=== PATIENT | female | born 1935 | race Caucasian/White ===

== ENCOUNTER 2023-07-17 15:32 | Inpatient (IN) | payer MEDICARE, SELFPAY ==
--- NOTE | ~2023-07-17 | MMUS_ITS ---
EXAMINATION: US GUIDED NEEDLE BIOPSY DATE: 07/19/2023 12:27 CDT INDICATION: Large right 9:00 breast mass TECHNIQUE AND FINDINGS: The risks and potential benefits of the procedure were discussed with the patient, and written inform ed consent was obtained. Timeout procedure was performed. After sterile preparation of the right tomas st, 1% lidocaine was utilized for local anesthesia. A 12-gauge spring-loaded biopsy gun needle was advanced to the edge of the region of interest from a superomedial approach utilizing sonographic guidance. A total of three tissue core samples were obta ined through the lesion. An Inrad tissue marker clip was then placed at the biopsy site. Hemostasis was achieved. A sterile bandage was applied. The patient tolerated procedure well and there was no evidence of immediate complication. The patien t was given verbal instructions prior to departing from the department. A two view mammogram was perf ormed to document tissue marker clip placement. The tissue samples were submitted to surgical patholo gy for histologic analysis. IMPRESSION: Successful ultrasound guided biopsy of right 9:00 breast mass with biopsy marker placement. Please re elsie to pathology report for histologic analysis. Reviewed, dictated and finalized at [facility]. Reviewed, dictated and finalized at [facility]. IMPRESSION: Successful ultrasound guided biopsy of right 9:00 breast mass with biopsy marke r placement. Please refer to pathology report for histologic analysis.
--- NOTE | ~2023-07-17 | CT_ITS ---
EXAMINATION: CT chest abdomen pelvis w con DATE: 07/17/2023 17:20 CDT INDICATION: Headache TECHNIQUE: Computed tomography (CT) of the chest, abdomen, and pelvis was performed without intraveno us contrast. The dose-length product was 269.13 mGy-cm. Automated exposure control and iterative rashad nstruction technique were employed. COMPARISON: Pet/CT report dated 09/08/2015. Study is not currently available for direct visualization . FINDINGS: CHEST CT: Heart size normal. There is mediastinal lymphadenopathy, likely reactive. There is emphysema. There i s bronchiectasis of the right upper lobe with cavitary changes, likely related to prior infectious/in flammatory process with scarring. There is upper lobe infiltrates with nodular appearance in the ante rior lungs bilaterally. No endobronchial lesions. No pneumothorax. There is atherosclerosis of the ao rta. There is normal opacification of the pulmonary arteries without evidence for pulmonary embolism. There is coronary atherosclerosis. ABDOMEN/PELVIS CT: There are prominent parametrial vessels, suspicious for pelvic congestion syndrome. Bladder wall is m ildly thickened. Nonobstructive bowel gas pattern. There is atherosclerosis of the aorta without aneu rysm. There is stenosis of the left renal artery and SMA. There are small low-density lesions in the liver and kidneys, most likely benign cysts. There is advanced lower thoracic and lumbar spondylosis with dextroscoliosis. There is intrahepatic and extrahepatic biliary dilatation. No obstructing stone or mass identified. There is pancreatic ductal dilation. There is left adrenal nodularity, likely du e to underlying benign adenomas. IMPRESSION: 1. Coarse reticulonodular infiltrates of the upper lobes anteriorly which may be postinfectious/infla mmatory, although malignancy is not excluded. There are cavitary changes in the right upper lobe with associated bronchiectasis. Consider correlation with pet/CT scan or short-term follow-up CT in 3 mon ths. Clinically correlate for history of malignancy. 2: Mediastinal lymphadenopathy, likely reactive. 3: Emphysema. 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 Reviewed, dictated and finalized at [facility]. IMPRESSION: 1. Coarse reticulonodular infiltrates of the upper lobes anteriorly which may b e postinfectious/inflammatory, although malignancy is not excluded. There are c avitary changes in the right upper lobe with associated bronchiectasis. Conside r correlation with pet/CT scan or short-term follow-up CT in 3 months. Clinical ly correlate for history of malignancy. 2: Mediastinal lymphadenopathy, likely reactive. 3: Emphysema. 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
--- NOTE | ~2023-07-17 | XR_ITS ---
EXAM: XR abdomen/kub 1V DATE: 07/23/2023 13:48 HISTORY: Esophageal dysphagia. MUSEUM REGISTRAR FOR UGI/SM BOWEL TO RESCHEDULE . COMPARISON: None available. FINDINGS: Bibasilar scar/atelectasis. Moderate volume of colonic feces. No bowel dilation. Atheroscl erotic calcifications. No organomegaly. Osteopenia. Degenerative changes in the spine and bilateral h ips. IMPRESSION: No radiographic evidence of obstruction or ileus. Moderate volume of colonic feces, corre late for clinical findings of constipation. Reviewed, dictated and finalized at [facility]. IMPRESSION: No radiographic evidence of obstruction or ileus. Moderate volume o f colonic feces, correlate for clinical findings of constipation.
--- NOTE | ~2023-07-17 | MR_ITS ---
EXAMINATION: MR brain/brain stem wo/w con DATE: 07/22/2023 11:46 INDICATION: New infarct TECHNIQUE: Magnetic resonance imaging (MRI) of the brain and brainstem was performed without and with 8 mL Multihance intravenous contrast. Sequences included sagittal and axial T1-weighted SE, axial di ffusion-weighted FS SE, axial 3D SWAN, axial T2-weighted FLAIR, and axial T2-weighted FSE. Postcontra st axial and coronal T1-weighted SE was obtained. Apparent diffusion coefficient (ADC) maps were crea reena. COMPARISON: Head CT and CT angiogram dated 07/21/2023 FINDINGS: Multiple foci of restricted diffusion extending anteroposteriorly in the paramedian right frontal and parietal lobes and in the right temporal occipital region consistent with acute infarct with distrib ution along the watershed zones. No intracranial hemorrhage or abnormal intracranial mass lesion. The re are scattered areas of nonspecific increased T2-weighted signal intensity in the cerebral white ma tter, predominantly involving the deep and periventricular white matter. There are no intraparenchyma l signal abnormalities seen on the other pulse sequences. The ventricles are symmetric and normal in size. There are no abnormal extra-axial fluid collections. Flow voids are seen in the cerebral arteri es on the T2-weighted sequences consistent with their expected patency. Trace left mastoid effusion. Mild mucosal thickening the bilateral ethmoid sinuses. Visualized orbits and soft tissues are unremar kable. There are no areas of abnormal enhancement on the post contrast images. IMPRESSION: 1. Multiple small relatively acute infarcts extending in a paramedian sagittal oriented band along th e right frontal and parietal lobes with a few additional small infarcts in the right temporal occipit al region. The distribution at the watershed between the anterior, middle and posterior cerebral circ ulation suggests possible hypotensive etiology. Reviewed, dictated and finalized at location A. IMPRESSION: 1. Multiple small relatively acute infarcts extending in a paramedian sagittal oriented band along the right frontal and parietal lobes with a few additional small infarcts in the right temporal occipital region. The distribution at the watershed between the anterior, middle and posterior cerebral circulation sugge sts possible hypotensive etiology.
--- NOTE | ~2023-07-17 | CT_ITS ---
EXAMINATION: CTA brain carotid DATE: 07/21/2023 16:50 INDICATION: Right frontoparietal infarct. TECHNIQUE: Computed tomographic angiography (CTA) of the head was performed with 96 mL Omnipaque-350 intravenous contrast. CTA of the neck was performed with intravenous contrast. Automated exposure con trol and iterative reconstruction technique were employed. The dose-length product was 957.14 mGy-cm. Maximum intensity projection and volume rendered 3D-reconstructions were created by the technologist on a separate workstation. COMPARISON: Head CT 07/21/2023 FINDINGS: HEAD CTA: There is an infarct in right frontoparietal region. There is no intracranial hemorrhage or abnormal mass lesion. There are scattered areas of low attenuation in the cerebral white matter, whic h is within normal limits for the patient's age. The ventricles are normal in size. There is mild muc osal thickening in the paranasal sinuses. There is a trace left mastoid effusion. The orbits are norm al. The vertebral arteries are codominant. There is no significant stenosis of basilar artery or the posterior cerebral arteries. There is no significant stenosis of the intracranial internal carotid ar teries or anterior or middle cerebral arteries. Anterior communicating artery is normal. There is no aneurysm. NECK CTA: Emphysema is noted. There is scarring in the upper lobes. There is a small right pleural ef fusion. There are no pathologically enlarged lymph nodes. There is no significant stenosis of the roberta tebral arteries. There is mild stenosis of the distal common carotid arteries. There is plaque in the proximal internal carotid arteries. There is an intimal flap in left proximal internal carotid arter y. There is 62% stenosis of the proximal right internal carotid artery relative to normal distal adriana ry lumen diameter (NASCET criteria). There is 0% stenosis of the proximal left internal carotid arter y relative to normal distal artery lumen diameter. IMPRESSION: 1. Acute versus subacute infarct in the right frontoparietal region. 2. No aneurysm or significant intracranial arterial stenosis. 3. 62% stenosis of the proximal right internal carotid artery relative to normal distal artery lumen diameter (NASCET criteria). 4. 0% stenosis of the proximal left internal carotid artery relative to normal distal artery lumen di ameter. Reviewed, dictated and finalized at location E. IMPRESSION: 1. Acute versus subacute infarct in the right frontoparietal region. 2. No aneurysm or significant intracranial arterial stenosis. 3. 62% stenosis of the proximal right internal carotid artery relative to jossie l distal artery lumen diameter (NASCET criteria). 4. 0% stenosis of the proximal left internal carotid artery relative to normal distal artery lumen diameter.
--- NOTE | ~2023-07-17 | XR_ITS ---
XR chest 1V portable 07/17/2023 15:56 Indication: Chest pain. COPD. Procedure: 2 view chest Comparison: No prior studies for comparison. Findings: Heart size normal. There are bilateral interstitial infiltrates. There are emphysematous ch anges. No significant effusion. No pneumothorax. No acute osseous abnormality. There is atheroscleros is of the aorta. Impression: 1: Bilateral interstitial infiltrates which may represent mild edema or pneumonia. 2: Emphysema. Reviewed, dictated and finalized at location A. Impression: 1: Bilateral interstitial infiltrates which may represent mild edema or pneumon ia. 2: Emphysema.
--- NOTE | ~2023-07-17 | CT_ITS ---
EXAMINATION: CT brain wo con DATE: 07/21/2023 15:02 INDICATION: Left arm weakness. TECHNIQUE: Computed tomography (CT) of the head was performed without intravenous contrast. The mA wa s adjusted according to patient size. Iterative reconstruction technique was employed. The dose-lengt h product was 605.33 mGy-cm. COMPARISON: Head CT 07/17/23 FINDINGS: There is an infarct in the right frontoparietal region, not visible on 07/17/23. No intracran ial hemorrhage or abnormal mass lesion. There are scattered areas of low attenuation in the cerebral white matter, which is within normal limits for the patient's age. The ventricles are normal in size. There is mild mucosal thickening in the paranasal sinuses. There is a trace left mastoid effusion. IMPRESSION: 1. Acute versus subacute infarct in the right frontoparietal region. Reviewed, dictated and finalized at location E.
--- NOTE | ~2023-07-17 | CT_ITS ---
EXAMINATION: CT brain wo con DATE: 07/17/2023 17:12 INDICATION: Headache. Dizziness. TECHNIQUE: Computed tomography (CT) of the head was performed without intravenous contrast. The mA wa s adjusted according to patient size. Iterative reconstruction technique was employed. The dose-lengt h product was 681.00 mGy-cm. COMPARISON: Head CT 08/18/2015 FINDINGS: There are scattered areas of low attenuation in the cerebral white matter, which is within normal limits for the patient's age. There is no intracranial hemorrhage, acute infarction, or abnorm al intracranial mass lesion. The ventricles are normal in size. There is mild mucosal thickening in t he paranasal sinuses. The mastoid air cells are normal. The orbits are normal. IMPRESSION: 1. Normal aging brain. Reviewed, dictated and finalized at location E. IMPRESSION: 1. Normal aging brain.
--- NOTE | ~2023-07-17 | XR_ITS ---
EXAMINATION: XR barium swallow modified DATE: 07/20/2023 08:41 INDICATION: Dysphagia. TECHNIQUE: The patient was given barium-containing material of multiple consistencies to swallow by t he speech pathologist while I performed fluoroscopy. Fluoroscopy exposure time was 1.4 minutes. The n umber of fluoroscopy images saved to the PACS was 1. Dose-area product was 0.85 Gy-cm^2. FINDINGS: The oral stage, pharyngeal stage, and cervical/esophageal stage of the swallow are normal. IMPRESSION: 1. Normal modified barium swallow. 2. Please refer to the speech therapy report for recommendations. Reviewed, dictated and finalized at location A.
--- NOTE | 2023-07-17 15:41 | ECG_ITS ---
Measurements Intervals [place] Rate: 109 P: 76 IA: 143 QRS: 70 QRSD: 75 T: 58 QT: 293 Avg RR 549 QTc: 357 QTcB 395 QTcF 357 Interpretive Statements SINUS TACHYCARDIA ABNORMAL RHYTHM ECG SEE SCANNED COPY FOR SIGNATURE MTDD
[2023-07-17 15:44] VITALS: BP 166/86; PULSE 112; RESP 20; O2SAT 96
[2023-07-17 15:56] VITALS: BP 167/95; PULSE 112; RESP 18; TEMP 36.6; O2SAT 98
[2023-07-17 15:59] LABS: Basophils Percent Auto 0.3 % (0.2-1.2); Eosinophils Percent Auto 0.3 % (0-4.4); Hematocrit 39.6 % (37.0-47.0); Hemoglobin 12.7 g/dL (12.0-15.0); Immature Granulocyte Absolute 0.07 K/mm3 (0.00-0.031); Immature Granulocyte Percent A 0.6 % (0-0.5); Lymphocytes Absolute Auto 1.18 K/mm3 (0.9-3.2); Lymphocytes Percent Auto 9.9 % (18.3-44.2); Mean Corpuscular HGB Conc 32.1 g/dl (32-36); Mean Corpuscular Hemoglobin 30.3 pg (26-34); Mean Corpuscular Volume 94.5 fl (80-100); Mean Platelet Volume 9.2 fl (7.4-10.4); Monocytes Absolute Auto 1.5 K/mm3 (0.1-0.6); Monocytes Percent Auto 12.5 % (2.6-8.5); Neutrophils Absolute Auto 9.2 K/mm3 (1.3-6.7); Neutrophils Percent Auto 76.4 % (45.5-73.1); Platelet Count Result 268 k/mm3 (150-375); Red Blood Count 4.19 M/mm3 (4.2-5.4); Red Cell Distribution Width 13.9 % (11.5-14.5)
[2023-07-17 16:01] VITALS: BP 162/80; PULSE 111; RESP 20; O2SAT 95
[2023-07-17 16:11] LABS: Alanine Aminotransferase 39 U/L (6-35); Alkaline Phosphatase 84 U/L (38-126); Anion Gap 5 mmol/L (4-12); Aspartate Amino Transferase 41 U/L (14-36); Bilirubin,Total 0.6 mg/dL (0.2-1.3); Blood Urea Nitrogen 14 mg/dL (7-17); Calcium 9.8 mg/dL (8.4-10.2); Carbon Dioxide 30 mmol/L (22-30); Chloride 103 mmol/L (98-107); Estimated Glomerular Filt Rate > 60; Glucose 143 mg/dL (65-110); Lipase 107 U/L (23-300); Potassium 4.1 mmol/L (3.4-5.0); Sodium 138 mmol/L (137-145)
[2023-07-17 16:23] LABS: Troponin I < 0.012 ng/mL (0.000-0.034)
[2023-07-17 16:26] LABS: INR 1.1; Partial Thromboplastin Time 32.1 Seconds (22.3-36.8); Prothrombin Time 14.2 Seconds (11.1-14.7)
[2023-07-17 16:37] LABS: Appearance Urine Turbid (Clear); Bacteria Urine 4+ /hpf; Bilirubin Urine Negative (Negative); Blood Urine Negative (Negative); Color Urine Dark Yellow (Yellow); Glucose Urine UA Negative (Negative); Ketones Urine Trace mg/dL (Negative); Leukocyte Esterase Ur 3+ LEU/UL (Negative); Nitrate Urine Negative (Negative); Protein Urine 2+ mg/dL (Negative); RBC Urine >100 /hpf (0-2); Specific Grav Ur 1.024 (1.001-1.035); Squamous Epithelial Cell Urine Moderate /hpf (Few); WBC Clumps Urine Present /HPF; WBC Urine >100 /hpf (0-3)
[2023-07-17 17:26] LABS: Add Urine Microscopic? YES
--- NOTE | 2023-07-17 18:21 | ED.CHESTPAIN ---
HPI - Chest Pain General Chief Complaint: Chest Pain Stated Complaint: CHEST PAIN, PAIN URINATION, DIZZINESS Time Seen by Provider: 07/17/23 15:45 Source: patient and family Mode of arrival: ambulatory Limitations: no limitations History of Present Illness HPI narrative: 88-year-old with a history of COPD was brought in by family with a complains of having cough at times productive, chest pain which has been ongoing for past 1 week, headache dizziness, neck pain which has been ongoing for last several months. Patient states that she was seen at [facility] about a year ago for the same and was told that she has COPD she also complains of mass in the right breast which has been there for almost a year patient states that she has not followed with any doctor and she does not go to any primary doctor either no history of fever or chills patient also reports that she lost 80 lb in the last 3 months which was unintentional she she states that she has no taste in her mouth his MD complaint: chest pain Onset (ago): week(s) (1) Timing of current episode: constant Pain radiation: none Severity: moderate Quality: aching Relieving factors: nothing Exacerbating factors: nothing Treatment prior to arrival: none Risk Factors Coronary artery disease risk factors: none Related Data Allergies Allergy/AdvReac Type Severity Reaction Status Date / Time No Known Allergies Allergy Unverified 08/18/15 14:44 Review of Systems Review of Systems: All systems reviewed & are unremarkable except as noted in HPI and below Constitutional: Constitutional: Reports as per HPI Eyes: Eyes: Reports no additional eye complaints ENT: Reports system reviewed and no additional complaints, except as documented Cardiovascular: Cardiovascular: Reports as per HPI Respiratory: Respiratory: Reports as per HPI Gastrointestinal: Gastrointestinal: Reports as per HPI Musculoskeletal: Musculoskeletal: Reports no additional musculoskeletal complaints Neurologic: Reports as per HPI Psychiatric: Psychiatric: Reports no additional psychiatric complaints Exam Narrative: GENERAL: Well-appearing,thin and in no acute distress. HEAD: Normocephalic, atraumatic. EYES: PERRLA and EOMI. ENT: Nares clear, no rhinorrhea or epistaxis. Mucous membranes moist. NECK: Supple. CHEST: Clear to auscultation. No respiratory distress. Examination of the night was there is a solid mass in the right 7 to 8 O clock position HEART: Regular rate and rhythm. No murmur heard. Normal peripheral pulses. ABDOMEN: Soft, nontender, nondistended, normal active bowel sounds. EXTREMITIES: Normal range of motion. No edema. SKIN: Warm, dry, no rash. NEURO: No focal deficits. Alert and oriented x3. PSYCH: Normal mood and affect. Course Course Emergency Course: Notified patient and her family about the lab work, CT findings. Discussed with the hospitalist at accepted the patient. Vital Signs Vital signs: Vital Signs Pulse Rate 112 H 07/17/23 15:44 Respiratory Rate 20 07/17/23 15:44 Blood Pressure 166/86 H 07/17/23 15:44 Pulse Oximetry 96 07/17/23 15:44 Temperature 36.6 C 07/17/23 15:56 Pulse Rate 111 H 07/17/23 16:01 Respiratory Rate 20 07/17/23 16:01 Blood Pressure 162/80 H 07/17/23 16:01 Pulse Oximetry 95 07/17/23 16:01 Oxygen Delivery Room Air 07/17/23 16:19 MDM - Chest Pain Differential Diagnosis Differential diagnosis: Likely fracture of rib, atypical chest pain and other (Lung cancer, breast cancer) Medical Records Data Attestation: I reviewed the patient's medical records. Lab Data Attestation: I reviewed the patient's lab results. 07/17/23 15:53 07/17/23 15:53 Labs: Lab Results 07/17/23 07/17/23 Range/Units 15:53 16:07 WBC 12.0 H (4.5-10.0) K/mm3 RBC 4.19 L (4.2-5.4) M/mm3 Hgb 12.7 (12.0-15.0) g/dL Hct 39.6 (37.0-47.0) % MCV 94.5 (80-100) fl MCH 30.3 (26-34) pg MCHC 32.1 (32-36) g/dl RDW 13.9 (11.5-14.5) % Plt Count 268 (150-375) k/mm3 MPV 9.2 (7.4-10.4) fl Immature Gran % (Auto) 0.6 H (0-0.5) % Neut % (Auto) 76.4 H (45.5-73.1) % Lymph % (Auto) 9.9 L (18.3-44.2) % [place] % (Auto) 12.5 H (2.6-8.5) % Eos % (Auto) 0.3 (0-4.4) % Baso % (Auto) 0.3 (0.2-1.2) % Lymph # (Auto) 1.18 (0.9-3.2) K/mm3 [place] # (Auto) 1.5 H (0.1-0.6) K/mm3 Eos # (Auto) 0.0 (0-0.3) K/mm3 Baso # (Auto) 0.0 (0.0-0.1) K/mm3 Abs Immat Gran (auto) 0.07 H (0.00-0.031) K/mm3 Absolute Neuts (auto) 9.2 H (1.3-6.7) K/mm3 Absolute Nucleated RBC 0.000 (0.0-0.012) K/mm3 Nucleated RBC % 0.0 (0.0-0.2) % PT 14.2 (11.1-14.7) Seconds INR 1.1 APTT 32.1 (22.3-36.8) Seconds Sodium 138 (137-145) mmol/L Potassium 4.1 (3.4-5.0) mmol/L Chloride 103 (98-107) mmol/L Carbon Dioxide 30 (22-30) mmol/L Anion Gap 5 (4-12) mmol/L BUN 14 (7-17) mg/dL Creatinine 0.50 L (0.7-1.0) mg/dL Estim Creat Clear Calc Not Reportable Estimated GFR > 60 (59 - ) Glucose 143 H (65-110) mg/dL Calcium 9.8 (8.4-10.2) mg/dL Total Bilirubin 0.6 (0.2-1.3) mg/dL AST 41 H (14-36) U/L ALT 39 H (6-35) U/L Alkaline Phosphatase 84 (38-126) U/L Troponin I < 0.012 (0.000-0.034) ng/mL Total Protein 7.0 (6.3-8.2) g/dL Albumin 4.0 (3.5-5.1) g/dL Lipase 107 (23-300) U/L Urine Color Dark yellow (Yellow) Urine Appearance Turbid H (Clear) Urine pH 6.0 (5.0-9.0) Ur Specific [place] 1.024 (1.001-1.035) Urine Protein 2+ H (Negative) mg/dL Urine Glucose (UA) Negative (Negative) mg/dL Urine Ketones Trace H (Negative) mg/dL Ur Blood (Man) Negative (Negative) Urine Nitrate Negative (Negative) Urine Bilirubin Negative (Negative) Urine Urobilinogen 1.0 (<2.0) mg/dL Leukocyte Esterase Rfl 3+ H (Negative) JULIO/UL Urine RBC >100 H (0-2) /hpf Urine WBC >100 H (0-3) /hpf Urine WBC Clumps Present H (None) /HPF Ur Squamous Epith Cells Moderate (Few) /hpf Urine Bacteria 4+ /hpf Urine Casts 11-20 Urine Characteristics Cloudy,Sediment Imaging Data Radiologist's impression: ITS Impressions Chest X-Ray 07/17/23 16:02 Impression: 1: Bilateral interstitial infiltrates which may represent mild edema or pneumonia. 2: Emphysema. Chest/Abdomen/Pelvis CT 07/17/23 17:19 IMPRESSION: 1. Coarse reticulonodular infiltrates of the upper lobes anteriorly which may be postinfectious/inflammatory, although malignancy is not excluded. There are cavitary changes in the right upper lobe with associated bronchiectasis. Consider correlation with pet/CT scan or short-term follow-up CT in 3 months. Clinically correlate for history of malignancy. 2: Mediastinal lymphadenopathy, likely reactive. 3: Emphysema. 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 Head CT 07/17/23 17:19 IMPRESSION: 1. Normal aging brain. ECG Data EKG #1: ECG completion date: 07/17/23 ECG completion time: 15:41 EKG Interpretation: tachycardia (109), no ST changes, normal QT and NL axis Discharge Plan Discharge Clinical Impression: Chest pain, Lung mass, Breast mass, right Patient Disposition: Still a Patient Condition: Stable Follow-up/Referrals: PHYSICIAN,OYSTER FISHERMAN [Primary Care Provider] - Time of Disposition: 18:35
[2023-07-17] MEDS: SODIUM CHLORIDE 0.9% IV 1,000 ML 150 ML IV CONT (18:26)
[2023-07-17] MEDS: IPRATROPIUM 0.5 MG/ALBUTEROL SULFATE 2.5 MG AMPUL.NEB 3 ML INHALATION (18:56)
[2023-07-17 18:57] VITALS: PULSE 114; RESP 22
[2023-07-17 19:39] VITALS: BP 144/67; PULSE 117; RESP 16; O2SAT 95
[2023-07-17 20:00] VITALS: BP 131/71; PULSE 110; RESP 16; TEMP 36.7; O2SAT 92
--- NOTE | 2023-07-17 20:32 | ADMGEN ---
This patient, Valeria Deutsch, was admitted to 2 Medical Room 241-01. Patient/family oriented to hospital policies and general routines including ID bracelet, bed and alarms, visiting hours, pain management, procedures, bathroom and other care routines, personal items, smoking policy, room service/diet, and visiting hours. Information on how to activate the Rapid Response Team has been discussed. Patient/Family are encouraged to report perceived risks to care and to ask questions if they do not understand what they are told or what they should do.
--- NOTE | 2023-07-17 20:53 | P.HP_ITS ---
H&P: HPI History of Present Illness Date/Time: 07/17/23 20:53 Chief Complaint: weight loss Narrative: This is an 88-year-old with no significant past medical history presents to the emergency room due to ribcage pain and weight loss loss of appetite and loss of taste, Poor per orally intake. Patient was complaining of a spot of tenderness in her chest next to her breast on the right side noted 1st 2 years ago. EXAMINATION: CT chest abdomen pelvis w con DATE: 07/17/2023 17:20 CDT INDICATION: Headache TECHNIQUE: Computed tomography (CT) of the chest, abdomen, and pelvis was performed without intravenous contrast. The dose-length product was 269.13 mGy- cm. Automated exposure control and iterative reconstruction technique were employed. COMPARISON: Pet/CT report dated 09/08/2015. Study is not currently available for direct visualization. FINDINGS: CHEST CT: Heart size normal. There is mediastinal lymphadenopathy, likely reactive. There is emphysema. There is bronchiectasis of the right upper lobe with cavitary changes, likely related to prior infectious/inflammatory process with scarring. There is upper lobe infiltrates with nodular appearance in the anterior lungs bilaterally. No endobronchial lesions. No pneumothorax. There is atherosclerosis of the aorta. There is normal opacification of the pulmonary arteries without evidence for pulmonary embolism. There is coronary atherosclerosis. ABDOMEN/PELVIS CT: There are prominent parametrial vessels, suspicious for pelvic congestion syndrome. Bladder wall is mildly thickened. Nonobstructive bowel gas pattern. There is atherosclerosis of the aorta without aneurysm. There is stenosis of the left renal artery and SMA. There are small low-density lesions in the liver and kidneys, most likely benign cysts. There is advanced lower thoracic and lumbar spondylosis with dextroscoliosis. There is intrahepatic and extrahepatic biliary dilatation. No obstructing stone or mass identified. There is pancreatic ductal dilation. There is left adrenal nodularity, likely due to underlying benign adenomas. IMPRESSION: 1. Coarse reticulonodular infiltrates of the upper lobes anteriorly which may be postinfectious/inflammatory, although malignancy is not excluded. There are cavitary changes in the right upper lobe with associated bronchiectasis. Consider correlation with pet/CT scan or short-term follow-up CT in 3 months. Clinically correlate for history of malignancy. 2: Mediastinal lymphadenopathy, likely reactive. 3:? Emphysema. 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 EXAMINATION: CT brain wo con DATE: 07/17/2023 17:12 INDICATION: Headache. Dizziness. TECHNIQUE: Computed tomography (CT) of the head was performed without intravenous contrast. The mA was adjusted according to patient size. Iterative reconstruction technique was employed. The dose-length product was 681.00 mGy- cm. COMPARISON: Head CT 08/18/2015 FINDINGS: There are scattered areas of low attenuation in the cerebral white matter, which is within normal limits for the patient's age. There is no intracranial hemorrhage, acute infarction, or abnormal intracranial mass lesion. The ventricles are normal in size. There is mild mucosal thickening in the paranasal sinuses. The mastoid air cells are normal. The orbits are normal. IMPRESSION: 1. Normal aging brain. XR chest 1V portable 07/17/2023 15:56 Indication: Chest pain. COPD. Procedure: 2 view chest Comparison: No prior studies for comparison. Findings: Heart size normal. There are bilateral interstitial infiltrates. There are emphysematous changes. No significant effusion. No pneumothorax. No acute osseous abnormality. There is atherosclerosis of the aorta. Impression: 1: Bilateral interstitial infiltrates which may represent mild edema or pneumonia. 2:? Emphysema. Review of Systems Review of Systems: Weight loss, loss of taste, poor per orally intake, poor appetite, ribcage tenderness Constitutional: Constitutional: Reports weight loss [facility] Past Medical History Medical History (Updated 07/26/23 @ 14:23 by Juan Dong MD) Breast cancer Esophageal ring Social History Social History Smoking packs per day: 0.5 Smoking cigarettes per day: 10.0 Smoking status: Current every day smoker Tobacco type: cigarettes Second hand tobacco smoke exposure: Yes Alcohol intake: never Substance use: never Substance use type: does not use Do You Feel Safe in your Home?: Yes Lack of Transportation: No Lack of Food: Never True Current Housing: I Have Housing Concerned About Future Housing: No Difficulty Paying Gas/Electric Bills: No Difficulty Paying for Meds: No Currently Unemployed: No Education: High School Diploma/GED Difficulty w/ Childcare or Family Care: No Spiritual care concerns: No Meds Home Medications and Allergies Home Medications Medication Instructions Recorded Confirmed Type multivitamin 1 tablet PO DAILY 07/17/23 07/17/23 History aspirin 81 mg tablet,delayed 81 mg PO QAM #60 tabs 07/26/23 Rx release clopidogrel 75 mg tablet (Plavix) 75 mg PO DAILY #30 tabs 07/26/23 Rx letrozole 2.5 mg tablet (Femara) 2.5 mg PO QAM #60 tabs 07/26/23 Rx pantoprazole 40 mg tablet,delayed 40 mg PO QAM #60 tabs 07/26/23 Rx release Allergies Allergy/AdvReac Type Severity Reaction Status Date / Time No Known Allergies Allergy Unverified 08/18/15 14:44 Vital Signs Vital Signs - 24 hr 07/17/23 15:56 07/17/23 16:19 07/17/23 15:44 Temperature 97.8 F Pulse Rate 112 H 112 H Respiratory Rate 18 20 Blood Pressure 167/95 H 166/86 H Pulse Oximetry 98 96 Oxygen Delivery Room Air Room Air 07/17/23 16:01 07/17/23 18:57 07/17/23 19:39 Temperature Pulse Rate 111 H 114 H 117 H Respiratory Rate 20 22 H 16 Blood Pressure 162/80 H 144/67 H Pulse Oximetry 95 95 Oxygen Delivery 07/17/23 20:00 Temperature 98.1 F Pulse Rate 110 H Respiratory Rate 16 Blood Pressure 131/71 Pulse Oximetry 92 Oxygen Delivery Exam Narrative: patient is laying in bed Const: General: comfortable, no acute distress, well developed, alert, awake and average body habitus Nutritional Appearance: underweight Orientation/consciousness: patient oriented x3 HENMT: Head: normal to inspection, normocephalic and atraumatic Ears: hearing grossly normal bilaterally Face/Nose/Sinus: normal facial exam Face and sinus: normal facial exam Eyes: General: appearance normal, both eyes and all related structures Pupils: Equal, round and reactive pupils present EOM: EOMs intact bilaterally Neck: Neck: full ROM, no lymphadenopathy and no JVD Thyroid: thyroid normal Lymphatic: no lymphadenopathy noted Chest: Breast/axilla inspection: abnormal inspection of the breast right lower outer retraction other (lump) Resp: Effort & Inspection: normal respiratory effort and able to speak in complete sentences Auscultation: clear to auscultation bilaterally Cardio: Jugular venous distension: no JVD Rate: regular rate Rhythm: regular rhythm Heart sounds: S1 normal heart sound present and S2 normal heart sound present GI: GI Palp: Yes Soft to palpation and Yes No hepatosplenomegaly present : General: Yes deferred Skin: Rashes: no rashes Neuro: General: patient oriented x3 and CN's II-XI intact bilaterally Cranial nerves: Yes CN's II-XII intact bilaterally and Yes Equal, round and reactive pupils present Cognition (Neuro): normal cognition Speech: normal speech Gait exam (Neuro): Unable to assess gait Motor exam (neuro): 5/5 motor strength present throughout Extrem: General: normal to inspection, full ROM, no joint enlargement and no pedal edema H&P: Results Labs Labs: Short CBC 07/17/23 Range/Units 15:53 WBC 12.0 H (4.5-10.0) K/mm3 Hgb 12.7 (12.0-15.0) g/dL Hct 39.6 (37.0-47.0) % Plt Count 268 (150-375) k/mm3 BMP 07/17/23 15:53 Sodium 138 Potassium 4.1 Chloride 103 Carbon Dioxide 30 BUN 14 Creatinine 0.50 L Glucose 143 H Calcium 9.8 Cardiac Enzymes 07/17/23 Range/Units 15:53 Troponin I < 0.012 (0.000-0.034) ng/mL Liver Function 07/17/23 Range/Units 15:53 Total Bilirubin 0.6 (0.2-1.3) mg/dL AST 41 H (14-36) U/L ALT 39 H (6-35) U/L Alkaline Phosphatase 84 (38-126) U/L Albumin 4.0 (3.5-5.1) g/dL Urine 07/17/23 Range/Units 16:07 Urine Color Dark yellow (Yellow) Urine Appearance Turbid H (Clear) Urine pH 6.0 (5.0-9.0) Ur Specific [place] 1.024 (1.001-1.035) Urine Protein 2+ H (Negative) mg/dL Urine Glucose (UA) Negative (Negative) mg/dL Assessment and Plan Assessment and plan (1) Breast mass, right: Qualifiers: Breast mass location: lower outer quadrant Qualified Code(s): N63.13 - Unspecified lump in the right breast, lower outer quadrant Code(s): N63.10 - Unspecified lump in the right breast, unspecified quadrant Status: Acute Assessment and Plan: admit to regular medical floor general surgery consult (2) Lung mass: Code(s): R91.8 - Other nonspecific abnormal finding of lung field Status: Acute Assessment and Plan: has likely to be metastatic disease (3) Chest pain: Qualifiers: Chest pain type: unspecified Qualified Code(s): R07.9 - Chest pain, unspecified Code(s): R07.9 - Chest pain, unspecified Status: Acute Assessment and Plan: secondary most likely to tumor metastasis (4) Weight loss: Code(s): R63.4 - Abnormal weight loss Status: Acute Assessment and Plan: secondary to malignancy
[2023-07-17 21:00] VITALS: BMI 16.5
[2023-07-17 21:35] LABS: Troponin I < 0.012 ng/mL (0.000-0.034)
[2023-07-18] VITALS (16 sets, daily range): BP systolic 123–160; BP diastolic 52–67; PULSE 91–113; RESP 16–24; TEMP 36.1–37.2; O2SAT 91–94; BMI 16.5
[2023-07-18] MEDS: IPRATROPIUM 0.5 MG/ALBUTEROL SULFATE 2.5 MG AMPUL.NEB 3 ML INHALATION ×4 (03:16→20:16)
[2023-07-18] MEDS: SODIUM CHLORIDE 0.9% IV 1,000 ML 125 ML IV CONT ×3 (06:12→20:41)
[2023-07-18 07:34] LABS: Basophils Percent Auto 0.3 % (0.2-1.2); Eosinophils Percent Auto 0.2 % (0-4.4); Hematocrit 36.4 % (37.0-47.0); Hemoglobin 11.7 g/dL (12.0-15.0); Immature Granulocyte Absolute 0.04 K/mm3 (0.00-0.031); Immature Granulocyte Percent A 0.4 % (0-0.5); Lymphocytes Absolute Auto 1.04 K/mm3 (0.9-3.2); Lymphocytes Percent Auto 10.4 % (18.3-44.2); Mean Corpuscular HGB Conc 32.1 g/dl (32-36); Mean Corpuscular Hemoglobin 30.5 pg (26-34); Mean Corpuscular Volume 94.8 fl (80-100); Mean Platelet Volume 9.3 fl (7.4-10.4); Monocytes Absolute Auto 1.3 K/mm3 (0.1-0.6); Monocytes Percent Auto 12.8 % (2.6-8.5); Neutrophils Absolute Auto 7.6 K/mm3 (1.3-6.7); Neutrophils Percent Auto 75.9 % (45.5-73.1); Platelet Count Result 244 k/mm3 (150-375); Red Blood Count 3.84 M/mm3 (4.2-5.4); Red Cell Distribution Width 13.9 % (11.5-14.5)
[2023-07-18 07:44] LABS: Anion Gap 7 mmol/L (4-12); Blood Urea Nitrogen 10 mg/dL (7-17); Calcium 8.9 mg/dL (8.4-10.2); Carbon Dioxide 26 mmol/L (22-30); Chloride 107 mmol/L (98-107); Estimated CRCL calculation 46 ml/min; Estimated Glomerular Filt Rate > 60; Glucose 93 mg/dL (65-110); Potassium 3.9 mmol/L (3.4-5.0); Sodium 140 mmol/L (137-145)
[2023-07-18] MEDS: MULTIVITAMINS THERAPEUTIC TAB (*BKC) 1 TABLET PO (10:00)
--- NOTE | 2023-07-18 12:14 | P.PNIM_ITS ---
Progress Note: A&P Assessment and Plan (1) Lung mass: Code(s): R91.8 - Other nonspecific abnormal finding of lung field Status: Acute Assessment and Plan: * CT showed coarse reticulonodular infiltrates of the upper lobes anteriorly which may be postinfectious/inflammatory, although malignancy is not excluded. There are cavitary changes in the right upper lobe with associated bronchiectasis. Consider correlation with pet/CT scan or short-term follow-up CT in 3 months. Clinically correlate for history of malignancy. * Oncology consulted (2) Weight loss: Code(s): R63.4 - Abnormal weight loss Status: Acute Assessment and Plan: * patient reports 30+ lb weight loss in past 3 months. * will consult head tennis professional (3) UTI (urinary tract infection): Code(s): N39.0 - Urinary tract infection, site not specified Status: Acute Assessment and Plan: * abnormal UA on admission * Start on Rocephin * UA culture pending Subjective Date/time seen: 07/18/23 12:14 Interval history: Patient is not in any acute distress this morning. She is sitting up in bed, satting fine on RA. She denies chest pain or SOB. Oncology consulted for lung mass found on imaging. Awaiting evaluation. UA culture pending. Will start on Rocephin. Review of Systems Review of Systems: All systems reviewed & are unremarkable except as noted in HPI and below Exam Narrative: GENERAL: Well-appearing, thin and in no acute distress. HEAD: Normocephalic, atraumatic. EYES: PERRLA and EOMI. ENT: Mucous membranes moist. NECK: Supple. CHEST: Lungs clear to auscultation. No respiratory distress. HEART: RRR. No murmur heard. Normal peripheral pulses. ABDOMEN: Soft, nontender, nondistended, normal active bowel sounds. EXTREMITIES: Normal range of motion. No edema. SKIN: Warm, dry, no rash. NEURO: Alert and oriented x3. No focal deficits. PSYCH: Normal mood and affect. Objective Data Vital Signs Vital Signs: Vital Signs - 24 hr 07/17/23 15:56 07/17/23 16:19 07/17/23 15:44 Temperature 97.8 F Pulse Rate 112 H 112 H Respiratory Rate 18 20 Blood Pressure 167/95 H 166/86 H Pulse Oximetry 98 96 Oxygen Delivery Room Air Room Air 07/17/23 16:01 07/17/23 18:57 07/17/23 19:39 Temperature Pulse Rate 111 H 114 H 117 H Respiratory Rate 20 22 H 16 Blood Pressure 162/80 H 144/67 H Pulse Oximetry 95 95 Oxygen Delivery 07/17/23 20:00 07/18/23 00:35 07/18/23 03:20 Temperature 98.1 F 97.1 F L Pulse Rate 110 H 96 91 Respiratory Rate 16 16 16 Blood Pressure 131/71 123/59 L Pulse Oximetry 92 93 Oxygen Delivery 07/18/23 03:21 07/18/23 03:30 07/18/23 04:50 Temperature 97.0 F L Pulse Rate 95 91 Respiratory Rate 16 16 Blood Pressure 138/52 L Pulse Oximetry 92 94 Oxygen Delivery Room Air 07/18/23 08:36 07/18/23 08:36 07/18/23 08:45 Temperature Pulse Rate 93 97 Respiratory Rate 16 16 Blood Pressure Pulse Oximetry 91 Oxygen Delivery Room Air 07/18/23 08:00 07/18/23 10:00 Temperature 98.1 F Pulse Rate 105 H Respiratory Rate 22 H Blood Pressure 160/64 H Pulse Oximetry 94 Oxygen Delivery Room Air Intake/Output Intake/Output: Intake & Output 07/15/23 07/16/23 07/17/23 07/18/23 23:59 23:59 23:59 23:59 Intake Total 520 Output Total 50 Balance -50 520 Meds/Results Medications: Active Medications Generic Name Dose Route Start Last Admin Trade Name Freq PRN Reason Stop Dose Admin Acetaminophen 650 mg 07/17/23 18:36 Acetaminophen 325 Mg Tablet PO Q4H PRN Mild Pain (1-3) or Fever Albuterol/Ipratropium 3 ml 07/17/23 20:00 07/18/23 08:36 Ipratropium 0.5 Mg/Albuterol Sulfate 2.5 Mg Ampul.Neb 3 Ml INHALATION 3 ml Q6HRT GLEN Administration Calcium Carbonate 200 mg 07/18/23 09:45 Calcium Carbonate (Tums) 500 Mg (200 Mg Elemental) PO Q6H PRN Indigestion Sodium Chloride 1,000 mls @ 125 mls/hr 07/17/23 18:45 07/18/23 06:12 Normal Saline Iv IV CONT 125 mls/hr .Q8H GLEN Administration Morphine Sulfate 2 mg 07/17/23 18:36 Morphine Sulfate (*Crx) 2 Mg/Ml Inj IV PUSH Q2H PRN Pain Rated 7-10 Multivitamins Therapeutic 1 tablet 07/18/23 09:00 07/18/23 10:00 Multivitamins Therapeutic Tab (*Bkc) PO 1 tablet DAILY GLEN Administration Ondansetron HCl 4 mg 07/17/23 18:36 Ondansetron Inj 4 Mg/2 Ml Vial IV PUSH Q4H PRN Nausea Radiology Results: ITS Impressions Chest X-Ray 07/17/23 16:02 Impression: 1: Bilateral interstitial infiltrates which may represent mild edema or pneumonia. 2: Emphysema. Chest/Abdomen/Pelvis CT 07/17/23 17:19 IMPRESSION: 1. Coarse reticulonodular infiltrates of the upper lobes anteriorly which may be postinfectious/inflammatory, although malignancy is not excluded. There are cavitary changes in the right upper lobe with associated bronchiectasis. Consider correlation with pet/CT scan or short-term follow-up CT in 3 months. Clinically correlate for history of malignancy. 2: Mediastinal lymphadenopathy, likely reactive. 3: Emphysema. 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 Head CT 07/17/23 17:19 IMPRESSION: 1. Normal aging brain. Labs Labs: Laboratory Results - last 24 hr 07/17/23 07/17/23 07/17/23 15:53 16:07 21:02 WBC 12.0 H RBC 4.19 L Hgb 12.7 Hct 39.6 MCV 94.5 MCH 30.3 MCHC 32.1 RDW 13.9 Plt Count 268 MPV 9.2 Immature Gran % (Auto) 0.6 H Neut % (Auto) 76.4 H Lymph % (Auto) 9.9 L [place] % (Auto) 12.5 H Eos % (Auto) 0.3 Baso % (Auto) 0.3 Lymph # (Auto) 1.18 [place] # (Auto) 1.5 H Eos # (Auto) 0.0 Baso # (Auto) 0.0 Abs Immat Gran (auto) 0.07 H Absolute Neuts (auto) 9.2 H Absolute Nucleated RBC 0.000 Nucleated RBC % 0.0 PT 14.2 INR 1.1 APTT 32.1 Sodium 138 Potassium 4.1 Chloride 103 Carbon Dioxide 30 Anion Gap 5 BUN 14 Creatinine 0.50 L Estim Creat Clear Calc Not Reportable Estimated GFR > 60 Glucose 143 H Calcium 9.8 Total Bilirubin 0.6 AST 41 H ALT 39 H Alkaline Phosphatase 84 Troponin I < 0.012 < 0.012 Total Protein 7.0 Albumin 4.0 Lipase 107 Urine Color Dark yellow Urine Appearance Turbid H Urine pH 6.0 Ur Specific [place] 1.024 Urine Protein 2+ H Urine Glucose (UA) Negative Urine Ketones Trace H Ur Blood (Man) Negative Urine Nitrate Negative Urine Bilirubin Negative Urine Urobilinogen 1.0 Leukocyte Esterase Rfl 3+ H Urine RBC >100 H Urine WBC >100 H Urine WBC Clumps Present H Ur Squamous Epith Cells Moderate Urine Bacteria 4+ Urine Casts 11-20 07/18/23 07:12 WBC 10.0 RBC 3.84 L Hgb 11.7 L Hct 36.4 L MCV 94.8 MCH 30.5 MCHC 32.1 RDW 13.9 Plt Count 244 MPV 9.3 Immature Gran % (Auto) 0.4 Neut % (Auto) 75.9 H Lymph % (Auto) 10.4 L [place] % (Auto) 12.8 H Eos % (Auto) 0.2 Baso % (Auto) 0.3 Lymph # (Auto) 1.04 [place] # (Auto) 1.3 H Eos # (Auto) 0.0 Baso # (Auto) 0.0 Abs Immat Gran (auto) 0.04 H Absolute Neuts (auto) 7.6 H Absolute Nucleated RBC 0.000 Nucleated RBC % 0.0 PT INR APTT Sodium 140 Potassium 3.9 Chloride 107 Carbon Dioxide 26 Anion Gap 7 BUN 10 Creatinine 0.50 L Estim Creat Clear Calc 46 Estimated GFR > 60 Glucose 93 Calcium 8.9 Total Bilirubin AST ALT Alkaline Phosphatase Troponin I Total Protein Albumin Lipase Urine Color Urine Appearance Urine pH Ur Specific [place] Urine Protein Urine Glucose (UA) Urine Ketones Ur Blood (Man) Urine Nitrate Urine Bilirubin Urine Urobilinogen Leukocyte Esterase Rfl Urine RBC Urine WBC Urine WBC Clumps Ur Squamous Epith Cells Urine Bacteria Urine Casts Quality VTE Prophylaxis VTE prophylaxis: mechanical ordered
--- NOTE | 2023-07-18 14:58 | PDONCCN ---
HPI - Date of Consult Date/Time: 07/19/23 13:49 <Reymundo Lee - 07/19/23 13:51> 07/18/23 14:58 <Xiomy Griffin - 07/18/23 14:59> Requesting Physician: Niranjan Carlton DO <Reymundo Lee - 07/19/23 13:51> Niranjan Carlton, <Xiomy Griffin - 07/18/23 14:59> Primary Care Provider: RETAIL LOAN ORIGINATOR ASSISTANT PHYSICIAN <Reymundo Lee - 07/19/23 13:51> RETAIL LOAN ORIGINATOR ASSISTANT PHYSICIAN <Xiomy Griffin - 07/18/23 14:59> - Consult Narrative Reason for consult: Lung Mass, <Xiomy Griffin - 07/18/23 14:59> Narrative: Valeria Deutsch is a 88 year old female <Reymundo Lee - 07/19/23 13:51> Valeria Deutsch is a 88 year old female with a past medical history of COPD. She has noticed a productive cough, with headache and dizziness. She was also having urinary frequency and urgency and states she was unable to pee for 3 days. Urinalysis is positive for infection. CT chest shows coarse reticulonodular infiltrates of the upper lobes anteriorly which may be postinfectious/inflammatory, although malignancy is not excluded. There are cavitary changes in the right upper lobe with associated bronchiectasis. Clinically correlate for history of malignancy. Mediastinal lymphadenopathy, likely reactive. She also has a right breast mass that has been around for about 2 years. She has gotten mammograms in the past which have been normal, but has not since this area of concern has popped up. It does not drain and sometimes causes her discomfort. She reports about a 20lb weight loss with fatigue. She denies any bleeding, fevers, chills, night sweats, or frequent infections. She is in active smoker for the last 35 years. Reports a family history of malignancy but no personal. Labs are notable for WBC 10, Hgb 11.7, Hct 36, Plt 244, Cr 0.50. <Xiomy Griffin - 07/18/23 16:48> Review of Systems - Review of Systems All systems reviewed & are unremarkable except as noted in HPI and bel <Xiomy Griffin - 07/18/23 16:48> PMFSH - Social History Social History: Social History (Last Reviewed 07/17/23 @ 18:25 by Jayce Calvo MD) Alcohol Use: Alcohol intake: never Substance Use: Substance use: never Substance use type: does not use Others: Spiritual care concerns: No Smoking Status: Smoking status: Current every day smoker Tobacco type: cigarettes Second hand tobacco smoke exposure: Yes Smoking Pack-years: Smoking packs per day: 0.5 Smoking cigarettes per day: 10.0 Social Determinants of Health: Do You Feel Safe in your Home?: Yes Has the Lack of Transportation Kept You From Medical Appointments or From Getting Medications?: No Within the Past 12 Months, Were You Worried Whether Your Food Would Run Out Before You Got Money to Buy More?: Never True What is Your Housing Situation Today?: I Have Housing Are You Worried That in the Next 2 Months, You May Not Have Your Own Housing to Live In?: No Do You Have Trouble Paying Your Heating Or Electricity Bill?: No Do You Have Trouble Paying For Medicines?: No Are You Currently Unemployed and Looking for Work?: No Highest Level of Education Completed: High School Diploma/GED Do You Have Trouble With Childcare or the Care of a Family Member?: No <Reymundo Lee - 07/19/23 13:51> Social History (Last Reviewed 07/17/23 @ 18:25 by Jayce Calvo MD) Alcohol Use: Alcohol intake: never Substance Use: Substance use: never Substance use type: does not use Others: Spiritual care concerns: No Smoking Status: Smoking status: Current every day smoker Tobacco type: cigarettes Second hand tobacco smoke exposure: Yes Smoking Pack-years: Smoking packs per day: 0.5 Smoking cigarettes per day: 10.0 Social Determinants of Health: Do You Feel Safe in your Home?: Yes Has the Lack of Transportation Kept You From Medical Appointments or From Getting Medications?: No Within the Past 12 Months, Were You Worried Whether Your Food Would Run Out Before You Got Money to Buy More?: Never True What is Your Housing Situation Today?: I Have Housing Are You Worried That in the Next 2 Months, You May Not Have Your Own Housing to Live In?: No Do You Have Trouble Paying Your Heating Or Electricity Bill?: No Do You Have Trouble Paying For Medicines?: No Are You Currently Unemployed and Looking for Work?: No Highest Level of Education Completed: High School Diploma/GED Do You Have Trouble With Childcare or the Care of a Family Member?: No <RoryroloWooXiomy - 07/18/23 14:59> Exam - General Pt is resting in bed in no acute distress <EliasXiomy - 07/18/23 16:48> - Vital Signs Vital Signs - 24 hr 07/18/23 14:28 07/18/23 14:37 07/18/23 16:00 Temperature 37.2 C Pulse Rate 96 102 H 102 H Respiratory Rate 16 16 24 H Blood Pressure 141/66 H Pulse Oximetry 92 Oxygen Delivery Fraction of Inspired Oxygen 07/18/23 20:17 07/18/23 20:00 07/18/23 20:00 Temperature 37.1 C Pulse Rate 109 H 113 H Respiratory Rate 18 16 Blood Pressure 143/67 H Pulse Oximetry 94 Oxygen Delivery Room Air Fraction of Inspired Oxygen 07/19/23 00:35 07/18/23 20:15 07/19/23 02:18 Temperature 36.6 C Pulse Rate 81 86 Respiratory Rate 16 18 Blood Pressure 144/70 H Pulse Oximetry 93 92 Oxygen Delivery Room Air Fraction of Inspired Oxygen 07/18/23 20:27 07/19/23 07:44 07/19/23 07:44 Temperature Pulse Rate 111 H 91 Respiratory Rate 18 18 Blood Pressure Pulse Oximetry 92 Oxygen Delivery Room Air Fraction of Inspired Oxygen 21 07/19/23 05:00 07/19/23 08:00 07/19/23 08:10 Temperature 36.4 C L 36.1 C L Pulse Rate 87 106 H Respiratory Rate 16 18 Blood Pressure 151/72 H 151/66 H Pulse Oximetry 93 94 Oxygen Delivery Room Air Fraction of Inspired Oxygen 07/19/23 12:28 07/19/23 13:26 07/19/23 07:55 Temperature 37.1 C Pulse Rate 99 104 H 88 Respiratory Rate 16 18 18 Blood Pressure 146/63 H Pulse Oximetry 95 Oxygen Delivery Fraction of Inspired Oxygen 07/19/23 13:35 Temperature Pulse Rate 100 Respiratory Rate 18 Blood Pressure Pulse Oximetry Oxygen Delivery Fraction of Inspired Oxygen <Reymundo Lee - 07/19/23 13:51> Vital Signs - 24 hr 07/17/23 15:56 07/17/23 16:19 07/17/23 15:44 Temperature 36.6 C Pulse Rate 112 H 112 H Respiratory Rate 18 20 Blood Pressure 167/95 H 166/86 H Pulse Oximetry 98 96 Oxygen Delivery Room Air Room Air 07/17/23 16:01 07/17/23 18:57 07/17/23 19:39 Temperature Pulse Rate 111 H 114 H 117 H Respiratory Rate 20 22 H 16 Blood Pressure 162/80 H 144/67 H Pulse Oximetry 95 95 Oxygen Delivery 07/17/23 20:00 07/18/23 00:35 07/18/23 03:20 Temperature 36.7 C 36.2 C L Pulse Rate 110 H 96 91 Respiratory Rate 16 16 16 Blood Pressure 131/71 123/59 L Pulse Oximetry 92 93 Oxygen Delivery 07/18/23 03:21 07/18/23 03:30 07/18/23 04:50 Temperature 36.1 C L Pulse Rate 95 91 Respiratory Rate 16 16 Blood Pressure 138/52 L Pulse Oximetry 92 94 Oxygen Delivery Room Air 07/18/23 08:36 07/18/23 08:36 07/18/23 08:45 Temperature Pulse Rate 93 97 Respiratory Rate 16 16 Blood Pressure Pulse Oximetry 91 Oxygen Delivery Room Air 07/18/23 08:00 07/18/23 10:00 07/18/23 14:28 Temperature 36.7 C Pulse Rate 105 H 96 Respiratory Rate 22 H 16 Blood Pressure 160/64 H Pulse Oximetry 94 Oxygen Delivery Room Air 07/18/23 14:37 Temperature Pulse Rate 102 H Respiratory Rate 16 Blood Pressure Pulse Oximetry Oxygen Delivery <[facility] 07/18/23 14:59> - Exam HEENT: PERRLA, mucous membranes moist and pink [facility]/18/[facility] 16:48> Neck: supple. No: lymphadenopathy <[facility] 07/18/23 16:48> Lungs: decrease breath sounds <[facility] 07/18/23 16:48> Heart: regular rhythm, regular rate <[facility] 07/18/23 16:48> Abdomen: abdomen soft, non-distended <[facility] 07/18/23 16:48> Extremities: normal pulses. No: edema, swelling <[facility] 07/18/23 16:48> Integumentary: no abnormalities, other ( Right breast mass with erythema and circular orange crusting without discharge) [facility] 16:48> Neurological: normal speech, strength at 5/5 X4 <[facility] - 07/18/23 16:48> Psychological: mental status NL <[facility] 07/18/23 16:48> Woman Torso Head - Front/Back: 1 - Right breast mass with erythema and circular orange crusting without discharge <[facility] 07/18/23 16:48> - Lab Results Laboratory Last Values WBC 9.7 K/mm3 (4.5-10.0) 07/19/23 05:07 RBC 3.69 M/mm3 (4.2-5.4) L 07/19/23 05:07 Hgb 11.2 g/dL (12.0-15.0) L 07/19/23 05:07 Hct 34.7 % (37.0-47.0) L 07/19/23 05:07 MCV 94.0 fl (80-100) 07/19/23 05:07 MCH 30.4 pg (26-34) 07/19/23 05:07 MCHC 32.3 g/dl (32-36) 07/19/23 05:07 RDW 14.1 % (11.5-14.5) 07/19/23 05:07 Plt Count 258 k/mm3 (150-375) 07/19/23 05:07 MPV 9.1 fl (7.4-10.4) 07/19/23 05:07 Immature Gran % (Auto) 0.7 % (0-0.5) H 07/19/23 05:07 Neut % (Auto) 76.2 % (45.5-73.1) H 07/19/23 05:07 Lymph % (Auto) 11.2 % (18.3-44.2) L 07/19/23 05:07 Kleberg % (Auto) 10.9 % (2.6-8.5) H 07/19/23 05:07 Eos % (Auto) 0.8 % (0-4.4) 07/19/23 05:07 Baso % (Auto) 0.2 % (0.2-1.2) 07/19/23 05:07 Lymph # (Auto) 1.09 K/mm3 (0.9-3.2) 07/19/23 05:07 Kleberg # (Auto) 1.1 K/mm3 (0.1-0.6) H 07/19/23 05:07 Eos # (Auto) 0.1 K/mm3 (0-0.3) 07/19/23 05:07 Baso # (Auto) 0.0 K/mm3 (0.0-0.1) 07/19/23 05:07 Abs Immat Gran (auto) 0.07 K/mm3 (0.00-0.031) H 07/19/23 05:07 Absolute Neuts (auto) 7.4 K/mm3 (1.3-6.7) H 07/19/23 05:07 Absolute Nucleated RBC 0.000 K/mm3 (0.0-0.012) 07/19/23 05:07 Nucleated RBC % 0.0 % (0.0-0.2) 07/19/23 05:07 PT 14.2 Seconds (11.1-14.7) 07/17/23 15:53 INR 1.1 07/17/23 15:53 APTT 32.1 Seconds (22.3-36.8) 07/17/23 15:53 Sodium 139 mmol/L (137-145) 07/19/23 05:07 Potassium 3.5 mmol/L (3.4-5.0) 07/19/23 05:07 Chloride 110 mmol/L (98-107) H 07/19/23 05:07 Carbon Dioxide 26 mmol/L (22-30) 07/19/23 05:07 Anion Gap 3 mmol/L (4-12) L 07/19/23 05:07 BUN 9 mg/dL (7-17) 07/19/23 05:07 Creatinine 0.50 mg/dL (0.7-1.0) L 07/19/23 05:07 Estim Creat Clear Calc 46 ml/min 07/19/23 05:07 Estimated GFR > 60 (59-) 07/19/23 05:07 Glucose 92 mg/dL (65-110) 07/19/23 05:07 Calcium 8.8 mg/dL (8.4-10.2) 07/19/23 05:07 Total Bilirubin 0.6 mg/dL (0.2-1.3) 07/17/23 15:53 AST 41 U/L (14-36) H 07/17/23 15:53 ALT 39 U/L (6-35) H 07/17/23 15:53 Alkaline Phosphatase 84 U/L (38-126) 07/17/23 15:53 Troponin I < 0.012 ng/mL (0.000-0.034) 07/17/23 21:02 Total Protein 7.0 g/dL (6.3-8.2) 07/17/23 15:53 Albumin 4.0 g/dL (3.5-5.1) 07/17/23 15:53 Lipase 107 U/L (23-300) 07/17/23 15:53 Urine Color Dark yellow (Yellow) 07/17/23 16:07 Urine Appearance Turbid (Clear) H 07/17/23 16:07 Urine pH 6.0 (5.0-9.0) 07/17/23 16:07 Ur Specific Edmondson 1.024 (1.001-1.035) 07/17/23 16:07 Urine Protein 2+ mg/dL (Negative) H 07/17/23 16:07 Urine Glucose (UA) Negative mg/dL (Negative) 07/17/23 16:07 Urine Ketones Trace mg/dL (Negative) H 07/17/23 16:07 Ur Blood (Man) Negative (Negative) 07/17/23 16:07 Urine Nitrate Negative (Negative) 07/17/23 16:07 Urine Bilirubin Negative (Negative) 07/17/23 16:07 Urine Urobilinogen 1.0 mg/dL (<2.0) 07/17/23 16:07 Leukocyte Esterase Rfl 3+ JULIO/UL (Negative) H 07/17/23 16:07 Urine RBC >100 /hpf (0-2) H 07/17/23 16:07 Urine WBC >100 /hpf (0-3) H 07/17/23 16:07 Urine WBC Clumps Present /HPF (None) H 07/17/23 16:07 Ur Squamous Epith Cells Moderate /hpf (Few) 07/17/23 16:07 Urine Bacteria 4+ /hpf 07/17/23 16:07 Urine Casts 11-20 07/17/23 16:07 <Reymundo Lee M. - 07/19/23 13:51> Laboratory Last Values WBC 10.0 K/mm3 (4.5-10.0) 07/18/23 07:12 RBC 3.84 M/mm3 (4.2-5.4) L 07/18/23 07:12 Hgb 11.7 g/dL (12.0-15.0) L 07/18/23 07:12 Hct 36.4 % (37.0-47.0) L 07/18/23 07:12 MCV 94.8 fl (80-100) 07/18/23 07:12 MCH 30.5 pg (26-34) 07/18/23 07:12 MCHC 32.1 g/dl (32-36) 07/18/23 07:12 RDW 13.9 % (11.5-14.5) 07/18/23 07:12 Plt Count 244 k/mm3 (150-375) 07/18/23 07:12 MPV 9.3 fl (7.4-10.4) 07/18/23 07:12 Immature Gran % (Auto) 0.4 % (0-0.5) 07/18/23 07:12 Neut % (Auto) 75.9 % (45.5-73.1) H 07/18/23 07:12 Lymph % (Auto) 10.4 % (18.3-44.2) L 07/18/23 07:12 Kleberg % (Auto) 12.8 % (2.6-8.5) H 07/18/23 07:12 Eos % (Auto) 0.2 % (0-4.4) 07/18/23 07:12 Baso % (Auto) 0.3 % (0.2-1.2) 07/18/23 07:12 Lymph # (Auto) 1.04 K/mm3 (0.9-3.2) 07/18/23 07:12 Kleberg # (Auto) 1.3 K/mm3 (0.1-0.6) H 07/18/23 07:12 Eos # (Auto) 0.0 K/mm3 (0-0.3) 07/18/23 07:12 Baso # (Auto) 0.0 K/mm3 (0.0-0.1) 07/18/23 07:12 Abs Immat Gran (auto) 0.04 K/mm3 (0.00-0.031) H 07/18/23 07:12 Absolute Neuts (auto) 7.6 K/mm3 (1.3-6.7) H 07/18/23 07:12 Absolute Nucleated RBC 0.000 K/mm3 (0.0-0.012) 07/18/23 07:12 Nucleated RBC % 0.0 % (0.0-0.2) 07/18/23 07:12 PT 14.2 Seconds (11.1-14.7) 07/17/23 15:53 INR 1.1 07/17/23 15:53 APTT 32.1 Seconds (22.3-36.8) 07/17/23 15:53 Sodium 140 mmol/L (137-145) 07/18/23 07:12 Potassium 3.9 mmol/L (3.4-5.0) 07/18/23 07:12 Chloride 107 mmol/L (98-107) 07/18/23 07:12 Carbon Dioxide 26 mmol/L (22-30) 07/18/23 07:12 Anion Gap 7 mmol/L (4-12) 07/18/23 07:12 BUN 10 mg/dL (7-17) 07/18/23 07:12 Creatinine 0.50 mg/dL (0.7-1.0) L 07/18/23 07:12 Estim Creat Clear Calc 46 ml/min 07/18/23 07:12 Estimated GFR > 60 (59-) 07/18/23 07:12 Glucose 93 mg/dL (65-110) 07/18/23 07:12 Calcium 8.9 mg/dL (8.4-10.2) 07/18/23 07:12 Total Bilirubin 0.6 mg/dL (0.2-1.3) 07/17/23 15:53 AST 41 U/L (14-36) H 07/17/23 15:53 ALT 39 U/L (6-35) H 07/17/23 15:53 Alkaline Phosphatase 84 U/L (38-126) 07/17/23 15:53 Troponin I < 0.012 ng/mL (0.000-0.034) 07/17/23 21:02 Total Protein 7.0 g/dL (6.3-8.2) 07/17/23 15:53 Albumin 4.0 g/dL (3.5-5.1) 07/17/23 15:53 Lipase 107 U/L (23-300) 07/17/23 15:53 Urine Color Dark yellow (Yellow) 07/17/23 16:07 Urine Appearance Turbid (Clear) H 07/17/23 16:07 Urine pH 6.0 (5.0-9.0) 07/17/23 16:07 Ur Specific Edmondson 1.024 (1.001-1.035) 07/17/23 16:07 Urine Protein 2+ mg/dL (Negative) H 07/17/23 16:07 Urine Glucose (UA) Negative mg/dL (Negative) 07/17/23 16:07 Urine Ketones Trace mg/dL (Negative) H 07/17/23 16:07 Ur Blood (Man) Negative (Negative) 07/17/23 16:07 Urine Nitrate Negative (Negative) 07/17/23 16:07 Urine Bilirubin Negative (Negative) 07/17/23 16:07 Urine Urobilinogen 1.0 mg/dL (<2.0) 07/17/23 16:07 Leukocyte Esterase Rfl 3+ JULIO/UL (Negative) H 07/17/23 16:07 Urine RBC >100 /hpf (0-2) H 07/17/23 16:07 Urine WBC >100 /hpf (0-3) H 07/17/23 16:07 Urine WBC Clumps Present /HPF (None) H 07/17/23 16:07 Ur Squamous Epith Cells Moderate /hpf (Few) 07/17/23 16:07 Urine Bacteria 4+ /hpf 07/17/23 16:07 Urine Casts 11-20 07/17/23 16:07 <Xiomy Griffin - 07/18/23 14:59> Meds Home Medications Medication Instructions Recorded Confirmed Type multivitamin 1 tablet PO DAILY 07/17/23 07/17/23 History <Reymundo Lee - 07/19/23 13:51> Allergies Allergy/AdvReac Type Severity Reaction Status Date / Time No Known Allergies Allergy Unverified 08/18/15 14:44 <Reymundo Lee - 07/19/23 13:51> Results - Labs CBC & Chem 7: 07/19/23 05:07 07/19/23 05:07 <Reymundo Lee - 07/19/23 13:51> Labs: Short CBC 07/19/23 Range/Units 05:07 WBC 9.7 (4.5-10.0) K/mm3 Hgb 11.2 L (12.0-15.0) g/dL Hct 34.7 L (37.0-47.0) % Plt Count 258 (150-375) k/mm3 [facility] 07/19/23 05:07 Sodium 139 Potassium 3.5 Chloride 110 H Carbon Dioxide 26 BUN 9 Creatinine 0.50 L Glucose 92 Calcium 8.8 <Reymundo Lee - 07/19/23 13:51> Short CBC 07/17/23 07/18/23 Range/Units 15:53 07:12 WBC 12.0 H 10.0 (4.5-10.0) K/mm3 Hgb 12.7 11.7 L (12.0-15.0) g/dL Hct 39.6 36.4 L (37.0-47.0) % Plt Count 268 244 (150-375) k/mm3 [facility] 07/17/23 07/18/23 15:53 07:12 Sodium 138 140 Potassium 4.1 3.9 Chloride 103 107 Carbon Dioxide 30 26 BUN 14 10 Creatinine 0.50 L 0.50 L Glucose 143 H 93 Calcium 9.8 8.9 Cardiac Enzymes 07/17/23 07/17/23 Range/Units 15:53 21:02 Troponin I < 0.012 < 0.012 (0.000-0.034) ng/mL Liver Function 07/17/23 Range/Units 15:53 Total Bilirubin 0.6 (0.2-1.3) mg/dL AST 41 H (14-36) U/L ALT 39 H (6-35) U/L Alkaline Phosphatase 84 (38-126) U/L Albumin 4.0 (3.5-5.1) g/dL Urine 07/17/23 Range/Units 16:07 Urine Color Dark yellow (Yellow) Urine Appearance Turbid H (Clear) Urine pH 6.0 (5.0-9.0) Ur Specific Edmondson 1.024 (1.001-1.035) Urine Protein 2+ H (Negative) mg/dL Urine Glucose (UA) Negative (Negative) mg/dL <Xiomy Griffin - 07/18/23 14:59> Assessment and Plan (1) Lung mass Code(s): R91.8 - Other nonspecific abnormal finding of lung field Status: Acute (2) Breast mass, right Qualifiers: Breast mass location: lower outer quadrant Qualified Code(s): N63.13 - Unspecified lump in the right breast, lower outer quadrant Code(s): N63.10 - Unspecified lump in the right breast, unspecified quadrant Status: Acute <Reymundo Lee - 07/19/23 13:51> (1) Lung mass Code(s): R91.8 - Other nonspecific abnormal finding of lung field Status: Acute (2) Breast mass, right Qualifiers: Breast mass location: lower outer quadrant Qualified Code(s): N63.13 - Unspecified lump in the right breast, lower outer quadrant Code(s): N63.10 - Unspecified lump in the right breast, unspecified quadrant Status: Acute <Xiomy Griffin - 07/18/23 16:48> - Additional Plan Attending note. Patient seen and examined. She has a history of smoking. She also has history of COPD. CT scan chest showed infiltrate in the upper lobes could be post infection/inflammation or malignancy. On physical examination there is the right breast mass at 9:00 a.m. position noted. She had biopsy done and pathology is pending. CA 15-3 has been ordered. We will like to see her back in the office and will order PET scan. Based on the PET scan will decide about lung mass biopsy. I have answered all the questions to patient's satisfaction. Reymundo Lee MD <Reymundo Lee - 07/19/23 13:51> Valeria Deutsch is a 88 year old female with a past medical history of COPD. She has noticed a productive cough, with headache and dizziness. She was also having urinary frequency and urgency and states she was unable to pee for 3 days. Urinalysis is positive for infection. CT chest shows coarse reticulonodular infiltrates of the upper lobes anteriorly which may be postinfectious/inflammatory, although malignancy is not excluded. There are cavitary changes in the right upper lobe with associated bronchiectasis. Clinically correlate for history of malignancy. Mediastinal lymphadenopathy, likely reactive. She also has a right breast mass that has been around for about 2 years. She has gotten mammograms in the past which have been normal, but has not since this area of concern has popped up. It does not drain and sometimes causes her discomfort. She reports about a 20lb weight loss with fatigue. She denies any bleeding, fevers, chills, night sweats, or frequent infections. She is in active smoker for the last 35 years. Reports a family history of malignancy but no personal. Labs are notable for WBC 10, Hgb 11.7, Hct 36, Plt 244, Cr 0.50. Lung mass- CT chest shows coarse reticulonodular infiltrates of the upper lobes anteriorly which may be postinfectious/inflammatory, although malignancy is not excluded. There are cavitary changes in the right upper lobe with associated bronchiectasis. Clinically correlate for history of malignancy. Mediastinal lymphadenopathy, likely reactive. There is concern for lung malignancy since patient does have an active smoking history vs PNA. I suggest treating empirically with antibiotics for pneumonia and patient can follow up outpatient with a CT/PET scan as suggested by radiologist since this cannot be done inpatient. Breast mass- There is a right breast mass of concern which has erythema and circular orange crusting without drainage or pus. This is concerning for malignancy, but patients states it has been stable for the last two years. I will do order an US R breast today, which she may need biopsied. If biopsy is recommended I will order as patient is agreeable. She can follow up outpatient with biopsy results if that is warranted. Mammogram will be deferred to outpatient. I will also order CA 15-3 for evaluation. If you have any questions regarding this hematology or oncology evaluation, feel free to contact me for further assistance.?Thank you for allowing me to be a part of this patient's care. Xiomy Griffin APRN 07/18/23;[id number] <Xiomy Griffin - 07/18/23 16:48>
[2023-07-18] MEDS: ACETAMINOPHEN ELIXIR 325 MG/10.15 ML UDC 650 MG PO (20:41)
[2023-07-19] VITALS (12 sets, daily range): BP systolic 144–158; BP diastolic 62–72; PULSE 81–109; RESP 16–18; TEMP 36.1–37.1; O2SAT 88–95
[2023-07-19] MEDS: IPRATROPIUM 0.5 MG/ALBUTEROL SULFATE 2.5 MG AMPUL.NEB 3 ML INHALATION ×3 (02:16→13:26)
[2023-07-19] MEDS: SODIUM CHLORIDE 0.9% IV 1,000 ML 125 ML IV CONT ×3 (05:43→21:42)
[2023-07-19 06:01] LABS: Basophils Percent Auto 0.2 % (0.2-1.2); Eosinophils Absolute Auto 0.1 K/mm3 (0-0.3); Eosinophils Percent Auto 0.8 % (0-4.4); Hematocrit 34.7 % (37.0-47.0); Hemoglobin 11.2 g/dL (12.0-15.0); Immature Granulocyte Absolute 0.07 K/mm3 (0.00-0.031); Immature Granulocyte Percent A 0.7 % (0-0.5); Lymphocytes Absolute Auto 1.09 K/mm3 (0.9-3.2); Lymphocytes Percent Auto 11.2 % (18.3-44.2); Mean Corpuscular HGB Conc 32.3 g/dl (32-36); Mean Corpuscular Hemoglobin 30.4 pg (26-34); Mean Platelet Volume 9.1 fl (7.4-10.4); Monocytes Absolute Auto 1.1 K/mm3 (0.1-0.6); Monocytes Percent Auto 10.9 % (2.6-8.5); Neutrophils Absolute Auto 7.4 K/mm3 (1.3-6.7); Neutrophils Percent Auto 76.2 % (45.5-73.1); Platelet Count Result 258 k/mm3 (150-375); Red Blood Count 3.69 M/mm3 (4.2-5.4); Red Cell Distribution Width 14.1 % (11.5-14.5); White Blood Count 9.7 K/mm3 (4.5-10.0)
[2023-07-19 06:26] LABS: Anion Gap 3 mmol/L (4-12); Blood Urea Nitrogen 9 mg/dL (7-17); Calcium 8.8 mg/dL (8.4-10.2); Carbon Dioxide 26 mmol/L (22-30); Chloride 110 mmol/L (98-107); Estimated CRCL calculation 46 ml/min; Estimated Glomerular Filt Rate > 60; Glucose 92 mg/dL (65-110); Potassium 3.5 mmol/L (3.4-5.0); Sodium 139 mmol/L (137-145)
[2023-07-19] MEDS: MULTIVITAMINS THERAPEUTIC TAB (*BKC) 1 TABLET PO (08:27)
--- NOTE | 2023-07-19 12:27 | PCSTNOTE ---
Order for BSSE received and initiated. Patient and nurse report she has sensation of food staying in her throat and she sometimes vomits. MBSS order requested. Recommend pureed diet until MBSS can be completed. MD states tomorrow is ok.
--- NOTE | 2023-07-19 12:51 | P.CDI_ITS ---
CDI Query Clarification Request BMI 16.5 Nutritional Diagnostic Statement Severe protein calorie malnutrition as related to inadequate protein-energy intake with increased protein-energy needs in setting of chronic disease of condition (lung mass) as evidenced by minimal oral intake for > 1-2 months; sign ificant weight loss of 27% (34 lbs) in 4 months: moderate subcutaneous fat loss (orbital fat pads) and severe muscle wasting calf region (gastrocnemius muscle). Please refer to the comprehensive nutrition assessment for further information. Please clarify severity of protein calorie malnutrition if known: * Mild * Moderate * Severe * Other/Unspecified
--- NOTE | 2023-07-19 13:13 | PC.NURSE ---
On 07/19/23, the student, [Marivel Lau], provided care and completed [facility] documentation on this patient. I have reviewed the student's documentation and agree with the findings.
--- NOTE | 2023-07-19 14:20 | PC.NURSE ---
On 07/19/23, the student, [Amaya Nagy], provided care and completed [facility] documentation on this patient. I have reviewed the student's documentation and agree with the findings.
--- NOTE | 2023-07-19 14:24 | P.PNIM_ITS ---
Progress Note: A&P Assessment and Plan (1) Lung mass: Code(s): R91.8 - Other nonspecific abnormal finding of lung field Status: Acute Assessment and Plan: * CT showed coarse reticulonodular infiltrates of the upper lobes anteriorly which may be postinfectious/inflammatory, although malignancy is not excluded. There are cavitary changes in the right upper lobe with associated bronchiectasis. Consider correlation with pet/CT scan or short-term follow-up CT in 3 months. Clinically correlate for history of malignancy. * Oncology following - likely outpatient PET scan (2) Weight loss: Code(s): R63.4 - Abnormal weight loss Status: Acute Assessment and Plan: * patient reports 30+ lb weight loss in past 3 months. * equities analyst consulted (3) UTI (urinary tract infection): Code(s): N39.0 - Urinary tract infection, site not specified Status: Acute Assessment and Plan: * abnormal UA on admission * Rocephin * UA culture pending (4) Breast mass, right: Qualifiers: Breast mass location: lower outer quadrant Qualified Code(s): N63.13 - Unspecified lump in the right breast, lower outer quadrant Code(s): N63.10 - Unspecified lump in the right breast, unspecified quadrant Status: Acute Assessment and Plan: * CT showed heterogeneously enhancing right breast mass measuring up to 4 cm which abuts the skin surface. Recommend correlation with diagnostic mammogram and ultrasound. * Oncology following - biopsy of breast mass taken today Subjective Date/time seen: 07/19/23 14:24 Interval history: Patient is lying in bed on exam this afternoon after her biopsy. She reports soreness to her breast, but denies chest pain, SOB or other complaints. Speech evaluation recommends modified barium swallow tomorrow due to change in ability to swallow liquids. Review of Systems Review of Systems: All systems reviewed & are unremarkable except as noted in HPI and below Exam Narrative: GENERAL: Well-appearing, thin and in no acute distress. HEAD: Normocephalic, atraumatic. EYES: PERRLA and EOMI. ENT: Mucous membranes moist. NECK: Supple. CHEST: Lungs clear to auscultation. No respiratory distress. HEART: RRR. No murmur heard. Normal peripheral pulses. ABDOMEN: Soft, nontender, nondistended, normal active bowel sounds. EXTREMITIES: Normal range of motion. No edema. SKIN: Warm, dry, no rash. NEURO: Alert and oriented x3. No focal deficits. PSYCH: Normal mood and affect. Objective Data Vital Signs Vital Signs: Vital Signs - 24 hr 07/18/23 14:28 07/18/23 14:37 07/18/23 16:00 Temperature 99.0 F Pulse Rate 96 102 H 102 H Respiratory Rate 16 16 24 H Blood Pressure 141/66 H Pulse Oximetry 92 Oxygen Delivery Fraction of Inspired Oxygen 07/18/23 20:17 07/18/23 20:00 07/18/23 20:00 Temperature 98.8 F Pulse Rate 109 H 113 H Respiratory Rate 18 16 Blood Pressure 143/67 H Pulse Oximetry 94 Oxygen Delivery Room Air Fraction of Inspired Oxygen 07/19/23 00:35 07/18/23 20:15 07/19/23 02:18 Temperature 97.9 F Pulse Rate 81 86 Respiratory Rate 16 18 Blood Pressure 144/70 H Pulse Oximetry 93 92 Oxygen Delivery Room Air Fraction of Inspired Oxygen 07/18/23 20:27 07/19/23 07:44 07/19/23 07:44 Temperature Pulse Rate 111 H 91 Respiratory Rate 18 18 Blood Pressure Pulse Oximetry 92 Oxygen Delivery Room Air Fraction of Inspired Oxygen 21 07/19/23 05:00 07/19/23 08:00 07/19/23 08:10 Temperature 97.5 F L 97 F L Pulse Rate 87 106 H Respiratory Rate 16 18 Blood Pressure 151/72 H 151/66 H Pulse Oximetry 93 94 Oxygen Delivery Room Air Fraction of Inspired Oxygen 07/19/23 12:28 07/19/23 13:26 07/19/23 07:55 Temperature 98.7 F Pulse Rate 99 104 H 88 Respiratory Rate 16 18 18 Blood Pressure 146/63 H Pulse Oximetry 95 Oxygen Delivery Fraction of Inspired Oxygen 07/19/23 13:35 Temperature Pulse Rate 100 Respiratory Rate 18 Blood Pressure Pulse Oximetry Oxygen Delivery Fraction of Inspired Oxygen Intake/Output Intake/Output: Intake & Output 07/16/23 07/17/23 07/18/23 07/19/23 23:59 23:59 23:59 23:59 Intake Total 2532.9 2493.8 Output Total 50 Balance -50 2532.9 2493.8 Meds/Results Medications: Active Medications Generic Name Dose Route Start Last Admin Trade Name Freq PRN Reason Stop Dose Admin Acetaminophen 650 mg 07/18/23 19:57 07/18/23 20:41 Acetaminophen Elixir 325 Mg/10.15 Ml Udc PO 650 mg Q4H PRN Administration Mild Pain (1-3) or Fever Calcium Carbonate 200 mg 07/18/23 09:45 Calcium Carbonate (Tums) 500 Mg (200 Mg Elemental) PO Q6H PRN Indigestion Sodium Chloride 1,000 mls @ 125 mls/hr 07/17/23 18:45 07/19/23 12:28 Normal Saline Iv IV CONT 125 mls/hr .Q8H GLEN Administration Ceftriaxone Sodium 1 gm in 50 mls @ 100 mls/hr 07/18/23 13:00 07/19/23 12:58 Rocephin 1 Gm/Ns 50 Ml IVPB Infused Q24H GLEN Infusion Morphine Sulfate 2 mg 07/17/23 18:36 Morphine Sulfate (*Crx) 2 Mg/Ml Inj IV PUSH Q2H PRN Pain Rated 7-10 Multivitamins Therapeutic 1 tablet 07/18/23 09:00 07/19/23 08:27 Multivitamins Therapeutic Tab (*Bkc) PO 1 tablet DAILY GLEN Administration Ondansetron HCl 4 mg 07/17/23 18:36 Ondansetron Inj 4 Mg/2 Ml Vial IV PUSH Q4H PRN Nausea Radiology Results: ITS Impressions Chest X-Ray 07/17/23 16:02 Impression: 1: Bilateral interstitial infiltrates which may represent mild edema or pneumonia. 2: Emphysema. Chest/Abdomen/Pelvis CT 07/17/23 17:19 IMPRESSION: 1. Coarse reticulonodular infiltrates of the upper lobes anteriorly which may be postinfectious/inflammatory, although malignancy is not excluded. There are cavitary changes in the right upper lobe with associated bronchiectasis. Consider correlation with pet/CT scan or short-term follow-up CT in 3 months. Clinically correlate for history of malignancy. 2: Mediastinal lymphadenopathy, likely reactive. 3: Emphysema. 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 ADDENDUM: 07/19/23 [id number] Addendum: There is an heterogeneously enhancing right breast mass measuring up to 4 cm which abuts the skin surface. Recommend correlation with diagnostic mammogram and ultrasound. Head CT 07/17/23 17:19 IMPRESSION: 1. Normal aging brain. Breast Core Needle Biopsy 07/19/23 12:27 IMPRESSION: Successful ultrasound guided biopsy of right 9:00 breast mass with biopsy marker placement. Please refer to pathology report for histologic analysis. Mammogram Diagnostic 07/19/23 12:27 IMPRESSION: Successful ultrasound guided biopsy of right 9:00 breast mass with biopsy marker placement. Please refer to pathology report for histologic analysis. Labs Labs: Laboratory Results - last 24 hr 07/19/23 05:07 WBC 9.7 RBC 3.69 L Hgb 11.2 L Hct 34.7 L MCV 94.0 MCH 30.4 MCHC 32.3 RDW 14.1 Plt Count 258 MPV 9.1 Immature Gran % (Auto) 0.7 H Neut % (Auto) 76.2 H Lymph % (Auto) 11.2 L [place] % (Auto) 10.9 H Eos % (Auto) 0.8 Baso % (Auto) 0.2 Lymph # (Auto) 1.09 [place] # (Auto) 1.1 H Eos # (Auto) 0.1 Baso # (Auto) 0.0 Abs Immat Gran (auto) 0.07 H Absolute Neuts (auto) 7.4 H Absolute Nucleated RBC 0.000 Nucleated RBC % 0.0 Sodium 139 Potassium 3.5 Chloride 110 H Carbon Dioxide 26 Anion Gap 3 L BUN 9 Creatinine 0.50 L Estim Creat Clear Calc 46 Estimated GFR > 60 Glucose 92 Calcium 8.8 Quality VTE Prophylaxis VTE prophylaxis: mechanical ordered
[2023-07-19] MEDS: MORPHINE SULFATE (*CRX) 2 MG/ML INJ IV PUSH (17:15)
[2023-07-19] MEDS: ONDANSETRON INJ 4 MG/2 ML VIAL IV PUSH (17:15)
[2023-07-20] VITALS (8 sets, daily range): BP systolic 102–151; BP diastolic 52–74; PULSE 90–109; RESP 16–18; TEMP 36.4–36.9; O2SAT 94–97
[2023-07-20] MEDS: ONDANSETRON INJ 4 MG/2 ML VIAL IV PUSH (02:12)
[2023-07-20 05:10] LABS: Basophils Absolute Auto 0.1 K/mm3 (0.0-0.1); Basophils Percent Auto 0.6 % (0.2-1.2); Eosinophils Absolute Auto 0.1 K/mm3 (0-0.3); Eosinophils Percent Auto 0.5 % (0-4.4); Hematocrit 33.4 % (37.0-47.0); Hemoglobin 10.6 g/dL (12.0-15.0); Immature Granulocyte Absolute 0.55 K/mm3 (0.00-0.031); Lymphocytes Absolute Auto 0.75 K/mm3 (0.9-3.2); Lymphocytes Percent Auto 6.8 % (18.3-44.2); Mean Corpuscular HGB Conc 31.7 g/dl (32-36); Mean Corpuscular Hemoglobin 30.5 pg (26-34); Mean Platelet Volume 9.1 fl (7.4-10.4); Monocytes Absolute Auto 0.8 K/mm3 (0.1-0.6); Monocytes Percent Auto 7.2 % (2.6-8.5); Neutrophils Absolute Auto 8.9 K/mm3 (1.3-6.7); Neutrophils Percent Auto 79.9 % (45.5-73.1); Platelet Count Result 255 k/mm3 (150-375); Red Blood Count 3.48 M/mm3 (4.2-5.4); Red Cell Distribution Width 14.2 % (11.5-14.5); White Blood Count 11.1 K/mm3 (4.5-10.0)
[2023-07-20 05:28] LABS: Anion Gap 1 mmol/L (4-12); Blood Urea Nitrogen 9 mg/dL (7-17); Calcium 8.2 mg/dL (8.4-10.2); Carbon Dioxide 27 mmol/L (22-30); Chloride 107 mmol/L (98-107); Estimated CRCL calculation 57 ml/min; Estimated Glomerular Filt Rate > 60; Glucose 105 mg/dL (65-110); Potassium 4.1 mmol/L (3.4-5.0); Sodium 135 mmol/L (137-145)
[2023-07-20] MEDS: ACETAMINOPHEN ELIXIR 325 MG/10.15 ML UDC 650 MG PO ×2 (06:29→21:21)
--- NOTE | 2023-07-20 09:40 | PCSTNOTE ---
Please refer to the Modified Barium Swallow Evaluation in the EMR.
--- NOTE | 2023-07-20 10:06 | P.PNIM_ITS ---
Progress Note: A&P Assessment and Plan (1) Lung mass: Code(s): R91.8 - Other nonspecific abnormal finding of lung field Status: Acute Assessment and Plan: * CT showed coarse reticulonodular infiltrates of the upper lobes anteriorly which may be postinfectious/inflammatory, although malignancy is not excluded. There are cavitary changes in the right upper lobe with associated bronchiectasis. Consider correlation with pet/CT scan or short-term follow-up CT in 3 months. Clinically correlate for history of malignancy. * Oncology following - likely outpatient PET scan (2) Weight loss: Code(s): R63.4 - Abnormal weight loss Status: Acute Assessment and Plan: * patient reports 30+ lb weight loss in past 3 months. * mis specialist consulted (3) UTI (urinary tract infection): Code(s): N39.0 - Urinary tract infection, site not specified Status: Acute Assessment and Plan: * abnormal UA on admission * continue Rocephin * UA culture pending (4) Breast mass, right: Qualifiers: Breast mass location: lower outer quadrant Qualified Code(s): N63.13 - Unspecified lump in the right breast, lower outer quadrant Code(s): N63.10 - Unspecified lump in the right breast, unspecified quadrant Status: Acute Assessment and Plan: * CT showed heterogeneously enhancing right breast mass measuring up to 4 cm which abuts the skin surface. Recommend correlation with diagnostic mammogram and ultrasound. * Oncology following - biopsy of breast mass taken today Subjective Date/time seen: 07/20/23 10:06 Interval history: -patient resting in bed in no acute distress, reports decreased appetite, and constipation Review of Systems Review of Systems: All systems reviewed & are unremarkable except as noted in HPI and below Exam Narrative: GENERAL: Well-appearing, thin and in no acute distress. HEAD: Normocephalic, atraumatic. EYES: PERRLA and EOMI. ENT: Mucous membranes moist. NECK: Supple. CHEST: Lungs clear to auscultation. No respiratory distress. HEART: RRR. No murmur heard. Normal peripheral pulses. ABDOMEN: Soft, nontender, nondistended, normal active bowel sounds. EXTREMITIES: Normal range of motion. No edema. SKIN: Warm, dry, no rash. NEURO: Alert and oriented x3. No focal deficits. PSYCH: Normal mood and affect. Objective Data Vital Signs Vital Signs: Vital Signs - 24 hr 07/19/23 12:28 07/19/23 13:26 07/19/23 13:35 Temperature 98.7 F Pulse Rate 99 104 H 100 Respiratory Rate 16 18 18 Blood Pressure 146/63 H Pulse Oximetry 95 Oxygen Delivery 07/19/23 16:55 07/19/23 20:00 07/19/23 20:55 Temperature 98.1 F 97.4 F L Pulse Rate 104 H 109 H Respiratory Rate 17 16 Blood Pressure 145/62 H 158/68 H Pulse Oximetry 94 88 L 95 Oxygen Delivery Room Air 07/20/23 00:45 07/20/23 05:35 07/20/23 08:06 Temperature 97.6 F 97.7 F 97.6 F Pulse Rate 107 H 109 H 93 Respiratory Rate 16 16 18 Blood Pressure 151/66 H 148/68 H 102/74 Pulse Oximetry 95 94 96 Oxygen Delivery Intake/Output Intake/Output: Intake & Output 07/17/23 07/18/23 07/19/23 07/20/23 23:59 23:59 23:59 23:59 Intake Total 2532.9 4083.8 600 Output Total 50 Balance -50 2532.9 4083.8 600 Meds/Results Medications: Active Medications Generic Name Dose Route Start Last Admin Trade Name Freq PRN Reason Stop Dose Admin Acetaminophen 650 mg 07/18/23 19:57 07/20/23 06:29 Acetaminophen Elixir 325 Mg/10.15 Ml Udc PO 650 mg Q4H PRN Administration Mild Pain (1-3) or Fever Calcium Carbonate 200 mg 07/18/23 09:45 Calcium Carbonate (Tums) 500 Mg (200 Mg Elemental) PO Q6H PRN Indigestion Ceftriaxone Sodium 1 gm in 50 mls @ 100 mls/hr 07/18/23 13:00 07/19/23 12:58 Rocephin 1 Gm/Ns 50 Ml IVPB Infused Q24H GLEN Infusion Morphine Sulfate 2 mg 07/17/23 18:36 07/19/23 17:15 Morphine Sulfate (*Crx) 2 Mg/Ml Inj IV PUSH 2 mg Q2H PRN Administration Pain Rated 7-10 Multivitamins Therapeutic 1 tablet 07/18/23 09:00 07/20/23 09:02 Multivitamins Therapeutic Tab (*Bkc) PO Not Given DAILY [facility] Ondansetron HCl 4 mg 07/17/23 18:36 07/20/23 02:12 Ondansetron Inj 4 Mg/2 Ml Vial IV PUSH 4 mg Q4H PRN Administration Nausea Radiology Results: ITS Impressions Chest X-Ray 07/17/23 16:02 Impression: 1: Bilateral interstitial infiltrates which may represent mild edema or pneumonia. 2: Emphysema. Chest/Abdomen/Pelvis CT 07/17/23 17:19 IMPRESSION: 1. Coarse reticulonodular infiltrates of the upper lobes anteriorly which may be postinfectious/inflammatory, although malignancy is not excluded. There are cavitary changes in the right upper lobe with associated bronchiectasis. Consider correlation with pet/CT scan or short-term follow-up CT in 3 months. Clinically correlate for history of malignancy. 2: Mediastinal lymphadenopathy, likely reactive. 3: Emphysema. 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 ADDENDUM: 07/19/23 [id number] Addendum: There is an heterogeneously enhancing right breast mass measuring up to 4 cm which abuts the skin surface. Recommend correlation with diagnostic mammogram and ultrasound. Head CT 07/17/23 17:19 IMPRESSION: 1. Normal aging brain. Breast Core Needle Biopsy 07/19/23 12:27 IMPRESSION: Successful ultrasound guided biopsy of right 9:00 breast mass with biopsy marker placement. Please refer to pathology report for histologic analysis. Mammogram Diagnostic 07/19/23 12:27 IMPRESSION: Successful ultrasound guided biopsy of right 9:00 breast mass with biopsy marker placement. Please refer to pathology report for histologic analysis. Modified Barium Swallow 07/20/23 09:11 IMPRESSION: 1. Normal modified barium swallow. 2. Please refer to the speech therapy report for recommendations. Labs Labs: Laboratory Results - last 24 hr 07/20/23 04:15 WBC 11.1 H RBC 3.48 L Hgb 10.6 L Hct 33.4 L MCV 96.0 MCH 30.5 MCHC 31.7 L RDW 14.2 Plt Count 255 MPV 9.1 Immature Gran % (Auto) 5.0 H Neut % (Auto) 79.9 H Lymph % (Auto) 6.8 L [place] % (Auto) 7.2 Eos % (Auto) 0.5 Baso % (Auto) 0.6 Lymph # (Auto) 0.75 L [place] # (Auto) 0.8 H Eos # (Auto) 0.1 Baso # (Auto) 0.1 Abs Immat Gran (auto) 0.55 H Absolute Neuts (auto) 8.9 H Absolute Nucleated RBC 0.000 Nucleated RBC % 0.0 Sodium 135 L Potassium 4.1 Chloride 107 Carbon Dioxide 27 Anion Gap 1 L BUN 9 Creatinine 0.40 L Estim Creat Clear Calc 57 Estimated GFR > 60 Glucose 105 Calcium 8.2 L
[2023-07-20] MEDS: BISACODYL 10 MG SUPPOSITORY RECTAL (11:38)
[2023-07-20] MEDS: CALCIUM CARBONATE (TUMS) 500 MG (200 MG ELEMENTAL) PO (11:43)
[2023-07-21] VITALS (10 sets, daily range): BP systolic 123–156; BP diastolic 51–67; PULSE 84–92; RESP 16–30; TEMP 36.3–37; O2SAT 82–98
[2023-07-21] MEDS: MORPHINE SULFATE (*CRX) 2 MG/ML INJ IV PUSH (04:45)
--- NOTE | 2023-07-21 09:00 | PC.NURSE ---
pt reporting lack of fine motor strength in left hand, no other sns or noted, neuro check other than condenser cleaner of hand intact, pt states this is new but vague response as to when this may have began or if she had this yesterday, will continue to monitor
[2023-07-21] MEDS: MULTIVITAMINS THERAPEUTIC TAB (*BKC) 1 TABLET PO (10:18)
[2023-07-21] MEDS: polyethylene glycoL 3350 17 GM POWD.PACK PO (10:18)
--- NOTE | 2023-07-21 13:56 | P.PNIM_ITS ---
Progress Note: A&P Assessment and Plan (1) Lung mass: Code(s): R91.8 - Other nonspecific abnormal finding of lung field Status: Acute Assessment and Plan: * CT showed coarse reticulonodular infiltrates of the upper lobes anteriorly which may be postinfectious/inflammatory, although malignancy is not excluded. There are cavitary changes in the right upper lobe with associated bronchiectasis. Consider correlation with pet/CT scan or short-term follow-up CT in 3 months. Clinically correlate for history of malignancy. * Oncology following - likely outpatient PET scan (2) Weight loss: Code(s): R63.4 - Abnormal weight loss Status: Acute Assessment and Plan: * patient reports 30+ lb weight loss in past 3 months. * customer counter representative consulted (3) UTI (urinary tract infection): Code(s): N39.0 - Urinary tract infection, site not specified Status: Acute Assessment and Plan: * abnormal UA on admission * continue Rocephin * UA culture pending (4) Breast mass, right: Qualifiers: Breast mass location: lower outer quadrant Qualified Code(s): N63.13 - Unspecified lump in the right breast, lower outer quadrant Code(s): N63.10 - Unspecified lump in the right breast, unspecified quadrant Status: Acute Assessment and Plan: * CT showed heterogeneously enhancing right breast mass measuring up to 4 cm which abuts the skin surface. Recommend correlation with diagnostic mammogram and ultrasound. * Oncology following - biopsy of breast mass taken today (5) Left-sided weakness: Code(s): R53.1 - Weakness Status: Acute Assessment and Plan: -initiate fall precaution -check blood glucose q.4 -check head CT -check Brain MRI Subjective Date/time seen: 07/21/23 13:57 Interval history: -patient resting in bed in no acute distress, ill appearing, denies any overnight events. reports ongoing left side weakness, and continued loss of appetite. She denies any chest pain nausea vomiting fever chills. Review of Systems Review of Systems: All systems reviewed & are unremarkable except as noted in HPI and below Constitutional: Constitutional: Reports weight loss Exam Narrative: GENERAL: ill appearing, thin and in no acute distress. HEAD: Normocephalic, atraumatic. EYES: PERRLA and EOMI. ENT: Mucous membranes moist. NECK: Supple. CHEST: Barrel chest, diminished lung sounds. No respiratory distress. HEART: RRR. No murmur heard. Normal peripheral pulses. ABDOMEN: Soft, nontender, nondistended, normal active bowel sounds. EXTREMITIES: Normal range of motion. No edema. SKIN: Warm, dry, no rash. NEURO: Alert and oriented x3. No focal deficits. PSYCH: Normal mood and affect. Objective Data Vital Signs Vital Signs: Vital Signs - 24 hr 07/20/23 18:44 07/20/23 20:00 07/20/23 22:19 Temperature 98.1 F 98.4 F Pulse Rate 99 92 Respiratory Rate 18 18 Blood Pressure 148/52 H 149/61 H Pulse Oximetry 96 96 97 Oxygen Delivery Nasal Cannula Oxygen Flow Rate 2 Fraction of Inspired Oxygen 07/21/23 06:00 07/21/23 09:11 07/21/23 09:28 Temperature 97.7 F Pulse Rate 84 Respiratory Rate 18 Blood Pressure 141/54 H Pulse Oximetry 97 95 82 L Oxygen Delivery Nasal Cannula Room Air Oxygen Flow Rate 2 Fraction of Inspired Oxygen 07/21/23 09:30 07/21/23 09:32 07/21/23 10:31 Temperature 97.7 F Pulse Rate 87 Respiratory Rate 30 H Blood Pressure 132/51 L Pulse Oximetry 86 L 92 93 Oxygen Delivery Nasal Cannula Nasal Cannula Oxygen Flow Rate 1 2 Fraction of Inspired Oxygen 07/21/23 08:45 Temperature Pulse Rate 84 Respiratory Rate 24 H Blood Pressure Pulse Oximetry 97 Oxygen Delivery Nasal Cannula Oxygen Flow Rate 2 Fraction of Inspired Oxygen 28 Intake/Output Intake/Output: Intake & Output 07/18/23 07/19/23 07/20/23 07/21/23 23:59 23:59 23:59 23:59 Intake Total 2532.9 4083.8 1250 740 Output Total 150 Balance 2532.9 4083.8 1250 590 Meds/Results Medications: Active Medications Generic Name Dose Route Start Last Admin Trade Name Freq PRN Reason Stop Dose Admin Acetaminophen 650 mg 07/18/23 19:57 07/20/23 21:21 Acetaminophen Elixir 325 Mg/10.15 Ml Udc PO 650 mg Q4H PRN Administration Mild Pain (1-3) or Fever Bisacodyl 10 mg 07/20/23 10:09 07/20/23 11:38 Bisacodyl 10 Mg Suppository RECTAL 10 mg QAM PRN Administration Constipation Calcium Carbonate 200 mg 07/18/23 09:45 07/20/23 11:43 Calcium Carbonate (Tums) 500 Mg (200 Mg Elemental) PO 200 mg Q6H PRN Administration Indigestion Ceftriaxone Sodium 1 gm in 50 mls @ 100 mls/hr 07/18/23 13:00 07/21/23 13:20 Rocephin 1 Gm/Ns 50 Ml IVPB 100 mls/hr Q24H GLEN Administration Morphine Sulfate 2 mg 07/17/23 18:36 07/21/23 04:45 Morphine Sulfate (*Crx) 2 Mg/Ml Inj IV PUSH 2 mg Q2H PRN Administration Pain Rated 7-10 Multivitamins Therapeutic 1 tablet 07/18/23 09:00 07/21/23 10:18 Multivitamins Therapeutic Tab (*Bkc) PO 1 tablet DAILY GLEN Administration Ondansetron HCl 4 mg 07/17/23 18:36 07/20/23 02:12 Ondansetron Inj 4 Mg/2 Ml Vial IV PUSH 4 mg Q4H PRN Administration Nausea Polyethylene Glycol 17 gm 07/20/23 10:09 07/21/23 10:18 Polyethylene Glycol 3350 17 Gm Powd.Pack PO 17 gm QAM PRN Administration Constipation Radiology Results: ITS Impressions Chest X-Ray 07/17/23 16:02 Impression: 1: Bilateral interstitial infiltrates which may represent mild edema or pneumonia. 2: Emphysema. Chest/Abdomen/Pelvis CT 07/17/23 17:19 IMPRESSION: 1. Coarse reticulonodular infiltrates of the upper lobes anteriorly which may be postinfectious/inflammatory, although malignancy is not excluded. There are cavitary changes in the right upper lobe with associated bronchiectasis. Consider correlation with pet/CT scan or short-term follow-up CT in 3 months. Clinically correlate for history of malignancy. 2: Mediastinal lymphadenopathy, likely reactive. 3: Emphysema. 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 ADDENDUM: 07/19/23 [id number] Addendum: There is an heterogeneously enhancing right breast mass measuring up to 4 cm which abuts the skin surface. Recommend correlation with diagnostic mammogram and ultrasound. Head CT 07/17/23 17:19 IMPRESSION: 1. Normal aging brain. Breast Core Needle Biopsy 07/19/23 12:27 IMPRESSION: Successful ultrasound guided biopsy of right 9:00 breast mass with biopsy marker placement. Please refer to pathology report for histologic analysis. Mammogram Diagnostic 07/19/23 12:27 IMPRESSION: Successful ultrasound guided biopsy of right 9:00 breast mass with biopsy marker placement. Please refer to pathology report for histologic analysis. Modified Barium Swallow 07/20/23 09:11 IMPRESSION: 1. Normal modified barium swallow. 2. Please refer to the speech therapy report for recommendations. Quality VTE Prophylaxis VTE prophylaxis: mechanical ordered
[2023-07-21 14:20] LABS: Glucose Point of Care 181 mg/dl (65-105)
[2023-07-22] VITALS (8 sets, daily range): BP systolic 128–166; BP diastolic 50–69; PULSE 74–97; RESP 16–18; TEMP 36.1–36.8; O2SAT 92–99
[2023-07-22] MEDS: MORPHINE SULFATE (*CRX) 2 MG/ML INJ IV PUSH (02:25)
[2023-07-22 05:13] LABS: Basophils Percent Auto 0.5 % (0.2-1.2); Eosinophils Absolute Auto 0.2 K/mm3 (0-0.3); Eosinophils Percent Auto 2.2 % (0-4.4); Hematocrit 34.9 % (37.0-47.0); Immature Granulocyte Absolute 0.06 K/mm3 (0.00-0.031); Immature Granulocyte Percent A 0.8 % (0-0.5); Lymphocytes Absolute Auto 0.98 K/mm3 (0.9-3.2); Lymphocytes Percent Auto 12.6 % (18.3-44.2); Mean Corpuscular HGB Conc 31.5 g/dl (32-36); Mean Corpuscular Hemoglobin 30.1 pg (26-34); Mean Corpuscular Volume 95.6 fl (80-100); Mean Platelet Volume 8.8 fl (7.4-10.4); Monocytes Absolute Auto 0.9 K/mm3 (0.1-0.6); Monocytes Percent Auto 11.7 % (2.6-8.5); Neutrophils Absolute Auto 5.6 K/mm3 (1.3-6.7); Neutrophils Percent Auto 72.2 % (45.5-73.1); Platelet Count Result 295 k/mm3 (150-375); Red Blood Count 3.65 M/mm3 (4.2-5.4); Red Cell Distribution Width 13.7 % (11.5-14.5); White Blood Count 7.8 K/mm3 (4.5-10.0)
[2023-07-22 05:23] LABS: Alanine Aminotransferase 25 U/L (6-35); Albumin Level 2.9 g/dL (3.5-5.1); Alkaline Phosphatase 66 U/L (38-126); Anion Gap 0 mmol/L (4-12); Aspartate Amino Transferase 22 U/L (14-36); Bilirubin,Total 0.4 mg/dL (0.2-1.3); Blood Urea Nitrogen 9 mg/dL (7-17); Calcium 8.4 mg/dL (8.4-10.2); Carbon Dioxide 36 mmol/L (22-30); Chloride 100 mmol/L (98-107); Estimated CRCL calculation 46 ml/min; Estimated Glomerular Filt Rate > 60; Glucose 88 mg/dL (65-110); Potassium 3.6 mmol/L (3.4-5.0); Sodium 136 mmol/L (137-145)
[2023-07-22] MEDS: MULTIVITAMINS THERAPEUTIC TAB (*BKC) 1 TABLET PO (07:46)
--- NOTE | 2023-07-22 11:15 | WPDNEURCNPN ---
Assessment and Plan Assessment and plan (1) Left-sided weakness: Code(s): R53.1 - Weakness Status: Acute (2) Stroke: Code(s): I63.9 - Cerebral infarction, unspecified Status: Acute (3) Carotid stenosis, right: Code(s): I65.21 - Occlusion and stenosis of right carotid artery Status: Acute Plan Valeria Deutsch is a 88 year old female currently admitted for evaluation of lung and breast mass, as well as UTI. During admission she was noted to have L sided weakness. Her last known well is unknown. CT head showed acute vs subacute infarct in the R frontoparietal region. CTA brain/carotid showed 62% stenosis of the proximal R IC. - MRI brain pending - Start Aspirin 81mg daily - Will need vascular referral given >50% stenosis on the same side of the stroke - Start Plavix 75mg daily for at least 3 weeks, (until seen by vascular) - Check LDL, HgbA1c. Goal LDL is less than 70. May need statin depending on level - Surface echocardiogram with bubble study Consult date: 07/22/23 Reason for consult: Stroke HPI: Valeria Deutsch is a 88 year old female currently admitted for evaluation of lung and breast mass, as well as UTI. At some point yesterday, there were concerns raised for L sided weakness. Patient's last known well is not clear based on the nursing staff. She had a CT head that showed acute vs subacute infarct in the R frontoparietal region. CTA brain/carotid showed 62% stenosis of the proximal R ICA. MRI brain has not been done yet. Patient reports that she had trouble grasping her water bottle yesterday morning after she woke up. This is when she first noticed her symptoms. She also noticed intermittent L sided numbness which has continued since then. She smokes 6 cigarettes per day, but plans on stopping. Review of Systems Review of Systems: All systems reviewed & are unremarkable except as noted in HPI and below PMFSH Social History Social History Smoking packs per day: 0.5 Smoking cigarettes per day: 10.0 Smoking status: Current every day smoker Tobacco type: cigarettes Second hand tobacco smoke exposure: Yes Alcohol intake: never Substance use: never Substance use type: does not use Do You Feel Safe in your Home?: Yes Lack of Transportation: No Lack of Food: Never True Current Housing: I Have Housing Concerned About Future Housing: No Difficulty Paying Gas/Electric Bills: No Difficulty Paying for Meds: No Currently Unemployed: No Education: High School Diploma/GED Difficulty w/ Childcare or Family Care: No Spiritual care concerns: No Meds Home Medications and Allergies Home Medications Medication Instructions Recorded Confirmed Type multivitamin 1 tablet PO DAILY 07/17/23 07/17/23 History Allergies Allergy/AdvReac Type Severity Reaction Status Date / Time No Known Allergies Allergy Unverified 08/18/15 14:44 Vital Signs Vital Signs - 24 hr 07/21/23 13:50 07/21/23 17:24 07/21/23 20:00 Temperature 37.0 C 36.8 C 36.3 C L Pulse Rate 92 87 87 Respiratory Rate 30 H 30 H 16 Blood Pressure 123/53 L 150/62 H 156/67 H Pulse Oximetry 97 98 98 Oxygen Delivery Oxygen Flow Rate 07/21/23 20:00 07/22/23 00:00 07/22/23 04:00 Temperature 36.2 C L 36.2 C L Pulse Rate 86 79 Respiratory Rate 16 16 Blood Pressure 151/69 H 155/61 H Pulse Oximetry 98 97 96 Oxygen Delivery Nasal Cannula Oxygen Flow Rate 2 07/22/23 08:00 07/22/23 08:24 07/22/23 09:31 Temperature 36.7 C Pulse Rate 74 Respiratory Rate 16 Blood Pressure 153/62 H Pulse Oximetry 96 99 Oxygen Delivery Nasal Cannula Nasal Cannula Oxygen Flow Rate 2 2 Exam Const: General: comfortable and no acute distress HENMT: Mouth: Yes moist mucous membranes Eyes: Pupils: Equal, round and reactive pupils present EOM: EOMs intact bilaterally Resp: Effort & Inspection: normal respiratory effort Skin: General skin exam: normal color Neuro: Other: AOx3, Pupils equal and reactive bilaterally, EOMI, face symmetric, facial sensation intact, tongue protrudes midline, strength is 5/5 in RUE, 4+/5 in LUE, 4/5 in bilateral lower extremities. Sensation is symmetric in the face and upper extremities, but reduced in the LLE. FNF without dysmetria, but slower on the left. Language comprehension and fluency intact. Gait deferred. Extrem: General: normal to inspection Psych: Mental Status: mental status grossly normal Affect: normal affect Results Labs 07/22/23 04:40 07/22/23 04:40 Labs: Short CBC 07/22/23 Range/Units 04:40 WBC 7.8 (4.5-10.0) K/mm3 Hgb 11.0 L (12.0-15.0) g/dL Hct 34.9 L (37.0-47.0) % Plt Count 295 (150-375) k/mm3 BMP 07/22/23 04:40 Sodium 136 L Potassium 3.6 Chloride 100 Carbon Dioxide 36 H BUN 9 Creatinine 0.50 L Glucose 88 Calcium 8.4 Liver Function 07/22/23 Range/Units 04:40 Total Bilirubin 0.4 (0.2-1.3) mg/dL AST 22 (14-36) U/L ALT 25 (6-35) U/L Alkaline Phosphatase 66 (38-126) U/L Albumin 2.9 L (3.5-5.1) g/dL AMG Consult Billing Inpatient Consult Inpatient Consults: [id number] Consult Moderate
--- NOTE | 2023-07-22 12:07 | P.PNIM_ITS ---
Progress Note: A&P Assessment and Plan (1) Lung mass: Code(s): R91.8 - Other nonspecific abnormal finding of lung field Status: Acute Assessment and Plan: * CT showed coarse reticulonodular infiltrates of the upper lobes anteriorly which may be postinfectious/inflammatory, although malignancy is not excluded. There are cavitary changes in the right upper lobe with associated bronchiectasis. Consider correlation with pet/CT scan or short-term follow-up CT in 3 months. * Oncology following - likely outpatient PET scan (2) Weight loss: Code(s): R63.4 - Abnormal weight loss Status: Acute Assessment and Plan: * patient reports 30+ lb weight loss in past 3 months. * computing systems mechanic consulted (3) UTI (urinary tract infection): Code(s): N39.0 - Urinary tract infection, site not specified Status: Acute Assessment and Plan: * abnormal UA on admission * continue Rocephin * UA culture pending (4) Breast mass, right: Qualifiers: Breast mass location: lower outer quadrant Qualified Code(s): N63.13 - Unspecified lump in the right breast, lower outer quadrant Code(s): N63.10 - Unspecified lump in the right breast, unspecified quadrant Status: Acute Assessment and Plan: * CT showed heterogeneously enhancing right breast mass measuring up to 4 cm which abuts the skin surface. Recommend correlation with diagnostic mammogram and ultrasound. Oncology following, s/p: breast biopsy (5) Left-sided weakness: Code(s): R53.1 - Weakness Status: Acute Assessment and Plan: -initiate fall precaution -check blood glucose q.4 -Brain MRI pending -neurology consulted appreciate recommendation and plan -LDL pending -A1c pending -echocardiogram with bubble pending Start ASA 81 mg daily, Start Plavix 75 mg daily x3 weeks Plan Attempted to call Son to discuss plan Continue home medications: VTE Prophylaxis: SCDs DIET: Puree Anticipated hospital stay: >2 days Code Status: Full Subjective Date/time seen: 07/22/23 12:07 Interval history: Pt seen this a.m. she is resting in the bed in no acute distress. Pt reported mild left side weakness yesterday, this morning she reports her s/s have resolved, she denied any SOB, chest pain, slurred speech or dizziness at the time her left side weakness started. She endorses that she is able to grab her drink without any weakness that she had yesterday. Plan to have, CTA neck, Brain MRI, consult neuro, order echo with bubble, start ASA, plavix, check LDL, A1c Review of Systems Review of Systems: All systems reviewed & are unremarkable except as noted in HPI and below Exam Narrative: GENERAL: ill appearing, thin and in no acute distress. HEAD: Normocephalic, atraumatic. EYES: PERRLA and EOMI. ENT: Mucous membranes moist. NECK: Supple. CHEST: Barrel chest, diminished lung sounds. No respiratory distress. HEART: RRR. No murmur heard. Normal peripheral pulses. ABDOMEN: Soft, nontender, nondistended, normal active bowel sounds. EXTREMITIES: Normal range of motion. No edema. SKIN: Warm, dry, no rash. NEURO: Alert and oriented x3. No focal deficits. PSYCH: Normal mood and affect. Objective Data Vital Signs Vital Signs: Vital Signs - 24 hr 07/21/23 13:50 07/21/23 17:24 07/21/23 20:00 Temperature 98.6 F 98.2 F 97.3 F L Pulse Rate 92 87 87 Respiratory Rate 30 H 30 H 16 Blood Pressure 123/53 L 150/62 H 156/67 H Pulse Oximetry 97 98 98 Oxygen Delivery Oxygen Flow Rate 07/21/23 20:00 07/22/23 00:00 07/22/23 04:00 Temperature 97.2 F L 97.2 F L Pulse Rate 86 79 Respiratory Rate 16 16 Blood Pressure 151/69 H 155/61 H Pulse Oximetry 98 97 96 Oxygen Delivery Nasal Cannula Oxygen Flow Rate 2 07/22/23 08:00 07/22/23 08:24 07/22/23 09:31 Temperature 98.1 F Pulse Rate 74 Respiratory Rate 16 Blood Pressure 153/62 H Pulse Oximetry 96 99 Oxygen Delivery Nasal Cannula Nasal Cannula Oxygen Flow Rate 2 2 Intake/Output Intake/Output: Intake & Output 07/19/23 07/20/23 07/21/23 07/22/23 23:59 23:59 23:59 23:59 Intake Total 4083.8 1250 990 615 Output Total 150 300 Balance 4083.8 1250 840 315 Meds/Results Medications: Active Medications Generic Name Dose Route Start Last Admin Trade Name Freq PRN Reason Stop Dose Admin Acetaminophen 650 mg 07/18/23 19:57 07/20/23 21:21 Acetaminophen Elixir 325 Mg/10.15 Ml Udc PO 650 mg Q4H PRN Administration Mild Pain (1-3) or Fever Bisacodyl 10 mg 07/20/23 10:09 07/20/23 11:38 Bisacodyl 10 Mg Suppository RECTAL 10 mg QAM PRN Administration Constipation Calcium Carbonate 200 mg 07/18/23 09:45 07/20/23 11:43 Calcium Carbonate (Tums) 500 Mg (200 Mg Elemental) PO 200 mg Q6H PRN Administration Indigestion Ceftriaxone Sodium 1 gm in 50 mls @ 100 mls/hr 07/18/23 13:00 07/21/23 13:50 Rocephin 1 Gm/Ns 50 Ml IVPB Infused Q24H GLEN Infusion Morphine Sulfate 2 mg 07/17/23 18:36 07/22/23 02:25 Morphine Sulfate (*Crx) 2 Mg/Ml Inj IV PUSH 2 mg Q2H PRN Administration Pain Rated 7-10 Multivitamins Therapeutic 1 tablet 07/18/23 09:00 07/22/23 07:46 Multivitamins Therapeutic Tab (*Bkc) PO 1 tablet DAILY GLEN Administration Ondansetron HCl 4 mg 07/17/23 18:36 07/20/23 02:12 Ondansetron Inj 4 Mg/2 Ml Vial IV PUSH 4 mg Q4H PRN Administration Nausea Perflutren Lipid Microsphere 0 ml 07/21/23 16:01 Perflutren Lipid Microspheres 1.5 Ml Vial Diluted To 10 Ml Total Volume IV PUSH 07/24/23 16:01 ONCE PRN adequate visualization Protocol Polyethylene Glycol 17 gm 07/20/23 10:09 07/21/23 10:18 Polyethylene Glycol 3350 17 Gm Powd.Pack PO 17 gm QAM PRN Administration Constipation Radiology Results: ITS Impressions Chest X-Ray 07/17/23 16:02 Impression: 1: Bilateral interstitial infiltrates which may represent mild edema or pneumonia. 2: Emphysema. Chest/Abdomen/Pelvis CT 07/17/23 17:19 IMPRESSION: 1. Coarse reticulonodular infiltrates of the upper lobes anteriorly which may be postinfectious/inflammatory, although malignancy is not excluded. There are cavitary changes in the right upper lobe with associated bronchiectasis. Consider correlation with pet/CT scan or short-term follow-up CT in 3 months. Clinically correlate for history of malignancy. 2: Mediastinal lymphadenopathy, likely reactive. 3: Emphysema. 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 ADDENDUM: 07/19/23 1407 Addendum: There is an heterogeneously enhancing right breast mass measuring up to 4 cm which abuts the skin surface. Recommend correlation with diagnostic mammogram and ultrasound. Breast Core Needle Biopsy 07/19/23 12:27 IMPRESSION: Successful ultrasound guided biopsy of right 9:00 breast mass with biopsy marker placement. Please refer to pathology report for histologic analysis. Mammogram Diagnostic 07/19/23 12:27 IMPRESSION: Successful ultrasound guided biopsy of right 9:00 breast mass with biopsy marker placement. Please refer to pathology report for histologic analysis. Modified Barium Swallow 07/20/23 09:11 IMPRESSION: 1. Normal modified barium swallow. 2. Please refer to the speech therapy report for recommendations. Head CT 07/21/23 15:05 IMPRESSION: 1. Acute versus subacute infarct in the right frontoparietal region. Head/Neck CTA 07/21/23 16:53 IMPRESSION: 1. Acute versus subacute infarct in the right frontoparietal region. 2. No aneurysm or significant intracranial arterial stenosis. 3. 62% stenosis of the proximal right internal carotid artery relative to normal distal artery lumen diameter (NASCET criteria). 4. 0% stenosis of the proximal left internal carotid artery relative to normal distal artery lumen diameter. Labs Labs: Laboratory Results - last 24 hr 07/21/23 07/22/23 14:17 04:40 WBC 7.8 RBC 3.65 L Hgb 11.0 L Hct 34.9 L MCV 95.6 MCH 30.1 MCHC 31.5 L RDW 13.7 Plt Count 295 MPV 8.8 Immature Gran % (Auto) 0.8 H Neut % (Auto) 72.2 Lymph % (Auto) 12.6 L [place] % (Auto) 11.7 H Eos % (Auto) 2.2 Baso % (Auto) 0.5 Lymph # (Auto) 0.98 [place] # (Auto) 0.9 H Eos # (Auto) 0.2 Baso # (Auto) 0.0 Abs Immat Gran (auto) 0.06 H Absolute Neuts (auto) 5.6 Absolute Nucleated RBC 0.000 Nucleated RBC % 0.0 Sodium 136 L Potassium 3.6 Chloride 100 Carbon Dioxide 36 H Anion Gap 0 L BUN 9 Creatinine 0.50 L Estim Creat Clear Calc 46 Estimated GFR > 60 Glucose 88 POC Capillary Glucose 181 H Calcium 8.4 Total Bilirubin 0.4 AST 22 ALT 25 Alkaline Phosphatase 66 Total Protein 6.0 L Albumin 2.9 L
[2023-07-22] MEDS: ASPIRIN 81 MG ENTERIC TABLET PO (12:35)
[2023-07-22] MEDS: CLOPIDOGREL BISULFATE 75 MG TABLET PO (12:35)
[2023-07-22 12:48] LABS: Hemoglobin A1C 5.6 % (<5.7)
[2023-07-22 12:58] LABS: LDL Cholesterol Direct 65 mg/dL
[2023-07-23] VITALS (10 sets, daily range): BP systolic 129–143; BP diastolic 50–63; PULSE 75–102; RESP 12–20; TEMP 36.1–36.8; O2SAT 97–100
[2023-07-23 05:11] LABS: Basophils Percent Auto 0.6 % (0.2-1.2); Eosinophils Absolute Auto 0.3 K/mm3 (0-0.3); Eosinophils Percent Auto 3.6 % (0-4.4); Hematocrit 35.4 % (37.0-47.0); Hemoglobin 11.1 g/dL (12.0-15.0); Immature Granulocyte Absolute 0.06 K/mm3 (0.00-0.031); Immature Granulocyte Percent A 0.9 % (0-0.5); Lymphocytes Absolute Auto 1.07 K/mm3 (0.9-3.2); Lymphocytes Percent Auto 15.3 % (18.3-44.2); Mean Corpuscular HGB Conc 31.4 g/dl (32-36); Mean Corpuscular Hemoglobin 29.8 pg (26-34); Mean Corpuscular Volume 95.2 fl (80-100); Mean Platelet Volume 8.9 fl (7.4-10.4); Monocytes Absolute Auto 0.9 K/mm3 (0.1-0.6); Monocytes Percent Auto 12.3 % (2.6-8.5); Neutrophils Absolute Auto 4.7 K/mm3 (1.3-6.7); Neutrophils Percent Auto 67.3 % (45.5-73.1); Platelet Count Result 313 k/mm3 (150-375); Red Blood Count 3.72 M/mm3 (4.2-5.4); Red Cell Distribution Width 13.6 % (11.5-14.5)
[2023-07-23 05:30] LABS: Alanine Aminotransferase 23 U/L (6-35); Albumin Level 3.1 g/dL (3.5-5.1); Alkaline Phosphatase 65 U/L (38-126); Anion Gap 0 mmol/L (4-12); Aspartate Amino Transferase 25 U/L (14-36); Bilirubin,Total 0.4 mg/dL (0.2-1.3); Blood Urea Nitrogen 10 mg/dL (7-17); Calcium 8.9 mg/dL (8.4-10.2); Carbon Dioxide 35 mmol/L (22-30); Chloride 101 mmol/L (98-107); Estimated CRCL calculation 46 ml/min; Estimated Glomerular Filt Rate > 60; Glucose 94 mg/dL (65-110); Potassium 3.5 mmol/L (3.4-5.0); Sodium 136 mmol/L (137-145)
[2023-07-23] MEDS: ASPIRIN 81 MG ENTERIC TABLET PO (09:33)
[2023-07-23] MEDS: CLOPIDOGREL BISULFATE 75 MG TABLET PO (09:33)
[2023-07-23] MEDS: MULTIVITAMINS THERAPEUTIC TAB (*BKC) 1 TABLET PO (09:33)
--- NOTE | 2023-07-23 09:49 | P.CONGI_ITS ---
I, Juan Dong MD, have provided a substantive portion of the care of this patient and discussed the patient with my Nurse Practitioner. I have reviewed any new relevant radiographic and laboratory results including medications. I agree with her documentation as noted below.?I personally performed the medical decision making and much of the history and exam for this encounter. briefly, she was admitted days ago with shortness of breath, found to have lung lesions but then also had new onset of weakness, MRI brain small stroke and started on plavix with asa. She has chronic dysphagia and this is unchanged, as a matter of fact right now she is having for dinner [place] sandwich. She has some weight loss and never had scopes, she has chronic constipation and giv en her age she is unsure if she ever would get one. Plan is EGD as outpatient, colonoscopy is patient wishes (also just diagnosed during this hospitalization with breast cancer after recent biopsy) Assessment and Plan Assessment and plan (1) Dysphagia: Code(s): R13.10 - Dysphagia, unspecified Status: Acute Assessment and Plan: -Asked to be seen for esophageal dysphagia that has been ongoing for several ye ars and has not acutely changed since CVA. She could underlying stricture or webbing due to chronic GERD. Reports hx of bleeding stomach ulcer several years ago at [facility], stopped Tagamet 1 year ago. She is now on Plavix and aspirin due to recent CVA. -modified barium swallow with speech showed normal motility but did recommended pureed diet. -will start her on pantoprazole 40 mg b.i.d. -Speech therapy following -Discussed eating slow and chewing up food all the way. -Avoid NSAIDs -UGI to be arranged--This was cancelled due to constipation and I am okay with this. Discussed with nurse. -consider EGD outpatient, could consider an inpatient but due to recent start of Plavix and aspirin this would likely need to be held prior to doing this. -recommend follow-up in the office after discharge to follow up on the dysphagia. (2) Nausea: Code(s): R11.0 - Nausea Status: Acute Assessment and Plan: Trial of pantoprazole 40 mg BID (3) GERD (gastroesophageal reflux disease): Code(s): K21.9 - Gastro-esophageal reflux disease without esophagitis Status: Acute Assessment and Plan: PPI BID (4) Weight loss: Code(s): R63.4 - Abnormal weight loss Status: Acute Assessment and Plan: 30 lb weight loss (5) Stroke: Code(s): I63.9 - Cerebral infarction, unspecified Status: Acute Assessment and Plan: Neurology following (6) Carotid stenosis, right: Code(s): I65.21 - Occlusion and stenosis of right carotid artery Status: Acute Assessment and Plan: neurology following recommended vascular surgeon (7) Left-sided weakness: Code(s): R53.1 - Weakness Status: Acute (8) UTI (urinary tract infection): Code(s): N39.0 - Urinary tract infection, site not specified Status: Acute Assessment and Plan: on antibiotics (9) Lung mass: Code(s): R91.8 - Other nonspecific abnormal finding of lung field Status: Acute Assessment and Plan: oncology following (10) Breast mass, right: Qualifiers: Breast mass location: lower outer quadrant Qualified Code(s): N63.13 - Unspecified lump in the right breast, lower outer quadrant Code(s): N63.10 - Unspecified lump in the right breast, unspecified quadrant Status: Acute Assessment and Plan: bx pending oncology pending (11) COPD (chronic obstructive pulmonary disease): Code(s): J44.9 - Chronic obstructive pulmonary disease, unspecified Status: Acute Assessment and Plan: on Oxygen, which his new GI Consult Note Consult date/time: 07/23/23 09:49 Reason for consult: Dysphagia HPI: Valeria Deutsch is a 88 year old female at be seen at the request of the hospitalist for dysphagia. PMH medical history of COPD and chronic tobacco abuse. She verbally reports a history of a bleeding ulcer several years ago at [facility] she believes. Presented to the [facility] ER for increasing cough and chest pain for 1 week. She was have found to have a lung mass and a right breast mass, workup currently in process for possible malignancy along with UTI on Rocephin. While admitted she was noted to have left-sided weakness at of new onset and was found on brain MRI to have multiple small acute infarcts in the right frontal and parietal lobes and small infarct in the right temporal occipital region. Neurology started her on Plavix and ASA 81 mg, had dose this AM. Oncology is pending tumor marker, breast biopsy and plan for outpatient PET scan. Modified barium swallow with speech noted oral stage, pharyngeal stage and cervical/esophageal stage of the swallow were normal, speech therapist recommended pureed diet. Plan for echo today In regards to the dysphagia, states this has been ongoing for several years to spicy foods. Around 1 to 2 times a day with eating she will have to vomit up the food and will vomit up with small food particles. This is not been acutely getting worse. Denies any odynophagia. She does report chronic acid reflux and takes Tums [id number] or but states that milk will help soothe her stomach most. She does have nausea which milk does help. Denies any vomiting. Denies any chronic NSAID use. She does report decreased appetite and has lost around 30 lb over the last several months that has been unintentional. She denies any chronic to patient, diarrhea, melena or hematochezia. She has never had an EGD, she reports although she told me she had a bleeding ulcer several years ago. She previously was on a tagement but stopped that around 1 year ago. Continues to report left hand weakness. Review of Systems Constitutional: Constitutional: Denies headache(s) and Denies weakness Eyes: Eyes: Denies blurry vision ENT: Reports Normal hearing present, Denies headache(s) and Denies neck pain Cardiovascular: Cardiovascular: Denies chest pain and Denies dyspnea Respiratory: Respiratory: Reports chest congestion, Reports cough and Reports dyspnea Gastrointestinal: Gastrointestinal: Reports as per HPI, Denies abdominal pain, Reports heartburn and Reports nausea Comments: dysphagia Neurologic: Reports Normal hearing present, Denies headache(s) and Denies weakness Psychiatric: Psychiatric: Denies anxiety Hematologic/Lymphatic: Hematologic/Lymphatic: Denies easy bleeding Allergic/Immunologic: Allergic/Immunologic: Denies urticaria [facility] Social History Social History Smoking packs per day: 0.5 Smoking cigarettes per day: 10.0 Smoking status: Current every day smoker Tobacco type: cigarettes Second hand tobacco smoke exposure: Yes Alcohol intake: never Substance use: never Substance use type: does not use Do You Feel Safe in your Home?: Yes Lack of Transportation: No Lack of Food: Never True Current Housing: I Have Housing Concerned About Future Housing: No Difficulty Paying Gas/Electric Bills: No Difficulty Paying for Meds: No Currently Unemployed: No Education: High School Diploma/GED Difficulty w/ Childcare or Family Care: No Spiritual care concerns: No Meds Home Medications and Allergies Home Medications Medication Instructions Recorded Confirmed Type multivitamin 1 tablet PO DAILY 07/17/23 07/17/23 History Allergies Allergy/AdvReac Type Severity Reaction Status Date / Time No Known Allergies Allergy Unverified 08/18/15 14:44 Vital Signs Vital Signs - 24 hr 07/22/23 12:07 07/22/23 16:00 07/22/23 19:14 Temperature 97.8 F 96.9 F L 98.3 F Pulse Rate 79 97 86 Respiratory Rate 16 16 18 Blood Pressure 166/66 H 133/66 128/50 L Pulse Oximetry 99 92 98 Oxygen Delivery Oxygen Flow Rate 07/22/23 20:00 07/23/23 00:00 07/23/23 04:00 Temperature 98.3 F 98.1 F Pulse Rate 75 81 Respiratory Rate 18 18 Blood Pressure 136/60 132/58 L Pulse Oximetry 98 100 99 Oxygen Delivery Nasal Cannula Oxygen Flow Rate 2 Exam Const: General: comfortable and no acute distress Other: thin appearing HENMT: Face/Nose/Sinus: Normal nares present Other: has nasal cannula in place with oxygen. Eyes: General: appearance normal, both eyes and all related structures Neck: Neck: supple and no JVD Resp: Auscultation: diminished lung sounds Other: course cough noted during exam Cardio: Rate: regular rate Rhythm: regular rhythm GI: Inspection: non-distended GI Palp: Yes Soft to palpation, No Tenderness to palpation present (GI) and No Guarding due to palpation present (GI) Auscultation: normal bowel sounds Skin: General skin exam: normal color Neuro: Speech: normal speech Extrem: General: normal to inspection Psych: Mental Status: mental status grossly normal Results Labs 07/23/23 04:28 07/23/23 04:28 Labs: Short CBC 07/23/23 Range/Units 04:28 WBC 7.0 (4.5-10.0) K/mm3 Hgb 11.1 L (12.0-15.0) g/dL Hct 35.4 L (37.0-47.0) % Plt Count 313 (150-375) k/mm3 BMP 07/23/23 04:28 Sodium 136 L Potassium 3.5 Chloride 101 Carbon Dioxide 35 H BUN 10 Creatinine 0.50 L Glucose 94 Calcium 8.9 Liver Function 07/23/23 Range/Units 04:28 Total Bilirubin 0.4 (0.2-1.3) mg/dL AST 25 (14-36) U/L ALT 23 (6-35) U/L Alkaline Phosphatase 65 (38-126) U/L Albumin 3.1 L (3.5-5.1) g/dL AMG Consult Billing Inpatient Consult Inpatient Consults: [id number] Initial Admit High
[2023-07-23] MEDS: PANTOPRAZOLE 40 MG TABLET PO ×2 (09:57→20:08)
[2023-07-23] MEDS: MAGNESIUM HYDROXIDE SUSP 30 ML UDC PO (09:58)
--- NOTE | 2023-07-23 11:06 | PCNFU ---
Nutrition Follow-Up Complete: Severe Protein Calorie Malnutrition as related to inadequate protein-energy intake with increased protein-energy needs in setting of chronic disease of condition (lung mass) as evidenced by minimal oral intake for > 1-2 months; significant weight loss of 27% (34 ibs) in 4 months: moderate subcutaneous fat loss (orbital fat pads) and severe muscle wasting calf region (gastrocnemius muscle). goal: Meet estimated nutrition needs. Patient has limited progress towards goal. We will continue current goal. Pt current nutrition is Pureed, Level 4. Nutrition recommendation: regular Last recorded weight is 43.7 kg, no new weight to report. Bowel Motility:+BM reported 07/14 Labs Reviewed:Cr 0.5, Na 136 Meds Noted:Miralax, Milk of Mg, Rocephin, MVI Skin: WNL Additional Notes: Patient had MBS on 07/19-at this time patient did pass swallow study but requested pureed diet. Intakes have been poor 0-30% of meals. Spoke with Hospitalist today and recommend to labialize diet for more food choices. Patient is receiving Ensure Enlive TID and ice cream for additional kcal and protein needs. Agree with diet orders. Will monitor weight, labs, skin, meds, oral intake every 5 days.
--- NOTE | 2023-07-23 13:49 | PCOTNOTE ---
The patient treatment was not able to be completed. Patient out of the room. Will plan to continue treatment per plan of care.
[2023-07-23] MEDS: BISACODYL 10 MG SUPPOSITORY RECTAL (14:03)
--- NOTE | 2023-07-23 14:51 | P.PNIM_ITS ---
Progress Note: A&P Assessment and Plan (1) Lung mass: Code(s): R91.8 - Other nonspecific abnormal finding of lung field Status: Acute Assessment and Plan: * CT showed coarse reticulonodular infiltrates of the upper lobes anteriorly which may be postinfectious/inflammatory, although malignancy is not excluded. There are cavitary changes in the right upper lobe with associated bronchiectasis. Consider correlation with pet/CT scan or short-term follow-up CT in 3 months. * Oncology following - likely outpatient PET scan (2) Weight loss: Code(s): R63.4 - Abnormal weight loss Status: Acute Assessment and Plan: * patient reports 30+ lb weight loss in past 3 months. * diabetes trainer consulted (3) UTI (urinary tract infection): Code(s): N39.0 - Urinary tract infection, site not specified Status: Acute Assessment and Plan: * abnormal UA on admission * will d/c Rocephin after last dose today * UA culture positive for Aerococcus urinae (4) Breast mass, right: Qualifiers: Breast mass location: lower outer quadrant Qualified Code(s): N63.13 - Unspecified lump in the right breast, lower outer quadrant Code(s): N63.10 - Unspecified lump in the right breast, unspecified quadrant Status: Acute Assessment and Plan: * CT showed heterogeneously enhancing right breast mass measuring up to 4 cm which abuts the skin surface. Recommend correlation with diagnostic mammogram and ultrasound. Oncology following, s/p: breast biopsy (5) Left-sided weakness: Code(s): R53.1 - Weakness Status: Acute Assessment and Plan: -initiate fall precaution -check blood glucose q.4 -Brain MRI showed multiple small relatively acute infarcts extending in a paramedian sagittal oriented band along the right frontal and parietal lobes with a few additional small infarcts in the right temporal occipital region. The distribution at the watershed between the anterior, middle and posterior cerebral circulation suggests possible hypotensive etiology. -neurology consulted appreciate recommendation and plan -LDL 65 - hold off on statin -A1c 5.6 -echocardiogram with bubble unremarkable * Start ASA 81 mg daily, * Start Plavix 75 mg daily x3 weeks * Will need vascular referral given >50% stenosis on the same side of the stroke (6) Dysphagia: Code(s): R13.10 - Dysphagia, unspecified Status: Chronic Assessment and Plan: * GI consulted * Speech evaluated * She could underlying stricture or webbing due to chronic GERD. Reports hx of bleeding stomach ulcer several years ago at [facility], stopped Tagamet 1 year ago. * pantoprazole 40 mg b.i.d. * eating slow and chewing up food all the way. * Avoid NSAIDs * consider EGD outpatient * recommend follow-up in the office after discharge to follow up on the dysphagia. Subjective Date/time seen: 07/23/23 14:51 Interval history: Patient sitting up in her chair this morning in no acute distress. Denies SOB, chest pain, slurred speech or dizziness. Her stroke symptoms have resolved. She endorses some epigastric pain throughout the night, felt like she needed some Tums for indigestion. GI consulted and evaluating. Review of Systems Review of Systems: All systems reviewed & are unremarkable except as noted in HPI and below Exam Narrative: GENERAL: ill appearing, thin and in no acute distress. HEAD: Normocephalic, atraumatic. EYES: PERRLA and EOMI. ENT: Mucous membranes moist. NECK: Supple. CHEST: Lung sounds clear to auscultation. HEART: RRR. No murmur heard. Normal peripheral pulses. ABDOMEN: Soft, nontender, nondistended, normal active bowel sounds. EXTREMITIES: Normal range of motion. No edema. SKIN: Warm, dry, no rash. NEURO: Alert and oriented x3. No focal deficits. PSYCH: Normal mood and affect. Objective Data Vital Signs Vital Signs: Vital Signs - 24 hr 07/22/23 16:00 07/22/23 19:14 07/22/23 20:00 Temperature 96.9 F L 98.3 F Pulse Rate 97 86 Respiratory Rate 16 18 Blood Pressure 133/66 128/50 L Pulse Oximetry 92 98 98 Oxygen Delivery Nasal Cannula Oxygen Flow Rate 2 07/23/23 00:00 07/23/23 04:00 07/23/23 10:17 Temperature 98.3 F 98.1 F 97.8 F Pulse Rate 75 81 81 Respiratory Rate 18 18 20 Blood Pressure 136/60 132/58 L 129/55 L Pulse Oximetry 100 99 99 Oxygen Delivery Oxygen Flow Rate 07/23/23 09:30 07/23/23 13:02 07/23/23 14:14 Temperature 97.4 F L Pulse Rate 90 90 Respiratory Rate 20 Blood Pressure 134/50 L Pulse Oximetry 99 98 97 Oxygen Delivery Nasal Cannula Nasal Cannula Oxygen Flow Rate 2 2 Intake/Output Intake/Output: Intake & Output 07/20/23 07/21/23 07/22/23 07/23/23 23:59 23:59 23:59 23:59 Intake Total 6816 384 5179 240 Output Total 150 300 Balance 1250 840 845 240 Meds/Results Medications: Active Medications Generic Name Dose Route Start Last Admin Trade Name Freq PRN Reason Stop Dose Admin Acetaminophen 650 mg 07/18/23 19:57 07/20/23 21:21 Acetaminophen Elixir 325 Mg/10.15 Ml Udc PO 650 mg Q4H PRN Administration Mild Pain (1-3) or Fever Aspirin 81 mg 07/22/23 12:25 07/23/23 09:33 Aspirin 81 Mg Enteric Tablet PO 81 mg QAM GLEN Administration Bisacodyl 10 mg 07/20/23 10:09 07/23/23 14:03 Bisacodyl 10 Mg Suppository RECTAL 10 mg QAM PRN Administration Constipation Calcium Carbonate 200 mg 07/18/23 09:45 07/20/23 11:43 Calcium Carbonate (Tums) 500 Mg (200 Mg Elemental) PO 200 mg Q6H PRN Administration Indigestion Clopidogrel Bisulfate 75 mg 07/22/23 12:25 07/23/23 09:33 Clopidogrel Bisulfate 75 Mg Tablet PO 75 mg QAM GLEN Administration Magnesium Hydroxide 30 ml 07/23/23 09:00 07/23/23 09:58 Magnesium Hydroxide Susp 30 Ml Udc PO 30 ml QAM GLEN Administration Morphine Sulfate 2 mg 07/17/23 18:36 07/22/23 02:25 Morphine Sulfate (*Crx) 2 Mg/Ml Inj IV PUSH 2 mg Q2H PRN Administration Pain Rated 7-10 Multivitamins Therapeutic 1 tablet 07/18/23 09:00 07/23/23 09:33 Multivitamins Therapeutic Tab (*Bkc) PO 1 tablet DAILY GLEN Administration Ondansetron HCl 4 mg 07/17/23 18:36 07/20/23 02:12 Ondansetron Inj 4 Mg/2 Ml Vial IV PUSH 4 mg Q4H PRN Administration Nausea Pantoprazole Sodium 40 mg 07/23/23 09:00 07/23/23 09:57 Pantoprazole 40 Mg Tablet PO 40 mg Q12HR GLEN Administration Perflutren Lipid Microsphere 0 ml 07/21/23 16:01 Perflutren Lipid Microspheres 1.5 Ml Vial Diluted To 10 Ml Total Volume IV PUSH 07/24/23 16:01 ONCE PRN adequate visualization Protocol Polyethylene Glycol 17 gm 07/20/23 10:09 07/21/23 10:18 Polyethylene Glycol 3350 17 Gm Powd.Pack PO 17 gm QAM PRN Administration Constipation Radiology Results: ITS Impressions Chest X-Ray 07/17/23 16:02 Impression: 1: Bilateral interstitial infiltrates which may represent mild edema or pneumonia. 2: Emphysema. Chest/Abdomen/Pelvis CT 07/17/23 17:19 IMPRESSION: 1. Coarse reticulonodular infiltrates of the upper lobes anteriorly which may be postinfectious/inflammatory, although malignancy is not excluded. There are cavitary changes in the right upper lobe with associated bronchiectasis. Consider correlation with pet/CT scan or short-term follow-up CT in 3 months. Clinically correlate for history of malignancy. 2: Mediastinal lymphadenopathy, likely reactive. 3: Emphysema. 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 ADDENDUM: 07/19/23 1407 Addendum: There is an heterogeneously enhancing right breast mass measuring up to 4 cm which abuts the skin surface. Recommend correlation with diagnostic mammogram and ultrasound. Breast Core Needle Biopsy 07/19/23 12:27 IMPRESSION: Successful ultrasound guided biopsy of right 9:00 breast mass with biopsy marker placement. Please refer to pathology report for histologic analysis. Mammogram Diagnostic 07/19/23 12:27 IMPRESSION: Successful ultrasound guided biopsy of right 9:00 breast mass with biopsy marker placement. Please refer to pathology report for histologic analysis. Modified Barium Swallow 07/20/23 09:11 IMPRESSION: 1. Normal modified barium swallow. 2. Please refer to the speech therapy report for recommendations. Head CT 07/21/23 15:05 IMPRESSION: 1. Acute versus subacute infarct in the right frontoparietal region. Head/Neck CTA 07/21/23 16:53 IMPRESSION: 1. Acute versus subacute infarct in the right frontoparietal region. 2. No aneurysm or significant intracranial arterial stenosis. 3. 62% stenosis of the proximal right internal carotid artery relative to normal distal artery lumen diameter (NASCET criteria). 4. 0% stenosis of the proximal left internal carotid artery relative to normal distal artery lumen diameter. Brain MRI 07/22/23 12:40 IMPRESSION: 1. Multiple small relatively acute infarcts extending in a paramedian sagittal oriented band along the right frontal and parietal lobes with a few additional small infarcts in the right temporal occipital region. The distribution at the watershed between the anterior, middle and posterior cerebral circulation suggests possible hypotensive etiology. Labs Labs: Laboratory Results - last 24 hr 07/23/23 04:28 WBC 7.0 RBC 3.72 L Hgb 11.1 L Hct 35.4 L MCV 95.2 MCH 29.8 MCHC 31.4 L RDW 13.6 Plt Count 313 MPV 8.9 Immature Gran % (Auto) 0.9 H Neut % (Auto) 67.3 Lymph % (Auto) 15.3 L Piatt % (Auto) 12.3 H Eos % (Auto) 3.6 Baso % (Auto) 0.6 Lymph # (Auto) 1.07 Piatt # (Auto) 0.9 H Eos # (Auto) 0.3 Baso # (Auto) 0.0 Abs Immat Gran (auto) 0.06 H Absolute Neuts (auto) 4.7 Absolute Nucleated RBC 0.000 Nucleated RBC % 0.0 Sodium 136 L Potassium 3.5 Chloride 101 Carbon Dioxide 35 H Anion Gap 0 L BUN 10 Creatinine 0.50 L Estim Creat Clear Calc 46 Estimated GFR > 60 Glucose 94 Calcium 8.9 Total Bilirubin 0.4 AST 25 ALT 23 Alkaline Phosphatase 65 Total Protein 6.0 L Albumin 3.1 L Quality VTE Prophylaxis VTE prophylaxis: mechanical ordered
--- NOTE | 2023-07-23 16:01 | ECHO_ITS ---
Patient Info Name: Valeria Deutsch Age: 88 years : 1935 Gender: Female Ht: 64 in Wt: 94 lbs BSA: 1.37 m2 HR: 78 bpm BP: 132 / 58 mmHg Heart Rhythm: Sinus Rhythm Technical Quality: Good Exam Date: 07/23/2023 11:16 AM Exam Location: Echo Lab Exam Room: 241 Patient Status: Inpatient Admit Date: 07/17/2023 Staff Ordering Physician: Lety Vogt APRN Smoking Pipe Coater: Mirian Patrick RDCS Attending Provider: Camelia Carlton DO Referring Physician: Torie KATZ; Exam Type: CA echo doppler w bubble study Study Info Indications - NEW INFARCT Complete two-dimensional, color flow and Doppler transthoracic echocardiogram is performed with agitated saline. Contrast/Agitated Saline Contrast/Ag. Saline: Agitated Saline Amount: 20.00 ml Administered By: Mirian Patrick [facility] Existing IV Access: Yes IV Access Condition: patent with no signs of infiltration Summary 1. Normal left ventricular systolic function without wall motion abnormality. 2. Calcified mitral valve annulus. 3. Small amount of mitral regurgitation. 4. Saline contrast injection which is positive late after injection more consistent with pulmonary arteriovenous shunting. Left Ventricle Left ventricular chamber dimension is normal. Left ventricular systolic function is normal, estimated at 65-70%. The left ventricular diastolic function is grade I diastolic dysfunction. Right Ventricle Right ventricular chamber dimension is normal. Left Atria Left atrial chamber dimension is normal. Right Atria Right atrial chamber dimension is normal. Atrial Septum Intact interatrial septum visualized by agitated saline imaging. Aortic Valve The aortic valve is normal. Pulmonic Valve The pulmonic valve is normal. Mitral Valve The mitral valve has normal leaflets. Tricuspid Valve The tricuspid valve leaflets are normal. There is mild tricuspid valve regurgitation. Pericardium/Pleural The pericardium appears normal. Aorta The aortic root size at the sinus of Valsalva is normal. Left Ventricular Outflow Tract Name Value Normal LVOT 2D LVOT Diameter 2.0 cm LVOT Doppler LVOT Peak Gradient 3 mmHg LVOT Mean Gradient 2 mmHg LVOT VTI 21 cm LVOT VTI/AV VTI Ratio 1.0 LVOT Stroke Volume 64 ml LVOT CO 12.3 l/min LVOT CI 9.0 l/min/m2 Pulmonic Valve Name Value Normal PV Doppler PV Peak Gradient 2 mmHg Mitral Valve Name Value Normal MV Doppler MV Decel [place] 213 cm/s2 MV PHT 86 ms MV Area (PHT) 2.5 cm2 4.0-5.0 MV Diastolic Function MV E Peak Velocity 63 cm/s MV A Peak Velocity 88 cm/s MV E/A 0.7 MV Decel Time 298 ms Tricuspid Valve Name Value Normal TV Regurgitation Doppler TR Peak Velocity 242 cm/s TR Peak Gradient 16 mmHg Estimated PAP/RSVP RA Pressure 10 mmHg <=5 PA Systolic Pressure 33 mmHg <36 RV Systolic Pressure 33 mmHg <36 Aorta Name Value Normal Ascending Aorta Ao Root Diameter (MM) 3.3 cm Ao Root Diam Index (MM) 2.4 cm/m2 Aortic Valve Name Value Normal AV Doppler AV Peak Velocity 104 cm/s AV Peak Gradient 4 mmHg AV Mean Gradient 2 mmHg AV VTI 21 cm AV Area (Cont Eq VTI) 3.1 cm2 >=3.0 AV Area (Cont Eq Luisito) 2.7 cm2 AV Regurgitation 2D LVOT Area 3.0 cm2 Ventricles Name Value Normal LV Dimensions 2D/MM IVS Diastolic Thickness (2D) 0.9 cm 0.6-1.0 LVID Diastole (2D) 3.9 cm 3.8-5.2 LVIW Diastolic Thickness (2D) 0.9 cm 0.6-0.9 LVID Systole (2D) 2.7 cm 2.2-3.5 LVOT Diameter 2.0 cm LV Mass (2D Cubed) 99.77 g 67.00-162.00 LV Mass Index (2D Cubed) 73 g/m2 43-95 Relative Wall Thickness (2D) 0.44 LV Fractional Shortening/Ejection Fraction 2D/MM LV Fractional Shortening (2D) 31 % 27-45 LV EF (2D Teicholz) 60 % 54-74 LV Diastolic Volume (4C MOD) 53 ml LV EF (4C MOD) 66 % LV Diastolic Volume (2C MOD) 45 ml LV EF (2C MOD) 71 % LV Diastolic Volume (BP MOD) 50 ml 46-106 LV Diastolic Volume Index (BP MOD) 36 ml/m2 29-61 LV Systolic Volume (BP MOD) 16 ml 14-42 LV Systolic Volume Index (BP MOD) 11 ml/m2 8-24 LV EF (BP MOD) 68 % 54-74 LV Diastolic Length (4C) 7.1 cm LV Systolic Length (4C) 5.4 cm LV Stroke Volume (4C MOD) 35 ml Atria Name Value Normal LA Dimensions LA Dimension (MM) 3.1 cm 2.7-3.8 LA Volume (4C A-L) 21 ml LA Volume (BP A-L) 25 ml RA Dimensions RA Area (4C) 10.0 cm2 <=18.0 Report Signatures
[2023-07-24] VITALS (7 sets, daily range): BP systolic 122–148; BP diastolic 51–67; PULSE 79–89; RESP 14–18; TEMP 36.4–36.7; O2SAT 97–99
[2023-07-24 05:55] LABS: Basophils Percent Auto 0.5 % (0.2-1.2); Eosinophils Absolute Auto 0.2 K/mm3 (0-0.3); Eosinophils Percent Auto 2.8 % (0-4.4); Hematocrit 34.9 % (37.0-47.0); Hemoglobin 10.8 g/dL (12.0-15.0); Immature Granulocyte Absolute 0.05 K/mm3 (0.00-0.031); Immature Granulocyte Percent A 0.7 % (0-0.5); Lymphocytes Absolute Auto 1.11 K/mm3 (0.9-3.2); Lymphocytes Percent Auto 14.9 % (18.3-44.2); Mean Corpuscular HGB Conc 30.9 g/dl (32-36); Mean Corpuscular Hemoglobin 29.8 pg (26-34); Mean Corpuscular Volume 96.1 fl (80-100); Mean Platelet Volume 9.1 fl (7.4-10.4); Monocytes Absolute Auto 0.8 K/mm3 (0.1-0.6); Monocytes Percent Auto 10.1 % (2.6-8.5); Neutrophils Absolute Auto 5.3 K/mm3 (1.3-6.7); Platelet Count Result 302 k/mm3 (150-375); Red Blood Count 3.63 M/mm3 (4.2-5.4); Red Cell Distribution Width 13.7 % (11.5-14.5); White Blood Count 7.4 K/mm3 (4.5-10.0)
[2023-07-24 06:08] LABS: Alanine Aminotransferase 21 U/L (6-35); Albumin Level 2.9 g/dL (3.5-5.1); Alkaline Phosphatase 57 U/L (38-126); Anion Gap 0 mmol/L (4-12); Aspartate Amino Transferase 25 U/L (14-36); Bilirubin,Total 0.3 mg/dL (0.2-1.3); Blood Urea Nitrogen 11 mg/dL (7-17); Calcium 8.3 mg/dL (8.4-10.2); Carbon Dioxide 35 mmol/L (22-30); Chloride 102 mmol/L (98-107); Estimated CRCL calculation 39 ml/min; Estimated Glomerular Filt Rate > 60; Glucose 85 mg/dL (65-110); Potassium 3.9 mmol/L (3.4-5.0); Sodium 137 mmol/L (137-145)
[2023-07-24] MEDS: ASPIRIN 81 MG ENTERIC TABLET PO (08:48)
[2023-07-24] MEDS: CLOPIDOGREL BISULFATE 75 MG TABLET PO (08:48)
[2023-07-24] MEDS: PANTOPRAZOLE 40 MG TABLET PO ×2 (08:48→20:54)
[2023-07-24] MEDS: MULTIVITAMINS THERAPEUTIC TAB (*BKC) 1 TABLET PO (08:48)
[2023-07-24] MEDS: MAGNESIUM HYDROXIDE SUSP 30 ML UDC PO (08:49)
--- NOTE | 2023-07-24 10:29 | WPDONCPN ---
Progress Note: A/P (1) Lung mass Code(s): R91.8 - Other nonspecific abnormal finding of lung field Status: Acute (2) Breast mass, right Qualifiers: Breast mass location: lower outer quadrant Qualified Code(s): N63.13 - Unspecified lump in the right breast, lower outer quadrant Code(s): N63.10 - Unspecified lump in the right breast, unspecified quadrant Status: Acute <Reymundo Lee - 07/24/23 16:47> (1) Lung mass Code(s): R91.8 - Other nonspecific abnormal finding of lung field Status: Acute (2) Breast mass, right Qualifiers: Breast mass location: lower outer quadrant Qualified Code(s): N63.13 - Unspecified lump in the right breast, lower outer quadrant Code(s): N63.10 - Unspecified lump in the right breast, unspecified quadrant Status: Acute <Xiomy Griffin - 07/24/23 10:29> - Additional Plan Attending note Patient seen and examined. 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 Plan is to perform PET scan as an outpatient. Patient has already been started on letrozole. Will add Tykerb as an outpatient. Based on the PET scan finding will decide about further management. Reymundo Lee MD <Reymundo Lee - 07/24/23 16:47> Valeria Deutshc is a 88 year old female with a past medical history of COPD. She has noticed a productive cough, with headache and dizziness. She was also having urinary frequency and urgency and states she was unable to pee for 3 days. Urinalysis is positive for infection. CT chest shows coarse reticulonodular infiltrates of the upper lobes anteriorly which may be postinfectious/inflammatory, although malignancy is not excluded. There are cavitary changes in the right upper lobe with associated bronchiectasis. Clinically correlate for history of malignancy. Mediastinal lymphadenopathy, likely reactive. She also has a right breast mass that has been around for about 2 years. She has gotten mammograms in the past which have been normal, but has not since this area of concern has popped up. It does not drain and sometimes causes her discomfort. She reports about a 20lb weight loss with fatigue. She denies any bleeding, fevers, chills, night sweats, or frequent infections. She is in active smoker for the last 35 years. Reports a family history of malignancy but no personal. Labs are notable for WBC 10, Hgb 11.7, Hct 36, Plt 244, Cr 0.50. 07/17 Lung mass- CT chest shows coarse reticulonodular infiltrates of the upper lobes anteriorly which may be postinfectious/inflammatory, although malignancy is not excluded. There are cavitary changes in the right upper lobe with associated bronchiectasis. Clinically correlate for history of malignancy. Mediastinal lymphadenopathy, likely reactive. There is concern for lung malignancy since patient does have an active smoking history vs PNA. I suggest treating empirically with antibiotics for pneumonia and patient can follow up outpatient with a CT/PET scan as suggested by radiologist since this cannot be done inpatient. Breast mass- There is a right breast mass of concern which has erythema and circular orange crusting without drainage or pus. This is concerning for malignancy, but patients states it has been stable for the last two years. I will do order an US R breast today, which she may need biopsied. If biopsy is recommended I will order as patient is agreeable. She can follow up outpatient with biopsy results if that is warranted. Mammogram will be deferred to outpatient. I will also order CA 15-3 for evaluation. 07/23 Breast and lung mass- There is a right breast mass of concern which has erythema and circular orange crusting without drainage. Biopsy shows ER+/NV+/HER2+ breast cancer. It is unknown if the lung mass is a distant metastasis at this time. She will still need a PET scan as an outpatient to evaluate further. I will start her on Letrazole 2.5mg daily. I will also add Tykerb once she is seen in office as this is a specialty medication. She can be discharged from oncology standpoint and follow up in 1-2 weeks after discharge and we will perform PET scan and discuss further plan of care. This patient's plan of care has been reviewed and approved by Dr. Reymundo Lee. If you have any questions regarding this hematology or oncology evaluation, feel free to contact us for further assistance.?Thank you for allowing us to be a part of this patient's care. Xiomy Griffin APRN 07/24/23;1033 <Xiomy Griffin 07/24/23 10:36> - Time Spent With Patient Total time spent is greater than 50% in coordination of care (as documented) at patient's floor/unit and/or counseling patient: <JesusReymundo FabiolaNyasia - 07/24/23 16:47> Total time spent is greater than 50% in coordination of care (as documented) at patient's floor/unit and/or counseling patient: <Xiomy Griffin 07/24/23 10:36> 15 - 25 [address] [facility] 07/24/23 10[facility]36> Subjective Interval history: Pt is resting on the side of bed, in no acute distress, using NC oxygen. She is feeling better overall. Still reports L sided weakness. <EliasXiomy 07/24/23 10:36> Review of Systems - Review of Systems All systems reviewed & are unremarkable except as noted in HPI and bel <EliasXiomy 07/24/23 10:36> - Neurologic Reports hearing normal, Denies headache(s), Denies weakness <EliasXiomy 07/24/23 10:36> Exam Vital signs: Temp Pulse Resp BP Pulse Ox O2 Del Method O2 Flow Rate 36.5 C 89 18 123/52 L 97 Nasal Cannula 2 07/24/23 14:30 07/24/23 14:30 07/24/23 14:30 07/24/23 14:30 07/24/23 14:30 07/24/23 09:27 07/24/23 09:27 FiO2 28 07/21/23 09:32 <Reymundo Lee - 07/24/23 16:47> Temp Pulse Resp BP Pulse Ox O2 Del Method O2 Flow Rate 36.4 C 79 18 142/62 H 97 Nasal Cannula 2 07/24/23 07:30 07/24/23 07:30 07/24/23 07:30 07/24/23 07:30 07/24/23 08:48 07/24/23 09:27 07/24/23 09:27 FiO2 28 07/21/23 09:32 <Xiomy Grififn 07/24/23 10:36> - Constitutional no acute distress <Xiomy Griffin 07/24/23 10:36> - Routine HEENT Exam Head: Present: atraumatic <[facility] 07/24/23 10:36> Eye: Present: EOMI, PERRL [facility] 10[facility]36> ENT: Present: mucous membranes dry <[facility] 07/24/23 10:36> - Routine Neck Exam Absent: lymphadenopathy <[facility] 07/24/23 10:36> - Routine Chest/Breast/Axilla Exam Breast: Present: tenderness, mass, swelling, erythema <[facility] 07/24/23 10:36> Axillae: Absent: lymphadenopathy <[facility] 07/24/23 10:36> - Routine Respiratory Exam Present: decreased breath sounds [facility] 07/24/23 10:36> - Routine Cardiovascular Exam Cardiovascular: Present: RRR, S1, S2 [facility] 07/24/23 10:36> - Routine Abdominal Exam Present: normal bowel sounds [facility] 07/24/23 10:36> PN: Objective Data - Labs CBC & Chem 7: 07/24/23 05:04 07/24/23 05:04 <Reymundo Lee - 07/24/23 16:47> Labs: Laboratory Results - last 24 hr 07/24/23 05:04 WBC 7.4 RBC 3.63 L Hgb 10.8 L Hct 34.9 L MCV 96.1 MCH 29.8 MCHC 30.9 L RDW 13.7 Plt Count 302 MPV 9.1 Immature Gran % (Auto) 0.7 H Neut % (Auto) 71.0 Lymph % (Auto) 14.9 L [place] % (Auto) 10.1 H Eos % (Auto) 2.8 Baso % (Auto) 0.5 Lymph # (Auto) 1.11 [place] # (Auto) 0.8 H Eos # (Auto) 0.2 Baso # (Auto) 0.0 Abs Immat Gran (auto) 0.05 H Absolute Neuts (auto) 5.3 Absolute Nucleated RBC 0.000 Nucleated RBC % 0.0 Sodium 137 Potassium 3.9 Chloride 102 Carbon Dioxide 35 H Anion Gap 0 L BUN 11 Creatinine 0.60 L Estim Creat Clear Calc 39 Estimated GFR > 60 Glucose 85 Calcium 8.3 L Total Bilirubin 0.3 AST 25 ALT 21 Alkaline Phosphatase 57 Total Protein 6.0 L Albumin 2.9 L <Reymundo Lee - 07/24/23 16:47> Laboratory Results - last 24 hr 07/24/23 05:04 WBC 7.4 RBC 3.63 L Hgb 10.8 L Hct 34.9 L MCV 96.1 MCH 29.8 MCHC 30.9 L RDW 13.7 Plt Count 302 MPV 9.1 Immature Gran % (Auto) 0.7 H Neut % (Auto) 71.0 Lymph % (Auto) 14.9 L [place] % (Auto) 10.1 H Eos % (Auto) 2.8 Baso % (Auto) 0.5 Lymph # (Auto) 1.11 [place] # (Auto) 0.8 H Eos # (Auto) 0.2 Baso # (Auto) 0.0 Abs Immat Gran (auto) 0.05 H Absolute Neuts (auto) 5.3 Absolute Nucleated RBC 0.000 Nucleated RBC % 0.0 Sodium 137 Potassium 3.9 Chloride 102 Carbon Dioxide 35 H Anion Gap 0 L BUN 11 Creatinine 0.60 L Estim Creat Clear Calc 39 Estimated GFR > 60 Glucose 85 Calcium 8.3 L Total Bilirubin 0.3 AST 25 ALT 21 Alkaline Phosphatase 57 Total Protein 6.0 L Albumin 2.9 L <Xiomy Griffin - 07/24/23 10:36>
[2023-07-24] MEDS: LETROZOLE (*CHEMO) 2.5 MG TABLET PO (11:31)
--- NOTE | 2023-07-24 15:15 | P.PNIM_ITS ---
Progress Note: A&P Assessment and Plan (1) Lung mass: Code(s): R91.8 - Other nonspecific abnormal finding of lung field Status: Acute Assessment and Plan: * CT showed coarse reticulonodular infiltrates of the upper lobes anteriorly which may be postinfectious/inflammatory, although malignancy is not excluded. There are cavitary changes in the right upper lobe with associated bronchiectasis. Consider correlation with pet/CT scan or short-term follow-up CT in 3 months. * Oncology following - outpatient PET scan (2) Weight loss: Code(s): R63.4 - Abnormal weight loss Status: Acute Assessment and Plan: * patient reports 30+ lb weight loss in past 3 months. 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 (3) UTI (urinary tract infection): Code(s): N39.0 - Urinary tract infection, site not specified Status: Acute Assessment and Plan: * abnormal UA on admission * will d/c Rocephin after last dose today * UA culture positive for Aerococcus urinae (4) Breast mass, right: Qualifiers: Breast mass location: lower outer quadrant Qualified Code(s): N63.13 - Unspecified lump in the right breast, lower outer quadrant Code(s): N63.10 - Unspecified lump in the right breast, unspecified quadrant Status: Acute Assessment and Plan: * CT showed heterogeneously enhancing right breast mass measuring up to 4 cm which abuts the skin surface. Recommend correlation with diagnostic mammogram and ultrasound. Oncology following, s/p: breast biopsy * starting on Femera while inpatient to continue at d/c * patient to follow up with oncology after d/c for further treatment (5) Left-sided weakness: Code(s): R53.1 - Weakness Status: Acute Assessment and Plan: -initiate fall precaution -check blood glucose q.4 -Brain MRI showed multiple small relatively acute infarcts extending in a paramedian sagittal oriented band along the right frontal and parietal lobes with a few additional small infarcts in the right temporal occipital region. The distribution at the watershed between the anterior, middle and posterior cerebral circulation suggests possible hypotensive etiology. -neurology consulted appreciate recommendation and plan -LDL 65 - hold off on statin -A1c 5.6 -echocardiogram with bubble unremarkable * Start ASA 81 mg daily, * Start Plavix 75 mg daily x3 weeks * Will need vascular referral given >50% stenosis on the same side of the stroke (6) Dysphagia: Code(s): R13.10 - Dysphagia, unspecified Status: Chronic Assessment and Plan: * GI consulted * Speech evaluated * She could underlying stricture or webbing due to chronic GERD. Reports hx of bleeding stomach ulcer several years ago at [facility], stopped Tagamet 1 year ago. * pantoprazole 40 mg b.i.d. * eating slow and chewing up food all the way. * Avoid NSAIDs * consider EGD outpatient * recommend follow-up in the office after discharge to follow up on the dysphagia. Subjective Date/time seen: 07/24/23 15:15 Interval history: Patient sitting up in bed this morning in no acute distress. She reports that she threw up her breakfast without nausea or abdominal pain. Oncology to follow up with patient regarding her breast biopsy today. Plan for d/c when placement at [facility] arranged. Review of Systems Review of Systems: All systems reviewed & are unremarkable except as noted in HPI and below Exam Narrative: GENERAL: ill appearing, thin and in no acute distress. HEAD: Normocephalic, atraumatic. EYES: PERRLA and EOMI. ENT: Mucous membranes moist. NECK: Supple. CHEST: Lung sounds clear to auscultation. HEART: RRR. No murmur heard. Normal peripheral pulses. ABDOMEN: Soft, nontender, nondistended, normal active bowel sounds. EXTREMITIES: Normal range of motion. No edema. SKIN: Warm, dry, no rash. NEURO: Alert and oriented x3. No focal deficits. PSYCH: Normal mood and affect. Objective Data Vital Signs Vital Signs: Vital Signs - 24 hr 07/23/23 18:27 07/23/23 20:00 07/23/23 20:10 Temperature 97.2 F L 96.9 F L Pulse Rate 102 H 86 Respiratory Rate 12 15 Blood Pressure 143/63 H 129/58 L Pulse Oximetry 99 97 97 Oxygen Delivery Nasal Cannula Oxygen Flow Rate 2 07/23/23 23:59 07/24/23 04:00 07/24/23 07:30 Temperature 97.0 F L 97.6 F 97.6 F Pulse Rate 80 81 79 Respiratory Rate 13 14 18 Blood Pressure 131/54 L 122/51 L 142/62 H Pulse Oximetry 99 99 97 Oxygen Delivery Oxygen Flow Rate 07/24/23 09:27 04/16/24 08:48 07/24/23 12:15 Temperature 97.6 F Pulse Rate 80 Respiratory Rate 18 Blood Pressure 148/59 H Pulse Oximetry 97 98 Oxygen Delivery Nasal Cannula Nasal Cannula Oxygen Flow Rate 2 2 07/24/23 14:30 Temperature 97.7 F Pulse Rate 89 Respiratory Rate 18 Blood Pressure 123/52 L Pulse Oximetry 97 Oxygen Delivery Oxygen Flow Rate Intake/Output Intake/Output: Intake & Output 07/21/23 07/22/23 07/23/23 07/24/23 23:59 23:59 23:59 23:59 Intake Total 990 1145 530 860 Output Total 150 300 Balance 840 845 530 860 Meds/Results Medications: Active Medications Generic Name Dose Route Start Last Admin Trade Name Freq PRN Reason Stop Dose Admin Acetaminophen 650 mg 07/18/23 19:57 07/20/23 21:21 Acetaminophen Elixir 325 Mg/10.15 Ml Udc PO 650 mg Q4H PRN Administration Mild Pain (1-3) or Fever Aspirin 81 mg 07/22/23 12:25 07/24/23 08:48 Aspirin 81 Mg Enteric Tablet PO 81 mg QAM GLEN Administration Bisacodyl 10 mg 07/20/23 10:09 07/23/23 14:03 Bisacodyl 10 Mg Suppository RECTAL 10 mg QAM PRN Administration Constipation Calcium Carbonate 200 mg 07/18/23 09:45 07/20/23 11:43 Calcium Carbonate (Tums) 500 Mg (200 Mg Elemental) PO 200 mg Q6H PRN Administration Indigestion Clopidogrel Bisulfate 75 mg 07/22/23 12:25 07/24/23 08:48 Clopidogrel Bisulfate 75 Mg Tablet PO 75 mg QAM GLEN Administration Letrozole 2.5 mg 07/24/23 09:00 07/24/23 11:31 Letrozole (*Chemo) 2.5 Mg Tablet PO 2.5 mg QAM GLEN Administration Magnesium Hydroxide 30 ml 07/23/23 09:00 07/24/23 08:49 Magnesium Hydroxide Susp 30 Ml Udc PO 30 ml QAM GLEN Administration Morphine Sulfate 2 mg 07/17/23 18:36 07/22/23 02:25 Morphine Sulfate (*Crx) 2 Mg/Ml Inj IV PUSH 2 mg Q2H PRN Administration Pain Rated 7-10 Multivitamins Therapeutic 1 tablet 07/18/23 09:00 07/24/23 08:48 Multivitamins Therapeutic Tab (*Bkc) PO 1 tablet DAILY GLEN Administration Ondansetron HCl 4 mg 07/17/23 18:36 07/20/23 02:12 Ondansetron Inj 4 Mg/2 Ml Vial IV PUSH 4 mg Q4H PRN Administration Nausea Pantoprazole Sodium 40 mg 07/23/23 09:00 07/24/23 08:48 Pantoprazole 40 Mg Tablet PO 40 mg Q12HR GLEN Administration Perflutren Lipid Microsphere 0 ml 07/21/23 16:01 Perflutren Lipid Microspheres 1.5 Ml Vial Diluted To 10 Ml Total Volume IV PUSH 07/24/23 16:01 ONCE PRN adequate visualization Protocol Polyethylene Glycol 17 gm 07/20/23 10:09 07/21/23 10:18 Polyethylene Glycol 3350 17 Gm Powd.Pack PO 17 gm QAM PRN Administration Constipation Radiology Results: ITS Impressions Chest X-Ray 07/17/23 16:02 Impression: 1: Bilateral interstitial infiltrates which may represent mild edema or pneumonia. 2: Emphysema. Chest/Abdomen/Pelvis CT 07/17/23 17:19 IMPRESSION: 1. Coarse reticulonodular infiltrates of the upper lobes anteriorly which may be postinfectious/inflammatory, although malignancy is not excluded. There are cavitary changes in the right upper lobe with associated bronchiectasis. Consider correlation with pet/CT scan or short-term follow-up CT in 3 months. Clinically correlate for history of malignancy. 2: Mediastinal lymphadenopathy, likely reactive. 3: Emphysema. 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 ADDENDUM: 07/19/23 1407 Addendum: There is an heterogeneously enhancing right breast mass measuring up to 4 cm which abuts the skin surface. Recommend correlation with diagnostic mammogram and ultrasound. Breast Core Needle Biopsy 07/19/23 12:27 IMPRESSION: Successful ultrasound guided biopsy of right 9:00 breast mass with biopsy marker placement. Please refer to pathology report for histologic analysis. Mammogram Diagnostic 07/19/23 12:27 IMPRESSION: Successful ultrasound guided biopsy of right 9:00 breast mass with biopsy marker placement. Please refer to pathology report for histologic analysis. Modified Barium Swallow 07/20/23 09:11 IMPRESSION: 1. Normal modified barium swallow. 2. Please refer to the speech therapy report for recommendations. Head CT 07/21/23 15:05 IMPRESSION: 1. Acute versus subacute infarct in the right frontoparietal region. Head/Neck CTA 07/21/23 16:53 IMPRESSION: 1. Acute versus subacute infarct in the right frontoparietal region. 2. No aneurysm or significant intracranial arterial stenosis. 3. 62% stenosis of the proximal right internal carotid artery relative to normal distal artery lumen diameter (NASCET criteria). 4. 0% stenosis of the proximal left internal carotid artery relative to normal distal artery lumen diameter. Brain MRI 07/22/23 12:40 IMPRESSION: 1. Multiple small relatively acute infarcts extending in a paramedian sagittal oriented band along the right frontal and parietal lobes with a few additional small infarcts in the right temporal occipital region. The distribution at the watershed between the anterior, middle and posterior cerebral circulation suggests possible hypotensive etiology. Abdomen X-Ray 07/23/23 15:01 IMPRESSION: No radiographic evidence of obstruction or ileus. Moderate volume of colonic feces, correlate for clinical findings of constipation. Labs Labs: Laboratory Results - last 24 hr 07/24/23 05:04 WBC 7.4 RBC 3.63 L Hgb 10.8 L Hct 34.9 L MCV 96.1 MCH 29.8 MCHC 30.9 L RDW 13.7 Plt Count 302 MPV 9.1 Immature Gran % (Auto) 0.7 H Neut % (Auto) 71.0 Lymph % (Auto) 14.9 L [place] % (Auto) 10.1 H Eos % (Auto) 2.8 Baso % (Auto) 0.5 Lymph # (Auto) 1.11 [place] # (Auto) 0.8 H Eos # (Auto) 0.2 Baso # (Auto) 0.0 Abs Immat Gran (auto) 0.05 H Absolute Neuts (auto) 5.3 Absolute Nucleated RBC 0.000 Nucleated RBC % 0.0 Sodium 137 Potassium 3.9 Chloride 102 Carbon Dioxide 35 H Anion Gap 0 L BUN 11 Creatinine 0.60 L Estim Creat Clear Calc 39 Estimated GFR > 60 Glucose 85 Calcium 8.3 L Total Bilirubin 0.3 AST 25 ALT 21 Alkaline Phosphatase 57 Total Protein 6.0 L Albumin 2.9 L Quality VTE Prophylaxis VTE prophylaxis: mechanical ordered
--- NOTE | 2023-07-24 17:12 | WPDGIPROGNO ---
Progress Note: A&P Assessment and Plan (1) Dysphagia: Code(s): R13.10 - Dysphagia, unspecified Status: Chronic Assessment and Plan: known esophageal ring, she prefers to have EGD since had another episode this morning will set up for tomorrow and assess if needs dilatation (2) Breast cancer: Code(s): C50.919 - Malignant neoplasm of unspecified site of unspecified female breast Status: Acute Assessment and Plan: confirmed by bx, ? met to lungs will complete PET scan as outpatient, by oncology team (3) Nausea: Code(s): R11.0 - Nausea Status: Acute (4) Stroke: Code(s): I63.9 - Cerebral infarction, unspecified Status: Acute (5) Weight loss: Code(s): R63.4 - Abnormal weight loss Status: Acute (6) Lung mass: Code(s): R91.8 - Other nonspecific abnormal finding of lung field Status: Acute Subjective Date/time seen: 07/24/23 17:12 Interval history: generalized weakness, today when having breakfast piece of pancake got stuck and had to throw it up, then she was able to keep eating but still poor appetite finally had BM and constipation relieved she prefers to have EGD while she is in the hospital, hoping to be discharged to [facility] Review of Systems Review of Systems: All systems reviewed & are unremarkable except as noted in HPI and below Exam Const: General: comfortable and no acute distress Other: thin appearing HENMT: Face/Nose/Sinus: Normal nares present Other: has nasal cannula in place with oxygen. Eyes: General: appearance normal, both eyes and all related structures Neck: Neck: supple and no JVD Resp: Auscultation: diminished lung sounds Other: course cough noted during exam Cardio: Rate: regular rate Rhythm: regular rhythm GI: Inspection: non-distended GI Palp: Yes Soft to palpation, No Tenderness to palpation present (GI) and No Guarding due to palpation present (GI) Auscultation: normal bowel sounds Skin: General skin exam: normal color Neuro: Speech: normal speech Extrem: General: normal to inspection Psych: Mental Status: mental status grossly normal Objective Data Vital Signs Vital Signs: Vital Signs - 24 hr 07/23/23 18:27 07/23/23 20:00 07/23/23 20:10 Temperature 97.2 F L 96.9 F L Pulse Rate 102 H 86 Respiratory Rate 12 15 Blood Pressure 143/63 H 129/58 L Pulse Oximetry 99 97 97 Oxygen Delivery Nasal Cannula Oxygen Flow Rate 2 07/23/23 23:59 07/24/23 04:00 07/24/23 07:30 Temperature 97.0 F L 97.6 F 97.6 F Pulse Rate 80 81 79 Respiratory Rate 13 14 18 Blood Pressure 131/54 L 122/51 L 142/62 H Pulse Oximetry 99 99 97 Oxygen Delivery Oxygen Flow Rate 07/24/23 09:27 07/24/23 08:48 07/24/23 12:15 Temperature 97.6 F Pulse Rate 80 Respiratory Rate 18 Blood Pressure 148/59 H Pulse Oximetry 97 98 Oxygen Delivery Nasal Cannula Nasal Cannula Oxygen Flow Rate 2 2 07/24/23 14:30 Temperature 97.7 F Pulse Rate 89 Respiratory Rate 18 Blood Pressure 123/52 L Pulse Oximetry 97 Oxygen Delivery Oxygen Flow Rate Intake/Output Intake/Output: Intake & Output 07/21/23 07/22/23 07/23/23 07/24/23 23:59 23:59 23:59 23:59 Intake Total 990 1145 530 860 Output Total 150 300 Balance 840 845 530 860 Meds/Results Medications: Active Medications Generic Name Dose Route Start Last Admin Trade Name Freq PRN Reason Stop Dose Admin Acetaminophen 650 mg 07/18/23 19:57 07/20/23 21:21 Acetaminophen Elixir 325 Mg/10.15 Ml Udc PO 650 mg Q4H PRN Administration Mild Pain (1-3) or Fever Aspirin 81 mg 07/22/23 12:25 07/24/23 08:48 Aspirin 81 Mg Enteric Tablet PO 81 mg QAM GLEN Administration Bisacodyl 10 mg 07/20/23 10:09 07/23/23 14:03 Bisacodyl 10 Mg Suppository RECTAL 10 mg QAM PRN Administration Constipation Calcium Carbonate 200 mg 07/18/23 09:45 07/20/23 11:43 Calcium Carbonate (Tums) 500 Mg (200 Mg Elemental) PO 200 mg Q6H PRN Administration Indigestion Clopidogrel Bisulfate 75 mg 07/22/23 12:25 07/24/23 08:48 Clopidogrel Bisulfate 75 Mg Tablet PO 75 mg QAM GLEN Administration Letrozole 2.5 mg 07/24/23 09:00 07/24/23 11:31 Letrozole (*Chemo) 2.5 Mg Tablet PO 2.5 mg QAM GLEN Administration Magnesium Hydroxide 30 ml 07/23/23 09:00 07/24/23 08:49 Magnesium Hydroxide Susp 30 Ml Udc PO 30 ml QAM GLEN Administration Morphine Sulfate 2 mg 07/17/23 18:36 07/22/23 02:25 Morphine Sulfate (*Crx) 2 Mg/Ml Inj IV PUSH 2 mg Q2H PRN Administration Pain Rated 7-10 Multivitamins Therapeutic 1 tablet 07/18/23 09:00 07/24/23 08:48 Multivitamins Therapeutic Tab (*Bkc) PO 1 tablet DAILY GLEN Administration Ondansetron HCl 4 mg 07/17/23 18:36 07/20/23 02:12 Ondansetron Inj 4 Mg/2 Ml Vial IV PUSH 4 mg Q4H PRN Administration Nausea Pantoprazole Sodium 40 mg 07/23/23 09:00 07/24/23 08:48 Pantoprazole 40 Mg Tablet PO 40 mg Q12HR GLEN Administration Polyethylene Glycol 17 gm 07/20/23 10:09 07/21/23 10:18 Polyethylene Glycol 3350 17 Gm Powd.Pack PO 17 gm QAM PRN Administration Constipation Radiology Results: ITS Impressions Chest X-Ray 07/17/23 16:02 Impression: 1: Bilateral interstitial infiltrates which may represent mild edema or pneumonia. 2: Emphysema. Chest/Abdomen/Pelvis CT 07/17/23 17:19 IMPRESSION: 1. Coarse reticulonodular infiltrates of the upper lobes anteriorly which may be postinfectious/inflammatory, although malignancy is not excluded. There are cavitary changes in the right upper lobe with associated bronchiectasis. Consider correlation with pet/CT scan or short-term follow-up CT in 3 months. Clinically correlate for history of malignancy. 2: Mediastinal lymphadenopathy, likely reactive. 3: Emphysema. 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 ADDENDUM: 07/19/23 7150 Addendum: There is an heterogeneously enhancing right breast mass measuring up to 4 cm which abuts the skin surface. Recommend correlation with diagnostic mammogram and ultrasound. Breast Core Needle Biopsy 07/19/23 12:27 IMPRESSION: Successful ultrasound guided biopsy of right 9:00 breast mass with biopsy marker placement. Please refer to pathology report for histologic analysis. Mammogram Diagnostic 07/19/23 12:27 IMPRESSION: Successful ultrasound guided biopsy of right 9:00 breast mass with biopsy marker placement. Please refer to pathology report for histologic analysis. Modified Barium Swallow 07/20/23 09:11 IMPRESSION: 1. Normal modified barium swallow. 2. Please refer to the speech therapy report for recommendations. Head CT 07/21/23 15:05 IMPRESSION: 1. Acute versus subacute infarct in the right frontoparietal region. Head/Neck CTA 07/21/23 16:53 IMPRESSION: 1. Acute versus subacute infarct in the right frontoparietal region. 2. No aneurysm or significant intracranial arterial stenosis. 3. 62% stenosis of the proximal right internal carotid artery relative to normal distal artery lumen diameter (NASCET criteria). 4. 0% stenosis of the proximal left internal carotid artery relative to normal distal artery lumen diameter. Brain MRI 07/22/23 12:40 IMPRESSION: 1. Multiple small relatively acute infarcts extending in a paramedian sagittal oriented band along the right frontal and parietal lobes with a few additional small infarcts in the right temporal occipital region. The distribution at the watershed between the anterior, middle and posterior cerebral circulation suggests possible hypotensive etiology. Abdomen X-Ray 07/23/23 15:01 IMPRESSION: No radiographic evidence of obstruction or ileus. Moderate volume of colonic feces, correlate for clinical findings of constipation. Labs Labs: Laboratory Results - last 24 hr 07/24/23 05:04 WBC 7.4 RBC 3.63 L Hgb 10.8 L Hct 34.9 L MCV 96.1 MCH 29.8 MCHC 30.9 L RDW 13.7 Plt Count 302 MPV 9.1 Immature Gran % (Auto) 0.7 H Neut % (Auto) 71.0 Lymph % (Auto) 14.9 L [place] % (Auto) 10.1 H Eos % (Auto) 2.8 Baso % (Auto) 0.5 Lymph # (Auto) 1.11 [place] # (Auto) 0.8 H Eos # (Auto) 0.2 Baso # (Auto) 0.0 Abs Immat Gran (auto) 0.05 H Absolute Neuts (auto) 5.3 Absolute Nucleated RBC 0.000 Nucleated RBC % 0.0 Sodium 137 Potassium 3.9 Chloride 102 Carbon Dioxide 35 H Anion Gap 0 L BUN 11 Creatinine 0.60 L Estim Creat Clear Calc 39 Estimated GFR > 60 Glucose 85 Calcium 8.3 L Total Bilirubin 0.3 AST 25 ALT 21 Alkaline Phosphatase 57 Total Protein 6.0 L Albumin 2.9 L Amg Follow-up Billing [facility] Follow-up Hospital Follow-up: [id number] [facility]
[2023-07-25] VITALS (13 sets, daily range): BP systolic 117–159; BP diastolic 51–72; PULSE 75–83; RESP 17–28; TEMP 36.1–36.9; O2SAT 91–98
[2023-07-25 04:39] LABS: CA 15-3 66 U/mL (<32)
[2023-07-25 05:38] LABS: Basophils Percent Auto 0.7 % (0.2-1.2); Eosinophils Absolute Auto 0.2 K/mm3 (0-0.3); Eosinophils Percent Auto 3.5 % (0-4.4); Hematocrit 36.7 % (37.0-47.0); Hemoglobin 11.3 g/dL (12.0-15.0); Immature Granulocyte Absolute 0.05 K/mm3 (0.00-0.031); Immature Granulocyte Percent A 0.8 % (0-0.5); Lymphocytes Absolute Auto 1.09 K/mm3 (0.9-3.2); Lymphocytes Percent Auto 18.4 % (18.3-44.2); Mean Corpuscular HGB Conc 30.8 g/dl (32-36); Mean Corpuscular Hemoglobin 29.8 pg (26-34); Mean Corpuscular Volume 96.8 fl (80-100); Monocytes Absolute Auto 0.7 K/mm3 (0.1-0.6); Monocytes Percent Auto 11.7 % (2.6-8.5); Neutrophils Absolute Auto 3.8 K/mm3 (1.3-6.7); Neutrophils Percent Auto 64.9 % (45.5-73.1); Platelet Count Result 335 k/mm3 (150-375); Red Blood Count 3.79 M/mm3 (4.2-5.4); Red Cell Distribution Width 13.8 % (11.5-14.5); White Blood Count 5.9 K/mm3 (4.5-10.0)
[2023-07-25 05:52] LABS: Alanine Aminotransferase 23 U/L (6-35); Albumin Level 3.1 g/dL (3.5-5.1); Alkaline Phosphatase 62 U/L (38-126); Anion Gap -1 mmol/L (4-12); Aspartate Amino Transferase 31 U/L (14-36); Bilirubin,Total 0.4 mg/dL (0.2-1.3); Blood Urea Nitrogen 11 mg/dL (7-17); Calcium 8.5 mg/dL (8.4-10.2); Carbon Dioxide 35 mmol/L (22-30); Chloride 102 mmol/L (98-107); Estimated CRCL calculation 39 ml/min; Estimated Glomerular Filt Rate > 60; Glucose 89 mg/dL (65-110); Sodium 136 mmol/L (137-145)
--- NOTE | 2023-07-25 07:02 | P.PNIM_ITS ---
Progress Note: A&P Assessment and Plan (1) Lung mass: Code(s): R91.8 - Other nonspecific abnormal finding of lung field Status: Acute Assessment and Plan: * CT showed coarse reticulonodular infiltrates of the upper lobes anteriorly which may be postinfectious/inflammatory, although malignancy is not excluded. There are cavitary changes in the right upper lobe with associated bronchiectasis. Consider correlation with pet/CT scan or short-term follow-up CT in 3 months. * Oncology following - outpatient PET scan 07/24: On oxygen now as new requirement. 1-2 L NC. (2) Weight loss: Code(s): R63.4 - Abnormal weight loss Status: Acute Assessment and Plan: * patient reports 30+ lb weight loss in past 3 months. * global transportation manager consulted (3) UTI (urinary tract infection): Code(s): N39.0 - Urinary tract infection, site not specified Status: Acute Assessment and Plan: * abnormal UA on admission * will d/c Rocephin after last dose today * UA culture positive for Aerococcus urinae (4) Breast mass, right: Qualifiers: Breast mass location: lower outer quadrant Qualified Code(s): N63.13 - Unspecified lump in the right breast, lower outer quadrant Code(s): N63.10 - Unspecified lump in the right breast, unspecified quadrant Status: Acute Assessment and Plan: * CT showed heterogeneously enhancing right breast mass measuring up to 4 cm which abuts the skin surface. Recommend correlation with diagnostic mammogram and ultrasound. Invasive ductal carcinoma per pathology report. Oncology following, s/p: breast biopsy * starting on Femera while inpatient to continue at d/c * patient to follow up with oncology after d/c for further treatment (5) Left-sided weakness: Code(s): R53.1 - Weakness Status: Acute Assessment and Plan: -initiate fall precaution -check blood glucose q.4 -Brain MRI showed multiple small relatively acute infarcts extending in a paramedian sagittal oriented band along the right frontal and parietal lobes with a few additional small infarcts in the right temporal occipital region. The distribution at the watershed between the anterior, middle and posterior cerebr al circulation suggests possible hypotensive etiology. -neurology consulted appreciate recommendation and plan -LDL 65 - hold off on statin -A1c 5.6 -echocardiogram with bubble unremarkable * Start ASA 81 mg daily, * Start Plavix 75 mg daily x3 weeks * Will need vascular referral given >50% stenosis on the same side of the stroke (6) Dysphagia: Code(s): R13.10 - Dysphagia, unspecified Status: Chronic Assessment and Plan: * GI consulted * Speech evaluated * She could underlying stricture or webbing due to chronic GERD. Reports hx of bleeding stomach ulcer several years ago at [facility], stopped Tagamet 1 year ago. * pantoprazole 40 mg b.i.d. * eating slow and chewing up food all the way. * Avoid NSAIDs * consider EGD outpatient * recommend follow-up in the office after discharge to follow up on the dysphagia. Plan EGD today Pending SNF placement Subjective Date/time seen: 07/25/23 07:02 Interval history: This is an 88 year old female with no significant PMH is here with dysphagia and incidental findings of breast cancer with possible lung involvement. She has undergone a breast biopsy and oncology is following. She is going for an EGD today for persistent dysphagia symptoms. Interval history: 07/24: Patient is seen sitting up in chair in no acute distress wearing 1 L nasal cannula. She is NPO for an EGD today. After her EGD she will be able to be discharged to her facility. She has no complaints at this time other than feeling tired and hungry. Review of Systems Review of Systems: All systems reviewed & are unremarkable except as noted in HPI and below Exam Narrative: General: chronically ill appearing, thin, frail, appears stated age. HEENT: normocephalic, atraumatic. Mucous membranes moist. EOMI, PERRLA, bilateral sclera anicteric, no conjunctival injection. Neck supple without JVD, lymphadenopathy, or bruit. Respiratory: clear to auscultation bilaterally. No rales/rhonic/wheezes. Cardiovascular: Regular rate and rhythm, normal S1-S2 upon auscultation. No murmurs, rubs, or clicks. PMI is nondisplaced, capillary re-fill less than 3 second. Abdomen: Soft, flat, no pulsatile masses, non-distended and non-tender. No rebound, no guarding. No CVA tenderness, no hepatosplenomegaly. Bowel sounds present to all four quadrants. No high pitch or tinkling sounds, resonant to percussion. Extremities: No cyanosis, clubbing, or edema present. Pulses are palpable 2/2. Active ROM to all four extremities. Neuro: Alert and orientated x 4. PERRLA. Cranial nerves 2-12 intact without focal deficit. Skin: Warm, dry, and intact, without rash, erythema, or lesion. Thin skin. Lines: PIV Incisions: NA Psych: pleasant, cooperative, normal speech, normal affect, no hallucinations, no dysarthria Objective Data Vital Signs Vital Signs: Vital Signs - 24 hr 07/24/23 07:30 07/24/23 09:27 07/24/23 08:48 Temperature 97.6 F Pulse Rate 79 Respiratory Rate 18 Blood Pressure 142/62 H Pulse Oximetry 97 97 Oxygen Delivery Nasal Cannula Nasal Cannula Oxygen Flow Rate 2 2 07/24/23 12:15 07/24/23 14:30 07/24/23 18:04 Temperature 97.6 F 97.7 F 98.1 F Pulse Rate 80 89 85 Respiratory Rate 18 18 16 Blood Pressure 148/59 H 123/52 L 143/54 H Pulse Oximetry 98 97 98 Oxygen Delivery Oxygen Flow Rate 07/24/23 20:00 07/24/23 20:00 07/25/23 00:00 Temperature 97.6 F 97.7 F Pulse Rate 83 83 Respiratory Rate 17 17 Blood Pressure 142/67 H 123/63 Pulse Oximetry 98 98 97 Oxygen Delivery Nasal Cannula Oxygen Flow Rate 2 07/25/23 04:00 Temperature 97.0 F L Pulse Rate 80 Respiratory Rate 19 Blood Pressure 142/57 H Pulse Oximetry 98 Oxygen Delivery Oxygen Flow Rate Intake/Output Intake/Output: Intake & Output 07/22/23 07/23/23 07/24/23 07/25/23 23:59 23:59 23:59 23:59 Intake Total 1145 530 910 Output Total 300 Balance 845 530 910 Meds/Results Medications: Active Medications Generic Name Dose Route Start Last Admin Trade Name Freq PRN Reason Stop Dose Admin Acetaminophen 650 mg 07/18/23 19:57 07/20/23 21:21 Acetaminophen Elixir 325 Mg/10.15 Ml Udc PO 650 mg Q4H PRN Administration Mild Pain (1-3) or Fever Aspirin 81 mg 07/22/23 12:25 07/24/23 08:48 Aspirin 81 Mg Enteric Tablet PO 81 mg QAM GLEN Administration Bisacodyl 10 mg 07/20/23 10:09 07/23/23 14:03 Bisacodyl 10 Mg Suppository RECTAL 10 mg QAM PRN Administration Constipation Calcium Carbonate 200 mg 07/18/23 09:45 07/20/23 11:43 Calcium Carbonate (Tums) 500 Mg (200 Mg Elemental) PO 200 mg Q6H PRN Administration Indigestion Clopidogrel Bisulfate 75 mg 07/22/23 12:25 07/24/23 08:48 Clopidogrel Bisulfate 75 Mg Tablet PO 75 mg QAM GLEN Administration Letrozole 2.5 mg 07/24/23 09:00 07/24/23 11:31 Letrozole (*Chemo) 2.5 Mg Tablet PO 2.5 mg QAM GLEN Administration Magnesium Hydroxide 30 ml 07/23/23 09:00 07/24/23 08:49 Magnesium Hydroxide Susp 30 Ml Udc PO 30 ml QAM GLEN Administration Morphine Sulfate 2 mg 07/17/23 18:36 07/22/23 02:25 Morphine Sulfate (*Crx) 2 Mg/Ml Inj IV PUSH 2 mg Q2H PRN Administration Pain Rated 7-10 Multivitamins Therapeutic 1 tablet 07/18/23 09:00 07/24/23 08:48 Multivitamins Therapeutic Tab (*Bkc) PO 1 tablet DAILY GLEN Administration Ondansetron HCl 4 mg 07/17/23 18:36 07/20/23 02:12 Ondansetron Inj 4 Mg/2 Ml Vial IV PUSH 4 mg Q4H PRN Administration Nausea Pantoprazole Sodium 40 mg 07/23/23 09:00 07/24/23 20:54 Pantoprazole 40 Mg Tablet PO 40 mg Q12HR GLEN Administration Polyethylene Glycol 17 gm 07/20/23 10:09 07/21/23 10:18 Polyethylene Glycol 3350 17 Gm Powd.Pack PO 17 gm QAM PRN Administration Constipation Radiology Results: ITS Impressions Chest X-Ray 07/17/23 16:02 Impression: 1: Bilateral interstitial infiltrates which may represent mild edema or pneumonia. 2: Emphysema. Chest/Abdomen/Pelvis CT 07/17/23 17:19 IMPRESSION: 1. Coarse reticulonodular infiltrates of the upper lobes anteriorly which may be postinfectious/inflammatory, although malignancy is not excluded. There are cavitary changes in the right upper lobe with associated bronchiectasis. Consider correlation with pet/CT scan or short-term follow-up CT in 3 months. Clinically correlate for history of malignancy. 2: Mediastinal lymphadenopathy, likely reactive. 3: Emphysema. 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 ADDENDUM: 07/19/23 1407 Addendum: There is an heterogeneously enhancing right breast mass measuring up to 4 cm which abuts the skin surface. Recommend correlation with diagnostic mammogram and ultrasound. Breast Core Needle Biopsy 07/19/23 12:27 IMPRESSION: Successful ultrasound guided biopsy of right 9:00 breast mass with biopsy marker placement. Please refer to pathology report for histologic analysis. Mammogram Diagnostic 07/19/23 12:27 IMPRESSION: Successful ultrasound guided biopsy of right 9:00 breast mass with biopsy marker placement. Please refer to pathology report for histologic analysis. Modified Barium Swallow 07/20/23 09:11 IMPRESSION: 1. Normal modified barium swallow. 2. Please refer to the speech therapy report for recommendations. Head CT 07/21/23 15:05 IMPRESSION: 1. Acute versus subacute infarct in the right frontoparietal region. Head/Neck CTA 07/21/23 16:53 IMPRESSION: 1. Acute versus subacute infarct in the right frontoparietal region. 2. No aneurysm or significant intracranial arterial stenosis. 3. 62% stenosis of the proximal right internal carotid artery relative to normal distal artery lumen diameter (NASCET criteria). 4. 0% stenosis of the proximal left internal carotid artery relative to normal distal artery lumen diameter. Brain MRI 07/22/23 12:40 IMPRESSION: 1. Multiple small relatively acute infarcts extending in a paramedian sagittal oriented band along the right frontal and parietal lobes with a few additional small infarcts in the right temporal occipital region. The distribution at the watershed between the anterior, middle and posterior cerebral circulation suggests possible hypotensive etiology. Abdomen X-Ray 07/23/23 15:01 IMPRESSION: No radiographic evidence of obstruction or ileus. Moderate volume of colonic feces, correlate for clinical findings of constipation. Labs Labs: Laboratory Results - last 24 hr 07/19/23 07/25/23 05:07 04:56 WBC 5.9 RBC 3.79 L Hgb 11.3 L Hct 36.7 L MCV 96.8 MCH 29.8 MCHC 30.8 L RDW 13.8 Plt Count 335 MPV 9.0 Immature Gran % (Auto) 0.8 H Neut % (Auto) 64.9 Lymph % (Auto) 18.4 [place] % (Auto) 11.7 H Eos % (Auto) 3.5 Baso % (Auto) 0.7 Lymph # (Auto) 1.09 [place] # (Auto) 0.7 H Eos # (Auto) 0.2 Baso # (Auto) 0.0 Abs Immat Gran (auto) 0.05 H Absolute Neuts (auto) 3.8 Absolute Nucleated RBC 0.000 Nucleated RBC % 0.0 Sodium 136 L Potassium 4.0 Chloride 102 Carbon Dioxide 35 H Anion Gap -1 L BUN 11 Creatinine 0.60 L Estim Creat Clear Calc 39 Estimated GFR > 60 Glucose 89 Calcium 8.5 Total Bilirubin 0.4 AST 31 ALT 23 Alkaline Phosphatase 62 Total Protein 6.0 L Albumin 3.1 L CA 15-3 Antigen 66 H Quality VTE Prophylaxis VTE prophylaxis: mechanical ordered
[2023-07-25] MEDS: CLOPIDOGREL BISULFATE 75 MG TABLET PO (08:31)
[2023-07-25] MEDS: LETROZOLE (*CHEMO) 2.5 MG TABLET PO (08:31)
[2023-07-25] MEDS: MULTIVITAMINS THERAPEUTIC TAB (*BKC) 1 TABLET PO (08:31)
[2023-07-25] MEDS: ASPIRIN 81 MG ENTERIC TABLET PO (08:31)
[2023-07-25] MEDS: PANTOPRAZOLE 40 MG TABLET PO (08:31)
[2023-07-25] MEDS: LACTATED RINGERS 1,000 ML 150 ML IV CONT (10:52)
--- NOTE | 2023-07-25 11:23 | WPDANESEPPF ---
Anes - Initial Pre Proc Eval Procedure: Operation Date: 07/25/23 13:30 Proposed Procedures p Esophagogastroduodenoscopy - Juan Dong MD Date/Time: 07/25/23 11:23 Surgeon: Niranjan Carlton DO Pre Op Diagnosis: Lung mass Patient Data Age: 88 Gender: F Height: 1.63 m Weight: 43.7 kg Last Vital Signs Temp 97.3 F L 07/25/23 10:54 Pulse 77 07/25/23 10:54 Resp 18 07/25/23 10:54 BP 153/69 H 07/25/23 10:54 Pulse Ox 95 07/25/23 10:54 O2 Del Method Room Air 07/25/23 10:54 O2 Flow Rate 1 07/25/23 08:30 FiO2 28 07/25/23 08:30 Allergies Allergy/AdvReac Type Severity Reaction Status Date / Time No Known Allergies Allergy Unverified 08/18/15 14:44 Home Medications Medication Instructions Recorded Confirmed Type multivitamin 1 tablet PO DAILY 07/17/23 07/17/23 History Laboratory Tests 07/19/23 07/25/23 05:07 04:56 WBC 5.9 K/mm3 (4.5-10.0) RBC 3.79 L M/mm3 (4.2-5.4) Hgb 11.3 L g/dL (12.0-15.0) Hct 36.7 L % (37.0-47.0) MCV 96.8 fl (80-100) MCH 29.8 pg (26-34) MCHC 30.8 L g/dl (32-36) RDW 13.8 % (11.5-14.5) Plt Count 335 k/mm3 (150-375) MPV 9.0 fl (7.4-10.4) Immature Gran % (Auto) 0.8 H % (0-0.5) Neut % (Auto) 64.9 % (45.5-73.1) Lymph % (Auto) 18.4 % (18.3-44.2) [place] % (Auto) 11.7 H % (2.6-8.5) Eos % (Auto) 3.5 % (0-4.4) Baso % (Auto) 0.7 % (0.2-1.2) Lymph # (Auto) 1.09 K/mm3 (0.9-3.2) [place] # (Auto) 0.7 H K/mm3 (0.1-0.6) Eos # (Auto) 0.2 K/mm3 (0-0.3) Baso # (Auto) 0.0 K/mm3 (0.0-0.1) Abs Immat Gran (auto) 0.05 H K/mm3 (0.00-0.031) Absolute Neuts (auto) 3.8 K/mm3 (1.3-6.7) Absolute Nucleated RBC 0.000 K/mm3 (0.0-0.012) Nucleated RBC % 0.0 % (0.0-0.2) Sodium 136 L mmol/L (137-145) Potassium 4.0 mmol/L (3.4-5.0) Chloride 102 mmol/L (98-107) Carbon Dioxide 35 H mmol/L (22-30) Anion Gap -1 L mmol/L (4-12) BUN 11 mg/dL (7-17) Creatinine 0.60 L mg/dL (0.7-1.0) Estim Creat Clear Calc 39 ml/min Estimated GFR > 60 (59 - ) Glucose 89 mg/dL (65-110) Calcium 8.5 mg/dL (8.4-10.2) Total Bilirubin 0.4 mg/dL (0.2-1.3) AST 31 U/L (14-36) ALT 23 U/L (6-35) Alkaline Phosphatase 62 U/L (38-126) Total Protein 6.0 L g/dL (6.3-8.2) Albumin 3.1 L g/dL (3.5-5.1) CA 15-3 Antigen 66 H U/mL (<32) Patient hx anesthesia problems: none Family hx anesthesia problems: none Results Review: All pre-operative results and documents have been reviewed as part of the pre-operative evaluation. [facility] Past Medical History Medical History (Updated 07/24/23 @ 17:14 by Juan Dong MD) Breast cancer Social History Social History Smoking packs per day: 0.5 Smoking cigarettes per day: 10.0 Smoking status: Current every day smoker Tobacco type: cigarettes Second hand tobacco smoke exposure: Yes Alcohol intake: never Substance use: never Substance use type: does not use Do You Feel Safe in your Home?: Yes Lack of Transportation: No Lack of Food: Never True Current Housing: I Have Housing Concerned About Future Housing: No Difficulty Paying Gas/Electric Bills: No Difficulty Paying for Meds: No Currently Unemployed: No Education: High School Diploma/GED Difficulty w/ Childcare or Family Care: No Spiritual care concerns: No Anes - Eval Final PreProcedure Day of Procedure 07/25/23 11:23 Patient weight: normal Heart: regular rate and rhythm Lungs: clear to auscultation Airway: Mallampati scale class II Neurological: alert and oriented Last oral intake: >/= 8 hours ASA classification: III Emergent: no Anesthetic plan: proceed Anesthesia type and monitoring: general GIVS and standard monitoring Results Review: All pre-operative results and documents have been reviewed as part of the pre-operative evaluation. Informed Consent: The patient's anesthetic plan and its attendant risks and benefits were discussed with the patient/family/POA. Questions were solicited and answers provided to the satisfaction of the patient/family/POA.
[2023-07-25] MEDS: MAGNESIUM HYDROXIDE SUSP 30 ML UDC PO (15:31)
[2023-07-25] MEDS: BISACODYL 10 MG SUPPOSITORY RECTAL (15:31)
[2023-07-25 17:30] LABS: Cholesterol 116 mg/dL (0-200); HDL Direct 38 mg/dL; Triglycerides 74 mg/dL (<150)
[2023-07-25 17:41] LABS: LDL Cholesterol Direct 68 mg/dL
[2023-07-25] MEDS: ONDANSETRON INJ 4 MG/2 ML VIAL IV PUSH (19:57)
[2023-07-26] VITALS: BP 131/65; PULSE 82; RESP 18; TEMP 36.4; O2SAT 90
[2023-07-26] MEDS: ACETAMINOPHEN ELIXIR 325 MG/10.15 ML UDC 650 MG PO (03:42)
[2023-07-26 04:00] VITALS: BP 99/49; PULSE 81; RESP 18; TEMP 36.2; O2SAT 90
[2023-07-26 05:49] VITALS: BP 118/50; PULSE 70; RESP 18; TEMP 37.1; O2SAT 91
[2023-07-26 06:16] LABS: Basophils Percent Auto 0.7 % (0.2-1.2); Eosinophils Absolute Auto 0.2 K/mm3 (0-0.3); Eosinophils Percent Auto 2.9 % (0-4.4); Hematocrit 36.4 % (37.0-47.0); Hemoglobin 11.4 g/dL (12.0-15.0); Immature Granulocyte Absolute 0.03 K/mm3 (0.00-0.031); Immature Granulocyte Percent A 0.5 % (0-0.5); Lymphocytes Absolute Auto 1.05 K/mm3 (0.9-3.2); Mean Corpuscular HGB Conc 31.3 g/dl (32-36); Mean Corpuscular Hemoglobin 29.9 pg (26-34); Mean Corpuscular Volume 95.5 fl (80-100); Monocytes Absolute Auto 0.6 K/mm3 (0.1-0.6); Monocytes Percent Auto 9.8 % (2.6-8.5); Neutrophils Percent Auto 68.1 % (45.5-73.1); Platelet Count Result 351 k/mm3 (150-375); Red Blood Count 3.81 M/mm3 (4.2-5.4); Red Cell Distribution Width 13.7 % (11.5-14.5); White Blood Count 5.8 K/mm3 (4.5-10.0)
[2023-07-26 06:28] LABS: Alanine Aminotransferase 25 U/L (6-35); Albumin Level 3.1 g/dL (3.5-5.1); Alkaline Phosphatase 60 U/L (38-126); Anion Gap 1 mmol/L (4-12); Aspartate Amino Transferase 34 U/L (14-36); Bilirubin,Total 0.3 mg/dL (0.2-1.3); Blood Urea Nitrogen 14 mg/dL (7-17); Calcium 8.7 mg/dL (8.4-10.2); Carbon Dioxide 32 mmol/L (22-30); Chloride 104 mmol/L (98-107); Estimated CRCL calculation 34 ml/min; Estimated Glomerular Filt Rate > 60; Glucose 94 mg/dL (65-110); Sodium 137 mmol/L (137-145)
--- NOTE | 2023-07-26 06:56 | P.PNIM_ITS ---
Progress Note: A&P Assessment and Plan (1) Lung mass: Code(s): R91.8 - Other nonspecific abnormal finding of lung field Status: Acute Assessment and Plan: * CT showed coarse reticulonodular infiltrates of the upper lobes anteriorly which may be postinfectious/inflammatory, although malignancy is not excluded. There are cavitary changes in the right upper lobe with associated bronchiectasis. Consider correlation with pet/CT scan or short-term follow-up CT in 3 months. * Oncology following - outpatient PET scan 07/24: On oxygen now as new requirement. 1-2 L NC. (2) Weight loss: Code(s): R63.4 - Abnormal weight loss Status: Acute Assessment and Plan: * patient reports 30+ lb weight loss in past 3 months. * weapons electrical engineering officer consulted (3) UTI (urinary tract infection): Code(s): N39.0 - Urinary tract infection, site not specified Status: Acute Assessment and Plan: * abnormal UA on admission * will d/c Rocephin after last dose today * UA culture positive for Aerococcus urinae (4) Breast mass, right: Qualifiers: Breast mass location: lower outer quadrant Qualified Code(s): N63.13 - Unspecified lump in the right breast, lower outer quadrant Code(s): N63.10 - Unspecified lump in the right breast, unspecified quadrant Status: Acute Assessment and Plan: * CT showed heterogeneously enhancing right breast mass measuring up to 4 cm which abuts the skin surface. Recommend correlation with diagnostic mammogram and ultrasound. Invasive ductal carcinoma per pathology report. Oncology following, s/p: breast biopsy * starting on Femera while inpatient to continue at d/c * patient to follow up with oncology after d/c for further treatment (5) Left-sided weakness: Code(s): R53.1 - Weakness Status: Acute Assessment and Plan: -initiate fall precaution -check blood glucose q.4 -Brain MRI showed multiple small relatively acute infarcts extending in a paramedian sagittal oriented band along the right frontal and parietal lobes with a few additional small infarcts in the right temporal occipital region. The distribution at the watershed between the anterior, middle and posterior cerebr al circulation suggests possible hypotensive etiology. 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 * Start ASA 81 mg daily * Start Plavix 75 mg daily x3 weeks * Will discuss with patient risks vs benefits of anticoagulation given + positive ECHO * Will need vascular referral given >50% stenosis on the same side of the stroke * - Etiology of stroke is likely related to hypotensive event, but other than mild hypotension in the past day, I do not see any other BP reading that are concerningly low. She has anterior and posterior circulation involvement so also worth evaluating for cardiogenic etiology. Recommend 30 day event monitor prior to discharge * Will need Cardiology evaluation for echo findings - I will defer to them if outpatient follow-up is appropriate (6) Dysphagia: Code(s): R13.10 - Dysphagia, unspecified Status: Chronic Assessment and Plan: * GI consulted * Speech evaluated * She could underlying stricture or webbing due to chronic GERD. Reports hx of bleeding stomach ulcer several years ago at [facility], stopped Tagamet 1 year ago. * pantoprazole 40 mg b.i.d. * eating slow and chewing up food all the way. * Avoid NSAIDs 07/25: * EGD yesterday showed esophageal stricture s/p balloon dilatation. Plan EGD today Pending SNF placement Subjective Date/time seen: 07/26/23 06:56 Interval history: This is an 88 year old female with no significant PMH is here with dysphagia and incidental findings of breast cancer with possible lung involvement. She has undergone a breast biopsy and oncology is following. She is going for an EGD today for persistent dysphagia symptoms. Interval history: 07/24: Patient is seen sitting up in chair in no acute distress wearing 1 L nasal cannula. She is NPO for an EGD today. After her EGD she will be able to be discharged to her facility. She has no complaints at this time other than feeling tired and hungry. Review of Systems Review of Systems: All systems reviewed & are unremarkable except as noted in HPI and below Exam Narrative: General: chronically ill appearing, thin, frail, appears stated age. HEENT: normocephalic, atraumatic. Mucous membranes moist. EOMI, PERRLA, bilateral sclera anicteric, no conjunctival injection. Neck supple without JVD, lymphadenopathy, or bruit. Respiratory: clear to auscultation bilaterally. No rales/rhonic/wheezes. Cardiovascular: Regular rate and rhythm, normal S1-S2 upon auscultation. No murmurs, rubs, or clicks. PMI is nondisplaced, capillary re-fill less than 3 second. Abdomen: Soft, flat, no pulsatile masses, non-distended and non-tender. No rebound, no guarding. No CVA tenderness, no hepatosplenomegaly. Bowel sounds present to all four quadrants. No high pitch or tinkling sounds, resonant to percussion. Extremities: No cyanosis, clubbing, or edema present. Pulses are palpable 2/2. Active ROM to all four extremities. Neuro: Alert and orientated x 4. PERRLA. Cranial nerves 2-12 intact without focal deficit. Skin: Warm, dry, and intact, without rash, erythema, or lesion. Thin skin. Lines: PIV Incisions: NA Psych: pleasant, cooperative, normal speech, normal affect, no hallucinations, no dysarthria Objective Data Vital Signs Vital Signs: Vital Signs - 24 hr 07/25/23 07:15 07/25/23 07:25 07/25/23 08:30 Temperature 98.2 F Pulse Rate 80 Respiratory Rate 20 Blood Pressure 136/67 Pulse Oximetry 98 97 98 Oxygen Delivery Nasal Cannula Nasal Cannula Oxygen Flow Rate 2 1 Fraction of Inspired Oxygen 07/25/23 08:30 07/25/23 10:54 07/25/23 11:29 Temperature 97.3 F L Pulse Rate 77 75 Respiratory Rate 18 21 H Blood Pressure 153/69 H 117/51 L Pulse Oximetry 98 95 95 Oxygen Delivery Nasal Cannula Room Air Room Air Oxygen Flow Rate 1 Fraction of Inspired Oxygen 28 07/25/23 11:39 07/25/23 11:49 07/25/23 12:00 Temperature 98.4 F Pulse Rate 76 80 79 Respiratory Rate 28 H 18 20 Blood Pressure 133/63 143/72 H 159/61 H Pulse Oximetry 98 92 92 Oxygen Delivery Room Air Room Air Oxygen Flow Rate Fraction of Inspired Oxygen 07/25/23 14:15 07/25/23 19:18 07/26/23 00:00 Temperature 97.7 F 97.5 F L Pulse Rate 82 82 Respiratory Rate 18 18 Blood Pressure 130/63 131/65 Pulse Oximetry 91 94 90 Oxygen Delivery Oxygen Flow Rate Fraction of Inspired Oxygen 07/25/23 20:42 07/26/23 04:00 07/26/23 05:49 Temperature 97.2 F L 98.7 F Pulse Rate 81 70 Respiratory Rate 18 18 Blood Pressure 99/49 L 118/50 L Pulse Oximetry 94 90 91 Oxygen Delivery Room Air Oxygen Flow Rate Fraction of Inspired Oxygen Intake/Output Intake/Output: Intake & Output 07/23/23 07/24/23 07/25/23 07/26/23 23:59 23:59 23:59 23:59 Intake Total 530 910 350 Output Total 0 Balance 530 910 350 Meds/Results Medications: Active Medications Generic Name Dose Route Start Last Admin Trade Name Freq PRN Reason Stop Dose Admin Acetaminophen 650 mg 07/18/23 19:57 07/26/23 03:42 Acetaminophen Elixir 325 Mg/10.15 Ml Udc PO 650 mg Q4H PRN Administration Mild Pain (1-3) or Fever Aspirin 81 mg 07/22/23 12:25 07/25/23 08:31 Aspirin 81 Mg Enteric Tablet PO 81 mg QAM GLEN Administration Bisacodyl 10 mg 07/20/23 10:09 07/25/23 15:31 Bisacodyl 10 Mg Suppository RECTAL 10 mg QAM PRN Administration Constipation Calcium Carbonate 200 mg 07/18/23 09:45 07/20/23 11:43 Calcium Carbonate (Tums) 500 Mg (200 Mg Elemental) PO 200 mg Q6H PRN Administration Indigestion Clopidogrel Bisulfate 75 mg 07/22/23 12:25 07/25/23 08:31 Clopidogrel Bisulfate 75 Mg Tablet PO 75 mg QAM GLEN Administration Letrozole 2.5 mg 07/24/23 09:00 07/25/23 08:31 Letrozole (*Chemo) 2.5 Mg Tablet PO 2.5 mg QAM GLEN Administration Magnesium Hydroxide 30 ml 07/23/23 09:00 07/25/23 15:31 Magnesium Hydroxide Susp 30 Ml Udc PO 30 ml QAM GLEN Administration Morphine Sulfate 2 mg 07/17/23 18:36 07/22/23 02:25 Morphine Sulfate (*Crx) 2 Mg/Ml Inj IV PUSH 2 mg Q2H PRN Administration Pain Rated 7-10 Multivitamins Therapeutic 1 tablet 07/18/23 09:00 07/25/23 08:31 Multivitamins Therapeutic Tab (*Bkc) PO 1 tablet DAILY GLEN Administration Ondansetron HCl 4 mg 07/17/23 18:36 07/25/23 19:57 Ondansetron Inj 4 Mg/2 Ml Vial IV PUSH 4 mg Q4H PRN Administration Nausea Pantoprazole Sodium 40 mg 07/26/23 09:00 Pantoprazole 40 Mg Tablet PO QAM GLEN Polyethylene Glycol 17 gm 07/20/23 10:09 07/21/23 10:18 Polyethylene Glycol 3350 17 Gm Powd.Pack PO 17 gm QAM PRN Administration Constipation Radiology Results: ITS Impressions Chest X-Ray 07/17/23 16:02 Impression: 1: Bilateral interstitial infiltrates which may represent mild edema or pneumonia. 2: Emphysema. Chest/Abdomen/Pelvis CT 07/17/23 17:19 IMPRESSION: 1. Coarse reticulonodular infiltrates of the upper lobes anteriorly which may be postinfectious/inflammatory, although malignancy is not excluded. There are cavitary changes in the right upper lobe with associated bronchiectasis. Consider correlation with pet/CT scan or short-term follow-up CT in 3 months. Clinically correlate for history of malignancy. 2: Mediastinal lymphadenopathy, likely reactive. 3: Emphysema. 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 ADDENDUM: 07/19/23 1407 Addendum: There is an heterogeneously enhancing right breast mass measuring up to 4 cm which abuts the skin surface. Recommend correlation with diagnostic mammogram and ultrasound. Breast Core Needle Biopsy 07/19/23 12:27 IMPRESSION: Successful ultrasound guided biopsy of right 9:00 breast mass with biopsy marker placement. Please refer to pathology report for histologic analysis. Mammogram Diagnostic 07/19/23 12:27 IMPRESSION: Successful ultrasound guided biopsy of right 9:00 breast mass with biopsy marker placement. Please refer to pathology report for histologic analysis. Modified Barium Swallow 07/20/23 09:11 IMPRESSION: 1. Normal modified barium swallow. 2. Please refer to the speech therapy report for recommendations. Head CT 07/21/23 15:05 IMPRESSION: 1. Acute versus subacute infarct in the right frontoparietal region. Head/Neck CTA 07/21/23 16:53 IMPRESSION: 1. Acute versus subacute infarct in the right frontoparietal region. 2. No aneurysm or significant intracranial arterial stenosis. 3. 62% stenosis of the proximal right internal carotid artery relative to normal distal artery lumen diameter (NASCET criteria). 4. 0% stenosis of the proximal left internal carotid artery relative to normal distal artery lumen diameter. Brain MRI 07/22/23 12:40 IMPRESSION: 1. Multiple small relatively acute infarcts extending in a paramedian sagittal oriented band along the right frontal and parietal lobes with a few additional small infarcts in the right temporal occipital region. The distribution at the watershed between the anterior, middle and posterior cerebral circulation suggests possible hypotensive etiology. Abdomen X-Ray 07/23/23 15:01 IMPRESSION: No radiographic evidence of obstruction or ileus. Moderate volume of colonic feces, correlate for clinical findings of constipation. Labs Labs: Laboratory Results - last 24 hr 07/25/23 07/25/23 07/26/23 04:56 04:56 05:16 WBC 5.8 RBC 3.81 L Hgb 11.4 L Hct 36.4 L MCV 95.5 MCH 29.9 MCHC 31.3 L RDW 13.7 Plt Count 351 MPV 9.0 Immature Gran % (Auto) 0.5 Neut % (Auto) 68.1 Lymph % (Auto) 18.0 L [place] % (Auto) 9.8 H Eos % (Auto) 2.9 Baso % (Auto) 0.7 Lymph # (Auto) 1.05 [place] # (Auto) 0.6 Eos # (Auto) 0.2 Baso # (Auto) 0.0 Abs Immat Gran (auto) 0.03 Absolute Neuts (auto) 4.0 Absolute Nucleated RBC 0.000 Nucleated RBC % 0.0 Sodium 137 Potassium 4.0 Chloride 104 Carbon Dioxide 32 H Anion Gap 1 L BUN 14 Creatinine 0.70 Estim Creat Clear Calc 34 Estimated GFR > 60 Glucose 94 Calcium 8.7 Total Bilirubin 0.3 AST 34 ALT 25 Alkaline Phosphatase 60 Total Protein 6.0 L Albumin 3.1 L Triglycerides 74 Cholesterol 116 LDL Cholesterol Direct 68 HDL Direct 38 TSH 7.770 H Cancelled Quality VTE Prophylaxis VTE prophylaxis: mechanical ordered
[2023-07-26 07:42] LABS: Free T4 Free Thyroxine 1.18 ng/mL (0.78-2.19)
[2023-07-26] MEDS: ASPIRIN 81 MG ENTERIC TABLET PO (08:14)
[2023-07-26] MEDS: LETROZOLE (*CHEMO) 2.5 MG TABLET PO (08:14)
[2023-07-26] MEDS: MAGNESIUM HYDROXIDE SUSP 30 ML UDC PO (08:14)
[2023-07-26] MEDS: PANTOPRAZOLE 40 MG TABLET PO (08:14)
[2023-07-26] MEDS: CLOPIDOGREL BISULFATE 75 MG TABLET PO (08:14)
[2023-07-26] MEDS: MULTIVITAMINS THERAPEUTIC TAB (*BKC) 1 TABLET PO (08:14)
[2023-07-26 08:15] VITALS: O2SAT 92
--- NOTE | 2023-07-26 08:31 | P.PNAN_ITS ---
Anes - Prog Note Post-Op Date/Time: 07/26/23 08:31 Cardiovascular status: normal Respiratory status: normal Airway patency: baseline Mental status: baseline Post-Op hydration status: normal Vital Signs: Last Vital Signs Temp 37.1 C 07/26/23 05:49 Pulse 70 07/26/23 05:49 Resp 18 07/26/23 05:49 BP 118/50 L 07/26/23 05:49 Pulse Ox 91 07/26/23 05:49 O2 Del Method Room Air 07/25/23 20:42 O2 Flow Rate 1 07/25/23 08:30 FiO2 28 07/25/23 08:30 Pain Score (VAS): 0/10 I/O: Intake & Output 07/25/23 07/26/23 07/26/23 23:59 07:59 15:59 Intake Total 300 Balance 300 Laboratory Tests 07/26/23 05:16 07/26/23 05:16 07/25/23 07/25/23 07/26/23 04:56 04:56 05:16 WBC 5.8 RBC 3.81 L Hgb 11.4 L Hct 36.4 L MCV 95.5 MCH 29.9 MCHC 31.3 L RDW 13.7 Plt Count 351 MPV 9.0 Immature Gran % (Auto) 0.5 Neut % (Auto) 68.1 Lymph % (Auto) 18.0 L [place] % (Auto) 9.8 H Eos % (Auto) 2.9 Baso % (Auto) 0.7 Lymph # (Auto) 1.05 [place] # (Auto) 0.6 Eos # (Auto) 0.2 Baso # (Auto) 0.0 Abs Immat Gran (auto) 0.03 Absolute Neuts (auto) 4.0 Absolute Nucleated RBC 0.000 Nucleated RBC % 0.0 Sodium 137 Potassium 4.0 Chloride 104 Carbon Dioxide 32 H Anion Gap 1 L BUN 14 Creatinine 0.70 Estim Creat Clear Calc 34 Estimated GFR > 60 Glucose 94 Calcium 8.7 Total Bilirubin 0.3 AST 34 ALT 25 Alkaline Phosphatase 60 Total Protein 6.0 L Albumin 3.1 L Triglycerides 74 Cholesterol 116 LDL Cholesterol Direct 68 HDL Direct 38 TSH 7.770 H Cancelled Free T4 1.18 Free T3 pg/mL Pending Post-procedural complaints: none Patient Feedback: Patient satisfied with anesthetic care.
[2023-07-26 10:41] VITALS: BP 113/55; PULSE 85; RESP 16; TEMP 36.8; O2SAT 90
--- NOTE | 2023-07-26 10:58 | PC.NURSE ---
On 07/26/23, the student, [Amaya Nagy], provided care and completed [facility] documentation on this patient. I have reviewed the student's documentation and agree with the findings.
[2023-07-26 11:17] LABS: SARS-CoV-2 RNA PCR Negative (Negative)
--- NOTE | 2023-07-26 11:41 | WPDNEUROPN ---
Progress Note: A&P Assessment and Plan (1) Stroke: Code(s): I63.9 - Cerebral infarction, unspecified Status: Acute (2) Left-sided weakness: Code(s): R53.1 - Weakness Status: Acute (3) Carotid stenosis, right: Code(s): I65.21 - Occlusion and stenosis of right carotid artery Status: Acute Time Spent With Patient Time: Valeria Deutsch is a 88 year old female currently admitted for evaluation of lung and breast mass, as well as UTI. During admission, there were concerns raised for L sided weakness. CTA brain/carotid showed 62% stenosis of the proximal R ICA. MRI brain showed acute infarcts in the R watershed distribution. Concern for hypotensive event in the setting of R carotid stenosis, likely etiology of stroke. LDL and HgbA1c are appropriate. Echo was negative for atrial septal shunt, but showed findings pulmonary arteriovenous shunt. - Continue Aspirin 81mg daily - Will need vascular referral given >50% stenosis on the same side of the stroke - Continue Plavix 75mg daily for at least 3 weeks, (until seen by vascular) - Etiology of stroke is likely related to hypotensive event, but other than mild hypotension in the past day, I do not see any other BP reading that are concerningly low. She has anterior and posterior circulation involvement so also worth evaluating for cardiogenic etiology. Recommend 30 day event monitor prior to discharge - Will need Cardiology evaluation for echo findings - I will defer to them if outpatient follow-up is appropriate Subjective Date/time seen: 07/26/23 11:41 Interval history: Valeria Deutsch is a 88 year old female currently admitted for evaluation of lung and breast mass, as well as UTI. During admission, there were concerns raised for L sided weakness. Patient's last known well is not clear based on the nursing staff. She had a CT head that showed acute vs subacute infarct in the R frontoparietal region. CTA brain/carotid showed 62% stenosis of the proximal R ICA. MRI brain showed acute infarcts in the R watershed distribution. She smokes 6 cigarettes per day, but plans on stopping. Her lowest documented BP was 99/49 which was in the past day. LDL is 68. Echo with bubble study showed no septal shunt but findings suggestive of pulmonary arteriovenous shunting. HgbA1c is 5.6. Patient denies any significant L sided weakness today. Review of Systems Review of Systems: All systems reviewed & are unremarkable except as noted in HPI and below Exam Const: General: comfortable and no acute distress HENMT: Mouth: Yes moist mucous membranes Eyes: Pupils: Equal, round and reactive pupils present EOM: EOMs intact bilaterally Resp: Effort & Inspection: normal respiratory effort Skin: General skin exam: normal color Neuro: Other: AOx3, Pupils equal and reactive bilaterally, EOMI, face symmetric, facial sensation intact, tongue protrudes midline, strength is 5/5 in RUE, 5/5 in LUE, 5/5 in bilateral lower extremities. Sensation is symmetric bilaterally. Language comprehension and fluency intact. Gait deferred. Extrem: General: normal to inspection Psych: Mental Status: mental status grossly normal Affect: normal affect Objective Data Vital Signs Vital Signs: Vital Signs - 24 hr 07/25/23 11:49 07/25/23 12:00 07/25/23 14:15 Temperature 36.9 C Pulse Rate 80 79 Respiratory Rate 18 20 Blood Pressure 143/72 H 159/61 H Pulse Oximetry 92 92 91 Oxygen Delivery Room Air 07/25/23 19:18 07/26/23 00:00 07/25/23 20:42 Temperature 36.5 C 36.4 C L Pulse Rate 82 82 Respiratory Rate 18 18 Blood Pressure 130/63 131/65 Pulse Oximetry 94 90 94 Oxygen Delivery Room Air 07/26/23 04:00 07/26/23 05:49 07/26/23 08:15 Temperature 36.2 C L 37.1 C Pulse Rate 81 70 Respiratory Rate 18 18 Blood Pressure 99/49 L 118/50 L Pulse Oximetry 90 91 92 Oxygen Delivery Room Air 07/26/23 09:28 07/26/23 10:41 Temperature 36.8 C Pulse Rate 85 Respiratory Rate 16 Blood Pressure 113/55 L Pulse Oximetry 90 Oxygen Delivery Room Air Intake/Output Intake/Output: Intake & Output 07/23/23 07/24/23 07/25/23 07/26/23 23:59 23:59 23:59 23:59 Intake Total 530 910 350 120 Output Total 0 Balance 530 910 350 120 Meds/Results Medications: Active Medications Generic Name Dose Route Start Last Admin Trade Name Freq PRN Reason Stop Dose Admin Acetaminophen 650 mg 07/18/23 19:57 07/26/23 03:42 Acetaminophen Elixir 325 Mg/10.15 Ml Udc PO 650 mg Q4H PRN Administration Mild Pain (1-3) or Fever Aspirin 81 mg 07/22/23 12:25 07/26/23 08:14 Aspirin 81 Mg Enteric Tablet PO 81 mg QAM GLEN Administration Bisacodyl 10 mg 07/20/23 10:09 07/25/23 15:31 Bisacodyl 10 Mg Suppository RECTAL 10 mg QAM PRN Administration Constipation Calcium Carbonate 200 mg 07/18/23 09:45 07/20/23 11:43 Calcium Carbonate (Tums) 500 Mg (200 Mg Elemental) PO 200 mg Q6H PRN Administration Indigestion Clopidogrel Bisulfate 75 mg 07/22/23 12:25 07/26/23 08:14 Clopidogrel Bisulfate 75 Mg Tablet PO 75 mg QAM GLEN Administration Letrozole 2.5 mg 07/24/23 09:00 07/26/23 08:14 Letrozole (*Chemo) 2.5 Mg Tablet PO 2.5 mg QAM GLEN Administration Magnesium Hydroxide 30 ml 07/23/23 09:00 07/26/23 08:14 Magnesium Hydroxide Susp 30 Ml Udc PO 30 ml QAM GLEN Administration Morphine Sulfate 2 mg 07/17/23 18:36 07/22/23 02:25 Morphine Sulfate (*Crx) 2 Mg/Ml Inj IV PUSH 2 mg Q2H PRN Administration Pain Rated 7-10 Multivitamins Therapeutic 1 tablet 07/18/23 09:00 07/26/23 08:14 Multivitamins Therapeutic Tab (*Bkc) PO 1 tablet DAILY GLEN Administration Ondansetron HCl 4 mg 07/17/23 18:36 07/25/23 19:57 Ondansetron Inj 4 Mg/2 Ml Vial IV PUSH 4 mg Q4H PRN Administration Nausea Pantoprazole Sodium 40 mg 07/26/23 09:00 07/26/23 08:14 Pantoprazole 40 Mg Tablet PO 40 mg QAM GLEN Administration Polyethylene Glycol 17 gm 07/20/23 10:09 07/21/23 10:18 Polyethylene Glycol 3350 17 Gm Powd.Pack PO 17 gm QAM PRN Administration Constipation Radiology Results: ITS Impressions Chest X-Ray 07/17/23 16:02 Impression: 1: Bilateral interstitial infiltrates which may represent mild edema or pneumonia. 2: Emphysema. Chest/Abdomen/Pelvis CT 07/17/23 17:19 IMPRESSION: 1. Coarse reticulonodular infiltrates of the upper lobes anteriorly which may be postinfectious/inflammatory, although malignancy is not excluded. There are cavitary changes in the right upper lobe with associated bronchiectasis. Consider correlation with pet/CT scan or short-term follow-up CT in 3 months. Clinically correlate for history of malignancy. 2: Mediastinal lymphadenopathy, likely reactive. 3: Emphysema. 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 ADDENDUM: 07/19/23 1407 Addendum: There is an heterogeneously enhancing right breast mass measuring up to 4 cm which abuts the skin surface. Recommend correlation with diagnostic mammogram and ultrasound. Breast Core Needle Biopsy 07/19/23 12:27 IMPRESSION: Successful ultrasound guided biopsy of right 9:00 breast mass with biopsy marker placement. Please refer to pathology report for histologic analysis. Mammogram Diagnostic 07/19/23 12:27 IMPRESSION: Successful ultrasound guided biopsy of right 9:00 breast mass with biopsy marker placement. Please refer to pathology report for histologic analysis. Modified Barium Swallow 07/20/23 09:11 IMPRESSION: 1. Normal modified barium swallow. 2. Please refer to the speech therapy report for recommendations. Head CT 07/21/23 15:05 IMPRESSION: 1. Acute versus subacute infarct in the right frontoparietal region. Head/Neck CTA 07/21/23 16:53 IMPRESSION: 1. Acute versus subacute infarct in the right frontoparietal region. 2. No aneurysm or significant intracranial arterial stenosis. 3. 62% stenosis of the proximal right internal carotid artery relative to normal distal artery lumen diameter (NASCET criteria). 4. 0% stenosis of the proximal left internal carotid artery relative to normal distal artery lumen diameter. Brain MRI 07/22/23 12:40 IMPRESSION: 1. Multiple small relatively acute infarcts extending in a paramedian sagittal oriented band along the right frontal and parietal lobes with a few additional small infarcts in the right temporal occipital region. The distribution at the watershed between the anterior, middle and posterior cerebral circulation suggests possible hypotensive etiology. Abdomen X-Ray 07/23/23 15:01 IMPRESSION: No radiographic evidence of obstruction or ileus. Moderate volume of colonic feces, correlate for clinical findings of constipation. Labs Labs: Laboratory Results - last 24 hr 07/25/23 07/25/23 07/26/23 04:56 04:56 05:16 WBC 5.8 RBC 3.81 L Hgb 11.4 L Hct 36.4 L MCV 95.5 MCH 29.9 MCHC 31.3 L RDW 13.7 Plt Count 351 MPV 9.0 Immature Gran % (Auto) 0.5 Neut % (Auto) 68.1 Lymph % (Auto) 18.0 L [place] % (Auto) 9.8 H Eos % (Auto) 2.9 Baso % (Auto) 0.7 Lymph # (Auto) 1.05 [place] # (Auto) 0.6 Eos # (Auto) 0.2 Baso # (Auto) 0.0 Abs Immat Gran (auto) 0.03 Absolute Neuts (auto) 4.0 Absolute Nucleated RBC 0.000 Nucleated RBC % 0.0 Sodium 137 Potassium 4.0 Chloride 104 Carbon Dioxide 32 H Anion Gap 1 L BUN 14 Creatinine 0.70 Estim Creat Clear Calc 34 Estimated GFR > 60 Glucose 94 Calcium 8.7 Total Bilirubin 0.3 AST 34 ALT 25 Alkaline Phosphatase 60 Total Protein 6.0 L Albumin 3.1 L Triglycerides 74 Cholesterol 116 LDL Cholesterol Direct 68 HDL Direct 38 TSH 7.770 H Cancelled Free T4 1.18 SARS-CoV-2 RNA (RT-PCR) 07/26/23 10:34 WBC RBC Hgb Hct MCV MCH MCHC RDW Plt Count MPV Immature Gran % (Auto) Neut % (Auto) Lymph % (Auto) [place] % (Auto) Eos % (Auto) Baso % (Auto) Lymph # (Auto) [place] # (Auto) Eos # (Auto) Baso # (Auto) Abs Immat Gran (auto) Absolute Neuts (auto) Absolute Nucleated RBC Nucleated RBC % Sodium Potassium Chloride Carbon Dioxide Anion Gap BUN Creatinine Estim Creat Clear Calc Estimated GFR Glucose Calcium Total Bilirubin AST ALT Alkaline Phosphatase Total Protein Albumin Triglycerides Cholesterol LDL Cholesterol Direct HDL Direct TSH Free T4 SARS-CoV-2 RNA (RT-PCR) Negative [facility]g [facility] Follow[facility]up Hospital Follow-up: [id number] Mod
--- NOTE | 2023-07-26 14:22 | P.PNGI_ITS ---
Progress Note: A&P Assessment and Plan (1) Dysphagia: Code(s): R13.10 - Dysphagia, unspecified Status: Chronic Assessment and Plan: esophageal ring dilated with 12 mm balloon then expected tear, no complications now she is swallowing better egd in 3 months to reassess and consider more dilatation (2) Esophageal ring: Code(s): K22.2 - Esophageal obstruction Status: Acute (3) Breast cancer: Code(s): C50.919 - Malignant neoplasm of unspecified site of unspecified female breast Status: Acute Assessment and Plan: will follow-up with oncology (4) COPD (chronic obstructive pulmonary disease): Code(s): J44.9 - Chronic obstructive pulmonary disease, unspecified Status: Acute (5) Lung mass: Code(s): R91.8 - Other nonspecific abnormal finding of lung field Status: Acute (6) Stroke: Code(s): I63.9 - Cerebral infarction, unspecified Status: Acute Assessment and Plan: ok to continue with plavix Subjective Date/time seen: 07/26/23 14:02 Interval history: egd with dilatation of esophageal ring yesterday, she is swallowing better she is going to be discharged Review of Systems Review of Systems: All systems reviewed & are unremarkable except as noted in HPI and below Exam Const: General: comfortable and no acute distress Other: thin appearing HENMT: Face/Nose/Sinus: Normal nares present Eyes: General: appearance normal, both eyes and all related structures Neck: Neck: supple Resp: Auscultation: no crackles and diminished lung sounds Cardio: Rate: regular rate Rhythm: regular rhythm GI: Inspection: non-distended GI Palp: Yes Soft to palpation, No Tenderness to palpation present (GI) and No Guarding due to palpation present (GI) Auscultation: normal bowel sounds Skin: General skin exam: normal color Neuro: Speech: normal speech Extrem: General: normal to inspection Psych: Mental Status: mental status grossly normal Objective Data Vital Signs Vital Signs: Vital Signs - 24 hr 07/25/23 19:18 07/26/23 00:00 07/25/23 20:42 Temperature 97.7 F 97.5 F L Pulse Rate 82 82 Respiratory Rate 18 18 Blood Pressure 130/63 131/65 Pulse Oximetry 94 90 94 Oxygen Delivery Room Air 07/26/23 04:00 07/26/23 05:49 07/26/23 08:15 Temperature 97.2 F L 98.7 F Pulse Rate 81 70 Respiratory Rate 18 18 Blood Pressure 99/49 L 118/50 L Pulse Oximetry 90 91 92 Oxygen Delivery Room Air 07/26/23 09:28 07/26/23 10:41 Temperature 98.2 F Pulse Rate 85 Respiratory Rate 16 Blood Pressure 113/55 L Pulse Oximetry 90 Oxygen Delivery Room Air Intake/Output Intake/Output: Intake & Output 07/23/23 07/24/23 07/25/23 07/26/23 23:59 23:59 23:59 23:59 Intake Total 530 910 350 360 Output Total 0 Balance 530 910 350 360 Meds/Results Radiology Results: ITS Impressions Chest X-Ray 07/17/23 16:02 Impression: 1: Bilateral interstitial infiltrates which may represent mild edema or pneumonia. 2: Emphysema. Chest/Abdomen/Pelvis CT 07/17/23 17:19 IMPRESSION: 1. Coarse reticulonodular infiltrates of the upper lobes anteriorly which may be postinfectious/inflammatory, although malignancy is not excluded. There are cavitary changes in the right upper lobe with associated bronchiectasis. Consider correlation with pet/CT scan or short-term follow-up CT in 3 months. Clinically correlate for history of malignancy. 2: Mediastinal lymphadenopathy, likely reactive. 3: Emphysema. 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 ADDENDUM: 07/19/23 [id number] Addendum: There is an heterogeneously enhancing right breast mass measuring up to 4 cm which abuts the skin surface. Recommend correlation with diagnostic mammogram and ultrasound. Breast Core Needle Biopsy 07/19/23 12:27 IMPRESSION: Successful ultrasound guided biopsy of right 9:00 breast mass with biopsy marker placement. Please refer to pathology report for histologic analysis. Mammogram Diagnostic 07/19/23 12:27 IMPRESSION: Successful ultrasound guided biopsy of right 9:00 breast mass with biopsy marker placement. Please refer to pathology report for histologic analysis. Modified Barium Swallow 07/20/23 09:11 IMPRESSION: 1. Normal modified barium swallow. 2. Please refer to the speech therapy report for recommendations. Head CT 07/21/23 15:05 IMPRESSION: 1. Acute versus subacute infarct in the right frontoparietal region. Head/Neck CTA 07/21/23 16:53 IMPRESSION: 1. Acute versus subacute infarct in the right frontoparietal region. 2. No aneurysm or significant intracranial arterial stenosis. 3. 62% stenosis of the proximal right internal carotid artery relative to normal distal artery lumen diameter (NASCET criteria). 4. 0% stenosis of the proximal left internal carotid artery relative to normal distal artery lumen diameter. Brain MRI 07/22/23 12:40 IMPRESSION: 1. Multiple small relatively acute infarcts extending in a paramedian sagittal oriented band along the right frontal and parietal lobes with a few additional small infarcts in the right temporal occipital region. The distribution at the watershed between the anterior, middle and posterior cerebral circulation suggests possible hypotensive etiology. Abdomen X-Ray 07/23/23 15:01 IMPRESSION: No radiographic evidence of obstruction or ileus. Moderate volume of colonic feces, correlate for clinical findings of constipation. Labs Labs: Laboratory Results - last 24 hr 07/25/23 07/25/23 07/26/23 04:56 04:56 05:16 WBC 5.8 RBC 3.81 L Hgb 11.4 L Hct 36.4 L MCV 95.5 MCH 29.9 MCHC 31.3 L RDW 13.7 Plt Count 351 MPV 9.0 Immature Gran % (Auto) 0.5 Neut % (Auto) 68.1 Lymph % (Auto) 18.0 L [place] % (Auto) 9.8 H Eos % (Auto) 2.9 Baso % (Auto) 0.7 Lymph # (Auto) 1.05 [place] # (Auto) 0.6 Eos # (Auto) 0.2 Baso # (Auto) 0.0 Abs Immat Gran (auto) 0.03 Absolute Neuts (auto) 4.0 Absolute Nucleated RBC 0.000 Nucleated RBC % 0.0 Sodium 137 Potassium 4.0 Chloride 104 Carbon Dioxide 32 H Anion Gap 1 L BUN 14 Creatinine 0.70 Estim Creat Clear Calc 34 Estimated GFR > 60 Glucose 94 Calcium 8.7 Total Bilirubin 0.3 AST 34 ALT 25 Alkaline Phosphatase 60 Total Protein 6.0 L Albumin 3.1 L Triglycerides 74 Cholesterol 116 LDL Cholesterol Direct 68 HDL Direct 38 TSH 7.770 H Cancelled Free T4 1.18 SARS-CoV-2 RNA (RT-PCR) 07/26/23 10:34 WBC RBC Hgb Hct MCV MCH MCHC RDW Plt Count MPV Immature Gran % (Auto) Neut % (Auto) Lymph % (Auto) [place] % (Auto) Eos % (Auto) Baso % (Auto) Lymph # (Auto) [place] # (Auto) Eos # (Auto) Baso # (Auto) Abs Immat Gran (auto) Absolute Neuts (auto) Absolute Nucleated RBC Nucleated RBC % Sodium Potassium Chloride Carbon Dioxide Anion Gap BUN Creatinine Estim Creat Clear Calc Estimated GFR Glucose Calcium Total Bilirubin AST ALT Alkaline Phosphatase Total Protein Albumin Triglycerides Cholesterol LDL Cholesterol Direct HDL Direct TSH Free T4 SARS-CoV-2 RNA (RT-PCR) Negative Amg Follow-up [facility]illing [facility] Follow-up Hospital Follow-up: [address] [facility]
--- NOTE | 2023-07-27 13:43 | P.DS_ITS ---
DS: Admitting Diagnosis Discharge Date 07/26/23 Admitting Diagnosis dizziness DS: Discharge Diagnosis Discharge Diagnosis (1) Lung mass: Code(s): R91.8 - Other nonspecific abnormal finding of lung field Status: Acute (2) Weight loss: Code(s): R63.4 - Abnormal weight loss Status: Acute (3) UTI (urinary tract infection): Code(s): N39.0 - Urinary tract infection, site not specified Status: Acute (4) Breast mass, right: Qualifiers: Breast mass location: lower outer quadrant Qualified Code(s): N63.13 - Unspecified lump in the right breast, lower outer quadrant Code(s): N63.10 - Unspecified lump in the right breast, unspecified quadrant Status: Acute (5) Left-sided weakness: Code(s): R53.1 - Weakness Status: Acute (6) Dysphagia: Code(s): R13.10 - Dysphagia, unspecified Status: Chronic Plan Assessment and Plan (1) Lung mass: ?Code(s): R91.8 - Other nonspecific abnormal finding of lung field ?Status:?Acute ?Assessment and Plan: * CT showed coarse reticulonodular infiltrates of the upper lobes anteriorly which may be postinfectious/inflammatory, although malignancy is not excluded. There are cavitary changes in the right upper lobe with associated bronchiectasis. Consider correlation with pet/CT scan or short-term follow-up CT in 3 months. * Oncology following - outpatient PET scan?07/24: On oxygen now as new requirement. 1-2 L NC. (2) Weight loss: ?Code(s): R63.4 - Abnormal weight loss ?Status:?Acute ?Assessment and Plan: * patient reports 30+ lb weight loss in past 3 months. * snuff packing machine operator consulted? (3) UTI (urinary tract infection): ?Code(s): N39.0 - Urinary tract infection, site not specified ?Status:?Acute ?Assessment and Plan: * abnormal UA on admission * will d/c Rocephin after last dose today * UA culture positive for Aerococcus urinae (4) Breast mass, right: ?Qualifiers: ?Breast mass location:?lower outer quadrant? Qualified Code(s):?N63.13 - Unspecified lump in the right breast, lower outer quadrant ?Code(s): N63.10 - Unspecified lump in the right breast, unspecified quadrant ?Status:?Acute ?Assessment and Plan: * CT showed heterogeneously enhancing right breast mass measuring up to 4 cm which abuts the skin surface. Recommend correlation with diagnostic mammogram and ultrasound. Invasive ductal carcinoma per pathology report. Oncology following, s/p: breast biopsy * starting on Femera while inpatient to continue at d/c * patient to follow up with oncology after d/c for further treatment(5) Left- sided weakness: ?Code(s): R53.1 - Weakness ?Status:?Acute ?Assessment and Plan: -initiate fall precaution -check blood glucose q.4 -Brain MRI showed multiple small relatively acute infarcts extending in a paramedian sagittal oriented band along the right frontal and parietal lobes with a few additional small infarcts in the right temporal occipital region. The distribution at the watershed between the anterior, middle and posterior cerebral circulation suggests possible hypotensive etiology. -neurology consulted appreciate recommendation and plan -LDL 65 - hold off on statin -A1c 5.6 -echocardiogram with bubble unremarkable * Start ASA 81 mg daily, * Start Plavix 75 mg daily x3 weeks * Will need vascular referral given >50% stenosis on the same side of the stroke (6) Dysphagia: ?Code(s): R13.10 - Dysphagia, unspecified ?Status:?Chronic ?Assessment and Plan: * GI consulted * Speech evaluated * She could underlying stricture or webbing due to chronic GERD.? Reports hx of bleeding stomach ulcer several years ago at [facility], stopped Tagamet 1 year ago. * pantoprazole 40 mg b.i.d. * eating slow and chewing up food all the way. * Avoid NSAIDs * consider EGD outpatient * recommend follow-up in the office after discharge to follow up on the dysphagia. DS: Summary Hospital Course Reason for hospitalization: Lung mass, UTI, stroke Hospital Course: This is an 88 year old female with no significant PMH is here with dysphagia and incidental findings of breast cancer with possible lung involvement. She has undergone a breast biopsy and oncology is following. She is going for an EGD today for persistent dysphagia symptoms. During her stay she was also treated for a UTI and suffered a stroke. Neurology was consulted. She is discharging to SNF for further therapy needs. Interval history: 07/24:? Patient is seen sitting up in chair in no acute distress wearing 1 L nasal cannula.? She is NPO for an EGD today.? After her EGD she will be able to be discharged to her facility.? She has no complaints at this time other than feeling tired and hungry. 07/25: Doing well today. I discussed plan to discharge today and she states she is ready. She reports that she has already seen improvement with her fine motor function since the stroke occurred. She is on room air today and not requring oxygen. She denies complaints. Labs and vitals have been reviewed. 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 There is no further treatment needed and she does not need to follow up with cardiology for this. She will follow with oncology given her new diagnosis of breast cancer and she will follow up with neurology after her stroke. Her PCP will have to order a 30 day event monitor per neurology request. Time Spent with Patient Time attestation: Total time spent providing and/or coordinating discharge services:58 Exam Narrative: General: chronic ally ill appearing , thin, frail, josee ears stated age. H EENT: normocephali c, atraumatic. Muc ous membranes mois t. EOMI, PERRLA, b ilateral sclera an icteric, no conjun ctival injection. Neck supple withou t JVD, lymphadenop athy, or bruit. Re spiratory: clear t o auscultation cain aterally. No rales /rhonic/wheezes. C ardiovascular: Reg ular rate and rhyt hm, normal S1-S2 u [place] auscultation. No murmurs, rubs, or clicks. PMI is nondisplaced, capi llary re-fill less than 3 second. Ab domen: Soft, flat, no pulsatile mass es, non-distended and non-tender. No rebound, no guard ing. No CVA tender ness, no hepatospl enomegaly.? Bowel sounds present to all four quadrants . No high pitch or tinkling sounds, resonant to percus rogelio. Extremities: No cyanosis, club jonatan, or edema pre sent. Pulses are p alpable 2/2.? Acti ve ROM to all four extremities. Neur o: Alert and orien tated x 4. PERRLA. Cranial nerves 2- 12 intact without focal deficit. Ski n: Warm, dry, and intact, without ra sh, erythema, or l esion. Thin skin. Lines: PIV Incisio ns: NA Psych: plea sergei, cooperative, normal speech, no rmal affect, no meza llucinations, no d ysarthria DS: Data Data Completed and Pending Completed studies during hospitalization: Pending at discharge 07/19/23 12:10 Surgical [PTH] Routine 07/25/23 11:24 Surgical [PTH] Routine Discharge Plan Discharge Attending physician on discharge: Thalia Juarez Consulting providers: Cooper Shepard; Milka Perez; Ez Wolf V.; Xiomy Griffin; Iman Heard; Juan Dong; Shasha Kent; Juan Pablo Nova; Trey Cancino; Teddy Henriquez V.; Noemi Serrano; Stuart Dickerson; Lety Vogt; Chris Harris; Supa Becerra; Jefe Hoskins; Miguel Serrano; Mounika Zurita Discharging Clinician: Shasha Kent Anticipated Discharge Date/Time: 07/25/23 16:03 Patient Disposition: SNF Activity: august shower Diet: regular Discharge Instructions: Patient was given office information to follow up with an appointment at the [place] [address] [place] upon discharge. Please call our office number ([phone]) to make a follow up appointment regarding lung and breast mass. You had an EGD which showed an esophageal stricture. GI ballooned the stricture and now it is open. They did some biopsies which will result in the next 1 week. Please call the office to schedule a follow up appointment. Okay to resume a regular diet with small pieces of food at a time. You will need a repeat EGD in 3 months to assess and see if you need another dilatation. You were also treated for a UTI during this admission. You also had left sided weakness during your stay and were worked up and found to have had a stroke. You need to continue to take Plavix 75 mg daily for the next 3 weeks at least until you can be evaluated by vascular surgery for your carotid artery stenosis, as well as daily ASA 81 mg. You have 62% stenosis to your right internal carotid artery and this may have contributed to your stroke. Your cholesterol panel was normal so a statin medication was not started. Initially I had thought you would benefit from anticoagulation with Xarelto but neurology (brain specialist, stroke specialist) said that due to the location of the shunt (pulmonary AV) aspirin and Plavix are sufficient. I spoke with cardiology regarding consult for the AV shunt but this is not necessary and does not need outpatient follow up. They would also like you to wear a 30 day event heart monitor. This will need to be ordered by your PCP. Patient Instructions: Antibiotic Form, How to Stop Smoking (DC), Ischemic Str yfn (DC) Stand Alone Forms: General Discharge Information Follow-up/Referrals: Juan Dong MD [Physician] - Cooper Shepard MD [Physician] - Milka Perez MD [Physician] - Discharge Medications: New aspirin 81 mg Tablet,Delayed Release (Dr/Ec) 81 mg PO QAM Qty: 60 0RF letrozole [Femara] 2.5 mg Tablet 2.5 mg PO QAM Qty: 60 0RF pantoprazole 40 mg Tablet,Delayed Release (Dr/Ec) 40 mg PO QAM Qty: 60 0RF clopidogrel [Plavix] 75 mg tablet 75 mg PO DAILY Qty: 30 0RF Continued multivitamin Tablet 1 tablet PO DAILY Date of admission: 07/17/23 18:36 Primary Care Provider: PHYSICIAN,BOILERS INSPECTOR Admitting Provider: Camelia Carlton Attending physician on admission: Camelia Carlton Condition: Stable Quality VTE Prophylaxis VTE prophylaxis: mechanical ordered
== END 2023-07-26 14:14 | DRG 597 ==
LOC: ANHED 18:35 → ANH2MED 19:26
PROVIDERS: Internal Medicine Gastroenterology; Nurse Practitioner; Nurse Practitioner Acute Care; Nurse Practitioner Family; Admitting Provider Student in an Organized Health Care Education/Training Program; Emergency Provider Family Medicine; Visit Provider Student in an Organized Health Care Education/Training Program
PROC: 0DJ08ZZ Inspection of Upper Intestinal Tract, Via Natural or Artificial Opening Endoscopic (ICD-10-PCS; CPT 43235; principal; 2023-07-25 13:30)
DX: C50.919 Malignant neoplasm of unspecified site of unspecified female breast (principal); E43 Unspecified severe protein-calorie malnutrition; I63.9 Cerebral infarction, unspecified; N39.0 Urinary tract infection, site not specified; G81.94 Hemiplegia, unspecified affecting left nondominant side; Z68.1 Body mass index [BMI] 19.9 or less, adult; K22.2 Esophageal obstruction; R13.10 Dysphagia, unspecified; B95.2 Enterococcus as the cause of diseases classified elsewhere; F17.210 Nicotine dependence, cigarettes, uncomplicated; I65.21 Occlusion and stenosis of right carotid artery; J44.9 Chronic obstructive pulmonary disease, unspecified; K59.09 Other constipation; K21.9 Gastro-esophageal reflux disease without esophagitis; R63.4 Abnormal weight loss; R91.8 Other nonspecific abnormal finding of lung field; R11.0 Nausea; Z11.52 Encounter for screening for COVID-19; Z79.82 Long term (current) use of aspirin; Z79.02 Long term (current) use of antithrombotics/antiplatelets
CPT/HCPCS: 19083; 36415; 70450; 70496; 70498; 70553; 71045; 71260; 74018; 74177; 80048; 80053; 80061; 81001; 82948; 83036; 83690; 83721; 84439; 84443; 84480; 84484; 85025; 85610; 85730; 86300; 87077; 87086; 87088; 87635; 88305; 88342; 88360; 92611; 93005; 93306; 94640; 96375; 97110; 97161; 97165; 97530; 97535; 99285; A4648; A9270; A9577; C1726; J0696; J2270; J2405; J2704; J7030; J7120; Q9967

== ENCOUNTER 2023-08-06 14:41 | Outpatient (CLI) | payer OTHER, MEDICARE, SELFPAY ==
[2023-08-06 14:56] LABS: Kit Draw Collected
== END 2023-08-06 14:42 | disposition home or self-care (01) ==
LOC: ANHLAB 14:42
PROVIDERS: Visit Provider Internal Medicine Hematology & Oncology
DX: C50.919 Malignant neoplasm of unspecified site of unspecified female breast (principal); Z17.0 Estrogen receptor positive status [ER+]
CPT/HCPCS: 36415

== ENCOUNTER 2023-08-21 09:26 | Outpatient (CLI) | payer MEDICARE, SELFPAY ==
--- NOTE | ~2023-08-21 | PE_ITS ---
EXAMINATION: PET skull to mid thigh DATE: 08/21/2023 12:17 INDICATION: Breast cancer TECHNIQUE: Blood glucose level was 88 mg/dL. 9.617 mCi of 18-fluorodeoxyglucose (18-FDG) was administ ered i.v. Low dose computed tomography (CT) images were acquired from the base of the brain to the pr oximal thighs for attenuation correction and anatomic localization. Positron emission tomography (PET ) images were acquired in the same distribution beginning 53 minutes after injection. Images includin g fused PET/CT images were reconstructed in axial, coronal, and sagittal planes. Automated exposure c ontrol technique was employed. The dose-length product was 481.20mGy-cm. COMPARISON: CT chest, abdomen and pelvis dated 07/13/2023 FINDINGS: Head/neck: There is symmetric increased activity in the oral cavity, palatine tonsils, parotid glands, submandi bular glands, laryngeal muscles and ocular muscles without CT correlate, likely physiologic. No patho logically enlarged cervical lymphadenopathy or suspicious foci of increased FDG uptake in the visuali zed head or neck. Chest: There is approximately 3.7 x 1.9 cm markedly FDG avid mass lesion at the 9:00 position of the right b reast with maximal SUV of 10 consistent with biopsy-proven invasive carcinoma of the breast. Emphysem a and unchanged bandlike region of scarring at the posterior segment of the right upper lobe. Signifi cant decrease in prior scattered regions of tree-in-bud opacity consistent with improving pneumonia. There are small regions of consolidation with associated increased FDG uptake in the right middle lob e with maximal SUV of 3.3 and medial anterior segment of the right upper lobe with maximal SUV of 2.3 both of which have progressed since the prior study and at the lingula with maximal SUV of 3.0 which is demonstrated some improvement since the prior study. The appearance, relatively low FDG activity and relatively rapid change since the prior study would be most consistent with an evolving pattern o f pneumonia. No larger or more FDG avid nodules concerning for metastatic disease. Heart size is norm al. Atherosclerotic coronary artery calcifications. No pericardial effusion. Thoracic aorta is normal in caliber. No pathologically enlarged or FDG avid thoracic lymphadenopathy. Abdomen/pelvis/proximal thighs: Physiologic renal accumulation and excretion of FDG activity in the kidneys, bladder and along portio ns of ureters. Normal degree and heterogenous pattern of increased uptake throughout the liver withou t radiologic correlate or dominant FDG avid lesion. The gallbladder, pancreas, spleen and right adren al gland are normal. There is asymmetric thickening of the central aspect of the left adrenal gland w ith 1-1.5 cm region of increased FDG uptake with maximal SUV of 3.7 suspicious for metastatic disease . Mild uptake scattered throughout the bowels without radiologic correlate, also likely physiologic. There are scattered sigmoid diverticula without adjacent from trace stranding to suggest diverticulit is. Coarse calcifications in the uterus likely representing chronic degenerated uterine fibroids. No other abnormal foci of increased FDG uptake or pathologically enlarged lymphadenopathy in the abdomen , pelvis or proximal thighs. There is calcified atherosclerosis of the aorta and many of the other ar teries. Musculoskeletal: L5 spondylolysis with bilateral pars intra-articular is defects and 1.2 cm anterolisthesis on S1. Rel atively symmetric mild increased uptake at the bilateral ischial tuberosities consistent with ischial bursitis. No suspicious lytic, blastic or FDG avid bone lesions to suggest osseous metastatic diseas e. IMPRESSION: 1. Moderate increased FDG uptake associated with a 3.7 x 1.9 cm biopsy-proven right breast mass consi stent with primary breast cancer. 2. 1-1.5 cm FDG avid nodule at the central left adrenal gland suspicious for metastatic diseas
[2023-08-21 09:44] LABS: Glucose Point of Care 88 mg/dl (65-105)
== END 2023-08-21 09:27 | disposition home or self-care (01) ==
PROVIDERS: Visit Provider Internal Medicine Hematology & Oncology
DX: C78.01 Secondary malignant neoplasm of right lung (principal); C50.919 Malignant neoplasm of unspecified site of unspecified female breast; Z17.0 Estrogen receptor positive status [ER+]; J43.9 Emphysema, unspecified
CPT/HCPCS: 78815; A9552

== ENCOUNTER 2023-08-30 15:12 | Outpatient (CLI) | payer MEDICARE, SELFPAY ==
[2023-08-30 17:22] LABS: Appearance Urine Turbid (Clear); Bacteria Urine 4+ /hpf; Bilirubin Urine Negative (Negative); Blood Urine 1+ (Negative); Color Urine Yellow (Yellow); Glucose Urine UA Negative (Negative); Ketones Urine Trace mg/dL (Negative); Leukocyte Esterase Ur 3+ LEU/UL (Negative); Need Manual Microscopic Reviewed; Nitrate Urine Negative (Negative); Protein Urine 1+ mg/dL (Negative); RBC Urine >100 /hpf (0-2); Specific Grav Ur 1.015 (1.001-1.035); Squamous Epithelial Cell Urine Moderate /hpf (Few); WBC Urine >100 /hpf (0-3)
[2023-08-30 17:27] LABS: Add Urine Microscopic? YES
== END 2023-08-30 15:13 | disposition home or self-care (01) ==
LOC: ANHLAB 15:13
PROVIDERS: Visit Provider Internal Medicine Hematology & Oncology
DX: R30.0 Dysuria (principal)
CPT/HCPCS: 81001; 87077; 87086; 87088

== ENCOUNTER 2023-09-14 16:52 | Outpatient (CLI) | payer MEDICARE, SELFPAY ==
--- NOTE | ~2023-09-14 | MR_ITS ---
MRI of the abdomen: Clinical indication: Adrenal mass. Technique: Coronal SSFSE ARC, WATER:coronal LAVA-FLEX, Coronal 2D FIESTA FatSat, Axial SSFSE BH ARC, Axial 3D DualEcho BH, Axial SSFSE-IR, Axial DWI b=500, Axial 2D FIESTA FatSat, pre and dynamic postco ntrast Axial LAVA ARC, postcontrast Coronal In and Opposed phase LAVA FLEX. Following intravenous adm inistration of 9 cc MultiHance gadolinium, T1-weighted fat-sat imaging was performed in the axial and coronal planes. Comparison CT scan dated 07/17/2023 Findings: Gallbladder unremarkable. The common bile duct is dilated proximally up to up to 11 mm. No filling defects are seen within the CBD. No evidence of intrahepatic biliary ductal dilatation. The pancreatic duct is normal in size. There is mild central intrahepatic biliary dilatation. Small hepatic cysts are present. Spleen, pancr eas, right adrenal gland,, kidneys appear normal. Left adrenal nodule demonstrates signal drop-off on out of phase images relative to in phase images, compatible with adenoma. In addition, lateral, and appears similar in appearance to prior CT images from PET/CT scan dated 09/08/2015. There is probable extensive atherosclerotic change of the aorta and proximal iliac vessels. No retrop eritoneal lymphadenopathy identified. 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 Small metastatic lesion is difficult to completely exclude given technical limitations of the MRI. Consider follow-up exam. Reviewed, dictated and finalized at [facility]. 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 Small metastatic lesion is di fficult to completely exclude given technical limitations of the MRI. Consider follow-up exam.
== END 2023-09-14 16:53 | disposition home or self-care (01) ==
LOC: ANHIMG 16:56
PROVIDERS: Visit Provider Internal Medicine Hematology & Oncology
DX: E27.8 Other specified disorders of adrenal gland (principal)
CPT/HCPCS: 74183; A9577

== ENCOUNTER 2023-12-04 10:18 | Emergency (ER) | payer MEDICARE, SELFPAY ==
--- NOTE | ~2023-12-04 | XR_ITS ---
Clinical Indication: Hypoxia AP and lateral views of the chest: Comparison: 07/17/2023 Findings: The lungs are clear, without evidence of focal consolidation or pleural effusion. Probable COPD. Cardiomediastinal silhouette is within normal limits. Bones and soft tissues are unremarkable. Impression: COPD pattern. No acute abnormality seen. Reviewed, dictated and finalized at location . Impression: COPD pattern. No acute abnormality seen.
[2023-12-04 10:20] VITALS: BP 144/69; PULSE 107; RESP 16; TEMP 36.7; O2SAT 93
[2023-12-04 11:12] LABS: Influenza A QL RT-PCR Negative (Negative); Influenza B QL RT-PCR Negative (Negative); RSV RNA, RT-PCR Negative (Negative); SARS-CoV-2 RNA PCR Negative (Negative)
[2023-12-04 12:28] VITALS: BP 161/72; PULSE 78; RESP 24; TEMP 36.9; O2SAT 94
--- NOTE | 2023-12-04 13:20 | PC.NURSE ---
Patient's oxygen dropped to 75% after ambulating approx 10 yards to and from the bathroom. Patient reports she experiences dyspnea with ambulation. Patient oxygen steadily returned to her baseline after resting in the stretcher.
--- NOTE | 2023-12-04 13:32 | ED.FEMALEGU ---
HPI - Female Genitourinary General Chief complaint: Urogenital-Female Stated complaint: UTI/COVID Time Seen by Provider: 12/04/23 12:32 History of Present Illness HPI Narrative: 88 Year old female with a history of breast cancer, COPD, carotid stenosis presenting with urinary frequency and abnormal smell. States that for the last week or so she has noticed that she has recurred urinating much more frequently than she feels she can not completely empty her bladder. States that she has also noticed that things taste abnormal. States that she is always short of breath right when she starts walking but it improves. She denies increased shortness of breath. She denies chest or abdominal pain. No nausea or vomiting. No leg swelling. She continues to smoke 2-3 cigarettes a day, states that she used to have an oxygen machine at home but she was not using it so she returned it. Related Data Home Medications Medication Instructions Recorded Confirmed multivitamin 1 tablet PO DAILY 07/17/23 07/17/23 ferrous sulfate 325 mg (65 mg 325 mg PO DAILY 10/08/23 iron) tablet Allergies Allergy/AdvReac Type Severity Reaction Status Date / Time No Known Allergies Allergy Verified 10/08/23 08:59 Review of Systems Review of Systems: All systems reviewed & are unremarkable except as noted in HPI and below PMFSH Past Medical History Medical History Breast cancer Esophageal ring Social History Social History Smoking status: Current every day smoker Tobacco type: cigarettes Second hand tobacco smoke exposure: Yes Alcohol intake: never Substance use: never Substance use type: does not use Do You Feel Safe in your Home?: Yes Lack of Transportation: No Lack of Food: Never True Current Housing: I Have Housing Concerned About Future Housing: No Difficulty Paying Gas/Electric Bills: No Difficulty Paying for Meds: No Currently Unemployed: No Education: High School Diploma/GED Difficulty w/ Childcare or Family Care: No Spiritual care concerns: No Exam Narrative: GENERAL: Nontoxic, no acute distress, pleasant cooperative HEAD: Normocephalic, atraumatic. EYES: PERRLA and EOMI. ENT: grossly unremarkable NECK: Supple. CHEST: very diminished breath sounds bilaterally, saturating 90-91% on room air HEART: Regular rate and rhythm ABDOMEN: Soft, nontender, nondistended EXTREMITIES: Normal range of motion. No edema. SKIN: Warm, dry, no rash. NEURO: No focal deficits. Alert and oriented x3. PSYCH: Normal mood and affect. Course Vital Signs Vital signs: Vital Signs Temperature 98.0 F 12/04/23 10:20 Pulse Rate 107 H 12/04/23 10:20 Respiratory Rate 16 12/04/23 10:20 Blood Pressure 144/69 H 12/04/23 10:20 Pulse Oximetry 93 12/04/23 10:20 Oxygen Delivery Room Air 12/04/23 10:20 Temperature 97.9 F 12/04/23 15:10 Pulse Rate 82 12/04/23 15:10 Respiratory Rate 20 12/04/23 15:10 Blood Pressure 154/66 H 12/04/23 15:10 Pulse Oximetry 89 L 12/04/23 15:10 Oxygen Delivery Room Air 12/04/23 10:20 MDM - Female Genitourinary MDM Narrative Medical decision making narrative: 88-year-old female presenting with urinary complaints as well as changes in her taste. Patient is saturating 90-91% on room air. She did to the 80s with ambulation. Patient denies worsening shortness of breath. She does have very diminished breath sounds bilaterally and states that she has a history of COPD and she continues to smoke. Will give her a breathing treatment, plan for labs, chest x-ray, COVID, urine. patient declines breathing treatment. Blood work without significant abnormality. Chest x-ray shows COPD pattern. No acute abnormalities. UA is concerning for UTI. Patient given a dose of Rocephin. Feel she is safe for outpatient management. Will send in f
[2023-12-04] MEDS: SODIUM CHLORIDE 0.9% IV 1,000 ML 999 ML IV CONT (13:45)
[2023-12-04 13:46] LABS: Basophils Percent Auto 0.7 % (0.2-1.2); Eosinophils Absolute Auto 0.1 K/mm3 (0-0.3); Hematocrit 43.7 % (37.0-47.0); Hemoglobin 14.3 g/dL (12.0-15.0); Immature Granulocyte Absolute 0.02 K/mm3 (0.00-0.031); Immature Granulocyte Percent A 0.4 % (0-0.5); Lymphocytes Absolute Auto 1.25 K/mm3 (0.9-3.2); Lymphocytes Percent Auto 23.1 % (18.3-44.2); Mean Corpuscular HGB Conc 32.7 g/dl (32-36); Mean Corpuscular Hemoglobin 30.6 pg (26-34); Mean Corpuscular Volume 93.4 fl (80-100); Mean Platelet Volume 9.1 fl (7.4-10.4); Monocytes Absolute Auto 0.9 K/mm3 (0.1-0.6); Monocytes Percent Auto 15.7 % (2.6-8.5); Neutrophils Absolute Auto 3.1 K/mm3 (1.3-6.7); Neutrophils Percent Auto 58.1 % (45.5-73.1); Platelet Count Result 232 k/mm3 (150-375); Red Blood Count 4.68 M/mm3 (4.2-5.4); White Blood Count 5.4 K/mm3 (4.5-10.0)
[2023-12-04 13:58] LABS: Add Urine Microscopic? YES; Appearance Urine Cloudy (Clear); Bacteria Urine 4+ /hpf; Bilirubin Urine Negative (Negative); Blood Urine Negative (Negative); Color Urine Yellow (Yellow); Glucose Urine UA Negative (Negative); Ketones Urine Trace mg/dL (Negative); Leukocyte Esterase Ur 2+ LEU/UL (Negative); Need Manual Microscopic Need Manual; Nitrate Urine Negative (Negative); Protein Urine Negative (Negative); Specific Grav Ur 1.013 (1.001-1.035); Squamous Epithelial Cell Urine Few /hpf (Few); Urobilinogen Urine 0.2 mg/dL (<2.0); WBC Urine 21-50 /hpf (0-3)
[2023-12-04 14:00] LABS: Alanine Aminotransferase 17 U/L (6-35); Albumin Level 4.1 g/dL (3.5-5.1); Alkaline Phosphatase 68 U/L (38-126); Anion Gap 6 mmol/L (4-12); Aspartate Amino Transferase 31 U/L (14-36); Bilirubin,Total 0.5 mg/dL (0.2-1.3); Blood Urea Nitrogen 15 mg/dL (7-17); Calcium 9.2 mg/dL (8.4-10.2); Carbon Dioxide 32 mmol/L (22-30); Chloride 98 mmol/L (98-107); Estimated CRCL calculation 36 ml/min; Estimated Glomerular Filt Rate > 60; Glucose 89 mg/dL (65-110); Potassium 4.4 mmol/L (3.4-5.0); Sodium 136 mmol/L (137-145)
[2023-12-04 14:09] LABS: Calcium Oxalate Crystals Urine Present /hpf
[2023-12-04 14:10] LABS: RBC Urine 0-2 /hpf (0-2)
[2023-12-04] MEDS: cefTRIAXone 2 GM/NS 100 ML 2 GM/100 ML BAG IVPB (14:49)
[2023-12-04 15:10] VITALS: BP 154/66; PULSE 82; RESP 20; TEMP 36.6; O2SAT 89
[2023-12-04 16:02] VITALS: BP 152/71; PULSE 81; RESP 24; TEMP 36.7; O2SAT 90
== END 2023-12-04 16:04 | disposition home or self-care (01) ==
PROVIDERS: Student in an Organized Health Care Education/Training Program; Emergency Provider Emergency Medicine
DX: N39.0 Urinary tract infection, site not specified (principal); J44.9 Chronic obstructive pulmonary disease, unspecified; Z20.822 Contact with and (suspected) exposure to COVID-19; I65.29 Occlusion and stenosis of unspecified carotid artery; F17.210 Nicotine dependence, cigarettes, uncomplicated; Z85.3 Personal history of malignant neoplasm of breast
CPT/HCPCS: 36415; 71046; 80053; 81001; 85025; 87077; 87086; 87088; 87637; 96361; 96365; 99284; J0696; J7030

== ENCOUNTER 2023-12-06 14:20 | Outpatient (CLI) | payer MEDICARE, SELFPAY ==
[2023-12-06 14:37] LABS: Basophils Percent Auto 0.7 % (0.2-1.2); Eosinophils Absolute Auto 0.2 K/mm3 (0-0.3); Eosinophils Percent Auto 3.6 % (0-4.4); Hematocrit 43.1 % (37.0-47.0); Immature Granulocyte Absolute 0.01 K/mm3 (0.00-0.031); Immature Granulocyte Percent A 0.2 % (0-0.5); Lymphocytes Absolute Auto 1.01 K/mm3 (0.9-3.2); Lymphocytes Percent Auto 17.4 % (18.3-44.2); Mean Corpuscular HGB Conc 32.5 g/dl (32-36); Mean Corpuscular Hemoglobin 29.9 pg (26-34); Mean Corpuscular Volume 92.1 fl (80-100); Mean Platelet Volume 9.1 fl (7.4-10.4); Monocytes Percent Auto 16.7 % (2.6-8.5); Neutrophils Absolute Auto 3.6 K/mm3 (1.3-6.7); Neutrophils Percent Auto 61.4 % (45.5-73.1); Platelet Count Result 252 k/mm3 (150-375); Red Blood Count 4.68 M/mm3 (4.2-5.4); Red Cell Distribution Width 13.9 % (11.5-14.5); White Blood Count 5.8 K/mm3 (4.5-10.0)
[2023-12-06 14:42] LABS: Blood Urea Nitrogen 19 mg/dL (8-26); Carbon Dioxide 27 mmol/L (22-30); Chloride 101 mmol/L (98-109); Estimated Glomerular Filt Rate 59; Glucose 103 mg/dL (70-105); Ionized Calcium (POC) 1.26 mmol/L (1.11-1.31); Potassium 3.8 mmol/L (3.5-4.9); Sodium 139 mmol/L (138-146)
[2023-12-06 16:31] LABS: Alanine Aminotransferase 19 U/L (6-35); Albumin Level 4.1 g/dL (3.5-5.1); Alkaline Phosphatase 60 U/L (38-126); Anion Gap 9 mmol/L (4-12); Aspartate Amino Transferase 27 U/L (14-36); Bilirubin,Total 0.2 mg/dL (0.2-1.3); Blood Urea Nitrogen 20 mg/dL (7-17); Calcium 9.7 mg/dL (8.4-10.2); Carbon Dioxide 28 mmol/L (22-30); Chloride 99 mmol/L (98-107); Estimated Glomerular Filt Rate > 60; Glucose 101 mg/dL (65-110); Potassium 3.8 mmol/L (3.4-5.0); Sodium 136 mmol/L (137-145)
[2023-12-08 11:18] LABS: CA 15-3 27 U/mL (<32)
== END 2023-12-06 14:21 | disposition home or self-care (01) ==
LOC: ANHLAB 14:22
PROVIDERS: Visit Provider Internal Medicine Hematology & Oncology
DX: C50.919 Malignant neoplasm of unspecified site of unspecified female breast (principal); Z17.0 Estrogen receptor positive status [ER+]
CPT/HCPCS: 36415; 80047; 80053; 85025; 86300

== ENCOUNTER 2023-12-14 09:52 | Outpatient (CLI) | payer MEDICARE, SELFPAY ==
--- NOTE | 2023-12-14 | ECHO_ITS ---
Patient Info Name: Valeria Deutsch Age: 88 years : 1935 Gender: Female Ht: 64 in Wt: 98 lbs BSA: 1.40 m2 HR: 92 bpm BP: 149 / 78 mmHg Technical Quality: Good Exam Date: 12/14/2023 10:16 AM Exam Location: Echo Lab Patient Status: Outpatient Admit Date: 12/14/2023 Staff Ordering Physician: Reymundo Lee MD Neurodiagnostic Technologist: Brandi Campbell RDCS Attending Provider: Reymundo Lee MD Referring Physician: Jesus HERNANDES; Exam Type: CA echo doppler color flow Study Info Indications C50.919 - MALIGNANT NEOPLASM OF BREAST IN FEMALE, ESTROGEN RECEPTOR POSITIVE Complete two-dimensional, color flow and Doppler transthoracic echocardiogram is performed. Strain analysis performed. Summary 1. Complete two-dimensional, color flow and Doppler transthoracic echocardiogram is performed. 2. Left ventricular chamber dimension is normal. 3. Left ventricular systolic function is hyperdynamic, estimated at >70%. 4. The left ventricular diastolic function is abnormal. 5. E/e' 10 is mildly elevated. 6. Global longitudinal strain is normal at -19.9%. 7. The mitral valve has moderately calcified annulus. 8. There is mild mitral valve regurgitation. 9. There is mild tricuspid valve regurgitation. 10. No pulmonary hypertension, estimated pulmonary arterial systolic pressure is 30 mmHg. Left Ventricle E/e' 10 is mildly elevated. Global longitudinal strain is normal at -19.9%. Left ventricular chamber dimension is normal. Left ventricular systolic function is hyperdynamic, estimated at >70%. The left ventricular diastolic function is abnormal. Right Ventricle Right ventricular chamber dimension is normal. Right ventricular systolic function is normal. Left Atria Left atrial chamber dimension is normal. Right Atria Right atrial chamber dimension is normal. Aortic Valve The aortic valve is trileaflet. There is no aortic valve stenosis. There is no aortic valve regurgitation. Pulmonic Valve There is no pulmonic regurgitation. Mitral Valve The mitral valve has moderately calcified annulus. There is no mitral valve stenosis. There is mild mitral valve regurgitation. Tricuspid Valve There is mild tricuspid valve regurgitation. No pulmonary hypertension, estimated pulmonary arterial systolic pressure is 30 mmHg. Pericardium/Pleural There is no pericardial effusion. Inferior Vena Cava Normal inferior vena cava with >50% collapse upon inspiration consistent with normal right atrial pressure, 5 mmHg. Aorta The aortic root size at the sinus of Valsalva is normal. Left Ventricular Outflow Tract Name Value Normal LVOT 2D LVOT Diameter 2.0 cm LVOT Doppler LVOT Peak Gradient 3 mmHg LVOT Mean Gradient 2 mmHg LVOT VTI 19 cm LVOT VTI/AV VTI Ratio 0.9 LVOT Stroke Volume 59 ml LVOT CO 4.7 l/min LVOT CI 3.4 l/min/m2 Pulmonic Valve Name Value Normal
== END 2023-12-14 09:53 | disposition home or self-care (01) ==
LOC: ANHCARD 09:55
PROVIDERS: PCP Internal Medicine Hematology & Oncology; Visit Provider Internal Medicine Hematology & Oncology
DX: C50.919 Malignant neoplasm of unspecified site of unspecified female breast (principal); Z17.0 Estrogen receptor positive status [ER+]; I34.0 Nonrheumatic mitral (valve) insufficiency; I36.1 Nonrheumatic tricuspid (valve) insufficiency
CPT/HCPCS: 93306

== ENCOUNTER 2024-01-17 12:44 | Outpatient (CLI) | payer MEDICARE, SELFPAY ==
[2024-01-17 13:05] LABS: Basophils Percent Auto 0.4 % (0.2-1.2); Eosinophils Absolute Auto 0.1 K/mm3 (0-0.3); Eosinophils Percent Auto 2.2 % (0-4.4); Hematocrit 41.3 % (37.0-47.0); Hemoglobin 13.2 g/dL (12.0-15.0); Immature Granulocyte Absolute 0.01 K/mm3 (0.00-0.031); Immature Granulocyte Percent A 0.2 % (0-0.5); Lymphocytes Absolute Auto 1.41 K/mm3 (0.9-3.2); Lymphocytes Percent Auto 28.4 % (18.3-44.2); Mean Corpuscular Hemoglobin 30.3 pg (26-34); Mean Corpuscular Volume 94.7 fl (80-100); Monocytes Absolute Auto 0.7 K/mm3 (0.1-0.6); Monocytes Percent Auto 14.1 % (2.6-8.5); Neutrophils Absolute Auto 2.7 K/mm3 (1.3-6.7); Neutrophils Percent Auto 54.7 % (45.5-73.1); Platelet Count Result 233 k/mm3 (150-375); Red Blood Count 4.36 M/mm3 (4.2-5.4); Red Cell Distribution Width 14.7 % (11.5-14.5)
[2024-01-17 13:50] LABS: Alanine Aminotransferase 17 U/L (6-35); Albumin Level 4.3 g/dL (3.5-5.1); Alkaline Phosphatase 59 U/L (38-126); Anion Gap 6 mmol/L (4-12); Aspartate Amino Transferase 27 U/L (14-36); Bilirubin,Total 0.5 mg/dL (0.2-1.3); Blood Urea Nitrogen 16 mg/dL (7-17); Calcium 9.5 mg/dL (8.4-10.2); Carbon Dioxide 30 mmol/L (22-30); Chloride 101 mmol/L (98-107); Estimated Glomerular Filt Rate > 60; Glucose 78 mg/dL (65-110); Potassium 4.4 mmol/L (3.4-5.0); Sodium 137 mmol/L (137-145)
[2024-01-19 02:49] LABS: CA 15-3 31 U/mL (<32)
== END 2024-01-17 12:45 | disposition home or self-care (01) ==
LOC: ANHLAB 12:46
PROVIDERS: PCP Internal Medicine Hematology & Oncology; Visit Provider Internal Medicine Hematology & Oncology
DX: C50.919 Malignant neoplasm of unspecified site of unspecified female breast (principal); Z17.0 Estrogen receptor positive status [ER+]
CPT/HCPCS: 36415; 80053; 85025; 86300

== ENCOUNTER 2024-04-23 05:27 | Inpatient (IN) | payer MEDICARE, SELFPAY ==
[2024-04-23] VITALS (18 sets, daily range): BP systolic 141–183; BP diastolic 58–78; PULSE 77–93; RESP 16–20; TEMP 35.9–37.4; O2SAT 86–100; BMI 19.0
--- NOTE | ~2024-04-23 | CT_ITS ---
EXAMINATION: CT hip RT wo con DATE: 04/23/2024 09:38 INDICATION: Right hip injury. TECHNIQUE: Computed tomography (CT) of the right hip was performed without intravenous contrast. Auto mated exposure control and iterative reconstruction technique were employed. The dose-length product was 420.83 mGy-cm. COMPARISON: Right hip radiographs 04/23/2024 FINDINGS: Alignment is normal. There are nondisplaced insufficiency fractures of right superior and i nferior pubic rami. 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 IMPRESSION: 1. Nondisplaced insufficiency fractures of right superior and inferior pubic rami. Reviewed, dictated and finalized at location A. ICATING MACHINE OPERATOR IMPRESSION: 1. Nondisplaced insufficiency fractures of right superior and inferior pubic ra mi.
--- NOTE | ~2024-04-23 | CT_ITS ---
EXAMINATION: CT cervical spine wo con DATE: 04/23/2024 19:25 INDICATION: Neck pain after fall TECHNIQUE: Computed tomography (CT) of the cervical spine was performed without intravenous contrast. The dose-length product was 100 mGy-cm. Automated exposure control and iterative reconstruction tech [employer] were employed. COMPARISON: None FINDINGS: There is disc narrowing at C3-4, C4-5, C5-6 and C6-7. Odontoid process is normal. Craniover tebral junction is normal. There is multilevel uncinate and facet hypertrophy. There are emphysematou s changes in the lung apices. No paraspinal soft tissue abnormality. There is carotid atherosclerosis . IMPRESSION: 1. No acute abnormality of the cervical spine. 2: Moderate-severe cervical spondylosis. Reviewed, dictated and finalized at location A. PHERAL EDP EQUIPMENT OPERATOR
--- NOTE | ~2024-04-23 | XR_ITS ---
XR chest 2V Ordering provider: Isaac Chavez MD History: 88 years Female with . Fall/SOA . Comparison: 12/04/2023 FINDINGS: MEDIASTINUM: The cardiac silhouette is not enlarged. LUNGS: No effusions or pneumothorax. Opacification in the left lung base is seen. Underlying fibrotic /emphysematous changes. OTHER: No free air under the diaphragm. Degenerative changes of the spine. IMPRESSION: Left basilar atelectasis versus pneumonia. Reviewed, dictated and finalized at location A. ER HELPER
--- NOTE | ~2024-04-23 | XR_ITS ---
AP and lateral views of the right femur Clinical History: Pain Findings: No acute fracture or dislocation is seen. Osseous alignment is anatomic. Visualized joint s paces are grossly preserved. Soft tissues are unremarkable. Impression: Unremarkable right femoral radiographs. Reviewed, dictated and finalized at location M. T CLERK Impression: Unremarkable right femoral radiographs.
--- NOTE | ~2024-04-23 | XR_ITS ---
AP and lateral views of the right hip Clinical history: Pain Findings: No acute fracture or dislocation is seen. Osseous alignment is anatomic. Right hip joint is intact. Soft tissues are unremarkable. Impression: No significant abnormality is seen. Reviewed, dictated and finalized at location M. ITORY ACCOUNT REPRESENTATIVE Impression: No significant abnormality is seen.
[2024-04-23] MEDS: IPRATROPIUM 0.5 MG/ALBUTEROL SULFATE 2.5 MG AMPUL.NEB 3 ML INHALATION ×3 (07:48→21:20)
[2024-04-23 07:56] LABS: Add Urine Microscopic? YES; Appearance Urine Cloudy (Clear); Bacteria Urine 1+ /hpf; Bilirubin Urine Negative (Negative); Blood Urine Negative (Negative); Color Urine Yellow (Yellow); Glucose Urine UA Negative (Negative); Ketones Urine Negative (Negative); Leukocyte Esterase Ur 2+ LEU/UL (Negative); Need Manual Microscopic Reviewed; Nitrate Urine Negative (Negative); Non Pathogenic Casts 0-2; Protein Urine Negative (Negative); Specific Grav Ur 1.009 (1.001-1.035); Squamous Epithelial Cell Urine Few /hpf (Few); Urobilinogen Urine 0.2 mg/dL (<2.0); WBC Urine 21-50 /hpf (0-3)
[2024-04-23] MEDS: SODIUM CHLORIDE 0.9% IV 1,000 ML 999 ML IV CONT (08:25)
[2024-04-23 09:13] LABS: Basophils Percent Auto 0.2 % (0.2-1.2); Eosinophils Percent Auto 0.2 % (0-4.4); Hematocrit 42.8 % (37.0-47.0); Hemoglobin 13.9 g/dL (12.0-15.0); Immature Granulocyte Absolute 0.09 K/mm3 (0.00-0.031); Immature Granulocyte Percent A 0.7 % (0-0.5); Lymphocytes Percent Auto 9.2 % (18.3-44.2); Mean Corpuscular HGB Conc 32.5 g/dl (32-36); Mean Corpuscular Hemoglobin 30.6 pg (26-34); Mean Corpuscular Volume 94.3 fl (80-100); Mean Platelet Volume 9.7 fl (7.4-10.4); Monocytes Absolute Auto 0.8 K/mm3 (0.1-0.6); Monocytes Percent Auto 6.4 % (2.6-8.5); Neutrophils Absolute Auto 10.9 K/mm3 (1.3-6.7); Neutrophils Percent Auto 83.3 % (45.5-73.1); Platelet Count Result 207 k/mm3 (150-375); Red Blood Count 4.54 M/mm3 (4.2-5.4); Red Cell Distribution Width 14.7 % (11.5-14.5)
[2024-04-23 09:29] LABS: Alanine Aminotransferase 25 U/L (6-35); Albumin Level 4.2 g/dL (3.5-5.1); Alkaline Phosphatase 77 U/L (38-126); Anion Gap 7 mmol/L (4-12); Aspartate Amino Transferase 32 U/L (14-36); Blood Urea Nitrogen 11 mg/dL (7-17); Calcium 9.2 mg/dL (8.4-10.2); Carbon Dioxide 30 mmol/L (22-30); Chloride 102 mmol/L (98-107); Estimated Glomerular Filt Rate > 60; Glucose 113 mg/dL (65-110); Potassium 3.9 mmol/L (3.4-5.0); Sodium 139 mmol/L (137-145)
[2024-04-23 09:37] LABS: NT Pro B Type Natriuretic Pept 629 pg/mL (19.9-100)
[2024-04-23 09:49] LABS: Influenza A QL RT-PCR Negative (Negative); Influenza B QL RT-PCR Negative (Negative); RSV RNA, RT-PCR Negative (Negative); SARS-CoV-2 RNA PCR Negative (Negative)
[2024-04-23] MEDS: ACETAMINOPHEN ELIXIR 325 MG/10.15 ML UDC 650 MG PO (09:49)
--- NOTE | 2024-04-23 10:09 | ED_ITS ---
HPI - Fall General Chief Complaint: Fall Stated Complaint: R HIP & LEG PAIN S/P GLF Time Seen by Provider: 04/23/24 07:05 History of Present Illness HPI Narrative: Patient is an 88-year-old female who presents ER after having a fall at home. Unsure if she lost consciousness. Has pain in her right hip. She is able to move it but was not able to bear weight. No numbness or tingling in the extremity. She is not on blood thinners but does take aspirin. She has had some cough. No reported fevers. Related Data Home Medications ?Medication ?Instructions ?Recorded ?Confirmed ?Last Taken ?Type multivitamin 1 tablet PO DAILY 07/17/23 04/23/24 04/22/24 History Allergies Allergy/AdvReac Type Severity Reaction Status Date / Time No Known Allergies Allergy Verified 10/08/23 08:59 Review of Systems 2 Review of Systems: All systems reviewed & are unremarkable except as noted in HPI and below Constitutional: Constitutional: Reports no additional constitutional complaints Cardiovascular: Cardiovascular: Reports no additional cardiovascular complaints Respiratory: Respiratory: Reports no additional respiratory complaints Gastrointestinal: Gastrointestinal: Reports no additional gastrointestinal complaints Musculoskeletal: Musculoskeletal: Reports no additional musculoskeletal complaints [facility] Past Medical History Medical History Breast cancer COPD (chronic obstructive pulmonary disease) Stroke GERD (gastroesophageal reflux disease) Carotid stenosis Esophageal ring Social History Social History Smoking status: Current every day smoker Second hand tobacco smoke exposure: Yes Alcohol intake: never Substance use: never Substance use type: does not use Do You Feel Safe in your Home?: Yes Lack of Transportation: No Lack of Food: Never True Current Housing: I Have Housing Concerned About Future Housing: No Difficulty Paying Gas/Electric Bills: No Difficulty Paying for Meds: No Currently Unemployed: No Education: High School Diploma/GED Difficulty w/ Childcare or Family Care: No Spiritual care concerns: No Exam 2 Narrative: GENERAL: Well-appearing, well-nourished, and in no acute distress. HEAD: Normocephalic, atraumatic. ENT: Mucous membranes moist. CHEST: Clear to auscultation. No respiratory distress. HEART: Regular rate and rhythm. Normal peripheral pulses. ABDOMEN: Soft, nontender, nondistended. EXTREMITIES: Normal range of motion. No edema. No point tenderness of the right hip. SKIN: Warm, dry, no rash. NEURO: Alert and oriented x3. PSYCH: Normal mood and affect. Course Course Emergency Course: Patient with pelvic fracture as well as pneumonia and hypoxia. Admit to hospitalist service. Orthopedic surgery consulted. Family bedside and educated on diagnosis and treatment plan. Vital Signs Vital signs: Vital Signs Temperature 97.4 F L 04/23/24 05:19 Pulse Rate 81 04/23/24 05:19 Respiratory Rate 18 04/23/24 05:19 Blood Pressure 161/73 H 04/23/24 05:19 Pulse Oximetry 94 04/23/24 05:19 Oxygen Delivery Room Air 04/23/24 05:19 Temperature 96.9 F L 04/23/24 13:53 Pulse Rate 81 04/23/24 14:10 Respiratory Rate 16 04/23/24 14:10 Blood Pressure 153/58 H 04/23/24 13:53 Pulse Oximetry 93 04/23/24 13:53 Oxygen Delivery Nasal Cannula 04/23/24 12:30 Oxygen Flow Rate 2 04/23/24 12:30 MDM - Fall Lab Data 04/23/24 09:00 04/23/24 09:00 Labs: Lab Results 04/23/24 04/23/24 04/23/24 Range/Units 06:59 09:00 09:00 WBC 13.0 H (4.5-10.0) K/mm3 RBC 4.54 (4.2-5.4) M/mm3 Hgb 13.9 (12.0-15.0) g/dL Hct 42.8 (37.0-47.0) % MCV 94.3 (80-100) fl MCH 30.6 (26-34) pg MCHC 32.5 (32-36) g/dl RDW 14.7 H (11.5-14.5) % Plt Count 207 (150-375) k/mm3 MPV 9.7 (7.4-10.4) fl Immature Gran % (Auto) 0.7 H (0-0.5) % Neut % (Auto) 83.3 H (45.5-73.1) % Lymph % (Auto) 9.2 L (18.3-44.2) % [place] % (Auto) 6.4 (2.6-8.5) % Eos % (Auto) 0.2 (0-4.4) % Baso % (Auto) 0.2 (0.2-1.2) % Lymph # (Auto) 1.20 (0.9-3.2) K/mm3 [place] # (Auto) 0.8 H (0.1-0.6) K/mm3 Eos # (Auto) 0.0 (0-0.3) K/mm3 Baso # (Auto) 0.0 (0.0-0.1) K/mm3 Abs Immat Gran (auto) 0.09 H (0.00-0.031) K/mm3 Absolute Neuts (auto) 10.9 H (1.3-6.7) K/mm3 Absolute Nucleated RBC 0.000 (0.0-0.012) K/mm3 Nucleated RBC % 0.0 (0.0-0.2) % Sodium 139 (137-145) mmol/L Potassium 3.9 (3.4-5.0) mmol/L Chloride 102 (98-107) mmol/L Carbon Dioxide 30 (22-30) mmol/L Anion Gap 7 (4-12) mmol/L BUN 11 D (7-17) mg/dL Creatinine 0.56 L (0.7-1.0) mg/dL Estim Creat Clear Calc Not Reportable Estimated GFR > 60 (59 - ) Glucose 113 H (65-110) mg/dL Calcium 9.2 (8.4-10.2) mg/dL Total Bilirubin 1.0 (0.2-1.3) mg/dL AST 32 (14-36) U/L ALT 25 (6-35) U/L Alkaline Phosphatase 77 (38-126) U/L NT-Pro-B Natriuret Pep 629 H Cancelled (19.9-100) pg/mL Total Protein 7.0 (6.3-8.2) g/dL Albumin 4.2 (3.5-5.1) g/dL Urine Color Yellow (Yellow) Urine Appearance Cloudy H (Clear) Urine pH 8.0 (5.0-9.0) Ur Specific [place] 1.009 (1.001-1.035) Urine Protein Negative (Negative) mg/dL Urine Glucose (UA) Negative (Negative) mg/dL Urine Ketones Negative (Negative) mg/dL Ur Blood (Man) Negative (Negative) Urine Nitrate Negative (Negative) Urine Bilirubin Negative (Negative) Urine Urobilinogen 0.2 (<2.0) mg/dL Add Ur Microanalysis Reviewed Leukocyte Esterase Rfl 2+ H (Negative) JULIO/UL Urine RBC 6-10 H (0-2) /hpf Urine WBC 21-50 H (0-3) /hpf Ur Squamous Epith Cells Few (Few) /hpf Urine Bacteria 1+ H /hpf Urine Casts 0-2 Influenza A (RT-PCR) Negative (Negative) Influenza B (RT-PCR) Negative (Negative) RSV (RT-PCR) Negative (Negative) SARS-CoV-2 RNA (RT-PCR) Negative (Negative) Imaging Data Radiologist's impression: ITS Impressions Femur X-Ray 04/23/24 06:41 Impression: Unremarkable right femoral radiographs. Hip X-Ray 04/23/24 06:41 Impression: No significant abnormality is seen. Chest X-Ray 04/23/24 08:22 IMPRESSION: Left basilar atelectasis versus pneumonia. Hip CT 04/23/24 09:38 IMPRESSION: 1. Nondisplaced insufficiency fractures of right superior and inferior pubic rami. Critical Care Time Critical Care Time Critical Care Time: Yes Total Critical Care Time: 35 Discharge Plan Discharge Clinical Impression: Fracture of pubic ramus, Pneumonia, Hypoxia Patient Disposition: Still a Patient Condition: Stable
[2024-04-23] MEDS: MORPHINE SULFATE (*CRX) 2 MG/ML INJ IV PUSH (10:39)
[2024-04-23] MEDS: AZITHROMYCIN 500 MG/NS 250 ML 500 MG/250 ML BAG 250 MG IVPB (11:33)
--- NOTE | 2024-04-23 12:09 | ADMGEN ---
This patient, Valeria Deutsch, was admitted to 3 Med Surg Room 304-02. Patient/family oriented to hospital policies and general routines including ID bracelet, bed and alarms, visiting hours, pain management, procedures, bathroom and other care routines, personal items, smoking policy, room service/diet, and visiting hours. Information on how to activate the Rapid Response Team has been discussed. Patient/Family are encouraged to report perceived risks to care and to ask questions if they do not understand what they are told or what they should do.
--- NOTE | 2024-04-23 12:15 | P.HP_ITS ---
H&P: HPI History of Present Illness Date/Time: 04/23/24 12:15 Chief Complaint: Fall Narrative: 88 y/o F presents here with fall with PMH of breast cancer (currently on oral chemo, seen at [facility]), carotid stenosis, CVA (seen on MRI), and COPD. The patient presents here from home via EMS for further evaluation of right hip pain s/p ground level fall. The patient reports this morning she got up to use the restroom around 0400. She reports that she has some dizziness at baseline when she goes from laying to standing. She typically sits on the edge of the bed until the dizziness subsides. This morning she did her typical routine and sat on the edge of the bed until the dizziness passed. She then stood, lost her balance, and fell backwards onto her right side. She was then able to crawl to a telephone to call 911. Patient denies head strike or loss of consciousness. However is reporting some occipital/upper neck. Denies focal weakness, changes in speech, changes in vision, or focal numbness. Denies shortness of breath, fever, increased cough or sputum production, fatigue, or weakness. The patient currently lives at home alone. Patient does not have any assistance/family that regularly checks on her. Initial VS at presentation: 97.4? F, HR 81, R 18, 161/73, and 94% on 2L NC. ED workup showed: WBC 13.0, no anemia, creatinine 0.56 and GFR >60, glucose 113, BNP 629, and UA suspicious for UTI. Viral PCR negative. CXR showed left basilar atelectasis versus pneumonia. Hip/femur XR did not show any acute fractures. Hip CT showed nondisplaced insufficiency fractures of right superior and inferior pubic rami. Review of Systems Review of Systems: All systems reviewed & are unremarkable except as noted in HPI and below [facility] Past Medical History Medical History Breast cancer COPD (chronic obstructive pulmonary disease) Stroke GERD (gastroesophageal reflux disease) Carotid stenosis Esophageal ring Social History Social History Smoking status: Current every day smoker Second hand tobacco smoke exposure: Yes Alcohol intake: never Substance use: never Substance use type: does not use Do You Feel Safe in your Home?: Yes Lack of Transportation: No Lack of Food: Never True Current Housing: I Have Housing Concerned About Future Housing: No Difficulty Paying Gas/Electric Bills: No Difficulty Paying for Meds: No Currently Unemployed: No Education: High School Diploma/GED Difficulty w/ Childcare or Family Care: No Spiritual care concerns: No Meds Home Medications and Allergies Home Medications ?Medication ?Instructions ?Recorded ?Confirmed ?Type multivitamin 1 tablet PO DAILY 07/17/23 04/23/24 History aspirin 81 mg tablet,delayed 81 mg PO QAM #60 tabs 07/26/23 04/23/24 Rx release letrozole 2.5 mg tablet (Femara) 2.5 mg PO QAM #60 tabs 07/26/23 04/23/24 Rx pantoprazole 40 mg tablet,delayed 40 mg PO QAM #60 tabs 07/26/23 04/23/24 Rx release albuterol sulfate 90 mcg/actuation 2 puff inhalation QID PRN 12/04/23 04/23/24 Rx aerosol inhaler shortness of breath or wheezing #8.5 grams Allergies Allergy/AdvReac Type Severity Reaction Status Date / Time No Known Allergies Allergy Verified 10/08/23 08:59 Vital Signs Vital Signs - 24 hr 04/23/24 05:19 04/23/24 07:15 04/23/24 07:48 Temperature 97.4 F L Pulse Rate 81 89 84 Respiratory Rate 18 17 16 Blood Pressure 161/73 H 183/78 H Pulse Oximetry 94 96 Oxygen Delivery Room Air Oxygen Flow Rate 04/23/24 07:55 04/23/24 10:40 04/23/24 10:42 Temperature Pulse Rate 82 89 Respiratory Rate 16 17 Blood Pressure 162/77 H Pulse Oximetry 97 100 Oxygen Delivery Nasal Cannula Oxygen Flow Rate 2 04/23/24 11:36 04/23/24 12:13 Temperature 96.6 F L Pulse Rate 80 86 Respiratory Rate 20 Blood Pressure 141/62 H 145/74 H Pulse Oximetry 97 97 Oxygen Delivery Oxygen Flow Rate Exam Narrative: exam is fine. hips are tender and upper neck pain. Const: General: comfortable and no acute distress Other: , female, elderly, frail HENMT: Face/Nose/Sinus: Normal nares present Mouth: Yes moist mucous membranes Eyes: General: appearance normal, both eyes and all related structures Sclera: sclerae normal Pupils: Equal, round and reactive pupils present EOM: EOMs intact bilaterally Neck: Other: Mild upper cervical tenderness without step-off. Resp: Effort & Inspection: normal respiratory effort Other: Crackles in the left lung base. No other adventitious lung sounds. Cardio: Rate: regular rate Rhythm: regular rhythm Other: S1-S2 present without murmur, rub, ectopy GI: Other: Abdomen soft, nondistended, nontender. Normoactive bowel sounds in all quadrants. Skin: General skin exam: normal color and no rashes or lesions noted Wounds: no wounds Neuro: Speech: normal speech Motor exam (neuro): 5/5 motor strength present throughout Sensory Exam: normal sensation Other: A&O x4 Extrem: General: normal to inspection Other: Mild tenderness to right hip. Psych: Mental Status: mental status grossly normal Affect: normal affect Other: Good insight and judgment, pleasant H&P: Results Labs Labs: Short CBC 04/23/24 Range/Units 09:00 WBC 13.0 H (4.5-10.0) K/mm3 Hgb 13.9 (12.0-15.0) g/dL Hct 42.8 (37.0-47.0) % Plt Count 207 (150-375) k/mm3 BMP 04/23/24 09:00 Sodium 139 Potassium 3.9 Chloride 102 Carbon Dioxide 30 BUN 11 D Creatinine 0.56 L Glucose 113 H Calcium 9.2 Liver Function 04/23/24 Range/Units 09:00 Total Bilirubin 1.0 (0.2-1.3) mg/dL AST 32 (14-36) U/L ALT 25 (6-35) U/L Alkaline Phosphatase 77 (38-126) U/L Albumin 4.2 (3.5-5.1) g/dL Urine 04/23/24 Range/Units 06:59 Urine Color Yellow (Yellow) Urine Appearance Cloudy H (Clear) Urine pH 8.0 (5.0-9.0) Ur Specific [place] 1.009 (1.001-1.035) Urine Protein Negative (Negative) mg/dL Urine Glucose (UA) Negative (Negative) mg/dL Assessment and Plan Assessment and plan (1) Closed fracture of pubic ramus: Qualifiers: Encounter type: initial encounter Laterality: right Qualified Code(s): S32.591A - Other specified fracture of right pubis, initial encounter for closed fracture Code(s): S32.599A - Other specified fracture of unspecified pubis, initial encounter for closed fracture Status: Acute Assessment and Plan: - Hip/Pelvic XR: unremarkable hip/pelvic imaging - Hip CT: nondisplaced insufficiency fractures of right superior and inferior p ubic rami. - ortho consulted, awaiting formal recs - PT/OT eval and treat - analgesics p.r.n. (2) UTI (urinary tract infection): Qualifiers: Urinary tract infection type: acute cystitis Hematuria presence: without hematuria Qualified Code(s): N30.00 - Acute cystitis without hematuria Code(s): N39.0 - Urinary tract infection, site not specified Status: Suspected Assessment and Plan: - UA: Cloudy, 2+ leuks, 6-10 RBC, 21-50 WBC, few epithelial cells, 1+ bacteria. 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 - started on Ceftriaxone on 04/23 Plan Mild upper cervical tenderness on exam. CT of the C-spine ordered. Diet: heart healthy GI Prophylaxis: not currently indicated DVT Prophylaxis: SCDs Lines: peripheral Code Status: full code Quality VTE Prophylaxis VTE prophylaxis: mechanical ordered Hospitalist [facility] Advance Care Plan I have confirmed that the patient's Advanced Care Plan is present, code status is documented, or surrogate decision maker is listed in patient medical record.: Yes Medication Reconciliation I have utilized all available resources to obtain, update and review the patients current medications (includes all prescriptions, OTC, herbals, cannabis, and nutritional supplements).: Yes
--- NOTE | 2024-04-23 17:24 | P.CONOP_ITS ---
Assessment and Plan Assessment and plan (1) Closed fracture of pubic ramus: Qualifiers: Encounter type: initial encounter Laterality: right Qualified Code(s): S32.591A - Other specified fracture of right pubis, initial encounter for closed fracture Code(s): S32.599A - Other specified fracture of unspecified pubis, initial encounter for closed fracture Status: Acute Plan Non displaced superior and inferior pubic rami fractures can be treated conservatively. Expect good result. Severe pain and functional limitation 2-4 weeks. May WBAT. Recommend acute rehab. May follow up in clinic in 4-6 weeks. History of Present Illness HPI Consult date: 04/23/24 Chief complaint: superior /inferior pubic ramus fx, pneumonia, hypo Narrative: Patient complains of acute right hip pain. Fell from standing height. Admitted through the emergency room for definitive management. No previous hip pain. Comfortable at rest. No neurologic symptoms. Complains of neck pain. Review of Systems 2 Review of Systems: Denies loss of consciousness. All systems reviewed & are unremarkable except as noted in HPI and below PMFSH Past Medical History Medical History Breast cancer COPD (chronic obstructive pulmonary disease) Stroke GERD (gastroesophageal reflux disease) Carotid stenosis Esophageal ring Social History Social History Smoking status: Current every day smoker Second hand tobacco smoke exposure: Yes Alcohol intake: never Substance use: never Substance use type: does not use Do You Feel Safe in your Home?: Yes Lack of Transportation: No Lack of Food: Never True Current Housing: I Have Housing Concerned About Future Housing: No Difficulty Paying Gas/Electric Bills: No Difficulty Paying for Meds: No Currently Unemployed: No Education: High School Diploma/GED Difficulty w/ Childcare or Family Care: No Spiritual care concerns: No Meds Home Medications and Allergies Home Medications ?Medication ?Instructions ?Recorded ?Confirmed ?Type multivitamin 1 tablet PO DAILY 07/17/23 04/23/24 History aspirin 81 mg tablet,delayed 81 mg PO QAM #60 tabs 07/26/23 04/23/24 Rx release letrozole 2.5 mg tablet (Femara) 2.5 mg PO QAM #60 tabs 07/26/23 04/23/24 Rx pantoprazole 40 mg tablet,delayed 40 mg PO QAM #60 tabs 07/26/23 04/23/24 Rx release albuterol sulfate 90 mcg/actuation 2 puff inhalation QID PRN 12/04/23 04/23/24 Rx aerosol inhaler shortness of breath or wheezing #8.5 grams Allergies Allergy/AdvReac Type Severity Reaction Status Date / Time No Known Allergies Allergy Verified 10/08/23 08:59 Vital Signs Vital Signs - 24 hr 04/23/24 05:19 04/23/24 07:15 04/23/24 07:48 Temperature 36.3 C L Pulse Rate 81 89 84 Respiratory Rate 18 17 16 Blood Pressure 161/73 H 183/78 H Pulse Oximetry 94 96 Oxygen Delivery Room Air Oxygen Flow Rate 04/23/24 07:55 04/23/24 10:40 04/23/24 10:42 Temperature Pulse Rate 82 89 Respiratory Rate 16 17 Blood Pressure 162/77 H Pulse Oximetry 97 100 Oxygen Delivery Nasal Cannula Oxygen Flow Rate 2 04/23/24 11:36 04/23/24 12:13 04/23/24 12:30 Temperature 35.9 C L Pulse Rate 80 86 Respiratory Rate 20 Blood Pressure 141/62 H 145/74 H Pulse Oximetry 97 97 93 Oxygen Delivery Nasal Cannula Oxygen Flow Rate 2 04/23/24 13:53 04/23/24 14:01 04/23/24 14:10 Temperature 36.1 C L Pulse Rate 77 80 81 Respiratory Rate 20 16 16 Blood Pressure 153/58 H Pulse Oximetry 93 Oxygen Delivery Oxygen Flow Rate Exam 2 Narrative: Tender at the right lateral sacrum. No lower extremity deformity. Const: General: no acute distress Eyes: General: appearance normal, both eyes and all related structures Resp: Effort & Inspection: normal respiratory effort Skin: General skin exam: no rashes or lesions noted Neuro: Speech: normal speech Other: Wiggles toes well. Capillary refill brisk. Distal light touch sensation intact. Dorsalis pedis pulse palpable. Extrem: Other: No edema. Psych: Mental Status: mental status grossly normal Results Labs 04/23/24 09:00 04/23/24 09:00 Labs: Abnormal lab results 04/23/24 04/23/24 Range/Units 06:59 09:00 WBC 13.0 H (4.5-10.0) K/mm3 RDW 14.7 H (11.5-14.5) % Immature Gran % (Auto) 0.7 H (0-0.5) % Neut % (Auto) 83.3 H (45.5-73.1) % Lymph % (Auto) 9.2 L (18.3-44.2) % [place] # (Auto) 0.8 H (0.1-0.6) K/mm3 Abs Immat Gran (auto) 0.09 H (0.00-0.031) K/mm3 Absolute Neuts (auto) 10.9 H (1.3-6.7) K/mm3 Creatinine 0.56 L (0.7-1.0) mg/dL Glucose 113 H (65-110) mg/dL NT-Pro-B Natriuret Pep 629 H (19.9-100) pg/mL Urine Appearance Cloudy H (Clear) Leukocyte Esterase Rfl 2+ H (Negative) JULIO/UL Urine RBC 6-10 H (0-2) /hpf Urine WBC 21-50 H (0-3) /hpf Urine Bacteria 1+ H /hpf H & H 04/23/24 Range/Units 09:00 Hgb 13.9 (12.0-15.0) g/dL Hct 42.8 (37.0-47.0) % All other labs normal. Quality VTE Prophylaxis VTE prophylaxis: mechanical ordered
[2024-04-23] MEDS: PROMETHAZINE HCL 25 MG/ML AMPUL 12.5 MG IV PUSH (18:22)
[2024-04-23] MEDS: ACETAMINOPHEN 325 MG TABLET 650 MG PO (18:22)
[2024-04-23] MEDS: SODIUM CHLORIDE 0.9% IV 1,000 ML 75 ML IV CONT (18:24)
--- NOTE | 2024-04-23 18:46 | P.CONONC_ITS ---
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 Imaging study showed adrenal gland involvement with metastatic disease. Patient started on anastrozole in July 2023 and lapatinib was added in December 2023. She has been tolerating treatment well with significant shrinkage of the right breast mass and normalization of the breast cancer tumor marker. She will continue anastrozole and lapatinib. I will check CA 15-3 today. She will follow-up as previously scheduled as an outpatient. HPI Data of Consult Date/Time: 04/23/24 18:46 Requesting Physician: Denise Louise MD Primary Care Provider: Reymundo Lee MD Consult Narrative Narrative: Valeria Deutsch is a 88 year old female with history of metastatic triple negative breast cancer diagnosed in July of 2023. Patient is currently on treatment with lapatinib and anastrozole. Lapatinib was started in December 31. Patient was last seen in the office in January 2024. She had good response with the treatment with shrinkage of the right breast mass and normalization of the tumor marker. Patient came into the hospital status post fall with right- sided hip pain. Hip x-ray did not show any acute fractures. Hip CT showed nondisplaced insufficiency fracture of the right superior and inferior pubic rami. She denies any other new complaints. Review of Systems 2 Review of Systems: All systems reviewed & are unremarkable except as noted in HPI and below (As per HPI otherwise negative) REPLACED BY [facility] Past Medical History Medical History Breast cancer COPD (chronic obstructive pulmonary disease) Stroke GERD (gastroesophageal reflux disease) Carotid stenosis Esophageal ring Social History Social History Smoking status: Current every day smoker Second hand tobacco smoke exposure: Yes Alcohol intake: never Substance use: never Substance use type: does not use Do You Feel Safe in your Home?: Yes Lack of Transportation: No Lack of Food: Never True Current Housing: I Have Housing Concerned About Future Housing: No Difficulty Paying Gas/Electric Bills: No Difficulty Paying for Meds: No Currently Unemployed: No Education: High School Diploma/GED Difficulty w/ Childcare or Family Care: No Spiritual care concerns: No Meds Home Medications and Allergies Home Medications ?Medication ?Instructions ?Recorded ?Confirmed ?Type multivitamin 1 tablet PO DAILY 07/17/23 04/23/24 History aspirin 81 mg tablet,delayed 81 mg PO QAM #60 tabs 07/26/23 04/23/24 Rx release letrozole 2.5 mg tablet (Femara) 2.5 mg PO QAM #60 tabs 07/26/23 04/23/24 Rx pantoprazole 40 mg tablet,delayed 40 mg PO QAM #60 tabs 07/26/23 04/23/24 Rx release albuterol sulfate 90 mcg/actuation 2 puff inhalation QID PRN 12/04/23 04/23/24 Rx aerosol inhaler shortness of breath or wheezing #8.5 grams Allergies Allergy/AdvReac Type Severity Reaction Status Date / Time No Known Allergies Allergy Verified 10/08/23 08:59 Vital Signs Vital Signs - 24 hr 04/23/24 05:19 04/23/24 07:15 04/23/24 07:48 Temperature 36.3 C L Pulse Rate 81 89 84 Respiratory Rate 18 17 16 Blood Pressure 161/73 H 183/78 H Pulse Oximetry 94 96 Oxygen Delivery Room Air Oxygen Flow Rate 04/23/24 07:55 04/23/24 10:40 04/23/24 10:42 Temperature Pulse Rate 82 89 Respiratory Rate 16 17 Blood Pressure 162/77 H Pulse Oximetry 97 100 Oxygen Delivery Nasal Cannula Oxygen Flow Rate 2 04/23/24 11:36 04/23/24 12:13 04/23/24 12:30 Temperature 35.9 C L Pulse Rate 80 86 Respiratory Rate 20 Blood Pressure 141/62 H 145/74 H Pulse Oximetry 97 97 93 Oxygen Delivery Nasal Cannula Oxygen Flow Rate 2 04/23/24 13:53 04/23/24 14:01 04/23/24 14:10 Temperature 36.1 C L Pulse Rate 77 80 81 Respiratory Rate 20 16 16 Blood Pressure 153/58 H Pulse Oximetry 93 Oxygen Delivery Oxygen Flow Rate Exam 2 Narrative: Lungs are clear to auscultation bilaterally Cardiovascular regular rate rhythm no murmurs Abdomen soft nontender nondistended bowel sounds are positive Extremities no edema Bilateral breast examination showed shrinkage of the right breast mass without any bilateral axillary lymphadenopathy Results Labs 04/23/24 09:00 04/23/24 09:00 Labs: Short CBC 04/23/24 Range/Units 09:00 WBC 13.0 H (4.5-10.0) K/mm3 Hgb 13.9 (12.0-15.0) g/dL Hct 42.8 (37.0-47.0) % Plt Count 207 (150-375) k/mm3 BMP 04/23/24 09:00 Sodium 139 Potassium 3.9 Chloride 102 Carbon Dioxide 30 BUN 11 D Creatinine 0.56 L Glucose 113 H Calcium 9.2 Liver Function 04/23/24 Range/Units 09:00 Total Bilirubin 1.0 (0.2-1.3) mg/dL AST 32 (14-36) U/L ALT 25 (6-35) U/L Alkaline Phosphatase 77 (38-126) U/L Albumin 4.2 (3.5-5.1) g/dL Urine 04/23/24 Range/Units 06:59 Urine Color Yellow (Yellow) Urine Appearance Cloudy H (Clear) Urine pH 8.0 (5.0-9.0) Ur Specific [place] 1.009 (1.001-1.035) Urine Protein Negative (Negative) mg/dL Urine Glucose (UA) Negative (Negative) mg/dL
[2024-04-23] MEDS: HYDROcodone/acetaminophen (*CRX) 5-325 MG TABLET 1 TAB PO (20:07)
[2024-04-24] VITALS (13 sets, daily range): BP systolic 136–145; BP diastolic 61–66; PULSE 82–94; RESP 16–24; TEMP 36.1–37.1; O2SAT 84–100; BMI 19.0
[2024-04-24] MEDS: IPRATROPIUM 0.5 MG/ALBUTEROL SULFATE 2.5 MG AMPUL.NEB 3 ML INHALATION ×4 (02:52→19:59)
[2024-04-24] MEDS: SODIUM CHLORIDE 0.9% IV 1,000 ML 75 ML IV CONT (09:29)
[2024-04-24] MEDS: ASPIRIN 81 MG ENTERIC TABLET PO (09:31)
[2024-04-24] MEDS: LETROZOLE (*CHEMO) 2.5 MG TABLET PO (09:31)
[2024-04-24] MEDS: PANTOPRAZOLE 40 MG TABLET PO (09:31)
[2024-04-24] MEDS: MULTIVITAMINS THERAPEUTIC TAB (*BKC) 1 TABLET PO (09:31)
[2024-04-24] MEDS: HYDROcodone/acetaminophen (*CRX) 5-325 MG TABLET 1 TAB PO ×3 (09:40→21:07)
--- NOTE | 2024-04-24 10:56 | P.PNIM_ITS ---
Progress Note: A&P Assessment and Plan (1) Closed fracture of pubic ramus: Qualifiers: Encounter type: initial encounter Laterality: right Qualified Code(s): S32.591A - Other specified fracture of right pubis, initial encounter for closed fracture Code(s): S32.599A - Other specified fracture of unspecified pubis, initial encounter for closed fracture Status: Acute Assessment and Plan: patient had fall at with severe pain prior to arrival to EMS * Hip CT: nondisplaced insufficiency fractures of right superior and inferior pubic rami. * ortho consulted, awaiting formal recs * PT/OT eval and treat * analgesics p.r.n. (2) Fall: Code(s): W19.XXXA - Unspecified fall, initial encounter Status: Acute Assessment and Plan: Patient fell backwards unsure what happened currently on a chemo medication for breast cancer states she has poor oral intake on unable to taste and has poor hydration. * Orthostatics pending * IV fluids * PT/OT (3) UTI (urinary tract infection): Qualifiers: Hematuria presence: without hematuria Urinary tract infection type: acute cystitis Qualified Code(s): N30.00 - Acute cystitis without hematuria Code(s): N39.0 - Urinary tract infection, site not specified Status: Suspected Assessment and Plan: * UA: Cloudy, 2+ leuks, 6-10 RBC, 21-50 WBC, few epithelial cells, 1+ bacteria. * UC pending * previous micro reviewed, has previously grown Aerococcus urinae on 07/17/2023, 08/30/2023, and 12/04/2023. 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 * started on Ceftriaxone on 04/2304/24/2024 * transitioned to PO Augmentin Plan Code status: Full code per patient DVT prophylaxis: SCD's Stress ulcer prophylaxis: NA PT/OT notes: PT/OT pending likely need acute Rehab Disposition: Patient continues admission after a fall at home with a superior and inferior pubic rami fracture was seen by Orthopedics no need for any interventions PT OT pending will likely need acute rehab at discharge continue with pain management. Time Spent With Patient Time with patient: 15 - 25 minutes Subjective Date/time seen: 04/24/24 10:56 Interval history: Patient is an 88-year-old female who was admitted after a fall at home with a pubic rami fracture 04/24/2024: Assumed Care Pain is moderate put was able to work with PT plan for rehab. Patient denied CP, N/V, no fevers or chills. Review of Systems Review of Systems: All systems reviewed & are unremarkable except as noted in HPI and below Exam Narrative: * GENERAL: Alert and oriented x 3. No acute distress. * EYES: EOMI. No scleral icterus. PERRLA. * HEENT: Moist mucous membranes. * LUNGS: Clear to auscultation bilaterally. No accessory muscle use. * CARDIOVASCULAR: Regular rate and rhythm. No murmur. No JVD. S1-S2 * ABDOMEN: Soft, non tenderness and non-distended. No palpable masses. * EXTREMITIES: Pelvic tenderness secondary to rami fracture * SKIN: No rashes or lesions. Skin warm, dry. * NEUROLOGIC: No focal neurological deficits. CN II-XII grossly intact * PSYCHIATRIC: Appropriate mood and affect. Good judgement and insight. Objective Data Vital Signs Vital Signs: Vital Signs - 24 hr 04/23/24 11:36 04/23/24 12:13 04/23/24 12:30 Temperature 96.6 F L Pulse Rate 80 86 Respiratory Rate 20 Blood Pressure 141/62 H 145/74 H Pulse Oximetry 97 97 93 Oxygen Delivery Nasal Cannula Oxygen Flow Rate 2 04/23/24 13:53 04/23/24 14:01 04/23/24 14:10 Temperature 96.9 F L Pulse Rate 77 80 81 Respiratory Rate 20 16 16 Blood Pressure 153/58 H Pulse Oximetry 93 Oxygen Delivery Oxygen Flow Rate 04/23/24 20:00 04/23/24 21:20 04/23/24 21:27 Temperature Pulse Rate 85 88 Respiratory Rate 16 16 Blood Pressure Pulse Oximetry 91 Oxygen Delivery Nasal Cannula Oxygen Flow Rate 2 04/23/24 21:39 04/23/24 21:40 04/23/24 21:55 Temperature 99.3 F Pulse Rate 93 Respiratory Rate 17 Blood Pressure 146/68 H Pulse Oximetry 86 L 93 91 Oxygen Delivery Room Air Nasal Cannula Oxygen Flow Rate 1 04/24/24 02:55 04/24/24 03:02 04/24/24 03:08 Temperature Pulse Rate 84 82 Respiratory Rate 16 16 Blood Pressure Pulse Oximetry 84 L Oxygen Delivery Room Air Oxygen Flow Rate 04/24/24 03:08 04/24/24 05:32 04/24/24 09:08 Temperature 97.4 F L Pulse Rate 84 Respiratory Rate 16 Blood Pressure 145/66 H Pulse Oximetry 96 94 94 Oxygen Delivery Nasal Cannula Nasal Cannula Oxygen Flow Rate 2 2 04/24/24 09:08 04/24/24 09:16 Temperature Pulse Rate 93 85 Respiratory Rate 16 16 Blood Pressure Pulse Oximetry Oxygen Delivery Oxygen Flow Rate Intake/Output Intake/Output: Intake & Output 04/21/24 04/22/24 04/23/24 04/24/24 23:59 23:59 23:59 23:59 Intake Total 1350 1120 Output Total 75 600 Balance 1275 520 Meds/Results Medications: Active Medications Generic Name Dose Route Start Last Admin Trade Name Freq PRN Reason Stop Dose Admin Acetaminophen 650 mg 04/23/24 10:15 04/23/24 18:22 Acetaminophen 325 Mg Tablet PO 650 mg Q4H PRN Administration Mild Pain (1-3) or Fever Hydrocodone Bitart/Acetaminophen 1 tab 04/23/24 10:15 04/24/24 09:40 Hydrocodone/Acetaminophen (*Crx) 5-325 Mg Tablet PO 1 tab Q4H PRN Administration Pain Rated 4-6 Albuterol 2 puff 04/23/24 12:37 Albuterol Sulfate (*Sp) Aerosol 1 Puff INHALATION QIDRT PRN shortness of breath or wheezing Albuterol/Ipratropium 3 ml 04/23/24 14:00 04/24/24 09:05 Ipratropium 0.5 Mg/Albuterol Sulfate 2.5 Mg Ampul.Neb 3 Ml INHALATION 3 ml Q6HRT GLEN Administration Amoxicillin/Clavulanate Potassium 1 tablet 04/24/24 21:00 Amoxicillin/Clavulanate K 875-125 Mg Tab PO Q12HR GLEN Aspirin 81 mg 04/24/24 09:00 04/24/24 09:31 Aspirin 81 Mg Enteric Tablet PO 81 mg QAM GLEN Administration Sodium Chloride 1,000 mls @ 75 mls/hr 04/23/24 16:15 04/24/24 09:29 Normal Saline Iv IV CONT 75 mls/hr .[id number] GLEN Administration Letrozole 2.5 mg 04/24/24 09:00 04/24/24 09:31 Letrozole (*Chemo) 2.5 Mg Tablet PO 2.5 mg QAM GLEN Administration Morphine Sulfate 2 mg 04/23/24 10:15 Morphine Sulfate (*Crx) 2 Mg/Ml Inj IV PUSH Q2H PRN Pain Rated 7-10 Multivitamins Therapeutic 1 tablet 04/24/24 09:00 04/24/24 09:31 Multivitamins Therapeutic Tab (*Bkc) PO 1 tablet DAILY GLEN Administration Pantoprazole Sodium 40 mg 04/24/24 09:00 04/24/24 09:31 Pantoprazole 40 Mg Tablet PO 40 mg QAM GLEN Administration Promethazine HCl 12.5 mg 04/23/24 10:15 04/23/24 18:22 Promethazine Hcl 25 Mg/Ml Ampul IV PUSH 12.5 mg Q6H PRN Administration Nausea Radiology Results: ITS Impressions Femur X-Ray 04/23/24 06:41 Impression: Unremarkable right femoral radiographs. Hip X-Ray 04/23/24 06:41 Impression: No significant abnormality is seen. Chest X-Ray 04/23/24 08:22 IMPRESSION: Left basilar atelectasis versus pneumonia. Hip CT 04/23/24 09:38 IMPRESSION: 1. Nondisplaced insufficiency fractures of right superior and inferior pubic rami. Cervical Spine CT 04/23/24 19:36 IMPRESSION: 1. No acute abnormality of the cervical spine. 2: Moderate-severe cervical spondylosis. Quality VTE Prophylaxis VTE prophylaxis: mechanical ordered -Patient's previous records reviewed on admission -ER notes reviewed in detail on admission -discussed all findings and current treatment plan with patient/Family/POA -Consultations reviewed for recommendations -Patient's disposition for safe discharge discussed with pillowcase cutter Dictation performed by [employer] direct speech recognition software, therefore pilot can router variants and typographical errors may occur. Hospitalist MIPS Advance Care Plan I have confirmed that the patient's Advanced Care Plan is present, code status is documented, or surrogate decision maker is listed in patient medical record.: Yes Medication Reconciliation I have utilized all available resources to obtain, update and review the patients current medications (includes all prescriptions, OTC, herbals, cannabis, and nutritional supplements).: Yes The patient is not eligible for med reconciliation; the patient is in a emergent medical situation where delaying treatment would jeopardize the patients health.: No
--- NOTE | 2024-04-24 11:55 | P.CDI_ITS ---
CDI Query Clarification Request BMI: 19.0 Nutritional Diagnostic Statement: Please refer to the comprehensive nutrition assessment for further information. If you agree with diagnosis of Moderate protein calorie malnutrition related to inadequate energy intake as evidenced by pt report of poor po intake for greater than 6 months, stated weight loss of -15% x 6 months, and NFPE findings for subcutaneous fat loss and muscle wasting. Please specify severity if known: * Mild * Moderate * Severe * Other/Unknown
--- NOTE | 2024-04-24 15:38 | PM.PNORT ---
Progress Note: A&P Assessment and Plan (1) Closed fracture of pubic ramus: Qualifiers: Encounter type: initial encounter Laterality: right Qualified Code(s): S32.591A - Other specified fracture of right pubis, initial encounter for closed fracture Code(s): S32.599A - Other specified fracture of unspecified pubis, initial encounter for closed fracture Status: Acute Plan Very pleasant 88 y/o female. No changes in care plan. Non displaced superior and inferior pubic rami fractures can be treated conservatively. Expect good result. Severe pain and functional limitation 2-4 weeks. Weight bearing as tolerated. Will benefit from acute rehab. May follow up in clinic in 4-6 weeks. She is on ASA and SCDs for DVT prophylaxis. Time Spent With Patient Time with patient: 15 - 25 minutes Subjective Subjective Date/Time Seen: 04/24/24 15:38 Interval history: Patient notes pain with movement. Minimal pain at rest. No other complaints. Review of Systems Review of Systems: All systems reviewed & are unremarkable except as noted in HPI and below Exam Narrative: Thin 88 y/o female. Alert and oriented. No acute distress. No lower extremity deformity. Pain at the pelvis. No calf or thigh tenderness. Wiggles toes. Distal neurovascularly intact. Const: General: no acute distress Eyes: General: appearance normal, both eyes and all related structures Resp: Effort & Inspection: normal respiratory effort Skin: General skin exam: no rashes or lesions noted Neuro: Speech: normal speech Other: Wiggles toes well. Capillary refill brisk. Distal light touch sensation intact. Dorsalis pedis pulse palpable. Extrem: Other: No edema. Psych: Mental Status: mental status grossly normal Objective Data Vital Signs Vital Signs: Vital Signs - 24 hr 04/23/24 20:00 04/23/24 21:20 04/23/24 21:27 Temperature Pulse Rate 85 88 Respiratory Rate 16 16 Blood Pressure Pulse Oximetry 91 Oxygen Delivery Nasal Cannula Oxygen Flow Rate 2 04/23/24 21:39 04/23/24 21:40 04/23/24 21:55 Temperature 99.3 F Pulse Rate 93 Respiratory Rate 17 Blood Pressure 146/68 H Pulse Oximetry 86 L 93 91 Oxygen Delivery Room Air Nasal Cannula Oxygen Flow Rate 1 04/24/24 02:55 04/24/24 03:02 04/24/24 03:08 Temperature Pulse Rate 84 82 Respiratory Rate 16 16 Blood Pressure Pulse Oximetry 84 L Oxygen Delivery Room Air Oxygen Flow Rate 04/24/24 03:08 04/24/24 05:32 04/24/24 08:00 Temperature 97.4 F L Pulse Rate 84 Respiratory Rate 16 Blood Pressure 145/66 H Pulse Oximetry 96 94 94 Oxygen Delivery Nasal Cannula Nasal Cannula Oxygen Flow Rate 2 2 04/24/24 09:08 04/24/24 09:08 04/24/24 09:16 Temperature Pulse Rate 93 85 Respiratory Rate 16 16 Blood Pressure Pulse Oximetry 94 Oxygen Delivery Nasal Cannula Oxygen Flow Rate 2 04/24/24 10:50 04/24/24 14:00 04/24/24 14:25 Temperature 97.0 F L Pulse Rate 85 92 Respiratory Rate 16 20 Blood Pressure 136/66 Pulse Oximetry 100 Oxygen Delivery Nasal Cannula Oxygen Flow Rate 2 04/24/24 14:32 Temperature Pulse Rate 94 Respiratory Rate 20 Blood Pressure Pulse Oximetry Oxygen Delivery Oxygen Flow Rate Intake/Output Intake/Output: Intake & Output 04/21/24 04/22/24 04/23/24 04/24/24 23:59 23:59 23:59 23:59 Intake Total 1350 1600 Output Total 75 600 Balance 1275 1000 Meds/Results Medications: Active Medications Generic Name Dose Route Start Last Admin Trade Name Freq PRN Reason Stop Dose Admin Acetaminophen 650 mg 04/23/24 10:15 04/23/24 18:22 Acetaminophen 325 Mg Tablet PO 650 mg Q4H PRN Administration Mild Pain (1-3) or Fever Hydrocodone Bitart/Acetaminophen 1 tab 04/23/24 10:15 04/24/24 15:15 Hydrocodone/Acetaminophen (*Crx) 5-325 Mg Tablet PO 1 tab Q4H PRN Administration Pain Rated 4-6 Albuterol 2 puff 04/23/24 12:37 Albuterol Sulfate (*Sp) Aerosol 1 Puff INHALATION QIDRT PRN shortness of breath or wheezing Albuterol/Ipratropium 3 ml 04/23/24 14:00 04/24/24 14:25 Ipratropium 0.5 Mg/Albuterol Sulfate 2.5 Mg Ampul.Neb 3 Ml INHALATION 3 ml Q6HRT GLEN Administration Amoxicillin/Clavulanate Potassium 1 tablet 04/24/24 21:00 Amoxicillin/Clavulanate K 875-125 Mg Tab PO Q12HR GLEN Aspirin 81 mg 04/24/24 09:00 04/24/24 09:31 Aspirin 81 Mg Enteric Tablet PO 81 mg QAM GLEN Administration Sodium Chloride 1,000 mls @ 75 mls/hr 04/23/24 16:15 04/24/24 09:29 Normal Saline Iv IV CONT 75 mls/hr .[id number] GLEN Administration Letrozole 2.5 mg 04/24/24 09:00 04/24/24 09:31 Letrozole (*Chemo) 2.5 Mg Tablet PO 2.5 mg QAM GLEN Administration Morphine Sulfate 2 mg 04/23/24 10:15 Morphine Sulfate (*Crx) 2 Mg/Ml Inj IV PUSH Q2H PRN Pain Rated 7-10 Multivitamins Therapeutic 1 tablet 04/24/24 09:00 04/24/24 09:31 Multivitamins Therapeutic Tab (*Bkc) PO 1 tablet DAILY GLEN Administration Pantoprazole Sodium 40 mg 04/24/24 09:00 04/24/24 09:31 Pantoprazole 40 Mg Tablet PO 40 mg QAM GLEN Administration Promethazine HCl 12.5 mg 04/23/24 10:15 04/23/24 18:22 Promethazine Hcl 25 Mg/Ml Ampul IV PUSH 12.5 mg Q6H PRN Administration Nausea Radiology Results: ITS Impressions Femur X-Ray 04/23/24 06:41 Impression: Unremarkable right femoral radiographs. Hip X-Ray 04/23/24 06:41 Impression: No significant abnormality is seen. Chest X-Ray 04/23/24 08:22 IMPRESSION: Left basilar atelectasis versus pneumonia. Hip CT 04/23/24 09:38 IMPRESSION: 1. Nondisplaced insufficiency fractures of right superior and inferior pubic rami. Cervical Spine CT 04/23/24 19:36 IMPRESSION: 1. No acute abnormality of the cervical spine. 2: Moderate-severe cervical spondylosis.
[2024-04-24] MEDS: AMOXICILLIN/CLAVULANATE K 875-125 MG TAB 1 TABLET PO (21:02)
[2024-04-25] VITALS (10 sets, daily range): BP systolic 98–157; BP diastolic 60–71; PULSE 84–113; RESP 20; TEMP 36.9–37.2; O2SAT 90–93
[2024-04-25] MEDS: IPRATROPIUM 0.5 MG/ALBUTEROL SULFATE 2.5 MG AMPUL.NEB 3 ML INHALATION ×3 (01:55→14:19)
[2024-04-25 07:19] LABS: CA 15-3 28 U/mL (<32)
[2024-04-25] MEDS: MULTIVITAMINS THERAPEUTIC TAB (*BKC) 1 TABLET PO (09:26)
[2024-04-25] MEDS: LETROZOLE (*CHEMO) 2.5 MG TABLET PO (09:26)
[2024-04-25] MEDS: PANTOPRAZOLE 40 MG TABLET PO (09:26)
[2024-04-25] MEDS: AMOXICILLIN/CLAVULANATE K 875-125 MG TAB 1 TABLET PO (09:26)
[2024-04-25] MEDS: ASPIRIN 81 MG ENTERIC TABLET PO (09:26)
[2024-04-25] MEDS: SODIUM CHLORIDE 0.9% IV 1,000 ML 75 ML IV CONT (10:28)
[2024-04-25] MEDS: HYDROcodone/acetaminophen (*CRX) 5-325 MG TABLET 1 TAB PO (12:54)
--- NOTE | 2024-04-25 13:50 | P.DS_ITS ---
DS: Admitting Diagnosis Discharge Date 04/25/2024 Admitting Diagnosis Fall/ Nondisplaced insufficiency fractures of right superior and inferior pubic rami. DS: Discharge Diagnosis Discharge Diagnosis (1) Closed fracture of pubic ramus: Qualifiers: Encounter type: initial encounter Laterality: right Qualified Code(s): S32.591A - Other specified fracture of right pubis, initial encounter for closed fracture Code(s): S32.599A - Other specified fracture of unspecified pubis, initial encounter for closed fracture Status: Acute Assessment and Plan: patient had fall at with severe pain prior to arrival to EMS * Hip CT: nondisplaced insufficiency fractures of right superior and inferior pubic rami. * ortho consulted, awaiting formal recs * PT/OT eval and treat * analgesics p.r.n. (2) Fall: Code(s): W19.XXXA - Unspecified fall, initial encounter Status: Acute Assessment and Plan: Patient fell backwards unsure what happened currently on a chemo medication for breast cancer states she has poor oral intake on unable to taste and has poor hydration. * Orthostatics pending * IV fluids * PT/OT (3) UTI (urinary tract infection): Qualifiers: Hematuria presence: without hematuria Urinary tract infection type: acute cystitis Qualified Code(s): N30.00 - Acute cystitis without hematuria Code(s): N39.0 - Urinary tract infection, site not specified Status: Suspected Assessment and Plan: * UA: Cloudy, 2+ leuks, 6-10 RBC, 21-50 WBC, few epithelial cells, 1+ bacteria. * UC pending * previous micro reviewed, has previously grown Aerococcus urinae on 07/17/2023, 08/30/2023, and 12/04/2023. 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 * started on Ceftriaxone on 04/2304/24/2024 * transitioned to PO Augmentin Plan Disposition: Discharge to [facility] DS: Summary Hospital Course Reason for hospitalization: Fall/ Nondisplaced insufficiency fractures of right superior and inferior pubic delores Hospital Course: Patient was a 88 y/o Female who had presented to the ED with complaints of fall with severe pain. PMH of breast cancer (currently on oral chemo, seen at [facility]), carotid stenosis, CVA (seen on MRI), and COPD. Who was found to have a Nondisplaced fractures of the superior and inferior pubic rami. Labs reviewed were unremarkable except for her urine that was suspicious of a UTI and mildly elevated WBC likely secondary to an inflammatory response or UTI. Patient denied any CP, SOB, N/V, ABD or urinary problems. She was then admitted to the medical unit for pain control and consult to orthopedics. Due to location of fracture no surgical intervention was indicated at this time. PT/OT was ordered for evaluation who recommended inpatient rehab. Patient UA did result back with ECOLI for which she had received x1 dose and was then transitioned to oral Augmentin. Patient acknowledged and agreed with discharge plan. She was seen and assessed the day of discharge in no acute distress but mild to moderate pain and was discharged to rehab. Status at Discharge Functional status at discharge: uses cane/walker Overall status at discharge: patient is progressing back to baseline Time Spent with Patient Time attestation: Total time spent providing and/or coordinating discharge services: Time spent: Greater than 30 minutes Exam Narrative: * GENERAL: Alert and oriented x 3. No acute distress. * EYES: EOMI. No scleral icterus. PERRLA. * HEENT: Moist mucous membranes. * LUNGS: Clear to auscultation bilaterally. No accessory muscle use. * CARDIOVASCULAR: Regular rate and rhythm. No murmur. No JVD. S1-S2 * ABDOMEN: Soft, non tenderness and non-distended. No palpable masses. * EXTREMITIES: Pelvic tenderness secondary to rami fracture * SKIN: No rashes or lesions. Skin warm, dry. * NEUROLOGIC: No focal neurological deficits. CN II-XII grossly intact * PSYCHIATRIC: Appropriate mood and affect. Good judgement and insight. DS: Data Data Completed and Pending Labs on day of discharge: Labs from last 24 hours 04/23/24 09:00 CA 15-3 Antigen 28 Preliminary micro results at discharge 04/23/24 06:59 Urine Culture - Preliminary Urine Clean Catch Escherichia Coli Discharge Plan Discharge Attending physician on discharge: Dudley Paris Consulting providers: Rayshawn Moreno Discharging Clinician: Mounika Doe Anticipated Discharge Date/Time: 04/25/24 13:35 Patient Disposition: [facility] Activity: as tolerated Diet: regular Discharge Instructions: Ortho instructions: Nondisplaced superior and inferior pelvic rami fracture * D/C to SNF/rehab * Follow up in office in 4-6 weeks with xray. Please call [facility] for appointment details. . * PT: Weight bearing as tolerated. Patient Instructions: Pelvic Fracture (DC) Patient Language: Thai Follow-up/Referrals: Reymundo Lee MD [Primary Care Provider] - Keep Reg. Scheduled Appt. Rayshawn Moreno MD [Physician] - Call for Appointment Discharge Medications: New hydrocodone-acetaminophen 5-325 mg Tablet 1 tablet PO Q4H PRN (Reason: Pain Rated 4-6) Qty: 20 0RF benzocaine-menthol 15-10 mg lozenge 1 monica PO .q6hr PRN (Reason: sore throat) Qty: 15 0RF acetaminophen 325 mg Tablet 650 mg PO Q4H PRN (Reason: Mild Pain (1-3) Or Fever) Qty: 1 0RF amoxicillin-pot clavulanate 875-125 mg tablet 1 tablet PO Q12H Qty: 8 0RF lidocaine HCl 4 % adhesive patch,medicated 1 patch topical DAILY PRN (Reason: pain) Qty: 30 0RF Rx Instructions: Place on lower back Continued multivitamin Tablet 1 tablet PO DAILY aspirin 81 mg Tablet,Delayed Release (Dr/Ec) 81 mg PO QAM Qty: 60 0RF letrozole [Femara] 2.5 mg Tablet 2.5 mg PO QAM Qty: 60 0RF pantoprazole 40 mg Tablet,Delayed Release (Dr/Ec) 40 mg PO QAM Qty: 60 0RF albuterol sulfate 90 mcg/actuation HFA aerosol inhaler 2 puff inhalation QID PRN (Reason: shortness of breath or wheezing) Qty: 8.5 0RF Date of admission: 04/24/24 10:55 Primary Care Provider: Reymundo Lee Admitting Provider: Denise Louise Attending physician on admission: Mounika Doe Condition: Stable Quality VTE Prophylaxis VTE prophylaxis: mechanical ordered Hospitalist MIPS Heart Failure (Exclusion) Patient has history of Heart Transplant or Left Ventricular Assistive Device?: No IF YES, STOP HERE Heart Failure (Qualifier) Patient has current or prior documentation of LVEF less than or equal to 40%, or mod/servere depressed LVSF?: No IF NO, STOP HERE
--- OUTSIDE RECORDS SUMMARY | 2024-04-30 19:33 | XMS_ITS | Encounter Summary ---
Author Organization [facility] Address [facility]6 [facility]. [place], [place] [id number] [place] [address] Care Team Providers Care Supervisor Nuclear Medicine Name Role Phone None, Provider Primary Care Provider Shruthia ble Encounter Details Date Type Department Care Team (Latest Contact Info) Description 07/22/2019 Travel Social History Tobacco Use Types Packs/Day Years Used Date Smoking Tobacco: Former Cigarettes 1 65 0 04/1954 - 04/2019 Smokeless Tobacco: Never Alcohol Use Standard Drinks/Week Comments Not Currently 0 (1 standard drink = 0.6 oz pur e alcohol) Comments No Sex and Gender Information Value Date Recorded Sex Assigned at Not on file Legal Sex Female 3:04 PM CDT Gender Identity Not on file Sexual Orientation Not on file COVID-19 Exposure Response Date Recorded In the last month, have you been in contact with someone who was confirmed or suspected to have Coronavirus / COVID-19? No / Unsure 07/22/2019 9:30 AM CDT documented as of this encounter Functional Status * RETIRED Are you deaf or do you have serious difficulty hearing Answer Date of Assessment Author Status No 05/19/2019 10:18 PM COSMETOLOGY EDUCATOR Acti ve * RETIRED Are you blind or do you have serious difficulty seeing, even when wearing glasses? Answer Date of Assessment Author Status No 05/19/2019 10:18 PM COSMETOLOGY EDUCATOR Acti ve * Do you have serious difficulty walking or climbing stairs? Answer Date of Assessment Author Status Yes 05/19/2019 10:18 PM Sujatha Sandoval, RN Active * Do you have difficulty dressing or bathing? Answer Date of Assessment Author Status Yes 05/19/2019 10:18 PM Sujatha Sandoval, RN Active * Because of a physical, mental, or emotional condition, do you have difficulty doing errands alone such as visiting a doctor's office or shopping? Answer Date of Assessment Author Status Yes 05/19/2019 10:18 PM Sujatha Sandoval RN Active documented as of this encounter Mental Status * Because of a physical, mental, or emotional condition, do you have serious difficulty concentrating, remembering, or making decisions? Answer Entry Date Author Status No 05/19/2019 10:18 PM Sujatha Sandoval RN Active documented in this encounter Plan of Treatment Not on file documented as of this encounter Visit Diagnoses Not on filedocumented in this encounter Care Teams Supervisor Nuclear Medicine Relationship Specialty Start Date End Date None, Provider, PCP - General 07/17/19 documented as of this encounter
--- OUTSIDE RECORDS SUMMARY | 2024-04-30 19:33 | XMS_ITS | Encounter Summary ---
Author Organization [facility] Address [facility]. [place], [place] [address] [place] [address] Care Team Providers Care Communications Controller Name Role Phone None, Provider Primary Care Provider Unavaila ble Reason for Visit * Reason Onset Date Comments Orders 02/25/2020 Encounter Details Date Type Department Care Team (Late st Contact Info) Description 02/25/2020 Telephone [facility] Medical Group Multispecialty Care - [facility] [address] [place] [address] Glenroy Davila MD [address] [place] [address] Orders Social History Tobacco Use Types Packs/Day Years [...] have Coronavirus / COVID-19? No / Unsure 02/24/2020 8:47 AM PATTERNMAKER SAMPLE documented as of this encounter Functional Status * RETIRED Are you deaf or do you have serious difficulty hearing Answer Date of Assessment Author Status No 05/19/2019 10:18 PM PATTERNMAKER SAMPLE Acti ve * RETIRED Are you blind or do you have serious difficulty seeing, even when wearing glasses? Answer Date of Assessment Author Status No 05/19/2019 10:18 PM PATTERNMAKER SAMPLE Acti ve * Do you have serious difficulty walking or climbing stairs? Answer Date of Assessment Author Status Yes 05/19/2019 10:18 PM Sujatha Sandoval, RN Active * Do you have difficulty dressing or bathing? Answer Date of Assessment Author Status Yes 05/19/2019 10:18 PM Sujatha Sandoval RN Active * Because of a physical, [...] Sandoval RN Active documented in this encounter Progress Notes * Delfina Diaz MA - 02/25/2020 9:59 AM CST Order placed to mammogram for pt. She does not have a PCP. Incidental breast mass found from hospital. ERNMAKER SAMPLE documented in this encounter Plan of Treatment Not on file documented as of this encounter Visit Diagnoses Diagnosis Breast mass- Primary Lump or mass in breast Encounter for screening mammogram for malignant neoplasm of breast Other screening mammogram documented in this encounter Care Teams Communications Controller Relationship Specialty Start Date End Date None, Provider, PCP - General 07/17/19 documented as of this encounter
--- OUTSIDE RECORDS SUMMARY | 2024-04-30 19:33 | XMS_ITS | Encounter Summary ---
Author Organization [facility] Address [facility]. [place], [place] [id number] [place] [id number] Care Team Providers Care Picking Table Worker Name Role Phone None, Provider MD Primary Care Provider Unavaila ble Reason for Visit * Reason Onset Date Comments Follow Up Call 04/07/2020 Encounter Details Date Type Department Care Team (Late st Contact Info) Description 04/07/2020 Telephone [facility] Medical Group Multispecialty Care - [facility] [address] [place] [address] Glenroy Davila MD [address] [place], [place] [id number] Follow Up Call Social History Tobacco Use Types Packs/Day Years [...] on file Sexual Orientation Not on file documented as of this encounter Functional Status * RETIRED Are you deaf or do you have serious difficulty hearing Answer Date of Assessment Author Status No 05/19/2019 10:18 PM COTTON BREEDER Acti ve * RETIRED Are you blind or do you have serious difficulty seeing, even when wearing glasses? Answer Date of Assessment Author Status No 05/19/2019 10:18 PM COTTON BREEDER Acti ve * Do you have serious difficulty walking or climbing stairs? Answer Date of Assessment Author Status Yes 05/19/2019 10:18 PM Sujatha Sandoval RN Active * Do you have difficulty [...] documented in this encounter Progress Notes * Elle Dey CRT - 04/07/2020 11:00 AM CST Called patient and patient stated that she cannot get the test done right now. She stated that she is waiting 3 great grandkids right now because their mother has COVID-19. Patient stated that she iswaiting until this all passes to get it scheduled ON BREEDER * Glenroy Davila MD - 04/07/2020 7:57 AM CST Please try to reach out to this patient again to get her mammogram scheduled for evaluation of the breast mass seen on her chest CT. Noted documentation that she keeps hanging up on schedulers. If that persists, please mail her a letter. Glenroy Davila MD ON BREEDER documented in this encounter Plan of Treatment Not on file documented as of this encounter Visit Diagnoses Not on filedocumented in this encounter Care Teams Picking Table Worker Relationship Specialty Start Date End Date None, Provider, PCP - General 07/17/19 documented as of this encounter
--- OUTSIDE RECORDS SUMMARY | 2024-04-30 19:33 | XMS_ITS | Encounter Summary ---
Author Organization [facility] Address [facility] [facility]. [place], [place] [address] [place] [address] Care Team Providers Care Wet Wheeler Name Role Phone None, Provider Primary Care Provider Unavaila ble Reason for Visit * Reason Onset Date Comments Xray/ultrasound Order 02/25/2020 Encounter Details Date Type Department Care Team (Late st Contact Info) Description 02/25/2020 Telephone [facility] Medical Group Multispecialty Care - [facility] [address] [place] [address] Glenroy Davila MD [address] [facility] [address] [place], [place] [id number] Xray/ultrasound Order Social History Tobacco Use Types Packs/Day Years [...] COVID-19? No / Unsure 02/24/2020 8:47 AM CHILDREN'S LUNCHROOM SUPERVISOR documented as of this encounter Functional Status * RETIRED Are you deaf or do you have serious difficulty hearing Answer Date of Assessment Author Status No 05/19/2019 10:18 PM CHILDREN'S LUNCHROOM SUPERVISOR Acti ve * RETIRED Are you blind or do you have serious difficulty seeing, even when wearing glasses? Answer Date of Assessment Author Status No 05/19/2019 10:18 PM CHILDREN'S LUNCHROOM SUPERVISOR Acti ve * Do you have serious difficulty walking or climbing stairs? Answer Date of Assessment Author Status Yes 05/19/2019 10:18 PM CHILDREN'S LUNCHROOM SUPERVISOR Sujatha Molina RN Active * Do you have difficulty dressing or bathing? Answer Date of Assessment Author Status Yes 05/19/2019 10:18 PM CHILDREN'S LUNCHROOM SUPERVISOR Sujatha Molina RN Active * Because of a physical, mental, or emotional condition, do you have difficulty doing errands alone such as visiting a doctor's office or shopping? Answer Date of Assessment Author Status Yes 05/19/2019 10:18 PM CHILDREN'S LUNCHROOM SUPERVISOR Sujatha Molina RN Active documented as of this encounter Mental Status * Because of a physical, mental, or emotional condition, do you have serious difficulty concentrating, remembering, or making decisions? Answer Entry Date Author Status No 05/19/2019 10:18 PM CHILDREN'S LUNCHROOM SUPERVISOR Sujatha Molina RN Active documented in this encounter Progress Notes * Kain Terry MA - 02/26/2020 3:32 PM CSTAddended by: KAIN TERRY on: 02/26/2020 03:32 PM Modules accepted: Orders DREN'S LUNCHROOM SUPERVISOR * Kain Terry MA - 02/26/2020 3:32 PM CST Orders fixed DREN'S LUNCHROOM SUPERVISOR * Madhu Orozco - 02/26/2020 8:57 AM CST [facility] from [facility] outpatient scheduler called in and stated the order is still not correct. Please fu @ ext [phone] DREN'S LUNCHROOM SUPERVISOR * Delfina Diaz MA - 02/25/2020 12:47 PM CST Order placed, not sure It was done right? DREN'S LUNCHROOM SUPERVISOR * Delfina Diaz MA - 02/25/2020 12:47 PM CSTAddended by: DELFINA DIAZ on: 02/25/2020 12:47 PM Modules accepted: Orders DREN'S LUNCHROOM SUPERVISOR * Eloisa Navarrete - 02/25/2020 12:18 PM CST Radha [facility] called in stating that the ultrasound orders sent in for the pt need reva changed. The orders need to be more specific. The current diagnostic code will need to be removed and changed to a specific area of where the breast mass is (left or right side) and with in the orders what side the mass is and where the mass is for the ultra sound. Please change orders in epic. Any questions call Radha @ ext [phone] DREN'S LUNCHROOM SUPERVISOR documented in this encounter Plan of Treatment Scheduled Orders Name Type Priority Associated Diagnoses Orde r Schedule MG DIAG W ANDI BILAT DIGI MAMMO AGUS Encounter for observation for other suspected diseases and conditions ruled out Breast mass Ordered: 02/26/2020 documented as of this encounter Visit Diagnoses Diagnosis Breast mass- Primary Lump or mass in breast Breast mass, right Lump or mass in breast Encounter for screening mammogram for malignant neoplasm of breast Other screening mammogram Encounter for observation for other suspected diseases and conditions ruled out Personal history of malignant neoplasm of breast Personal history of malignant neoplasm of breast documented in this encounter Care Teams Wet Wheeler Relationship Specialty Start Date End Date None, Provider, PCP - General 07/17/19 documented as of this encounter
--- OUTSIDE RECORDS SUMMARY | 2024-04-30 19:33 | XMS_ITS | Encounter Summary ---
Author Organization [facility] Address [facility]. [place], [place] [id number] [place] [address] Care Team Providers Care Producer Name Role Phone None, Provider MD Primary Care Provider Unavaila ble Reason for Visit * Reason Onset Date Comments Orders 07/22/2019 Encounter Details Date Type Department Care Team (Late st Contact Info) Description 07/22/2019 Telephone [facility] Multispecialty Care - [address], [address] [place] [id number] Linda Santos, JUNIOR PROGRAMMER ANALYST Orders Social History Tobacco Use Types Packs/Day [...] Assessment Author Status No 05/19/2019 10:18 PM SUIT MAKER Acti ve * RETIRED Are you blind or do you have serious difficulty seeing, even when wearing glasses? Answer Date of Assessment Author Status No 05/19/2019 10:18 PM SUIT MAKER Acti ve * Do you have serious difficulty walking or climbing stairs? Answer Date of Assessment Author Status Yes 05/19/2019 10:18 PM Sujatha Sandoval, СВЕТЛАНА Active * Do you have difficulty dressing [...] Progress Notes * Elle Dey CRT - 07/23/2019 9:05 AM CDT Called and got the patient scheduled for 08/17 for a nurse visit for the 6MWT. Mentioned in the appointment note that no charge/copay for the patient for this. Patient is aware that we might have to reschedule if the COVID-19 progresses. Reminder is set for 08/14 to see if we can still have the patient come in on 08/17 for the 6MWT. * Elle Dey CRT - 07/22/2019 3:00 PM CDT Called patient and was not able to leave message on voicemail. If patient calls back, please schedule the patient for a 4 week nurse visit for a 6MWT (No Charge or Copay) * Linda Santos APRN - 07/22/2019 2:56 PM CDT Please schedule in 4 weeks and we will reassess closer to the appointment date. ROMINA Hernandez * Elle Dey CRT - 07/22/2019 1:42 PM CDT Routed task to Linda to see if it is okay to wait for now to schedule the patient for the 6MWT due to the COVID-19 * Elle Dey CRT - 07/22/2019 11:45 AM CDT Per Ana: - you can make the appointment for 4 weeks but when the time comes we will have to reassess the situation due to the COVID-19 outbreak. * Elle Dey CRT - 07/22/2019 10:40 AM CDT ----- Message from Linda Santos APRN sent at 07/22/2019 10:36 AM CDT ----- Regarding: call patient, 6MW Can you call patient and get her scheduled for a nurse clinic visit for a 6 minute walk only in 4 weeks please? I'll put the order in. Thank you! documented in this encounter Plan of Treatment Not on file documented as of this encounter Visit Diagnoses Not on filedocumented in this encounter Care Teams Producer Relationship Specialty Start Date End Date None, Provider, PCP - General 07/17/19 documented as of this encounter
--- OUTSIDE RECORDS SUMMARY | 2024-04-30 19:33 | XMS_ITS | Encounter Summary ---
Author Organization [facility] Address [facility] [place] [address] [place] [address] Care Team Providers Care Favor Maker Name Role Phone None, Provider MD Primary Care Provider Unavaila ble Reason for Visit * Reason Onset Date Comments Hospital Discharge 05/19/2019 Pt was admitt ed at [facility] from 05/12/2019 - 05/16/2019 and only has Medicare A (hospital). Knows it will be self pay $88.00 when we schedule Encounter Details Date Type Department Care Team (Late st Contact Info) Description 05/19/2019 Telephone [facility] Pulmonology Specialty Clinic - [address] [phone] Evan Benitez MD [address] [place] [address] Hospital Discharge (Pt was admitted at [facility] from 05/12/2019 - 05/16/2019 and only has Medicare A (hospital). Knows it will be self pay $88.00 when we schedule) Social History Tobacco Use Types Packs/Day Years Used Date Smoking Tobacco: Former Cigarettes 1 65 Smokeless Tobacco: Never Alcohol Use Standard Drinks/Week Comments Not Currently 0 (1 standard drink = 0.6 oz pur e alcohol) Comments No Sex and Gender Information Value Date Recorded Sex Assigned at Not on file Legal Sex Female 3:04 PM CDT Gender Identity Not on file Sexual Orientation Not on file documented as of this encounter Functional Status * Question Answer Date of Assessment Author Status Do you have serious difficulty walking or climbing stairs? Yes 05/19/2019 10:18 PM Jas Sandoval RN Active * Question Answer Date of Assessment Author Status Do you have difficulty dressing or bathing? Yes 05/19/2019 10:18 PM Jessica Sandoval RN Active Because of a physical, mental, or emotional condition, do you have difficulty doing errands alone such as visiting a doctor's office or shopping? Yes 05/19/2019 10:18 PM Jas Sandoval RN Active * RETIRED Are you deaf or do you have serious difficulty hearing Answer Date of Assessment Author Status No 05/12/2019 3:06 PM BARTENDER SERVER 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 Answer Date of Assessment Author Status No 05/12/2019 3:06 PM BARTENDER SERVER Activ e * Do you have serious difficulty walking or climbing stairs? Answer Date of Assessment Author Status No 05/12/2019 3:06 PM Ally Zacarias RN Active * Do you have difficulty dressing or bathing? Answer Date of Assessment Author Status No 05/12/2019 3:06 PM Ally Zacarias RN Active * Because of a physical, mental, or emotional condition, do you have difficulty doing errands alone such as visiting a doctor's office or shopping? Answer Date of Assessment Author Status No 05/12/2019 3:06 PM Ally Zacarias RN Active documented as of this encounter Mental Status * Question Answer Entry Date Author Status Because of a physical, mental, or emotional condition, do you have serious difficulty concentrating, remembering, or making decisions? No 05/19/2019 10:18 PM Gisela Sandoval RN Active * Because of a physical, mental, or emotional condition, do you have serious difficulty concentrating, remembering, or making decisions? Answer Entry Date Author Status No 05/12/2019 3:06 PM Ally Zacarias RN Active documented in this encounter Progress Notes * Yen Espinosa, SLIP COVER OPERATOR - 05/22/2019 11:15 AM CST Called Fabián and scheduled patient with Linda Santos next week. Fabián was informed of kwadwo Lockwood agreed to have patient see ETL APPLICATION DEVELOPER ENDER SERVER * Elle Dey CRT - 05/21/2019 8:30 AM CST Called patient and the phone continuously rang with no answer. ENDER SERVER ENDER SERVER * Elle Dey CRT - 05/20/2019 11:26 AM CST Called patients son Fabián, and LMOM for him to call back. - if Fabián calls back, please schedule patient with LM for a f/u visit. - please let Fabián know about the copay as well. ENDER SERVER * Linda Santos APRN - 05/20/2019 11:20 AM CST That's fine for her to be on my schedule. ENDER SERVER * Yen Espinosa CRT - 05/20/2019 10:20 AM CST Could we schedule patient with you as you seen patient in the hospital? ENDER SERVER * Shannon Delaney - 05/19/2019 12:48 PM CST Pt's son, Fabián, called saying that Dr. Benitez from [facility] told him that the pt needs to see him in 2 weeks. He asked to please call them to schedule an appointment. FYI: Pt only has Medicare part A (hospital only) so the pt will have to pay an $88.00 co-pay. The pt will have to be notified of this when we schedule. ENDER SERVER documented in this encounter Plan of Treatment Not on file documented as of this encounter Visit Diagnoses Not on filedocumented in this encounter Care Teams Favor Maker Relationship Specialty Start Date End Date None, Provider, PCP - General 05/12/19 07/16/19 documented as of this encounter
--- OUTSIDE RECORDS SUMMARY | 2024-04-30 19:33 | XMS_ITS | Encounter Summary ---
Author Organization [facility] Address [facility]. [place], [place] [id number] [place] [address] Care Team Providers Care Bar Staff Name Role Phone None, Provider Primary Care Provider Shruthia ble Encounter Details Date Type Department Care Team (Latest Contact Info) Description 02/24/2020 Travel Social History Tobacco Use Types Packs/Day [...] COVID-19? No / Unsure 02/24/2020 8:47 AM OLIVE PACKER documented as of this encounter Functional Status * RETIRED Are you deaf or do you have serious difficulty hearing Answer Date of Assessment Author Status No 05/19/2019 10:18 PM OLIVE PACKER Acti ve * RETIRED Are you blind or do you have serious difficulty seeing, even when wearing glasses? Answer Date of Assessment Author Status No 05/19/2019 10:18 PM OLIVE PACKER Acti ve * Do you have serious difficulty walking or climbing stairs? Answer Date of Assessment Author Status Yes 05/19/2019 10:18 PM OLIVE PACKER Sujatha Molina, СВЕТЛАНА Active * Do you have difficulty dressing or bathing? Answer Date of Assessment Author Status Yes 05/19/2019 10:18 PM OLIVE PACKER Sujatha Molina, RN Active * Because of a physical, [...] on filedocumented in this encounter Care Teams Bar Staff Relationship Specialty Start Date End Date None, Provider, PCP - General 07/17/19 documented as of this encounter
--- OUTSIDE RECORDS SUMMARY | 2024-04-30 19:33 | XMS_ITS | Encounter Summary ---
Author Organization [facility] Address [facility]6 [facility]. [place], [place] [address] [place] [address] Care Team Providers Care Yard Cleaner Name Role Phone None, Provider Primary Care Provider Unavaila ble Encounter Details Date Type Department Care Team (Latest Contact Info) Description 05/27/2019 Scan [facility] Scanned, Documents Social History Tobacco Use Types Packs/Day Years [...] Assessment Author Status No 05/19/2019 10:18 PM MACHINE TECHNICIAN Acti ve * RETIRED Are you blind or do you have serious difficulty seeing, even when wearing glasses? Answer Date of Assessment Author Status No 05/19/2019 10:18 PM MACHINE TECHNICIAN Acti ve * Do you have serious [...] on filedocumented in this encounter Care Teams Yard Cleaner Relationship Specialty Start Date End Date None, Provider, PCP - General 05/12/19 07/16/19 documented as of this encounter
--- OUTSIDE RECORDS SUMMARY | 2024-04-30 19:33 | XMS_ITS | Encounter Summary ---
Author Organization [facility] Address [facility]6 [facility]. [place], [place] [address] [place] [address] Care Team Providers Care Ux Developer Name Role Phone None, Provider MD Primary Care Provider Unavaila ble Reason for Visit * Reason Onset Date Comments Question 05/28/2019 Encounter Details Date Type Department Care Team (Late st Contact Info) Description 05/28/2019 Telephone [facility] Medical Group Multispecialty Care - [facility] [address] [facility], [address] [place] [id number] Linda Santos, RECYCLING MANAGER Question Social History Tobacco Use Types Packs/Day Years [...] Assessment Author Status No 05/19/2019 10:18 PM MINING ENGINEERING TECHNOLOGIST Acti ve * RETIRED Are you blind or do you have serious difficulty seeing, even when wearing glasses? Answer Date of Assessment Author Status No 05/19/2019 10:18 PM MINING ENGINEERING TECHNOLOGIST Acti ve * Do you have serious difficulty walking or climbing stairs? Answer Date of Assessment Author Status Yes 05/19/2019 10:18 PM MINING ENGINEERING TECHNOLOGIST Sujatha Molina RN Active * Do you have difficulty dressing or bathing? Answer Date of Assessment Author Status Yes 05/19/2019 10:18 PM MINING ENGINEERING TECHNOLOGIST Sujatha Molina, СВЕТЛАНА Active * Because of a physical, mental, or emotional condition, do you have difficulty doing errands alone such as visiting a doctor's office or shopping? Answer Date of Assessment Author Status Yes 05/19/2019 10:18 PM MINING ENGINEERING TECHNOLOGIST Sujatha Molina, RN Active documented as of this encounter Mental Status * Because of a physical, mental, or emotional condition, do you have serious difficulty concentrating, remembering, or making decisions? Answer Entry Date Author Status No 05/19/2019 10:18 PM MINING ENGINEERING TECHNOLOGIST Sujatha Molina, СВЕТЛАНА Active documented in this encounter Progress Notes * Elle Dey CRT - 05/28/2019 11:15 AM CST Order resent to [facility]. NG ENGINEERING TECHNOLOGIST * Gisselle Green - 05/28/2019 10:29 AM CST [facility] calling stating they need you to check the box that says [id number] on the orders you sentfor the nebulizer kit and fax them back [facility] as the pt is coming to picking crew supervisor her kit today. NG ENGINEERING TECHNOLOGIST documented in this encounter Plan of Treatment Not on file documented as of this encounter Visit Diagnoses Not on filedocumented in this encounter Care Teams Ux Developer Relationship Specialty Start Date End Date None, Provider, PCP - General 05/12/19 07/16/19 documented as of this encounter
--- OUTSIDE RECORDS SUMMARY | 2024-04-30 19:33 | XMS_ITS | Encounter Summary ---
Author Organization [facility] Address [facility]6 [facility]. [place], [place] [address] [place] [address] Care Team Providers Care Chief Drafter Name Role Phone None, Provider MD Primary Care Provider Unavaila ble Reason for Visit * Reason Comments PFT (SCAN) Encounter Details Date Type Department Care Team (Latest Contact Info) Description 05/27/2019 Scan [facility] Scanned, Documents PFT (SCAN) Social History Tobacco Use Types Packs/Day Years [...] Assessment Author Status No 05/19/2019 10:18 PM CRUISE COUNSELOR Acti ve * RETIRED Are you blind or do you have serious difficulty seeing, even when wearing glasses? Answer Date of Assessment Author Status No 05/19/2019 10:18 PM CRUISE COUNSELOR Acti ve * Do you have serious [...] on file documented as of this encounter Procedures Procedure Name Priority Date/Time Associated Diagnosis Comments OUTSIDE LAB (SCAN ORDER) Routine 05/27/2019 documented in this encounter Results * OUTSIDE LAB (05/27/2019) 05/27/2019 us Documents Scanned SCANNING Edited Result - Final [facility] documented in this encounter Visit Diagnoses Not on filedocumented in this encounter Care Teams Chief Drafter Relationship Specialty Start Date End Date None, Provider, PCP - General 05/12/19 07/16/19 documented as of this encounter
--- OUTSIDE RECORDS SUMMARY | 2024-04-30 19:33 | XMS_ITS | Encounter Summary ---
Author Organization [facility] Address [address] [facility]. [place], [place] [address] [place] [address] Care Team Providers Care Skull Splitter Name Role Phone Unavailable Primary Care Provider Unavailabl e Reason for Visit * Reason Onset Date Comments Consult 09/27/2015 Encounter Details Date Type Department Care Team (Late st Contact Info) Description 09/27/2015 Telephone [facility] AT [address] [phone] Silver Beltre MD [address] [phone] Consult Social History Tobacco Use Types Packs/Day Years Used Date Smoking Tobacco: Never Assessed Comments Unknown Sex and Gender Information Value Date Recorded Sex Assigned at Not on file Legal Sex Female 3:04 PM CDT Gender Identity Not on file Sexual Orientation Not on file documented as of this encounter Progress Notes * Monse Yoon - 09/27/2015 1:34 PM CDT Phoned patient to schedule consult ordered by Dr. Shepard, no answer, no voicemail. Letter sent. documented in this encounter Plan of Treatment Not on file documented as of this encounter Visit Diagnoses Not on filedocumented in this encounter
--- OUTSIDE RECORDS SUMMARY | 2024-04-30 19:33 | XMS_ITS | Encounter Summary ---
Author Organization [facility] Address [facility]. [place], [place] [id number] [place] [id number] Care Team Providers Care Over The Road Driver Name Role Phone None, Provider MD Primary Care Provider Unavaila ble Reason for Referral * Surgical (Urgent) - Closed Specialty Diagnoses / Procedures Referred By Kady jenkins Referred To Contact GENERAL SURGERY Diagnoses Breast mass Glenroy Davila MD [facility] [address] [place] [id number] Phone: tel: fax: Zaire Trejo MD Phone: tel: fax: Referral ID Status Reason Start Date Expiration Date Visits Re quested Visits Authorized [id number] Closed 02/24/2020 03/26/2021 100 100 Scheduling Instructions Urgent for breast mass CTOR PATIENT FINANCIAL SERVICES Reason for Visit * Reason Comments Shortness Of Breath states she does not use O2 Encounter Details Date Type Department Care Team (Latest Contact Info) Description 02/24/2020 9:00 AM DIRECTOR PATIENT FINANCIAL SERVICES Office Visit [facility] Multispecialty [facility] - [facility] [address] [facility] [facility] [place] [address] Linda Santos, Glenroy Patiño MD [facility] [address] [place] [address] Shortness Of Breath (states she does not use O2) Social History Tobacco Use Types Packs/Day Years [...] COVID-19? No / Unsure 02/24/2020 8:47 AM DIRECTOR PATIENT FINANCIAL SERVICES documented as of this encounter Last Filed Vital Signs Vital Sign Reading Time Taken Comments Blood Pressure 136/68 02/24/2020 8:58 AM DIRECTOR PATIENT FINANCIAL SERVICES Pulse 98 02/24/2020 8:58 AM DIRECTOR PATIENT FINANCIAL SERVICES Temperature 36.3 ??C (97.4 ??F) 02/24/2020 8:58 AM CS T Respiratory Rate 16 02/24/2020 8:58 AM DIRECTOR PATIENT FINANCIAL SERVICES Oxygen Saturation 92% 02/24/2020 8:58 AM DIRECTOR PATIENT FINANCIAL SERVICES Inhaled Oxygen Concentration - - Weight 54.9 kg (121 lb) 02/24/2020 8:58 AM DIRECTOR PATIENT FINANCIAL SERVICES Height 165.1 cm (5' 5 ) 02/24/2020 8:58 AM DIRECTOR PATIENT FINANCIAL SERVICES Body Mass Index 20.14 02/24/2020 8:58 AM DIRECTOR PATIENT FINANCIAL SERVICES documented in this encounter Functional Status * RETIRED Are you deaf or do you have serious difficulty hearing Answer Date of Assessment Author Status No 05/19/2019 10:18 PM DIRECTOR PATIENT FINANCIAL SERVICES Acti ve * RETIRED Are you blind or do you have serious difficulty seeing, even when wearing glasses? Answer Date of Assessment Author Status No 05/19/2019 10:18 PM DIRECTOR PATIENT FINANCIAL SERVICES Acti ve * Do you have serious difficulty walking or climbing stairs? Answer Date of Assessment Author Status Yes 05/19/2019 10:18 PM DIRECTOR PATIENT FINANCIAL SERVICES Sujatha Molina RN Active * Do you have difficulty dressing or bathing? Answer Date of Assessment Author Status Yes 05/19/2019 10:18 PM DIRECTOR PATIENT FINANCIAL SERVICES Sujatha Molina RN Active * Because of a physical, mental, or emotional condition, do you have difficulty doing errands alone such as visiting a doctor's office or shopping? Answer Date of Assessment Author Status Yes 05/19/2019 10:18 PM DIRECTOR PATIENT FINANCIAL SERVICES Sujatha Molina RN Active documented as of this encounter Mental Status * Because of a physical, mental, or emotional condition, do you have serious difficulty concentrating, remembering, or making decisions? Answer Entry Date Author Status No 05/19/2019 10:18 PM Sujatha Sandoval RN Active documented in this encounter Progress Notes * Glenroy Davila MD - 02/24/2020 9:00 AM CST [facility] MEDIC[facility] History Chief Complaint Patient presents with ??? Shortness Of Breath states she does not use O2 Referring provider: Provider None, MD MoranLuningzuly Deutsch is a 84-year-old female with a past medical history of tobacco use, COPD, pepticulcer disease, Sandra-Banegas tear, tuberculosis status post treatment, hypoxia who comes in today for follow-up. Since her last visit she says that she has been doing fine. She ran out of her Symbicort about 5 days ago and says that her shortness of breath has been worse. She is been having to use her nebulizer more often which has been helping. Her breathing does feel better when she is on Symbicort, todayshe was breathless just walking down the hallway to get into the exam room. She does endorse some cough that occasionally brings up some thick clear mucus. Never any hemoptysis. She has not had any emergency room visits since May when she was seen for COPD exacerbation. CTA of the chest at that time did show bronchiectasis, emphysema, lower lobe infiltrates, and an incidental right breast mass. She says that she was not aware of the right breast mass. It has not been evaluated. Occasionally she still does smoke 1 or 2 cigarettes when she says that she is stressed. Prior to that smoked 1 pack a day for about 65 years. Previously did have oxygen at home, but is not using any oxygen at this time. Past Medical History: Diagnosis Date ??? COPD (chronic obstructive pulmonary disease) (CMS/HCC) ??? Fall ??? Gastroesophageal reflux disease without esophagitis 05/14/2019 Hx of GI bleed ??? Hypertension ??? Vaginal delivery x 3 Past Surgical History: Procedure Laterality Date ??? NONE Social History Tobacco Use ??? Smoking status: Former Smoker Packs/day: 1.00 Years: 65.00 Pack years: 65.00 Types: Cigarettes Quit date: 04/2019 Years since quittin.8 ??? Smokeless tobacco: Never Used Substance Use Topics ??? Alcohol use: Not Currently ??? Drug use: Never Family History Problem Relation Name Age of Onset ??? Cancer Mother Current Outpatient Medications Medication Sig Dispense Refill ??? aspirin EC (ASPIRIN EC) 81 MG tablet Take 81 mg by mouth daily. ??? Pcqocvtrafo-Mhdhnxldv-Rzangw (TRELEGY) 100-62.5-25 MCG/INH AEROSOL POWDER, BREATH ACTIVATED Inhale 1 puff into the lungs daily. 3 each 3 ??? ipratropium-albuterol 0.5-2.5 (3) MG/3ML Solution Take 3 mLs by nebulization 4 (four) times a day. 360 mL 11 ??? albuterol sulfate HFA 108 (90 Base) MCG/ACT inhaler Inhale 2 puffs into the lungs 4 (four) times daily. 1 Inhaler 0 ??? Respiratory Therapy Supplies (FLUTTER) Device 1 each by Does not apply route 2 (two) times daily. 1 Device 0 ??? Respiratory Therapy Supplies (NEBULIZER COMPRESSOR) Kit For use with nebulized medications 1 kit 1 ??? Respiratory Therapy Supplies (NEBULIZER/ADULT MASK) Kit For use with nebulizer 1 kit 99 No current facility-administered medications for this visit. No Known Allergies Review of Systems Constitutional: Negative for chills, fever and weight loss. HENT: Negative for ear pain, hearing loss and nosebleeds. Eyes: Negative for blurred vision, double vision and redness. Respiratory: Positive for cough, sputum production and shortness of breath. Negative for hemoptysisand wheezing. Cardiovascular: Negative for chest pain, palpitations, orthopnea, leg swelling and PND. Gastrointestinal: Negative for heartburn, nausea and vomiting. Genitourinary: Negative for dysuria, frequency and urgency. Musculoskeletal: Negative for myalgias. Skin: Negative for rash. Neurological: Negative for dizziness, tingling and headaches. Endo/Heme/Allergies: Does not bruise/bleed easily. Psychiatric/Behavioral: Negative for depression and suicidal ideas. Physical Exam Filed Vitals: 02/24/20 0858 BP: 136/68 Pulse: 98 Resp: 16 Temp: 97.4 ??F (36.3 ??C) TempSrc: Temporal SpO2: 92% Weight: 54.9 kg (121 lb) Height: 5' 5 (1.651 m) Body mass index is 20.14 kg/m??. Physical Exam: General: Alert, pleasant, in NAD Neuro: Alert, appropriate Psych: Affect normal Head: NC, AT EENT: No Sinus tenderness to palpation, mallampati 2 Neck: Supple Lymph: No appreciable cervical lymphadenopathy Respiratory: Bilateral scattered crackles and wheezes, slightly worse on the right Cardiovascular: s1,s2, rrr, no audible murmur GI: non-distended, bs+ Musc: Bilateral wrist ROM wnl Ext: no edema, no clubbing Skin: No visible rashes PFTs: 05/27/2019 simple spirometry FEV1 1.24 L, 64%. FVC 2.16 L, 83%. FEV1/FVC ratio 57%. CXR 05/19/2019 Images personally. Bilateral lower lobe infiltrates. Hyperinflated. CT Chest 05/19/2019 CTA of the chest Images personally reviewed. Bilateral emphysematous changes, worse in the right apex. Bronchiectasis. Lower lobe tree in blood. Pertinent Labs Reviewed 6-minute walk test performed in the office today, she walked 410 feet with the lowest oxygen saturation of 93%. She did not require supplemental oxygen with ambulation at this time. Assessment 1. COPD Gold 2B 2. Chronic hypoxic respiratory failure, appears to be resolved with 6-minute walk test on room air today normal 3. History of tobacco use 4. History of TB status post treatment 5. Pulmonary nodule 6. Incidental right breast mass seen on CT scan of the chest Plan -Discontinued Symbicort -Start Trelegy 100/62.5/25 mcg 1 puff daily, appears to be covered as preferred level 2 in [facility], she will call if it is too expensive -Swab for alpha-1 antitrypsin screening today -Respiratory culture with Gram stain and AFB culture -Consider more extensive work-up for bronchiectasis possibly next visit -Needs to stop smoking completely -6-minute walk test today for oxygen needs -Refer to surgery for right breast mass incidentally seen on CT scan in May Return in about 3 months (around 05/26/2020). Glenroy Davila MD CTOR PATIENT FINANCIAL SERVICES documented in this encounter Plan of Treatment Scheduled Referrals Name Type Priority Associated Diagnoses Orde r Schedule Ambulatory referral to General Surgery (OTHER) Referral Routine Breast mass Ordered: 02/24/2020 documented as of this encounter Visit Diagnoses Diagnosis Pulmonary emphysema, unspecified emphysema type ([facility])- Primary Breast mass Lump or mass in breast Bronchiectasis without complication ([facility] HHS/HCC) Bronchiectasis without acute exacerbation Chronic respiratory failure with hypoxia ([facility] HHS/HCC) Chronic respiratory failure Cigarette nicotine dependence in remission Tobacco use disorder documented in this encounter Care Teams Over The Road Driver Relationship Specialty Start Date End Date None, Provider, PCP - General 07/17/19 documented as of this encounter
--- OUTSIDE RECORDS SUMMARY | 2024-04-30 19:33 | XMS_ITS | Encounter Summary ---
Author Organization [facility] Address Replaced by [facility]. [place], [place] [id number] [place] [id number] Care Team Providers Care Sterile Processing Manager Name Role Phone None, Provider MD Primary Care Provider Unavaila ble Reason for Referral * (Routine) - Canceled Specialty Diagnoses / Procedures Referred By Contac t Referred To Contact Procedures OT eval and treat [facility] [place] [address] Phone: tel: fax: Referral ID Status Reason Start Date Expiration Date V isits Requested Visits Authorized [id number] Canceled 05/20/2019 06/17/2020 1 1 ETING RESEARCH COORDINATOR * (Routine) - Canceled Specialty Diagnoses / Procedures Referred By Contac t Referred To Contact Procedures PT eval and treat [place] [address] Phone: tel: [phone] fax: Referral ID Status Reason Start Date Expiration Date V isits Requested Visits Authorized [id number] Canceled 05/19/2019 06/16/2020 1 1 ETING RESEARCH COORDINATOR * Imaging (Emergency) - Closed Specialty Diagnoses / Procedures Referred By Contac t Referred To Contact RADIOLOGY Procedures CTA CHEST Elif Dozier MD Referral ID Status Reason Start Date Expiration Date Visits Re quested Visits Authorized [id number] Closed 05/19/2019 06/16/2020 1 1 ETING RESEARCH COORDINATOR Reason for Visit * Reason Comments Shortness Of Breath * Auth/Cert Specialty Diagnoses / Procedures Referred By Contac t Referred To Contact Diagnoses COPD exacerbation ([facility]/HCC) COPD exacerbation ([facility]) Referral ID Status Reason Start Date Expiration Date Visits Re quested Visits Authorized [id number] 1 1 Encounter Details Date Type Department Care Team (Late st Contact Info) Description 05/19/2019 3:24 PM MARKETING RESEARCH COORDINATOR - 05/23/2019 6:56 PM MARKETING RESEARCH COORDINATOR Hospital Encounter [facility] [place] [address] Gautam Villavicencio PA-C [address] [id number] Elif Dozier MD Malcolm, Ashley Helen, MD [place], [place] [address] [phone] (Work) Mounika Colvin NP [address] [place], [place] [address] [phone] (Work) Selina Guzmán MD [place], [place] [address] [phone] (Work) Nga Frank MD [address] [place] [id number] [phone] (Work) Shortness Of Breath Discharge Disposition: Detention Facility Social History Tobacco Use Types Packs/Day Years [...] on file documented as of this encounter Last Filed Vital Signs Vital Sign Reading Time Taken Comments Blood Pressure 126/50 05/23/2019 4:12 PM MARKETING RESEARCH COORDINATOR Pulse 110 05/23/2019 4:12 PM MARKETING RESEARCH COORDINATOR Temperature 36.9 ??C (98.5 ??F) 05/23/2019 4:12 PM CS T Respiratory Rate 20 05/23/2019 4:12 PM MARKETING RESEARCH COORDINATOR Oxygen Saturation 91% 05/23/2019 4:12 PM MARKETING RESEARCH COORDINATOR Inhaled Oxygen Concentration - - Weight 51 kg (112 lb 6.4 oz) 05/23/2019 4:42 AM MARKETING RESEARCH COORDINATOR Height 165.1 cm (5' 5 ) 05/19/2019 3:24 PM MARKETING RESEARCH COORDINATOR Body Mass Index 18.7 05/19/2019 3:24 PM MARKETING RESEARCH COORDINATOR documented in this encounter Functional Status * Question Answer Date of Assessment Author Status Do you have serious difficulty walking or climbing stairs? Yes 05/19/2019 10:18 PM MARKETING RESEARCH COORDINATOR Jas Molina RN Active * Question Answer Date of [...] Assessment Author Status No 05/19/2019 10:18 PM MARKETING RESEARCH COORDINATOR Acti ve * RETIRED Are you blind or do you have serious difficulty seeing, even when wearing glasses? Answer Date of Assessment Author Status No 05/19/2019 10:18 PM MARKETING RESEARCH COORDINATOR Acti ve * Do you have serious difficulty walking or climbing stairs? Answer Date of Assessment Author Status Yes 05/19/2019 10:18 PM MARKETING RESEARCH COORDINATOR Sujatha Molina RN Active * Do you [...] Sandoval RN Active documented in this encounter Discharge Summaries * Selina Guzmán MD - 05/23/2019 6:56 PM CST Hospitalist Discharge Summary Patient ID: Carleen Lake. female. 1935. Admit date: 05/19/2019 3:24 PM Discharge date and time: 05/26/19 Admitting Physician: Nga Frank MD Attending Physician: No att. providers found Primary Care Physician: Maryann Krueger MD Discharge Physician: SELINA GUZMÁN MD Hospital Diagnosis: COPD exacerbation ([facility]) Admission Condition: fair Discharged Condition: Stable Code Status: Prior Indication for Admission: Chief Complaint Patient presents with ??? Shortness Of Breath Readmission/Mortality Score at discharge: Low 0-28, Medium 29-58, High >59 LACE+ Score Readmission Score: 71 Male Patient: Urgent Admission: 15 Discharge Institution: Length of Stay: 5 Alternative Level of Care Status: 0 ED Visits in Previous 6 Months: 0 Elective Admission in Previous Year: 0 Comorbidity Score (by age & number of urgent admissions): 51 Hospital Course: Carleen Lake is a 83-year-old female With past medical history significant for falls, GERD without esophagitis, HTN and COPD complaining of SOB as of this morning. Patient was discharged on 05/16/2019 with a new diagnosis of COPD. Since leaving, she has not been able to breath.Increasing her O2 levels above her usual 2L did not give any relief. Patient awoke this morning feeling more SOB and was escorted to the ED via ambulance. She has not had her symbicort or any nebulizer treatments due to issues with her pharmacy. She has been using her albuterol inhaler 4 times daily and taking her prednisone pills. She has felt short winded with on and off chills and a cough productive of some milky white sputum.Patient reports rare chest discomfort. She does have loss of appetite. Patient only eats a few small cookies a day with her medication. She denies fever, N/V/D, dysuria, hematuria, and hematochezia. Patient was given IV Solu-Medrol and nebulized treatments by EMS. COPD exacerbation Recently discharged for same Supplement O2 IV steroids-wean as tolerated PRN and scheduled nebs Incentive spirometer Hold Symbicort with above treatment??(has not been taking this at home anyway due to pharmacy issues) Doxycycline Weaned down steroids 05/21, anticipate transition to PO and taper at DC Start flonase, cepachol throat spray and humidified O2 for sore throat ?? SIRS Present in ER with tachycardia, tachypnea, leukocytosis Suspect from steroids, stress reaction/COPD exacerbation PCT??only 0.08- patient does NOT have sepsis ?? Elevated lactate 2.5 2/2 albuterol This is not sepsis ?? Chronic hypoxic respiratory failure On 2 L??at rest, 4L with exertion ??at home Supplement O2, wean as tolerated? Hypertension Continue amlodipine and monitor ?? History of peptic ulcer disease Also Che-Wang tear No acute issues Cont home PPI ?? Breast mass Incidental finding on imaging Follow-up with PCP if patient wishes ?? Advanced care plan Son is POA. Wishes to be DNR ?? Prophylaxis Lovenox, diet, IS, PT Findings that require further workup: Consults: none Significant Diagnostic Studies: No results found for this or any previous visit (from the past 24 hour(s)). Radiology Reports : CTA chest?? 1. ??Extensive upper lobe emphysematous changes. 2. ??Extensive bronchiectasis. 3. ??Low-density material in the bronchial lumens both lower lobes may represent inspissated mucus or other secretions. ??Peripheral consolidation probably scarring or atelectasis. ??Likely underlying fibrosis. 4. ??RIGHT BREAST MASS. ??INCIDENTAL. ??FURTHER EVALUATION RECOMMENDED. 5. ??No CT evidence of pulmonary embolism. ?? CXR 1. Lung changes which can be seen with COPD. 2. Potentially acute on chronic lower lobe interstitial process; findings may represent a bronchitis superimposed on underlying chronic interstitial lung disease; no confluent consolidation. Follow-up HR CT chest May be of interest.. Discharge Exam: Filed Vitals: 05/23/19 0442 05/23/19 0842 05/23/19 1216 05/23/19 1612 BP: 128/59 120/47 133/43 126/50 Pulse: 107 114 106 110 Resp: Temp: 97.3 ??F (36.3 ??C) 96.8 ??F (36 ??C) 97.8 ??F (36.6 ??C) 98.5 ??F (36.9 ??C) TempSrc: Oral Oral Oral Oral SpO2: 93% 93% 91% 91% Weight: 51 kg (112 lb 6.4 oz) Height: Physical Exam Constitutional: She appears well-developed and well-nourished. No distress. HENT: Head: Normocephalic and atraumatic. Eyes: EOM are normal. Neck: Normal range of motion. Cardiovascular: Normal rate and regular rhythm. No murmur heard. Pulmonary/Chest: Effort normal. No respiratory distress. She has decreased breath sounds. She has no wheezes. She has no rales. Abdominal: Soft. She exhibits no distension. There is no tenderness. Musculoskeletal: Normal range of motion. She exhibits no edema. Neurological: She is alert. Skin: Skin is warm and dry. No erythema. Psychiatric: She has a normal mood and affect. Her behavior is normal. Discharge Medications: Medication List START taking these medications doxycycline hyclate 100 MG capsule Commonly known as: VIBRAMYCIN Take 1 capsule (100 mg total) by mouth every 12 (twelve) hours for 5 days. fluticasone propionate 50 MCG/ACT nasal spray Commonly known as: FLONASE 1 spray by Each Nostril route daily. CHANGE how you take these medications predniSONE 10 mg tablet Commonly known as: DELTASONE Take 4 tablets (40 mg total) by mouth daily for 3 days, THEN 2 tablets (20 mg total) daily for 3 days, THEN 1 tablet (10 mg total) daily for 3 days. Start taking on: May 23, 2019 What changed: See the new instructions. CONTINUE taking these medications albuterol sulfate HFA 108 (90 Base) MCG/ACT inhaler Inhale 2 puffs into the lungs 4 (four) times daily. amlodipine 5 MG tablet Commonly known as: NORVASC Take 1 tablet (5 mg total) by mouth daily. budesonide-formoterol 160-4.5 MCG/ACT inhaler Commonly known as: SYMBICORT Inhale 2 puffs into the lungs 2 (two) times daily. pantoprazole EC 40 MG tablet Commonly known as: PROTONIX Take 1 tablet (40 mg total) by mouth daily. Where to Get Your Medications These medications were sent to [facility]/pharmacy #[id number] [place] [id number] ?? doxycycline hyclate 100 MG capsule ?? fluticasone propionate 50 MCG/ACT nasal spray ?? predniSONE 10 mg tablet Disposition: Detention Facility Time Spent on Discharge: more than 30 minutes Signed: SELINA GUZMÁN MD ETING RESEARCH COORDINATOR ETING RESEARCH COORDINATOR documented in this encounter Discharge Instructions * Discharge Instructions* Indu Bermudez RN - 05/23/2019 5:17 PM MARKETING RESEARCH COORDINATOR Images from the original note were not included. Patient Education Exacerbation of COPD Discharge Instructions About this topic Chronic obstructive pulmonary disease (COPD) is a lung disease where air is blocked from coming outof your lungs as you breathe out. This makes breathing hard and there is no cure. However, there are drugs you can take and things you can do to make it better. COPD causes: ?? Damage to the air sacs of the lungs. This is emphysema. ?? Swelling and irritation in the large airways of the lungs or breathing tubes. This is chronic bronchitis. If you are around smoke, pollution, or dust, you may find it harder than usual to breathe. Your doctor may call this an exacerbation which is an increase in your signs and how severe your illness is.It is important that you monitor your signs so they can be treated right away. What care is needed at home? ?? Ask your doctor what you need to do when you go home. Make sure you ask questions if you do not understand what the doctor says. This way you will know what you need to do. ?? Work to get as healthy as possible. ? Be active at home by: ? Walking. Ask your doctor how far you can walk and how often you should walk. ? Exercising your arms, shoulders, and legs. Ask your doctor or therapist about what exercises are best for you. ? Do breathing exercises 2 to 3 times each day. ? Eat 6 small meals per day. It may be easier to breathe when your belly is not full. Ask your doctor what foods to eat to get more energy. ? Reduce stress. ?? Keep away from things that make it harder for you to breathe. ? If you are a smoker, stop. ? Avoid being close to smokers when you are out. ? Do not allow smoking in your home or auto. ? Wear a mask when you are around dust or pollution. ?? Protect yourself from getting sick. ? Wash your hands often. ?? Ask visitors with a cold to wear a mask or reschedule their visit. ?? Save your energy. ? Place the things you use within easy reach where you do not have to bend over or stretch to get them. ? Use a cart with wheels to move things around your house. ? Avoid heavy activities unless your doctor tells you it is OK. ?? Use oxygen if you need it. Your doctor may give you oxygen to use at home. You will be taught how to use the oxygen at home by the staff that brings it to your home. Follow your doctor's advice onusing it. ? Never change the amount of oxygen flowing without talking to your doctor. ? Always have a back-up oxygen supply at home or when you go out. ? No candles, matches, cigarettes, or open flame should ever come near your oxygen. What follow-up care is needed? Your doctor may ask you to make visits to the office to check on your progress. Be sure to keep these visits. What drugs may be needed? The doctor may order drugs to: ?? Make breathing easier ?? Relieve coughing ?? Reduce swelling in your airways ?? Prevent or fight an infection Will physical activity be limited? Your physical activities may be limited as long as your COPD is worse. Avoid heavy and tiring activities. Talk to your doctor about the right amount of activity for you. What changes to diet are needed? Eat a balanced diet including food rich in vitamin C. This will help boost your body's ability to fight against infection and help you maintain a healthy weight. What problems could happen? ?? Lung infection ?? High blood pressure ?? Heart problems ?? Weight loss What can be done to prevent this health problem? ?? If you smoke, quit. The more you smoke, the more likely your COPD will get worse. ?? Avoid being around anyone who smokes. This is secondhand smoke. ?? Avoid being around any air pollution or irritants such as cleaning solutions or chemicals. ?? Wear a mask and other protective items if you work around chemicals, irritants, or toxins. ?? Stay away from crowded places. ?? Get a flu shot each year. Ask your doctor if you need a pneumonia shot. When do I need to call the doctor? ?? Signs of infection. These include a fever of 100.4??F (38??C) or higher, chills, very bad sore throat, coughing more sputum, or change in color of sputum. ?? Breathing is getting worse. You feel like you: ? Breathe harder or faster ? Get less air ? Have more wheezing or chest tightness. ? Use your rib muscles to help you breathe so that the skin between the ribs sink in as you breathe. ? Need to lean forward more than normal when you are sitting. ?? Cough that does not go away ?? Blue or zuniga skin color ?? Have headaches often ?? Feeling extra sleepy or confused ?? You are not feeling better in 2 to 3 days or you are feeling worse Teach Back: Helping You Understand The Teach Back Method helps you understand the information we are giving you. The idea is simple. After talking with the staff, tell them in your own words what you were just told. This helps to makesure the staff has covered each thing clearly. It also helps to explain things that may have been abit confusing. Before going home, make sure you are able to do these: ?? I can tell you about my condition. ?? I can tell you what I can do to help protect my lungs and save my strength. ?? I can tell you what I will do if I have chest tightness, wheezing, a cough that does not go away, or trouble breathing. Where can I learn more? [employer] http://www.lung.org/csrc-cpexux-ryq-diseases/ycbk-vjcxzid-ztpbkr/copd/living-wit h-copd/ [employer] https://www.lung.ca/lung-health/lung-disease/copd/flare-ups FamilyDoctor.org http://familydoctor.org/familydoctor/en/diseases-conditions/chronic-obstructive- pulmonary-disease.html Last Reviewed Date 2017 Consumer Information Use and Disclaimer This information is not specific medical advice and does not replace information you receive from your health care provider. This is only a brief summary of general information. It does NOT include all information about conditions, illnesses, injuries, tests, procedures, treatments, therapies, discharge instructions or life-style choices that may apply to you. You must talk with your health care provider for complete information about your health and treatment options. This information should not be used to decide whether or not to accept your health care provider???s advice, instructions or recommendations. Only your health care provider has the knowledge and training to provide advice that is right for you. Copyright Copyright ?? 2019 [employer]. and its affiliates and/or licensors. All rights reserved. ETING RESEARCH COORDINATOR * Attachments The following attachments cannot be sent through Care Everywhere. * Doxycycline, ADULT ([place]) * Fluticasone (Nasal), ADULT ([place]) documented in this encounter Medications at Time of Discharge albuterol sulfate HFA 108 (90 Base) MCG/ACT inhaler Inhale 2 puffs into the lungs 4 (four) times daily. 1 Inhaler 05/16/2019 amlodipine 5 MG tablet Take 1 tablet (5 mg total) by mouth daily. 30 tablet 05/17/2019 07/22/2019 budesonide-formot sunshine 160-4.5 MCG/ACT inhaler Inhale 2 puffs into the lungs 2 (two) times daily. 1 Inhaler 05/16/2019 07/22/2019 doxycycline hyclate 100 MG capsule Take 1 capsule (100 mg total) by mouth every 12 (twelve) hours for 5 days. 10 capsule 05/23/2019 05/28/2019 fluticasone propionate 50 MCG/ACT nasal spray 1 spray by Each Nostril route daily. 18.2 mL 2 05/24/2019 07/22/2019 pantoprazole EC 40 MG tabletIndications :Gastroesophageal reflux disease without esophagitis Take 1 tablet (40 mg total) by mouth daily. 30 tablet 05/17/2019 07/22/2019 predniSONE 10 mg tablet Take 4 tablets (40 mg total) by mouth daily for 3 days, THEN 2 tablets (20 mg total) daily for 3 days, THEN 1 tablet (10 mg total) daily for 3 days. 21 tablet 05/23/2019 06/01/2019 documented as of this encounter Progress Notes * Austin Mejia LCSW - 05/23/2019 6:56 PM CST 05/26/19 0845 Discharge Planning Living Arrangements Alone Support Systems Family members;Children Type of Residence Private residence Assistance Needed No IV Infusion at discharge No Patient expects to be discharged to: [facility] Pt was d/c to [facility] on 05/23/19 at 1856 by [facility].No further social servicesrequested. ETING RESEARCH COORDINATOR * Shayy Josue RD - 05/23/2019 3:27 PM CST A:PT SEEN FOR F/U. GOAL MET FOR INTAKE > 60% AND TAKING AT LEAST ONE MIGHTY SHAKE AND ONE SNACK DAILY EACH. PT REPORTS IS DRINKING ALL THE SUPPLEMENTS AND CHOCOLATE MILKS SEND SNACKS. PT IS PLEASED WITH WEIGHT GAIN TO 112# FROM 107# SHE STATES SHE WEIGHED PRIOR TO ADMIT. INTAKE RECORDS REFLECT 100% INTAKE FOR LAST 3 MEALS PROVIDED. REVIEWED LABS AND MEDICATIONS. D: CONTINUE WITH PREVIOUS PES. I: GOALS: RECOMMEND CONTINUING WITH REGULAR DIET, MIGHTY SHAKES WITH MEALS AND SNACKS BETWEEN MEALS. M/E; PT AT MODERATE NUTRITION RISK. F/U 05/30/19. GOALS: TAKING AT LEAST ONE MIGHTY SHAKE AND ONE CHOCOLATE MILK DAILY EACH, INTAKE > 70%. ETING RESEARCH COORDINATOR * Prema Martinez PTA - 05/23/2019 12:48 PM CST 05/23/19 1000 Therapy Visit Ordering Provider ANDRES [id number];Pt stated she is feeling better and pt agreed to walk with therapy Reason for admission COPD EXACERBATION Relevant Comorbidities/ Personal Factors to PT COPD, PNEUMONIA, GI BLEED, HTN, CHE WANG TEAR Verified Two Patient Identifiers Yes Patient consents to therapy Yes Acute Inpatient PT Time Calculation PT Start Time 1000 PT Stop Time 1025 PT Time Calculation (min) 25 min Precautions Precautions Yes/No Yes General Precautions Bed Alarm;Chair Alarm;Fall Risk;Monitor Vitals;Supplemental oxygen Pain Pain Patient does not offer or c/o pain Activity Tolerance Endurance Tolerates 20 - 30 min activity with rests Cognition Overall Cognitive Status WFL Bed Mobility Supine to Sit Modified independence Sit to Supine Modified independence TRANSFERS Sit to Stand Modified independence Gait Gait Assistance SBA/supervision Assistive Device 2 Wheeled walker Ambulation Distance (Feet) 100 feet Other (Comment) Pt demonstrated fair tolerance with fair balance with W. W with no SOB nor LOB Balance Standing - Static SBA Standing - Dynamic SBA Exercises Standing LE Exercise B LE's; ankle pumps, knee extension, marching, hip abd/add x 10-15 reps with rest breaks Patient/Family Training Bed Mobility x Transfer Training x Gait Training x Exercise Program x Recommendation PT Recommendation PT during Hospitalization Plan PT Treatments/Interventions Gait Training;Therapeutic Exercises;Therapeutic Activities;Neuromuscular re-education;Patient/family training Progress Slow progress, decreased activity tolerance PT Frequency Daily;BID;6 times/week PT plan for next session Continue on gait, dynamic balance and B LE's and hip strength and endurance If this is the last treatment note,it will serve as the discharge summary Yes End of Session Safety End of Session Safety Bed alarm set/activated;Call light within reach ETING RESEARCH COORDINATOR * Ana Starr, OT Student - 05/23/2019 12:33 PM CST 05/23/19 1002 Therapy Visit Reason for admission COPD EXACERBATION Comorbidities Relevant to OT COPD, Acute respiratory failure, Dizziness, Duodenitis without hemorrhage, Che-Wang tear, Pharyngoesophageal dysphagia, sciatica of L side Ordering Provider ANDRES Verified Two Patient Identifiers Yes Patient consents to therapy Yes Acute Inpatient OT Time Calculation OT Start Time 1002 OT Stop Time 1025 OT Time Calculation (min) 23 min Precautions Precautions Yes/No Yes General Precautions Bed Alarm;Chair Alarm;Fall Risk;Monitor Vitals;Supplemental oxygen Instructed on Precautions Yes;Verbalizes understanding Subjective Subjective Room: A423. Pt supine in bed upon arrival. Agreeable to ther. session. Pt reports she isfeeling much better this date than yesterday. Pain Pain No Activity Tolerance Endurance Tolerates 20 - 30 min activity with rests Activity Tolerance Comments Good tolerance. No SOB noted. Cognition Overall Cognitive Status WFL ADL Grooming Assistance Modified independent (Device);Standing at sink Grooming Deficit Increased time to complete Grooming Comment Hand hygiene standing at sink with no assistive device. Toileting Assistance Modified independent Toileting Deficit Increased time to complete Toileting Comment Pt completed toileting on standard commode; sit<->stand for teo hygiene with increased time to complete. Bed Mobility Supine to Sit Modified independence Sit to Supine Modified independence Functional Transfers Sit to Stand Modified independence (EOB) Toilet Transfers Supervision Functional Mobility Pt completed functional mobility from bed<->bathroom without the use of assistve device while maintaining stable SpO2. Balance Sitting - Static Independent Sitting - Dynamic Independent Standing - Static Modified independence Standing - Dynamic SBA Interventions R Shoulder Strengthening Free Weights;Flexion;Extension;ABduction;ADduction;Sitting L Shoulder Strengthening Free Weights;Flexion;Extension;ABduction;ADduction;Sitting R Elbow AROM Flexion;Extension;Sitting L Elbow AROM Flexion;Extension;Sitting R Elbow Strengthening Free Weights;Flexion;Extension;Sitting L Elbow Strengthening Free Weights;Flexion;Extension;Sitting R Forearm AROM Supination;Pronation;Sitting L Forearm AROM Supination;Pronation;Sitting R Wrist AROM Flexion;Extension;Sitting L Wrist AROM Flexion;Extension;Sitting Other (Comment) Pt completed ther. ex sitting EOB with 1lb, [id number], x2sets. To increase BUE strength/activity tolerance needed for self care tasks. Patient/Family Training Self Cares x Transfer Training x Precautions x Exercise Program x Other (Comment) One:One. Verbal/Hands on. Pt receptive to ther. session. Recommendation OT Recommendation OT during Hospitalization;OT at Detention Facility OT Equipment Recommended Tub/shower chair with back;Grab bars in shower Plan OT Treatment/Intervention Self-care training;Therapeutic exercises;Therapeutic activities;Manual therapy;Patient/family training;Functional activity;Safety Progress Progressing toward goals OT Frequency 3 times/week OT plan for next session ADLS/Ther. Ex If this is the last treatment note, it will serve as the discharge summary Yes End of Session Safety End of Session Safety Bed alarm set/activated;Call light within reach;Nursing aware of session Cosigned by MARIA LUISA Dai at 05/27/2019 12:10 PM MARKETING RESEARCH COORDINATOR ETING RESEARCH COORDINATOR ETING RESEARCH COORDINATOR * Austin Mejia LCSW - 05/23/2019 9:40 AM CST DONN contacted pt's son,Fabián,this morning re:snf choices.He will call DONN back at 10AM. The son gave DONN the names of [facility] and [facility] for placement. DONN faxed referrals to both at 10:20 AM. Await reply. Michel confirmed at 4:45Pm they want to admit pt today. DONN set up a 6Pm [facility] ambulance pickling tank operator. Donn informed the pt and her son. PCS form completed. Reviewed Important Message from Medicare with Patient. The form was initialed by the Patient as having been received and understood. A copy of the form was left with Patient and a copy of the form was placed in the patient's skinny file for scanning. ETING RESEARCH COORDINATOR ETING RESEARCH COORDINATOR ETING RESEARCH COORDINATOR ETING RESEARCH COORDINATOR * Indu Bermudez RN - 05/23/2019 9:32 AM CST * Kari Dumont RN - 05/23/2019 7:46 AM CST Spoke with the DME liaison Mounika Balbuena (we had been working on obtaining a home nebulizer forpatient at discharge). Patient is now interested in discharging to a SNF for short term rehab. Mounika informed me that if the patient discharges to a SNF the facility would need to arrange a nebulizer for home. ETING RESEARCH COORDINATOR * Dana Mahajan RN - 05/23/2019 1:41 AM CST Problem: Gas Exchange - Impaired Goal: Adequate oxygenation Outcome: Met This Shift Note: Pt denied having SOB. Has expiratory wheezes. On 2L O2 per nc. Problem: Reduced risk for falls/injury Goal: Reduced Risk for Falls/Injury Outcome: Met This Shift Note: No falls. Bed alarm on and call light within reach. Goal: Reduced Risk of Confusion (Acute vs Chronic) Outcome: Met This Shift Note: Pt is A&O x4 Goal: Reduced Risk of Altered Elimination Outcome: Met This Shift Note: Pt is continent of bowel and bladder. ETING RESEARCH COORDINATOR * Camden Ibanez OTR - 05/22/2019 4:01 PM CST 05/22/19 1420 Therapy Visit Reason for admission COPD EXACERBATION Comorbidities Relevant to OT COPD, Acute respiratory failure, Dizziness, Duodenitis without hemorrhage, Che-Wang tear, Pharyngoesophageal dysphagia, sciatica of L side Ordering Provider ANDRES Verified Two Patient Identifiers Yes Patient consents to therapy Yes Acute Inpatient OT Time Calculation OT Start Time 1420 OT Stop Time 1437 OT Time Calculation (min) 17 min Precautions Precautions Yes/No Yes General Precautions Bed Alarm;Chair Alarm;Fall Risk;Monitor Vitals;Supplemental oxygen Instructed on Precautions Yes;Verbalizes understanding Subjective Subjective RM [id number]: Pt supine in bed, reports having a stomach ache and a sore throat. pt verbalizes some distress regarding discharging home vs. going to SNF for further rehab. Pt believes she wouldbenefit from further rehab, this development writer agrees. Pain Pain Patient does not offer or c/o pain Activity Tolerance Endurance Tolerates 10 - 20 min activity with rests Activity Tolerance Comments Pt with fair tolerance, reports feeling weak and tired. SPO2 WNL throughout. Cognition Overall Cognitive Status WFL ADL Grooming Assistance Stand by;Standing at sink Grooming Deficit Increased time to complete;Supervision/safety;Setup Grooming Comment hand hygiene standing at sink with SBA Toileting Assistance Stand by Toileting Deficit Supervision/safety;Increased time to complete;Setup Toileting Comment increased time due to fatigue and feeling ill; labored breathing with activity noted Bed Mobility Supine to Sit SBA/supervision Sit to Supine Modified independence Functional Transfers Sit to Stand Modified independence Toilet Transfers Supervision;Min assist (close guard for safety; 2WW) Balance Standing - Static SBA Standing - Dynamic SBA;Min Assist Other (Comment) standing balance with support of the WW Patient/Family Training Self Cares x Transfer Training x Precautions x Other (Comment) Pt fairly receptive to tasks presented Recommendation OT Recommendation OT during Hospitalization;OT at Detention Facility OT Equipment Recommended Tub/shower chair with back;Grab bars in shower Plan OT Treatment/Intervention Self-care training;Therapeutic exercises;Therapeutic activities;Manual therapy;Patient/family training;Functional activity;Safety Progress Slow progress, decreased activity tolerance OT Frequency 3 times/week OT plan for next session ADLs, Ther ex If this is the last treatment note, it will serve as the discharge summary Yes End of Session Safety End of Session Safety Bed alarm set/activated;Call light within reach ETING RESEARCH COORDINATOR * Selina Guzmán MD - 05/22/2019 3:23 PM CST Hospitalist Daily Progress Note Subjective Patient seen and examined, c/o sore throat and poor appetite. Family now thinking placement at SNF would be better for pt, SW assisting. Objective Filed Vitals: 05/22/19 0022 05/22/19 0506 05/22/19 0907 05/22/19 1312 BP: 141/58 134/55 141/61 (!) 153/60 Pulse: 101 95 97 121 Resp: Temp: 98.1 ??F (36.7 ??C) 97.1 ??F (36.2 ??C) 97.7 ??F (36.5 ??C) 97.4 ??F (36.3 ??C) TempSrc: Oral Oral Oral Oral SpO2: 95% 93% 96% 94% Weight: 52 kg (114 lb 10.2 oz) Height: Physical Exam: Physical Exam Constitutional: She appears well-developed and well-nourished. No distress. HENT: Head: Normocephalic and atraumatic. Eyes: EOM are normal. Neck: Normal range of motion. Cardiovascular: Normal rate and regular rhythm. No murmur heard. Pulmonary/Chest: Effort normal. No respiratory distress. She has decreased breath sounds. She has no wheezes. She has no rales. Abdominal: Soft. She exhibits no distension. There is no tenderness. Musculoskeletal: Normal range of motion. She exhibits no edema. Neurological: She is alert. Skin: Skin is warm and dry. No erythema. Psychiatric: She has a normal mood and affect. Her behavior is normal. Intake/Output 24H Total: Intake/Output Summary (Last 24 hours) at 05/22/2019 1523 Last data filed at 05/22/2019 0907 Gross per 24 hour Intake 538 ml Output 950 ml Net -412 ml Medication ??? amlodipine 5 mg Oral Daily ??? doxycycline hyclate 100 mg Oral 2 times per day ??? enoxaparin 40 mg Subcutaneous Q24H ??? ipratropium-albuterol 3 mL Nebulization Q4H ??? methylPREDNISolone 40 mg Intravenous BID ??? pantoprazole EC 40 mg Oral Daily PRN Meds: acetaminophen, albuterol, docusate sodium, hydrocodone-acetaminophen, morphine, naLOXone,ondansetron, polyethylene glycol Labs: noted X-Ray CTA chest 1. ??Extensive upper lobe emphysematous changes. 2. ??Extensive bronchiectasis. 3. ??Low-density material in the bronchial lumens both lower lobes may represent inspissated mucus or other secretions. ??Peripheral consolidation probably scarring or atelectasis. ??Likely underlying fibrosis. 4. ??RIGHT BREAST MASS. ??INCIDENTAL. ??FURTHER EVALUATION RECOMMENDED. 5. ??No CT evidence of pulmonary embolism. ?? CXR 1. Lung changes which can be seen with COPD. 2. Potentially acute on chronic lower lobe interstitial process; findings may represent a bronchitis superimposed on underlying chronic interstitial lung disease; no confluent consolidation. Follow-up HR CT chest May be of interest.. Assessment/Plan: COPD exacerbation (CMS/[facility]) COPD exacerbation Recently discharged for same Supplement O2 IV steroids-wean as tolerated PRN and scheduled nebs Incentive spirometer Hold Symbicort with above treatment (has not been taking this at home anyway due to pharmacy issues) Doxycycline Weaned down steroids 05/21, anticipate transition to PO tomorrow Start flonase, cepachol throat spray and humidified O2 for sore throat ?? SIRS Present in ER with tachycardia, tachypnea, leukocytosis Suspect from steroids, stress reaction/COPD exacerbation PCT only 0.08- patient does NOT have sepsis ?? Elevated lactate 2.5 05/11 albuterol This is not sepsis ?? Chronic hypoxic respiratory failure On 2 L at rest, 4L with exertion at home Supplement O2, wean as tolerated? Hypertension Continue amlodipine and monitor ?? History of peptic ulcer disease Also Che-Wang tear No acute issues Cont home PPI ?? Breast mass Incidental finding on imaging Follow-up with PCP if patient wishes Advanced care plan Son is POA. Wishes to be DNR ?? Prophylaxis Lovenox, diet, IS, PT ?? Dispo: SW working on SNF placement now SELINA GUZMÁN MD 05/22/2019 3:23 PM ETING RESEARCH COORDINATOR * Prema Martinez, BOATBUILDER WOOD - 05/22/2019 12:58 PM CST 05/22/19 1130 Therapy Visit Ordering Provider ANDRES [id number]; Pt was supine in bed and pt stated she can not walk long distance due to pt does not feeling well Reason for admission COPD EXACERBATION Relevant Comorbidities/ Personal Factors to PT COPD, PNEUMONIA, GI BLEED, HTN, CHE WANG TEAR Verified Two Patient Identifiers Yes Patient consents to therapy Yes Acute Inpatient PT Time Calculation PT Start Time 1130 PT Stop Time 1155 PT Time Calculation (min) 25 min Precautions General Precautions Bed Alarm;Chair Alarm;Fall Risk;Monitor Vitals;Supplemental oxygen Instructed on Precautions Yes;Verbalizes understanding Pain Pain Patient does not offer or c/o pain Interventions (Pt stated she feels weak and tired ) Activity Tolerance Endurance Tolerates 20 - 30 min activity with rests Cognition Overall Cognitive Status WFL Bed Mobility Supine to Sit Independent TRANSFERS Sit to Stand Modified independence Other (Comment) Continue on gait with monitoring BP and balance and B LE's and hip strength and endurance Gait Gait Assistance SBA/supervision Assistive Device 2 Wheeled walker Ambulation Distance (Feet) 25 feet Other (Comment) Pt demonstrated guarded ambulation with W. W with SBS due to pt feels weak and tired Balance Sitting - Static Independent Sitting - Dynamic Independent Standing - Static SBA Standing - Dynamic SBA Exercises Standing LE Exercise B LE's; ankle pumps, knee extension, marching, hip abd/add x 10-15 reps with rest breaks Patient/Family Training Bed Mobility x Transfer Training x Gait Training x Exercise Program x Recommendation PT Recommendation PT during Hospitalization (POSSIBLE TRANSITION TO ALEX OR WITH FAMILY ) PT Equipment Recommended (PT STATES HER FRIEND WILL GIVE HER A W/W IF NEEDED) Plan PT Treatments/Interventions Gait Training;Therapeutic Exercises;Therapeutic Activities;Neuromuscular re-education;Patient/family training Progress Slow progress, decreased activity tolerance PT Frequency Daily;BID;6 times/week PT plan for next session Continue on gait, dynamic balance and B LE's and hip strength and endurance If this is the last treatment note,it will serve as the discharge summary Yes End of Session Safety End of Session Safety Chair alarm set/activated;Call light within reach ETING RESEARCH COORDINATOR * Dejah Mosquera LCSW - 05/22/2019 12:55 PM CST This SW met with pt's son and reviewed [facility] list of SNF. Per son, this will be very temporary placement just to get her strength up before returning home alone. Pt's son states he plans to visita few places and then will reach back out to to relay choices. Will await his call back, SW number provided on [employer] listing. No other needs noted at this time. ETING RESEARCH COORDINATOR * Dejah Mosquera LCSW - 05/22/2019 11:19 AM CST This SW called pt's son to discuss SNF options as he specified to watch case polisher he'd like to pursue it. Per son Fabián, he is interested in short term rehab for pt. Fabián states he'll be at this hospitalin the next hour to hour and a half. This SW printed list from [facility] and will provide to pt's son. This SW left msg for [facility] to complete screening. No other needs noted at this time. ETING RESEARCH COORDINATOR * Kain Rand RN - 05/22/2019 10:24 AM CST Per Darlyn with Med data, patient is now Medicaid pending, [id number]. Patient's son Fabián called regarding wanting placement for his mother at discharge. Referral made to social work, Austin Mejia LCSW to follow up with son Fabián, . ETING RESEARCH COORDINATOR * Dana Mahajan RN - 05/22/2019 5:02 AM CST Problem: Gas Exchange - Impaired Goal: Adequate oxygenation Outcome: Met This Shift Note: Pt denied having SOB or difficulty breathing. Problem: Reduced risk for falls/injury Goal: Reduced Risk for Falls/Injury Outcome: Met This Shift Note: No falls. Bed alarm on and call light within reach. Goal: Reduced Risk of Confusion (Acute vs Chronic) Outcome: Met This Shift Note: Pt A&O x4 ETING RESEARCH COORDINATOR * Luda Caputo RN - 05/21/2019 4:28 PM CST Problem: Daily Care Goal: Daily care needs are met Description Assess and monitor ability to perform self care and identify potential discharge needs. Outcome: Progressing Problem: Discharge Planning Goal: Knowledge of discharge instructions Outcome: Progressing Problem: Activity Intolerance Goal: Improved activity tolerance Outcome: Progressing Problem: Airway Clearance - Ineffective Goal: Patent airway Outcome: Progressing Problem: Breathing Pattern - Ineffective Goal: Respiratory rate within specified parameters Outcome: Progressing Problem: Gas Exchange - Impaired Goal: Adequate oxygenation Outcome: Progressing Problem: Tobacco Use Goal: Knowledge of tobacco-use cessation methods Outcome: Progressing Problem: Reduced risk for falls/injury Goal: Reduced Risk for Falls/Injury Outcome: Progressing Goal: Reduced Risk of Confusion (Acute vs Chronic) Outcome: Progressing Goal: Reduced Risk of Symptomatic Depression Outcome: Progressing Goal: Reduced Risk of Altered Elimination Outcome: Progressing Goal: Reduced Risk of Dizziness/Vertigo/Balance Outcome: Progressing Goal: Reduced Risk of Polypharmacy Outcome: Progressing ETING RESEARCH COORDINATOR * Prema Martinez, BOATBUILDER WOOD - 05/21/2019 3:20 PM CST 05/21/19 1400 Therapy Visit Ordering Provider ANDRES [id number]; Pt was supine in bed and agreed to work with therapy Reason for admission COPD EXACERBATION Relevant Comorbidities/ Personal Factors to PT COPD, PNEUMONIA, GI BLEED, HTN, CHE WANG TEAR Verified Two Patient Identifiers Yes Patient consents to therapy Yes Acute Inpatient PT Time Calculation PT Start Time 1400 PT Stop Time 1425 PT Time Calculation (min) 25 min Precautions Precautions Yes/No Yes General Precautions Bed Alarm;Chair Alarm;Fall Risk;Monitor Vitals;Supplemental oxygen Instructed on Precautions Yes;Verbalizes understanding Pain Pain Patient does not offer or c/o pain Activity Tolerance Endurance Tolerates 20 - 30 min activity with rests Cognition Overall Cognitive Status WFL Bed Mobility Supine to Sit Independent Sit to Supine Independent TRANSFERS Sit to Stand Modified independence Other (Comment) Transfer with W.W Gait Gait Assistance SBA/supervision Assistive Device 2 Wheeled walker Ambulation Distance (Feet) 130 feet Other (Comment) Pt demonstrated slow gabriel with fair balance, however noted B LE's weakness and decreased endurance Balance Sitting - Static Independent Sitting - Dynamic Independent Standing - Static Modified independence Standing - Dynamic SBA Exercises Standing LE Exercise B LE's; ankle pumps, knee extension, marching, hip abd/add x 10-15 reps with rest breaks Patient/Family Training Bed Mobility x Transfer Training x Gait Training x Recommendation PT Recommendation PT during Hospitalization (POSSIBLE TRANSITION TO [facility] OR WITH FAMILY ) PT Equipment Recommended (PT STATES HER FRIEND WILL GIVE HER A W/W IF NEEDED) Plan PT Treatments/Interventions Gait Training;Therapeutic Exercises;Therapeutic Activities;Neuromuscular re-education;Patient/family training Progress Slow progress, decreased activity tolerance PT Frequency Daily;BID;6 times/week PT plan for next session Continue on gait, dynamic balance and B LE's and hip strength and endurance If this is the last treatment note,it will serve as the discharge summary Yes End of Session Safety End of Session Safety Call light within reach;Bed alarm set/activated ETING RESEARCH COORDINATOR * Selina Guzmán MD - 05/21/2019 2:25 PM CST Hospitalist Daily Progress Note Subjective Patient seen and examined, states her family is looking at assisted living for her to go to at discharge, she has unable to go back home independently, will go home with son if not arranged at the time of discharge. No acute events overnight, feeling better in general, tired but wheezing is improving. She also complains of sore throat Objective Filed Vitals: 05/21/19 0700 05/21/19 0740 05/21/19 1104 05/21/19 1131 BP: 134/50 (P) 141/51 Pulse: 92 (P) 102 Resp: 18 (P) 18 Temp: 97.7 ??F (36.5 ??C) (P) 97.6 ??F (36.4 ??C) TempSrc: Oral (P) Oral SpO2: 94% 93% (P) 93% 93% Weight: Height: Physical Exam: Physical Exam Constitutional: She appears well-developed and well-nourished. No distress. HENT: Head: Normocephalic and atraumatic. Eyes: EOM are normal. Neck: Normal range of motion. Cardiovascular: Normal rate and regular rhythm. No murmur heard. Pulmonary/Chest: Effort normal. No respiratory distress. She has decreased breath sounds. She has no wheezes. She has no rales. Abdominal: Soft. She exhibits no distension. There is no tenderness. Musculoskeletal: Normal range of motion. She exhibits no edema. Neurological: She is alert. Skin: Skin is warm and dry. No erythema. Psychiatric: She has a normal mood and affect. Her behavior is normal. Intake/Output 24H Total: Intake/Output Summary (Last 24 hours) at 05/21/2019 1425 Last data filed at 05/20/2019 2145 Gross per 24 hour Intake -- Output 600 ml Net -600 ml Medication ??? amlodipine 5 mg Oral Daily ??? doxycycline hyclate 100 mg Oral 2 times per day ??? enoxaparin 40 mg Subcutaneous Q24H ??? ipratropium-albuterol 3 mL Nebulization Q4H ??? methylPREDNISolone 40 mg Intravenous Q8H ??? pantoprazole EC 40 mg Oral Daily PRN Meds: acetaminophen, albuterol, docusate sodium, hydrocodone-acetaminophen, morphine, naLOXone,ondansetron, polyethylene glycol Labs: noted X-Ray CTA chest 1. ??Extensive upper lobe emphysematous changes. 2. ??Extensive bronchiectasis. 3. ??Low-density material in the bronchial lumens both lower lobes may represent inspissated mucus or other secretions. ??Peripheral consolidation probably scarring or atelectasis. ??Likely underlying fibrosis. 4. ??RIGHT BREAST MASS. ??INCIDENTAL. ??FURTHER EVALUATION RECOMMENDED. 5. ??No CT evidence of pulmonary embolism. ?? CXR 1. Lung changes which can be seen with COPD. 2. Potentially acute on chronic lower lobe interstitial process; findings may represent a bronchitis superimposed on underlying chronic interstitial lung disease; no confluent consolidation. Follow-up HR CT chest May be of interest.. Assessment/Plan: COPD exacerbation ([facility]) COPD exacerbation Recently discharged for same Supplement O2 IV steroids-wean as tolerated PRN and scheduled nebs Incentive spirometer Hold Symbicort with above treatment (has not been taking this at home anyway due to pharmacy issues) Doxycycline Weaning down steroids 05/21 ?? SIRS Present in ER with tachycardia, tachypnea, leukocytosis Suspect from steroids, stress reaction/COPD exacerbation PCT only 0.08- patient does NOT have sepsis ?? Elevated lactate 2.5 2/2 albuterol This is not sepsis ?? Chronic hypoxic respiratory failure On 2 L at rest, 4L with exertion at home Supplement O2, wean as tolerated? Hypertension Continue amlodipine and monitor ?? History of peptic ulcer disease Also Che-Wang tear No acute issues Cont home PPI ?? Breast mass Incidental finding on imaging Follow-up with PCP if patient wishes Advanced care plan Son is POA. Wishes to be DNR ?? Prophylaxis Lovenox, diet, IS, PT ?? Pt requests SNF placement- will consult SS, patient does not qualify at this time. Per notes patient's son will take her home if assisted living is not yet arranged SELINA GUZMÁN MD 05/21/2019 2:25 PM ETING RESEARCH COORDINATOR * MARIA LUISA Dai - 05/21/2019 12:19 PM CST 05/21/19 1135 Therapy Visit Reason for admission COPD EXACERBATION Comorbidities Relevant to OT COPD, Acute respiratory failure, Dizziness, Duodenitis without hemorrhage, Che-Wang tear, Pharyngoesophageal dysphagia, sciatica of L side Ordering Provider Edu Verified Two Patient Identifiers Yes Patient consents to therapy Yes Acute Inpatient OT Time Calculation OT Start Time 1135 OT Stop Time 1200 OT Time Calculation (min) 25 min Precautions Precautions Yes/No Yes General Precautions Bed Alarm;Chair Alarm;Fall Risk;Monitor Vitals;Supplemental oxygen Instructed on Precautions Yes;Verbalizes understanding Subjective Subjective ROOM 423. PT. AGREEABLE TO THER. SESSION Pain Pain Patient does not offer or c/o pain Activity Tolerance Endurance Tolerates 20 - 30 min activity with rests Activity Tolerance Comments FAIR TOLERANCE FOR THER. SESSION; PT. O2 SATS MONITORED >90% THROUGHOUT THER. SESSION Cognition Overall Cognitive Status WFL Bed Mobility Supine to Sit Independent Sit to Supine Independent Functional Transfers Sit to Stand Modified independence (WW) Toilet Transfers Supervision;Modified Independent (WW; ST. TOILET) Interventions R Shoulder Strengthening Free Weights;Flexion;Extension;Sitting L Shoulder Strengthening Free Weights;Flexion;Extension;Sitting R Elbow Strengthening Free Weights;Flexion;Extension;Sitting L Elbow Strengthening Free Weights;Flexion;Extension;Sitting R Forearm AROM Supination;Pronation;Sitting L Forearm AROM Supination;Pronation;Sitting R Wrist AROM Flexion;Extension;Sitting L Wrist AROM Flexion;Extension;Sitting RUE Comment 1# FREE WEIGHT; X10 REPS LUE Comment 1# FREE WEIGHT; X10 REPS Other (Comment) PT. COMPLETED JEREMIE UE THER. EX SITTING EOB TO INCREASE UE STRENGTH AND ENDURANCE/ACTIVITY TOLERANCE FOR IMPROVED ADL INDEP.; MIN CUES FOR PROPER FORM/TECH; REST BREAKS/CUES FOR BREATHING TECH Modalities Patient/Family Training PT. ISSUED HANDOUT/EDUCATED ON ENERGY CONSERVATION TECH'S TO INCREASE INDEP./SAFETY WITH FUNC. ADL'S/IADL'S/XFER'S; PT. VERBALIZED GOOD UNDERSTANDING/RECEPTIVENESS Patient/Family Training Self Cares X Transfer Training X Exercise Program X Other (Comment) ONE TO ONE/VERBAL/HANDS ON/WRITTEN; RECEPTIVE TO EDU. AND THER. TASKS COMPLETED Recommendation OT Recommendation OT during Hospitalization OT Equipment Recommended Tub/shower chair with back;Grab bars in shower Plan OT Treatment/Intervention Self-care training;Therapeutic exercises;Therapeutic activities;Manual therapy;Patient/family training;Functional activity;Safety Progress Slow progress, decreased activity tolerance OT Frequency 3 times/week OT plan for next session ADL'S/XFER'S/STRENGTH AND ACTIVITY TOLERANCE If this is the last treatment note, it will serve as the discharge summary Yes End of Session Safety End of Session Safety Bed alarm set/activated;Call light within reach ETING RESEARCH COORDINATOR * Kari Dumont RN - 05/21/2019 10:47 AM CST Patient has a history of chronic hypoxic respiratory failure. She requires home oxygen 2 LPM at rest and 4 LPM with exertion. Patient was recently discharged 05/16/2019 with a new diagnosis of COPD. She was readmitted on 05/19/2019 with increasing SOB. Patient will require a home nebulizer when she discharges from the hospital. Cosigned by Selina Guzmán MD at 05/21/2019 2:25 PM MARKETING RESEARCH COORDINATOR ETING RESEARCH COORDINATOR ETING RESEARCH COORDINATOR * ELSIE Baldwin - 05/20/2019 4:18 PM CST 05/20/19 1400 Therapy Visit OT Received On 05/20/19 Treatment Day 1 Reason for admission COPD EXACERBATION Comorbidities Relevant to OT COPD, Acute respiratory failure, Dizziness, Duodenitis without hemorrhage, Che-Wang tear, Pharyngoesophageal dysphagia, sciatica of L side Ordering Provider Edu Verified Two Patient Identifiers Yes Patient consents to therapy Yes Acute Inpatient OT Time Calculation OT Start Time 1411 OT Stop Time 1431 OT Time Calculation (min) 20 min Precautions Precautions Yes/No Yes General Precautions Bed Alarm;Chair Alarm;Fall Risk;Monitor Vitals;Supplemental oxygen Instructed on Precautions Yes;Verbalizes understanding Other PT ON 4LO2NC Subjective Subjective RM A423: Pt sitting up in bed, agreeable to OT divya. Reports she is feeling very weak and is fearful of going home alone. Home Living Type of Home Apartment (2nd floor w/o elevator access) Home Layout One level (HAS 15 STEPS WITH 2 RAILS TO ACCESS HER APT. ) Bathroom Shower/Tub Tub/shower unit Bathroom Toilet Standard Toilet Home Equipment Straight cane Prior Function Level of [place] Independent with ADLs;Independent with functional transfers;Independent with ambulation;Independent with homemaking with ambulation Device used at baseline None;Straight cane Fall History No Lives With Alone ADL Assistance Independent Homemaking Assistance Independent Pain Pain No Activity Tolerance Endurance Tolerates < 10 min activity with changes in vital signs Activity Tolerance Comments Pt on 4L O2; SPO2 93% at rest and dropped to 87% following in-room mobility; SPO2 improved to 92% after ~1.5 minutes PLB Vision - Basic Assessment Current Vision Wears glasses Cognition Overall Cognitive Status WFL Arousal/Alertness Appropriate responses to stimuli Orientation Level Oriented X4 Following Commands Follows all commands and directions without difficulty Safety Judgment Good awareness of safety precautions Deficits Fully aware of deficits Overall Extremity Assessment Upper Extremity AROM WFL all joints all planes; strength 4/5 grossly and bilaterally Hand Function Hand Dominance Right Gross Grasp Functional Coordination Functional Sensation Additional Comments Pt reports occasional numbness within B feet ADL Eating/Feeding Assistance Modified independent (Device) Grooming Assistance Stand by;Standing at sink Grooming Deficit Increased time to complete;Supervision/safety;Setup Grooming Comment hand hygiene standing at sink with close guard for safety Bathing Assistance Minimal;Alternating sit/stand Bathing Deficit Increased time to complete;Supervision/safety;Steadying;Setup Bathing Comment simulated; min A for steadying/balance during standing components UE Dressing Assistance Modified independent (Device);Sitting at EOB LE Dressing Assistance Stand by;Alternating sit/stand LE Dressing Deficit Increased time to complete;Supervision/safety;Setup Toileting Assistance Stand by Toileting Deficit Supervision/safety;Increased time to complete;Setup Bed Mobility Supine to Sit Independent Sit to Supine Independent Functional Transfers Sit to Stand Modified independence Toilet Transfers Supervision Functional Mobility Pt completed short distance functional mobility throughout bedroom and bathroomusing WW for support with SBA for safety and O2 line mgmt Balance Sitting - Static Independent Sitting - Dynamic Independent Standing - Static Modified independence Standing - Dynamic SBA Other (Comment) standing balance with support of the WW Assessment Occupational Profile and History Complexity Moderate (Expanded) Performance Skills Deficits Bathing/showering;Dressing;Functional mobility;Home establishment and management;Toileting Performance Deficit Level Moderate (3-5 deficits) Clinical Decision Making Moderate (min/mod modifications) Complexity Level of Evaluation Moderate Prognosis Good Patient/Family Training Self Cares x Transfer Training x DME Education x Precautions x Other (Comment) Pt receptive to tasks presented Recommendation OT Recommendation OT during Hospitalization OT Equipment Recommended Tub/shower chair with back;Grab bars in shower Plan OT Treatment/Intervention Self-care training;Therapeutic exercises;Therapeutic activities;Manual therapy;Patient/family training;Functional activity;Safety OT Frequency 3 times/week OT plan for next session ADLs, Transfers, ther ex If this is the last treatment note, it will serve as the discharge summary Yes End of Session Safety End of Session Safety Bed alarm set/activated;Call light within reach ELSIE BALDWIN ETING RESEARCH COORDINATOR * eSlina Guzmán MD - 05/20/2019 4:00 PM CST Hospitalist Daily Progress Note Subjective Patient seen and examined, states her family is looking at assisted living for her to go to at discharge, she has unable to go back home independently. No acute events overnight, feeling better Objective Filed Vitals: 05/20/19 0421 05/20/19 0658 05/20/19 0843 05/20/19 1145 BP: 137/57 140/58 134/47 Pulse: 111 115 100 Resp: 20 Temp: 98.6 ??F (37 ??C) 98.6 ??F (37 ??C) 98.7 ??F (37.1 ??C) TempSrc: Oral Oral Oral SpO2: 97% 92% 92% 92% Weight: 52.6 kg (115 lb 15.4 oz) Height: Physical Exam: Physical Exam Constitutional: She appears well-developed and well-nourished. No distress. HENT: Head: Normocephalic and atraumatic. Eyes: EOM are normal. Neck: Normal range of motion. Cardiovascular: Normal rate and regular rhythm. No murmur heard. Pulmonary/Chest: Effort normal. No respiratory distress. She has no wheezes. She has no rales. Abdominal: Soft. She exhibits no distension. There is no tenderness. Musculoskeletal: Normal range of motion. She exhibits no edema. Neurological: She is alert. Skin: Skin is warm and dry. No erythema. Psychiatric: She has a normal mood and affect. Her behavior is normal. Intake/Output 24H Total: Intake/Output Summary (Last 24 hours) at 05/20/2019 1600 Last data filed at 05/20/2019 1258 Gross per 24 hour Intake 360 ml Output 400 ml Net -40 ml Medication ??? amlodipine 5 mg Oral Daily ??? doxycycline hyclate 100 mg Oral 2 times per day ??? enoxaparin 40 mg Subcutaneous Q24H ??? ipratropium-albuterol 3 mL Nebulization Q4H ??? methylPREDNISolone 62.5 mg Intravenous 4 times per day ??? pantoprazole EC 40 mg Oral Daily PRN Meds: acetaminophen, albuterol, docusate sodium, hydrocodone-acetaminophen, morphine, naLOXone,ondansetron, polyethylene glycol Labs: noted X-Ray CTA chest 1. ??Extensive upper lobe emphysematous changes. 2. ??Extensive bronchiectasis. 3. ??Low-density material in the bronchial lumens both lower lobes may represent inspissated mucus or other secretions. ??Peripheral consolidation probably scarring or atelectasis. ??Likely underlying fibrosis. 4. ??RIGHT BREAST MASS. ??INCIDENTAL. ??FURTHER EVALUATION RECOMMENDED. 5. ??No CT evidence of pulmonary embolism. ?? CXR 1. Lung changes which can be seen with COPD. 2. Potentially acute on chronic lower lobe interstitial process; findings may represent a bronchitis superimposed on underlying chronic interstitial lung disease; no confluent consolidation. Follow-up HR CT chest May be of interest.. Assessment/Plan: COPD exacerbation (CMS/HCC) COPD exacerbation Recently discharged for same Supplement O2 IV steroids-wean as tolerated PRN and scheduled nebs Incentive spirometer Hold Symbicort with above treatment (has not been taking this at home anyway due to pharmacy issues) doxycycline ?? SIRS Present in ER with tachycardia, tachypnea, leukocytosis Suspect from steroids, stress reaction/COPD exacerbation PCT only 0.08- patient does NOT have sepsis ?? Elevated lactate 2.5 2/2 albuterol This is not sepsis ?? Chronic hypoxic respiratory failure On 2 L at rest, 4L with exertion at home Supplement O2, wean as tolerated? Hypertension Continue amlodipine and monitor ?? History of peptic ulcer disease Also Che-Wang tear No acute issues Cont home PPI ?? Breast mass Incidental finding on imaging Follow-up with PCP if patient wishes Advanced care plan Son is POA. Wishes to be DNR ?? Prophylaxis Lovenox, diet, IS, PT ?? Pt requests SNF placement- will consult SS. Per notes patient's son will take her home if assisted living is not yet arranged SELINA GUZMÁN MD 05/20/2019 4:00 PM ETING RESEARCH COORDINATOR * Kain Rand RN - 05/20/2019 3:51 PM CST Patient's son Fabián at bedside, Darlyn with [employer] notified to come speak with patient and son regarding Medicaid application. Patient states she feels unsafe to return home alone at discharge. Patient'sson states patient can come stay with him at discharge. ETING RESEARCH COORDINATOR * Carey Martin RN - 05/20/2019 1:25 PM CST Patient reports that she feels better after working with therapy and while sitting in the recliner.Encouraged patient to sit in the recliner for the rest of the day, as long as she is comfortable. She verbalized understanding. ETING RESEARCH COORDINATOR * Mary Ortiz, ARIANE - 05/20/2019 12:50 PM CST 05/20/19 1200 Therapy Visit Ordering Provider ANDRES THAKKAR Received On 05/20/19 Subjective ROOM A423: PT IN BED UPON THIS THERAPIST ENTRANCE TO ROOM. PT RECEPTVE TO P.T. SERVICES.VOICED CONCERNS OVER BEING ABLE TO MANAGE AT HOME SAFELY BY HERSELF. Reason for admission COPD EXACERBATION Relevant Comorbidities/ Personal Factors to PT COPD, PNEUMONIA, GI BLEED, HTN, CHE WANG TEAR Verified Two Patient Identifiers Yes Patient consents to therapy Yes Acute Inpatient PT Time Calculation PT Start Time 1204 PT Stop Time 1249 PT Time Calculation (min) 45 min PT Therapy Interruption (min) 0 Precautions Precautions Yes/No Yes General Precautions Bed Alarm;Chair Alarm;Fall Risk;Monitor Vitals;Supplemental oxygen Instructed on Precautions Yes;Verbalizes understanding Other PT ON 4LO2NC Home Living Type of Home Apartment (SECOND FLOOR APT. WITH NO ELEVATOR ACCESS) Home Layout One level (HAS 15 STEPS WITH 2 RAILS TO ACCESS HER APT. ) Home Equipment Straight cane Additional Comments PT STATES SHE HAS A FRIEND THAT CAN GIVE HER A W/W WITH A SEAT ON IT IF SHE NEEDS IT. Prior Function Level of [place] Independent with ADLs;Independent with functional transfers;Independent with ambulation;Independent with homemaking with ambulation Device used at baseline None;Straight cane Baseline Ambulation Distance/Assistance PT REPORTS UP UNTIL THE LAST 2-3 WEEKS SHE WAS ABLE TO GAITFOR LENGTH DISTANCES IN THE COMMUNITY. Fall History No (STATES HER LAST FALL WAS OVER 4 YEARS AGO ) Lives With Alone Pain Pain No Activity Tolerance Endurance Tolerates < 10 min activity with changes in vital signs Activity Tolerance Comments PT ON 4LO2NC WARRANTED STANDING REST PAUSES AND INSTRUCTION TO BREATHING TECHNIQUE WITH SPO2 AT 89-93%. HR AT REST 103 BPM AND WITH GAIT ELEVATED TO 122 BPM WARRANTING REST PERIODS. Cognition Overall Cognitive Status WFL Orientation Level Oriented X4 Following Commands Follows all commands and directions without difficulty Overall Extremity Assessment Upper Extremity AROM WFL Lower Extremity AROM WFL Lower Extremity Comment PT THIN WITH MM ATROPHY Bed Mobility Supine to Sit Independent Sit to Supine Independent TRANSFERS Sit to Stand Modified independence Gait Gait Assistance SBA/supervision Assistive Device 2 Wheeled walker Ambulation Distance (Feet) 110' WITH 2 REST PERIODS DUE TO SOB Other (Comment) DECREASED GABRIEL NOTED BUT STEADY GAIT Stairs Other (Comment) PT NOT ABLE TO TOLERATE. PT HAS 15 STEPS WITH 2 RAILS TO ACCESS HER SECOND FLOOR APT. Balance Sitting - Static Independent Sitting - Dynamic Independent Standing - Static Modified independence Standing - Dynamic SBA Patient/Family Training Bed Mobility X Transfer Training XX Precautions X Assessment Personal Factors/Comorbidities Impacting Care 3-4 personal factors/comorbidities Examination of Body Systems High (at least 4 Elements) Objectives of Body Systems Impaired ambulation;Impaired balance;Impaired stair negotiation;Decreased endurance Clinical Presentation of Patient Evolving and changing characteristics Complexity Level of Evaluation Moderate Prognosis Good PT Assess/Eval Other (Comment) DISCUSSED POTENTIAL DC NEEDS WITH PT. PT VERBALIZED THAT SHE DOES NOT FEEL CONFIDENT TO RETURN TO HER SECOND FLOOR APT. ALONE. PT'S GRANDDAUGTHER IS LOOKING INTO ALEX SETTINGS FOR THE PT. CASE MANAGEMENT REPORTS PT HAS THE OPTION OF MOVING IN WITH HER SON IF NEEDED. Recommendation PT Recommendation PT during Hospitalization (POSSIBLE TRANSITION TO ALEX OR WITH FAMILY ) PT Equipment Recommended (PT STATES HER FRIEND WILL GIVE HER A W/W IF NEEDED) Plan PT Treatments/Interventions Gait Training;Therapeutic Exercises;Therapeutic Activities;Neuromuscular re-education;Patient/family training PT Frequency Daily;BID;6 times/week PT plan for next session PROGRESS GAIT AND STANDING TOLERANCE WITH CLOSE MONITOR OF PT RESPONSE TO ACTIVITY If this is the last treatment note,it will serve as the discharge summary Yes End of Session Safety End of Session Safety Chair alarm set/activated;Call light within reach;Nursing aware of session;Transfer status education ETING RESEARCH COORDINATOR * Kain Rand RN - 05/20/2019 10:02 AM CST 05/20/19 1000 Referral Data Referral Reason Discharge Planning Source of Information Patient Patient Information Primary Caregiver Self Support System Immediate family Baseline ADL's Functional Status Independent Living Arrangements Children Type of Residence Private residence Ambulation Assistance Yes Ambulation Independent Active DME Cane (HOme oxygen at 2L through [employer]) Bathing/Grooming Assistance No Dressing Assistance No Behavior Oriented;Cooperative Communication Talks;Understands speaking;Understands [place] Anticipated Discharge Needs Change in Living Arrangements No In-Home Care or Equipment No Vocational and/or Role Loss No Inability to Complete ADL's No Anticipated DC Plan Living Arrangements Children Support Systems Children;Family members Type of Residence Private residence Assistance Needed No Patient expects to be discharged to: Home NCM performed bedside interview: Support: Son Fabián, granddaughter Shannan Home: Patient lives alone in a second floor apartment. Patient states she has to take the steps to enter. Patient also states her granddaughter is arranging for her to move to an [facility] in the near future. Ambulation: Reports independent prior to admission, cane PRN DME products: Cane, 2L oxygen through [employer] Medical Devices: None ADLs: Reports independent prior to admission. Transport Home:Family Skin/Bladder/Bowel: No deficits reported. A/O: Answers questions with intent and clarity. Communication: No deficits noted or reported. Home Health: None Occupation: None Pharmacy:[facility] pharmacy in [place] [employer] Concerns: Patient requesting information regarding Medicaid application. Darlyn with [employer] per email to see patient. PCP/Insurance Plan: Verified as accurate in the chart. Patient provided with a PCP list, states herfamily was looking in to finding her a new PCP after last admission. Discharge needs: No needs identified at this time. NCM will provide discharge planning as needed, and will re-evaluate based on recommendations and treatment course. ETING RESEARCH COORDINATOR ETING RESEARCH COORDINATOR ETING RESEARCH COORDINATOR * Kianna Tam - 05/20/2019 9:11 AM CST 05/20/19 0830 Advance Directives (For Healthcare) Advance Directive Patient has advance directive, copy in chart Type of Healthcare Directive Health care treatment directive Information Provided on Healthcare Directives Yes Healthcare Agent's Name Fabián Lake Healthcare Agent's DNR/POLST Yes, document on chart Warehouse Person assisted patient in completing a POLST form. She chose DNR. Form is signed and in her chart. Warehouse Person to be available as needed. ETING RESEARCH COORDINATOR * Gisela Vazquez RN - 05/20/2019 5:18 AM CST Problem: Reduced risk for falls/injury Goal: Reduced Risk for Falls/Injury Outcome: Progressing Note: Fall precautions in place, bed alarm on, call light within reach. ETING RESEARCH COORDINATOR documented in this encounter H&P Notes * Jigna Campos MD - 05/19/2019 7:15 PM CST Hospitalist History and Physical Patient: Carleen Lake Date: 05/19/2019 female, 83-year-old Admit Date: 05/19/2019 Attending: Jigna Campos MD REASON FOR ADMISSION: SOB HISTORY OF PRESENT ILLNESS: Carleen Lake is a 83-year-old female With past medical history significant for falls, GERD without esophagitis, HTN and COPD complaining of SOB as of this morning. Patient was discharged on 05/16/2019 with a new diagnosis of COPD. Since leaving, she has not been able to breath. Increasing her O2 levels above her usual 2L did not give any relief. Patient awoke this morning feeling more SOB andwas escorted to the ED via ambulance. She has not had her symbicort or any nebulizer treatments dueto issues with her pharmacy. She has been using her albuterol inhaler 4 times daily and taking her prednisone pills. She has felt short winded with on and off chills and a cough productive of some milky white sputum.Patient reports rare chest discomfort. She does have loss of appetite. Patient only eats a few small cookies a day with her medication. She denies fever, N/V/D, dysuria, hematuria, and hematochezia. Patient was given IV Solu-Medrol and nebulized treatments by EMS. Allergy No Known Allergies Medication list (Not in a hospital admission) No current facility-administered medications on file prior to encounter. Current Outpatient Medications on File Prior to Encounter Medication Sig Dispense Refill ??? amlodipine 5 MG tablet Take 1 tablet (5 mg total) by mouth daily. 30 tablet 0 ??? budesonide-formoterol 160-4.5 MCG/ACT inhaler Inhale 2 puffs into the lungs 2 (two) times daily. 1 Inhaler 0 ??? pantoprazole EC 40 MG tablet Take 1 tablet (40 mg total) by mouth daily. 30 tablet 0 ??? predniSONE 10 mg tablet Take 4 tablets by mouth daily for 2 days, then 3 tablets by mouth dailyfor 3 days, then 2 tablets by mouth for 3 days, then 1 tablet by mouth for 3 days then stop 26 tablet 0 ??? albuterol sulfate HFA 108 (90 Base) MCG/ACT inhaler Inhale 2 puffs into the lungs 4 (four) times daily. 1 Inhaler 0 Past Medical History Past Medical History: Diagnosis Date ??? COPD (chronic obstructive pulmonary disease) ([facility]) ??? Fall ??? Gastroesophageal reflux disease without esophagitis 05/14/2019 Hx of GI bleed ??? Hypertension ??? Vaginal delivery x 3 Past Surgical History: Procedure Laterality Date ??? NONE Social History Social History Socioeconomic History ??? Marital status: Spouse name: Not on file ??? Number of children: Not on file ??? Years of education: Not on file ??? Highest education level: Not on file Occupational History ??? Not on file Social Needs ??? Financial resource strain: Not on file ??? Food insecurity: Worry: Not on file Inability: Not on file ??? Transportation needs: Medical: Not on file Non-medical: Not on file Tobacco Use ??? Smoking status: Former Smoker Packs/day: 1.00 Years: 65.00 Pack years: 65.00 Types: Cigarettes ??? Smokeless tobacco: Never Used Substance and Sexual Activity ??? Alcohol use: Not Currently ??? Drug use: Never ??? Sexual activity: Not on file Lifestyle ??? Physical activity: Days per week: Not on file Minutes per session: Not on file ??? Stress: Not on file Relationships ??? Social connections: Talks on phone: Not on file Gets together: Not on file Attends jewish service: Not on file Active member of club or organization: Not on file Attends meetings of clubs or organizations: Not on file Relationship status: Not on file ??? Intimate partner violence: Fear of current or ex partner: Not on file Emotionally abused: Not on file Physically abused: Not on file Forced sexual activity: Not on file Other Topics Concern ??? Not on file Social History Narrative ??? Not on file Family History Family History Family history unknown: Yes REVIEW OF SYSTEMS: A 14 point review of systems was taken and pertinent positive as per HPI. Rest of review of systemsis negative. PHYSICAL EXAMINATION: Vital 24 Hour Range Most Recent Value Temperature Temp Min: 98.3 ??F (36.8 ??C) Max: 98.6 ??F (37 ??C) 98.6 ??F (37 ??C) Pulse Pulse Min: 108 Max: 121 110 Respiratory Resp Min: 19 Max: 24 20 Blood Pressure BP Min: 126/60 Max: 142/50 142/50 Pulse Oximetry SpO2 Min: 91 % Max: 97 % 92 % O2 O2 Flow Rate (L/min) Av.3 L/min Min: 4 L/min Min taken time: 05/19/192014 Max: 5 L/min Max taken time: 05/19/19 2228 Vital Most Recent Value First Value Weight 52 kg (114 lb 10.2 oz) Weight: 52 kg (114 lb 10.2 oz) Height 5' 5 (165.1 cm) Height: 5' 5 (165.1 cm) BMI 19.1 N/A Physical Exam: -GENERAL: ill appearing.mildly Increased work of breathing on NC -EYES: Extraocular movements intact -ENT: External ears and nose unremarkable. Mucous membranes moist -LUNG: mildly labored. Diminished in all michel but clear -CVS: mildly tachy but regular, S1 and S2 normal, No murmurs, -ABDOMEN: Positive bowel sounds, soft, nondistended, Nontender -EXT: no lower Ext edema. -NEURO: Alert, awake, oriented x3, No gross neuro deficit -PSYCH: Alert and oriented ??3, pleasant -SKIN: Skin color, texture, turgor normal. No rashes or lesions Labs: Recent Labs Lab 05/13/19 0548 05/14/19 0944 05/15/19 0901 05/16/19 0556 05/19/19 1535 NA 139 140 139 139 138 K 4.2 3.5 3.5 3.6 3.7 CL 109* 107 105 105 104 CO2 26.4 27.6 29.1 30.7 28.5 AGAP 3.6* 5.4 4.9* 3.3* 5.5 BUN 13 17 17 18 20* CR 0.61 0.78 0.83 0.68 0.71 BUNCREATININ 21.3 21.7 20.5 26.6* 28.2* GFRNON 85* 71* 66* 82* 80* GFR >90 83* 77* >90 >90 GLU 143* 155* 205* 81 198* CA 9.3 9.2 8.8 8.5 8.6 MAGNESIUM 2.3 -- -- -- -- Recent Labs Lab 05/13/19 0548 05/14/19 0944 05/15/19 0901 05/16/19 0556 05/19/19 1535 WBC 10.1 19.8* 17.4* 14.8* 20.5* RBC 4.07* 4.33 4.40 4.26 4.53 HGB 12.9 13.4 13.4 13.0 13.9 HCT 40.0 40.3 41.4 40.4 42.4 MCV 98.3 93.1 94.1* 94.8 93.6 MCH 31.7* 30.9 30.5 30.5 30.7 MCHC 32.3 33.3 32.4 32.2 32.8 PLT 266 386 385 346 327 RDW 13.8 13.4 13.5 13.6 13.4 MPV 10.7 8.5* 8.9* 8.8* 9.1* Recent Labs Lab 05/13/19 0548 AST 34 ALT 58* Recent Labs Lab 05/13/19 0548 INR 1.1 Invalid input(s): ABG arterial blood gases Recent Labs Lab 05/19/19 1535 TROP <0.015 No results for input(s): PH, PCO2, PO2, [id number], BICARBWB, BASEDEFICIT, BASEEXCESS in the [id number] hours. Imagining & Other Studies Results for orders placed or performed during the hospital encounter of 05/19/19 ECG 12 lead Narrative [facility] Test Date: 2019-05-19 Pat Name: CARLEEN LAKE Department: Room: A423 Gender: Female Refractory Mixer: RICHARD : 1935 Requested By: ELIF DOZIER Order Number: [id number] Reading MD: Jefe Perez Measurements Intervals [place] Rate: 118 P: 80 NC: 134 QRS: 60 QRSD: 80 T: 51 QT: 302 QTc: 424 Interpretive Statements SINUS TACHYCARDIA POSSIBLE LEFT ATRIAL ENLARGEMENT ABNORMAL RHYTHM ECG Compared to ECG 05/12/2019 11:12:00 No significant changes No ischemic changes Pepe Marquez CRITICAL ALERT ISSUED ON 05-19-2019 15:33:37 ETING RESEARCH COORDINATOR CTA chest 1. ??Extensive upper lobe emphysematous changes. 2. ??Extensive bronchiectasis. 3. ??Low-density material in the bronchial lumens both lower lobes may represent inspissated mucus or other secretions. ??Peripheral consolidation probably scarring or atelectasis. ??Likely underlying fibrosis. ?? 4. ??RIGHT BREAST MASS. ??INCIDENTAL. ??FURTHER EVALUATION RECOMMENDED. ?? 5. ??No CT evidence of pulmonary embolism. CXR 1. Lung changes which can be seen with COPD. 2. Potentially acute on chronic lower lobe interstitial process; findings may represent a bronchitis superimposed on underlying chronic interstitial lung disease; no confluent consolidation. Follow-up HR CT chest May be of interest. ?? Assessment & Plan COPD exacerbation Recently discharged for same Supplement O2 IV steroids-wean as tolerated PRN and scheduled nebs Incentive spirometer Hold Symbicort with above treatment (has not been taking this at home anyway due to pharmacy issues) doxycycline SIRS Present in ER with tachycardia, tachypnea, leukocytosis Suspect from steroids, stress reaction/COPD exacerbation PCT only 0.08- patient does NOT have sepsis Elevated lactate 2.5 2/2 albuterol This is not sepsis Chronic hypoxic respiratory failure On 2 L at rest, 4L with exertion at home Supplement O2 Hypertension Continue amlodipine and monitor History of peptic ulcer disease Also Che-Wang tear No acute issues Cont home PPI Advanced care plan Son is POA. Wishes to be DNR Prophylaxis Lovenox, diet, IS, PT Pt requests SNF placement- will consult SS I have seen and examined the patient independently and anticipate patient will require a 3-4 day stay. JIGNA CAMPOS MD 05/19/2019 11:25 PM ETING RESEARCH COORDINATOR documented in this encounter Consult Notes * Shayy Josue, RD - 05/20/2019 11:06 AM CSTAssociated Order(s): IP CONSULT TO NUTRITION SERVICES A: PT SEEN FOR CONSULT FOR POOR APPETITE AND MST SCORE 3 ( 14-23# WEIGHT LOSS WITH DECREASED APPETITE). PT REPORTS NORMAL WEIGHT WAS 127# ~ 1.5 MONTHS AGO. PRESENT WEIGHT REFLECTS 9% WEIGHT LOSS IN LAST 1.5 MONTHS BRINGING WEIGHT AT 92% IBW. PT STATES ATE VERY LITTLE FOR LAST 3 DAYS . DID EAT ONE BISCUIT AT BREAKFAST TODAY. STATES TAKES CARNATION INSTANT BREAKFAST AT HOME DAILY. AGREED TO TRY MIGHTY SHAKES AND SNACKS. INTAKE THIS AM: 50% AT BREAKFAST. EST. CALORIE NEEDS: [id number] GEORGIE([id number]) - + 500 GEORGIE = [phone] GEORGIE TO SUPPORT DESIRED WEIGHT GAIN. EST. PROTEIN NEEDS: 53-64 GM PROTEIN ( 1-1.2 GM PRO/KG) REVIEWED LABS AND MEDICATIONS. NOTED ELEVATED BLOOD SUGARS WITH NO HX OF DIABETES, SUSPECT 2/2 TO PREDNISONE. D: PES=UNINTENTIONAL WEIGHT LOSS RT INADEQUATE ORAL INTAKE AEB REPORTED 9% WEIGHT LOSS IN LAST 1.5 MONTHS. I: GOALS: RECOMMEND CONTINUING WITH REGULAR DIET. WILL OFFER MIGHTY SHAKES WITH MEALS AND BETWEEN MEAL SNACKS BID. M/E: PT AT HIGH NUTRITION RISK. F/U 05/23/19. GOALS; TAKING AT LEAST ONE SHAKE AND ONE SNACKS DAILY EACH, INTAKE > 60%. ETING RESEARCH COORDINATOR documented in this encounter Nursing Notes * Indu Bermudez RN - 05/23/2019 5:30 PM CST [facility] INDU BERMUDEZ RN ETING RESEARCH COORDINATOR * Carey Martin RN - 05/22/2019 5:59 PM CST Patient complaining of feeling sick this afternoon. She reports that she has trouble eating because she is afraid what she eats will not stay down. Zofran given, and patient reported that she felt less sick. She was able to eat chicken broth at dinner. Encouraged patient to request zofran as needed, since it might help her eat meals. She verbalized understanding. Patient also used throat spray and verbalized some relief with it. ETING RESEARCH COORDINATOR documented in this encounter ED Notes * Yani Cortés RN - 05/19/2019 3:39 PM CST Provider notified of oxygen level at 91% on 4L. Provider said he is okay with oxygen levels at thistime. Will continue to monitor. ETING RESEARCH COORDINATOR ETING RESEARCH COORDINATOR * Elif Dozier MD - 05/19/2019 3:30 PM CST Chief Complaint Chief Complaint Patient presents with ??? 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 Pt on 2 L of home O2. Upon ems arrival, patient was sating at 90% and was tripoding and having difficulty speaking in full sentences due to SOB. Pt was discharged from here last week after having a new diagnosis of COPD and pneumonia. She was given two nebulizer treatments and 125 mg of solumedrol. Denies cp, cough, fever. Medical History ALLERGIES: No Known Allergies MEDICATIONS: Prior to Admission medications Medication Sig Start Date End Date Taking? Authorizing Provider amlodipine 5 MG tablet Take 1 tablet (5 mg total) by mouth daily. 05/17/19 Yes Mounika Colvin NP budesonide-formoterol 160-4.5 MCG/ACT inhaler Inhale 2 puffs into the lungs 2 (two) times daily. 05/16/19 Yes Mounika Colvin NP pantoprazole EC 40 MG tablet Take 1 tablet (40 mg total) by mouth daily. 05/17/19 Yes Mounika Colvin NP predniSONE 10 mg tablet Take 4 tablets by mouth daily for 2 days, then 3 tablets by mouth daily for3 days, then 2 tablets by mouth for 3 days, then 1 tablet by mouth for 3 days then stop 05/16/19 Yes Mounika Colvin NP albuterol sulfate HFA 108 (90 Base) MCG/ACT inhaler Inhale 2 puffs into the lungs 4 (four) times daily. 05/16/19 Mounika Colvin NP PAST MEDICAL HISTORY: Past Medical History: Diagnosis Date ??? Fall ??? Gastroesophageal reflux disease without esophagitis 05/14/2019 Hx of GI bleed ??? Vaginal delivery x 3 PAST SURGICAL HISTORY: History reviewed. No pertinent surgical history. FAMILY HISTORY: No family history on file. SOCIAL HISTORY: Social History Tobacco Use ??? Smoking status: Current Every Day Smoker Packs/day: 1.00 Types: Cigarettes ??? Smokeless tobacco: Never Used Substance Use Topics ??? Alcohol use: Not Currently ??? Drug use: Never Review of Systems Review of Systems Physical Exam Filed Vitals: 05/19/19 1532 05/19/19 1540 05/19/19 1600 05/19/19 1700 BP: Pulse: 121 115 Resp: 19 23 Temp: 98.3 ??F (36.8 ??C) TempSrc: Oral SpO2: 91% 96% 97% Weight: Height: Physical Exam Constitutional: She is oriented to person, place, and time. No distress. HENT: Head: Normocephalic. Eyes: Conjunctivae are normal. Cardiovascular: Normal rate and normal heart sounds. Pulmonary/Chest: Accessory muscle usage present. Tachypnea (mild) noted. She has decreased breath sounds (bilaterally). Abdominal: Soft. She exhibits no distension. There is no tenderness. Musculoskeletal: Mild LE edema noted Neurological: She is alert and oriented to person, place, and time. Skin: Skin is warm and dry. She is not diaphoretic. Psychiatric: She has a normal mood and affect. Nursing note and vitals reviewed. Diagnostic Studies / Procedures ELECTROCARDIOGRAMS: Results for orders placed or performed during the hospital encounter of 05/19/19 ECG 12 lead Narrative [facility] Test Date: 2019-05-19 Pat Name: CARLEEN LAKE Department: Room: Gender: Female Refractory Mixer: RICHARD : 1935 Requested By: ELIF DOZIER Order Number: [id number] Reading MD: Measurements Intervals [place] Rate: 118 P: 80 NC: 134 QRS: 60 QRSD: 80 T: 51 QT: 302 QTc: 424 Interpretive Statements SINUS TACHYCARDIA POSSIBLE LEFT ATRIAL ENLARGEMENT ABNORMAL RHYTHM ECG Compared to ECG 05/12/2019 11:12:00 No significant changes Results for orders placed or performed during the hospital encounter of 05/19/19 ECG [address] [facility] [address] [place] [address] Test Date: 2019-05-19 Pat Name: CARLEEN LAKE Department: Room: Gender: Female Refractory Mixer: RICHARD : 1935 Requested By: ELIF DOZIER Order Number: [id number] Reading MD: Measurements Intervals [place] Rate: 118 P: 80 NC: 134 QRS: 60 QRSD: 80 T: 51 QT: 302 QTc: 424 Interpretive Statements SINUS TACHYCARDIA POSSIBLE LEFT ATRIAL ENLARGEMENT ABNORMAL RHYTHM ECG Compared to ECG 05/12/2019 11:12:00 No significant changes (1528) Interpreted by Dr. Dozier Sinus tachycardia, rate of 118, no ST or T wave changes, no PVC LABORATORY STUDIES: Results for orders placed or performed during the hospital encounter of 05/19/19 CBC W/DIFF AUTOMATED Result Value Ref Range WBC 20.5 (H) 4.5 - 11.0 x10'3/uL RBC 4.53 4.20 - 5.40 x10'6/uL HGB 13.9 12.0 - 16.0 G/DL HCT 42.4 38.0 - 48.0 % MCV 93.6 80.0 - 94.0 FL MCH 30.7 27.0 - 31.0 PG MCHC 32.8 32.0 - 36.0 G/DL RDW 13.4 11.5 - 14.5 % PLT 327 130 - 400 x10'3/uL MPV 9.1 (L) 9.3 - 12.2 FL DIFFERENTIAL TYPE AUTOMATED DIFFERENTIAL NEUTROPHILS 89.7 % LYMPHOCYTES 5.2 % MONOCYTES 4.1 % EOSINOPHILS 0.0 % BASOPHILS 0.2 % IMMATURE GRANS 0.8 % ABS. NEUTROPHILS TOTAL 18.37 (H) 1.80 - 7.70 x10'3/uL ABS. LYMPHOCYTES 1.07 1.00 - 4.80 x10'3/uL ABS. MONOCYTES 0.83 0.24 - 0.86 x10'3/uL ABS. EOSINOPHILS 0.00 (L) 0.04 - 0.36 x10'3/uL ABS. BASOPHILS 0.04 0.01 - 0.08 x10'3/uL ABS. IMMATURE GRANULOCYTES 0.17 0.00 - 0.49 x10'3/uL BASIC METABOLIC PANEL Result Value Ref Range GLUCOSE 198 (H) 70 - 99 MG/DL BUN 20 (H) 7 - 18 MG/DL CREATININE 0.71 0.55 - 1.02 MG/DL SODIUM 138 136 - 145 MMOL/L POTASSIUM 3.7 3.5 - 5.1 MMOL/L CHLORIDE 104 100 - 108 MMOL/L CO2 28.5 21 - 32 MMOL/L CALCIUM 8.6 8.5 - 10.1 MG/DL ANION GAP 5.5 5 - 15 MMOL/L BUN CREATININE RATIO 28.2 (H) 6 - 26 eGFR Non-Afr. Amer. 80 (L) >90 ML/MIN/1.73 M2 eGFR Afr. Amer. >90 >90 ML/MIN/1.73 M2 TROPONIN, QUANT Result Value Ref Range TROPONIN I <0.015 <0.045 ng/mL. BNP Result Value Ref Range B TYPE NATRIURETIC PEPTIDE 46 <100 PG/ML BLOOD GAS, VENOUS, W/LACTATE Result Value Ref Range TIME TEST WAS PERFORMED: 1,645 SAMPLE TYPE VENOUS TECH CODE 135,848 pH-Venous 7.43 (H) 7.32 - 7.42 PC02 VENOUS 45.4 40 - 50 MMHG PO2 VENOUS 51.9 (H) 30 - 50 MM HG Bicarb-Venous 29.9 (H) 24 - 28 MMOL/L TCO2 31.3 25 - 40 MMOL/L VENOUS BASE EXCESS 4.7 (H) 0 - 2 MMOL/L Hemoglobin, Blood Gas 13.5 12.0 - 16.0 G/DL % O2 HEMOGLOBIN,VENOUS 85.2 >65 % Carbon Monoxide/COHB 0.6 <3 % Methemoglobin/METHB 0.5 <3 % O2 CONTENT 16.2 (H) 11.0 - 16.0 VOL% LACTIC ACID 2.5 (H) 0.0 - 2.2 MMOL/L IMAGING STUDIES XR CHEST PORTABLE Final Result by User, [id number] (05/19 1631) Examination: Chest x-ray 1 view Exam date/time: 05/19/2019 3:58 PM Reason For Exam: 83-year-old female with dyspnea. Prior diagnosis of pneumonia and COPD Comparison: Chest x-ray 05/16/2019 and 05/12/2019 Technique: Upright AP view of the chest . Findings: Cardiac size is normal. Normally positioned trachea. Calcification of the aortic arch. Hilar metastatic contours are within normal limits. Lung hyperinflation with increased AP diameter of the chest, and upper lobe vascular attenuation suggestive of COPD. There are bilateral lower lobe interstitial opacity similar to 05/16/2019 but slightly increased compared to 05/12/2019. These represent a superimposed process on underlying chronic interstitial lung changes. No confluent airspace consolidation. There is no effusion or pneumothorax. Unremarkable upper abdomen. =====IMPRESSION:===== 1. Lung changes which can be seen with COPD. 2. Potentially acute on chronic lower lobe interstitial process; findings may represent a bronchitis superimposed on underlying chronic interstitial lung disease; no confluent consolidation. Follow-up HR CT chest May be of interest. CHEST (Results Pending) ED Course / Medical Decision Making MDM Number of Diagnoses or Management Options COPD exacerbation (CMS/HCC): Diagnosis management comments: This patient presents with shortness of breath. The patient was recently diagnosed with COPD. Patient is currently taking steroids. I believe this accounts for her elevated white blood cell count. She has no evidence of pneumonia on her chest x-ray. I do not believe that she has pneumonia. The patient will be admitted for further work-up and management. I discussedcase Dr. Frank. She wants me to order a CT chest. This was done. She is going to follow-up on the results. The patient will be admitted for further management. Amount and/or Complexity of Data Reviewed Decide to obtain previous medical records or to obtain history from someone other than the patient:yes Clinical Impression COPD exacerbation (CMS/HCC) (Primary) Disposition: Admit INathaniel, acting as a scribe, am personally taking down the notes in the presence of Dr.Erik Jordy Dozier MD. Take no action on this note until reviewed and authenticated by the physician. Elif Dozier MD 05/19/19 1734 ETING RESEARCH COORDINATOR * Yani Cortés RN - 05/19/2019 3:18 PM CST Pt to ED from EMS with c/o shortness of breath that began last night, pt discharged from hospital May 16. With diagnosis of pneumonia and COPD. EMS gave 10mg albuterol and solumedrol. ETING RESEARCH COORDINATOR documented in this encounter Plan of Treatment Not on file documented as of this encounter Procedures Procedure Name Priority Date/Time Associated Diagnosis Comments BASIC METABOLIC PANEL Routine 05/23/2019 5:53 AM MARKETING RESEARCH COORDINATOR CBC W/DIFF AUTOMATED Routine 05/23/2019 5:53 AM MARKETING RESEARCH COORDINATOR BASIC METABOLIC PANEL Routine 05/21/2019 6:13 AM MARKETING RESEARCH COORDINATOR CBC W/DIFF AUTOMATED Routine 05/21/2019 6:13 AM MARKETING RESEARCH COORDINATOR BASIC METABOLIC PANEL Routine 05/20/2019 6:27 AM MARKETING RESEARCH COORDINATOR CBC W/DIFF AUTOMATED Routine 05/20/2019 6:27 AM MARKETING RESEARCH COORDINATOR CTA CHEST STAT 05/19/2019 6:09 PM MARKETING RESEARCH COORDINATOR BLOOD GAS, VENOUS, W/LACTATE STAT 05/19/2019 4:42 PM MARKETING RESEARCH COORDINATOR XR CHEST PORTABLE STAT 05/19/2019 4:1 9 PM MARKETING RESEARCH COORDINATOR PROCALCITONIN (PCT) Routine 05/19/2019 3 :35 PM MARKETING RESEARCH COORDINATOR BNP STAT 05/19/2019 3:35 PM MARKETING RESEARCH COORDINATOR BASIC METABOLIC PANEL STAT 05/19/2019 3:35 PM MARKETING RESEARCH COORDINATOR CULTURE, BACTERIA, BLOOD STAT 05/19/2019 3:35 PM MARKETING RESEARCH COORDINATOR CULTURE, BACTERIA, BLOOD STAT 05/19/2019 3:35 PM MARKETING RESEARCH COORDINATOR CBC W/DIFF AUTOMATED STAT 05/19/2019 3:35 PM MARKETING RESEARCH COORDINATOR TROPONIN, QUANT STAT 05/19/2019 3:35 PM MARKETING RESEARCH COORDINATOR ECG 12-LEAD Routine 05/19/2019 3:28 PM MARKETING RESEARCH COORDINATOR documented in this encounter Results * (ABNORMAL) CBC W/DIFF AUTOMATED (05/23/2019 5:53 AM MARKETING RESEARCH COORDINATOR) [facility] WBC 18.2(H) 4.5 - 11.0 x10'3/uL 05/23/2019 6:15 AM [facility] RBC 3.93(L) 4.20 - 5.40 x10'6/uL 05/23/2019 6:15 AM [facility] HGB 12.0 12.0 - 16.0 G/DL 05/23/2019 6:15 AM [facility] HCT 37.4(L) 38.0 - 48.0 % 05/23/2019 6:15 AM [facility] MCV 95.2 81.0 - 99.0 FL 05/23/2019 6:15 AM [facility] MCH 30.5 27.0 - 31.0 PG 05/23/2019 6:15 AM [facility] MCHC 32.1 32.0 - 36.0 G/DL 05/23/2019 6:15 AM [facility] RDW 13.8 11.5 - 14.5 % 05/23/2019 6:15 AM [facility] PLT 283 130 - 400 x10'3/uL 05/23/2019 6:15 AM [facility] MPV 9.2(L) 9.3 - 12.2 FL 05/23/2019 6:15 AM [facility] DIFFERENTIAL TYPE AUTOMATED DIFFERENTIAL 05/23/2019 6:15 AM [facility] NEUTROPHILS % 86.9 % 05/23/2019 6:15 AM MARKETING RESEARCH COORDINATOR [facility] LYMPHOCYTES % 5.6 % 05/23/2019 6:15 AM [facility] MONOCYTES % 4.3 % 05/23/2019 6:15 AM [facility] EOSINOPHILS 0.0 % 05/23/2019 6:15 AM [facility] BASOPHILS 0.2 % 05/23/2019 6:15 AM [facility] IMMATURE GRANS % 3.0 % 05/23/19 20 6:15 AM [facility] ABS. NEUTROPHILS TOTAL 15.83(H) 1.80 - 7.70 x10'3/uL 05/23/2019 6:15 AM [facility] ABS. LYMPHOCYTES 1.02 1.00 - 4.80 x10'3/uL 05/23/2019 6:15 AM [facility] ABS. MONOCYTES 0.79 0.24 - 0.86 x10'3/uL 05/23/2019 6:15 AM [facility] ABS. EOSINOPHILS 0.00(L) 0.04 - 0.36 x10'3/uL 05/23/2019 6:15 AM [facility] ABS. BASOPHILS 0.04 0.01 - 0.08 x10'3/uL 05/23/2019 6:15 AM [facility] ABS. IMMATURE GRANULOCYTES 0.54(H) 0.00 - 0.49 x10'3/uL 05/23/2019 6:15 AM [facility] 05/23/2019 5:53 AM MARKETING RESEARCH COORDINATOR us Selina Guzmán MD LABORATORY Final Result [facility] [address] [place] [address], [place] [phone] * (ABNORMAL) BASIC METABOLIC PANEL (05/23/2019 5:53 AM MARKETING RESEARCH COORDINATOR) [facility] GLUCOSE 114(H) 70 - 99 MG/DL 05/23/2019 6:50 AM [facility] BUN 21(H) 7 - 18 MG/DL 05/23/2019 6:50 AM [facility] CREATININE S/P/B 0.73 0.55 - 1.02 MG/DL 05/23/2019 6:50 AM [facility] SODIUM S/P/B 138 136 - 145 MMOL/L 05/23/2019 6:50 AM [facility] POTASSIUM S/P/B 5.1 3.5 - 5.1 MMOL/L 05/23/2019 6:50 AM [facility] CHLORIDE S/P/B 103 100 - 108 MMOL/L 05/23/2019 6:50 AM [facility] CO2 31.5 21 - 32 MMOL/L 05/23/2019 6:50 AM [facility] CALCIUM S/P/B 8.9 8.5 - 10.1 MG/DL 05/23/2019 6:50 AM [facility] ANION GAP 3.5(L) 5 - 15 MMOL/L 05/23/2019 6:50 AM [facility] BUN CREATININE RATIO 28.6(H) 6 - 26 05/23/2019 6:50 AM [facility] EGFR NON-AFR. AMER. 77(L) >90 ML/MIN/1.7 3 M2 05/23/2019 6:50 AM [facility] EGFR AFR. AMER. 90(L) >90 ML/MIN/1.7 3 M2 05/23/2019 6:50 AM [facility] Comment: NOTE: eGFR is not calculated for patients <18 years of age. This is an estimated GFR (CKD EPI) and should not be used for calculating drug doses. 05/23/2019 5:53 AM MARKETING RESEARCH COORDINATOR Selina Guzmán MD LABORATORY Final Result [facility] [address] [place] [address], [place] [phone] * (ABNORMAL) BASIC METABOLIC PANEL (05/21/2019 6:13 AM MARKETING RESEARCH COORDINATOR) GLUCOSE 128(H) 70 - 99 MG/DL 05/21/2019 6:54 AM [facility] BUN 28(H) 7 - 18 MG/DL 05/21/2019 6:54 AM [facility] CREATININE S/P/B 0.82 0.55 - 1.02 MG/DL 05/21/2019 6:54 AM [facility] SODIUM S/P/B 140 136 - 145 MMOL/L 05/21/2019 6:54 AM [facility] POTASSIUM S/P/B 4.8 3.5 - 5.1 MMOL/L 05/21/2019 6:54 AM [facility] CHLORIDE S/P/B 106 100 - 108 MMOL/L 05/21/2019 6:54 AM [facility] CO2 30.4 21 - 32 MMOL/L 05/21/2019 6:54 AM [facility] CALCIUM S/P/B 9.0 8.5 - 10.1 MG/DL 05/21/2019 6:54 AM [facility] ANION GAP 3.6(L) 5 - 15 MMOL/L 05/21/2019 6:54 AM [facility] BUN CREATININE RATIO 34.1(H) 6 - 26 05/21/2019 6:54 AM [facility] EGFR NON-AFR. AMER. 67(L) >90 ML/MIN/1.7 3 M2 05/21/2019 6:54 AM [facility] EGFR AFR. AMER. 78(L) >90 ML/MIN/1.7 3 M2 05/21/2019 6:54 AM [facility] Comment: NOTE: eGFR is not calculated for patients <18 years of age. This is an estimated GFR (CKD EPI) and should not be used for calculating drug doses. 05/21/2019 6:13 AM MARKETING RESEARCH COORDINATOR Selina Guzmán MD LABORATORY Final Result [facility] [address] [place] [address], [place] [phone] * (ABNORMAL) CBC W/DIFF AUTOMATED (05/21/2019 6:13 AM MARKETING RESEARCH COORDINATOR) WBC 23.3(H) 4.5 - 11.0 x10'3/uL 05/21/2019 6:37 AM [facility] RBC 4.00(L) 4.20 - 5.40 x10'6/uL 05/21/2019 6:37 AM [facility] HGB 12.1 12.0 - 16.0 G/DL 05/21/2019 6:37 AM [facility] HCT 38.6 38.0 - 48.0 % 05/21/2019 6:37 AM [facility] MCV 96.5 81.0 - 99.0 FL 05/21/2019 6:37 AM [facility] MCH 30.3 27.0 - 31.0 PG 05/21/2019 6:37 AM [facility] MCHC 31.3(L) 32.0 - 36.0 G/DL 05/21/2019 6:37 AM [facility] RDW 13.8 11.5 - 14.5 % 05/21/2019 6:37 AM [facility] PLT 303 130 - 400 x10'3/uL 05/21/2019 6:37 AM [facility] MPV 9.1(L) 9.3 - 12.2 FL 05/21/2019 6:37 AM [facility] DIFFERENTIAL TYPE MANUAL DIFFERENTIAL 05/21/2019 7:09 AM [facility] SEG NEUTROPHILS 94 % 0 7:09 AM [facility] LYMPHOCYTES 2 % 05/21/2019 7:09 AM [facility] MONOCYTES 3 % 05/21/2019 7:09 AM [facility] BANDS 1 % 05/21/2019 7:09 AM [facility] ABS. NEUTROPHILS CALCULATED 22.14(H) 1.80 - 7.70 x10'3/uL 05/21/2019 7:09 AM [facility] ABS.LYMPHOCYTES CALCULATED 0.47(L) 1.00 - 4.80 x10'3/uL 05/21/2019 7:09 AM [facility] ABS. MONOCYTES CALCULATED 0.70 0.24 - 0.86 x10'3/uL 05/21/2019 7:09 AM [facility] RBC MORPHOLOGY RBC MORPHOLOGY APPEARS NORMAL. SLIDE REVIEWED. 05/21/2019 7:09 AM [facility] PLT EST. ADEQUATE 05/21/2019 7:09 AM [facility] 05/21/2019 6:13 AM MARKETING RESEARCH COORDINATOR us Selina Guzmán MD LABORATORY Final Result [facility] [address] [place] [address], [place] [phone] * (ABNORMAL) BASIC METABOLIC PANEL (05/20/2019 6:27 AM MARKETING RESEARCH COORDINATOR) [facility] GLUCOSE 124(H) 70 - 99 MG/DL 05/20/2019 7:12 AM [facility] BUN 22(H) 7 - 18 MG/DL 05/20/2019 7:12 AM [facility] CREATININE S/P/B 0.73 0.55 - 1.02 MG/DL 05/20/2019 7:12 AM [facility] SODIUM S/P/B 139 136 - 145 MMOL/L 05/20/2019 7:12 AM [facility] POTASSIUM S/P/B 4.0 3.5 - 5.1 MMOL/L 05/20/2019 7:12 AM [facility] CHLORIDE S/P/B 104 100 - 108 MMOL/L 05/20/2019 7:12 AM [facility] CO2 30.6 21 - 32 MMOL/L 05/20/2019 7:12 AM [facility] CALCIUM S/P/B 9.1 8.5 - 10.1 MG/DL 05/20/2019 7:12 AM [facility] ANION GAP 4.4(L) 5 - 15 MMOL/L 05/20/2019 7:12 AM [facility] BUN CREATININE RATIO 30.1(H) 6 - 26 05/20/2019 7:12 AM [facility] EGFR NON-AFR. AMER. 77(L) >90 ML/MIN/1.7 3 M2 05/20/2019 7:12 AM [facility] EGFR AFR. AMER. 90(L) >90 ML/MIN/1.7 3 M2 05/20/2019 7:12 AM [facility] Comment: NOTE: eGFR is not calculated for patients <18 years of age. This is an estimated GFR (CKD EPI) and should not be used for calculating drug doses. 05/20/2019 6:27 AM MARKETING RESEARCH COORDINATOR us Jigna Campos MD LABORATORY Final Re sult [facility] [address] [place] [address], * (ABNORMAL) CBC W/DIFF AUTOMATED (05/20/2019 6:27 AM MARKETING RESEARCH COORDINATOR) WBC 20.7(H) 4.5 - 11.0 x10'3/uL 05/20/2019 6:49 AM [facility] RBC 4.25 4.20 - 5.40 x10'6/uL 05/20/2019 6:49 AM [facility] HGB 13.0 12.0 - 16.0 G/DL 05/20/2019 6:49 AM [facility] HCT 40.1 38.0 - 48.0 % 05/20/2019 6:49 AM [facility] MCV 94.4(H) 80.0 - 94.0 FL 05/20/2019 6:49 AM [facility] MCH 30.6 27.0 - 31.0 PG 05/20/2019 6:49 AM [facility] MCHC 32.4 32.0 - 36.0 G/DL 05/20/2019 6:49 AM [facility] RDW 13.8 11.5 - 14.5 % 05/20/2019 6:49 AM [facility] PLT 315 130 - 400 x10'3/uL 05/20/2019 6:49 AM [facility] MPV 8.9(L) 9.3 - 12.2 FL 05/20/2019 6:49 AM [facility] DIFFERENTIAL TYPE AUTOMATED DIFFERENTIAL 05/20/2019 6:49 AM [facility] NEUTROPHILS % 91.0 % 05/20/2019 6:49 AM [facility] LYMPHOCYTES % 4.2 % 05/20/2019 6:49 AM [facility] MONOCYTES % 3.6 % 05/20/2019 6:49 AM [facility] EOSINOPHILS 0.0 % 05/20/2019 6:49 AM [facility] BASOPHILS 0.1 % 05/20/2019 6:49 AM [facility] IMMATURE GRANS % 1.1 % 05/20/19 20 6:49 AM [facility] ABS. NEUTROPHILS TOTAL 18.82(H) 1.80 - 7.70 x10'3/uL 05/20/2019 6:49 AM [facility] ABS. LYMPHOCYTES 0.88(L) 1.00 - 4.80 x10'3/uL 05/20/2019 6:49 AM [facility] ABS. MONOCYTES 0.75 0.24 - 0.86 x10'3/uL 05/20/2019 6:49 AM [facility] ABS. EOSINOPHILS 0.00(L) 0.04 - 0.36 x10'3/uL 05/20/2019 6:49 AM [facility] ABS. BASOPHILS 0.03 0.01 - 0.08 x10'3/uL 05/20/2019 6:49 AM MARKETING RESEARCH COORDINATOR [facility] ABS. IMMATURE GRANULOCYTES 0.23 0.00 - 0.49 x10'3/uL 05/20/2019 6:49 AM MARKETING RESEARCH COORDINATOR [facility] 05/20/2019 6:27 AM MARKETING RESEARCH COORDINATOR Jigna Campos MD LABORATORY Final Re sult [facility] [address] [place] [address], [place] [phone] * CTA CHEST (05/19/2019 6:09 PM MARKETING RESEARCH COORDINATOR) Anatomical Region Laterality Modality Chest Computed Tomogra phy 05/19/2019 6:25 PM MARKETING RESEARCH COORDINATOR Impressions 05/19/2019 6:36 PM MARKETING RESEARCH COORDINATOR IMPRESSION: 1. ??Extensive upper lobe emphysematous changes. 2. ??Extensive bronchiectasis. 3. ??Low-density material in the bronchial lumens both lower lobes may represent inspissated mucus or other secretions. ??Peripheral consolidation probably scarring or atelectasis. ??Likely underlying fibrosis. 4. ??RIGHT BREAST MASS. ??INCIDENTAL. ??FURTHER EVALUATION RECOMMENDED. 5. ??No CT evidence of pulmonary embolism. Interpreted By: Donna Severino MD, 05/19/2019 6:25 PM Narrative 05/19/2019 6:36 PM MARKETING RESEARCH COORDINATOR CTA CHEST: 05/19/2019 6:02 PM CLINICAL INDICATION:: R/O PE shortness of breath began this morning. ??Patient on 2 L of O2 at home.. COMPARISON: None. TECHNIQUE: Computed tomography of the chest, after the administration of 80mL Isovue-370 contrast according to pulmonary embolism protocol without immediate complication. A dose lowering technique was used for this procedure, which may include, but is not limited to, dose reduction technique, automated exposure control, the use of iterative reconstruction, and ALARA (As Low As Reasonably Achievable) / Image Gently techniques. Additional Maximum Intensity reconstructions in multiple planes are reviewed and manipulated on an independent workstation. FINDINGS: Lung and Large Airways: There are fibrotic changes at both lung apices with evidence of paraseptal emphysema as well as centrilobular emphysema right side worse than left. ??There is peripheral bronchiectasis in the right upper lobe and bronchiectatic changes in both lower lobes. ??There is bronchial wall thickening or possibly inspissated secretions within a number of the lower lobe bronchi. ??There are tree-in-bud type infiltrates in both lower lobes which may be infectious. ??They could also be inflammatory. ??There is a 5 mm pulmonary nodule image 78 series 5 superior segment of the right lower lobe. ??Larger partially solid nodule 8.4 mm right middle lobe image 87. ??Areas of more peripheral consolidation or scarring right middle lobe near the lung base. ??Also scarring or atelectasis both costophrenic angles. ??I suspect these are inflammatory changes. Pleura: No significant pleural effusion. No evidence of pneumothorax. 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 ??Extensive atherosclerotic calcification. Pulmonary Arteries: Adequate opacification of pulmonary arteries. ??No intraluminal filling defects. ??No convincing CT evidence of acute pulmonary embolism.. Heart: normal size. No pericardial effusion. There are coronary calcifications present.. Mediastinum and [place]: No suspicious hilar nor mediastinal lymphadenopathy. Chest Wall and Lower Neck: THERE IS A ROUNDED MASSLIKE DENSITY 2.4 CM IN THE PATIENT'S RIGHT BREAST POSTERIORLY. ??Please correlate with any palpatory findings and mammographic evaluation. ??The mass has irregular borders. ??CT is not the optimal modality for evaluation of breast lesions. ??Cannot exclude neoplasm. ??There is otherwise dense breasts. Upper Abdomen: Prominence of both adrenal glands possible bilateral small adenomas tend a 13 mm. ??Low-density lesions within the liver nonspecific up to 10 mm. Bones: Degenerative changes in the dorsal spine. ??No osseous destructive lesions. Procedure Note Donna Severino MD - 05/19/2019 CTA CHEST: 05/19/2019 6:02 PM CLINICAL INDICATION:: R/O PE shortness of breath began this morning.Patient on 2 L of O2 at home.. COMPARISON: None. TECHNIQUE: Computed tomography of the chest, after the administration of80mL Isovue-370 contrast according to pulmonary embolism protocol withoutimmediate complication. A dose lowering technique was used for thisprocedure, which may include, but is not limited to, dose reductiontechnique, automated exposure control, the use of iterativereconstruction, and ALARA (As Low As Reasonably Achievable) / Image Gentlytechniques. Additional Maximum Intensity reconstructions in multipleplanes are reviewed and manipulated on an independent workstation. FINDINGS: Lung and Large Airways: There are fibrotic changes at both lung apiceswith evidence of paraseptal emphysema as well as centrilobular emphysemaright side worse than left. There is peripheral bronchiectasis in theright upper lobe and bronchiectatic changes in both lower lobes. There isbronchial wall thickening or possibly inspissated secretions within anumber of the lower lobe bronchi. There are tree-in-bud type infiltratesin both lower lobes which may be infectious. They could also beinflammatory. There is a 5 mm pulmonary nodule image 78 series 5 superiorsegment of the right lower lobe. Larger partially solid nodule 8.4 mmright middle lobe image 87. Areas of more peripheral consolidation orscarring right middle lobe near the lung base. Also scarring oratelectasis both costophrenic angles. I suspect these are inflammatorychanges. Pleura: No significant pleural effusion. No evidence of pneumothorax. 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 Extensive atherosclerotic calcification. Pulmonary Arteries: Adequate opacification of pulmonary arteries. Nointraluminal filling defects. No convincing CT evidence of acutepulmonary embolism.. Heart: normal size. No pericardial effusion. There are coronarycalcifications present.. Mediastinum and [place]: No suspicious hilar nor mediastinallymphadenopathy. Chest Wall and Lower Neck: THERE IS A ROUNDED MASSLIKE DENSITY 2.4 CM INTHE PATIENT'S RIGHT BREAST POSTERIORLY. Please correlate with anypalpatory findings and mammographic evaluation. The mass has irregularborders. CT is not the optimal modality for evaluation of breast lesions.Cannot exclude neoplasm. There is otherwise dense breasts. Upper Abdomen: Prominence of both adrenal glands possible bilateral smalladenomas tend a 13 mm. Low-density lesions within the liver nonspecificup to 10 mm. Bones: Degenerative changes in the dorsal spine. No osseous destructivelesions. IMPRESSION: 1. Extensive upper lobe emphysematous changes. 2. Extensive bronchiectasis. 3. Low-density material in the bronchial lumens both lower lobes mayrepresent inspissated mucus or other secretions. Peripheral consolidationprobably scarring or atelectasis. Likely underlying fibrosis. 4. RIGHT BREAST MASS. INCIDENTAL. FURTHER EVALUATION RECOMMENDED. 5. No CT evidence of pulmonary embolism. Interpreted By: Donna Severino MD, 05/19/2019 6:25 PM Elif Dozier MD CT Final Result * (ABNORMAL) BLOOD GAS, VENOUS, W/LACTATE (05/19/2019 4:42 PM MARKETING RESEARCH COORDINATOR) TIME TEST WAS PERFORMED: 1645 05/19/2019 4:46 PM [facility] SAMPLE TYPE VENOUS 05/19/2019 4:46 PM [facility] Comment:5 LPM OK TECH CODE 135,848 05/19/2019 4:46 PM MARKETING RESEARCH COORDINATOR [facility] PH VENOUS 7.43(H) 7.32 - 7.42 05/19/2019 4:48 PM [facility] PCO2 VENOUS 45.4 40 - 50 MMHG 05/19/2019 4:48 PM MARKETING RESEARCH COORDINATOR [facility] PO2 VENOUS 51.9(H) 30 - 50 MM HG 05/19/2019 4:48 PM [facility] BICARB VENOUS 29.9(H) 24 - 28 MMOL/L 05/19/2019 4:48 PM [facility] TCO2 31.3 25 - 40 MMOL/L 05/19/2019 4:48 PM [facility] VENOUS BASE EXCESS 4.7(H) 0 - 2 MMOL/L 05/19/2019 4:48 PM [facility] HEMOGLOBIN BLOOD GAS 13.5 12.0 - 16.0 G/DL 05/19/2019 4:48 PM MARKETING RESEARCH COORDINATOR [facility] % O2 HEMOGLOBIN VENOUS 85.2 >65 % 05/19/2019 4:48 PM MARKETING RESEARCH COORDINATOR [facility] CARBON MONOXIDE/COHB 0.6 <3 % 05/19/2019 4:48 PM [facility] METHEMOGLOBIN/M ETHB 0.5 <3 % 05/19/2019 4:48 PM [facility] O2 CONTENT 16.2(H) 11.0 - 16.0 VOL% 05/19/2019 4:48 PM MARKETING RESEARCH COORDINATOR [facility] LACTIC ACID VENOUS 2.5(H) 0.0 - 2.2 MMOL/L 05/19/2019 4:48 PM [facility] Comment: AN ORDER FOR A REPEAT LACTIC ACID TEST IS REQUIRED WITHIN 6 HOURS OF DIAGNOSIS ON A PATIENT WITH SEVERE SEPSIS. IN A PATIENT WITHOUT SEPSIS, A LACTIC ACID VALUE UP TO 2.2 MMOL/L MAY BE NORMAL. 05/19/2019 4:42 PM MARKETING RESEARCH COORDINATOR Elif Dozier MD LABORATORY Final Result [facility] [address] [place] [address], [place] [phone] * XR CHEST PORTABLE (05/19/2019 4:19 PM MARKETING RESEARCH COORDINATOR) Anatomical Region Laterality Modality Chest Radiographic Sharri ging 05/19/2019 4:27 PM MARKETING RESEARCH COORDINATOR Impressions 05/19/2019 4:31 PM MARKETING RESEARCH COORDINATOR =====IMPRESSION:===== ?? 1. Lung changes which can be seen with COPD. 2. Potentially acute on chronic lower lobe interstitial process; findings may represent a bronchitis superimposed on underlying chronic interstitial lung disease; no confluent consolidation. Follow-up HR CT chest May be of interest. Narrative 05/19/2019 4:31 PM MARKETING RESEARCH COORDINATOR Examination: Chest x-ray 1 view Exam date/time: 05/19/2019 3:58 PM Reason For Exam: ??83-year-old female with dyspnea. Prior diagnosis of pneumonia and COPD ?? Comparison: Chest x-ray 05/16/2019 and 05/12/2019 Technique: Upright ??AP view of the chest . Findings: ??Cardiac size is normal. Normally positioned trachea. Calcification of the aortic arch. Hilar metastatic contours are within normal limits. Lung hyperinflation with increased AP diameter of the chest, and upper lobe vascular attenuation suggestive of COPD. There are bilateral lower lobe interstitial opacity similar to 05/16/2019 but slightly increased compared to 05/12/2019. These represent a superimposed process on underlying chronic interstitial lung changes. No confluent airspace consolidation. There is no effusion or pneumothorax. Unremarkable upper abdomen. Procedure Note Gabriel Michel MD - 05/19/2019 Examination: Chest x-ray 1 view Exam date/time: 05/19/2019 3:58 PM Reason For Exam: 83-year-old female with dyspnea. Prior diagnosis of pneumonia and COPD Comparison: Chest x-ray 05/16/2019 and 05/12/2019 Technique: Upright AP view of the chest . Findings: Cardiac size is normal. Normally positioned trachea. Calcification of the aortic arch. Hilar metastatic contours are within normal limits. Lung hyperinflation with increased AP diameter of the chest, and upper lobe vascular attenuation suggestive of COPD. There are bilateral lower lobe interstitial opacity similar to05/16/2019 but slightly increased compared to 05/12/2019. These represent a superimposed process on underlying chronic interstitial lung changes. No confluent airspace consolidation. There is no effusion or pneumothorax. Unremarkable upper abdomen. =====IMPRESSION:===== 1. Lung changes which can be seen with COPD. 2. Potentially acute on chronic lower lobe interstitial process;findings may represent a bronchitis superimposed on underlying chronicinterstitial lung disease; no confluent consolidation. Follow-up HR CT chest May beof interest. Elif Dozier MD GENERAL IMAGING Final Result * PROCALCITONIN (PCT) (05/19/2019 3:35 PM MARKETING RESEARCH COORDINATOR) Pathologist [facility] Procalcitonin 0.08 <0.5 NG/ML 05/19/2019 9:16 PM MARKETING RESEARCH COORDINATOR [facility] 05/19/2019 3:35 PM MARKETING RESEARCH COORDINATOR Jigna Campos MD LABORATORY Final Re sult [facility] [address] [place] [address], [place] [phone] * CULTURE, BACTERIA, BLOOD (05/19/2019 3:35 PM MARKETING RESEARCH COORDINATOR) [facility] SPEC DESCRIPTION BLOOD 05/19/2019 3:31 PM MARKETING RESEARCH COORDINATOR [facility] SPECIAL REQUESTS NO SPECIAL REQUEST 05/19/2019 3:31 PM MARKETING RESEARCH COORDINATOR [facility] CULTURE RESULT NO GROWTH 5 DAYS 05/24/2019 12:46 PM MARKETING RESEARCH COORDINATOR [facility] BLOOD SPECIMEN OBTAINED FOR BLOOD CULTURE / Unknown 05/19/2019 3:35 PM MARKETING RESEARCH COORDINATOR 05/19/2019 3:44 PM MARKETING RESEARCH COORDINATOR Elif Dozier MD MICROBIOLOGY - GENERAL ORDERA BLES Final Result [facility] [address] [place] [address], [place] [phone] * CULTURE, BACTERIA, BLOOD (05/19/2019 3:35 PM MARKETING RESEARCH COORDINATOR) [facility] SPEC DESCRIPTION BLOOD 05/19/2019 3:31 PM MARKETING RESEARCH COORDINATOR [facility] SPECIAL REQUESTS NO SPECIAL REQUEST 05/19/2019 3:31 PM MARKETING RESEARCH COORDINATOR [facility] CULTURE RESULT NO GROWTH 5 DAYS 05/24/2019 12:46 PM MARKETING RESEARCH COORDINATOR [facility] BLOOD SPECIMEN OBTAINED FOR BLOOD CULTURE / Unknown 05/19/2019 3:35 PM MARKETING RESEARCH COORDINATOR 05/19/2019 3:44 PM MARKETING RESEARCH COORDINATOR us Elif Dozier MD MICROBIOLOGY - GENERAL ORDERA BLES Final Result Performing Organization Address City/[facility]/ZIP Co de Phone Number [facility] [address] [place] [address], [place] [phone] * BNP (05/19/2019 3:35 PM MARKETING RESEARCH COORDINATOR) B TYPE NATRIURETIC PEPTIDE 46 <100 PG/ML 05/19/2019 4:25 PM MARKETING RESEARCH COORDINATOR [facility] 05/19/2019 3:35 PM MARKETING RESEARCH COORDINATOR us Elif Dozier MD LABORATORY Final Result Performing Organization Address [facility] Co de Phone Number [facility] [address] [place] [address], [place] [phone] * TROPONIN, QUANT (05/19/2019 3:35 PM MARKETING RESEARCH COORDINATOR) TROPONIN I <0.015 <0.045 ng/mL. 05/19/2019 4:20 PM MARKETING RESEARCH COORDINATOR [facility] Comment: HIGH DOSES OF BIOTIN MAY INTERFERE WITH THIS TEST RESULT. CORRELATION TO CLINICAL HISTORY AND PRESENTATION RECOMMENDED. 05/19/2019 3:35 PM MARKETING RESEARCH COORDINATOR us Elif Dozier MD LABORATORY Final Result Performing Organization Address City/[facility]/ZIP Co de Phone Number [facility] [address] [place] [address], [place] [phone] * (ABNORMAL) BASIC METABOLIC PANEL (05/19/2019 3:35 PM [facility]) GLUCOSE 198(H) 70 - 99 MG/DL 05/19/2019 4:20 PM [facility] BUN 20(H) 7 - 18 MG/DL 05/19/2019 4:20 PM [facility] CREATININE S/P/B 0.71 0.55 - 1.02 MG/DL 05/19/2019 4:20 PM [facility] SODIUM S/P/B 138 136 - 145 MMOL/L 05/19/2019 4:20 PM [facility] POTASSIUM S/P/B 3.7 3.5 - 5.1 MMOL/L 05/19/2019 4:20 PM [facility] CHLORIDE S/P/B 104 100 - 108 MMOL/L 05/19/2019 4:20 PM [facility] CO2 28.5 21 - 32 MMOL/L 05/19/2019 4:20 PM [facility] CALCIUM S/P/B 8.6 8.5 - 10.1 MG/DL 05/19/2019 4:20 PM [facility] ANION GAP 5.5 5 - 15 MMOL/L 05/19/2019 4:20 PM [facility] BUN CREATININE RATIO 28.2(H) 6 - 26 05/19/2019 4:20 PM [facility] EGFR NON-AFR. AMER. 80(L) >90 ML/MIN/1.7 3 M2 05/19/2019 4:20 PM [facility] EGFR AFR. AMER. >90 >90 ML/MIN/1.7 3 M2 05/19/2019 4:20 PM [facility] Comment: NOTE: eGFR is not calculated for patients <18 years of age. This is an estimated GFR (CKD EPI) and should not be used for calculating drug doses. 05/19/2019 3:35 PM MARKETING RESEARCH COORDINATOR Elif Dozier MD LABORATORY Final Result [facility] [address] [place] [address], [place] [phone] * (ABNORMAL) CBC W/DIFF AUTOMATED (05/19/2019 3:35 PM MARKETING RESEARCH COORDINATOR) Pathologist [facility] WBC 20.5(H) 4.5 - 11.0 x10'3/uL 05/19/2019 3:49 PM MARKETING RESEARCH COORDINATOR [facility] RBC 4.53 4.20 - 5.40 x10'6/uL 05/19/2019 3:49 PM [facility] HGB 13.9 12.0 - 16.0 G/DL 05/19/2019 3:49 PM [facility] HCT 42.4 38.0 - 48.0 % 05/19/2019 3:49 PM [facility] MCV 93.6 80.0 - 94.0 FL 05/19/2019 3:49 PM [facility] MCH 30.7 27.0 - 31.0 PG 05/19/2019 3:49 PM [facility] MCHC 32.8 32.0 - 36.0 G/DL 05/19/2019 3:49 PM [facility] RDW 13.4 11.5 - 14.5 % 05/19/2019 3:49 PM MARKETING RESEARCH COORDINATOR [facility] PLT 327 130 - 400 x10'3/uL 05/19/2019 3:49 PM [facility] MPV 9.1(L) 9.3 - 12.2 FL 05/19/2019 3:49 PM [facility] DIFFERENTIAL TYPE AUTOMATED DIFFERENTIAL 05/19/2019 3:49 PM [facility] NEUTROPHILS % 89.7 % 05/19/2019 3:49 PM [facility] LYMPHOCYTES % 5.2 % 05/19/2019 3:49 PM [facility] MONOCYTES % 4.1 % 05/19/2019 3:49 PM [facility] EOSINOPHILS 0.0 % 05/19/2019 3:49 PM [facility] BASOPHILS 0.2 % 05/19/2019 3:49 PM [facility] IMMATURE GRANS % 0.8 % 05/19/19 20 3:49 PM [facility] ABS. NEUTROPHILS TOTAL 18.37(H) 1.80 - 7.70 x10'3/uL 05/19/2019 3:49 PM [facility] ABS. LYMPHOCYTES 1.07 1.00 - 4.80 x10'3/uL 05/19/2019 3:49 PM [facility] ABS. MONOCYTES 0.83 0.24 - 0.86 x10'3/uL 05/19/2019 3:49 PM [facility] ABS. EOSINOPHILS 0.00(L) 0.04 - 0.36 x10'3/uL 05/19/2019 3:49 PM [facility] ABS. BASOPHILS 0.04 0.01 - 0.08 x10'3/uL 05/19/2019 3:49 PM [facility] ABS. IMMATURE GRANULOCYTES 0.17 0.00 - 0.49 x10'3/uL 05/19/2019 3:49 PM [facility] 05/19/2019 3:35 PM MARKETING RESEARCH COORDINATOR Elif Dozier MD LABORATORY Final Result [facility] [address] [address], * ECG 12 lead (05/19/2019 3:28 PM MARKETING RESEARCH COORDINATOR) 05/19/2019 3:28 PM MARKETING RESEARCH COORDINATOR Narrative [facility] ([place]) RAD - 05/19/2019 8:56 PM MARKETING RESEARCH COORDINATOR ?[facility] [place] ? [address] [place] ? Test Date: ?2019-05-19 Pat Name: ? CARLEEN LAKE ? Department: ? Room: ? A423 Gender: ? Female ? Refractory Mixer: ?? ND : ?1935 ? Requested By: ELIF DOZIER Order Number: [id number] ? Reading MD: ?? Jefe Perez ? Measurements Intervals ?[place] ? Rate: ? 118 ?P: ?80 NC: ? 134 ?QRS: ?60 QRSD: ? 80 ? T: ?51 QT: ? 302 ? QTc: ?424 ? Interpretive Statements SINUS TACHYCARDIA POSSIBLE LEFT ATRIAL ENLARGEMENT ABNORMAL RHYTHM ECG Compared to ECG 05/12/2019 11:12:00 No significant changes No ischemic changes Pepe Marquez CRITICAL ALERT ISSUED ON 05-19-2019 15:33:37 ETING RESEARCH COORDINATOR Procedure Note Jefe Perez MD - 05/19/[address] [facility] Test Date: 2019-05-19 Pat Name: CARLEEN LAKE Department: Room: A423 Gender: Female Refractory Mixer: RICHARD : 1935 Requested By: ELIF DOZIER Order Number: [id number] Blanca MD: Jefe Perez Measurements Intervals [place] Rate: 118 P: 80 NC: 134 QRS: 60 QRSD: 80 T: 51 QT: 302 QTc: 424 Interpretive Statements SINUS TACHYCARDIA POSSIBLE LEFT ATRIAL ENLARGEMENT ABNORMAL RHYTHM ECG Compared to ECG 05/12/2019 11:12:00 No significant changes No ischemic changes Pepe Marquez. CRITICAL ALERT ISSUED ON 05-19-2019 15:33:37 ETING RESEARCH COORDINATOR us Elif Dozier MD ECG ORDERABLES Final Result [facility] documented in this encounter Visit Diagnoses Diagnosis COPD exacerbation ([facility])- Primary Obstructive chronic bronchitis with exacerbation COPD exacerbation ([facility]) Obstructive chronic bronchitis with exacerbation documented in this encounter Administered Medications Inactive Administered Medications - up to 3 most recent administrations Medication Order MAR Action Action Date Dose Rate Site acetaminophen (TYLENOL) tablet 650 mg 650 mg, Oral, Every 4 hours PRN, Mild pain (Scale 1 - 3), Headaches, Fever, Discomfort, Starting on Sun05/19/19 at 194, Until Sun05/23/19 at 2055, Maximum dose of acetaminophen is 4000 mg from all sources in 24 hours. albuterol (PROVENTIL) (2.5 MG/3ML) 0.083% nebulizer solution 15 mg 15 mg, Nebulization, Once, 1 dose, On Sun05/19/19 at 1545, Administer over 1 hour Given 05/19/2019 3:50 PM MARKETING RESEARCH COORDINATOR 15 mg albuterol (PROVENTIL) (2.5 MG/3ML) 0.083% nebulizer solution 2.5 mg 2.5 mg, Nebulization, Every 4 hours PRN, Wheezing, Shortness of breath, Starting on Sun05/19/19 at 194, Until Sun05/23/19 at 2055 amlodipine (NORVASC) tablet 5 mg 5 mg, Oral, Daily, First dose on Sun05/19/19 at 2045, Until Discontinued Given 05/23/2019 8:25 AM MARKETING RESEARCH COORDINATOR 5 mg Given 05/22/2019 8:25 AM MARKETING RESEARCH COORDINATOR 5 mg Given 05/21/2019 8:28 AM MARKETING RESEARCH COORDINATOR 5 mg docusate sodium (COLACE) capsule 100 mg 100 mg, Oral, 2 times daily PRN, Constipation, Starting on Sun05/19/19 at 194, Until Sun05/23/19 at 2055 doxycycline hyclate (VIBRAMYCIN) capsule 100 mg 100 mg, Oral, Every 12 hours scheduled (2 times per day), First dose on Sun05/19/19 at 2200, Until Discontinued Given 05/23/2019 8:25 AM MARKETING RESEARCH COORDINATOR 100 mg Given 05/22/2019 8:47 PM MARKETING RESEARCH COORDINATOR 100 mg Given 05/22/2019 8:25 AM MARKETING RESEARCH COORDINATOR 100 mg enoxaparin (LOVENOX) 40 MG/0.4ML syringe 40 mg 40 mg, Subcutaneous, Every 24 hours, First dose on Sun05/19/19 at 2000, Until Discontinued, Administer by deep SubQ injection alternating between the left or right anterolateral and left or right posterolateral abdominal wall. Given 05/22/2019 8:47 PM MARKETING RESEARCH COORDINATOR 40 mg Left Lower Abdomen Given 05/21/2019 10:49 PM MARKETING RESEARCH COORDINATOR 40 mg R ight Lower Abdomen Given 05/20/2019 8:44 PM MARKETING RESEARCH COORDINATOR 40 mg Le ft Lower Abdomen fluticasone propionate (FLONASE) 50 MCG/ACT nasal spray 1 spray 1 spray, Each Nostril, Daily, First dose on Deonna 05/22/19 at 1545, Until Discontinued Given 05/23/2019 6:09 AM MARKETING RESEARCH COORDINATOR 1 sp ray Given 05/22/2019 5:35 PM MARKETING RESEARCH COORDINATOR 1 spray hydrocodone-acetaminophen (NORCO) 5-325 MG tablet 1 tablet 1 tablet, Oral, Every 4 hours PRN, Moderate pain (Scale 4 - 7), Starting on Sun05/19/19 at 1949, Until Sun05/23/19 at 2056, Maximum dose of acetaminophen is 4000 mg from all sources in 24 hours. iopamidol (ISOVUE-370) 76 % injection 80 mL 80 mL, Intravenous, IMG once as needed, Contrast, 1 dose, Starting on Sun05/19/19 at 1809, Until Sun05/19/19 at 1809 Given 05/19/2019 6:09 PM MARKETING RESEARCH COORDINATOR 80 mLs Ri ght Arm ipratropium-albuterol (DUONEB) 0.5-2.5 (3) MG/3ML nebulizer solution 3 mL 3 mL, Nebulization, Every 4 hours, First dose on Sun05/19/19 at 2000, Until Discontinued Given 05/23/2019 3:15 PM MARKETING RESEARCH COORDINATOR 3 mLs Given 05/23/2019 7:17 AM MARKETING RESEARCH COORDINATOR 3 mLs Given 05/23/2019 3:50 AM MARKETING RESEARCH COORDINATOR 3 mLs methylPREDNISolone sodium succinate (SOLU-MEDROL) injection 40 mg 40 mg, Intravenous, Q8H, First dose (after last modification) on Sun05/21/19 at 0000, Until Discontinued, If ordered IV, administer into a vein over 3-15 minutes. Doses >= 2 mg/kg or 250mg should be given by infusion, unless the benefits of IV injection outweigh the risks (life-threatening shock) Given 05/21/2019 8:28 AM MARKETING RESEARCH COORDINATOR 40 mg Given 05/21/2019 12:36 AM MARKETING RESEARCH COORDINATOR 40 mg methylPREDNISolone sodium succinate (SOLU-MEDROL) injection 40 mg 40 mg, Intravenous, 2 times daily, First dose (after last modification) on Sun05/21/19 at 2100, Until Discontinued, If ordered IV, administer into a vein over 3-15 minutes. Doses >= 2 mg/kg or 250mg should be given by infusion, unless the benefits of IV injection outweigh the risks (life-threatening shock) Given 05/23/2019 8:26 AM MARKETING RESEARCH COORDINATOR 40 mg Given 05/22/2019 8:47 PM MARKETING RESEARCH COORDINATOR 40 mg Given 05/22/2019 8:25 AM MARKETING RESEARCH COORDINATOR 40 mg methylPREDNISolone sodium succinate (SOLU-MEDROL) injection 62.5 mg 62.5 mg, Intravenous, Every 6 hours scheduled (4 times per day), First dose on Sun05/19/19 at 2000, Until Discontinued, If ordered IV, administer into a vein over 3-15 minutes. Doses >= 2 mg/kg or 250mg should be given by infusion, unless the benefits of IV injection outweigh the risks (life-threatening shock) Given 05/20/2019 12:55 PM MARKETING RESEARCH COORDINATOR 62.5 mg Given 05/20/2019 7:35 AM MARKETING RESEARCH COORDINATOR 62.5 mg Given 05/19/2019 9:53 PM MARKETING RESEARCH COORDINATOR 62.5 mg morphine injection 2 mg 2 mg, Intravenous, Every 2 hours PRN, Severe pain (Scale 8 - 10), Starting on Sun05/19/19 at 194, Until Sun05/23/19 at 2055 naLOXone (NARCAN) injection 0.4 mg 0.4 mg, Intravenous, As needed, Opioid reversal, Starting on Sun05/19/19 at 1949, Until Sun05/23/19 at 2055 ondansetron (ZOFRAN) injection 4 mg 4 mg, Intravenous, Every 4 hours PRN, Nausea, Vomiting, Starting on Sun05/19/19 at 1949, Until Sun05/23/19 at 2055, IV push over 2-5 minutes. Given 05/22/2019 5:03 PM MARKETING RESEARCH COORDINATOR 4 mg pantoprazole EC (PROTONIX) tablet 40 mg 40 mg, Oral, Daily, First dose on Sun05/19/19 at 2044, Until Discontinued, Do not break, chew, or crush. Given 05/23/2019 8:25 AM MARKETING RESEARCH COORDINATOR 40 mg Given 05/22/2019 8:25 AM MARKETING RESEARCH COORDINATOR 40 mg Given 05/21/2019 8:28 AM MARKETING RESEARCH COORDINATOR 40 mg phenol (CHLORASEPTIC) spray 1 spray 1 spray, Mouth/Throat, As needed, Pain, Starting on Deonna 05/22/19 at 1527, Until Sun05/23/19 at 2055 polyethylene glycol (GLYCOLAX) packet 17 g 17 g, Oral, Daily as needed, Constipation, Starting on Sun05/19/19 at 194, Until Sun05/23/19 at 2055 documented in this encounter Active and Recently Administered Medications Times are shown in MARKETING RESEARCH COORDINATOR. Scheduled Medication Order 05/21/2019 05/22/2019 05/23/2019 amlodipine (NORVASC) tablet 5 mg 5 mg, Oral, Daily, First dose on Sun05/19/19 at 2044, Until Discontinued 0828 (Given - Provider: Luda Caputo RN) 08 (Given - Provider: Chiara Hauser RN) 08 (Given - Provider: Indu Bermudez, СВЕТЛАНА) doxycycline hyclate (VIBRAMYCIN) capsule 100 mg 100 mg, Oral, Every 12 hours scheduled (2 times per day), First dose on Sun05/19/19 at 2200, Until Discontinued 0828 (Given - Provider: Luda Caputo RN)2250 (Given - Provider: Dana Mahajan, СВЕТЛАНА) 0825 (Given - Provider: Chiara Hauser, СВЕТЛАНА)2046 (Given - Provider: Dana Mahajan, RN) 0825 (Given - Provider: Indu Bermudez, СВЕТЛАНА) enoxaparin (LOVENOX) 40 MG/0.4ML syringe 40 mg(Linked Group 1) 40 mg, Subcutaneous, Every 24 hours, First dose on Sun05/19/19 at 2000, Until Discontinued, Administer by deep SubQ injection alternating between the left or right anterolateral and left or right posterolateral abdominal wall. 2248 (Given - Provider: Dana Mahajan, СВЕТЛАНА) 2047 (Given - Provider: Dana Mahajan, СВЕТЛАНА) 1999 (Canceled Entry - Provider: Automatic Discharge Provider - Comment: Automatically canceled at discontinue of medication order) fluticasone propionate (FLONASE) 50 MCG/ACT nasal spray 1 spray 1 spray, Each Nostril, Daily, First dose on Deonna 05/22/19 at 1545, Until Discontinued 1735 (Given - Provider: Carey Martin RN) 0609 (Given - Provider: Dana Mahajan, СВЕТЛАНА) ipratropium-albuterol (DUONEB) 0.5-2.5 (3) MG/3ML nebulizer solution 3 mL 3 mL, Nebulization, Every 4 hours, First dose on Sun05/19/19 at 2000, Until Discontinued 0348 (Given - Provider: Linnea Max, BROOM MAKER)0739 (Given - Provider: Norah Husain, PHYSICIAN RELATIONS REPRESENTATIVE)1127 (Given - Provider: Norah Husain, PHYSICIAN RELATIONS REPRESENTATIVE)1432 (Given - Provider: Jacqueline Balderas, PHYSICIAN RELATIONS REPRESENTATIVE)1942 (Given - Provider: Heath Gillette, PHYSICIAN RELATIONS REPRESENTATIVE)2300 (Not Given - Provider: Mirian Cody, BROOM MAKER - Reason: Other - Comment: .) 0453 (Given - Provider: Mirian Cody BROOM MAKER)0703 (Given - Provider: Ortega Nolasco, BROOM MAKER)1055 (Given - Provider: Ortega Nolasco BROOM MAKER)1432 (Given - Provider: Ortega Nolasco BROOM MAKER)1910 (Given - Provider: Favio Stevens, RT Student)2341 (Given - Provider: Mirian Cody BROOM MAKER) 0350 (Given - Provider: Mirian Cody BROOM MAKER)0717 (Given - Provider: Elisa Live, BROOM MAKER)1146 (Not Given - Provider: Chani Presley, PHYSICIAN RELATIONS REPRESENTATIVE - Reason: Patient not available)1515 (Given - Provider: Ortega Nolasco, BROOM MAKER)1900 (Canceled Entry - Provider: Automatic Discharge Provider - Comment: Automatically canceled at discontinue of medication order) methylPREDNISolone sodium succinate (SOLU-MEDROL) injection 40 mg (CANCELED) 40 mg, Intravenous, Q8H, First dose (after last modification) on Sun05/21/19 at 0000, Until Discontinued, If ordered IV, administer into a vein over 3-15 minutes. Doses >= 2 mg/kg or 250mg should be given by infusion, unless the benefits of IV injection outweigh the risks (life-threatening shock) 0036 (Given - Provider: Shannan Genao RN)0828 (Given - Provider: Luda Caputo, СВЕТЛАНА) methylPREDNISolone sodium succinate (SOLU-MEDROL) injection 40 mg 40 mg, Intravenous, 2 times daily, First dose (after last modification) on Sun05/21/19 at 2100, Until Discontinued, If ordered IV, administer into a vein over 3-15 minutes. Doses >= 2 mg/kg or 250mg should be given by infusion, unless the benefits of IV injection outweigh the risks (life-threatening shock) 2250 (Given - Provider: Dana Mahajan RN) 08 (Given - Provider: Chiara Hauser, RN)2046 (Given - Provider: Dana Mahajan, RN) 0826 (Given - Provider: Indu Bermudez, СВЕТЛАНА) pantoprazole EC (PROTONIX) tablet 40 mg 40 mg, Oral, Daily, First dose on Sun05/19/19 at 204, Until Discontinued, Do not break, chew, or crush. 0828 (Given - Provider: Luda Caputo RN) 0825 (Given - Provider: Chiara aHuser, СВЕТЛАНА) 0825 (Given - Provider: Indu Bermudez, СВЕТЛАНА) PRN Medication Order 05/21/2019 05/22/2019 05/23/2019 acetaminophen (TYLENOL) tablet 650 mg 650 mg, Oral, Every 4 hours PRN, Mild pain (Scale 1 - 3), Headaches, Fever, Discomfort, Starting on Sun05/19/19 at 1949, Until Sun05/23/19 at 2055, Maximum dose of acetaminophen is 4000 mg from all sources in 24 hours. albuterol (PROVENTIL) (2.5 MG/3ML) 0.083% nebulizer solution 2.5 mg 2.5 mg, Nebulization, Every 4 hours PRN, Wheezing, Shortness of breath, Starting on Sun05/19/19 at 1949, Until Sun05/23/19 at 2055 docusate sodium (COLACE) capsule 100 mg 100 mg, Oral, 2 times daily PRN, Constipation, Starting on Sun05/19/19 at 1949, Until Sun05/23/19 at 2055 hydrocodone-acetaminophen (NORCO) 5-325 MG tablet 1 tablet 1 tablet, Oral, Every 4 hours PRN, Moderate pain (Scale 4 - 7), Starting on Sun05/19/19 at 1949, Until Sun05/23/19 at 2055, Maximum dose of acetaminophen is 4000 mg from all sources in 24 hours. morphine injection 2 mg 2 mg, Intravenous, Every 2 hours PRN, Severe pain (Scale 8 - 10), Starting on Sun05/19/19 at 1949, Until Sun05/23/19 at 2055 naLOXone (NARCAN) injection 0.4 mg 0.4 mg, Intravenous, As needed, Opioid reversal, Starting on Sun05/19/19 at 194, Until Sun05/23/19 at 2055 ondansetron (ZOFRAN) injection 4 mg 4 mg, Intravenous, Every 4 hours PRN, Nausea, Vomiting, Starting on Sun05/19/19 at 194, Until Sun05/23/19 at 2055, IV push over 2-5 minutes. 1703 (Given - Provider: Dariana Martin RN) phenol (CHLORASEPTIC) spray 1 spray 1 spray, Mouth/Throat, As needed, Pain, Starting on Sun05/22/19 at 1527, Until Sun05/23/19 at 2055 polyethylene glycol (GLYCOLAX) packet 17 g 17 g, Oral, Daily as needed, Constipation, Starting on Sun05/19/19 at 1949, Until Sun05/23/19 at 2055 Linked Groups Order Group 1: enoxaparin (LOVENOX) 40 MG/0.4ML syringe 40 mgJump to med 40 mg, Subcutaneous, Every 24 hours, First dose on Sun05/19/19 at 2000, Until Discontinued, Administer by deep SubQ injection alternating between the left or right anterolateral and left or right posterolateral abdominal wall. And Moderate Risk for VTE (COMPLETED) documented in this encounter Care Teams Sterile Processing Manager Relationship Specialty Start Date End Date None, Provider, PCP - General 05/12/19 07/16/19 documented as of this encounter
--- OUTSIDE RECORDS SUMMARY | 2024-04-30 19:33 | XMS_ITS | Encounter Summary ---
Author Organization [facility] Address [facility] 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 Answer Date of Assessment Author Status No 05/19/2019 10:18 PM MEDICAL RECORDS SUPERVISOR Acti ve * Do you have [...] Documents Scanned SCANNING Edited Result - Final [facility] documented in this encounter Visit Diagnoses Not on filedocumented in this encounter Care Teams Genetic Technologist Relationship Specialty Start Date End Date None, Provider, PCP - General 05/12/19 07/16/19 documented as of this encounter
--- OUTSIDE RECORDS SUMMARY | 2024-04-30 19:33 | XMS_ITS | Encounter Summary ---
Author Organization [facility] Address [facility] [place] [address] [place] [address] Care Team Providers Care Map Colorer Name Role Phone None, Provider MD Primary Care Provider Unavaila ble Reason for Visit * Reason Onset Date Comments Medication Request 02/17/2020 Encounter Details Date Type Department Care Team (Late st Contact Info) Description 02/17/2020 Telephone [facility] [address] [address] Evan Benitez MD [address] [place] [id number] Medication Request Social History Tobacco Use Types Packs/Day Years [...] Assessment Author Status No 05/19/2019 10:18 PM SPINNERET PERSON Acti ve * RETIRED Are you blind or do you have serious difficulty seeing, even when wearing glasses? Answer Date of Assessment Author Status No 05/19/2019 10:18 PM SPINNERET PERSON Acti ve * Do you have serious difficulty walking or climbing stairs? Answer Date of Assessment Author Status Yes 05/19/2019 10:18 PM SPINNERET PERSON Sujatha Molina RN Active * Do you have difficulty dressing or bathing? Answer Date of Assessment Author Status Yes 05/19/2019 10:18 PM SPINNERET PERSON Sujatha Molina RN Active * Because of a physical, mental, or emotional condition, do you have difficulty doing errands alone such as visiting a doctor's office or shopping? Answer Date of Assessment Author Status Yes 05/19/2019 10:18 PM SPINNERET PERSON Sujatha Molina RN Active documented as of this encounter Mental Status * Because of a physical, mental, or emotional condition, do you have serious difficulty concentrating, remembering, or making decisions? Answer Entry Date Author Status No 05/19/2019 10:18 PM SPINNERET PERSON Sujatha Molina RN Active documented in this encounter Progress Notes * Delfina Diaz MA - 02/17/2020 3:33 PM CSTAddended by: DELFINA DIAZ on: 02/17/2020 03:33 PM Modules accepted: Orders NERET PERSON * Delfina Diaz MA - 02/17/2020 3:32 PM CST Script for Symbicort sent NERET PERSON * Kain Nunez MA - 02/17/2020 2:56 PM CST Pt has an appointment scheduled with dr pritchett NERET PERSON * Eloisa Davis - 02/17/2020 2:36 PM CST Patient needs inhaler refilled . Pharmacy is [facility] in [place] [address]. Any questions call patient [phone]. NERET PERSON documented in this encounter Plan of Treatment Not on file documented as of this encounter Visit Diagnoses Diagnosis COPD exacerbation ([facility])- Primary Obstructive chronic bronchitis with exacerbation documented in this encounter Care Teams Map Colorer Relationship Specialty Start Date End Date None, Provider, PCP - General 07/17/19 documented as of this encounter
--- OUTSIDE RECORDS SUMMARY | 2024-04-30 19:33 | XMS_ITS | Encounter Summary ---
Author Organization [facility] Address [facility]. [place], [place] [id number] [place] [address] Care Team Providers Care Cold Mill Supervisor Name Role Phone None, Provider Primary Care Provider Unavaila ble Reason for Visit * Reason Onset Date Comments Information 03/17/2020 Encounter Details Date Type Department Care Team (Late st Contact Info) Description 03/17/2020 Telephone [facility] Medical [facility] Multispecialty Care - [facility] [address] [facility] [place] [address] Glenroy Davila MD [address] [facility] [address] [place] [address] Information Social History Tobacco Use Types Packs/Day Years [...] COVID-19? No / Unsure 02/24/2020 8:47 AM CHEMICAL TANK WORKER documented as of this encounter Functional Status * RETIRED Are you deaf or do you have serious difficulty hearing Answer Date of Assessment Author Status No 05/19/2019 10:18 PM CHEMICAL TANK WORKER Acti ve * RETIRED Are you blind or do you have serious difficulty seeing, even when wearing glasses? Answer Date of Assessment Author Status No 05/19/2019 10:18 PM CHEMICAL TANK WORKER Acti ve * Do you have serious difficulty walking or climbing stairs? Answer Date of Assessment Author Status Yes 05/19/2019 10:18 PM CHEMICAL TANK WORKER Sujatha Molina, СВЕТЛАНА Active * Do you have difficulty dressing or bathing? Answer Date of Assessment Author Status Yes 05/19/2019 10:18 PM CHEMICAL TANK WORKER Sujatha Molina RN Active * Because of [...] Date Author Status No 05/19/2019 10:18 PM CHEMICAL TANK WORKER Sujatha Molina RN Active documented in this encounter Progress Notes * Delfina Diaz MA - 03/17/2020 12:42 PM CST Called and left information of scheduling for her to call to get the tests done. ICAL TANK WORKER * Linda Knapp - 03/17/2020 12:08 PM CST FYI: Scheduling from [facility] called and wanted Dr. Davila to know that every time they call this patient to schedule her Mammogram and Ultrasound, she hangs up on them. ICAL TANK WORKER documented in this encounter Plan of Treatment Not on file documented as of this encounter Visit Diagnoses Not on filedocumented in this encounter Care Teams Cold Mill Supervisor Relationship Specialty Start Date End Date None, Provider, PCP - General 07/17/19 documented as of this encounter
--- OUTSIDE RECORDS SUMMARY | 2024-04-30 19:33 | XMS_ITS | Encounter Summary ---
Author Organization [facility] Address [facility]. [place], [place] [id number] [place] [address] Care Team Providers Care Warehouse Distribution Associate Name Role Phone None, Provider Primary Care Provider Unavaila ble Reason for Visit * Reason Comments Follow Up no issues, patient s tates she feels good. using 3L of O2 with activity. patient states that her nebulizer treatments are working well for her. * Consultation/Treatment (Routine) - Closed Specialty Diagnoses / Procedures Referred By Kady jenkins Referred To Contact NURSE PRACTITIONER / SLEEP & RESPIRATORY CARE Diagnoses Dr. Benitez patient Procedures FOLLOW UP New Referring, Provider Linda Santos, TURBOGENERATOR OPERATOR Referral ID Status Reason Start Date Expiration Date Visits Re quested Visits Authorized [id number] Closed 05/27/2019 05/27/2020 100 100 Encounter Details Date Type Department Care Team (Latest Contact Info) Description 07/22/2019 10:00 AM CDT Teleconsult [facility] Multispecialty Care - [address], [address] [place] [address] Linda Santos, TURBOGENERATOR OPERATOR Follow Up (no issues, patient states she feels good. using 3L of O2 with activity. patient states that her nebulizer treatments are working well for her. ) Social History Tobacco Use Types Packs/Day Years [...] Assessment Author Status No 05/19/2019 10:18 PM TOOL PLANER SET UP OPERATOR Acti ve * RETIRED Are you blind or do you have serious difficulty seeing, even when wearing glasses? Answer Date of Assessment Author Status No 05/19/2019 10:18 PM TOOL PLANER SET UP OPERATOR Acti ve * Do you have serious [...] documented in this encounter Progress Notes * Linda Santos, GEORGETTE - 07/22/2019 10:00 AM CDT I introduced and identified myself, received verbal consent from the patient to proceed with this video visit and made the patient aware that the same confidentiality and information assurance analyst practices apply. The patient joined the telephone visit from Home. I completed the virtual visit from Office. The following clinical staff helped with this visit Elle BACA. Total Time Spent in Minutes: 10 minutes on the phone. Patient called for COPD, hypoxia follow up. Patient reports breathing well with addition of DuoNeb to her regimen. Reports compliance with Symbicort, needing refills. Reports rare use of Albuterol HFA. The 15 stairs in her apartment cause dyspnea, otherwise her shortness of breath is minimal. Using oxygen intermittently. Asking to have it discontinued. No longer taking any pills (amlodipine, pantoprazole), did not have refills and she does not have aPCP, so she stopped the medications. Denies nose bleeds. Stopped Flonase. Denies thrush. Her sense of taste returned following nystatin course after last office visit. Impression/Plan: 1. COPD, emphysema -PFT when safe to do so, cannot obtain now due to the current outbreak of covid19 -Albuterol HFA q4h PRN -DuoNeb QID scheduled -Symbicort 160/4.5, ii puffs BID, rinse mouth after use and use with spacer - renew prescription 2. Chronic respiratory failure with hypoxia -*6 minute walk in clinic in 4 weeks -previously required 2L/min a rest, 4L/min with exertion -patient continues to need, use, and benefit from O2 -advised patient to obtain pulse oximeter for home monitoring of oxygen levels -encouraged more routine use of oxygen 3. Former tobacco use -encouraged continued cessation Return to clinic in 2 months. ROMINA Hernandez documented in this encounter Plan of Treatment Not on file documented as of this encounter Visit Diagnoses Diagnosis Pulmonary emphysema, unspecified emphysema type ([facility] HHS/HCC)- Primary Chronic respiratory failure with hypoxia ([facility]) Chronic respiratory failure Cigarette nicotine dependence in remission Tobacco use disorder documented in this encounter Care Teams Warehouse Distribution Associate Relationship Specialty Start Date End Date None, Provider, PCP - General 07/17/19 documented as of this encounter
--- OUTSIDE RECORDS SUMMARY | 2024-04-30 19:33 | XMS_ITS | Encounter Summary ---
Author Organization [facility] Address Critical access hospital6 [facility] [place] [address] [place] [address] Care Team Providers Care Fur Blower Name Role Phone None, Provider Primary Care Provider Unavaila ble Reason for Referral * (Routine) - Canceled Specialty Diagnoses / Procedures Referred By Kady jenkins Referred To Contact Procedures PT eval and treat Mounika Castro NP 1 [place] [address] Phone: tel: [phone] fax: Referral ID Status Reason Start Date Expiration Date V isits Requested Visits Authorized [id number] Canceled 05/14/2019 06/11/2020 1 1 RY SOUS CHEF Reason for Visit * Reason Comments Cough Respiratory Symptoms * Auth/Cert Specialty Diagnoses / Procedures Referred By Kady jenkins Referred To Contact Diagnoses Hypoxia COPD with acute exacerbation ([facility]) Acute respiratory failure ([facility]) Referral ID Status Reason Start Date Expiration Date Visits Re quested Visits Authorized [id number] 1 1 Encounter Details Date Type Department Care Team (Late st Contact Info) Description 05/12/2019 10:32 AM PASTRY SOUS CHEF - 05/16/2019 1:45 PM PASTRY SOUS CHEF Hospital Encounter [facility] Med/Surg [address] [place] [address] [place] MD Sampson, Michelle L, NURSING CLINICAL DIRECTOR [address] [facility] [address] [place] [address] Suzanne Worley, JUANCARLOS-Rodrigue Reyes MD 1 [place] [address] [phone] (Work) Mounika Castro NP 1 [place], [place] [id number] [phone] (Work) Mounika Miramontes NP 1 [place], [place] [id number] [phone] (Work) Cough; Respiratory Symptoms Discharge Disposition: Home or Self Care (Routine Discharge) Social History Tobacco Use Types Packs/Day Years Used Date Smoking Tobacco: Every Day Cigarettes Smokeless Tobacco: Never Alcohol Use Standard Drinks/Week [...] Sign Reading Time Taken Comments Blood Pressure 158/75 05/16/2019 7:45 AM PASTRY SOUS CHEF Pulse 105 05/16/2019 7:45 AM PASTRY SOUS CHEF Temperature 36.4 ??C (97.5 ??F) 05/16/2019 7:45 AM CS T Respiratory Rate 20 05/16/2019 10:4 8 AM PASTRY SOUS CHEF Oxygen Saturation 90% 05/16/2019 7:45 AM PASTRY SOUS CHEF Inhaled Oxygen Concentration - - Weight 50.8 kg (111 lb 15.9 oz) 05/13/2019 6:03 AM PASTRY SOUS CHEF Height 165.1 cm (5' 5 ) 05/12/2019 10:2 5 AM PASTRY SOUS CHEF Body Mass Index 18.64 05/12/2019 10:25 AM PASTRY SOUS CHEF documented in this encounter Functional Status * Question Answer Date of Assessment Author Status Do you have serious difficulty walking or climbing stairs? No 05/12/2019 3:06 PM Ally Zacarias RN A ctive * Question Answer Date of Assessment Author Status Do you have difficulty dressing or bathing? No 05/12/2019 3:06 PM Ally Zacarias RN Active Because of a physical, mental, or emotional condition, do you have difficulty doing errands alone such as visiting a doctor's office or shopping? No 05/12/2019 3:06 PM Ally Zacarias RN Ac tive * RETIRED Are you deaf or do you have serious difficulty hearing Answer Date of Assessment Author Status No 05/12/2019 3:06 PM PASTRY SOUS CHEF 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 Answer Date of Assessment Author Status No 05/12/2019 3:06 PM PASTRY SOUS CHEF Activ e * Do you have serious [...] difficulty concentrating, remembering, or making decisions? No 05/12/2019 3:06 PM Ally Zacarias RN Active * Because of a physical, mental, or emotional condition, do you have serious difficulty concentrating, remembering, or making decisions? Answer Entry Date Author Status No 05/12/2019 3:06 PM Ally Zacarias RN Active documented in this encounter Discharge Summaries * Mounika Miramontes NP - 05/16/2019 1:45 PM CST Hospitalist Discharge Summary Patient ID: Valeria Lake. female. 1935. Admit date: 05/12/2019 10:32 AM Discharge date and time: 05/16/19 Admitting Physician: Rodrigue Sylvester MD Primary Care Physician: Maryann Krueger, Discharge Physician: MOUNIKA MIRAMONTES NP Discharge Diagnosis: COPD Hospital Course: HPI:: Valeria Lake is a 83-year-old female With past medical history significant for peptic ulcer disease, Sandra-Banegas tear, who presents to our ER secondary to worsening shortness of breath over the last 4 days worsened with exertion, associated with productive cough with yellowish phlegm,subjective fever, chills and rigors, patient denied any chest pain, ported lack of energy and fatigability, creased appetite, patient denied any COPD or emphysema, had a PFT 30 years ago but does nothave a PCP at the current time, in the ER patient was evaluated and had to be placed on oxygen secondary to hypoxia, when patient was taken off oxygen her saturation would drop to high 80s, patient was given IV Solu-Medrol and azithromycin and get admitted for further evaluation and treatment. Pulmonary were consulted and continued azithromycin, prednisone taper. She continued on nebulizer and was started on ICS/LABA. She did slowly improved. Pulmonology recommended outpatient follow-up including PFT chest x-ray. 6-minute walk study showed need for 2 L at rest, 4 L with exertion. She was hemodynamically stable for discharge. She will need to follow-up with a PCP within 1 week. She willneed to follow-up with Dr. Avina in 2 to 3 weeks as directed. She will have a follow-up visit with transitional care. She lives at home and is independent in all aspects of care. Consults: pulmonology Discharge Exam: Filed Vitals: 05/15/19 1946 05/16/19 0431 05/16/19 0745 05/16/19 1048 BP: 129/71 (!) 155/56 (!) 158/75 Pulse: 105 102 105 Resp: Temp: 98.1 ??F (36.7 ??C) 98.2 ??F (36.8 ??C) 97.5 ??F (36.4 ??C) TempSrc: Oral Oral Oral SpO2: 90% 90% 90% Weight: Height: Physical Exam : GENERAL: Awake, pleasant elderly thin female, speaking full sentences. -EYES: Extraocular movements intact -ENT: Neck supple, Septum is midline. -LUNG:??Diminished breath sounds??bilaterally, No crackles. -CVS: Regular rate rhythm, S1 and S2 normal, No murmurs -ABDOMEN: Soft, nondistended, Nontender, Bowel sounds observed -EXT: no lower Ext edema. -NEURO: Alert, awake, oriented x3, No gross neuro deficit -SKIN: Skin color, texture, turgor normal. No rashes or lesions Code Status: Prior Discharge Medications: Medication List START taking these medications albuterol sulfate HFA 108 (90 Base) MCG/ACT inhaler Inhale 2 puffs into the lungs 4 (four) times daily. amlodipine 5 MG tablet Commonly known as: NORVASC Take 1 tablet (5 mg total) by mouth daily. Start taking on: May 17, 2019 azithromycin 250 MG tablet Commonly known as: ZITHROMAX Take1 tablet by mouth Start taking on: May 17, 2019 budesonide-formoterol 160-4.5 MCG/ACT inhaler Commonly known as: SYMBICORT Inhale 2 puffs into the lungs 2 (two) times daily. pantoprazole EC 40 MG tablet Commonly known as: PROTONIX Take 1 tablet (40 mg total) by mouth daily. Start taking on: May 17, 2019 predniSONE 10 mg tablet Commonly known as: DELTASONE Take 4 tablets by mouth daily for 2 days, then 3 tablets by mouth daily for 3 days, then 2 tablets by mouth for 3 days, then 1 tablet by mouth for 3 days then stop Where to Get Your Medications These medications were sent to [facility]/pharmacy #[id number] [place] [id number] ?? albuterol sulfate HFA 108 (90 Base) MCG/ACT inhaler ?? amlodipine 5 MG tablet ?? azithromycin 250 MG tablet ?? budesonide-formoterol 160-4.5 MCG/ACT inhaler ?? pantoprazole EC 40 MG tablet ?? predniSONE 10 mg tablet Imaging Xr Chest Pa+lat Result Date: 05/16/2019 EXAMINATION: Chest X-Ray 2 View EXAM DATE/TIME: 05/16/2019 9:47 AM REASON FOR EXAM: decreased breath sounds to right base; hypoxia; dyspnea COMPARISON: May 12, 2019 TECHNIQUE:PA and lateral views of the chest were obtained. FINDINGS: Interstitial prominence is seen particularly in the lung bases bilaterally and right upper lobe. Findings appear stable from prior study. Nopulmonary vascular redistribution is seen. Heart size is within normal limits. Hyperinflation suggestive chronic obstructive pulmonary disease. Spurring the thoracic spine is noted. Calcification of the aorta is consistent with atherosclerotic change. =====IMPRESSION:===== 1. Prominent interstitial markings, stable from prior exam. Pulmonary fibrosis or other etiologies possible. Correlate clinically. 2. Hyperinflation is suggestive chronic obstructive pulmonary disease. Xr Chest Pa+lat Result Date: 05/12/2019 Examination: XR CHEST PA+LAT Exam time: 05/12/2019 11:10 AM Clinical history: Cough. Shortness of breath. Symptoms for 3 weeks. Comparison: No prior exam Technique: Upright PA and lateral views Findings: There is paucity of peripheral vasculature within the mid and upper lung zones with increase interstitial markings within the lung bases. There is associated increase anterior posterior dimension of the chest with some flattening of each hemidiaphragm. Findings would be most consistent with emphysematous changes. There are no prior chest x- rays available for comparison. There are coarse linear opacities within the superior lateral right hemithorax with some apparent overlying pleural thickenin g. This would be most consistent with chronic pleural and parenchymal scarring. However, follow-up chest x-ray in 1-3 months could be obtained to evaluate stability. No definitive evidence of focal pulmonary consolidation or effusion. Cardiac silhouette and pulmonary vasculature are within normal limits. Atherosclerotic calcifications aortic arch region. IMPRESSION: 1. Emphysematous changes. 2. Probable pleural parenchymal scarring right apex. Follow-up chest x-ray in 1-3 months could be obtained to evaluate stability. 2. No definitive evidence of acute pulmonary infiltrate or consolidation. SSMENT & PLAN Acute respiratory failure with hypoxia:?? Patient admitted to the medical floor Continue oxygen supplement to maintain saturation above 92% Wean off as tolerated, patient not on home oxygen Will need to have an ambulatory O2 study prior to dc ?? Probable COPD exacerbation: CXR with Emphysematous changes. Long HX of tobacco abuse?? Patient does not have diagnosis of COPD??but given chest x-ray finding which was discussed with patient and continued smoking, patient advised she will need PFTs as outpatient. Recommend follow up with pulm. Patient started on IV steroid, continue and wean according to clinical eval Patient started on azithromycin, continue Will consult Pulm for recommendations Continue current management, Discharge home with transitional last visit, continue O2 at 2 L at rest, or liters with ambulation,continue steroid taper as directed. She will need to follow-up with PCP within 1 week, follow-up with pulmonology in 2 to 3 weeks and will need follow-up chest x-ray, PFT HTN No prior dx Start low dose norvasc Monitor and adjust therapies as clinically indicated Pt will need to f/u with PCP, check BP at home and keep a log of this ?? Tobacco Abuse Recommend cessation. Pt. Has not smoked in a week due to SOB, cough. She declines the need for a nicotine patch. ?? GERD Pt. With hx of GERD symptoms. Had bleeding ulcer in the past. Use to take zantac for a while then stopped. Pt. With reflux and nausea. Will add PPI since pt on steroids and increased s/s of GERD. ?? Mild Malnutrition with hypoalbuminemia Calculated BMI on 05/13 18 with albumin 2.6 Encourage supplementation Personnel Manager consulted Disposition: home with transitionalist Follow up: PCP, pulmonology Time Spent on Discharge 35 minutes Signed: MOUNIKA MIRAMONTES NP Cosigned by Selina Sorensen MD at 05/22/2019 8:00 AM PASTRY SOUS CHEF RY SOUS CHEF RY SOUS CHEF RY SOUS CHEF RY SOUS CHEF * Omer Moser RRT - 05/15/2019 12:01 PM CST Home Oxygen evaluation evaluation date and time Date of Evaluation: 05/15/19 Home Oxygen evaluation resting oxygen saturation Resting Oxygen Saturation on Oxygen: 88 % Resting Oxygen Settin Liters/minute Resting Saturation off Oxygen: 85 % Home oxygen evaluation exercise saturation Exercise Oxygen Saturation on Oxygen: 89 % Exercise Oxygen Settin Liters/Minute Distance Walked: 6 MINUTES Home oxygen evaluation sleeping oxygen saturation Oxygen Evaluation Comment: 2L AT REST 4L WITH AMBULATION RY SOUS CHEF documented in this encounter Medications at Time of Discharge albuterol sulfate HFA 108 (90 Base) MCG/ACT inhaler Inhale 2 puffs into the lungs 4 (four) times daily. 1 Inhaler 05/16/2019 amlodipine 5 MG tablet Take 1 tablet (5 mg total) by mouth daily. 30 tablet 05/17/2019 07/22/2019 azithromycin 250 MG tablet Take1 tablet by mouth 1 tablet 05/17/2019 05/19/2019 budesonide-formot sunshine 160-4.5 MCG/ACT inhaler Inhale 2 puffs into the lungs 2 (two) times daily. 1 Inhaler 05/16/2019 07/22/2019 pantoprazole EC 40 MG tabletIndications :Gastroesophageal reflux disease without esophagitis Take 1 tablet (40 mg total) by mouth daily. 30 tablet 05/17/2019 07/22/2019 predniSONE 10 mg tablet Take 4 tablets by mouth daily for 2 days, then 3 tablets by mouth daily for 3 days, then 2 tablets by mouth for 3 days, then 1 tablet by mouth for 3 days then stop 26 tablet 05/16/2019 05/23/2019 documented as of this encounter Progress Notes * Jose Alejandro Graff RN - 05/16/2019 12:00 PM CST Spoke with СВЕТЛАНА Lares, [facility] home health on nursing unit today re:visit for patient and transitional care. RY SOUS CHEF * Jose Alejandro Graff RN - 05/16/2019 11:33 AM CST Patient given Good rx card, and printed medication coupons for symbicort and albuterol inhalers. Ptencouraged to choose PCP from list given the other day, will be needed for follow up and future scripts if needed. Pt voiced understanding. Amanda, Provider plus rep, halod re: pt has discharge order/home o2 needed. RY SOUS CHEF * Nishi Love, LOFT PATTERNMAKER - 05/16/2019 10:38 AM CST 05/16/19905 Therapy Visit Ordering Provider Romero WESLEY Subjective Patient stated she was feeling very tired and sore today from yesterday PT session. Patient was willing to work with PT today. Reason for admission ARF (suspect COPD) Relevant Comorbidities/ Personal Factors to PT PVD, Sandra Banegas tear, bleeding ulcer, GERD Verified Two Patient Identifiers Yes Patient consents to therapy Yes Acute Inpatient PT Time Calculation PT Start Time 905 PT Stop Time 922 PT Time Calculation (min) 17 min Precautions Precautions Yes/No Yes General Precautions Bed Alarm;Chair Alarm;Fall Risk;Supplemental oxygen Instructed on Precautions Yes Pain Pain Patient does not offer or c/o pain (Just said sore all over. ) Activity Tolerance Endurance Tolerates 10 - 20 min activity with rests Activity Tolerance Comments Patient still demonstrates increased SOB while ambulating. Educated patient on PLB in order to increase her oxygen saturation. Patient's O2 sats remained between 88-92%. When O2 sats decreased to 88%, patient requires a few rest standing breaks to increase the O2 sats. Educated patient to decrease talking during gait to help with energy conservation. Cognition Overall Cognitive Status WFL Orientation Level Oriented X4 Bed Mobility Rolling Independent Supine to Sit Independent TRANSFERS Sit to Stand Independent Other (Comment) Patient was able to rise up from EOB with 1 attempt. Gait Gait Assistance Contact guard assist Assistive Device 2 Wheeled walker Ambulation Distance (Feet) 75 feet Other (Comment) Patient still demonstrates a slow gabriel while ambulating with WW. Patient requires cueing on breathing in through nose and out through the mouth. Limited distance due to desaturation. Stairs Other (Comment) Due to increased SOB and fatigue. Patient did not perform stair training this day. Balance Sitting - Static Independent Sitting - Dynamic Independent Standing - Static Independent Standing - Dynamic SBA;CGA Other (Comment) Patient was able to donned sweatpants while sitting on EOB with no unsteadiness noted. Watched carefully while patient stood up and pull up her pants up to her waist, patient did not have any unsteadiness. Exercises Short Arc Quad LAQ x10 (b) Hip Flexion seated marching x10 (B) Other (Comment) Patient did very well with LE exercises, she did need cueing on making sure to breathe in through nose and out through mouth to keep O2 sats in 90's. Patient/Family Training Bed Mobility x Transfer Training x Gait Training x Precautions x Exercise Program x Other (Comment) Patient still requires consistent v/c on PLB. Recommendation PT Recommendation PT during Hospitalization;Home PT Plan PT Treatments/Interventions Gait Training Progress Slow progress, decreased activity tolerance PT Frequency Daily;BID;6 times/week If this is the last treatment note,it will serve as the discharge summary Yes End of Session Safety End of Session Safety Chair alarm set/activated;Call light within reach;Nursing aware of session RY SOUS CHEF * Linda Santos, GEORGETTE - 05/16/2019 9:08 AM CST Pulmonary Progress Note History Chief Complaint Patient presents with ??? Cough ??? Respiratory Symptoms Valeria Lake is a 83-year-old white female smoker with past medical history of peptic ulcer disease and Sandra-Banegas tear, TB status post treatment, per chart review presented to the emergencydepartment on 05/12/2019 with a 3-week history of increasing respiratory distress. Over the 4 days preceding admission had noted increasing cough with white to green sputum production. Noted wheezing while at rest. Denies following with a primary care physician, denies having ever seen a material requisitioner. 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 CXR 05/12/2019: -Emphysema -Probable right apical scarring 05/16/19: Notes mildly worsening dyspnea. Notes epistaxis. Notes bilateral lower extremity pain, acute on chronic. Required oxygen at 2 L at rest, 4 L with activity on home oxygen test from 05/15/19. Notes poor appetite. 05/15/19: Feeling better overall. Notes dyspnea upon ambulating without oxygen to the bathroom; dyspnea improves with O2 and rest. Notes cough, intermittent wheezing. Patient feels Albuterol neb treatments are beneficial. Notes generalized weakness since onset of recent illness. Past Medical History: Diagnosis Date ??? Fall ??? Gastroesophageal reflux disease without esophagitis 05/14/2019 Hx of GI bleed ??? Vaginal delivery x 3 History reviewed. No pertinent surgical history. Social History Tobacco Use ??? Smoking status: Current Every Day Smoker Packs/day: 1.00 Types: Cigarettes ??? Smokeless tobacco: Never Used Substance Use Topics ??? Alcohol use: Not Currently ??? Drug use: Never No family history on file. ??? amlodipine 5 mg Oral Daily ??? azithromycin 250 mg Oral Daily ??? enoxaparin 40 mg Subcutaneous Q24H ??? famotidine 20 mg Oral Daily Or ??? famotidine 20 mg Intravenous Daily ??? fluticasone-salmeterol 2 puff Inhalation Q12H ??? ipratropium-albuterol 3 mL Nebulization 4x daily - RT ??? pantoprazole EC 40 mg Oral Daily ??? predniSONE 40 mg Oral Daily acetaminophen, ipratropium-albuterol, ondansetron No Known Allergies ROS: General: denies fever, chills, night sweats Neuro: notes weakness Psych: denies depression, anxiety Eyes: denies blurry vision ENT: Notes epistaxis Neck: denies difficulty swallowing, swelling Chest: denies chest pain, palpitations Resp: notes sob, denies wheezing, notes cough with sputum GI: denies abdominal pain; notes poor appetite Ext: denies swelling, numbness; notes lower extremity pain Skin: denies rash Physical Exam Filed Vitals: 05/15/19 0726 05/15/19 1400 05/15/19 1946 05/16/19 0431 BP: (!) 172/90 129/71 (!) 155/56 Pulse: 114 105 102 Resp: 22 22 22 Temp: 97.6 ??F (36.4 ??C) 98.1 ??F (36.7 ??C) 98.2 ??F (36.8 ??C) TempSrc: Oral Oral Oral SpO2: 91% 91% 90% 90% Weight: Height: Physical Exam: General: thin wf, pleasant, in NAD Neuro: Alert, appropriate Psych: Affect normal Head: NC, AT EENT: No Sinus tenderness to palpation, mallampati 1 Neck: Supple Lymph: No cervical lymphadenopathy Respiratory: non-labored, diminished bs bilaterally, very diminished at right base; prolonged expiratory phase, no wheezes/crackles; on O2 at 2L/min Cardiovascular: s1,s2, rrr, no audible murmur GI: soft, non-tender, non-distended, bs+ Musc: right wrist ROM wnl Ext: no edema, no clubbing Skin: No visible rashes Recent Labs Lab 05/14/19 0944 05/15/19 0901 05/16/19 0556 WBC 19.8* 17.4* 14.8* RBC 4.33 4.40 4.26 HGB 13.4 13.4 13.0 HCT 40.3 41.4 40.4 MCV 93.1 94.1* 94.8 MCH 30.9 30.5 30.5 MCHC 33.3 32.4 32.2 PLT 386 385 346 RDW 13.4 13.5 13.6 MPV 8.5* 8.9* 8.8* PERNEU 87.3 80.1 74.3 PERLYM 6.5 9.7 14.2 PERMON 4.5 8.0 9.5 LYMC 1.28 1.68 2.10 MONOC 0.90* 1.40* 1.41* EOSC 0.00* 0.00* 0.01* BASOC 0.03 0.05 0.03 DTYPE AUTOMATED DIFFERENTIAL AUTOMATED DIFFERENTIAL AUTOMATED DIFFERENTIAL Recent Labs Lab 05/12/19 1058 05/13/19 0548 05/14/19 0944 05/15/19 0901 05/16/19 0556 NA 136 139 140 139 139 K 3.9 4.2 3.5 3.5 3.6 CL 104 109* 107 105 105 CO2 26.5 26.4 27.6 29.1 30.7 AGAP 5.5 3.6* 5.4 4.9* 3.3* BUN 16 13 17 17 18 CR 0.71 0.61 0.78 0.83 0.68 BUNCREATININ 22.5 21.3 21.7 20.5 26.6* GFRNON 80* 85* 71* 66* 82* GFR >90 >90 83* 77* >90 GLU 163* 143* 155* 205* 81 CA 9.2 9.3 9.2 8.8 8.5 TP 7.6 6.8 -- -- -- ALB 2.9* 2.6* -- -- -- TBIL 0.4 0.3 -- -- -- ALKP 80 73 -- -- -- AST 58* 34 -- -- -- ALT 68* 58* -- -- -- Recent Labs Lab 05/13/19 0548 INR 1.1 Xr Chest Pa+lat Result Date: 05/12/2019 Examination: XR CHEST PA+LAT Exam time: 05/12/2019 11:10 AM Clinical history: Cough. Shortness of breath. Symptoms for 3 weeks. Comparison: No prior exam Technique: Upright PA and lateral views Findings: There is paucity of peripheral vasculature within the mid and upper lung zones with increase interstitial markings within the lung bases. There is associated increase anterior posterior dimension of the chest with some flattening of each hemidiaphragm. Findings would be most consistent with emphysematous changes. There are no prior chest x- rays available for comparison. There are coarse linear opacities within the superior lateral right hemithorax with some apparent overlying pleural thickenin g. This would be most consistent with chronic pleural and parenchymal scarring. However, follow-up chest x-ray in 1-3 months could be obtained to evaluate stability. No definitive evidence of focal pulmonary consolidation or effusion. Cardiac silhouette and pulmonary vasculature are within normal limits. Atherosclerotic calcifications aortic arch region. IMPRESSION: 1. Emphysematous changes. 2. Probable pleural parenchymal scarring right apex. Follow-up chest x-ray in 1-3 months could be obtained to evaluate stability. 2. No definitive evidence of acute pulmonary infiltrate or consolidation. Assessment 1. Acute hypoxic respiratory failure 2. Acute bronchitis -Likely acute exacerbation of undiagnosed COPD 3. Radiographic emphysema 4. Tobacco abuse 5. Recent weight loss 6. PUD, GERD 7. Epistaxis -Likely related to oxygen use 8. Hypertension Plan 1. Supplemental O2 to maintain sats >88% -ambulatory O2 prior to dc -completed 05/15/2019, required 2 L at rest, 4 L with exertion 2. Antibiotics: Azithromycin, day 4/5 3. Prednisone, continue taper at discharge 4. Nebulizer: Duoneb qid -will need Albuterol HFA at discharge; use QID scheduled and q4h PRN until over exacerbation, then transition to PRN use 5. ICS/LABA -[facility] -rinse mouth and spit after use -obtain lowest cost alternative upon dc; Breo 100, Symbicort 160, Dulera 100; Wixela 250, AirDuo 113 6. Incentive Spirometry 7. Flutter/Acapella 8. Imaging: plan outpatient cxr, prior imaging personally reviewed 9. Encouraged smoking cessation 10. With very diminished breath sounds to right base and worsening dyspnea, obtain chest x-ray today 11. Humidify oxygen, use saline nasal spray/gel for epistaxis 12. Plan for outpatient pulmonary follow-up -will need PFT, 6MWT, CXR -follow up with ROMINA Hernandez or Dr Wilkinson in 2-3 weeks Linda Santos APRN, ACNP Cosigned by Floyd Wilkinson MD at 05/16/2019 2:45 PM PASTRY SOUS CHEF RY SOUS CHEF RY SOUS CHEF * Sissy Rodriguez RN - 05/15/2019 8:51 PM CST Patient O2 sat 90% on 2L NC. Getting scheduled breathing treatments. No c/o shortness of breath or pain. Patient refusing bed alarm. Education given on safety and falls in the hospital. Patient understands but still declines. Call light in reach. RY SOUS CHEF * Nishi Love PTA - 05/15/2019 3:56 PM CST 05/15/19 1430 Therapy Visit Ordering Provider Romero WESLEY Subjective Patient stated she did not know she has PT but she said we can help her get her strengthback. Patient stated she has been SOB lately but was agreeable to work with therapy this date. Reason for admission ARF (suspect COPD) Relevant Comorbidities/ Personal Factors to PT PVD, Sandra Banegas tear, bleeding ulcer, GERD Verified Two Patient Identifiers Yes Patient consents to therapy Yes Acute Inpatient PT Time Calculation PT Start Time 1430 PT Stop Time 1453 PT Time Calculation (min) 23 min Precautions Precautions Yes/No Yes General Precautions Bed Alarm;Chair Alarm;Fall Risk;Supplemental oxygen Instructed on Precautions Yes Pain Pain Patient does not offer or c/o pain Activity Tolerance Endurance Tolerates 20 - 30 min activity with rests Activity Tolerance Comments Patient demonstrates increased SOB while performing LE exercise in sitting on EOB and ambulating. Sitting O2 sats while on 2L O2 was 94%. With gait at 4L O2 sats were 92-94%. Cognition Overall Cognitive Status WFL Orientation Level Oriented X4 Bed Mobility Rolling Independent Supine to Sit Independent Sit to Supine Independent TRANSFERS Sit to Stand Independent Other (Comment) Patient was able to rise up from EOB with 1 attempt. Gait Gait Assistance Contact guard assist Assistive Device 2 Wheeled walker;None Ambulation Distance (Feet) 120 feet Other (Comment) Patient demonstrates slow gabriel while ambulating without an AD. Due to increased SOB, patient requires a few standing breaks. Pt. oxygen levels stayed at 92-94% during ambulation. Patient's HR at rest started at 125bpm and during ambulation, it increased up to 130bpm. The last 30 feet of ambulation, therapist recommended a WW to help conserve energy and be more steady. Stairs Other (Comment) Due to increased SOB and increased HR, patient did not perform stairs this session. Balance Sitting - Static Independent Sitting - Dynamic Independent Standing - Static Independent Standing - Dynamic SBA;CGA Other (Comment) Patient was able to donned sweatpants while sitting on EOB with no unsteadiness noted. Exercises Quad Sets 10x (B) Short Arc Quad LAQ x10 Glut Sets 10x Hip Flexion seated marching x10 Patient/Family Training Bed Mobility x Transfer Training x Gait Training x Precautions x Exercise Program x Other (Comment) Patient requires verbal cues for PLB. Recommendation PT Recommendation PT during Hospitalization;Home PT Plan PT Treatments/Interventions Gait Training Progress Slow progress, decreased activity tolerance PT Frequency Daily;BID;6 times/week If this is the last treatment note,it will serve as the discharge summary Yes End of Session Safety End of Session Safety Bed alarm set/activated;Call light within reach RY SOUS CHEF * Jose Alejandro Graff RN - 05/15/2019 2:27 PM CST Important Message from Medicare provided to patient/patient patient accounting representative. Education provided and patient/patient patient accounting representative verbalized understanding and signed. Patient/patient patient accounting representative provided copy of IMM and copy placed into chart for scanning. RY SOUS CHEF * Mounika Miramontes NP - 05/15/2019 12:01 PM CST Hospitalist Daily Progress Note Subjective Ms Lake is resting in bed when seen and examined upon rounds this morning. She tells me she continues to be significantly dyspneic with any type of exertion. She continues to have a productive cough. Discussed with patient elevated blood pressures, and states she has not taken blood pressure medications before. Will start low-dose Norvasc. She denies any chest pain, fever/chills, nausea/vomiting /diarrhea, palpitations. Review of Systems Constitutional: Positive for malaise/fatigue and weight loss. HENT: Negative for congestion and sore throat. Eyes: Negative. Respiratory: Positive for cough, shortness of breath and wheezing. Negative for sputum production. Cardiovascular: Negative for chest pain and leg swelling. Gastrointestinal: Positive for nausea. Negative for abdominal pain, constipation, diarrhea and vomiting. Poor appetite, poor intake Genitourinary: Negative. Musculoskeletal: Positive for myalgias. Neurological: Positive for dizziness and headaches. Endo/Heme/Allergies: Does not bruise/bleed easily. Psychiatric/Behavioral: Negative. Objective Filed Vitals: 05/14/19 1500 05/14/19 1959 05/15/19 0523 05/15/19 0726 BP: (!) 151/71 (!) 177/98 (!) 175/85 Pulse: 109 110 94 Resp: 17 Temp: 98 ??F (36.7 ??C) 97.6 ??F (36.4 ??C) 97.9 ??F (36.6 ??C) TempSrc: Oral Oral Oral SpO2: 92% 93% 95% 91% Weight: Height: Physical Exam: -GENERAL: Awake, pleasant elderly thin female, some mild distress speaking full sentences. -EYES: Extraocular movements intact -ENT: Neck supple, Septum is midline. -LUNG: Diminished breath sounds bilaterally, bilateral expiratory wheezes, No crackles. Rhonchi in RLL -CVS: Regular rate rhythm, S1 and S2 normal, No murmurs, -ABDOMEN: Soft, nondistended, Nontender, Bowel sounds observed -EXT: no lower Ext edema. -NEURO: Alert, awake, oriented x3, No gross neuro deficit -SKIN: Skin color, texture, turgor normal. No rashes or lesions Intake/Output 24H Total: Intake/Output Summary (Last 24 hours) at 05/15/2019 1202 Last data filed at 05/15/2019 0914 Gross per 24 hour Intake 716 ml Output -- Net 716 ml Medication ??? azithromycin 250 mg Oral Daily ??? enoxaparin 40 mg Subcutaneous Q24H ??? famotidine 20 mg Oral Daily Or ??? famotidine 20 mg Intravenous Daily ??? fluticasone-salmeterol 2 puff Inhalation Q12H ??? ipratropium-albuterol 3 mL Nebulization 4x daily - RT ??? pantoprazole EC 40 mg Oral Daily ??? predniSONE 40 mg Oral Daily PRN Meds: acetaminophen, ipratropium-albuterol, ondansetron Labs: Recent Results (from the past 24 hour(s)) CBC W/DIFF AUTOMATED Collection Time: 05/15/19 9:01 AM Result Value Ref Range WBC 17.4 (H) 4.5 - 11.0 x10'3/uL RBC 4.40 4.20 - 5.40 x10'6/uL HGB 13.4 12.0 - 16.0 G/DL HCT 41.4 38.0 - 48.0 % MCV 94.1 (H) 80.0 - 94.0 FL MCH 30.5 27.0 - 31.0 PG MCHC 32.4 32.0 - 36.0 G/DL RDW 13.5 11.5 - 14.5 % PLT 385 130 - 400 x10'3/uL MPV 8.9 (L) 9.3 - 12.2 FL DIFFERENTIAL TYPE AUTOMATED DIFFERENTIAL NEUTROPHILS 80.1 % LYMPHOCYTES 9.7 % MONOCYTES 8.0 % EOSINOPHILS 0.0 % BASOPHILS 0.3 % IMMATURE GRANS 1.9 % ABS. NEUTROPHILS TOTAL 13.94 (H) 1.80 - 7.70 x10'3/uL ABS. LYMPHOCYTES 1.68 1.00 - 4.80 x10'3/uL ABS. MONOCYTES 1.40 (H) 0.24 - 0.86 x10'3/uL ABS. EOSINOPHILS 0.00 (L) 0.04 - 0.36 x10'3/uL ABS. BASOPHILS 0.05 0.01 - 0.08 x10'3/uL ABS. IMMATURE GRANULOCYTES 0.33 0.00 - 0.49 x10'3/uL BASIC METABOLIC PANEL Collection Time: 05/15/19 9:01 AM Result Value Ref Range GLUCOSE 205 (H) 70 - 99 MG/DL BUN 17 7 - 18 MG/DL CREATININE 0.83 0.55 - 1.02 MG/DL SODIUM 139 136 - 145 MMOL/L POTASSIUM 3.5 3.5 - 5.1 MMOL/L CHLORIDE 105 100 - 108 MMOL/L CO2 29.1 21 - 32 MMOL/L CALCIUM 8.8 8.5 - 10.1 MG/DL ANION GAP 4.9 (L) 5 - 15 MMOL/L BUN CREATININE RATIO 20.5 6 - 26 eGFR Non-Afr. Amer. 66 (L) >90 ML/MIN/1.73 M2 eGFR Afr. Amer. 77 (L) >90 ML/MIN/1.73 M2 X-Ray Xr Chest Pa+lat ?? Result Date: 05/12/2019 ?? IMPRESSION: 1. Emphysematous changes. 2. Probable pleural parenchymal scarring right apex. Follow-up chest x-ray in 1-3 months could be obtained to evaluate stability. 2. No definitive evidence of acute pulmonary infiltrate or consolidation. ? Results for orders placed or performed during the hospital encounter of 05/12/19 ECG 12 lead ?? Narrative ?? [facility] Test Date: 2019-05-12 Pat Name: VALERIA LAKE Department: Room: [id number] Gender: Female [employer] Activities Director: janeth : 1935 Requested By: GAYATRI FULLER Order Number: [id number] Reading MD: Measurements Intervals [place] Rate: 111 P: 34 ND: 145 QRS: 36 QRSD: 72 T: 31 QT: 309 QTc: 420 Interpretive Statements SINUS TACHYCARDIA WITH OCCASIONAL ECTOPIC PREMATURE COMPLEXES POSSIBLE LEFT ATRIAL ENLARGEMENT ABNORMAL RHYTHM ECG No previous ECG available for comparison ? Assessment/Plan: Acute respiratory failure (CMS/HCC) Tobacco abuse Weight loss Gastroesophageal reflux disease without esophagitis Acute respiratory failure with hypoxia:?? Patient admitted to the medical floor Continue oxygen supplement to maintain saturation above 92% Wean off as tolerated, patient not on home oxygen Will need to have an ambulatory O2 study prior to dc ?? Probable COPD exacerbation: CXR with Emphysematous changes. Long HX of tobacco abuse?? Patient does not have diagnosis of COPD but given chest x-ray finding which was discussed with patient and continued smoking, patient advised she will need PFTs as outpatient. Recommend follow up with pulm. Patient started on IV steroid, continue and wean according to clinical eval Patient started on azithromycin, continue Will consult Pulm for recommendations Continue current management, likely home in 24-48 hours HTN No prior dx Start low dose norvasc Monitor and adjust therapies as clinically indicated Pt will need to f/u with PCP, check BP at home and keep a log of this Tobacco Abuse Recommend cessation. Pt. Has not smoked in a week due to SOB, cough. She declines the need for a nicotine patch. GERD Pt. With hx of GERD symptoms. Had bleeding ulcer in the past. Use to take zantac for a while then stopped. Pt. With reflux and nausea. Will add PPI since pt on steroids and increased s/s of GERD. MOUNIKA MIRAMONTES NP 05/15/2019 12:02 PM RY SOUS CHEF * Linda Santos, SURFACE HYDROLOGIST - 05/15/2019 9:38 AM CST Pulmonary Progress Note History Chief Complaint Patient presents with ??? Cough ??? Respiratory Symptoms Valeria Lake is a 83-year-old white female smoker with past medical history of peptic ulcer disease and Sandra-Banegas tear per chart review presented to the emergency department on 05/12/2019 with a 3-week history of increasing respiratory distress. Over the 4 days preceding admission had noted increasing cough with white to green sputum production. Noted wheezing while at rest. Denies following with a primary care physician, denies having ever seen a material requisitioner. 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 CXR 05/12/2019: -Emphysema -Probable right apical scarring 05/15/19: Feeling better overall. Notes dyspnea upon ambulating without oxygen to the bathroom; dyspnea improves with O2 and rest. Notes cough, intermittent wheezing. Patient feels Albuterol neb treatments are beneficial. Notes generalized weakness since onset of recent illness. Past Medical History: Diagnosis Date ??? Fall ??? Gastroesophageal reflux disease without esophagitis 05/14/2019 Hx of GI bleed ??? Vaginal delivery x 3 History reviewed. No pertinent surgical history. Social History Tobacco Use ??? Smoking status: Current Every Day Smoker Packs/day: 1.00 Types: Cigarettes ??? Smokeless tobacco: Never Used Substance Use Topics ??? Alcohol use: Not Currently ??? Drug use: Never No family history on file. ??? azithromycin 250 mg Oral Daily ??? enoxaparin 40 mg Subcutaneous Q24H ??? famotidine 20 mg Oral Daily Or ??? famotidine 20 mg Intravenous Daily ??? fluticasone-salmeterol 2 puff Inhalation Q12H ??? ipratropium-albuterol 3 mL Nebulization 4x daily - RT ??? pantoprazole EC 40 mg Oral Daily ??? predniSONE 40 mg Oral Daily acetaminophen, ipratropium-albuterol, ondansetron No Known Allergies ROS: General: denies fever, chills, night sweats Neuro: notes weakness Psych: denies depression, anxiety Eyes: denies blurry vision ENT: denies epistaxis Neck: denies difficulty swallowing, swelling Chest: denies chest pain, palpitations Resp: notes improvement in sob, wheezing, sputum GI: denies abdominal pain Ext: denies swelling, numbness Skin: denies rash Physical Exam Filed Vitals: 05/14/19 1500 05/14/19 1959 05/15/19 0523 05/15/19 0726 BP: (!) 151/71 (!) 177/98 (!) 175/85 Pulse: 109 110 94 Resp: 17 Temp: 98 ??F (36.7 ??C) 97.6 ??F (36.4 ??C) 97.9 ??F (36.6 ??C) TempSrc: Oral Oral Oral SpO2: 92% 93% 95% 91% Weight: Height: Physical Exam: General: thin wf, pleasant, in NAD Neuro: Alert, appropriate Psych: Affect normal Head: NC, AT EENT: No Sinus tenderness to palpation, mallampati 1 Neck: Supple Lymph: No cervical lymphadenopathy Respiratory: non-labored, diminished bs bilaterally; prolonged expiratory phase, no wheezes/crackles; on O2 at 2L/min Cardiovascular: s1,s2, rrr, no audible murmur GI: soft, non-tender, non-distended, bs+ Musc: right wrist ROM wnl Ext: no edema, no clubbing Skin: No visible rashes Recent Labs Lab 05/13/19 0548 05/14/19 0944 05/15/19 0901 WBC 10.1 19.8* 17.4* RBC 4.07* 4.33 4.40 HGB 12.9 13.4 13.4 HCT 40.0 40.3 41.4 MCV 98.3 93.1 94.1* MCH 31.7* 30.9 30.5 MCHC 32.3 33.3 32.4 PLT 266 386 385 RDW 13.8 13.4 13.5 MPV 10.7 8.5* 8.9* PERNEU 82.9 87.3 80.1 PERLYM 13.0 6.5 9.7 PERMON 3.0 4.5 8.0 LYMC 1.31 1.28 1.68 MONOC 0.30 0.90* 1.40* EOSC 0.00* 0.00* 0.00* BASOC 0.02 0.03 0.05 DTYPE AUTOMATED DIFFERENTIAL AUTOMATED DIFFERENTIAL AUTOMATED DIFFERENTIAL Recent Labs Lab 05/12/19 1058 05/13/19 0548 05/14/19 0944 05/15/19 0901 NA 136 139 140 139 K 3.9 4.2 3.5 3.5 CL 104 109* 107 105 CO2 26.5 26.4 27.6 29.1 AGAP 5.5 3.6* 5.4 4.9* BUN 16 13 17 17 CR 0.71 0.61 0.78 0.83 BUNCREATININ 22.5 21.3 21.7 20.5 GFRNON 80* 85* 71* 66* GFR >90 >90 83* 77* GLU 163* 143* 155* 205* CA 9.2 9.3 9.2 8.8 TP 7.6 6.8 -- -- ALB 2.9* 2.6* -- -- TBIL 0.4 0.3 -- -- ALKP 80 73 -- -- AST 58* 34 -- -- ALT 68* 58* -- -- Recent Labs Lab 05/13/19 0548 INR 1.1 Xr Chest Pa+lat Result Date: 05/12/2019 Examination: XR CHEST PA+LAT Exam time: 05/12/2019 11:10 AM Clinical history: Cough. Shortness of breath. Symptoms for 3 weeks. Comparison: No prior exam Technique: Upright PA and lateral views Findings: There is paucity of peripheral vasculature within the mid and upper lung zones with increase interstitial markings within the lung bases. There is associated increase anterior posterior dimension of the chest with some flattening of each hemidiaphragm. Findings would be most consistent with emphysematous changes. There are no prior chest x- rays available for comparison. There are coarse linear opacities within the superior lateral right hemithorax with some apparent overlying pleural thickenin g. This would be most consistent with chronic pleural and parenchymal scarring. However, follow-up chest x-ray in 1-3 months could be obtained to evaluate stability. No definitive evidence of focal pulmonary consolidation or effusion. Cardiac silhouette and pulmonary vasculature are within normal limits. Atherosclerotic calcifications aortic arch region. IMPRESSION: 1. Emphysematous changes. 2. Probable pleural parenchymal scarring right apex. Follow-up chest x-ray in 1-3 months could be obtained to evaluate stability. 2. No definitive evidence of acute pulmonary infiltrate or consolidation. Assessment 1. Acute hypoxic respiratory failure 2. Acute bronchitis -Likely acute exacerbation of undiagnosed COPD 3. Radiographic emphysema 4. Tobacco abuse 5. Recent weight loss 6. PUD, GERD Plan 1. Supplemental O2 to maintain sats >88% -ambulatory O2 prior to dc 2. Antibiotics: Azithromycin, day 3/5, continue at discharge 3. Wean to PO Prednisone today, continue taper at discharge 4. Nebulizer: Duoneb qid -will need Albuterol HFA at discharge; use QID scheduled and q4h PRN until over exacerbation, then transition to PRN use 5. ICS/LABA -[facility] formulary -rinse mouth and spit after use -obtain lowest cost alternative upon dc; Breo 100, Symbicort 160, Dulera 100; Wixela 250, AirDuo 113 6. Incentive Spirometry 7. Flutter/Acapella 8. Imaging: plan outpatient cxr, prior imaging personally reviewed 9. Encouraged smoking cessation 10. Plan for outpatient pulmonary follow-up -will need PFT, 6MWT, CXR -follow up with ROMINA Hernandez or Dr Wilkinson in 2-3 weeks Linda Santos APRN, ESVINP Cosigned by Floyd Wilkinson MD at 05/15/2019 3:48 PM PASTRY SOUS CHEF RY SOUS CHEF RY SOUS CHEF Associated attestation - Floyd Wilkinson MD - 05/15/2019 3:48 PM PASTRY SOUS CHEF I, FLOYD WILKINSON MD, performed an examination of the patient and discussed the management withthe Advanced Practice Provider (YAW). I reviewed the YAW's progress note and agree with the findings and plan of care, except as I have documented. Ms. Lake seen and examined independently of ACNP. Acute hypoxic respiratory failure, suspected AECOPD. Encouraged smoking cessation; complete abx, steroids; dc with ICS/LABA. Plan close outpatient follow up. Discussed with Ms. Lake and her son. * Kailey Matt Green, PT - 05/14/2019 2:26 PM CST 05/14/19 1415 Therapy Visit Ordering Provider Romero WESLEY PT Received On 05/14/19 Treatment Day 1 Subjective Pt stated she has 15 steps with b/rails to enter apartment and 12 steps with b/rails to basement where she does her laundry once a week. Reason for admission ARF (suspect COPD) Relevant Comorbidities/ Personal Factors to PT PVD, Sandra Banegas tear, bleeding ulcer, GERD Verified Two Patient Identifiers Yes Patient consents to therapy Yes Acute Inpatient PT Time Calculation PT Start Time 1359 PT Stop Time 1414 PT Time Calculation (min) 15 min Precautions Precautions Yes/No Yes General Precautions Bed Alarm;Chair Alarm;Fall Risk;Supplemental oxygen Instructed on Precautions Yes Home Living Type of Home Apartment Home Layout One level;Laundry in basement Home Accessibility Other (Comment) (15 STEPS WITH RAILS TO ENTER. 12 TO BASEMENT LAUNDRY W/RAIL) Prior Function Level of [place] Independent with ADLs;Independent with functional transfers;Independent with ambulation;Independent with homemaking with ambulation Device used at baseline None Baseline Ambulation Distance/Assistance HOUSEHOLD Fall History No Lives With Alone Receives Help From Family Pain Pain No Activity Tolerance Endurance Tolerates 10 - 20 min activity with rests Cognition Overall Cognitive Status WFL Orientation Level Oriented X4 Overall Extremity Assessment Lower Extremity Strength WFL Bed Mobility Rolling Independent Supine to Sit Independent Sit to Supine Independent TRANSFERS Sit to Stand Independent Gait Gait Assistance Min assist Assistive Device None Ambulation Distance (Feet) 100' Other (Comment) 1 L/02 Stairs Other (Comment) Pt has 15 steps with b/rails to enter apt and 12 steps with b/rails to do laundry once a week. Balance Standing - Static Independent Standing - Dynamic Min Assist Patient/Family Training Bed Mobility x Transfer Training x Gait Training x Precautions x Assessment Personal Factors/Comorbidities Impacting Care 3-4 personal factors/comorbidities Examination of Body Systems Moderate (3 or more Elements) Objectives of Body Systems Impaired ambulation;Impaired stair negotiation;Decreased ADL status;Decreased endurance Clinical Presentation of Patient Evolving and changing characteristics Complexity Level of Evaluation Moderate Prognosis Fair PT Assess/Eval Other (Comment) This is an 83 yo female with ARF who presents with decreased endurance. PT needed to increase gt trg and endurance prior to disch. Recommendation PT Recommendation PT during Hospitalization;Home PT Plan PT Treatments/Interventions Gait Training Progress Slow progress, decreased activity tolerance PT Frequency Daily;BID;6 times/week PT plan for next session (gt trg with 02 in hallway and progress to stairs with rails) If this is the last treatment note,it will serve as the discharge summary Yes End of Session Safety End of Session Safety Bed alarm set/activated;Call light within reach;Family/friend present with patient;Nursing aware of session RY SOUS CHEF * Jose Alejandro Graff RN - 05/14/2019 1:23 PM CST Patient does not have a PCP. Provided with [facility] list an instructed re:this is not a complete area list of providers. Also given number for [facility] clinic. RY SOUS CHEF * Mounika Gray NP - 05/14/2019 11:43 AM CST Hospitalist Daily Progress Note Subjective Examined patient while in bed. Unable to wean off O2 last night. She remains on 1 L nc and O2 sat's90%. Still with activity intolerance, intermittent wheezing. O2 Sat's 85-90%. She states she is feeling sick after eating breakfast and only able to tolerate small amount. Pt. Also reports GERD symptoms. She states she took medicine for awhile and it seemed to help but then stopped because it got better and she was afraid of taking it for to long. She also reports hx of bleeding ulcer. Pt. Reports not having a PCP. Will consult SW to help. Review of Systems Constitutional: Positive for malaise/fatigue and weight loss. HENT: Negative for congestion and sore throat. Eyes: Negative. Respiratory: Positive for cough, shortness of breath and wheezing. Negative for sputum production. Cardiovascular: Negative for chest pain and leg swelling. Gastrointestinal: Positive for nausea. Negative for abdominal pain, constipation, diarrhea and vomiting. Poor appetite, poor intake Genitourinary: Negative. Musculoskeletal: Positive for myalgias. Neurological: Positive for dizziness and headaches. Endo/Heme/Allergies: Does not bruise/bleed easily. Psychiatric/Behavioral: Negative. Objective Filed Vitals: 05/14/19 0223 05/14/19 0833 05/14/19 0836 05/14/19 1138 BP: (!) 179/88 Pulse: 108 Resp: 18 Temp: 97.8 ??F (36.6 ??C) TempSrc: Oral SpO2: 90% (!) 85% 90% 90% Weight: Height: Physical Exam: -GENERAL: Awake, pleasant elderly thin female, some mild distress speaking full sentences. -EYES: Extraocular movements intact -ENT: Neck supple, Septum is midline. -LUNG: Diminished breath sounds bilaterally, bilateral expiratory wheezes, No crackles. Rhonchi in RLL -CVS: Regular rate rhythm, S1 and S2 normal, No murmurs, -ABDOMEN: Soft, nondistended, Nontender, Bowel sounds observed -EXT: no lower Ext edema. -NEURO: Alert, awake, oriented x3, No gross neuro deficit -SKIN: Skin color, texture, turgor normal. No rashes or lesions Intake/Output 24H Total: Intake/Output Summary (Last 24 hours) at 05/14/2019 1158 Last data filed at 05/14/2019 1041 Gross per 24 hour Intake 240 ml Output -- Net 240 ml Medication ??? azithromycin 500 mg Oral Daily ??? enoxaparin 40 mg Subcutaneous Q24H ??? [START ON 05/15/2019] famotidine 20 mg Oral Daily Or ??? [START ON 05/15/2019] famotidine 20 mg Intravenous Daily ??? ipratropium-albuterol 3 mL Nebulization 4x daily - RT ??? methylPREDNISolone 40 mg Intravenous BID PRN Meds: acetaminophen, ipratropium-albuterol, ondansetron Labs: Recent Results (from the past 24 hour(s)) BASIC METABOLIC PANEL Collection Time: 05/14/19 9:44 AM Result Value Ref Range GLUCOSE 155 (H) 70 - 99 MG/DL BUN 17 7 - 18 MG/DL CREATININE 0.78 0.55 - 1.02 MG/DL SODIUM 140 136 - 145 MMOL/L POTASSIUM 3.5 3.5 - 5.1 MMOL/L CHLORIDE 107 100 - 108 MMOL/L CO2 27.6 21 - 32 MMOL/L CALCIUM 9.2 8.5 - 10.1 MG/DL ANION GAP 5.4 5 - 15 MMOL/L BUN CREATININE RATIO 21.7 6 - 26 eGFR Non-Afr. Amer. 71 (L) >90 ML/MIN/1.73 M2 eGFR Afr. Amer. 83 (L) >90 ML/MIN/1.73 M2 CBC W/DIFF AUTOMATED Collection Time: 05/14/19 9:44 AM Result Value Ref Range WBC 19.8 (H) 4.5 - 11.0 x10'3/uL RBC 4.33 4.20 - 5.40 x10'6/uL HGB 13.4 12.0 - 16.0 G/DL HCT 40.3 38.0 - 48.0 % MCV 93.1 81.0 - 99.0 FL MCH 30.9 27.0 - 31.0 PG MCHC 33.3 32.0 - 36.0 G/DL RDW 13.4 11.5 - 14.5 % PLT 386 130 - 400 x10'3/uL MPV 8.5 (L) 9.3 - 12.2 FL DIFFERENTIAL TYPE AUTOMATED DIFFERENTIAL NEUTROPHILS 87.3 % LYMPHOCYTES 6.5 % MONOCYTES 4.5 % EOSINOPHILS 0.0 % BASOPHILS 0.2 % IMMATURE GRANS 1.5 % ABS. NEUTROPHILS TOTAL 17.33 (H) 1.80 - 7.70 x10'3/uL ABS. LYMPHOCYTES 1.28 1.00 - 4.80 x10'3/uL ABS. MONOCYTES 0.90 (H) 0.24 - 0.86 x10'3/uL ABS. EOSINOPHILS 0.00 (L) 0.04 - 0.36 x10'3/uL ABS. BASOPHILS 0.03 0.01 - 0.08 x10'3/uL ABS. IMMATURE GRANULOCYTES 0.30 0.00 - 0.49 x10'3/uL X-Ray Xr Chest Pa+lat ?? Result Date: 05/12/2019 ?? IMPRESSION: 1. Emphysematous changes. 2. Probable pleural parenchymal scarring right apex. Follow-up chest x-ray in 1-3 months could be obtained to evaluate stability. 2. No definitive evidence of acute pulmonary infiltrate or consolidation. ? Results for orders placed or performed during the hospital encounter of 05/12/19 ECG 12 lead ?? Narrative ?? 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 Assessment/Plan: Acute respiratory failure (CMS/HCC) Tobacco abuse Weight loss Gastroesophageal reflux disease without esophagitis Acute respiratory failure with hypoxia:?? Patient admitted to the medical floor Continue oxygen supplement to maintain saturation above 92% Wean off as tolerated, patient not on home oxygen Will need to have an ambulatory O2 study prior to dc ?? Probable COPD exacerbation: CXR with Emphysematous changes. Long HX of tobacco abuse?? Patient does not have diagnosis of COPD but given chest x-ray finding which was discussed with patient and continued smoking, patient advised she will need PFTs as outpatient. Recommend follow up with pulm. Patient started on IV steroid, continue and wean according to clinical eval Patient started on azithromycin, continue Will consult Pulm for recommendations Tobacco Abuse Recommend cessation. Pt. Has not smoked in a week due to SOB, cough. She declines the need for a nicotine patch. GERD Pt. With hx of GERD symptoms. Had bleeding ulcer in the past. Use to take zantac for a while then stopped. Pt. With reflux and nausea. Will add PPI since pt on steroids and increased s/s of GERD. MOUNIKA GRAY NP 05/14/2019 11:58 AM Cosigned by Eliza Parker MD at 05/21/2019 9:54 AM PASTRY SOUS CHEF RY SOUS CHEF RY SOUS CHEF * Alyssa Flores RN - 05/14/2019 5:07 AM CST Problem: Discharge Planning Goal: Knowledge of discharge instructions Outcome: Progressing Problem: Activity Intolerance Goal: Improved activity tolerance Outcome: Progressing Problem: Tobacco Use Goal: Knowledge of tobacco-use cessation methods Outcome: Progressing RY SOUS CHEF * Kristie Sivla RN - 05/13/2019 8:44 PM CST Progressing, weening off O2 to return to baseline RY SOUS CHEF * Mounika Gray NP - 05/13/2019 11:27 AM CST Hospitalist Daily Progress Note Subjective Examined patient while in bed. Patient reports shortness of breath and it also increases with activity. She reports that it takes longer to get her breath back after going to the bathroom. Her cough is loose and she states she just cannot bring anything up. She denies CP. She still has no energy. Review of Systems Constitutional: Positive for malaise/fatigue and weight loss. HENT: Negative for congestion and sore throat. Eyes: Negative. Respiratory: Positive for cough, shortness of breath and wheezing. Negative for sputum production. Cardiovascular: Negative for chest pain and leg swelling. Gastrointestinal: Positive for nausea. Negative for abdominal pain, constipation, diarrhea and vomiting. Poor appetite, poor intake Genitourinary: Negative. Musculoskeletal: Positive for myalgias. Neurological: Positive for dizziness and headaches. Endo/Heme/Allergies: Does not bruise/bleed easily. Psychiatric/Behavioral: Negative. Objective Filed Vitals: 05/13/19 0603 05/13/19 0631 05/13/19 0820 05/13/19 1443 BP: (!) 169/64 (!) 163/63 (!) 158/78 Pulse: 88 110 99 Resp: 20 24 22 Temp: 97.8 ??F (36.6 ??C) 97.6 ??F (36.4 ??C) 97.6 ??F (36.4 ??C) TempSrc: Oral Oral Oral SpO2: 94% 94% 93% 91% Weight: 50.8 kg (111 lb 15.9 oz) Height: Physical Exam: -GENERAL: Awake, pleasant elderly thin female, some mild distress speaking full sentences. -EYES: Extraocular movements intact -ENT: Neck supple, Septum is midline. -LUNG: Diminished breath sounds bilaterally, bilateral expiratory wheezes, No crackles. Rhonchi in RLL -CVS: Regular rate rhythm, S1 and S2 normal, No murmurs, -ABDOMEN: Soft, nondistended, Nontender, Bowel sounds observed -EXT: no lower Ext edema. -NEURO: Alert, awake, oriented x3, No gross neuro deficit -SKIN: Skin color, texture, turgor normal. No rashes or lesions Intake/Output 24H Total: Intake/Output Summary (Last 24 hours) at 05/13/2019 1601 Last data filed at 05/13/2019 0820 Gross per 24 hour Intake 240 ml Output -- Net 240 ml Medication ??? azithromycin 500 mg Oral Daily ??? enoxaparin 40 mg Subcutaneous Q24H ??? famotidine 20 mg Intravenous Daily Or ??? famotidine 20 mg Oral Daily ??? ipratropium-albuterol 3 mL Nebulization 4x daily - RT ??? methylPREDNISolone 40 mg Intravenous 3 times per day PRN Meds: acetaminophen, ipratropium-albuterol, ondansetron Labs: Recent Results (from the past 24 hour(s)) CBC W/DIFF AUTOMATED Collection Time: 05/13/19 5:48 AM Result Value Ref Range WBC 10.1 4.5 - 11.0 x10'3/uL RBC 4.07 (L) 4.20 - 5.40 x10'6/uL HGB 12.9 12.0 - 16.0 G/DL HCT 40.0 38.0 - 48.0 % MCV 98.3 81.0 - 99.0 FL MCH 31.7 (H) 27.0 - 31.0 PG MCHC 32.3 32.0 - 36.0 G/DL RDW 13.8 11.5 - 14.5 % PLT 266 130 - 400 x10'3/uL MPV 10.7 9.3 - 12.2 FL DIFFERENTIAL TYPE AUTOMATED DIFFERENTIAL NEUTROPHILS 82.9 % LYMPHOCYTES 13.0 % MONOCYTES 3.0 % EOSINOPHILS 0.0 % BASOPHILS 0.2 % IMMATURE GRANS 0.9 % ABS. NEUTROPHILS TOTAL 8.39 (H) 1.80 - 7.70 x10'3/uL ABS. LYMPHOCYTES 1.31 1.00 - 4.80 x10'3/uL ABS. MONOCYTES 0.30 0.24 - 0.86 x10'3/uL ABS. EOSINOPHILS 0.00 (L) 0.04 - 0.36 x10'3/uL ABS. BASOPHILS 0.02 0.01 - 0.08 x10'3/uL ABS. IMMATURE GRANULOCYTES 0.09 0.00 - 0.49 x10'3/uL PROTHROMBIN TIME, VENOUS Collection Time: 05/13/19 5:48 AM Result Value Ref Range Protime 12.7 (H) 9.6 - 12.2 SEC INR 1.1 MAGNESIUM Collection Time: 05/13/19 5:48 AM Result Value Ref Range MAGNESIUM 2.3 1.8 - 2.4 MG/DL HEMOGLOBIN, GLYCOSYLATED Collection Time: 05/13/19 5:48 AM Result Value Ref Range HGB A1C 5.9 4.2 - 6.3 % ESTIMATED AVERAGE GLUCOSE 123 mg/dL COMPREHENSIVE METABOLIC PANEL Collection Time: 05/13/19 5:48 AM Result Value Ref Range GLUCOSE 143 (H) 70 - 99 MG/DL BUN 13 7 - 18 MG/DL CREATININE 0.61 0.55 - 1.02 MG/DL SODIUM 139 136 - 145 MMOL/L POTASSIUM 4.2 3.5 - 5.1 MMOL/L CHLORIDE 109 (H) 100 - 108 MMOL/L CO2 26.4 21 - 32 MMOL/L CALCIUM 9.3 8.5 - 10.1 MG/DL TOTAL BILIRUBIN 0.3 0.2 - 1.2 MG/DL TOTAL PROTEIN 6.8 6.4 - 8.2 G/DL ALBUMIN 2.6 (L) 3.4 - 5.0 G/DL AST 34 15 - 37 U/L ALT 58 (H) 14 - 55 U/L ALK PHOS 73 50 - 136 U/L ANION GAP 3.6 (L) 5 - 15 MMOL/L BUN CREATININE RATIO 21.3 6 - 26 A/G RATIO 0.6 (L) 1.0 - 2.0 RATIO eGFR Non-Afr. Amer. 85 (L) >90 ML/MIN/1.73 M2 eGFR Afr. Amer. >90 >90 ML/MIN/1.73 M2 LIPID PANEL Collection Time: 05/13/19 5:48 AM Result Value Ref Range CHOLESTEROL 103 <200 MG/DL TRIGLYCERIDE 79 <150 MG/DL HDL 37 (L) >40.0 MG/DL LDL (CALCULATED) 50 <100 MG/DL NON HDL CHOLESTEROL 66 <130 MG/DL CHOL/HDL RATIO 2.8 0.0 - 4.5 VLDL Calculation 16 5 - 55 MG/DL LIPID INTERPRETATION X-Ray Xr Chest Pa+lat ?? Result Date: 05/12/2019 ?? IMPRESSION: 1. Emphysematous changes. 2. Probable pleural parenchymal scarring right apex. Follow-up chest x-ray in 1-3 months could be obtained to evaluate stability. 2. No definitive evidence of acute pulmonary infiltrate or consolidation. ? Results for orders placed or performed during the hospital encounter of 05/12/19 ECG 12 lead ?? Narrative ?? [facility] Test Date: 2019-05-12 Pat Name: VALERIA LAKE Department: Room: [place] [address] Gender: Female [employer] Day[employer] Activities Director: janeth : 1935 Requested By: GAYATRI FULLER Order Number: [id number] Reading MD: Measurements Intervals [place] Rate: 111 P: 34 ND: 145 QRS: 36 QRSD: 72 T: 31 QT: 309 QTc: 420 Interpretive Statements SINUS TACHYCARDIA WITH OCCASIONAL ECTOPIC PREMATURE COMPLEXES POSSIBLE LEFT ATRIAL ENLARGEMENT ABNORMAL RHYTHM ECG No previous ECG available for comparison ? Assessment/Plan: Acute respiratory failure (CMS/HCC) Tobacco abuse Weight loss Acute respiratory failure with hypoxia:?? Patient admitted to the medical floor Continue oxygen supplement to maintain saturation above 92% Wean off as tolerated, patient not on home oxygen Will need to have an ambulatory O2 study prior to dc ?? Probable COPD exacerbation: CXR with Emphysematous changes. Long HX of tobacco abuse?? Patient does not have diagnosis of COPD but given chest x-ray finding which was discussed with patient and continued smoking, patient advised she will need PFTs as outpatient Patient started on IV steroid, continue Patient started on azithromycin, continue Tobacco Abuse Recommend cessation. Pt. Has not smoked in a week due to SOB, cough. She declines the need for a nicotine patch. MOUNIKA GRAY NP 05/13/2019 4:01 PM Cosigned by Italo Zamorano MD at 05/14/2019 1:27 AM PASTRY SOUS CHEF RY SOUS CHEF RY SOUS CHEF * Ally Castillo RN - 05/12/2019 7:48 PM CST Problem: Discharge Planning Goal: Knowledge of discharge instructions Outcome: Progressing Problem: Activity Intolerance Goal: Improved activity tolerance Outcome: Progressing Problem: Tobacco Use Goal: Knowledge of tobacco-use cessation methods Outcome: Progressing New admission, patient education, will continue to follow up RY SOUS CHEF * Shameka Swan LCSW - 05/12/2019 1:50 PM CST RN TESTING met with pt and family at bedside to discuss d/c planning. Pt lives in her own home alone, but son and grandchildren are in the area to provide support. Pt states son provides most transportationand will be able to provide ride home from hospital at d/c. Pt sometimes uses a cane and denies anyother DME in home. Pt has not used HHC in the past and uses [facility] pharmacy in [place]. Pt does not anticipate needs at time of d/c. 05/12/19 1350 Referral Data Referral Reason Discharge Planning Source of Information Patient Patient Information Primary Caregiver Self Support System Immediate family Baseline ADL's Functional Status Independent Living Arrangements Spouse/significant other;Children Type of Residence Private residence Behavior Oriented Communication Talks;Understands speaking;Understands Albanian RY SOUS CHEF documented in this encounter H&P Notes * Rodrigue Sylvester MD - 05/12/2019 1:37 PM CST Hospitalist History and Physical Patient: Valeria Lake Date: 05/12/2019 female, 83-year-old Admit Date: 05/12/2019 Attending: Rodrigue Sylvester MD REASON FOR ADMISSION: Acute respiratory failure HISTORY OF PRESENT ILLNESS: Valeria Lake is a 83-year-old female With past medical history significant for peptic ulcer disease, Sandra-Banegas tear, who presents to our ER secondary to worsening shortness of breath over the last 4 days worsened with exertion, associated with productive cough with yellowish phlegm, subjective fever, chills and rigors, patient denied any chest pain, ported lack of energy and fatigability, creased appetite, patient denied any COPD or emphysema, had a PFT 30 years ago but does not have a PCP at the current time, in the ER patient was evaluated and had to be placed on oxygen secondary to hypoxia, when patient was taken off oxygen her saturation would drop to high 80s, patient was given IV Solu-Medrol and azithromycin and get admitted for further evaluation and treatment. Allergy No Known Allergies Medication list (Not in a hospital admission) No current facility-administered medications on file prior to encounter. No current outpatient medications on file prior to encounter. Past Medical History Past Medical History: Diagnosis Date ??? Fall ??? Vaginal delivery x 3 History reviewed. No pertinent surgical history. Social History Social History Socioeconomic History ??? [...] on file Tobacco Use ??? Smoking status: Current Every [...] file Gets together: Not on file Attends taoist service: Not on file Active member of [...] Narrative ??? Not on file Family History Mother: Uterine cancer Father: Liver cirrhosis REVIEW OF SYSTEMS: A 14 point review of systems was taken and pertinent positive as per HPI PHYSICAL EXAMINATION: Vital 24 Hour Range Most Recent Value Temperature Temp Min: 98.2 ??F (36.8 ??C) Max: 98.2 ??F (36.8 ??C) 98.2 ??F (36.8 ??C) Pulse Pulse Min: 108 Max: 129 108 Respiratory Resp Min: 20 Max: 22 20 Blood Pressure BP Min: 158/90 Max: 160/87 (!) 160/87 Pulse Oximetry SpO2 Min: 91 % Max: 100 % 100 % O2 O2 Flow Rate (L/min) Av L/min Min: 3 L/min Min taken time: 05/12/19 1141 Max: 3 L/min Max taken time: 05/12/19 1141 Vital Most Recent Value First Value Weight 47.2 kg (104 lb) Weight: 47.2 kg (104 lb) Height 5' 5 (165.1 cm) Height: 5' 5 (165.1 cm) BMI 17.3 N/A Physical Exam: -GENERAL: No acute distress, breathing comfortably on nasal cannula. -EYES: Extraocular movements intact -ENT: Neck supple, Septum is midline. -LUNG: Diminished breath sounds bilaterally, bilateral expiratory wheezes, No crackles -CVS: Regular rate rhythm, S1 and S2 normal, No murmurs, -ABDOMEN: Soft, nondistended, Nontender, Bowel sounds observed -EXT: no lower Ext edema. -NEURO: Alert, awake, oriented x3, No gross neuro deficit -SKIN: Skin color, texture, turgor normal. No rashes or lesions Intake/Output last 3 shifts: No intake/output data recorded. Labs: Recent Labs Lab 05/12/19 1058 NA 136 K 3.9 CL 104 CO2 26.5 AGAP 5.5 BUN 16 CR 0.71 BUNCREATININ 22.5 GFRNON 80* GFR >90 GLU 163* CA 9.2 Recent Labs Lab 05/12/19 1058 WBC 12.6* RBC 4.24 HGB 12.9 HCT 39.2 MCV 92.5 MCH 30.4 MCHC 32.9 PLT 329 RDW 13.3 MPV 8.9* Recent Labs Lab 05/12/19 1058 AST 58* ALT 68* No results for input(s): INR, PTT in the last 168 hours. Invalid input(s): ABG arterial blood gases Recent Labs Lab 05/12/19 1100 TROP <0.015 No results for input(s): PH, PCO2, PO2, [id number], BICARBWB, BASEDEFICIT, BASEEXCESS in the [id number] hours. Imagining & Other Studies Xr Chest Pa+lat Result Date: 05/12/2019 IMPRESSION: 1. Emphysematous changes. 2. Probable pleural parenchymal scarring right apex. Follow-up chest x-ray in 1-3 months could be obtained to evaluate stability. 2. No definitive evidence of acute pulmonary infiltrate or consolidation. 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: nd : 1935 Requested By: GAYATRI FULLER Order Number: [id number] Reading MD: Measurements Intervals [place] Rate: 111 P: 34 ND: 145 QRS: 36 QRSD: 72 T: 31 QT: 309 QTc: 420 Interpretive Statements SINUS TACHYCARDIA WITH OCCASIONAL ECTOPIC PREMATURE COMPLEXES POSSIBLE LEFT ATRIAL ENLARGEMENT ABNORMAL RHYTHM ECG No previous ECG available for comparison Assessment & Plan Acute respiratory failure with hypoxia: Patient admitted to the medical floor Continue oxygen supplement to maintain saturation above 92% Wean off as tolerated, patient not on home oxygen Probable COPD exacerbation: Patient does not have diagnosis of COPD but given chest x-ray finding which was discussed with patient and continued smoking, patient advised she will need PFTs as outpatient Patient started on steroid, continue Patient started on azithromycin, continue Rodrigue Sylvester MD 05/12/2019 1:37 PM RY SOUS CHEF documented in this encounter Consult Notes * Floyd Wilkinson MD - 05/14/2019 5:50 PM CST Pulmonary Consultation Note History Chief Complaint Patient presents with ??? Cough ??? Respiratory Symptoms Valeria Lake is a 83-year-old white female smoker with past medical history of peptic ulcer disease and Sandra-Banegas tear per chart review presented to the emergency department on 05/12/2019 with a 3-week history of increasing respiratory distress. Over the 4 days preceding admission had noted increasing cough with white to green sputum production. Noted wheezing while at rest. Denies following with a primary care physician, denies having ever seen a material requisitioner. 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 Fall ??? Gastroesophageal reflux disease without esophagitis 05/14/2019 Hx of GI bleed ??? Vaginal delivery x 3 History reviewed. No pertinent surgical history. Social History Tobacco Use ??? Smoking status: Current Every Day Smoker Packs/day: 1.00 Types: Cigarettes ??? Smokeless tobacco: Never Used Substance Use Topics ??? Alcohol use: Not Currently ??? Drug use: Never No family history on file. ??? azithromycin 500 mg Oral Daily ??? enoxaparin 40 mg Subcutaneous Q24H ??? [START ON 05/15/2019] famotidine 20 mg Oral Daily Or ??? [START ON 05/15/2019] famotidine 20 mg Intravenous Daily ??? ipratropium-albuterol 3 mL Nebulization 4x daily - RT ??? methylPREDNISolone 40 mg Intravenous BID ??? pantoprazole EC 40 mg Oral Daily acetaminophen, ipratropium-albuterol, ondansetron No Known Allergies ROS: General: denies fever, chills, night sweats Neuro: denies weakness Psych: denies depression, anxiety Eyes: denies blurry vision ENT: denies epistaxis Neck: denies difficulty swallowing, swelling Chest: denies chest pain, palpitations Resp: notes improvement in sob, wheezing, sputum GI: denies abdominal pain Ext: denies swelling, numbness Skin: denies rash Physical Exam Filed Vitals: 05/14/19 0836 05/14/19 1138 05/14/19 1348 05/14/19 1500 BP: (!) 168/79 (!) 151/71 Pulse: 103 109 Resp: 18 Temp: 97.5 ??F (36.4 ??C) 98 ??F (36.7 ??C) TempSrc: Oral Oral SpO2: 90% 90% 93% 92% Weight: Height: Physical Exam: General: thin wf, pleasant, in NAD Neuro: Alert, appropriate Psych: Affect normal Head: NC, AT EENT: No Sinus tenderness to palpation, mallampati 1 Neck: Supple Lymph: No cervical lymphadenopathy Respiratory: non-labored, diminished bs bilaterally; prolonged expiratory phase, no wheezes/crackles Cardiovascular: s1,s2, rrr, no audible murmur GI: soft, non-tender, non-distended, bs+ Musc: right wrist ROM wnl Ext: no edema, no clubbing Skin: No visible rashes Recent Labs Lab 05/12/19 1058 05/13/19 0548 05/14/19 0944 WBC 12.6* 10.1 19.8* RBC 4.24 4.07* 4.33 HGB 12.9 12.9 13.4 HCT 39.2 40.0 40.3 MCV 92.5 98.3 93.1 MCH 30.4 31.7* 30.9 MCHC 32.9 32.3 33.3 PLT 329 266 386 RDW 13.3 13.8 13.4 MPV 8.9* 10.7 8.5* PERNEU 74.4 82.9 87.3 PERLYM 13.5 13.0 6.5 PERMON 11.3 3.0 4.5 LYMC 1.70 1.31 1.28 MONOC 1.42* 0.30 0.90* EOSC 0.00* 0.00* 0.00* BASOC 0.02 0.02 0.03 DTYPE AUTOMATED DIFFERENTIAL AUTOMATED DIFFERENTIAL AUTOMATED DIFFERENTIAL Recent Labs Lab 05/12/19 1058 05/13/19 0548 05/14/19 0944 NA 136 139 140 K 3.9 4.2 3.5 CL 104 109* 107 CO2 26.5 26.4 27.6 AGAP 5.5 3.6* 5.4 BUN 16 13 17 CR 0.71 0.61 0.78 BUNCREATININ 22.5 21.3 21.7 GFRNON 80* 85* 71* GFR >90 >90 83* GLU 163* 143* 155* CA 9.2 9.3 9.2 TP 7.6 6.8 -- ALB 2.9* 2.6* -- TBIL 0.4 0.3 -- ALKP 80 73 -- AST 58* 34 -- ALT 68* 58* -- Recent Labs Lab 05/13/19 0548 INR 1.1 Xr Chest Pa+lat Result Date: 05/12/2019 Examination: XR CHEST PA+LAT Exam time: 05/12/2019 11:10 AM Clinical history: Cough. Shortness of breath. Symptoms for 3 weeks. Comparison: No prior exam Technique: Upright PA and lateral views Findings: There is paucity of peripheral vasculature within the mid and upper lung zones with increase interstitial markings within the lung bases. There is associated increase anterior posterior dimension of the chest with some flattening of each hemidiaphragm. Findings would be most consistent with emphysematous changes. There are no prior chest x- rays available for comparison. There are coarse linear opacities within the superior lateral right hemithorax with some apparent overlying pleural thickenin g. This would be most consistent with chronic pleural and parenchymal scarring. However, follow-up chest x-ray in 1-3 months could be obtained to evaluate stability. No definitive evidence of focal pulmonary consolidation or effusion. Cardiac silhouette and pulmonary vasculature are within normal limits. Atherosclerotic calcifications aortic arch region. IMPRESSION: 1. Emphysematous changes. 2. Probable pleural parenchymal scarring right apex. Follow-up chest x-ray in 1-3 months could be obtained to evaluate stability. 2. No definitive evidence of acute pulmonary infiltrate or consolidation. Assessment 1. Acute hypoxic respiratory failure 2. Acute bronchitis -Likely acute exacerbation of undiagnosed COPD 3. Radiographic emphysema 4. Tobacco abuse 5. Recent weight loss 6. PUD, GERD Plan 1. Supplemental O2 to maintain sats >88% -ambulatory O2 prior to dc 2. Antibiotics: Azithromycin, day 05/14 3. DC methylprednisolone; start PO prednisone tomorrow 4. Nebulizer: Duoneb qid 5. Start ICS/LABA -Advair formulary -obtain lowest cost alternative upon dc; Breo 100, Symbicort 160, Dulera 100; Wixela 250, AirDuo 113 6. Incentive Spirometry 7. Flutter/Acapella 8. Imaging: plan outpatient cxr, prior imaging personally reviewed 9. Encouraged smoking cessation 10. Plan for outpatient pulmonary follow-up; will need PFT, 6MWT FLOYD WILKINSON MD RY SOUS CHEF * Genoveva Suarez, RD - 05/13/2019 2:30 PM CST A: Pt seen this date for MST of 2, 2-13# weight loss related to loss of appetite and low BMI, 18.64. Dx of acute respiratory failure. PMH includes tobacco abuse, COPD. General diet ordered with intake noted to be 95%. Labs reviewed; albumin @2.6. Medications reviewed. Pt states UBW of 122#; @91% UBW. She stated that food 'didn't taste' therefore she didn't eat much. Food now has taste and her intake has improved. Generally drinks CIB for breakfast then fixes larger meal mid-afternoon and eats ice cream before she goes to bed. She does not drink Ensure and is not interested in starting at thistime. Encouraged her to eat small, frequent meals to improve kcal intake and/or drink CIB with ice cream in the evening. She was unaware that she could drink more than 1 CIB daily. Estimated nutritional needs are approximately 1665-1762kcal, for slight weight gain, 51g protein, 1665cc fluid. D: Involuntary weight loss related to loss of taste in foods as evidenced by 11# weight loss from UBW. I: Goal is for intake to remain >75% of meals. Diet education conducted this date. Diet is appropriate; pt may also benefit from 2-3gm Na restriction due to dx/PMH. Monitor intake, weight, labs. M/E: She is at moderate nutritional risk with f/u 05-20-19. Goal is for intake to remain >75% of meals. Monitor intake, weight, labs. RY SOUS CHEF documented in this encounter ED Notes * Suzanne Worley, NURSING CLINICAL DIRECTOR-BC - 05/12/2019 12:31 PM CST Emergency Department Assumed Care Note Patient signed out to me by Fabiola Fuller NP Briefly, Valeria Lake is a 83-year-old female is being evaluated for SOB, cough, and fatigue that has been worsening over the past few days. Pt reports A long history of smoking. She denies anyprevious diagnosis of COPD or use of inhalers at home. Vitals: 05/12/19 1200 BP: (!) 160/87 Pulse: 108 Resp: 20 Temp: SpO2: 100% Thus far, studies reveal: Slight leukocytosis. Negative influenza swab, negative troponin, negativeBNP. Lactic acid within normal limits. Pending studies include: Procalcitonin and blood cultures. Plan from sign out is: To evaluate for pneumonia versus COPD exacerbation. Progress notes: Chest x-ray negative for pneumonia. Emphysematous changes noted. Will reevaluate patient after DuoNeb and discuss for possible discharge home with treatment as COPD exacerbation and close follow-up with PCP. ED Course as of May 12 1313 Mon May 12, 2019 1247 1147--patient with continued oxygen requirement. She is currently on 3 L. When stop she immediately dropped to 89%. She also becomes tachypneic with respiratory rate between 24 and 28 breaths a minute. Discussed plans for admission with the patient. She is agreeable at this time. Community coverage page. [MP] [phone]--Dr Hernandez returned page. Agrees with plans for admission to medical bed. Pt is aware and agreeable. [MP] ED Course User Index [MP] Suzanne Conte Tiana [facility] Clinical impression: SNOMED CT(R) 1. COPD with acute exacerbation (CMS/HCC) ACUTE EXACERBATION OF CHRONIC OBSTRUCTIVE AIRWAYS DISEASE 2. Hypoxia HYPOXIA Disposition: Admit SUZANNE F KAREN WORLEY 05/12/[address] [facility] 05/12/19 1313 Cosigned by Es Raymond MD at 05/12/2019 1:43 PM PASTRY SOUS CHEF RY SOUS CHEF RY SOUS CHEF * Gayatri Fuller, [facility] - 05/12/2019 11:15 AM CSTAssociated Order(s): EKG Reading [place], [place] EMERGENCY DEPARTMENT ENCOUNTER Chief Complaint Chief Complaint Patient presents with ??? Cough ??? Respiratory Symptoms History of Present Illness Provider at Bedside None Valeria [place] is a 83-year-old female presents to ED for evaluation of cough for the last 3 days. Also c/o shortness of breath, fatigue, postnasal drip, decreased appetite, subjective fever and chills. States she has had cold- like symptoms for the last week. She lives on the second floor of her apartment building and noticed fatigue and shortness of breath after walking down the stairs to doher laundry yesterday. Denies chest pain or leg swelling. Pt admits to smoking. Medical History ALLERGIES: No Known Allergies MEDICATIONS: Prior to Admission medications Not on File PAST MEDICAL HISTORY: Past Medical History: Diagnosis [...] Never Review of Systems Review of Systems Constitutional: Positive for appetite change (decreased), chills, fatigue and fever (subjective). HENT: Positive for postnasal drip. Negative for congestion, sinus pain and sore throat. Eyes: Negative for pain and redness. Respiratory: Positive for cough and shortness of breath. Negative for chest tightness and wheezing. Cardiovascular: Negative for chest pain and leg swelling. Gastrointestinal: Negative for abdominal pain, constipation, diarrhea, nausea and vomiting. Musculoskeletal: Negative for arthralgias and joint swelling. Skin: Negative for rash and wound. Neurological: Negative for headaches. Psychiatric/Behavioral: Negative for agitation. The patient is not nervous/anxious. See HPI for further details. All systems negative except as marked. Physical Exam Filed Vitals: 05/14/19 0836 05/14/19 1138 05/14/19 1348 05/14/19 1500 BP: (!) 168/79 (!) 151/71 Pulse: 103 109 Resp: 18 17 Temp: 97.5 ??F (36.4 ??C) 98 ??F (36.7 ??C) TempSrc: Oral Oral SpO2: 90% 90% 93% 92% Weight: Height: Physical Exam Constitutional: She is oriented to person, place, and time. She appears well- developed and well-nourished. HENT: Head: Normocephalic. Right Ear: External ear normal. Left Ear: External ear normal. Nose: Nose normal. Mouth/Throat: Oropharynx is clear and moist. Fluid behind bilateral TM Eyes: Pupils are equal, round, and reactive to light. Conjunctivae and EOM are normal. Neck: Normal range of motion. Neck supple. Cardiovascular: Regular rhythm, normal heart sounds and intact distal pulses. Tachycardia present. Pulmonary/Chest: Effort normal. She has no wheezes. Lung sounds tight, diminished Abdominal: Soft. Bowel sounds are normal. Musculoskeletal: Normal range of motion. Neurological: She is alert and oriented to person, place, and time. Skin: Skin is warm and dry. Capillary refill takes less than 2 seconds. Psychiatric: She has a normal mood and affect. Her behavior is normal. Judgment and thought contentnormal. Nursing note and vitals reviewed. Diagnostic Studies / Procedures ELECTROCARDIOGRAMS: Results for orders placed or performed during the hospital encounter of 05/12/19 ECG [address] 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 Nunez Sinus tachycardia rhythm, rate of 111 bpm. LABORATORY STUDIES: Results for orders placed or performed during the hospital encounter of 05/12/19 CBC W/DIFF AUTOMATED Result Value Ref Range WBC 12.6 (H) 4.5 - 11.0 x10'3/uL RBC 4.24 4.20 - 5.40 x10'6/uL HGB 12.9 12.0 - 16.0 G/DL HCT 39.2 38.0 - 48.0 % MCV 92.5 81.0 - 99.0 FL MCH 30.4 27.0 - 31.0 PG MCHC 32.9 32.0 - 36.0 G/DL RDW 13.3 11.5 - 14.5 % PLT 329 130 - 400 x10'3/uL MPV 8.9 (L) 9.3 - 12.2 FL DIFFERENTIAL TYPE AUTOMATED DIFFERENTIAL NEUTROPHILS 74.4 % LYMPHOCYTES 13.5 % MONOCYTES 11.3 % EOSINOPHILS 0.0 % BASOPHILS 0.2 % IMMATURE GRANS 0.6 % ABS. NEUTROPHILS TOTAL 9.40 (H) 1.80 - 7.70 x10'3/uL ABS. LYMPHOCYTES 1.70 1.00 - 4.80 x10'3/uL ABS. MONOCYTES 1.42 (H) 0.24 - 0.86 x10'3/uL ABS. EOSINOPHILS 0.00 (L) 0.04 - 0.36 x10'3/uL ABS. BASOPHILS 0.02 0.01 - 0.08 x10'3/uL ABS. IMMATURE GRANULOCYTES 0.08 0.00 - 0.49 x10'3/uL COMPREHENSIVE METABOLIC PANEL Result Value Ref Range GLUCOSE 163 (H) 70 - 99 MG/DL BUN 16 7 - 18 MG/DL CREATININE 0.71 0.55 - 1.02 MG/DL SODIUM 136 136 - 145 MMOL/L POTASSIUM 3.9 3.5 - 5.1 MMOL/L CHLORIDE 104 100 - 108 MMOL/L CO2 26.5 21 - 32 MMOL/L CALCIUM 9.2 8.5 - 10.1 MG/DL TOTAL BILIRUBIN 0.4 0.2 - 1.2 MG/DL TOTAL PROTEIN 7.6 6.4 - 8.2 G/DL ALBUMIN 2.9 (L) 3.4 - 5.0 G/DL AST 58 (H) 15 - 37 U/L ALT 68 (H) 14 - 55 U/L ALK PHOS 80 50 - 136 U/L ANION GAP 5.5 5 - 15 MMOL/L BUN CREATININE RATIO 22.5 6 - 26 A/G RATIO 0.6 (L) 1.0 - 2.0 RATIO eGFR Non-Afr. Amer. 80 (L) >90 ML/MIN/1.73 M2 eGFR Afr. Amer. >90 >90 ML/MIN/1.73 M2 LACTIC ACID Result Value Ref Range LACTIC ACID 1.6 0.4 - 2.0 MMOL/L BNP Result Value Ref Range B TYPE NATRIURETIC PEPTIDE 95 <100 PG/ML TROPONIN, QUANT Result Value Ref Range TROPONIN I <0.015 <0.045 ng/mL. PROCALCITONIN (PCT) Result Value Ref Range Procalcitonin 0.15 <0.5 NG/ML CBC W/DIFF AUTOMATED Result Value Ref Range WBC 10.1 4.5 - 11.0 x10'3/uL RBC 4.07 (L) 4.20 - 5.40 x10'6/uL HGB 12.9 12.0 - 16.0 G/DL HCT 40.0 38.0 - 48.0 % MCV 98.3 81.0 - 99.0 FL MCH 31.7 (H) 27.0 - 31.0 PG MCHC 32.3 32.0 - 36.0 G/DL RDW 13.8 11.5 - 14.5 % PLT 266 130 - 400 x10'3/uL MPV 10.7 9.3 - 12.2 FL DIFFERENTIAL TYPE AUTOMATED DIFFERENTIAL NEUTROPHILS 82.9 % LYMPHOCYTES 13.0 % MONOCYTES 3.0 % EOSINOPHILS 0.0 % BASOPHILS 0.2 % IMMATURE GRANS 0.9 % ABS. NEUTROPHILS TOTAL 8.39 (H) 1.80 - 7.70 x10'3/uL ABS. LYMPHOCYTES 1.31 1.00 - 4.80 x10'3/uL ABS. MONOCYTES 0.30 0.24 - 0.86 x10'3/uL ABS. EOSINOPHILS 0.00 (L) 0.04 - 0.36 x10'3/uL ABS. BASOPHILS 0.02 0.01 - 0.08 x10'3/uL ABS. IMMATURE GRANULOCYTES 0.09 0.00 - 0.49 x10'3/uL PROTHROMBIN TIME, VENOUS Result Value Ref Range Protime 12.7 (H) 9.6 - 12.2 SEC INR 1.1 MAGNESIUM Result Value Ref Range MAGNESIUM 2.3 1.8 - 2.4 MG/DL HEMOGLOBIN, GLYCOSYLATED Result Value Ref Range HGB A1C 5.9 4.2 - 6.3 % ESTIMATED AVERAGE GLUCOSE 123 mg/dL COMPREHENSIVE METABOLIC PANEL Result Value Ref Range GLUCOSE 143 (H) 70 - 99 MG/DL BUN 13 7 - 18 MG/DL CREATININE 0.61 0.55 - 1.02 MG/DL SODIUM 139 136 - 145 MMOL/L POTASSIUM 4.2 3.5 - 5.1 MMOL/L CHLORIDE 109 (H) 100 - 108 MMOL/L CO2 26.4 21 - 32 MMOL/L CALCIUM 9.3 8.5 - 10.1 MG/DL TOTAL BILIRUBIN 0.3 0.2 - 1.2 MG/DL TOTAL PROTEIN 6.8 6.4 - 8.2 G/DL ALBUMIN 2.6 (L) 3.4 - 5.0 G/DL AST 34 15 - 37 U/L ALT 58 (H) 14 - 55 U/L ALK PHOS 73 50 - 136 U/L ANION GAP 3.6 (L) 5 - 15 MMOL/L BUN CREATININE RATIO 21.3 6 - 26 A/G RATIO 0.6 (L) 1.0 - 2.0 RATIO eGFR Non-Afr. Amer. 85 (L) >90 ML/MIN/1.73 M2 eGFR Afr. Amer. >90 >90 ML/MIN/1.73 M2 LIPID PANEL Result Value Ref Range CHOLESTEROL 103 <200 MG/DL TRIGLYCERIDE 79 <150 MG/DL HDL 37 (L) >40.0 MG/DL LDL (CALCULATED) 50 <100 MG/DL NON HDL CHOLESTEROL 66 <130 MG/DL CHOL/HDL RATIO 2.8 0.0 - 4.5 VLDL Calculation 16 5 - 55 MG/DL LIPID INTERPRETATION BASIC METABOLIC PANEL Result Value Ref Range GLUCOSE 155 (H) 70 - 99 MG/DL BUN 17 7 - 18 MG/DL CREATININE 0.78 0.55 - 1.02 MG/DL SODIUM 140 136 - 145 MMOL/L POTASSIUM 3.5 3.5 - 5.1 MMOL/L CHLORIDE 107 100 - 108 MMOL/L CO2 27.6 21 - 32 MMOL/L CALCIUM 9.2 8.5 - 10.1 MG/DL ANION GAP 5.4 5 - 15 MMOL/L BUN CREATININE RATIO 21.7 6 - 26 eGFR Non-Afr. Amer. 71 (L) >90 ML/MIN/1.73 M2 eGFR Afr. Amer. 83 (L) >90 ML/MIN/1.73 M2 CBC W/DIFF AUTOMATED Result Value Ref Range WBC 19.8 (H) 4.5 - 11.0 x10'3/uL RBC 4.33 4.20 - 5.40 x10'6/uL HGB 13.4 12.0 - 16.0 G/DL HCT 40.3 38.0 - 48.0 % MCV 93.1 81.0 - 99.0 FL MCH 30.9 27.0 - 31.0 PG MCHC 33.3 32.0 - 36.0 G/DL RDW 13.4 11.5 - 14.5 % PLT 386 130 - 400 x10'3/uL MPV 8.5 (L) 9.3 - 12.2 FL DIFFERENTIAL TYPE AUTOMATED DIFFERENTIAL NEUTROPHILS 87.3 % LYMPHOCYTES 6.5 % MONOCYTES 4.5 % EOSINOPHILS 0.0 % BASOPHILS 0.2 % IMMATURE GRANS 1.5 % ABS. NEUTROPHILS TOTAL 17.33 (H) 1.80 - 7.70 x10'3/uL ABS. LYMPHOCYTES 1.28 1.00 - 4.80 x10'3/uL ABS. MONOCYTES 0.90 (H) 0.24 - 0.86 x10'3/uL ABS. EOSINOPHILS 0.00 (L) 0.04 - 0.36 x10'3/uL ABS. BASOPHILS 0.03 0.01 - 0.08 x10'3/uL ABS. IMMATURE GRANULOCYTES 0.30 0.00 - 0.49 x10'3/uL CULTURE, BACTERIA, BLOOD Result Value Ref Range Spec. Description BLOOD Special Requests: FOREARM LEFT Culture Result: NO GROWTH 2 DAYS CULTURE, BACTERIA, BLOOD Result Value Ref Range Spec. Description BLOOD Special Requests: RAC Culture Result: NO GROWTH 2 DAYS INFLUENZA A & B Result Value Ref Range Specimen Type NASAL INFLUENZA A NEGATIVE NEGATIVE INFLUENZA B NEGATIVE NEGATIVE IMAGING STUDIES XR CHEST PA+LAT Final Result by User, [id number] (05/12 1207) Examination: XR CHEST PA+LAT Exam time: 05/12/2019 11:10 AM Clinical history: Cough. Shortness of breath. Symptoms for 3 weeks. Comparison: No prior exam Technique: Upright PA and lateral views Findings: There is paucity of peripheral vasculature within the mid and upper lung zones with increase interstitial markings within the lung bases. There is associated increase anterior posterior dimension of the chest with some flattening of each hemidiaphragm. Findings would be most consistent with emphysematous changes. There are no prior chest x-rays available for comparison. There are coarse linear opacities within the superior lateral right hemithorax with some apparent overlying pleural thickening. This would be most consistent with chronic pleural and parenchymal scarring. However, follow-up chest x-ray in 1-3 months could be obtained to evaluate stability. No definitive evidence of focal pulmonary consolidation or effusion. Cardiac silhouette and pulmonary vasculature are within normal limits. Atherosclerotic calcifications aortic arch region. IMPRESSION: 1. Emphysematous changes. 2. Probable pleural parenchymal scarring right apex. Follow-up chest x-ray in 1-3 months could be obtained to evaluate stability. 2. No definitive evidence of acute pulmonary infiltrate or consolidation. Reading Date/Time: 05/12/2019 11:12 AM Performed by: JUANCARLOS Canales Authorized by: JUANCARLOS Canales Interpreted by ED physician Rhythm comments: no acute st/t changes Rate: tachycardic ED Course / Medical Decision Making ED Course as of May 14 1657 Mon May 12, 2019 1247 1147--patient with continued oxygen requirement. She is currently on 3 L. When stop she immediately dropped to 89%. She also becomes tachypneic with respiratory rate between 24 and 28 breaths a minute. Discussed plans for admission with the patient. She is agreeable at this time. Community coverage page. [MP] [phone]--Dr Hernandez returned page. Agrees with plans for admission to medical bed. Pt is aware and agreeable. [MP] ED Course User Index [MP] JOCELINE VarelaP- Diagnosis management comments: 83-year-old female presents w/ cough, respiratory symptoms Pulse Ox Interpretation: Saturation:??97 Oxygen Delivery: room air Interpretation: ??No acute hypoxia at this time. ?? Rhythm strip interpretation: Rhythm sinus tachycardia rate 122. No arrhythmia noted. ?? Plan: - EKG - Labs - Imaging - Meds Data reviewed: All current, pertinent and timely studies (laboratory, imaging, and procedures) wereordered and results reviewed by Mounika Gray NP unless otherwise noted. Triage notes and available nursing notes reviewed. Previous medical record reviewed when available. Repeat vital signs reviewed. PCP: Provider MD Pati Progress notes: Medications enoxaparin (LOVENOX) 40 MG/0.4ML syringe 40 mg (40 mg Subcutaneous Given 05/14/19 1433) acetaminophen (TYLENOL) tablet 650 mg (has no administration in time range) ondansetron (ZOFRAN) injection 4 mg (has no administration in time range) ipratropium-albuterol (DUONEB) 0.5-2.5 (3) MG/3ML nebulizer solution 3 mL (3 mLs Nebulization Given05/14/19 1542) ipratropium-albuterol (DUONEB) 0.5-2.5 (3) MG/3ML nebulizer solution 3 mL (has no administration intime range) azithromycin (ZITHROMAX) tablet 500 mg (500 mg Oral Given 05/14/19 1128) famotidine (PEPCID) injection 20 mg (has no administration in time range) Or famotidine (PEPCID) tablet 20 mg (has no administration in time range) methylPREDNISolone sodium succinate (SOLU-MEDROL) injection 40 mg (has no administration in time range) pantoprazole EC (PROTONIX) tablet 40 mg (40 mg Oral Given 05/14/19 1311) albuterol (PROVENTIL) (2.5 MG/3ML) 0.083% nebulizer solution 2.5 mg (2.5 mg Nebulization Given 05/12/19 1139) sodium chloride 0.9% bolus infusion SOLN 1,000 mL (0 mLs Intravenous Infusion Stop Time 05/12/19 1230) azithromycin (ZITHROMAX) 500 mg in sodium chloride 0.9 % 250 mL IVPB (0 mg Intravenous Infusion Stop Time 05/12/19 1531) methylPREDNISolone sodium succinate (SOLU-MEDROL) injection 125 mg (125 mg Intravenous Given 05/12/201248) Clinical Impression COPD with acute exacerbation (CMS/HCC) (Primary) Hypoxia There are no discharge medications for this patient. Disposition: Admit Follow-Up: No follow-up provider specified. Jessica Nielsen, acting as a scribe, am personally taking down the notes in the presence of JUANCARLOS Canales. Take no action on this note until reviewed and authenticated by the physician. JUANCARLOS Canales 05/14/19 3499 Cosigned by Es Raymond MD at 05/19/2019 3:04 PM PASTRY SOUS CHEF RY SOUS CHEF RY SOUS CHEF * Ana Ulloa RN - 05/12/2019 10:27 AM CST Pt to triage from home with c/o cough and SOB that has been on going x 3 weeks. reports it is worsewith exertion. Reports generalized pain. No previous hx of longue issues. Denies chest pain. Started on 3L O2 in triage. ANA ULLOA RN RY SOUS CHEF documented in this encounter Plan of Treatment Not on file documented as of this encounter Procedures Procedure Name Priority Date/Time Associated Diagnosis Comments XR CHEST PA+LAT AGUS 05/16/2019 9:53 AM PASTRY SOUS CHEF BASIC METABOLIC PANEL Routine 05/16/2019 5:56 AM PASTRY SOUS CHEF CBC W/DIFF AUTOMATED Routine 05/16/2019 5:56 AM PASTRY SOUS CHEF BASIC METABOLIC PANEL STAT 05/15/2019 9:01 AM PASTRY SOUS CHEF CBC W/DIFF AUTOMATED STAT 05/15/2019 9:01 AM PASTRY SOUS CHEF BASIC METABOLIC PANEL Routine 05/14/2019 9:44 AM PASTRY SOUS CHEF CBC W/DIFF AUTOMATED Routine 05/14/2019 9:44 AM PASTRY SOUS CHEF HEMOGLOBIN, GLYCOSYLATED Routine 5:48 AM PASTRY SOUS CHEF PROTHROMBIN TIME, VENOUS Routine 5:48 AM PASTRY SOUS CHEF COMPREHENSIVE METABOLIC PANEL Routine 05/13/2019 5:48 AM PASTRY SOUS CHEF LIPID PANEL Routine 05/13/2019 5:48 AM PASTRY SOUS CHEF CBC W/DIFF AUTOMATED Routine 05/13/2019 5:48 AM PASTRY SOUS CHEF MAGNESIUM Routine 05/13/2019 5:48 AM PASTRY SOUS CHEF XR CHEST PA+LAT STAT 05/12/2019 11:27 AM PASTRY SOUS CHEF INFLUENZA A & B STAT 05/12/2019 11:16 AM PASTRY SOUS CHEF ELECTROCARDIOGRAM REPORT Routine 11:15 AM PASTRY SOUS CHEF ECG 12-LEAD STAT 05/12/2019 11:12 AM PASTRY SOUS CHEF BNP STAT 05/12/2019 11:00 AM PASTRY SOUS CHEF TROPONIN, QUANT STAT 05/12/2019 11:00 AM PASTRY SOUS CHEF PROCALCITONIN (PCT) STAT 05/12/2019 1 0:58 AM PASTRY SOUS CHEF COMPREHENSIVE METABOLIC PANEL STAT 05/12/2019 10:58 AM PASTRY SOUS CHEF LACTIC ACID TIMED 05/12/2019 10:58 AM PASTRY SOUS CHEF CULTURE, BACTERIA, BLOOD STAT 020 10:58 AM PASTRY SOUS CHEF CULTURE, BACTERIA, BLOOD STAT 020 10:58 AM PASTRY SOUS CHEF CBC W/DIFF AUTOMATED STAT 05/12/2019 10:58 AM PASTRY SOUS CHEF documented in this encounter Results * XR CHEST PA+LAT (05/16/2019 9:53 AM PASTRY SOUS CHEF) Anatomical Region Laterality Modality Chest Radiographic Sharri ging 05/16/2019 10:1 3 AM PASTRY SOUS CHEF Impressions 05/16/2019 11:03 AM PASTRY SOUS CHEF =====IMPRESSION:===== ?? 1. ??Prominent interstitial markings, stable from prior exam. Pulmonary fibrosis or other etiologies possible. Correlate clinically. 2. ??Hyperinflation is suggestive chronic obstructive pulmonary disease. Narrative 05/16/2019 11:03 AM PASTRY SOUS CHEF EXAMINATION: Chest X-Ray 2 View EXAM DATE/TIME: 05/16/2019 9:47 AM REASON FOR EXAM: ??decreased breath sounds to right base; hypoxia; dyspnea ?? COMPARISON: May 12, 2019 TECHNIQUE: PA and lateral views of the chest were obtained. FINDINGS: Interstitial prominence is seen particularly in the lung bases bilaterally and right upper lobe. Findings appear stable from prior study. No pulmonary vascular redistribution is seen. Heart size is within normal limits. Hyperinflation suggestive chronic obstructive pulmonary disease. Spurring the thoracic spine is noted. Calcification of the aorta is consistent with atherosclerotic change. Procedure Note Zaire Callahan MD - 05/16/2019 EXAMINATION: Chest X-Ray 2 View EXAM DATE/TIME: 05/16/2019 9:47 AM REASON FOR EXAM: decreased breath sounds to right base; hypoxia; dyspnea COMPARISON: May 12, 2019 TECHNIQUE: PA and lateral views of the chest were obtained. FINDINGS: Interstitial prominence is seen particularly in the lung bases bilaterally and right upper lobe. Findings appear stable from priorstudy. No pulmonary vascular redistribution is seen. Heart size is withinnormal limits. Hyperinflation suggestive chronic obstructive pulmonary disease. Spurring the thoracic spine is noted. Calcification of the aorta is consistent with atherosclerotic change. =====IMPRESSION:===== 1. Prominent interstitial markings, stable from prior exam. Pulmonary fibrosis or other etiologies possible. Correlate clinically. 2. Hyperinflation is suggestive chronic obstructive pulmonary disease. us Linda Santos SURFACE HYDROLOGIST GENERAL IMAGING Final Resu lt * (ABNORMAL) BASIC METABOLIC PANEL (05/16/2019 5:56 AM PASTRY SOUS CHEF) GLUCOSE 81 70 - 99 MG/DL 05/16/2019 7:43 AM [facility] BUN 18 7 - 18 MG/DL 05/16/2019 7:43 AM [facility] CREATININE S/P/B 0.68 0.55 - 1.02 MG/DL 05/16/2019 7:43 AM [facility] SODIUM S/P/B 139 136 - 145 MMOL/L 05/16/2019 7:43 AM [facility] POTASSIUM S/P/B 3.6 3.5 - 5.1 MMOL/L 05/16/2019 7:43 AM [facility] CHLORIDE S/P/B 105 100 - 108 MMOL/L 05/16/2019 7:43 AM [facility] CO2 30.7 21 - 32 MMOL/L 05/16/2019 7:43 AM [facility] CALCIUM S/P/B 8.5 8.5 - 10.1 MG/DL 05/16/2019 7:43 AM [facility] ANION GAP 3.3(L) 5 - 15 MMOL/L 05/16/2019 7:43 AM [facility] BUN CREATININE RATIO 26.6(H) 6 - 26 05/16/2019 7:43 AM [facility] EGFR NON-AFR. AMER. 82(L) >90 ML/MIN/1.7 3 M2 05/16/2019 7:43 AM [facility] EGFR AFR. AMER. >90 >90 ML/MIN/1.7 3 M2 05/16/2019 7:43 AM [facility] Comment: NOTE: eGFR is not calculated for patients <18 years of age. This is an estimated GFR (CKD EPI) and should not be used for calculating drug doses. 05/16/2019 5:56 AM PASTRY SOUS CHEF Mounika Miramontes NP LABORATORY Final Resul t [facility] [address] [place] [address], [place] [phone] * (ABNORMAL) CBC W/DIFF AUTOMATED (05/16/2019 5:56 AM PASTRY SOUS CHEF) WBC 14.8(H) 4.5 - 11.0 x10'3/uL 05/16/2019 6:40 AM [facility] RBC 4.26 4.20 - 5.40 x10'6/uL 05/16/2019 6:40 AM [facility] HGB 13.0 12.0 - 16.0 G/DL 05/16/2019 6:40 AM [facility] HCT 40.4 38.0 - 48.0 % 05/16/2019 6:40 AM [facility] MCV 94.8 81.0 - 99.0 FL 05/16/2019 6:40 AM [facility] MCH 30.5 27.0 - 31.0 PG 05/16/2019 6:40 AM [facility] MCHC 32.2 32.0 - 36.0 G/DL 05/16/2019 6:40 AM [facility] RDW 13.6 11.5 - 14.5 % 05/16/2019 6:40 AM [facility] PLT 346 130 - 400 x10'3/uL 05/16/2019 6:40 AM [facility] MPV 8.8(L) 9.3 - 12.2 FL 05/16/2019 6:40 AM [facility] DIFFERENTIAL TYPE AUTOMATED DIFFERENTIAL 05/16/2019 6:40 AM [facility] NEUTROPHILS % 74.3 % 05/16/2019 6:40 AM [facility] LYMPHOCYTES % 14.2 % 05/16/2019 6:40 AM [facility] MONOCYTES % 9.5 % 05/16/2019 6:40 AM [facility] EOSINOPHILS 0.1 % 05/16/2019 6:40 AM [facility] BASOPHILS 0.2 % 05/16/2019 6:40 AM [facility] IMMATURE GRANS % 1.7 % 05/16/19 20 6:40 AM [facility] ABS. NEUTROPHILS TOTAL 11.03(H) 1.80 - 7.70 x10'3/uL 05/16/2019 6:40 AM [facility] ABS. LYMPHOCYTES 2.10 1.00 - 4.80 x10'3/uL 05/16/2019 6:40 AM [facility] ABS. MONOCYTES 1.41(H) 0.24 - 0.86 x10'3/uL 05/16/2019 6:40 AM [facility] ABS. EOSINOPHILS 0.01(L) 0.04 - 0.36 x10'3/uL 05/16/2019 6:40 AM [facility] ABS. BASOPHILS 0.03 0.01 - 0.08 x10'3/uL 05/16/2019 6:40 AM [facility] ABS. IMMATURE GRANULOCYTES 0.25 0.00 - 0.49 x10'3/uL 05/16/2019 6:40 AM [facility] 05/16/2019 5:56 AM PASTRY SOUS CHEF Mounika Miramontes NP LABORATORY Final Resul t [facility] [address] [place] [address], * (ABNORMAL) BASIC METABOLIC PANEL (05/15/2019 9:01 AM PASTRY SOUS CHEF) GLUCOSE 205(H) 70 - 99 MG/DL 05/15/2019 9:34 AM [facility] BUN 17 7 - 18 MG/DL 05/15/2019 9:34 AM [facility] CREATININE S/P/B 0.83 0.55 - 1.02 MG/DL 05/15/2019 9:34 AM [facility] SODIUM S/P/B 139 136 - 145 MMOL/L 05/15/2019 9:34 AM [facility] POTASSIUM S/P/B 3.5 3.5 - 5.1 MMOL/L 05/15/2019 9:34 AM [facility] CHLORIDE S/P/B 105 100 - 108 MMOL/L 05/15/2019 9:34 AM [facility] CO2 29.1 21 - 32 MMOL/L 05/15/2019 9:34 AM [facility] CALCIUM S/P/B 8.8 8.5 - 10.1 MG/DL 05/15/2019 9:34 AM [facility] ANION GAP 4.9(L) 5 - 15 MMOL/L 05/15/2019 9:34 AM [facility] BUN CREATININE RATIO 20.5 6 - 26 05/15/2019 9:34 AM [facility] EGFR NON-AFR. AMER. 66(L) >90 ML/MIN/1.7 3 M2 05/15/2019 9:34 AM [facility] EGFR AFR. AMER. 77(L) >90 ML/MIN/1.7 3 M2 05/15/2019 9:34 AM [facility] Comment: NOTE: eGFR is not calculated for patients <18 years of age. This is an estimated GFR (CKD EPI) and should not be used for calculating drug doses. 05/15/2019 9:01 AM PASTRY SOUS CHEF us Mounika Miramontes NP LABORATORY Final Resul t [facility] [address] [place] [address], [place] [phone] * (ABNORMAL) CBC W/DIFF AUTOMATED (05/15/2019 9:01 AM [facility]) WBC 17.4(H) 4.5 - 11.0 x10'3/uL 05/15/2019 9:18 AM [facility] RBC 4.40 4.20 - 5.40 x10'6/uL 05/15/2019 9:18 AM [facility] HGB 13.4 12.0 - 16.0 G/DL 05/15/2019 9:18 AM [facility] HCT 41.4 38.0 - 48.0 % 05/15/2019 9:18 AM [facility] MCV 94.1(H) 80.0 - 94.0 FL 05/15/2019 9:18 AM [facility] MCH 30.5 27.0 - 31.0 PG 05/15/2019 9:18 AM [facility] MCHC 32.4 32.0 - 36.0 G/DL 05/15/2019 9:18 AM [facility] RDW 13.5 11.5 - 14.5 % 05/15/2019 9:18 AM [facility] PLT 385 130 - 400 x10'3/uL 05/15/2019 9:18 AM [facility] MPV 8.9(L) 9.3 - 12.2 FL 05/15/2019 9:18 AM [facility] DIFFERENTIAL TYPE AUTOMATED DIFFERENTIAL 05/15/2019 9:18 AM [facility] NEUTROPHILS % 80.1 % 05/15/2019 9:18 AM [facility] LYMPHOCYTES % 9.7 % 05/15/2019 9:18 AM [facility] MONOCYTES % 8.0 % 05/15/2019 9:18 AM [facility] EOSINOPHILS 0.0 % 05/15/2019 9:18 AM [facility] BASOPHILS 0.3 % 05/15/2019 9:18 AM [facility] IMMATURE GRANS % 1.9 % 05/15/19 20 9:18 AM [facility] ABS. NEUTROPHILS TOTAL 13.94(H) 1.80 - 7.70 x10'3/uL 05/15/2019 9:18 AM [facility] ABS. LYMPHOCYTES 1.68 1.00 - 4.80 x10'3/uL 05/15/2019 9:18 AM [facility] ABS. MONOCYTES 1.40(H) 0.24 - 0.86 x10'3/uL 05/15/2019 9:18 AM PASTRY SOUS CHEF [facility] ABS. EOSINOPHILS 0.00(L) 0.04 - 0.36 x10'3/uL 05/15/2019 9:18 AM [facility] ABS. BASOPHILS 0.05 0.01 - 0.08 x10'3/uL 05/15/2019 9:18 AM [facility] ABS. IMMATURE GRANULOCYTES 0.33 0.00 - 0.49 x10'3/uL 05/15/2019 9:18 AM [facility] 05/15/2019 9:01 AM PASTRY SOUS CHEF Mounika Miramontes CR[facility] LABORATORY Final Resul t [facility] [address] [place] [id number], * (ABNORMAL) CBC W/DIFF AUTOMATED (05/14/2019 9:44 AM PASTR[facility] SOUS CHEF) WBC 19.8(H) 4.5 - 11.0 x10'3/uL 05/14/2019 9:55 AM [facility] RBC 4.33 4.20 - 5.40 x10'6/uL 05/14/2019 9:55 AM [facility] HGB 13.4 12.0 - 16.0 G/DL 05/14/2019 9:55 AM [facility] HCT 40.3 38.0 - 48.0 % 05/14/2019 9:55 AM [facility] MCV 93.1 81.0 - 99.0 FL 05/14/2019 9:55 AM [facility] MCH 30.9 27.0 - 31.0 PG 05/14/2019 9:55 AM [facility] MCHC 33.3 32.0 - 36.0 G/DL 05/14/2019 9:55 AM [facility] RDW 13.4 11.5 - 14.5 % 05/14/2019 9:55 AM [facility] PLT 386 130 - 400 x10'3/uL 05/14/2019 9:55 AM [facility] MPV 8.5(L) 9.3 - 12.2 FL 05/14/2019 9:55 AM [facility] DIFFERENTIAL TYPE AUTOMATED DIFFERENTIAL 05/14/2019 9:55 AM [facility] NEUTROPHILS % 87.3 % 05/14/2019 9:55 AM [facility] LYMPHOCYTES % 6.5 % 05/14/2019 9:55 AM [facility] MONOCYTES % 4.5 % 05/14/2019 9:55 AM [facility] EOSINOPHILS 0.0 % 05/14/2019 9:55 AM [facility] BASOPHILS 0.2 % 05/14/2019 9:55 AM [facility] IMMATURE GRANS % 1.5 % 05/14/19 20 9:55 AM [facility] ABS. NEUTROPHILS TOTAL 17.33(H) 1.80 - 7.70 x10'3/uL 05/14/2019 9:55 AM [facility] ABS. LYMPHOCYTES 1.28 1.00 - 4.80 x10'3/uL 05/14/2019 9:55 AM [facility] ABS. MONOCYTES 0.90(H) 0.24 - 0.86 x10'3/uL 05/14/2019 9:55 AM [facility] ABS. EOSINOPHILS 0.00(L) 0.04 - 0.36 x10'3/uL 05/14/2019 9:55 AM [facility] ABS. BASOPHILS 0.03 0.01 - 0.08 x10'3/uL 05/14/2019 9:55 AM [facility] ABS. IMMATURE GRANULOCYTES 0.30 0.00 - 0.49 x10'3/uL 05/14/2019 9:55 AM [facility] 05/14/2019 9:44 AM PASTRY SOUS CHEF Mounika Castro NP LABORATORY Final Resu lt [facility] [address] [place] [address], * (ABNORMAL) BASIC METABOLIC PANEL (05/14/2019 9:44 AM PASTRY S[facility] CHEF) GLUCOSE 155(H) 70 - 99 MG/DL 05/14/2019 10:17 AM [facility] BUN 17 7 - 18 MG/DL 05/14/2019 10:17 AM [facility] CREATININE S/P/B 0.78 0.55 - 1.02 MG/DL 05/14/2019 10:17 AM [facility] SODIUM S/P/B 140 136 - 145 MMOL/L 05/14/2019 10:17 AM [facility] POTASSIUM S/P/B 3.5 3.5 - 5.1 MMOL/L 05/14/2019 10:17 AM [facility] CHLORIDE S/P/B 107 100 - 108 MMOL/L 05/14/2019 10:17 AM [facility] CO2 27.6 21 - 32 MMOL/L 05/14/2019 10:17 AM [facility] CALCIUM S/P/B 9.2 8.5 - 10.1 MG/DL 05/14/2019 10:17 AM [facility] ANION GAP 5.4 5 - 15 MMOL/L 05/14/2019 10:17 AM [facility] BUN CREATININE RATIO 21.7 6 - 26 05/14/2019 10:17 AM [facility] EGFR NON-AFR. AMER. 71(L) >90 ML/MIN/1.7 3 M2 05/14/2019 10:17 AM [facility] EGFR AFR. AMER. 83(L) >90 ML/MIN/1.7 3 M2 05/14/2019 10:17 AM [facility] Comment: NOTE: eGFR is not calculated for patients <18 years of age. This is an estimated GFR (CKD EPI) and should not be used for calculating drug doses. 05/14/2019 9:44 AM PASTRY SOUS CHEF Mounika Castro NP LABORATORY Final Resu lt [facility] [address] [place] [address], [place] [phone] * (ABNORMAL) LIPID PANEL (05/13/2019 5:48 AM PASTRY SOUS CHEF) CHOLESTEROL 103 <200 MG/DL 05/13/2019 7:01 AM [facility] TRIGLYCERIDES 79 <150 MG/DL 05/13/2019 7:01 AM [facility] HDL 37(L) >40.0 MG/DL 05/13/2019 7:01 AM [facility] LDL (CALCULATED) 50 <100 MG/DL 05/13/19 20 7:01 AM [facility] NON HDL CHOLESTEROL 66 <130 MG/DL 05/13 7:01 AM [facility] CHOL/HDL RATIO 2.8 0.0 - 4.5 05/13/2019 7:01 AM [facility] VLDL CALCULATION 16 5 - 55 MG/DL 05/13/2019 7:01 AM [facility] LIPID INTERPRETATION 05/13/2019 7:01 AM [facility] Comment: [facility] REPORT RECOMMENDATIONS: ?ADULT ?CHILD ??LOW RISK: ?CHOLESTEROL ? <200 ? <170 ?TRIGLYCERIDE ?<150 ?--- ?HDL ? >=60 ?--- ?LDL ? <100 ? <110 ??BORDERLINE: ?CHOLESTEROL ? 200-239 ?? 170-199 ?TRIGLYCERIDE ?150-199 ? --- ?HDL ?40-59 ?--- ?LDL ? 100-159 ?? 110-129 ??HIGH RISK: ?CHOLESTEROL ? >=240 ?>=200 ?TRIGLYCERIDE ?>=200 ? --- ?HDL ?<40 ?--- ?LDL ? >=160 ?>=130 05/13/2019 5:48 AM PASTRY SOUS CHEF us Rodrigue Sylvester MD LABORATORY Final Resul t [facility] [address] [place] [address], * (ABNORMAL) COMPREHENSIVE METABOLIC PANEL (05/13/2019 5:48 AM PASTRY SOUS CHEF) GLUCOSE 143(H) 70 - 99 MG/DL 05/13/2019 7:01 AM [facility] BUN 13 7 - 18 MG/DL 05/13/2019 7:01 AM [facility] CREATININE S/P/B 0.61 0.55 - 1.02 MG/DL 05/13/2019 7:01 AM [facility] SODIUM S/P/B 139 136 - 145 MMOL/L 05/13/2019 7:01 AM [facility] POTASSIUM S/P/B 4.2 3.5 - 5.1 MMOL/L 05/13/2019 7:01 AM [facility] CHLORIDE S/P/B 109(H) 100 - 108 MMOL/L 05/13/2019 7:01 AM [facility] CO2 26.4 21 - 32 MMOL/L 05/13/2019 7:01 AM [facility] CALCIUM S/P/B 9.3 8.5 - 10.1 MG/DL 05/13/2019 7:01 AM [facility] BILIRUBIN TOTAL S/P/B 0.3 0.2 - 1.2 MG/DL 05/13/2019 7:01 AM [facility] TOTAL PROTEIN S/P/B 6.8 6.4 - 8.2 G/DL 05/13/2019 7:01 AM [facility] ALBUMIN S/P/B 2.6(L) 3.4 - 5.0 G/DL 05/13/2019 7:01 AM [facility] AST 34 15 - 37 U/L 05/13/2019 7:01 AM [facility] ALT 58(H) 14 - 55 U/L 05/13/2019 7:01 AM [facility] ALKALINE PHOSPHATASE S/P/B 73 50 - 136 U/L 05/13/2019 7:01 AM [facility] ANION GAP 3.6(L) 5 - 15 MMOL/L 05/13/2019 7:01 AM [facility] BUN CREATININE RATIO 21.3 6 - 26 05/13/2019 7:01 AM [facility] A/G RATIO 0.6(L) 1.0 - 2.0 RATIO 05/13/2019 7:01 AM [facility] EGFR NON-AFR. AMER. 85(L) >90 ML/MIN/1.7 3 M2 05/13/2019 7:01 AM [facility] EGFR AFR. AMER. >90 >90 ML/MIN/1.7 3 M2 05/13/2019 7:01 AM [facility] Comment: NOTE: eGFR is not calculated for patients <18 years of age. This is an estimated GFR (CKD EPI) and should not be used for calculating drug doses. 05/13/2019 5:48 AM PASTRY SOUS CHEF us Rodrigue Sylvester MD LABORATORY Final Resul t [facility] [address] [place] [address], * HEMOGLOBIN, GLYCOSYLATED (05/13/2019 5:48 AM PASTRY SOUS CHEF) [facility] HGB A1C 5.9 4.2 - 6.3 % 05/13/2019 6:49 AM PASTRY SOUS CHEF [facility] Comment: ADA GUIDELINES 2010 5.7 TO 6.4% INCREASED RISK OF DIABETES > OR = 6.5% CONSISTENT WITH DIABETES ESTIMATED AVG GLUCOSE 123 mg/dL 05/13/2019 6:49 AM PASTRY SOUS CHEF [facility] 05/13/2019 5:48 AM PASTRY SOUS CHEF Rodrigue Sylvester MD LABORATORY Final Resul t Performing Organization Address City/[facility]/ZIP Co de Phone Number [facility] [address] [place] [phone], * MAGNESIUM (05/13/2019 5:48 AM PASTRY SOUS CHEF) [facility] MAGNESIUM 2.3 1.8 - 2.4 MG/DL 05/13/2019 7:01 AM PASTRY SOUS CHEF [facility] 05/13/2019 5:48 AM PASTRY SOUS CHEF Rodrigue Sylvester MD LABORATORY Final Resul t [facility] [address] [place] [address], * (ABNORMAL) PROTHROMBIN TIME, VENOUS (05/13/2019 5:48 AM PASTRY SOUS CHEF) [facility] PROTIME 12.7(H) 9.6 - 12.2 SEC 05/13/2019 6:51 AM PASTRY SOUS CHEF [facility] INR 1.1 05/13/2019 6:51 AM [facility] Comment: Recommended INR Therapeutic Goals: ??2.0-3.0 Routine Therapy ??2.5-3.5 Mechanical Prosthetic Valves (High Risk) ??3.0-4.0 Acute NC (to prevent Systemic Embolism) The INR is used only for patients on stable oral anticoagulant therapy. It makes no significant contribution to the diagnosis or treatment of patients whose Protime is prolonged for other reasons. 05/13/2019 5:48 AM PASTRY SOUS CHEF us Rodrigue Sylvester MD LABORATORY Final Resul t [facility] [address] [place] [address], [place] [phone] * (ABNORMAL) CBC W/DIFF AUTOMATED (05/13/2019 5:48 AM PASTRY SOUS CHEF) WBC 10.1 4.5 - 11.0 x10'3/uL 05/13/2019 6:34 AM [facility] RBC 4.07(L) 4.20 - 5.40 x10'6/uL 05/13/2019 6:34 AM [facility] HGB 12.9 12.0 - 16.0 G/DL 05/13/2019 6:34 AM [facility] HCT 40.0 38.0 - 48.0 % 05/13/2019 6:34 AM [facility] MCV 98.3 81.0 - 99.0 FL 05/13/2019 6:34 AM [facility] MCH 31.7(H) 27.0 - 31.0 PG 05/13/2019 6:34 AM [facility] MCHC 32.3 32.0 - 36.0 G/DL 05/13/2019 6:34 AM [facility] RDW 13.8 11.5 - 14.5 % 05/13/2019 6:34 AM [facility] PLT 266 130 - 400 x10'3/uL 05/13/2019 6:34 AM [facility] MPV 10.7 9.3 - 12.2 FL 05/13/2019 6:34 AM [facility] DIFFERENTIAL TYPE AUTOMATED DIFFERENTIAL 05/13/2019 6:34 AM [facility] NEUTROPHILS % 82.9 % 05/13/2019 6:34 AM [facility] LYMPHOCYTES % 13.0 % 05/13/2019 6:34 AM [facility] MONOCYTES % 3.0 % 05/13/2019 6:34 AM [facility] EOSINOPHILS 0.0 % 05/13/2019 6:34 AM [facility] BASOPHILS 0.2 % 05/13/2019 6:34 AM [facility] IMMATURE GRANS % 0.9 % 05/13/19 20 6:34 AM [facility] ABS. NEUTROPHILS TOTAL 8.39(H) 1.80 - 7.70 x10'3/uL 05/13/2019 6:34 AM [facility] ABS. LYMPHOCYTES 1.31 1.00 - 4.80 x10'3/uL 05/13/2019 6:34 AM [facility] ABS. MONOCYTES 0.30 0.24 - 0.86 x10'3/uL 05/13/2019 6:34 AM [facility] ABS. EOSINOPHILS 0.00(L) 0.04 - 0.36 x10'3/uL 05/13/2019 6:34 AM [facility] ABS. BASOPHILS 0.02 0.01 - 0.08 x10'3/uL 05/13/2019 6:34 AM [facility] ABS. IMMATURE GRANULOCYTES 0.09 0.00 - 0.49 x10'3/uL 05/13/2019 6:34 AM PASTRY SOUS CHEF [facility] 05/13/2019 5:48 AM PASTRY SOUS CHEF Rodrigue Sylvester MD LABORATORY Final Resul t [facility] [address] [place] [address], [place] [phone] * XR CHEST PA+LAT (05/12/2019 11:27 AM PASTRY SOUS CHEF) Anatomical Region Laterality Modality Chest Radiographic Sharri ging 05/12/2019 12:0 4 PM PASTRY SOUS CHEF Impressions 05/12/2019 12:06 PM PASTRY SOUS CHEF IMPRESSION: 1. Emphysematous changes. 2. Probable pleural parenchymal scarring right apex. Follow-up chest x-ray in 1-3 months could be obtained to evaluate stability. 2. No definitive evidence of acute pulmonary infiltrate or consolidation. Narrative 05/12/2019 12:06 PM PASTRY SOUS CHEF Examination: XR CHEST PA+LAT Exam time: 05/12/2019 11:10 AM Clinical history: Cough. Shortness of breath. Symptoms for 3 weeks. Comparison: No prior exam Technique: Upright PA and lateral views Findings: There is paucity of peripheral vasculature within the mid and upper lung zones with increase interstitial markings within the lung bases. There is associated increase anterior posterior dimension of the chest with some flattening of each hemidiaphragm. Findings would be most consistent with emphysematous changes. There are no prior chest x-rays available for comparison. There are coarse linear opacities within the superior lateral right hemithorax with some apparent overlying pleural thickening. This would be most consistent with chronic pleural and parenchymal scarring. However, follow-up chest x-ray in 1-3 months could be obtained to evaluate stability. No definitive evidence of focal pulmonary consolidation or effusion. Cardiac silhouette and pulmonary vasculature are within normal limits. Atherosclerotic calcifications aortic arch region. Procedure Note Omer Gonzalez MD - 05/12/2019 Examination: XR CHEST PA+LAT Exam time: 05/12/2019 11:10 AM Clinical history: Cough. Shortness of breath. Symptoms for 3 weeks. Comparison: No prior exam Technique: Upright PA and lateral views Findings: There is paucity of peripheral vasculature within the mid and upper lung zones with increase interstitial markings within the lungbases. There is associated increase anterior posterior dimension of the chestwith some flattening of each hemidiaphragm. Findings would be most consistent with emphysematous changes. There are no prior chest x-rays available for comparison. There arecoarse linear opacities within the superior lateral right hemithorax with some apparent overlying pleural thickening. This would be most consistentwith chronic pleural and parenchymal scarring. However, follow-up chest x-rayin 1-3 months could be obtained to evaluate stability. No definitive evidence of focal pulmonary consolidation or effusion. Cardiac silhouette and pulmonary vasculature are within normal limits. Atherosclerotic calcifications aortic arch region. IMPRESSION: 1. Emphysematous changes. 2. Probable pleural parenchymal scarring right apex. Follow-up chestx-ray in 1-3 months could be obtained to evaluate stability. 2. No definitive evidence of acute pulmonary infiltrate orconsolidation. Es Raymond MD GENERAL IMAGING Final Resul t * INFLUENZA A & B (05/12/2019 11:16 AM PASTRY SOUS CHEF) SPECIMEN TYPE NASAL 05/12/2019 11:24 AM PASTRY SOUS CHEF [facility] INFLUENZA A NEGATIVE NEGATIVE 05/12/2019 11:46 AM PASTRY SOUS CHEF [facility] INFLUENZA B NEGATIVE NEGATIVE 05/12/2019 11:46 AM PASTRY SOUS CHEF [facility] Comment: Interpretation: Negative for Influenza A and B. A negative result does not exclude influenza virus infection. If influenza is circulating in your community, a diagnosis of influenza should be considered based on a patient's clinical presentation and empiric antiviral treatment should be considered, if indicated. If more conclusive testing is needed for hospitalized inpatients, follow-up confirmatory testing with RT-PCR requires a separate order. Specimen from nose (specimen) NASAL STRUCTURE / Unknown 05/12/2019 11:16 AM PASTRY SOUS CHEF Gayatri BAUER MICROBIOLOGY - GENERAL OR DERABLES Final Result [facility] [address] [place] [address], * EKG Reading (05/12/2019 11:15 AM PASTRY SOUS CHEF) Narrative Es Raymond MD - 05/12/2019 11:15 AM PASTRY SOUS CHEF JUANCARLOS Canales ? 05/14/2019 ??4:58 PM EKG Reading Date/Time: 05/12/2019 11:12 AM Performed by: JUANCARLOS Canales Authorized by: JUANCARLOS Canales Interpreted by ED physician Rhythm comments: no acute st/t changes Rate: tachycardic Gayatri CARP ND [facility] Final Result * ECG 12 lead (05/12/2019 11:12 AM PASTRY SOUS CHEF) 05/12/2019 11:1 2 AM PASTRY SOUS CHEF Narrative [facility] - 05/12/2019 8:42 PM PASTRY SOUS CHEF ?[facility] ? [address] [place] ? Test Date: ?2019-05-12 Pat Name: ? VALERIA LAKE ? Department: ? Room: ? A506 Gender: ? F ?[employer] Activities Director: ?? nd : ?1935 ? Requested By: GAYATRI FULLER Order Number: [id number] ? Reading MD: ?? Silver Beltre ? Measurements Intervals ?[place] ? Rate: ? 111 ?P: ?34 ND: ? 145 ?QRS: ?36 QRSD: ? 72 ? T: ?31 QT: ? 309 ? QTc: ?420 ? Interpretive Statements SINUS TACHYCARDIA WITH OCCASIONAL ECTOPIC PREMATURE COMPLEXES POSSIBLE LEFT ATRIAL ENLARGEMENT ABNORMAL RHYTHM ECG No previous ECG available for comparison No ischemic changes JUANCARLOS Hernández CRITICAL ALERT ISSUED ON 05-12-2019 11:17:53 RY SOUS CHEF Procedure Note Silver Beltre MD - 05/12/[address] Test Date: 2019-05-12 Pat Name: VALERIA LAKE Department: Room: [facility] Gender: F [employer] Activities Director: janeth : 1935 Requested By: GAYATRI FULLER Order Number: [id number] Reading MD: Silver Beltre Measurements Intervals [place] Rate: 111 P: 34 ND: 145 QRS: 36 QRSD: 72 T: 31 QT: 309 QTc: 420 Interpretive Statements SINUS TACHYCARDIA WITH OCCASIONAL ECTOPIC PREMATURE COMPLEXES POSSIBLE LEFT ATRIAL ENLARGEMENT ABNORMAL RHYTHM ECG No previous ECG available for comparison No ischemic changes JUANCARLOS Hernández CRITICAL ALERT ISSUED ON 05-12-2019 11:17:53 RY SOUS CHEF Gayatri Fuller [facility] ECG ORDERABLES Final Res ult [facility] ([facility] * TROPONIN, QUANT (05/12/2019 11:00 AM PASTRY SOUS CHEF) Pathologist [facility] TROPONIN I <0.015 <0.045 ng/mL. 05/12/2019 11:47 AM PASTRY SOUS CHEF [facility] Comment: HIGH DOSES OF BIOTIN MAY INTERFERE WITH THIS TEST RESULT. CORRELATION TO CLINICAL HISTORY AND PRESENTATION RECOMMENDED. 05/12/2019 11:0 0 AM PASTRY SOUS CHEF Gayatri Fuller [facility] Final Res ult [facility] [address] [place] [address], [place] [phone] * BNP (05/12/2019 11:00 AM PASTRY SOUS CHEF) B TYPE NATRIURETIC PEPTIDE 95 <100 PG/ML 05/12/2019 12:07 PM PASTRY SOUS CHEF [facility] 05/12/2019 11:0 0 AM PASTRY SOUS CHEF Gayatri Fuller [facility] Final Res ult [facility] [address] [place] [phone], * PROCALCITONIN (PCT) (05/12/2019 10:58 AM PASTRY SOUS CHEF) [facility] Procalcitonin 0.15 <0.5 NG/ML 05/12/2019 12:40 PM PASTRY SOUS CHEF [facility] 05/12/2019 10:5 8 AM PASTRY SOUS CHEF Gayatri Fuller [facility] Final Res ult Performing Organization Address City/[facility]/ZIP Co de Phone Number [facility] [address] [place] [address], [place] [phone] * LACTIC ACID (05/12/2019 10:58 AM PASTRY SOUS CHEF) LACTIC ACID VENOUS 1.6 0.4 - 2.0 MMOL/L 05/12/2019 11:38 AM PASTRY SOUS CHEF [facility] 05/12/2019 10:5 8 AM PASTRY SOUS CHEF Es Raymond MD LABORATORY Final Resul t [facility] [address] [place] [address], [place] [phone] * CULTURE, BACTERIA, BLOOD (05/12/2019 10:58 AM PASTRY SOUS CHEF) SPEC DESCRIPTION BLOOD 05/12/19 20 11:23 AM PASTRY SOUS CHEF [facility] SPECIAL REQUESTS RAC 05/12/19 20 11:23 AM PASTRY SOUS CHEF [facility] CULTURE RESULT NO GROWTH 5 DAYS 05/17/2019 6:48 AM PASTRY SOUS CHEF [facility] BLOOD SPECIMEN OBTAINED FOR BLOOD CULTURE / Unknown 05/12/2019 10:58 AM PASTRY SOUS CHEF 05/12/2019 11:23 AM PASTRY SOUS CHEF Es Raymond MD MICROBIOLOGY - GENERAL ORDJalen TREJO Final Result [facility] [address] [place] [address], [place] [phone] * CULTURE, BACTERIA, BLOOD (05/12/2019 10:58 AM PASTRY SOUS CHEF) SPEC DESCRIPTION BLOOD 05/12/2019 11:11 AM PASTRY SOUS CHEF [facility] SPECIAL REQUESTS FOREARM LEFT 05/12/2019 11:11 AM PASTRY SOUS CHEF [facility] CULTURE RESULT NO GROWTH 5 DAYS 05/17/2019 6:48 AM PASTRY SOUS CHEF [facility] BLOOD SPECIMEN OBTAINED FOR BLOOD CULTURE / Unknown 05/12/2019 10:58 AM PASTRY SOUS CHEF 05/12/2019 11:10 AM PASTRY SOUS CHEF Es Raymond MD MICROBIOLOGY - GENERAL ORDJalen TREJO Final Result [facility] [address] [place] [address], [place] [phone] * (ABNORMAL) COMPREHENSIVE METABOLIC PANEL (05/12/2019 10:58 AM PASTRY SOUS CHEF) GLUCOSE 163(H) 70 - 99 MG/DL 05/12/2019 11:47 AM [facility] BUN 16 7 - 18 MG/DL 05/12/2019 11:47 AM [facility] CREATININE S/P/B 0.71 0.55 - 1.02 MG/DL 05/12/2019 11:47 AM [facility] SODIUM S/P/B 136 136 - 145 MMOL/L 05/12/2019 11:47 AM [facility] POTASSIUM S/P/B 3.9 3.5 - 5.1 MMOL/L 05/12/2019 11:47 AM [facility] CHLORIDE S/P/B 104 100 - 108 MMOL/L 05/12/2019 11:47 AM [facility] CO2 26.5 21 - 32 MMOL/L 05/12/2019 11:47 AM [facility] CALCIUM S/P/B 9.2 8.5 - 10.1 MG/DL 05/12/2019 11:47 AM [facility] BILIRUBIN TOTAL S/P/B 0.4 0.2 - 1.2 MG/DL 05/12/2019 11:47 AM [facility] TOTAL PROTEIN S/P/B 7.6 6.4 - 8.2 G/DL 05/12/2019 11:47 AM [facility] ALBUMIN S/P/B 2.9(L) 3.4 - 5.0 G/DL 05/12/2019 11:47 AM [facility] AST 58(H) 15 - 37 U/L 05/12/2019 11:47 AM [facility] ALT 68(H) 14 - 55 U/L 05/12/2019 11:47 AM [facility] ALKALINE PHOSPHATASE S/P/B 80 50 - 136 U/L 05/12/2019 11:47 AM [facility] ANION GAP 5.5 5 - 15 MMOL/L 05/12/2019 11:47 AM [facility] BUN CREATININE RATIO 22.5 6 - 26 05/12/2019 11:47 AM [facility] A/G RATIO 0.6(L) 1.0 - 2.0 RATIO 05/12/2019 11:47 AM [facility] EGFR NON-AFR. AMER. 80(L) >90 ML/MIN/1.7 3 M2 05/12/2019 11:47 AM [facility] EGFR AFR. AMER. >90 >90 ML/MIN/1.7 3 M2 05/12/2019 11:47 AM [facility] Comment: NOTE: eGFR is not calculated for patients <18 years of age. This is an estimated GFR (CKD EPI) and should not be used for calculating drug doses. 05/12/2019 10:5 8 AM [facility] us Es Raymond MD LABORATORY Final Resul t [facility] [address] [place] [address], * (ABNORMAL) CBC W/DIFF AUTOMATED (05/12/2019 10:58 AM [facility]) WBC 12.6(H) 4.5 - 11.0 x10'3/uL 05/12/2019 11:24 AM [facility] RBC 4.24 4.20 - 5.40 x10'6/uL 05/12/2019 11:24 AM [facility] HGB 12.9 12.0 - 16.0 G/DL 05/12/2019 11:24 AM [facility] HCT 39.2 38.0 - 48.0 % 05/12/2019 11:24 AM [facility] MCV 92.5 81.0 - 99.0 FL 05/12/2019 11:24 AM [facility] MCH 30.4 27.0 - 31.0 PG 05/12/2019 11:24 AM [facility] MCHC 32.9 32.0 - 36.0 G/DL 05/12/2019 11:24 AM [facility] RDW 13.3 11.5 - 14.5 % 05/12/2019 11:24 AM [facility] PLT 329 130 - 400 x10'3/uL 05/12/2019 11:24 AM [facility] MPV 8.9(L) 9.3 - 12.2 FL 05/12/2019 11:24 AM [facility] DIFFERENTIAL TYPE AUTOMATED DIFFERENTIAL 05/12/2019 11:24 AM [facility] NEUTROPHILS % 74.4 % 05/12/2019 11:24 AM [facility] LYMPHOCYTES % 13.5 % 05/12/2019 11:24 AM [facility] MONOCYTES % 11.3 % 05/12/2019 11:24 AM [facility] EOSINOPHILS 0.0 % 05/12/2019 11:24 AM [facility] BASOPHILS 0.2 % 05/12/2019 11:24 AM [facility] IMMATURE GRANS % 0.6 % 05/12/19 20 11:24 AM [facility] ABS. NEUTROPHILS TOTAL 9.40(H) 1.80 - 7.70 x10'3/uL 05/12/2019 11:24 AM [facility] ABS. LYMPHOCYTES 1.70 1.00 - 4.80 x10'3/uL 05/12/2019 11:24 AM [facility] ABS. MONOCYTES 1.42(H) 0.24 - 0.86 x10'3/uL 05/12/2019 11:24 AM [facility] LAB ABS. EOSINOPHILS 0.00(L) 0.04 - 0.36 x10'3/uL 05/12/2019 11:24 AM PASTRY SOUS CHEF [facility] ABS. BASOPHILS 0.02 0.01 - 0.08 x10'3/uL 05/12/2019 11:24 AM PASTRY SOUS CHEF [facility] ABS. IMMATURE GRANULOCYTES 0.08 0.00 - 0.49 x10'3/uL 05/12/2019 11:24 AM PASTRY SOUS CHEF [facility] 05/12/2019 10:5 8 AM PASTRY SOUS CHEF us [place] MD LABORATORY Final Resul t [facility] [address] [place] [address], [place] [phone] documented in this encounter Visit Diagnoses Diagnosis Acute respiratory failure ([facility] Primary Acute respiratory failure COPD with acute exacerbation ([facility]) Obstructive chronic bronchitis with exacerbation Hypoxia Hypoxemia Gastroesophageal reflux disease without esophagitis Esophageal reflux Acute respiratory failure with hypoxia ([facility]) Acute respiratory failure Tobacco abuse Tobacco use disorder Weight loss Loss of weight Gastroesophageal reflux disease without esophagitis Esophageal reflux documented in this encounter Administered Medications Inactive Administered Medications - up to 3 most recent administrations Medication Order MAR Action Action Date Dose Rate Site acetaminophen (TYLENOL) tablet 650 mg 650 mg, Oral, Every 4 hours PRN, Mild pain (Scale 1 - 3), Headaches, Fever, Starting on 05/12/19 at 1459, Until Sun05/16/19 at 1556, Maximum dose of acetaminophen is 4000 mg from all sources in 24 hours. Given 05/16/2019 5:05 AM PASTRY SOUS CHEF 650 mg albuterol (PROVENTIL) (2.5 MG/3ML) 0.083% nebulizer solution 2.5 mg 2.5 mg, Nebulization, Once, 1 dose, On Sun05/12/19 at 1115 Given 05/12/2019 11:39 AM PASTRY SOUS CHEF 2.5 mg amlodipine (NORVASC) tablet 5 mg 5 mg, Oral, Daily, First dose on Sun05/15/19 at 1230, Until Discontinued Given 05/16/2019 8:07 AM PASTRY SOUS CHEF 5 mg Given 05/15/2019 4:00 PM PASTRY SOUS CHEF 5 mg azithromycin (ZITHROMAX) 500 mg in sodium chloride 0.9 % 250 mL IVPB 500 mg, Intravenous, at 250 mL/hr, Once, 1 dose, On Sun05/12/19 at 1330 New Bag 05/12/2019 1:44 PM PASTRY SOUS CHEF 500 m g 250 mL/hr azithromycin (ZITHROMAX) tablet 250 mg 250 mg, Oral, Daily, 3 doses, First dose on Sun05/15/19 at 0900, Last dose on Sun05/17/19 at 0900 Given 05/16/2019 8:07 AM PASTRY SOUS CHEF 250 mg Given 05/15/2019 9:15 AM PASTRY SOUS CHEF 250 mg azithromycin (ZITHROMAX) tablet 500 mg 500 mg, Oral, Daily, First dose on Sun05/13/19 at 0900, Until Discontinued Given 05/14/2019 11:28 AM PASTRY SOUS CHEF 500 mg Given 05/13/2019 8:55 AM PASTRY SOUS CHEF 500 mg bisacodyl (DULCOLAX) suppository 10 mg 10 mg, Rectal, Once, 1 dose, On Sun05/16/19 at 1000 Given 05/16/2019 10:16 AM PASTRY SOUS CHEF 10 mg bisacodyl EC (DULCOLAX) tablet 10 mg 10 mg, Oral, Once, 1 dose, On Sun05/16/19 at 0800, Do not break, chew, or crush. Given 05/16/2019 8:07 AM PASTRY SOUS CHEF 10 mg enoxaparin (LOVENOX) 40 MG/0.4ML syringe 40 mg 40 mg, Subcutaneous, Every 24 hours, First dose on Sun05/12/19 at 1515, Until Discontinued, Administer by deep SubQ injection alternating between the left or right anterolateral and left or right posterolateral abdominal wall. Given 05/15/2019 4:01 PM PASTRY SOUS CHEF 40 mg Right Lower Abdomen Given 05/14/2019 2:33 PM PASTRY SOUS CHEF 40 mg Le ft Lower Abdomen Given 05/13/2019 2:56 PM PASTRY SOUS CHEF 40 mg Le ft Arm famotidine (PEPCID) injection 20 mg 20 mg, Intravenous, Daily, First dose on Sun05/12/19 at 1515, Until Discontinued, Give if unable to take PO., , Per renal P&T protocol IV Push over 2 minutes Given 05/12/2019 5:22 PM PASTRY SOUS CHEF 20 mg famotidine (PEPCID) injection 20 mg 20 mg, Intravenous, 2 times daily, First dose (after last modification) on Sun05/16/19 at 2100, Until Discontinued, Give if unable to take PO., , Per renal P&T protocol IV Push over 2 minutesIndications:Gastroesophageal reflux disease without esophagitis famotidine (PEPCID) tablet 20 mg 20 mg, Oral, Daily, First dose on Sun05/12/19 at 1515, Until Discontinued, Per renal P&T protocol Given 05/14/2019 11:28 AM PASTRY SOUS CHEF 20 mg Given 05/13/2019 8:55 AM PASTRY SOUS CHEF 20 mg famotidine (PEPCID) tablet 20 mg 20 mg, Oral, Daily, First dose (after last modification) on Sun05/15/19 at 0900, Until Discontinued, Per renal P&T protocolIndications:Gastroesophageal reflux disease without esophagitis Given 05/16/2019 8:07 AM PASTRY SOUS CHEF 20 mg Given 05/15/2019 9:15 AM PASTRY SOUS CHEF 20 mg famotidine (PEPCID) tablet 20 mg 20 mg, Oral, 2 times daily, First dose (after last modification) on Sun05/16/19 at 2100, Until Discontinued, Per renal P&T protocolIndications:Gastroesophageal reflux disease without esophagitis fluticasone-salmeterol (ADVAIR HFA) 115-21 MCG/ACT inhaler 2 puff 2 puff, Inhalation, Every 12 hours, First dose on Sun05/14/19 at 2100, Until Discontinued, Following administration, rinse mouth with water after use (do not swallow) to reduce risk of oral candidiasis. Given 05/16/2019 7:26 AM PASTRY SOUS CHEF 2 puffs Given 05/15/2019 7:50 PM PASTRY SOUS CHEF 2 puffs Given 05/15/2019 7:24 AM PASTRY SOUS CHEF 2 puffs ipratropium-albuterol (DUONEB) 0.5-2.5 (3) MG/3ML nebulizer solution 3 mL 3 mL, Nebulization, 4 times daily, First dose on Sun05/12/19 at 1900, Until Discontinued Given 05/16/2019 10:43 AM PASTRY SOUS CHEF 3 mLs Given 05/16/2019 7:25 AM PASTRY SOUS CHEF 3 mLs Given 05/15/2019 7:50 PM PASTRY SOUS CHEF 3 mLs methylPREDNISolone sodium succinate (SOLU-MEDROL) injection 125 mg 125 mg, Intravenous, Once, 1 dose, On Sun05/12/19 at 1315, If ordered IV, administer into a vein over 3-15 minutes. Doses >= 2 mg/kg or 250mg should be given by infusion, unless the benefits of IV injection outweigh the risks (life-threatening shock) Given 05/12/2019 1:48 PM PASTRY SOUS CHEF 125 mg methylPREDNISolone sodium succinate (SOLU-MEDROL) injection 40 mg 40 mg, Intravenous, Every 8 hours scheduled (3 times per day), First dose on Sun05/12/19 at 1700, Until Discontinued, If ordered IV, administer into a vein over 3-15 minutes. Doses >= 2 mg/kg or 250mg should be given by infusion, unless the benefits of IV injection outweigh the risks (life-threatening shock) Given 05/14/2019 11:29 AM PASTRY SOUS CHEF 40 mg Given 05/14/2019 1:16 AM PASTRY SOUS CHEF 40 mg Given 05/13/2019 4:53 PM PASTRY SOUS CHEF 40 mg ondansetron (ZOFRAN) injection 4 mg 4 mg, Intravenous, Every 8 hours PRN, Nausea, Vomiting, Starting on Sun05/12/19 at 1459, Until Sun05/16/19 at 1556, IV push over 2-5 minutes. Given 05/15/2019 5:34 PM PASTRY SOUS CHEF 4 mg pantoprazole EC (PROTONIX) tablet 40 mg 40 mg, Oral, Daily, First dose on Sun05/14/19 at 1230, Until Discontinued, Do not break, chew, or crush.Indications:Gastroesophageal reflux disease without esophagitis Given 05/16/2019 8:07 AM PASTRY SOUS CHEF 40 mg Given 05/15/2019 9:15 AM PASTRY SOUS CHEF 40 mg Given 05/14/2019 1:11 PM PASTRY SOUS CHEF 40 mg predniSONE (DELTASONE) tablet 40 mg 40 mg, Oral, Daily, 5 doses, First dose on Sun05/14/19 at 1830, Last dose on Sun05/18/19 at 0900 Given 05/16/2019 8:07 AM PASTRY SOUS CHEF 40 mg Given 05/15/2019 9:15 AM PASTRY SOUS CHEF 40 mg Given 05/14/2019 6:32 PM PASTRY SOUS CHEF 40 mg saline nasal (AYR) gel Nasal, As needed, Irritation, Starting on Sun05/16/19 at 0909, Until Sun05/16/19 at 1556 sodium chloride 0.9% bolus infusion SOLN 1,000 mL 1,000 mL, Intravenous, Administer over 15 Minutes, Once, 1 dose, On Sun05/12/19 at 1115 New Bag 05/12/2019 11:31 AM PASTRY SOUS CHEF 1,000 mLs documented in this encounter Active and Recently Administered Medications Times are shown in PASTRY SOUS CHEF. Scheduled Medication Order 05/14/2019 05/15/2019 05/16/2019 amlodipine (NORVASC) tablet 5 mg 5 mg, Oral, Daily, First dose on Sun05/15/19 at 1230, Until Discontinued 1600 (Given - Provider: Rachael Esparza RN) 0807 (Given - Provider: Shilpa Carias RN) azithromycin (ZITHROMAX) tablet 250 mg 250 mg, Oral, Daily, 3 doses, First dose on Sun05/15/19 at 0900, Last dose on 05/17/19 at 0900 0915 (Given - Provider: Rachael Esparza RN) 0807 (Given - Provider: Shilpa Carias RN) azithromycin (ZITHROMAX) tablet 500 mg (CANCELED) 500 mg, Oral, Daily, First dose on Sun05/13/19 at 0900, Until Discontinued 1128 (Given - Provider: Rachael Esparza RN) bisacodyl (DULCOLAX) suppository 10 mg (COMPLETED) 10 mg, Rectal, Once, 1 dose, On Sun05/16/19 at 1000 1016 (Given - Provider: Shilpa Carias, СВЕТЛАНА) bisacodyl EC (DULCOLAX) tablet 10 mg (COMPLETED) 10 mg, Oral, Once, 1 dose, On Sun05/16/19 at 0800, Do not break, chew, or crush. 0807 (Given - Provider: Shilpa Carias RN) enoxaparin (LOVENOX) 40 MG/0.4ML syringe 40 mg(Linked Group 1) 40 mg, Subcutaneous, Every 24 hours, First dose on Sun05/12/19 at 1515, Until Discontinued, Administer by deep SubQ injection alternating between the left or right anterolateral and left or right posterolateral abdominal wall. 1433 (Given - Provider: Rachael Esparza RN) 1601 (Given - Provider: Rachael Esparza RN) 1515 (Canceled Entry - Provider: Automatic Discharge Provider - Comment: Automatically canceled at discontinue of medication order) famotidine (PEPCID) injection 20 mg(Linked Group 2) 20 mg, Intravenous, 2 times daily, First dose (after last modification) on Sun05/16/19 at 2100, Until Discontinued, Give if unable to take PO., , Per renal P&T protocol IV Push over 2 minutes famotidine (PEPCID) tablet 20 mg (CANCELED) 20 mg, Oral, Daily, First dose on Sun05/12/19 at 1515, Until Discontinued, Per renal P&T protocol 1128 (Given - Provider: Rachael Esparza RN) famotidine (PEPCID) tablet 20 mg (CANCELED) 20 mg, Oral, Daily, First dose (after last modification) on Sun05/15/19 at 0900, Until Discontinued, Per renal P&T protocol 0915 (Given - Provider: Rachael Esparza RN) 0807 (Given - Provider: Shilpa Carias RN) famotidine (PEPCID) tablet 20 mg(Linked Group 2) 20 mg, Oral, 2 times daily, First dose (after last modification) on Sun05/16/19 at 2100, Until Discontinued, Per renal P&T protocol fluticasone-salmeterol (ADVAIR HFA) 115-21 MCG/ACT inhaler 2 puff 2 puff, Inhalation, Every 12 hours, First dose on Sun05/14/19 at 2100, Until Discontinued, Following administration, rinse mouth with water after use (do not swallow) to reduce risk of oral candidiasis. 1928 (Given - Provider: Flor Weathers, MECHANICAL MANUFACTURING ENGINEER) 723 (Given - Provider: Nathalia Andrade, CONTROL TECHNICIAN)1949 (Given - Provider: Izzy Keenan, RT Student) 725 (Given - Provider: Maia Monroe, LIANNE) ipratropium-albuterol (DUONEB) 0.5-2.5 (3) MG/3ML nebulizer solution 3 mL 3 mL, Nebulization, 4 times daily, First dose on Sun05/12/19 at 1900, Until Discontinued 0830 (Given - Provider: Norah Husain, CONTROL TECHNICIAN)1138 (Given - Provider: Norah Husain, CONTROL TECHNICIAN)1542 (Given - Provider: Ortega Nolasco, MECHANICAL MANUFACTURING ENGINEER)1929 (Given - Provider: Flor Weathers, MECHANICAL MANUFACTURING ENGINEER) 0724 (Given - Provider: Nathalia Andrade, CONTROL TECHNICIAN)1058 (Given - Provider: Nathalia Andrade, CONTROL TECHNICIAN)1512 (Given - Provider: Nathalia Andrade, CONTROL TECHNICIAN)1950 (Given - Provider: Izzy Keenan, RT Student) 0725 (Given - Provider: Maia Monroe, CONTROL TECHNICIAN)1043 (Given - Provider: Maia Monroe, CONTROL TECHNICIAN)1500 (Canceled Entry - Provider: Automatic Discharge Provider - Comment: Automatically canceled at discontinue of medication order) methylPREDNISolone sodium succinate (SOLU-MEDROL) injection 40 mg (CANCELED) 40 mg, Intravenous, Every 8 hours scheduled (3 times per day), First dose on Sun05/12/19 at 1700, Until Discontinued, If ordered IV, administer into a vein over 3-15 minutes. Doses >= 2 mg/kg or 250mg should be given by infusion, unless the benefits of IV injection outweigh the risks (life-threatening shock) 0116 (Given - Provider: Alyssa Flores RN)1129 (Given - Provider: Rachael Esparza RN) pantoprazole EC (PROTONIX) tablet 40 mg 40 mg, Oral, Daily, First dose on Sun05/14/19 at 1230, Until Discontinued, Do not break, chew, or crush. 1311 (Given - Provider: Rachael Esparza RN) 0915 (Given - Provider: Rachael Esparza RN) 0807 (Given - Provider: Shilpa Carias RN) predniSONE (DELTASONE) tablet 40 mg 40 mg, Oral, Daily, 5 doses, First dose on Sun05/14/19 at 1830, Last dose on Sun05/18/19 at 0900 1832 (Given - Provider: Karla Dutta RN) 0915 (Given - Provider: Rachael Esparza, СВЕТЛАНА) 0807 (Given - Provider: Shilpa Carias RN) PRN Medication Order 05/14/2019 05/15/2019 05/16/2019 acetaminophen (TYLENOL) tablet 650 mg 650 mg, Oral, Every 4 hours PRN, Mild pain (Scale 1 - 3), Headaches, Fever, Starting on Sun05/12/19 at 1459, Until Sun05/16/19 at 1556, Maximum dose of acetaminophen is 4000 mg from all sources in 24 hours. 0505 (Given - Provid er: Sissy Rodriguez RN) ipratropium-albuterol (DUONEB) 0.5-2.5 (3) MG/3ML nebulizer solution 3 mL 3 mL, Nebulization, Every 4 hours PRN, Wheezing, Shortness of breath, Starting on Sun05/12/19 at 1459, Until Sun05/16/19 at 1556 ondansetron (ZOFRAN) injection 4 mg 4 mg, Intravenous, Every 8 hours PRN, Nausea, Vomiting, Starting on Sun05/12/19 at 1459, Until Sun05/16/19 at 1556, IV push over 2-5 minutes. 1734 (Given - Provider: Rachael Esparza RN) saline nasal (AYR) gel Nasal, As needed, Irritation, Starting on Sun05/16/19 at 0909, Until Sun05/16/19 at 1556 Linked Groups Order Group 1: enoxaparin (LOVENOX) 40 MG/0.4ML syringe 40 mgJump to med 40 mg, Subcutaneous, Every 24 hours, First dose on Sun05/12/19 at 1515, Until Discontinued, Administer by deep SubQ injection alternating between the left or right anterolateral and left or right posterolateral abdominal wall. And Moderate Risk for VTE (COMPLETED) Group 2: famotidine (PEPCID) injection 20 mgJump to med 20 mg, Intravenous, 2 times daily, First dose (after last modification) on Sun05/16/19 at 2100, Until Discontinued, Give if unable to take PO., , Per renal P&T protocol IV Push over 2 minutes Or famotidine (PEPCID) tablet 20 mgJump to med 20 mg, Oral, 2 times daily, First dose (after last modification) on Sun05/16/19 at 2100, Until Discontinued, Per renal P&T protocol documented in this encounter Care Teams Fur Blower Relationship Specialty Start Date End Date None, Provider, PCP - General 05/12/19 07/16/19 documented as of this encounter
--- OUTSIDE RECORDS SUMMARY | 2024-04-30 19:33 | XMS_ITS | Clinical Summary ---
Author Organization [facility] Address Formerly [facility]. [place], [place] [address] [place] [id number] Care Team Providers Care Build Master Name Role Phone None, Provider MD Primary Care Provider Unavaila ble Allergies No known active allergies Medications albuterol sulfate HFA 108 (90 Base) MCG/ACT inhaler Inhale 2 puffs into the lungs 4 (four) times daily. 1 Inhaler 0 Active Respiratory Therapy Supplies (NEBULIZER COMPRESSOR) KitIndications:P ulmonary emphysema, unspecified emphysema type ([facility]) For use with nebulized medications 1 kit 1 0 Active Respiratory Therapy Supplies (NEBULIZER/ADULT MASK) KitIndications:P ulmonary emphysema, unspecified emphysema type ([facility]) For use with nebulizer 1 kit 0 Active ipratropium-albu terol 0.5-2.5 (3) MG/3ML SolutionIndicati ons:Pulmonary emphysema, unspecified emphysema type ([facility]) Take 3 mLs by nebulization 4 (four) times a day. 360 mL 11 0 Active aspirin EC (ASPIRIN EC) 81 MG tablet Take 81 mg by mouth daily. Active Respiratory Therapy Supplies (FLUTTER) DeviceIndication s:COPD exacerbation ([facility]) 1 each by Does not apply route 2 (two) times daily. 1 Device 0 Active ALBUTEROL (2.5 MG/3ML) 0.083% nebulizer solutionIndicati ons:Pulmonary emphysema, unspecified [facility]ma type [facility] INHALE CONTENTS OF 1 VIAL PER NEBULIZER EVERY 6 HOURS NEEDED FOR WHEEZING 375 mL 3 1 Active TRELEGY 100-62.5-25 MCG/INH AEROSOL POWDER, BREATH ACTIVATEDIndicat ions:Pulmonary emphysema, unspecified emphysema type ([facility]) TAKE 1 PUFF BY MOUTH EVERY DAY 1 each 1 Active Active Problems Problem Noted Date Diagnosed Date Thrush 05/29/2019 Pulmonary emphysema, unspeci fied emphysema type ([facility]) 05/29/2019 Chronic respiratory failure with hypoxia ([facility]) 05/29/2019 Cigarette nicotine dependence in remission 05/29 COPD exacerbation ([facility]) 05/19/2019 Gastroesophageal reflux disease without esophagi tis 05/14/2019 Overview (05/14/2019): Hx of GI bleed Acute respiratory failure ([facility]) 06/2019 Dizziness 05/12/2019 Duodenitis without hemorrhage 07/20/2015 Sandra-Banegas tear 07/20/2015 Pharyngoesophageal dysphagia 07/19/2015 Sciatica of left side 07/19/2015 Tobacco abuse 07/19/2015 Weight loss 07/19/2015 Family History Medical History Relation Comments Cancer Mother Relation Status Comments Mother Social History Tobacco Use Types Packs/Day Years [...] on file Sexual Orientation Not on file Last Filed Vital Signs Vital Sign Reading Time Taken Comments Blood Pressure 136/68 02/24/2020 8:58 AM ELECTRIC FREIGHT CAR OPERATOR Pulse 98 02/24/2020 8:58 AM ELECTRIC FREIGHT CAR OPERATOR Temperature 36.3 ??C (97.4 ??F) 02/24/2020 8:58 AM CS T Respiratory Rate 16 02/24/2020 8:58 AM ELECTRIC FREIGHT CAR OPERATOR Oxygen Saturation 92% 02/24/2020 8:58 AM ELECTRIC FREIGHT CAR OPERATOR Inhaled Oxygen Concentration - - Weight 54.9 kg (121 lb) 02/24/2020 8:58 AM ELECTRIC FREIGHT CAR OPERATOR Height 165.1 cm (5' 5 ) 02/24/2020 8:58 AM ELECTRIC FREIGHT CAR OPERATOR Body Mass Index 20.14 02/24/2020 8:58 AM ELECTRIC FREIGHT CAR OPERATOR Plan of Treatment Health Maintenance Due Date Last Done Comments Pneumococcal Vaccine: 65+ Ye ars (1 of 2 - PCV) 1943 DTaP, Tdap and Td Vaccines ( 1 - Tdap) 1956 Zoster Vaccines (1 of 2) 1987 RSV Immunization or 60+ Years (1 - 1-dose 75+ series) 2012 COVID-19 Vaccine ( - 2023-2 5 season) 2023 Influenza Adult (#1) 2024 Meningococcal B Vaccine Aged Out No l onger eligible based on patient's age to complete this topic Meningococcal Vaccine Aged Out No isabel haily eligible based on patient's age to complete this topic RSV Immunizations Under 20 Months Aged Out No longer eligible based on patient's age to complete this topic Insurance MEDICARE MEDICARE PART A MEDICAID Advance Directives Documents on File Type Date Recorded Patient Code Number Stamper Expl anation Advance Directives and Living Will 05/21/2019 7:24 AM 05/20/19 POLST FORM * DNR (Latest Code Status on File) Date Activated Date Inactivated Comments 05/19/2019 9:23 PM 05/23/2019 9:01 PM * Full Code Date Activated Date Inactivated Comments 05/19/2019 7:50 PM 05/19/2019 9:23 PM * Full Code Date Activated Date Inactivated Comments 05/12/2019 2:59 PM 05/16/2019 4:01 PM Care Teams Build Master Relationship Specialty Start Date End Date None, Provider, PCP - General 07/17/19
--- OUTSIDE RECORDS SUMMARY | 2024-04-30 19:33 | XMS_ITS | Encounter Summary ---
Author Organization [facility] Address [address] [place] [address]. [place], [place] [address] [place] [address] Care Team Providers Care Dust Mill Operator Name Role Phone None, Provider Primary Care Provider Unavaila ble Reason for Visit * Reason Comments Follow Up hospital f/u appt * Consultation/Treatment (Routine) - Closed Specialty Diagnoses / Procedures Referred By Kady jenkins Referred To Contact NURSE PRACTITIONER / SLEEP & RESPIRATORY CARE Diagnoses Dr. Benitez patient Procedures FOLLOW UP New Referring, Provider Linda Santos, GEORGETTE Referral ID Status Reason Start Date Expiration Date Visits Re quested Visits Authorized [id number] Closed 05/27/2019 05/27/2020 100 100 Encounter Details Date Type Department Care Team (Latest Contact Info) Description 05/27/2019 11:20 AM ESL PROFESSOR Office Visit [facility] Medical Group Multispecialty Care - [address], [address] [place] [phone] Linda Santos, GROUND SUPPORT EQUIPMENT FITTER Follow Up (hospital f/u appt ) Social History Tobacco Use Types Packs/Day [...] Sign Reading Time Taken Comments Blood Pressure 116/65 05/27/2019 11:48 AM ESL PROFESSOR Pulse 108 05/27/2019 11:48 AM ESL PROFESSOR Temperature 36.1 ??C (96.9 ??F) 05/27/2019 11:[address] Respiratory Rate 16 05/27/2019 11:48 AM ESL PROFESSOR Oxygen Saturation 97% 05/27/2019 11:48 AM ESL PROFESSOR 2L Inhaled Oxygen Concentration - - Weight 49.6 kg (109 lb 6.4 oz) 05/27/2019 11:48 AM ESL PROFESSOR Height - - Body Mass Index 18.21 05/19/2019 3:24 PM ESL PROFESSOR documented in this encounter Functional Status * RETIRED Are you deaf or do you have serious difficulty hearing Answer Date of Assessment Author Status No 05/19/2019 10:18 PM ESL PROFESSOR Acti ve * RETIRED Are you blind or do you have serious difficulty seeing, even when wearing glasses? Answer Date of Assessment Author Status No 05/19/2019 10:18 PM ESL PROFESSOR Acti ve * Do you have serious difficulty walking or climbing stairs? Answer Date of Assessment Author Status Yes 05/19/2019 10:18 PM ESL PROFESSOR Sujatha Molina RN Active * Do you have difficulty dressing or bathing? Answer Date of Assessment Author Status Yes 05/19/2019 10:18 PM ESL PROFESSOR Sujatha Molina RN Active * Because of a physical, mental, or emotional condition, do you have difficulty doing errands alone such as visiting a doctor's office or shopping? Answer Date of Assessment Author Status Yes 05/19/2019 10:18 PM ESL PROFESSOR Sujatha Molina RN Active documented as of this encounter Mental Status * Because of a physical, mental, or emotional condition, do you have serious difficulty concentrating, remembering, or making decisions? Answer Entry Date Author Status No 05/19/2019 10:18 PM ESL PROFESSOR Sujatha Molina RN Active documented in this encounter Patient Instructions * Patient Instructions* Linda Santos APRN - 05/27/2019 11:20 AM ESL PROFESSOR Stop Flonase (fluticasone) nasal spray if you are on it. Start Sapello gel/spray or a moisturizing nasal spray as needed for dry nose. Nystatin for thrush. Use spacer with inhalers. Stop steroids. Call me for wheezing, cough, increased shortness of breath. Provider Plus is Sense[employer]. Obtain a pulse oximeter to monitor your oxygen levels. If your oxygen level (SpO2) is <88%, increase your oxygen flow rate by 1 or 2 liters, rest, and monitor. If your SpO2 remains low, call us; if severely low and is an accurate reading, go to ER. PROFESSOR PROFESSOR documented in this encounter Progress Notes * Linda Santos APRN - 05/27/2019 11:20 AM CST [facility] PULMONARY MEDICINE History Chief Complaint Patient presents with ??? Follow Up hospital f/u appt Valeria Deutsch is a 84-year-old female with a past medical history of tobacco use, peptic ulcerdisease, Sandra-Banegas tear, TB status post treatment, hypoxia who presents for follow-up. Here today for hospital follow-up. Timeline: 05/12/2019-05/16/2019: Admitted to [facility] for acute respiratory failure; probable COPD with exacerbation; azithromycin, prednisone taper, frequent bronchodilators, ICS/LABA. Discharged with O2. 05/19/2019-05/23/2019: Readmitted to [facility] for COPD exacerbation; doxycycline, steroids, Flonase, frequent bronchodilators. Discharge to SNF, patient refused to stay shortly after arrival, returned home. 05/27/2019: Office visit with ROMINA Dunlap; feeling better, dyspnea on exertion, occasional cough persist. On albuterol, Symbicort; completing doxycycline. Supplemental O2 at 2-4 L/min. Office spirometry revealed moderate obstruction. Complains of sore mouth. At initial visit while hospitalized on 05/16/2019: Notes routine dyspnea with exertion. Notes productive cough. Notes wheezing. Denies following with a primary care physician, denies ever having seen a senior software development manager. Up until recently, reports having an active lifestyle, caring for 2 great grandsons ages 5 and 4. Denies fever, chills, night sweats. Notes poor appetite over the past year with unintended weight loss. Denies hemoptysis history. Notes poor sleep quality, insomnia, frequent awakenings. Review of Systems Constitutional: Positive for malaise/fatigue and weight loss. Negative for chills and fever. HENT: Negative for congestion. Eyes: Negative for pain. Respiratory: Positive for cough, sputum production, shortness of breath and wheezing. Negative for hemoptysis. Cardiovascular: Negative for chest pain, palpitations, orthopnea and leg swelling. Gastrointestinal: Positive for heartburn. Musculoskeletal: Negative for falls. Skin: Negative for rash. Neurological: Negative for headaches. Endo/Heme/Allergies: Negative for environmental allergies. Psychiatric/Behavioral: The patient has insomnia. History Former smoker, quit 04/2019. 60+ pack year history. Notes having previously worked in the [employer] and [employer]. Notes having received treatment for tuberculosis in the past, reported being hospitalized for approximately 3 weeks in her use; treated for 2 years with antibiotics. Denies exposure to asbestos, mold, birds. Past Medical History: Diagnosis Date ??? COPD (chronic obstructive pulmonary disease) ([facility]) ??? Fall ??? Gastroesophageal reflux disease without esophagitis 05/14/2019 Hx of GI bleed ??? Hypertension ??? Vaginal delivery x 3 Past Surgical History: Procedure Laterality Date ??? NONE Social History Tobacco Use ??? Smoking status: Former Smoker Packs/day: 1.00 Years: 65.00 Pack years: 65.00 Types: Cigarettes Last attempt to quit: 04/2019 Years since quittin.1 ??? Smokeless tobacco: Never Used Substance Use Topics ??? Alcohol use: Not Currently ??? Drug use: Never Family History Family history unknown: Yes Current Outpatient Medications on File Prior to Visit Medication Sig Dispense Refill ??? albuterol sulfate HFA 108 (90 Base) MCG/ACT inhaler Inhale 2 puffs into the lungs 4 (four) times daily. 1 Inhaler 0 ??? amlodipine 5 MG tablet Take 1 tablet (5 mg total) by mouth daily. 30 tablet 0 ??? budesonide-formoterol 160-4.5 MCG/ACT inhaler Inhale 2 puffs into the lungs 2 (two) times daily. 1 Inhaler 0 ??? fluticasone propionate 50 MCG/ACT nasal spray 1 spray by Each Nostril route daily. 18.2 mL 2 ??? pantoprazole EC 40 MG tablet Take 1 tablet (40 mg total) by mouth daily. 30 tablet 0 ??? predniSONE 10 mg tablet Take 4 tablets (40 mg total) by mouth daily for 3 days, THEN 2 tablets (20 mg total) daily for 3 days, THEN 1 tablet (10 mg total) daily for 3 days. 21 tablet 0 No current facility-administered medications on file prior to visit. No Known Allergies There is no immunization history on file for this patient. Pertinent lab and imaging results Spirometry 05/27/2019: FVC 83%; FEV1 1.24 L, 65%; FEV1/FVC ratio 57% CXR 05/12/2019: -Emphysema -Probable right apical scarring Physical Exam Filed Vitals: 05/27/19 1148 BP: 116/65 Pulse: 108 Resp: 16 Temp: 96.9 ??F (36.1 ??C) SpO2: 97% Weight: 49.6 kg (109 lb 6.4 oz) Physical Exam: General: Thin WF, sitting comfortably in no acute distress, pleasant Neuro: alert, appropriate Head: NCAT EENT: no sinus tenderness to palpation; white patches on tongue Neck: supple, no jvd, no appreciable LAD Resp: non-labored, breath sounds distant, no wheezes/rales/rhonchi, prolonged expiratory phase; on oxygen at 2 L/min CV: S1,S2; RRR; no audible murmur, distant heart tones Abd: soft, NT, ND, BS+ Ext: pulses present and equal bilaterally; no clubbing, no edema Skin: no visible rashes Assessment / Plan 1. COPD with radiographic emphysema -Office spirometry with obstructive ventilatory defect -*Obtain PFT, 6-minute walk once Medicaid obtained in the near future -Continue albuterol HFA 2 puffs every 4 hours as needed for shortness of breath, wheezing -Continue Symbicort 160/4.5, 2 puffs twice daily -use spacer, rinse mouth after use -Start albuterol/ipratropium 4 times daily --cannot easily afford a LAMA inhaler as she is without insurance with prescription drug coverage -Obtain nebulizer -With recent exacerbations 05/2019: Completed long course of steroids during 2 hospital admissions,okay to stop p.o. steroids now, patient without wheezing 2. Chronic hypoxic respiratory failure -Patient continues to need, use, and benefit from supplemental oxygen -Hypoxia due to COPD -Currently at 2 L/min at rest, 4 L/min with activity -advised patient to obtain pulse oximeter for monitoring of oxygen levels at home -use moisturizing nasal spray to help with nasal irritation from oxygen 3. Oral candidiasis -Nystatin swish and swallow x10 days 4. Cigarette nicotine dependence, in remission -Encouraged continued cessation -65+ pack year history, quit 04/2019 Return to clinic to see ROMINA Hernandez in 6 to 8 weeks. ROMINA Hernandez PROFESSOR documented in this encounter Plan of Treatment Not on file documented as of this encounter Visit Diagnoses Diagnosis Pulmonary emphysema, unspecified emphysema type ([facility])- Primary Thrush Candidiasis of mouth Chronic respiratory failure with hypoxia ([facility]) Chronic respiratory failure Cigarette nicotine dependence in remission Tobacco use disorder documented in this encounter Care Teams Dust Mill Operator Relationship Specialty Start Date End Date None, Provider, PCP - General 05/12/19 07/16/19 documented as of this encounter
--- OUTSIDE RECORDS SUMMARY | 2024-04-30 19:33 | XMS_ITS | Encounter Summary ---
Author Organization [facility] Address Formerly [facility], [id number] [facility]. [place], [place] [address] [place] [address] Care Team Providers Care Gastroenterology Manager Name Role Phone None, Provider MD Primary Care Provider Unavaila ble Reason for Visit * Reason Comments Therapy Orders (SCAN) Encounter Details Date Type Department Care Team (Late st Contact Info) Description 05/18/2019 Scan [facility] Information Services [place], [place] [id number] Scanned, Documents Therapy Orders (SCAN) Social History Tobacco Use Types Packs/Day [...] Assessment Author Status No 05/12/2019 3:06 PM EQUIPMENT OPERATION INSTRUCTOR 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 Answer Date of Assessment Author Status No 05/12/2019 3:06 PM EQUIPMENT OPERATION INSTRUCTOR Activ e * Do you have serious [...] Zacarias RN Active documented in this encounter Plan of Treatment Not on file documented as of this encounter Procedures Procedure Name Priority Date/Time Associated Diagnosis Comments THERAPY GENERIC (SCAN ORDER) Routine 05/15/2019 documented in this encounter Results * THERAPY ORDERS (OTHER ORDERS TAB) (05/15/2019) us Documents Scanned SCANNING Final Result [facility] documented in this encounter Visit Diagnoses Not on filedocumented in this encounter Care Teams Gastroenterology Manager Relationship Specialty Start Date End Date None, Provider, PCP - General 05/12/19 07/16/19 documented as of this encounter
--- OUTSIDE RECORDS SUMMARY | 2024-04-30 19:33 | XMS_ITS | Encounter Summary ---
Author Organization [facility] Address [facility]. [place], [place] [address] [place] [address] Care Team Providers Care Delivery Room Clerk Name Role Phone None, Provider Primary Care Provider Unavaila ble Reason for Visit * Reason Onset Date Comments Orders 02/24/2020 Encounter Details Date Type Department Care Team (Late st Contact Info) Description 02/24/2020 Telephone [facility] Medical Group Multispecialty Care - [facility] [address] [facility] [place] [address] Glenroy Davila MD [address] [facility] [address] [place] [address] Orders Social History Tobacco Use Types Packs/Day [...] COVID-19? No / Unsure 02/24/2020 8:47 AM FLATBED STITCHER documented as of this encounter Functional Status * RETIRED Are you deaf or do you have serious difficulty hearing Answer Date of Assessment Author Status No 05/19/2019 10:18 PM FLATBED STITCHER Acti ve * RETIRED Are you blind or do you have serious difficulty seeing, even when wearing glasses? Answer Date of Assessment Author Status No 05/19/2019 10:18 PM FLATBED STITCHER Acti ve * Do you have serious difficulty walking or climbing stairs? Answer Date of Assessment Author Status Yes 05/19/2019 10:18 PM FLATBED STITCHER Sujatha Molina RN Active * Do you [...] Date Author Status No 05/19/2019 10:18 PM FLATBED STITCHER Sujatha Molina RN Active documented in this encounter Progress Notes * Delfina Diaz MA - 02/24/2020 9:32 AM CST Order faxed to pharmacy but also printed information if they wanted to purchase online if it would be cheaper. BED STITCHER * Delfina Diaz MA - 02/24/2020 9:31 AM CST ----- Message from lGenroy Davila MD sent at 02/24/2020 9:27 AM FLATBED STITCHER ----- Regarding: Acapella Please put in a DME order so that she can get an Acapella device. Glenroy Davila MD BED STITCHER documented in this encounter Plan of Treatment Not on file documented as of this encounter Visit Diagnoses Diagnosis COPD exacerbation ([facility])- Primary Obstructive chronic bronchitis with exacerbation documented in this encounter Care Teams Delivery Room Clerk Relationship Specialty Start Date End Date None, Provider, PCP - General 07/17/19 documented as of this encounter
--- OUTSIDE RECORDS SUMMARY | 2024-04-30 19:33 | XMS_ITS | Encounter Summary ---
Author Organization [facility] Address Formerly [facility]. [place], [place] [address] [place] [address] Care Team Providers Care Database Security Administrator Name Role Phone None, Provider Primary Care Provider Unavaila ble None, Provider Primary Care Provider Unavaila ble Encounter Details Date Type Department Care Team (Late st Contact Info) Description 05/17/2019 Hospital Follow-up Call [facility] [address] [facility], [place] [address] Shivani Arellano, Paper Mill Supervisor Social History Tobacco Use Types Packs/Day Years [...] Assessment Author Status No 05/12/2019 3:06 PM AUTO GLASS TECHNICIAN 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 Answer Date of Assessment Author Status No 05/12/2019 3:06 PM AUTO GLASS TECHNICIAN Activ e * Do you have serious [...] on filedocumented in this encounter Care Teams Database Security Administrator Relationship Specialty Start Date End Date None, ProviderMD PCP - General 05/12/19 07/16/19 None, ProviderMD PCP - General 07/17/19 documented as of this encounter
--- OUTSIDE RECORDS SUMMARY | 2024-04-30 19:33 | XMS_ITS | Encounter Summary ---
Author Organization [facility] Address formerly [facility]. [place], [place] [address] [place] [address] Care Team Providers Care Telephone Assembler Name Role Phone None, Provider Primary Care Provider Unavaila ble Encounter Details Date Type Department Care Team (Latest Contact Info) Description 05/27/2019 Travel Social History Tobacco Use Types Packs/Day [...] Assessment Author Status No 05/19/2019 10:18 PM DISTRICT COMMERCIAL SUPERINTENDENT Acti ve * RETIRED Are you blind or do you have serious difficulty seeing, even when wearing glasses? Answer Date of Assessment Author Status No 05/19/2019 10:18 PM DISTRICT COMMERCIAL SUPERINTENDENT Acti ve * Do you have serious difficulty walking or climbing stairs? Answer Date of Assessment Author Status Yes 05/19/2019 10:18 PM Sujatha Sandoval, СВЕТЛАНА Active * Do you have difficulty dressing or bathing? Answer Date of Assessment Author Status Yes 05/19/2019 10:18 PM Sujatha Sandoval, СВЕТЛАНА Active * Because of a physical, mental, or emotional condition, do you have difficulty doing errands alone such as visiting a doctor's office or shopping? Answer Date of Assessment Author Status Yes 05/19/2019 10:18 PM Sujatha Sandoval, RN Active documented as of this encounter Mental Status * Because of a physical, mental, or emotional condition, do you have serious difficulty concentrating, remembering, or making decisions? Answer Entry Date Author Status No 05/19/2019 10:18 PM Sujatha Sandoval, RN Active documented in this encounter Plan of Treatment Not on file documented as of this encounter Visit Diagnoses Not on filedocumented in this encounter Care Teams Telephone Assembler Relationship Specialty Start Date End Date None, Provider, PCP - General 05/12/19 07/16/19 documented as of this encounter
--- OUTSIDE RECORDS SUMMARY | 2024-04-30 19:33 | XMS_ITS | Encounter Summary ---
Author Organization [facility] Address [facility]6 [facility]. [place], [place] [address] [place] [address] Care Team Providers Care Marble Setter Name Role Phone None, Provider Primary Care Provider Unavaila ble Encounter Details Date Type Department Care Team (Latest Contact Info) Description 05/22/2019 Travel Social History Tobacco Use Types Packs/Day [...] Assessment Author Status No 05/19/2019 10:18 PM INTERNATIONAL ACCOUNTANT Acti ve * RETIRED Are you blind or do you have serious difficulty seeing, even when wearing glasses? Answer Date of Assessment Author Status No 05/19/2019 10:18 PM INTERNATIONAL ACCOUNTANT Acti ve * Do you have serious [...] Assessment Author Status Yes 05/19/2019 10:18 PM INTERNATIONAL ACCOUNTANT Linnemann, Tabath a D, RN Active documented as of this encounter [...] on filedocumented in this encounter Care Teams Marble Setter Relationship Specialty Start Date End Date None, Provider, PCP - General 05/12/19 07/16/19 documented as of this encounter
--- OUTSIDE RECORDS SUMMARY | 2024-04-30 19:33 | XMS_ITS | Encounter Summary ---
Author Organization [facility] Address [facility]. [place], [place] [address] [place] [address] Care Team Providers Care State Farm Agent Team Member Name Role Phone None, Provider MD Primary Care Provider Unavaila ble Reason for Visit * Reason Comments Lab (SCAN) Encounter Details Date Type Department Care Team (Latest Contact Info) Description 02/24/2020 Scan [facility] Scanned, Documents [...] COVID-19? No / Unsure 02/24/2020 8:47 AM ELECTRONIC EQUIPMENT REPAIRMEN documented as of this encounter Functional Status * RETIRED Are you deaf or do you have serious difficulty hearing Answer Date of Assessment Author Status No 05/19/2019 10:18 PM ELECTRONIC EQUIPMENT REPAIRMEN Acti ve * RETIRED Are you blind or do you have serious difficulty seeing, even when wearing glasses? Answer Date of Assessment Author Status No 05/19/2019 10:18 PM ELECTRONIC EQUIPMENT REPAIRMEN Acti ve * Do you have serious difficulty walking or climbing stairs? Answer Date of Assessment Author Status Yes 05/19/2019 10:18 PM ELECTRONIC EQUIPMENT REPAIRMEN Sujatha Molina, RN Active * Do you have difficulty [...] Associated Diagnosis Comments OUTSIDE LAB (SCAN ORDER) 02/24/2020 OUTSIDE LAB (SCAN ORDER) 02/24/2020 documented in this encounter Results * OUTSIDE LAB (SCAN) (02/24/2020) 02/24/2020 Narrative 02/24/2020 Ordered by an unspecified provider. us Documents Scanned SCANNING Final Result * OUTSIDE LAB (SCAN) (02/24/2020) 02/24/2020 Narrative 02/24/2020 Ordered by an unspecified provider. us Documents Scanned SCANNING Final Result documented in this encounter Visit Diagnoses Not on filedocumented in this encounter Care Teams State Farm Agent Team Member Relationship Specialty Start Date End Date None, Provider, PCP - General 07/17/19 documented as of this encounter
--- OUTSIDE RECORDS SUMMARY | 2024-04-30 19:34 | XMS_ITS | Encounter Summary ---
Author Organization [facility] Address [address] [place] [address] Care Team Providers Care Assessment Expert Name Role Phone Unavailable Primary Care Provider Unavailabl e Reason for Visit * Reason Onset Date Comments Medication Refill 04/21/2024 Encounter Details Date Type Department Care Team (Late Contact Info) Description 04/21/2024 Refill [facility] [address] [place] [address] Reymundo Lee MD [facility] [address] [place] [phone] Social History Tobacco Use Types Packs/Day Years Used Date Smoking Tobacco: Every Day Cigarettes 1 65.9 Started: 06/08/2023 Smokeless Tobacco: Never Alcohol Use Standard Drinks/Week Comments No 0 (1 standard drink = 0.6 oz pur e alcohol) Comments No Sex and Gender Information Value Date Recorded Sex Assigned at Not on file Legal Sex Female 5:47 PM CDT Gender Identity Not on file Sexual Orientation Not on file documented as of this encounter Plan of Treatment Upcoming Encounters Date Type Department Care Team (Late Contact Info) Description 05/05/2024 11:15 AM CONTINUOUS MINING OPERATOR Office Visit [facility] - [address] [place] [address] Reymundo Lee MD [address] [place] [phone] documented as of this encounter Visit Diagnoses Not on filedocumented in this encounter
--- OUTSIDE RECORDS SUMMARY | 2024-04-30 19:34 | XMS_ITS | Encounter Summary ---
Author Organization [facility] KALYNGigDropper Logan [facility] Address [address] [place] [address] Care Team Providers Care Sound Designer Name Role Phone Unavailable Primary Care Provider Unavailabl e Encounter Details Date Type Department Care Team (Late Contact Info) Description 08/30/2023 Orders Only [facility] Oncology and Hematology [facility] [address] [place] [address] Reymundo Lee MD [address] [place] [address] Move In History [address] [place] [phone] Dysuria (Primary Dx) Social History Tobacco Use Types Packs/Day Years Used Date Smoking Tobacco: Former Cigarettes 1 65.9 S tarted: 06/08/2023 Smokeless Tobacco: Never Alcohol Use Standard [...] (Late Contact Info) Description 05/05/2024 11:15 AM MATERIAL CONTROL ANALYST Office Visit [facility] Oncology and Hematology - [place] [address] [place] [address] Reymundo Lee MD [facility] [employer] [address] [place] [phone] Scheduled Orders Name Type Priority Associated Diagnoses Orde r Schedule URINALYSIS WITH REFLEX MICROSCOPIC Lab Routine Dysuria Expected: 08/30/2023, Expires: 08/29/2024 URINE CULTURE Microbiology Routine Dysuria Expected: 08/30/2023, Expires: 08/29/2024 documented as of this encounter Visit Diagnoses Diagnosis Dysuria- Primary documented in this encounter
--- OUTSIDE RECORDS SUMMARY | 2024-04-30 19:34 | XMS_ITS | Encounter Summary ---
Author Organization [facility] JAVIER Ford [facility] Address [address] [place] [address] Care Team Providers Care Pulp Making Plant Operator Name Role Phone Unavailable Primary Care Provider Unavailabl e Reason for Referral * MRI (Routine) - Closed Specialty Diagnoses / Procedures Referred By Contac t Referred To Contact Diagnoses Adrenal mass Procedures MRI ABDOMEN W WO CONTRAST CHG MRI ABDOMEN W/O & W/CONTRAST MATERIAL Reymundo Lee MD [address] [employer] [address] [employer] [address] [place] [address] Phone: tel: fax: [place] [phone] Referral ID Status Reason Start Date Expiration Date V isits Requested Visits Authorized [id number] Closed [facility] CTS 08/30/2023 09/29/2024 1 1 Reason for Visit * Reason Comments Follow Up Cancer Encounter Details Date Type Department Care Team (Late st Contact Info) Description 08/30/2023 2:45 PM CDT Office Visit [facility] Oncology and Hematology [facility] [address] [place] [address] [address] [place] [address] Reymundo Lee MD [address] [employer] [address] [place] [address] Adrenal mass (Primary Dx) Social History Tobacco Use Types Packs/Day Years Used Date Smoking Tobacco: Former Cigarettes 1 65.9 S tarted: 06/08/2023 Smokeless Tobacco: Never Tobacco Cessation:Counseling Given: Not Answered Alcohol Use Standard Drinks/Week Comments No 0 [...] Sign Reading Time Taken Comments Blood Pressure 141/73 08/30/2023 2:26 PM CDT Pulse 85 08/30/2023 2:23 PM CDT Temperature 36.6 ??C (97.8 ??F) 08/30/2023 2:23 PM CD T Respiratory Rate 16 08/30/2023 2:23 PM CDT Oxygen Saturation 95% 08/30/2023 2:23 PM CDT Inhaled Oxygen Concentration - - Weight 46.4 kg (102 lb 3.2 oz) 08/30/2023 2:23 P M CDT Height - - Body Mass Index 17.54 08/06/2023 1:55 PM CDT documented in this encounter Progress Notes * Reymundo Lee MD - 08/30/2023 3:09 PM CDT HEMATOLOGY / ONCOLOGY PROGRESS NOTE Patient Identification: Name: Valeria Deutsch Age: 88 y.o. 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 [employer] ration sequencing came back negative for mutation CURRENT TREATMENT Letrozole started July 26, 2023 TREATMENT HISTORY SUBJECTIVE Patient came to the office for follow-up visit after the PET scan was performed. She complain of tiredness and fatigue. She has some bruising in the substernal region without any apparent trauma or injury. No other new complaint. Review of system Constitutional: Patient did not mention fevers, sweats,,complain of tiredness and fatigue HEENT: Patient did not mention sinus congestion, hearing or vision problems Respiratory: Patient did not mention cough, dyspnea, wheeze Cardiovascular: Patient did not mention chest pain, exertional chest pressure/discomfort, nausea, syncope, shortness of breath GI: Patient did not mention constipation, diarrhea, dsyphagia, reflux symptoms, vomiting, melena : Patient did not mention dysuria, frequency, incontinence, urgency Integumentary system: no lymphadenopathy, sweats, flushing Musculoskeletal: Patient not mention: myalgia, arthralgia Neurological: Patient did not mention blurry or disturbed vision, numbness/weakness, dizziness Skin: No lumps, bumps or rashes. Objective: Vital signs in last 24 hours: As per nursing note Exam: General appearance: alert, cooperative, no distress, appears stated age Head: normocephalic, without obvious abnormality, atraumatic Eyes: conjunctivae/corneas clear, EOM's intact Ears: normal external ear canals AU Nose: Nares normal. Septum midline. Mucosa normal. No drainage or sinus tenderness Throat: Lips, mucosa, and tongue normal. Teeth and gums normal Neck: supple, symmetrical, trachea midline. Lungs: clear to auscultation bilaterally Heart: regular rate and rhythm, S1, S2 normal, no murmur, click, rub or gallop Abdomen: soft, non-tender. Bowel sounds normal. No masses, No organomegaly Extremities: extremities normal, atraumatic, no cyanosis or edema Skin: Skin color, texture, turgor normal. 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 [employer] ration sequencing came back negative for mutation. PET scan done on August 20 showed moderate increased uptake with 3.7 x 1.9 cm biopsy-proven right breast cancer along with 1 to 1.5 cm FDG avid nodule in the left adrenal gland suspicious for metastaticdisease. There is no other evidence of metastatic disease. I have discussed this case with Dr. Chris Harris radiology department. He suggested getting MRI with and without contrast to look into adrenal gland finding further. I will order the MRI. In the meantime she will continue treatment with letrozole. She has appointment with surgery on September 03. I will discuss MRI zeroth in 1 week. Based on the results of the MRI we will discuss further management that will include adding HER2/livan vidya. UTI. Will check a UA today. GERD. She is on Protonix and we will give her the refill while she is waiting to see the primary care physician. History of stroke. She is on aspirin and Plavix. I have recommended her to discuss with the neurologist for further continuation of double antiplatelet therapy. ? TOBACCO COUNSELING She is not a tobacco/nicotine user. 08/30/2023 Reymundo Lee MD 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 APPLIANCE SERVICE REPRESENTATIVE Office Visit [facility] Oncology and Hematology - [place] [address] [facility] [address] [place] [address] Reymundo Lee MD [address] [facility] [address] [place] [address] Scheduled Orders Name Type Priority Associated Diagnoses Orde r Schedule MRI ABDOMEN W WO CONTRAST Imaging Routine Adrenal mass Expected: 08/31/2023, Expires: 08/29/2024 documented as of this encounter Visit Diagnoses Diagnosis Adrenal mass- Primary Unspecified disorder of adrenal glands documented in this encounter
--- OUTSIDE RECORDS SUMMARY | 2024-04-30 19:34 | XMS_ITS | Encounter Summary ---
Author Organization [facility] [employer]YNKey Ingredient [employer] [facility] Address [address] [place] [address] Care Team Providers Care Inspector Publications Name Role Phone Unavailable Primary Care Provider Unavailabl e Reason for Visit * Reason Onset Date Comments Cancelled appt 10/01/2023 Encounter Details Date Type Department Care Team ( Contact Info) Description 10/01/2023 Telephone [facility] Oncology and Hematology [facility] [address] [facility] [address] [place] [address] Reymundo Lee MD [address] [facility] [address] [place] [address] Cancelled appt Social History Tobacco Use Types Packs/Day Years [...] on file documented as of this encounter Miscellaneous Notes * Telephone Encounter - Tiffanie Polk - 10/01/2023 9:22 AM CDT Shayy from [facility] called and stated that patient cancelled her ECHO appt and that they didnot want to do chemotherapy or the echo. I called the number that we have for patients son and had to leave a message. documented in this encounter Plan of Treatment Upcoming Encounters Date Type Department Care Team ( Contact Info) Description 05/05/2024 11:15 AM STUDENT LIFE DEAN Office Visit [facility] Oncology and Hematology - [place] [address] [facility] [facility] [address] [place] [address] eRymundo Lee MD [address] [facility] [address] [place] [address] documented as of this encounter Visit Diagnoses Not on filedocumented in this encounter
--- OUTSIDE RECORDS SUMMARY | 2024-04-30 19:34 | XMS_ITS | Encounter Summary ---
Author Organization [facility]3] KALYNSpikeSource [facility] Address [address] [place] [address] Care Team Providers Care Beverage Manager Name Role Phone Unavailable Primary Care Provider Unavailabl e Encounter Details Date Type Department Care Team (Late Contact Info) Description 01/21/2024 Orders Only [facility] Oncology and [facility] [address] [place] [address] Reymundo Lee MD [address] [place] [address] [employer] [address] [place] [address] Social History Tobacco Use Types Packs/Day [...] st Contact Info) Description 05/05/2024 11:15 AM POWER CHISEL OPERATOR Office Visit [facility] Oncology and Hematology [facility] [address] [place] [address] [place] [address] [place] [address] [employer] [address] [place] [address] documented as of this encounter Procedures Procedure Name Priority Date/Time Associated Diagnosis Comments COMPREHENSIVE METABOLIC PANEL Routine 01/17/2024 12:08 PM CDT documented in this encounter Results * COMPREHENSIVE METABOLIC PANEL (01/17/2024 12:08 PM CDT) Blood us Reymundo Lee MD CHEMISTRY ORDERABLES Final Resu lt documented in this encounter Visit Diagnoses Not on filedocumented in this encounter
--- OUTSIDE RECORDS SUMMARY | 2024-04-30 19:34 | XMS_ITS | Encounter Summary ---
Author Organization [facility] Address [address] [place] [address] Care Team Providers Care Supervisor Fireworks Assembly Name Role Phone Unavailable Primary Care Provider Unavailabl e Encounter Details Date Type Department Care Team (Late st Contact Info) Description 11/29/2023 External Device Data STL ABSTRACTION Provider, Abstract NO ADDRESS ON FILE Social History Tobacco Use Types Packs/Day Years [...] st Contact Info) Description 05/05/2024 11:15 AM COTTON WRINGER Office Visit [facility] Oncology and Hematology - [place] [address] [place] [address] [facility] [address] [place] [address] Reymundo Lee MD [address] [facility] [address] [place] [address] documented as of this encounter Visit Diagnoses Not on filedocumented in this encounter
--- OUTSIDE RECORDS SUMMARY | 2024-04-30 19:34 | XMS_ITS | Encounter Summary ---
Author Organization [facility] Address [address] [place] [address] Care Team Providers Care Electrical Mechanical Technician Name Role Phone Unavailable Primary Care Provider Unavailabl e Encounter Details Date Type Department Care Team (Late st Contact Info) Description 12/21/2023 Specialty Pharmacy [facility] [place] [address] [facility] [address] [place] [address] Sandra Alcantar, PHARMACIST Specialty Pharmacy Refill Coordination Social History Tobacco Use Types Packs/Day Years [...] as of this encounter Progress Notes * Elle Hutson - 12/21/2023 4:27 PM CDT [facility] [place] Initial Medication Dispense Note Valeria Deutsch 1935 Name of Medication, Strength, Formulation: LAPATINIB 250MG TABLETS Date of Initial Receipt of Medication 12/25/23 Permission to leave delivered package. No 120 quantity for 30 days supply Additional information: SHIPPING MED VIA UPS TO RECEIVE 12/25/23 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 INDUSTRIAL FURNACE FABRICATOR Office Visit [facility] Oncology and Hematology - [place] [address] [facility] [address] [place] [address] Reymundo Lee MD [address] [facility] [address] [place] [address] documented as of this encounter Visit Diagnoses Not on filedocumented in this encounter
--- OUTSIDE RECORDS SUMMARY | 2024-04-30 19:34 | XMS_ITS | Encounter Summary ---
Author Organization [facility] [address] [facility] Address [address] [place] [address] Care Team Providers Care Meter Readers Supervisor Name Role Phone Unavailable Primary Care Provider Unavailabl e Reason for Visit * Reason Onset Date Comments Medication Side Effects 12/18/2023 Encounter Details Date Type Department Care Team (Late st Contact Info) Description 12/18/2023 Telephone [facility] Oncology and Hematology - [place] [address] [facility] [address] [place] [address] Reymundo Lee MD [address] [facility] [address] [place] [address] Medication Side Effects Social History Tobacco Use Types Packs/Day Years [...] * Telephone Encounter - Tiffanie Polk - 12/18/2023 3:19 PM CDT Spoke with patients son Fabián and let him know the recommendations. He said that he was going to talk to his mom and let Dr. Lee know what they wanted to do at the follow up appointment on 12/20/23 * Telephone Encounter - Tiffanie Polk - 12/18/2023 3:19 PM CDT ----- Message from Dr. Reymundo Lee sent at 12/18/2023 2:29 PM CDT ----- Regarding: RE: Side Effects Some of the side effects are normal from letrozole including shakes and feeling chills. If she is not able to continue then she can hold the letrozole for couple of weeks to see if she Feels any better. You can also prescribe Zofran 4 mg to help her nausea. ----- Message ----- From: Tiffanie Polk Sent: 12/17/2023 1:50 PM CDT To: Reymundo Lee MD Subject: Side Effects For the last 10 days she has been having some nausea, shakes, and feeling of not able to get warm. She has not had any appetite and that she really does not have any taste when she does eat. Son Armen wanting to know if this normal on the letrozole? I asked if she had an zofran and he said that she did not have any prescribed for her. Please advise if this is normal or if there is something that can be done. 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 BANKER MASON Office Visit [facility] Oncology and Hematology - [place] [address] [facility] [address] [address] Reymundo Lee MD [address] [facility] [address] [place] [address] documented as of this encounter Visit Diagnoses Not on filedocumented in this encounter
--- OUTSIDE RECORDS SUMMARY | 2024-04-30 19:34 | XMS_ITS | Encounter Summary ---
Author Organization [facility] [employer] [facility] Address [address] [place] [address] Care Team Providers Care Tax Examining Technician Name Role Phone Unavailable Primary Care Provider Unavailabl e Reason for Visit * Reason Onset Date Comments Medication Refill 04/17/2024 Encounter Details Date Type Department Care Team (Late Contact Info) Description 04/17/[address] [facility] Oncology and Hematology [place] [address] [place] [address] Reymundo Lee MD [email or web address] [address] [place] [address] Social History Tobacco Use Types Packs/Day [...] (Late Contact Info) Description 05/05/2024 11:15 AM SERVICE DIRECTOR Office Visit [facility] Oncology and Hematology - [place] [address] [place] [address] Reymundo Lee MD [address] [place] [address] documented as of this encounter Visit Diagnoses Not on filedocumented in this encounter
--- OUTSIDE RECORDS SUMMARY | 2024-04-30 19:34 | XMS_ITS | Encounter Summary ---
Author Organization [facility] Address [address] [place] [address] Care Team Providers Care Sales Route Driver Name Role Phone Unavailable Primary Care Provider Unavailabl e Encounter Details Date Type Department Care Team (Late st Contact Info) Description 12/05/2023 External Device Data STL ABSTRACTION Provider, Abstract [...] st Contact Info) Description 05/05/2024 11:15 AM PERSONAL TRAINER Office Visit [facility] Oncology and Hematology - [place] [address] [place] [address] [facility] [address] [place] [address] Reymundo Lee MD [address] [facility] [address] [place] [address] documented as of this encounter Visit Diagnoses Not on filedocumented in this encounter
--- OUTSIDE RECORDS SUMMARY | 2024-04-30 19:34 | XMS_ITS | Encounter Summary ---
Author Organization [facility] Address [address] [place] [address] Care Team Providers Care Sql Manager Name Role Phone Unavailable Primary Care Provider Unavailabl e Encounter Details Date Type Department Care Team (Late st Contact Info) Description 08/07/2023 External Device Data STL ABSTRACTION Provider, Abstract [...] st Contact Info) Description 05/05/2024 11:15 AM CAN CUTTER Office Visit [facility] Oncology and Hematology - [place] [address] [place] [address] [facility] [address] [place] [address] Reymundo Lee MD [address] [facility] [address] [place] [address] documented as of this encounter Visit Diagnoses Not on filedocumented in this encounter
--- OUTSIDE RECORDS SUMMARY | 2024-04-30 19:34 | XMS_ITS | Encounter Summary ---
Author Organization [facility] [employer] [facility] Address [address] [place] [address] Care Team Providers Care Sewer System Supervisor Name Role Phone Unavailable Primary Care Provider Unavailabl e Encounter Details Date Type Department Care Team (Late Contact Info) Description 09/17/2023 Orders Only [facility] Oncology and [facility] [address] [place] [address] Reymundo Lee MD [address] [place] [address] [employer] [address] [place] [address] Social History Tobacco Use Types Packs/Day [...] st Contact Info) Description 05/05/2024 11:15 AM MONOMER PURIFICATION OPERATOR Office Visit [facility] Oncology [facility] Hematology [facility] [address] [place] [address] [place] [address] [place] [address] [employer] [address] [place] [address] documented as of this encounter Procedures Procedure Name Priority Date/Time Associated Diagnosis Comments MRI ABDOMEN Routine 09/14/2023 10:43 AM CDT documented in this encounter Results * MRI ABDOMEN (09/14/2023 10:43 AM CDT) Anatomical Region Laterality Modality Other Reymundo Lee MD MR ORDERABLES Final Result documented in this encounter Visit Diagnoses Not on filedocumented in this encounter
--- OUTSIDE RECORDS SUMMARY | 2024-04-30 19:34 | XMS_ITS | Encounter Summary ---
Author Organization [facility] Address [facility] [address] [place] [address] Care Team Providers Care Portrait Studio Photographer Name Role Phone Unavailable Primary Care Provider Unavailabl e Reason for Referral * Echocardiography (Urgent) - Closed Specialty Diagnoses / Procedures Referred By Contac t Referred To Contact Diagnoses 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, estrogen receptor positive, unspecified laterality, unspecified site of breast (CMS/HCC) Procedures ECHO COMPLETE - CONTRAST AND STRAIN IF INDICATED Reymundo Lee MD [address] [place] [phone] Phone: tel: fax: [place] [phone] Referral ID Status Reason Start Date Expiration Date V isits Requested Visits Authorized [id number] Closed STL CTS 09/25/2023 10/25/2024 1 1 * Eval and Treat (Routine) - Closed Specialty Diagnoses / Procedures Referred By Contac t Referred To Contact Oncology Diagnoses 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, estrogen receptor positive, unspecified laterality, unspecified site of breast (CMS/HCC) Procedures MN OFFICE/OUTPATIENT ESTABLISHED MOD MDM 30 MIN MN OFFICE/OUTPATIENT NEW MODERATE MDM 45 MINUTES Reymundo Lee MD [address] [place] [phone] Phone: tel: fax: Referral ID Status Reason Start Date Expiration Date V isits Requested Visits Authorized [id number] Closed STL CTS 09/25/2023 09/25/2024 1 1 Reason for Visit * Reason Comments Cancer Follow Up Encounter Details Date Type Department Care Team (Late st Contact Info) Description 09/25/2023 10:15 AM CDT Office Visit [facility] Oncology and Hematology - [place] [address] [facility] [address] [place] [address] Reymundo Lee MD [address] [facility] [address] [place] [address] 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, estrogen receptor positive, unspecified laterality, unspecified site of breast (CMS/HCC) (Primary Dx) Social History Tobacco Use Types [...] Sign Reading Time Taken Comments Blood Pressure 145/73 09/25/2023 10:40 AM CDT Pulse 83 09/25/2023 10:36 AM CDT Temperature 36.6 ??C (97.8 ??F) 09/25/2023 1 0:36 AM CDT Respiratory Rate 19 09/25/2023 10:3 6 AM CDT Oxygen Saturation 93% 09/25/2023 10: 36 AM CDT Inhaled Oxygen Concentration - - Weight 47.5 kg (104 lb 12.8 oz) 024 10:36 AM CDT Height - - Body Mass Index 17.99 08/06/2023 1:55 PM CDT documented in this encounter Progress Notes * Reymundo Lee MD - 09/25/2023 11:47 AM CDT HEMATOLOGY / ONCOLOGY PROGRESS NOTE Patient Identification: Name: Valeria Deutsch Age: 88 y.o. 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 Tempus NexGen ration sequencing came back negative for mutation CURRENT TREATMENT Letrozole started July 26, 2023 TREATMENT HISTORY SUBJECTIVE Patient to the office for follow-up visit after the MRI of the abdomen was done. She has been tolerating treatment with letrozole well. Denies any chest pain and shortness of breath. She has noticedsome shrinkage of the right breast mass. No other new complaints. Review of system Constitutional: Patient did not mention fevers, sweats,, weight and appetite stable, denies any tiredness and fatigue HEENT: Patient did not [...] dizziness Skin: No lumps, bumps or rashes. 12 point review of system was reviewed Objective: Vital signs in last 24 hours: [...] No lymphadenopathy Neuro: No obvious focal deficit Right breast mass has been shrinking and is smaller in size without any axillary lymphadenopathy. Exam as above PATH LABS Labs from July 25 showed [...] 19, 2023 that showed ER 90% positive MN 50% positive HER2/livan 3+ positive and Ki-67 of 14% invasive ductal carcinoma of the right breast mass at 9 o'clock position 3 cm from the nipple. Tempus [employer] ration sequencing came back negative for mutation. PET scan done on August 20 showed moderate increased uptake with 3.7 x 1.9 cm biopsy-proven right breast cancer along with 1 to 1.5 cm FDG avid nodule in the left adrenal gland suspicious for metastaticdisease. There is no other evidence of metastatic disease. MRI of the abdomen was done on September 13 that showed finding consistent with left adrenal adenoma and follow-up exam was recommended. Surgery input is also noted. Patient is not interested in surgery due to her age. I discussed preoperative chemotherapy and recommended chemotherapy with weekly Taxol 80 mg/m?? for 12 weeks with trastuzumab and then 1 year of trastuzumab maintenance. I am concerned about her tolerance to the chemo. Will order the echocardiogram and chemotherapy teaching. I will try to give chemowithout Mediport. After completion of chemo she will start treatment with letrozole. We will discuss surgery after completion of chemotherapy treatment. Follow-up with me with week #2 of chemotherapy. GERD. Stable on Protonix. History of stroke. Stable on Plavix and aspirin. Follow-up in 3 weeks. TOBACCO COUNSELING She is not a tobacco/nicotine user. 09/25/2023 Reymundo Lee MD 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 NAVAL AIRCREWMAN OPERATOR Office Visit [facility] Oncology and Hematology - [place] [address] [facility] [address] [place] [address] Reymundo Lee MD [address] [facility] [address] [place] [address] Scheduled Orders Name Type Priority Associated Diagnoses Orde r Schedule ECHO COMPLETE - CONTRAST AND STRAIN IF INDICATED Echocardiogram Stat 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, estrogen receptor positive, unspecified laterality, unspecified site of breast (CMS/HCC) 1 Occurrences starting 09/25/2023 until 09/24/2024 Scheduled Referrals Name Type Priority Associated Diagnoses Orde r Schedule AMB REFERRAL TO CHEMO TEACHING Outpatient Referral Routine 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, estrogen receptor positive, unspecified laterality, unspecified site of breast (CMS/HCC) Ordered: 09/25/2023 documented as of this encounter Visit Diagnoses Diagnosis 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
--- OUTSIDE RECORDS SUMMARY | 2024-04-30 19:34 | XMS_ITS | Encounter Summary ---
Author Organization [facility] Address [address] [place] [address] Care Team Providers Care Supervisor Blasting Name Role Phone Unavailable Primary Care Provider Unavailabl e Encounter Details Date Type Department Care Team (Late st Contact Info) Description 12/25/2023 External Device Data STL ABSTRACTION Provider, Abstract [...] st Contact Info) Description 05/05/2024 11:15 AM ASSISTANT PROFESSOR OF RADIOLOGY Office Visit [facility] Oncology and Hematology - [place] [address] [place] [address] [facility] [address] [place] [address] Reymundo Lee MD [address] [facility] [address] [place] [address] documented as of this encounter Visit Diagnoses Not on filedocumented in this encounter
--- OUTSIDE RECORDS SUMMARY | 2024-04-30 19:34 | XMS_ITS | Encounter Summary ---
Author Organization [facility] Address [address] [place] [address] Care Team Providers Care Paver Operator Name Role Phone Unavailable Primary Care Provider Unavailabl e Encounter Details Date Type Department Care Team (Late Contact Info) Description 02/14/2024 Specialty Pharmacy [facility] [address] [facility] [place] [address] Sandra Alcantar, PHARMACIST Specialty Pharmacy Refill Coordination [...] st Contact Info) Description 05/05/2024 11:15 AM DATA ANALYST Office Visit [facility] Oncology and Hematology - [place] [address] [place] [address] Reymundo Lee MD [address] [facility] [address] [place] [address] documented as of this encounter Visit Diagnoses Not on filedocumented in this encounter
--- OUTSIDE RECORDS SUMMARY | 2024-04-30 19:34 | XMS_ITS | Encounter Summary ---
Author Organization [facility] Address [address] [place] [address] Care Team Providers Care Machine Chocolate Molder Name Role Phone Unavailable Primary Care Provider Unavailabl e Encounter Details Date Type Department Care Team (Late st Contact Info) Description 01/01/2024 External Device Data STL ABSTRACTION Provider, Abstract [...] st Contact Info) Description 05/05/2024 11:15 AM REMELT FURNACE EXPEDITER Office Visit [facility] Oncology and Hematology - [place] [address] [place] [address] [facility] 200 [place] [address] Reymundo Lee MD [address] [facility] [address] [place] [address] documented as of this encounter Visit Diagnoses Not on filedocumented in this encounter
--- OUTSIDE RECORDS SUMMARY | 2024-04-30 19:34 | XMS_ITS | Encounter Summary ---
Author Organization [facility] Address [address] [place] [address] Care Team Providers Care Instrument Tech Name Role Phone Unavailable Primary Care Provider Unavailabl e Encounter Details Date Type Department Care Team ([facility] Contact Info) Description 08/22/[address] [facility] Oncology and Hematology [facility] [address] [place] [address] Reymundo Lee MD [address] [place] [address] [employer] [address] [place] [address] Social History Tobacco Use Types Packs/Day [...] (Late Contact Info) Description 05/05/2024 11:15 AM ORTHOPEDIC TECHNICIAN Office Visit [facility] Oncology and Hematology [place] [address] [place] [address] Reymundo Lee MD [address] [place] [address] [employer] [address] [place] [address] documented as of this encounter Procedures Procedure Name Priority Date/Time Associated Diagnosis Comments PET BONE IMG W CT SKL BSE MID THG Routine 08/21/2023 10:10 AM CDT documented in this encounter Results * PET BONE IMG W CT SKB (08/21/2023 10:10 AM CDT) Anatomical Region Laterality Modality Other us Reymundo Lee MD PE ORDERABLES Final Result documented in this encounter Visit Diagnoses Not on filedocumented in this encounter
--- OUTSIDE RECORDS SUMMARY | 2024-04-30 19:34 | XMS_ITS | Encounter Summary ---
Author Organization [facility] Address [address] [place] [address] Care Team Providers Care Fire Assistant Name Role Phone Unavailable Primary Care Provider Unavailabl e Encounter Details Date Type Department Care Team (Late Contact Info) Description 09/05/2023 Orders Only [facility] Oncology and [facility] [address] [place] [address] Reymundo Lee MD [address] [place] [address] [employer] [address] [place] [address] Social History Tobacco Use Types Packs/Day [...] st Contact Info) Description 05/05/2024 11:15 AM PRODUCT DESIGN SPECIALIST Office Visit [facility] Oncology [facility] Hematology [facility] [address] [place] [address] [place] [address] [place] [address] [employer] [address] [place] [address] documented as of this encounter Procedures Procedure Name Priority Date/Time Associated Diagnosis Comments URINE CULTURE Routine 08/30/2023 9:45 AM CDT documented in this encounter Results * URINE CULTURE (08/30/2023 9:45 AM CDT) Urine Reymundo Lee MD MICROBIOLOGY - GENERAL ORDERABL ES Final Result documented in this encounter Visit Diagnoses Not on filedocumented in this encounter
--- OUTSIDE RECORDS SUMMARY | 2024-04-30 19:34 | XMS_ITS | Encounter Summary ---
Author Organization [facility] Address [address] [place] [address] Care Team Providers Care Patient Advocate Name Role Phone Unavailable Primary Care Provider Unavailabl e Encounter Details Date Type Department Care Team (Late st Contact Info) Description 12/04/2023 External Device Data STL ABSTRACTION Provider, Abstract [...] st Contact Info) Description 05/05/2024 11:15 AM LOADER UNLOADER Office Visit [facility] Oncology and Hematology - [place] [address] [place] [address] [facility] [address] [place] [address] Reymundo Lee MD [address] [facility] [address] [place] [address] documented as of this encounter Visit Diagnoses Not on filedocumented in this encounter
--- OUTSIDE RECORDS SUMMARY | 2024-04-30 19:34 | XMS_ITS | Encounter Summary ---
Author Organization [facility] Address [address] [place] [address] Care Team Providers Care Commercial Project Manager Name Role Phone Unavailable Primary Care [...] st Contact Info) Description 05/05/2024 11:15 AM BLOOD BANK CALENDAR CONTROL CLERK Office Visit [facility] Oncology and Hematology - [place] [address] [place] [address] [facility] [address] [place] [address] Reymundo Lee MD [address] [facility] [address] [place] [address] documented as of this encounter Visit Diagnoses Not on filedocumented in this encounter
--- OUTSIDE RECORDS SUMMARY | 2024-04-30 19:34 | XMS_ITS | Encounter Summary ---
Author Organization [facility] Address [address] [place] [address] Care Team Providers Care Technical Asst Name Role Phone Unavailable Primary Care Provider Unavailabl e Encounter Details Date Type Department Care Team (Late Contact Info) Description 04/21/2024 Specialty Pharmacy [facility] Special[facility] [address] [facility] [place] [address] Tiffanie Cooper, PHARMACIST Social History Tobacco Use Types Packs/Day Years [...] st Contact Info) Description 05/05/2024 11:15 AM FENCE INSTALLER FOREMAN Office Visit [facility] Oncology and Hematology - [place] [address] [place] [address] Reymundo Lee MD [address] [facility] [address] [place] [address] documented as of this encounter Visit Diagnoses Not on filedocumented in this encounter
--- OUTSIDE RECORDS SUMMARY | 2024-04-30 19:34 | XMS_ITS | Encounter Summary ---
Author Organization [facility] [employer] Address [address] [place] [address] Care Team Providers Care Boiler Operators Supervisor Name Role Phone Unavailable Primary Care Provider Unavailabl e Reason for Visit * Reason Onset Date Comments MRI 08/30/2023 Encounter Details Date Type Department Care Team (Late st Contact Info) Description 08/30/2023 Telephone [facility] Oncology and Hematology - [place] [address] [facility] 200 [place] [address] Reymundo Lee MD [address] [facility] [address] [place] [address] MRI Social History Tobacco Use Types Packs/Day Years [...] * Telephone Encounter - Tiffanie Polk - 08/30/2023 3:38 PM CDT Spoke with patient son Fabián and he is aware of recommendations. * Telephone Encounter - Tiffanie Polk - 08/30/2023 3:38 PM CDT ----- Message from Reymundo Lee MD sent at 08/30/2023 3:15 PM CDT ----- Please call patient and let her know that I have spoken with the radiologist and we will order the MRI of abdomen to look into the adrenal glands finding further. Biopsy of this mass will be very difficult to due to the location. 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 CATSHOVEL DRIVER Office Visit [facility] Oncology and Hematology - [place] [address] [facility] [address] [place] [address] Reymundo Lee MD [address] [facility] [address] [place] [address] documented as of this encounter Visit Diagnoses Not on filedocumented in this encounter
--- OUTSIDE RECORDS SUMMARY | 2024-04-30 19:34 | XMS_ITS | Encounter Summary ---
Author Organization [facility] Address [address] [place] [address] Care Team Providers Care Electric Truck Crane Operator Name Role Phone Unavailable Primary Care [...] st Contact Info) Description 05/05/2024 11:15 AM ELECTRICAL TECHNICIAN INSTRUCTOR Office Visit [facility] Oncology and Hematology - [place] [address] [place] [address] [facility] 200 [place] [address] Reymundo Lee MD [address] [facility] [address] [place] [address] documented as of this encounter Visit Diagnoses Not on filedocumented in this encounter
--- OUTSIDE RECORDS SUMMARY | 2024-04-30 19:34 | XMS_ITS | Encounter Summary ---
Author Organization [facility]in[facility] Address [address] [place] [address] Care Team Providers Care Coffee Supervisor Name Role Phone Unavailable Primary Care Provider Unavailabl e Reason for Visit * Reason Comments Follow Up Cancer Encounter Details Date Type Department Care Team (Late st Contact Info) Description 01/24/2024 10:00 AM CDT Office Visit [facility] Oncology and Hematology - [place] [address] [facility] [address] [place] [address] Reymundo Lee MD [address] [facility] [address] [place] [address] Malignant neoplasm of breast in [...] Sign Reading Time Taken Comments Blood Pressure 149/79 01/24/2024 10:32 AM CDT Pulse 69 01/24/2024 10:24 AM CDT Temperature 36.3 ??C (97.3 ??F) 01/24/2024 10:24 AM C DT Respiratory Rate 17 01/24/2024 10:24 AM CDT Oxygen Saturation 94% 01/24/2024 10:24 AM CDT Inhaled Oxygen Concentration - - Weight 47.3 kg (104 lb 3.2 oz) 01/24/2024 10:24 AM CDT Height - - Body Mass Index 17.89 08/06/2023 1:55 PM CDT documented in this encounter Progress Notes * Reymundo Lee MD - 01/24/2024 11:00 AM CDT HEMATOLOGY / ONCOLOGY PROGRESS NOTE Patient Identification: Name: Valeria Deutsch Age: 88 y.o. Sex: female : 1935 DIAGNOSIS Triple positive metastatic invasive ductal carcinoma of the right breast status post biopsy done onApr2023 that showed ER 90% positive SD 50% positive HER2/livan 3+ positive and Ki-67 of 14% invasive ductal carcinoma of the right breast mass at 9 o'clock position 3 cm from the nipple. [employer] Nex[employer] ration sequencing came back negative for mutation CURRENT TREATMENT Letrozole started July 26, 2023 Lapatinib 1000 mg daily started December 20, 2023 TREATMENT HISTORY SUBJECTIVE Patient came to the office for follow-up visit. She has been taking letrozole and lapatinib daily and tolerating it well. Denies any nausea vomiting. Denies any diarrhea and constipation. Complain of some right chest wall discomfort and intermittent headaches and lightheadedness with dizziness. Noother new complaints. Review of system Constitutional: Patient [...] mention constipation, diarrhea, dsyphagia, reflux symptoms, vomiting, melena, complain of occasional nausea : Patient did not mention dysuria, frequency, incontinence, urgency Integumentary system: no lymphadenopathy, sweats, flushing Musculoskeletal: Patient not mention: myalgia, arthralgia Neurological: Patient did not mention blurry or disturbed vision, complain of occasional headaches along with lightheadedness and dizziness Skin: No lumps, bumps or rashes. [...] No obvious focal deficit Right breast mass looks much smaller and harder. Left breast no masses or lymphadenopathy. Exam as above PATH LABS Labs from July 25 showed WBC 5.8 hemoglobin 11.4 platelet 351,000 creatinine 0.7 CA 15-3 66 TSH 7.7 total bilirubin 0.3 Labs from December 05 showed WBC 5.8 hemoglobin 14 platelet 252,000 creatinine 0.9 Labs from January 16 showed CA 15-3 31 total bilirubin 0.5 creatinine 0.7 WBC 5.0 hemoglobin 13.2 platelet 233,000 Assessment: Plan: Patient Active Problem List Diagnosis Date Noted Sandra-Banegas tear 07/20/2015 Duodenitis without hemorrhage 07/20/2015 Dizziness Pharyngoesophageal dysphagia 07/19/2015 Left leg cellulitis 07/19/2015 Hematemesis 07/19/2015 Tobacco abuse 07/19/2015 Sciatica of left side 07/19/2015 Weight loss 07/19/2015 Triple positive metastatic invasive ductal carcinoma of the right breast status post biopsy done onJuly 19, 2023 that showed ER 90% positive SD 50% positive HER2/livan 3+ positive and Ki-67 [...] adrenal adenoma and follow-up exam was recommended. Patient declined surgery. Patient also declined chemotherapy with Taxol and trastuzumab. She started letrozole in July 2023. Lapatinib 1000 mg daily started on December 20, 2023. Patient has been tolerating treatment well. There is no evidence of relapse of breast cancer on my examination. Labs including tumor marker stable. I will repeat labs again in 3 months. GERD. Stable on Protonix. History of stroke. Patient is on aspirin and Plavix. She will follow-up with a neurologist. Follow-up in 3 months. 01/24/2024 Reymundo Lee MD 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 DRAFTING DETAILER Office Visit [facility] Oncology and Hematology [facility] [address] [place] [address] [address] [place] [phone] Reymundo Lee MD [address] [facility] [address] [place] [address] Scheduled Orders Name Type Priority Associated Diagnoses Orde r Schedule CBC WITH DIFFERENTIAL Lab Stat 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, estrogen receptor positive, unspecified laterality, unspecified site of breast (CMS/HCC) Expected: 04/17/2024, Expires: 01/23/2025 CANCER ANTIGEN 15-3 Lab Routine 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, estrogen receptor positive, unspecified laterality, unspecified site of breast (CMS/HCC) Expected: 04/17/2024, Expires: 01/23/2025 COMPREHENSIVE METABOLIC PANEL Lab Stat 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, estrogen receptor positive, unspecified laterality, unspecified site of breast (CMS/HCC) Expected: 04/17/2024, Expires: 01/23/2025 documented as of this encounter Visit Diagnoses Diagnosis 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
--- OUTSIDE RECORDS SUMMARY | 2024-04-30 19:34 | XMS_ITS | Encounter Summary ---
Author Organization [facility] Address [address] [place] [address] Care Team Providers Care Branch Service Associate Name Role Phone Unavailable Primary Care Provider Unavailabl e Reason for Visit * Reason Comments Med Refill Encounter Details Date Type Department Care Team (Late Contact Info) Description 03/15/2024 Refill [facility] Oncology and Hematology [place] [address] [place] [address] Reymundo Lee MD [address] [place] [address] [address] Social History Tobacco Use Types Packs/Day [...] (Late Contact Info) Description 05/05/2024 11:15 AM PHARMACY SCHEDULER Office Visit [facility] Oncology and Hematology - [place] [address] [place] [address] Reymundo Lee MD [facility] [address] [place] [id number] documented as of this encounter Visit Diagnoses Not on filedocumented in this encounter
--- OUTSIDE RECORDS SUMMARY | 2024-04-30 19:34 | XMS_ITS | Encounter Summary ---
Author Organization [facility] Address [address] [place] [address] Care Team Providers Care Vermin Exterminator Name Role Phone Unavailable Primary Care Provider Unavailabl e Encounter Details Date Type Department Care Team (Late st Contact Info) Description 12/20/2023 4:30 PM CDT Telephone Check Up [facility] Oncology and Hematology - [place] [address] [facility] [address] [place] [address] Reymundo Lee MD [address] [facility] [address] [place] [address] Malignant neoplasm of breast in [...] as of this encounter Progress Notes * Reymundo Lee MD - 12/20/2023 5:27 PM CDT HEMATOLOGY / ONCOLOGY PROGRESS NOTE Patient Identification: Name: Valeria Deutsch Age: 88 y.o. 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 [employer] ration sequencing came back negative for mutation CURRENT TREATMENT Letrozole started July 26, 2023 Lapatinib 1000 mg daily started December 20, 2023 TREATMENT HISTORY SUBJECTIVE This is a phone visit with patient. She has some nausea in the morning. Denies any chest pain and shortness of breath. No diarrhea and constipation. No other new complaints. Review of system [...] 24 hours: As per nursing note Exam: This is a phone visit [facility] Labs from July 25 showed WBC 5.8 hemoglobin 11.4 platelet 351,000 creatinine 0.7 CA 15-3 66 TSH 7.7 total bilirubin 0.3 Labs from December 05 showed WBC 5.8 hemoglobin 14 platelet 252,000 creatinine 0.9 @IMAGEIMP@ Assessment: Plan: Patient Active Problem List Diagnosis Date Noted Sandra-Banegas tear 07/20/2015 Duodenitis without hemorrhage 07/20/2015 Dizziness Pharyngoesophageal dysphagia 07/19/2015 Left leg cellulitis 07/19/2015 Hematemesis 07/19/2015 Tobacco abuse 07/19/2015 Sciatica of left side 07/19/2015 Weight loss 07/19/2015 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 She started letrozole in July 2023. Echocardiogram showed normal ejection fraction. I will start lapatinib 1000 mg daily. We will startwith a low-dose due to patient age and potential side effects. I will repeat labs again in 4 weeks. GERD. Stable on Protonix. History of stroke. Stable on aspirin and Plavix. Follow-up in 4 weeks. 12/20/2023 Reymundo Lee MD This encounter was completed via audio-only two way synchronous communication. Patient's identity confirmed yes Patient gave verbal consent to have these services billed to their insurance and expressed understanding that co-insurance and deductible may apply: yes Time spent by the provider delivering the care documented in this encounter 20 minutes. 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 RN TRANSITIONAL CARE Office Visit [facility] Oncology and Hematology - [place] [address] [facility] [address] [place] [address] Reymundo Lee MD [address] [facility] [address] [place] [address] Scheduled Orders Name Type Priority Associated Diagnoses Orde r Schedule CBC WITH DIFFERENTIAL Lab Stat 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, estrogen receptor positive, unspecified laterality, unspecified site of breast (CMS/HCC) Expected: 01/17/2024, Expires: 12/19/2024 COMPREHENSIVE METABOLIC PANEL Lab Stat 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, estrogen receptor positive, unspecified laterality, unspecified site of breast (CMS/HCC) Expected: 01/17/2024, Expires: 12/19/2024 documented as of this encounter Visit Diagnoses Diagnosis 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
--- OUTSIDE RECORDS SUMMARY | 2024-04-30 19:34 | XMS_ITS | Encounter Summary ---
Author Organization [facility] Address [address] [place] [address] Care Team Providers Care Sales Representative Consultant Name Role Phone Unavailable Primary Care Provider Unavailabl e Encounter Details Date Type Department Care Team ([facility] Contact Info) Description 08/21/2023 Orders Only [facility] Oncology and Hematology [facility] [address] [place] [address] Reymundo Lee MD [address] [place] [address] Repair Report [address] [place] [address] Social History Tobacco Use Types Packs/Day [...] (Late Contact Info) Description 05/05/2024 11:15 AM PYRIDINE RECOVERY OPERATOR Office Visit [facility] Oncology and Hematology [place] [address] [place] [address] Reymundo Lee MD [address] [place] [address] Repair Report [address] [place] [address] documented as of this encounter Procedures Procedure Name Priority Date/Time Associated Diagnosis Comments GLUCOSE LEVEL Routine 08/21/2023 1:17 PM CDT documented in this encounter Results * GLUCOSE LEVEL (08/21/2023 1:17 PM CDT) Blood Reymundo Lee MD CHEMISTRY ORDERABLES Final Resu lt documented in this encounter Visit Diagnoses Not on filedocumented in this encounter
--- OUTSIDE RECORDS SUMMARY | 2024-04-30 19:34 | XMS_ITS | Encounter Summary ---
Author Organization [facility] Address [address] [place] [address] Care Team Providers Care Manager Gift Name Role Phone Unavailable Primary Care Provider Unavailabl e Reason for Visit * Reason Comments Cancer Follow Up Encounter Details Date Type Department Care Team (Late st Contact Info) Description 12/06/2023 2:30 PM CDT Office Visit [facility] Oncology and Hematology - [place] [address] [facility] [address] [place] [address] Reymundo Lee MD [address] [facility] [address] [place] [address] 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, estrogen receptor positive, unspecified laterality, unspecified site of breast (CMS/HCC) (Primary Dx) Social History Tobacco Use Types Packs/Day Years Used Date Smoking Tobacco: Every Day Cigarettes 1 65.9 Started: 06/08/2023 Smokeless Tobacco: Never Tobacco Cessation:Ready to Q uit: Not Asked; Counseling Given: Not Answered Alcohol Use Standard Drinks/Week [...] Sign Reading Time Taken Comments Blood Pressure 124/77 12/06/2023 2:39 PM CDT Pulse 86 12/06/2023 2:39 PM CDT Temperature 36.7 ??C (98 ??F) 12/06/2023 2:39 PM CDT Respiratory Rate 16 12/06/2023 2:39 PM CDT Oxygen Saturation 90% 12/06/2023 2:39 PM CDT Inhaled Oxygen Concentration - - Weight 46.7 kg (103 lb) 12/06/2023 2:39 PM CDT Height - - Body Mass Index 17.68 08/06/2023 1:55 PM CDT documented in this encounter Progress Notes * Reymundo Lee MD - 12/06/2023 4:30 PM CDT HEMATOLOGY / ONCOLOGY PROGRESS NOTE Patient Identification: Name: Valeria Deutsch Age: 88 y.o. Sex: female : 1935 DIAGNOSIS Triple positive invasive ductal carcinoma of the right breast status post biopsy done on July 19, 2023 that showed ER 90% positive AK 50% positive HER2/livan 3+ positive and Ki-67 of 14% invasive ductal carcinoma of the right breast mass at 9 o'clock position 3 cm from the nipple. [employer] ration sequencing came back negative for mutation CURRENT TREATMENT Letrozole started July 26, 2023 TREATMENT HISTORY SUBJECTIVE Patient came to the office for follow-up visit. She has been tolerating letrozole well. Denies any hot flashes or night sweats. She went to the ER last week with UTI symptoms. No other new complaints. Review of system [...] No obvious focal deficit Right breast mass seems to be shrinking and getting smaller without any axillary lymphadenopathy. Exam as above [...] 19, 2023 that showed ER 90% positive AK 50% positive HER2/livan 3+ positive and Ki-67 [...] trastuzumab. She started letrozole in July 2023. Patient has been tolerating letrozole well with some clinical improvement in the right breast mass.Previously she refused echocardiogram. Now she is okay to have echocardiogram. If her echocardiogram comes back normal then we will start her on lapatinib. I will talk to her next week. I will order labs including CA 15-3 on return to clinic in 2 months as well. GERD. Stable on Protonix. History of stroke. Stable on Plavix and aspirin. Phone visit in 1 week 12/06/2023 Reymundo Lee MD 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 GLASS INSPECTOR Office Visit [facility] Oncology and Hematology [facility] [address] [facility] [address] [place] [address] Reymundo Lee MD [address] [facility] [address] [place] [address] Scheduled Orders Name Type Priority Associated Diagnoses Orde r Schedule CANCER ANTIGEN 15-3 Lab Routine 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, estrogen receptor positive, unspecified laterality, unspecified site of breast (CMS/HCC) Expected: 01/31/2024, Expires: 12/05/2024 CBC WITH DIFFERENTIAL Lab Stat 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, estrogen receptor positive, unspecified laterality, unspecified site of breast (CMS/HCC) Expected: 01/31/2024, Expires: 12/05/2024 COMPREHENSIVE METABOLIC PANEL Lab Stat 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, estrogen receptor positive, unspecified laterality, unspecified site of breast (CMS/HCC) Expected: 01/31/2024, Expires: 12/05/2024 documented as of this encounter Visit Diagnoses Diagnosis 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
--- OUTSIDE RECORDS SUMMARY | 2024-04-30 19:34 | XMS_ITS | Encounter Summary ---
Author Organization [facility] Address [address] [place] [address] Care Team Providers Care Material Handling Warehouse Supervisor Name Role Phone Unavailable Primary Care Provider Unavailabl e Reason for Visit * Reason Onset Date Comments Urinary Pain 01/16/2024 Encounter Details Date Type Department Care Team (Late st Contact Info) Description 01/16/2024 Telephone [facility] Oncology and Hematology - [place] [address] [facility] [address] [place] [address] Reymundo Lee MD [address] [facility] [address] [place] [address] Urinary Pain Social History Tobacco Use Types Packs/Day Years [...] * Telephone Encounter - Tiffanie Polk - 01/16/2024 1:44 PM CDT Spoke with patients son and he states that patient has been having symptoms of UTI. He said that she has a lot of burning when she goes to the bathroom and also she has some itching. I let him know that I would put in for a urine test and they could come up and get that drawn and then we could go from there if she had a UTI and what the next steps would be. Fabián verbalized understanding with no further questions. 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 STUDIO OPERATIONS MANAGER Office Visit [facility] Oncology and Hematology - [place] [address] [facility] [address] [place] [address] Reymundo Lee MD [address] [facility] [address] [place] [address] documented as of this encounter Visit Diagnoses Not on filedocumented in this encounter
--- OUTSIDE RECORDS SUMMARY | 2024-04-30 19:34 | XMS_ITS | Encounter Summary ---
Author Organization [facility] Address [address] [place] [address] Care Team Providers Care Qualitative Researcher Name Role Phone Unavailable Primary Care Provider Unavailabl e Encounter Details Date Type Department Care Team (Late st Contact Info) Description 12/24/2023 Specialty Pharmacy [facility] [place] [address] [facility] [address] [place] [address] Ligia Cassidy, PHARMACIST Specialty Pharmacy Clinical Assessment Social History Tobacco Use Types Packs/Day Years [...] as of this encounter Progress Notes * Ligia Cassidy, PHARMACIST - 12/24/2023 9:51 AM CDT [facility] Clinical Pharmacist Initial Assessment Oncology Therapy Patient Name: Valeria Deutsch Medication Information Specialty Medication / Dose / Frequency: TYKERB 1000 MG PO DAILY Indication: BREAST CANCER Therapy Start Date: 12/24 Pertinent Medical History: N/A No Known Allergies Current Outpatient Medications on File Prior to Visit Medication Sig Dispense Refill lapatinib (TYKERB) 250 mg tablet Take 4 Tablets (1,000 mg) by mouth daily before breakfast. 120 Tablet 4 ondansetron (ZOFRAN ODT) 4 mg Tablet, Rapid Dissolve Take 1 Tablet (4 mg) by mouth every 8 hours asneeded for Nausea/Emesis. Dissolve tablet on top of tongue, then swallow with saliva. 30 Tablet 1 ferrous sulfate 325 mg (65 mg iron) tablet Take 325 mg by mouth daily. letrozole (FEMARA) 2.5 mg tablet Take 1 Tablet (2.5 mg) by mouth daily. 90 Tablet 3 pantoprazole (PROTONIX) 40 mg Tablet, Delayed Release (E.C.) Take 1 Tablet (40 mg) by mouth daily. 60 Tablet 2 aspirin (ECOTRIN EC) 81 mg Tablet, Delayed Release (E.C.) Take 81 mg by mouth daily. clopidogreL (PLAVIX) 75 mg Tablet Take 75 mg by mouth. multivitamin (DAILY-CINTHYA) tablet Take 1 Tablet by mouth daily. No current facility-administered medications on file prior to visit. Patient Active Problem List Diagnosis Code Pharyngoesophageal dysphagia R13.14 Left leg cellulitis L03.116 Hematemesis K92.0 Tobacco abuse Z72.0 Sciatica of left side M54.32 Weight loss R63.4 Dizziness R42 Sandra-Banegas tear K22.6 Duodenitis without hemorrhage K29.80 Clinical Assessment Therapy Specific Counseling and Monitoring: Drug indications and pharmacology Treatment indication and possible outcomes of therapy Inform patient on treatment indication specific to their medical condition and possible treatment outcomes. Medication specifics Drug Name lapatinib(Tykerb) How supplied tablets Route of administration oral Duration of treatment Inform patient on duration of therapy for their medical condition. Storage precautions Advise patient to store at room temperature. Storage precautions Excursions permitted from 15 degrees C to 30 degrees C (59 degrees F to 86 degrees F). Special handling/disposal No special handling precautions Special handling/disposal Inform patient on proper disposal. Administration precautions Drug/food interactions Advise patient to avoid drinking grapefruit juice or food containing grapefruit while on therapy. Inform patient on actions for missed medication dose. Advise patient to take on an empty stomach; 1 hour before or at least 1 hour after food intake. Common adverse events Inform patient on common adverse reactions and to report if any become severe. With capecitabine combination, most common reactions include diarrhea, hand-foot skin reaction, nausea, rash, vomiting, and fatigue. Inform patient on common adverse reactions and to report if any become severe. With letrozole combination, most common reactions include diarrhea, rash, nausea, and fatigue. Zofran sent to local [facility] Inform patient of possible side effect mitigation strategies. Severe adverse reactions Advise patient to report symptoms of hepatotoxicity (yellow eyes, dark urine, pale stools, nausea, abdominal pain, anorexia). Inform patient on the risk of left ventricular dysfunction and to report any shortness of breath, palpitations, and/or fatigue. Inform patient on the risk of severe diarrhea and to report immediately any change in bowel pattern. Instruct patient to have antidiarrheal medications on hand. Advise patient to report signs and symptoms of interstitial pneumonitis (e.g., cough, trouble breathing, chest pain). Inform patient on risk and to report on signs or symptoms of QT prolongation (e.g. fast/irregular heartbeat, seizures, severe dizziness, or fainting). Advise patient to immediately report symptoms of severe skin reaction (e.g. blisters, peeling skin,mouth ulcers). Drug/OTC interactions Advise patient to inform healthcare provider of all medication they take, including OTC products, vitamins and herbal drugs (e.g., Anand's Wort). Advise females of reproductive potential to use effective contraception during treatment and for 1 week following the final dose. Advise female patient to immediately contact healthcare provider if she becomes or suspects that she may be . Lactating mother Advise lactating women to avoid during treatment. Avoid for at least 1 week after the last dose. Additional warnings Advise patient to complete necessary lab work at the intervals requested by their physician and to practice medication adherence. Inform patient of any pre-existing conditions where treatment should be avoided. Inform patient on vaccines requirements prior to treatment. Spoke to son, Fabián, who helps manage her medications - discussed dosing, administration, and commonside effects. Therapeutic Goals: Prolongation of Survival: Extending overall life expectancy beyond typical prognosis., Improvement in Quality of Life: Enhancing physical, emotional, and social well-being., and Prevention of Complications: Minimizing the risk or severity of treatment-related or disease-related complications. Pharmacist conducted an assessment prior to first fill of the medication to determine the appropriateness of therapy. Factors evaluated include medication prescribed, treatment diagnosis, currently prescribed medications (including prescription and OTC meds detailed above), reported/documented allergies, pertinent medical history, patient's ability to self-administer medication, and therapeutic goals based on possible outcomes of therapy. Given the patient's treatment diagnosis, concurrent medications, comorbidities, reported/documentedallergies, and pertinent medical history, therapy is appropriate as currently prescribed. Patient is able to receive or self-administer medication as prescribed. No physical, environmental, financial, or psychosocial barriers identified that would be deemed a significant impediment to therapy. Medication is appropriate as prescribed and will be dispensed. Upon Initial Fill, the Patient/Caregiver is provided information via the Welcome Packet and verbal discussion with pharmacy co-workers regarding: Enrollment in the Patient Management Program Contacting pharmacy representatives Expected [id number] costs Nieves mendoza of medication (upon request) Filling and refilling a prescription Obtaining order status and information regarding potential delays Transferring prescriptions Reporting a suspected medication issue Offer of counseling from a Clinical Specialty Pharmacist upon request and as needed Patient/Caregiver provided education regarding medication therapy via written materials, verbal instruction, and pharmacist counseling. This initial and ongoing education includes: Expectations and potential outcomes of therapy Proper use, administration, and duration of therapy Potential side effects and side effect management Missed dose management Safe handling, storage, and disposal of medication Assessment completed by KIKI Cox on 12/24/23 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 CHARGING CAR OPERATOR Office Visit [facility] Oncology and Hematology - [place] [address] [facility] [address] [place] [address] Reymundo Lee MD [address] [facility] [address] [place] [address] documented as of this encounter Visit Diagnoses Not on filedocumented in this encounter
--- OUTSIDE RECORDS SUMMARY | 2024-04-30 19:34 | XMS_ITS | Encounter Summary ---
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, estrogen receptor positive, unspecified laterality, unspecified site of breast (CMS/HCC) Procedures MS OFFICE/OUTPATIENT ESTABLISHED MOD MDM 30 MIN MS OFFICE/OUTPATIENT NEW MODERATE MDM 45 MINUTES Reymundo Lee MD [address] [place] [address] [employer] [address] [address] Phone: tel: fax: [place] [address] Referral ID Status Reason Start Date Expiration Date V isits Requested Visits Authorized [id number] Closed [facility] CTS 08/06/2023 08/05/2024 1 1 * Eval and Treat (Routine) - Closed Specialty Diagnoses / Procedures Referred By Contac t Referred To Contact Surgery Diagnoses 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, estrogen receptor positive, unspecified laterality, unspecified site of breast (CMS/HCC) Procedures MS OFFICE/OUTPATIENT ESTABLISHED MOD MDM 30 MIN MS OFFICE/OUTPATIENT NEW MODERATE MDM 45 MINUTES Reymundo Lee MD [address] [place], [place] [address] [address] [address] Phone: tel: fax: Referral ID Status Reason Start Date Expiration Date Visits Re quested Visits Authorized [id number] Closed 08/06/2023 08/05/2024 1 1 * PET Scan (Routine) - Closed Specialty Diagnoses / Procedures Referred By Kady t Referred To Contact Diagnoses 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 [phone] Referral ID Status Reason Start Date Expiration Date V isits Requested Visits Authorized [id number] Closed [facility] CTS 08/06/2023 09/05/2024 1 1 Reason for Visit * Reason Comments Establish Care Encounter Details Date Type Department Care Team (Late st Contact Info) Description 08/06/2023 1:30 PM CDT Office Visit [facility] Oncology and Hematology [facility] [address] [place] [address] [facility] [address] [place] [address] Reymundo Lee MD [address] [place] [address] 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, estrogen receptor positive, unspecified laterality, unspecified site of breast (CMS/HCC) (Primary Dx) Social History Tobacco Use Types Packs/Day Years Used Date Smoking Tobacco: Former Cigarettes 1 65 Smokeless Tobacco: Never Tobacco Cessation:Counseling Given: Not [...] Sign Reading Time Taken Comments Blood Pressure 162/74 08/06/2023 1:57 PM CDT Pulse 76 08/06/2023 1:55 PM CDT Temperature 36.4 ??C (97.6 ??F) 08/06/2023 1:55 PM CD T Respiratory Rate 14 08/06/2023 1:55 PM CDT Oxygen Saturation 95% 08/06/2023 1:55 PM CDT Inhaled Oxygen Concentration - - Weight 47.2 kg (104 lb) 08/06/2023 1:55 PM CDT Height 162.6 cm (5' 4 ) 08/06/2023 1:55 PM CDT Body Mass Index 17.85 08/06/2023 1:55 PM CDT documented in this encounter Progress Notes * Reymundo Lee MD - 08/06/2023 2:44 PM CDT Hematology-oncology consult Note Requesting Physician Primary Care Physician No primary care provider on file. Problem list Patient Active Problem List Diagnosis Code Pharyngoesophageal dysphagia R13.14 Left leg cellulitis L03.116 Hematemesis K92.0 Tobacco abuse Z72.0 Sciatica of left side M54.32 Weight loss R63.4 Dizziness R42 Sandra-Banegas tear K22.6 Duodenitis without hemorrhage K29.80 Previous TREATMENT ? Measurable Disease ? Reason for Visit Valeria Deutsch is a 88 y.o. female who was referred for consultation for breast cancer. History of present illness This is a pleasant 88-year-old female with history of COPD admitted to the hospital with headache dizziness and cough along with some urinary urgency and frequency for 3 days duration. She was diagnosed with UTI. CT scan chest was performed that showed infiltrate in the upper lobe could be infection inflammation but malignancy was not excluded. She also noticed to have right breast massfor last 2 years duration. He had lost 20 pound weight. Patient had biopsy of the breast mass performed that showed ER 90% positive MS 50% positive Ki-67 14% with HER2/livan 3+ positive invasive ductalcarcinoma of the right breast mass at 9 o'clock position 3 cm from the nipple. Patient had CT chestabdomen and pelvis on July 16 that showed infiltrate in the upper lobes along with mediastinal lymphadenopathy likely reactive. She was started on letrozole on discharge. Patient came into the officeand tolerating letrozole well. No other new complaints. Past Medical History Past Medical History: Diagnosis Date Breast cancer Emphysema of lung Patient denies relevant medical history Stroke Surgical History Past Surgical History: Procedure Laterality Date HX BREAST BIOPSY Right MS ESOPHAGOGASTRODUODENOSCOPY TRANSORAL DIAGNOSTIC N/A 07/19/2015 ESOPHAGOGASTRODUODENOSCOPY performed by Johnson Yates MD at [facility] GI LAB PT DENIES RELEVANT SURGICAL HISTORY Medications Current Outpatient Medications Medication Sig Dispense Refill clopidogreL (PLAVIX) 75 mg Tablet Take 75 mg by mouth. letrozole (FEMARA) 2.5 mg tablet Take by mouth daily. pantoprazole (PROTONIX) 40 mg Tablet, Delayed Release (E.C.) Take 40 mg by mouth daily. aspirin (ECOTRIN EC) 81 mg Tablet, Delayed Release (E.C.) Take 81 mg by mouth daily. multivitamin (DAILY-CINTHYA) tablet Take 1 Tablet by mouth daily. No current facility-administered medications for this visit. Allergies No Known Allergies Immunizations: There is no immunization history on file for this patient. Family History Family History Problem Relation Name Age of Onset Uterine Cancer Mother Prostate Cancer Brother Brain Cancer Sister Leukemia Son Social History Social History Tobacco Use Smoking status: Former Current packs/day: 1.00 Average packs/day: 1 pack/day for 65.0 years (65.0 ttl pk-yrs) Types: Cigarettes Smokeless tobacco: Never Substance Use Topics Alcohol use: No Review of Systems Constitutional: Patient did not mention fever; no night sweats; no anorexia; no weight loss; no fatique NEENT: Patient did not mention headache; no change in vision; no change in hearing; no sore throat;no dysphagia Respiratory: Patient did not mention shortness of breath; no pleuritic chest pain; no cough; no hemoptysis Cardiac: Patient did not mention cardiac-like chest pain; no palpitations; no orthopnea; no PND; noDOE Breasts: Patient did not mention tenderness; complain of a stable right breast mass GI: Patient did not mention abdominal pain; no nausea; no vomiting; no diarrhea; no hematochezia; no melena : Patient did not mention dysuria; no frequency; no hesitancy; no hematuria ACID TANK CLEANER: Musculosketetal: Patient did not mention bone pain; no arthralgia; no joint swelling; no myalgia; Skin: Patient did not mention pruritis; no rash; no petechiae; no ecchymoses Endocrine: Patient did not mention polydipsia; no polyuria; no unusual weight gain Neuro: Patient did not mention headache; no change in vision; no sensory changes; no muscle weakness; no confusion; no seizures Psych: Patient did not mention anxiety; no depression; Physical Exam Vitals: As per nursing note Constitutional: Well developed, well nourished, no acute distress, non-toxic appearance Teeth and gum. No signs of infection or swelling. Eyes: PERRL, conjunctiva normal HEENT: Atraumatic, external ears normal, nose normal, oropharynx moist, no pharyngeal exudates. no sinus tenderness Neck- normal range of motion, no tenderness, supple Respiratory: No respiratory distress, normal breath sounds, no rales, no wheezing Breasts: Right breast mass at 9 o'clock position 3 cm from the nipple without any axillary lymphadenopathy. Cardiovascular: Normal rate, normal rhythm, no murmurs, no gallops, no rubs GI: Soft, nondistended, normal bowel sounds, nontender, no splenomegaly, no hepatomegaly, no mass, no rebound, no guarding : No costovertebral angle tenderness Musculoskeletal: No edema, no tenderness, no deformities. Back- no tenderness Integument: Well hydrated, no rash, Digits and nails inspection normal Lymphatic: No lymphadenopathy noted Neurologic: Alert & oriented x 3, CN 2-12 normal, normal motor function, normal sensory function, no focal deficits noted Psychiatric: Speech and behavior appropriate ? labs No results found for this or any previous visit (from the past 24 hour(s)). Pathology ? Imaging & Other Studies Performance Status? ECOG performance status 1 Assessment / Plan: ? 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 CT scan performed on July 17, 2023 showed infiltrate in the upper lobe could be infection/inflammation or malignancy along with mediastinal lymphadenopathy. She was started on letrozole on discharge. I will order PET scan to completely evaluate the extent of the disease. I will also refer her to Dr. Chiara Uribe for surgical consultation. [facility] due to the family history of endometrial cancer in the mother and brain tumor in the sister. I will see her back after the PET scan to discuss findings and further recommendations. I have answered all the questions to patient and the family satisfaction. GERD. She is on Protonix. History of stroke. She is on Plavix. Thank you very much for allowing me to participate in Valeria Deutsch's evaluation and management.Please feel free to contact if I can be of any further assistance in your patient???s care requiring hematology or oncology evaluation. Sincerely, ? ? Reymundo Lee M.D. cell TOBACCO COUNSELING She is not a tobacco/nicotine user. Reymundo Lee MD ,08/06/2023 2:44 PM ? Total time spent 60 minutes, two third of the total time spent counseling patient [id number]. CC:? 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, estrogen receptor positive, unspecified laterality, unspecified site of breast (CMS/HCC) 1 Occurrences starting 08/06/2023 until 08/05/2024 MISCELLANEOUS LAB TEST Lab Routine 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, estrogen receptor positive, unspecified laterality, unspecified site of breast (CMS/HCC) Expected: 08/06/2023, Expires: 08/05/2024 Scheduled Referrals Name Type Priority Associated Diagnoses Orde r Schedule AMB REFERRAL TO GENERAL SURGERY Outpatient Referral Routine 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, estrogen receptor positive, unspecified laterality, unspecified site of breast (CMS/HCC) Ordered: 08/06/2023 AMB REFERRAL TO BREAST CLINIC Outpatient Referral Routine 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, estrogen receptor positive, unspecified laterality, unspecified site of breast (CMS/HCC) Ordered: 08/06/2023 documented as of this encounter Procedures Procedure Name Priority Date/Time Associated Diagnosis Comments [facility] HEREDITARY CANCER PANELS Routine 08/15/2023 1:14 PM CDT 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, estrogen receptor positive, unspecified laterality, unspecified site of breast (CMS/HCC) [facility] XF Routine 08/13/2023 8:26 PM CDT 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, estrogen receptor positive, unspecified laterality, unspecified site of breast (CMS/HCC) [facility] DNA AND RNA Routine 08/06/2023 2:53 PM CDT 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, estrogen receptor positive, unspecified laterality, unspecified site of breast (CMS/HCC) [facility] NORMAL BLOOD Routine 08/06/2023 2:53 PM CDT 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, estrogen receptor positive, unspecified laterality, unspecified site of breast (CMS/HCC) [facility] DNA AND RNA SOLID TUMOR Routine 08/06/2023 2:53 PM CDT 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, estrogen receptor positive, unspecified laterality, unspecified site of breast (CMS/HCC) documented in this encounter Results * [facility] HEREDITARY CANCER PANELS (08/15/2023 1:14 PM CDT) [employer] Portal [email or web address] [email or web address] [email or web address]/repo [email or web address] 08/15/2023 1:14 PM CDT [facility] Comment:I.System[employer]us Portal link Blood specimen (specimen) 08/15/2023 9:21 AM CDT us Reymundo Lee MD MOLECULAR ORDERABLES Edited Res ult - Final [facility] [address], [address] [place] [address], [facility] [address], [address] [place] [address] * [facility]F (08/13/2023 8:26 PM CDT) Reason for Study To identify mutations relevant to patient's cancer. 08/13/2023 8:26 PM CDT [facility] Genetic Diseases Assessed Cancer 08/13/2023 8:26 PM CDT [facility] Description of Ranges of DNA Sequences Examined 105 gene liquid biopsy 08/13/2023 8:26 PM CDT [facility] Overall Interpretation inconclusive 08/13/2023 8:26 PM CDT [facility] Portal [email or web address] [email or web address] 08/13/2023 8:26 PM CDT [facility] Comment:[facility] Portal link Low Coverage Regions ERRFI1, TERT 08/13/2023 8:26 PM CDT [facility] Blood Tumor Mutational [place] Note bTMB cannot be calculated due to insufficient circulating tumor DNA. 08/13/2023 8:26 PM CDT [facility] Genomic Variant Note No reportable pathogenic variants were found. 08/13/2023 8:26 PM CDT [facility] Microsatellite Instability Note MSI-High not detected 08/13/2023 8:26 PM CDT [facility] Variants of Unknown Significance Note No reportable variants of unknown significance (VUSs) were found. 08/13/2023 8:26 PM CDT [facility] Treatment Implications Note No reportable treatment options found. 08/13/2023 8:26 PM CDT [facility] Blood specimen (specimen) 08/08/2023 1:05 AM CDT Reymundo Lee MD MOLECULAR ORDERABLES Final Resu lt Performing Organization Address City/[facility]/ZIP Co de Phone Number [facility] [address] [facility], [address] [place] [address], [place] [phone] [facility] [address], [address] [place], [place] [address] * [facility] NORMAL BLOOD (08/06/2023 2:53 PM CDT) [facility] 08/06/2023 11:01 PM CDT [facility] Comment:See NGS Report for R esults. Blood specimen (specimen) 08/06/2023 2:53 PM CDT 08/06/2023 2:54 PM CDT Reymundo Lee MD MOLECULAR ORDERABLES Final Resu lt Performing Organization Address [facility] Co de Phone Number [facility] [address] [facility], [address] [place] [address], [place] [phone] [facility] [address] [facility], [address] [place] [id number] * [facility] DNA AND RNA SOLID TUMOR (08/06/2023 2:53 PM CDT) Reason for Study To identify somatic and germline mutations relevant to patient's cancer. 09/12/2023 12:00 AM CDT [facility] Genetic Diseases Assessed Cancer 09/12/2023 12:00 AM CDT [facility] Description of Ranges of DNA Sequences Examined 648 gene panel 09/12/2023 12:00 AM CDT [facility] Overall Interpretation positive 09/12/2023 12:00 AM CDT [facility] MSI Stable 09/12/2023 12:00 AM CDT [facility] TMB 3.2 m/MB 09/12/2023 12:00 AM CDT [facility] Portal [email or web address] 09/12/2023 12:00 AM CDT [facility] Comment:[facility] Portal link Genome-wide ESTHELA 5.8 % 12:00 AM CDT [facility] Cohort Specific Genome-wide ESTHELA Threshold 21 % 09/12/2023 12:00 AM CDT [facility] HRD Interpretation Not Detected 09/12/2023 12:00 AM CDT [facility] HRD Analysis Type DNA 024 12:00 AM CDT [facility] Pertinent Negatives ERBB2 (HER2), ESR1, PIK3CA 09/12/2023 12:00 AM CDT [facility] Low Coverage Regions KDM5D 09/12/2023 12:00 AM CDT [facility] xR Result 1 NEGATIVE Negative - This report is being issued to report the results of gene rearrangement and altered splicing analysis from RNA sequencing. No gene rearrangements nor reportable altered splicing events were identified from RNA sequencing. 09/12/2023 12:00 AM CDT [facility] Germline Variant Note No potential germline variants were found in the limited set of genes on which we report. 09/12/2023 12:00 AM CDT [facility] Treatment Implications Note No reportable treatment options found. 09/12/2023 12:00 AM CDT [facility] Tissue specimen (specimen) 08/06/2023 2:53 PM CDT 08/09/2023 1:17 PM CDT Narrative This result has genomic variants that were not included in this document. 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
--- OUTSIDE RECORDS SUMMARY | 2024-04-30 19:34 | XMS_ITS | Encounter Summary ---
Author Organization [facility] Address [address] [place] [address] Care Team Providers Care Caterpillar Tractor Operator Name Role Phone Unavailable Primary Care Provider Unavailabl e Encounter Details Date Type Department Care Team (Late st Contact Info) Description 01/16/2024 Specialty Pharmacy [facility] [place] [address] [place] [address] Sandra Alcantar, PHARMACIST Specialty Pharmacy [...] st Contact Info) Description 05/05/2024 11:15 AM APPLICATION MANAGER Office Visit [facility] Oncology and Hematology - [place] [address] [facility] [address] [place] [address] Reymundo Lee MD [address] [facility] [address] [place] [address] documented as of this encounter Visit Diagnoses Not on filedocumented in this encounter
--- OUTSIDE RECORDS SUMMARY | 2024-04-30 19:34 | XMS_ITS | Encounter Summary ---
Author Organization [facility] [employer] [facility] Address [address] [place] [address] Care Team Providers Care Immigration Services Officer Name Role Phone Unavailable Primary Care Provider Unavailabl e Encounter Details Date Type Department Care Team (Late st Contact Info) Description 10/05/2023 8:45 AM CDT Office Visit [facility] Oncology and Hematology - [place] [address] [facility] [address] [place] [address] Reymudno Lee MD [address] [facility] [address] [place] [address] Social History Tobacco Use Types Packs/Day Years Used Date Smoking Tobacco: Every Day Cigarettes 1 65.9 Started: 06/08/2023 Smokeless Tobacco: Never Tobacco Cessation:Counseling Given: [...] Sign Reading Time Taken Comments Blood Pressure 125/83 10/05/2023 8:54 AM CDT Pulse 81 10/05/2023 8:54 AM CDT Temperature 36.5 ??C (97.7 ??F) 10/05/2023 8:54 AM CD T Respiratory Rate 18 10/05/2023 8:54 AM CDT Oxygen Saturation 95% 10/05/2023 8:54 AM CDT Inhaled Oxygen Concentration - - Weight 48.1 kg (106 lb) 10/05/2023 8:54 AM CDT Height - - Body Mass Index 18.19 08/06/2023 1:55 PM CDT 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 STEREO EQUIPMENT SALESPERSON Office Visit [facility] Oncology and Hematology - [place] [address] [facility] [address] [place] [address] Reymundo Lee MD [address] [facility] [address] [place] [address] documented as of this encounter Visit Diagnoses Not on filedocumented in this encounter
--- OUTSIDE RECORDS SUMMARY | 2024-04-30 19:34 | XMS_ITS | Encounter Summary ---
Author Organization [facility] Address [address] [place] [address] Care Team Providers Care Interface Developer Name Role Phone Unavailable Primary Care Provider Unavailabl e Encounter Details Date Type Department Care Team (Late st Contact Info) Description 12/06/2023 Orders Only [facility] Oncology and Hematology [facility] [address] [place] [address] Reymundo Lee MD [address] [place] [address] Malignant neoplasm of breast in [...] st Contact Info) Description 05/05/2024 11:15 AM REAL ESTATE ACQUISITION ANALYST Office Visit [facility] Oncology and Hematology [facility] [address] [place] [address] Reymundo Lee MD [address] [place] [address] Scheduled Orders Name Type Priority Associated Diagnoses Orde r Schedule CANCER ANTIGEN 15-3 Lab Routine 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, estrogen receptor positive, unspecified laterality, unspecified site of breast (CMS/HCC) Expected: 12/06/2023, Expires: 12/05/2024 COMPREHENSIVE METABOLIC PANEL Lab Routine 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, estrogen receptor positive, unspecified laterality, unspecified site of breast (CMS/HCC) Expected: 12/06/2023, Expires: 12/05/2024 CBC WITH DIFFERENTIAL Lab Routine 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, estrogen receptor positive, unspecified laterality, unspecified site of breast (CMS/HCC) Expected: 12/06/2023, Expires: 12/05/2024 documented as of this encounter Visit Diagnoses Diagnosis 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
--- OUTSIDE RECORDS SUMMARY | 2024-04-30 19:34 | XMS_ITS | Encounter Summary ---
Author Organization [facility] ALMA ROSAPartyWithMe [facility] Address [address] [place] [address] Care Team Providers Care Paint Roller Covermaker Name Role Phone Unavailable Primary Care Provider Unavailabl e Encounter Details Date Type Department Care Team (Late Contact Info) Description 12/14/2023 Orders Only [facility] Oncology and Hematology [facility] [address] [place] [address] Reymundo Lee MD [address] [place] [address] [employer] [address] [place] [phone] Social History Tobacco Use Types Packs/Day [...] (Late Contact Info) Description 05/05/2024 11:15 AM CRACK OFF PERSON Office Visit [facility] Oncology and Hematology [facility] [address] [place] [address] [place] [address] [place], [place] [address]FIA Formula E[employer] [address] [place] [phone] documented as of this encounter Procedures Procedure Name Priority Date/Time Associated Diagnosis Comments CHG CA 15 3 Routine 12/06/2023 9:53 AM CDT CBC WITH AUTODIFFERENTIAL Routine 2023 9:49 AM CDT BASIC METABOLIC PANEL Routine 12/06/2023 9:23 AM CDT COMPREHENSIVE METABOLIC PANEL Routine 12/06/2023 8:53 AM CDT documented in this encounter Results * CHG CA 15 3 (12/06/2023 9:53 AM CDT) us Reymundo Lee MD CHG - LABORATORY Final Result * CBC WITH AUTODIFFERENTIAL (12/06/2023 9:49 AM CDT) Blood us Reymundo Lee MD HEMATOLOGY ORDERABLES Final Res ult * BASIC METABOLIC PANEL (12/06/2023 9:23 AM CDT) Blood us Reymundo Lee MD CHEMISTRY ORDERABLES Final Resu lt * COMPREHENSIVE METABOLIC PANEL (12/06/2023 8:53 AM CDT) Blood us Reymundo Lee MD CHEMISTRY ORDERABLES Final Resu lt documented in this encounter Visit Diagnoses Not on filedocumented in this encounter
--- OUTSIDE RECORDS SUMMARY | 2024-04-30 19:34 | XMS_ITS | Encounter Summary ---
Author Organization [facility] Address [address] [place] [address] Care Team Providers Care Pathology Lab Technician Name Role Phone Unavailable Primary Care Provider Unavailabl e Encounter Details Date Type Department Care Team (Late st Contact Info) Description 03/17/2024 Specialty Pharmacy [facility] [address] [facility] [place] [address] Alejandra Givens, PHARMACIST Specialty Pharmacy Refill Coordination Social History [...] st Contact Info) Description 05/05/2024 11:15 AM METAL LEAF LAYER Office Visit [facility] Oncology and Hematology - [place] [address] [place] [address] Reymundo Lee MD [address] [facility] [address] [place] [address] documented as of this encounter Visit Diagnoses Not on filedocumented in this encounter
--- OUTSIDE RECORDS SUMMARY | 2024-04-30 19:34 | XMS_ITS | Encounter Summary ---
Author Organization [facility] ALMA [email or web address] [facility] Address [address] [place] [address] Care Team Providers Care Gas Burner Operator Name Role Phone Unavailable Primary Care Provider Unavailabl e Encounter Details Date Type Department Care Team (Late Contact Info) Description 01/22/[address] [facility] Oncology and [facility] [address] [place] [address] Reymundo Lee MD [address] [place] [address] [employer] [address] [place] [phone] Social History Tobacco Use Types Packs/Day [...] (Late Contact Info) Description 05/05/2024 11:15 AM AVIATION PROGRAM MANAGER Office Visit [facility] Oncology [facility] Hematology [facility] [address] [place] [address] [place] [address] [place] [address] [employer] [address] [place] [phone] documented as of this encounter Procedures Procedure Name Priority Date/Time Associated Diagnosis Comments CANCER ANTIGEN 15-3 Routine 01/19/2024 11:31 AM CDT documented in this encounter Results * CANCER ANTIGEN 15-3 (01/19/2024 11:31 AM CDT) Blood Reymundo Lee MD CHEMISTRY ORDERABLES Final Resu lt documented in this encounter Visit Diagnoses Not on filedocumented in this encounter
--- OUTSIDE RECORDS SUMMARY | 2024-04-30 19:34 | XMS_ITS | Encounter Summary ---
Author Organization [facility] Address [address] [place] [address] Care Team Providers Care Senior Clinical Project Manager Name Role Phone Unavailable Primary [...] st Contact Info) Description 05/05/2024 11:15 AM RESOURCE DEVELOPMENT DIRECTOR Office Visit [facility] Oncology and Hematology - [place] [address] [place] [address] [address] [place] [address] Reymundo Lee MD [address] [facility] [address] [place] [address] documented as of this encounter Visit Diagnoses Not on filedocumented in this encounter
--- OUTSIDE RECORDS SUMMARY | 2024-04-30 19:34 | XMS_ITS | Encounter Summary ---
Author Organization [facility] Address [address] [place] [address] Care Team Providers Care Frickertron Checker Name Role Phone Unavailable Primary Care Provider Unavailabl e Encounter Details Date Type Department Care Team (Late st Contact Info) Description 09/18/2023 External Device Data STL ABSTRACTION Provider, Abstract [...] st Contact Info) Description 05/05/2024 11:15 AM ADVERTISING ACCOUNT EXECUTIVE Office Visit [facility] Oncology and Hematology - [place] [address] [place] [address] [facility] [address] [place] [address] Reymundo Lee MD [address] [facility] [address] [place] [address] documented as of this encounter Visit Diagnoses Not on filedocumented in this encounter
--- OUTSIDE RECORDS SUMMARY | 2024-04-30 19:34 | XMS_ITS | Clinical Summary ---
Author Organization [facility] Address [address] [place] [address] Phone Care Team Providers Care Foiling Machine Operator Name Role Phone Unavailable Primary Care Provider Unavailabl e Allergies No known active allergies Medications multivitamin (DAILY-CINTHYA) tablet Take 1 Tablet by mouth daily. Active aspirin (ECOTRIN EC) 81 mg Tablet, Delayed Release (E.C.) Take 81 mg by mouth daily. Active clopidogreL (PLAVIX) 75 mg Tablet Take 75 mg by mouth. Active ferrous sulfate 325 mg (65 mg iron) tablet Take 325 mg by mouth daily. Active letrozole (FEMARA) 2.5 mg tablet Take 1 Tablet (2.5 mg) by mouth daily. 90 Tablet 3 4 Active ondansetron (ZOFRAN ODT) 4 mg Tablet, Rapid Dissolve Take 1 Tablet (4 mg) by mouth every 8 hours as needed for Nausea/Emesis . Dissolve tablet on top of tongue, then swallow with saliva. 30 Tablet 1 4 Active pantoprazole (PROTONIX) 40 mg Tablet, Delayed Release (E.C.) TAKE 1 TABLET BY MOUTH EVERY DAY 90 Tablet 1 4 Active lapatinib (TYKERB) 250 mg tablet Take 4 Tablets (1,000 mg) by mouth daily before breakfast. 120 Tablet 4 5 Active lapatinib (TYKERB) 250 mg tablet Take 4 Tablets (1,000 mg) by mouth daily before breakfast. 120 Tablet 4 03/19/2024 3:21 PM MOLD BLOWER 4 04/17/19 25 Discontinu ed(Reorder ) lapatinib (TYKERB) 250 mg tablet Take 4 Tablets (1,000 mg) by mouth daily before breakfast. 120 Tablet 4 5 04/21/19 25 Discontinu ed(Reorder ) Active Problems Problem Noted Date Diagnosed Date Sandra-Banegas tear 07/20/2015 Duodenitis without hemorrhage 07/20/2015 Pharyngoesophageal dysphagia 07/19/2015 Left leg cellulitis 07/19/2015 Hematemesis 07/19/2015 Tobacco abuse 07/19/2015 Sciatica of left side 07/19/2015 Weight loss 07/19/2015 Dizziness Encounters Date Type Department Care Team Description 04/29/2024 External Device Data STL ABSTRACTION Provider, Abstract 04/25/2024 Abstract [facility] Oncology and Hematology - [place] [address] [place] [phone] Reymundo Lee MD 04/23/2024 Orders Only [facility] Oncology and Hematology - [place] [address] [place] [address] Scanning, Provider 04/21/2024 Refill [facility] Oncology and Hematology - [place] [address] [place] [address] Reymundo Lee MD 04/21/2024 Specialty Pharmacy [facility] [address] [place] [phone] Tiffanie Cooper, PHARMACIST 04/17/2024 Refill [facility] Oncology and Hematology - [place] [address] [place] [address] Reymundo Lee MD 03/17/2024 Specialty Pharmacy [facility] [address] [place] [address] [place] [address] Alejandra Givens, PHARMACIST Specialty Pharmacy Refill Coordination 03/15/2024 Refill [facility] Oncology and Hematology - [place] [address] [place] [address] Reymundo Lee MD 02/14/2024 Specialty Pharmacy [facility] [address] [place] [address] [place] [address] Sandra Alcantar, PHARMACIST Specialty Pharmacy Refill Coordination from Last 3 Months Family History Medical History Relation Name Comments Prostate Cancer Brother Uterine Cancer Mother Brain Cancer Sister Leukemia Son 1 Relation Name Status Comments Brother Alive Father Mother Sister Son 1 Alive Son 2 Alive Son 3 Alive Social History Tobacco Use Types Packs/Day Years [...] 3.2 oz) 01/24/2024 10:24 AM CDT Height 162.6 cm (5' 4 ) 08/06/2023 1:55 PM CDT Body Mass Index 17.89 08/06/2023 1:55 PM CDT Plan of Treatment Upcoming Encounters Date Type Department Care Team (Late st Contact Info) Description 05/05/2024 11:15 AM MOLD BLOWER Office Visit [facility] Oncology and Hematology - [place] [address] [facility] [address] [place] [address] Reymundo Lee MD [address] [facility] [address] [place] [address] Health Maintenance Due Date Last Done Comments DTAP/TDAP/TD VACCINES (1 - Tdap) 1954 PNEUMOCOCCAL VACCINE 65+ YEARS (1 of 2 - PCV) 05/25/18 57 Traditional Medicare (ACO) Annual Wellness Visit 05/25 ZOSTER VACCINE (1 of 2) 1987 OSTEOPOROSIS SCREENING 2002 RSV VACCINE (60+ or ) (1 - 1-dose 75+ series) 2012 INFLUENZA VACCINE (#1) 2023 Procedures Procedure Name Priority Date/Time Associated Diagnosis Comments COMPREHENSIVE METABOLIC PANEL Routine 04/23/2024 2:10 PM MOLD BLOWER URINE CULTURE Routine 04/23/2024 12:48 PM MOLD BLOWER from Last 3 Months Results * COMPREHENSIVE METABOLIC PANEL (04/23/2024 2:10 PM MOLD BLOWER) Blood us Provider Scanning CHEMISTRY ORDERABLES Final Res ult * URINE CULTURE (04/23/2024 12:48 PM MOLD BLOWER) Urine us Provider Scanning MICROBIOLOGY - GENERAL ORDERAB LES Final Result from Last 3 Months Insurance [id number] [place] [id number] [place] [address] [employer] Medicare Part D Advance Directives For more information, please contact: [phone] * Full Code (Latest Code Status on File) Date Activated Date Inactivated Comments 07/19/2015 3:53 PM 07/20/2015 5:50 PM
--- OUTSIDE RECORDS SUMMARY | 2024-04-30 19:34 | XMS_ITS | Encounter Summary ---
Author Organization [facility]3] [employer] [facility] Address [address] [place] [address] Care Team Providers Care Front Office Medical Assistant Name Role Phone Unavailable Primary Care Provider Unavailabl e Encounter Details Date Type Department Care Team (Late Contact Info) Description 12/17/2023 Orders Only [facility] Oncology and Hematology [facility] [address] [place] [address] Reymundo Lee MD [address] [place] [address] [employer] [address] [place] [address] Social History Tobacco Use Types Packs/Day [...] st Contact Info) Description 05/05/2024 11:15 AM POSTAL SERVICE CLERK Office Visit [facility] Oncology and Hematology [facility] [address] [place] [address] [place] [address] [place] [address] [employer] [address] [place] [address] documented as of this encounter Procedures Procedure Name Priority Date/Time Associated Diagnosis Comments ECHO COMPLETE Routine 12/14/2023 2:22 PM CDT documented in this encounter Results * ECHO COMPLETE - CONTRAST AND STRAIN IF INDICATED (12/14/2023 2:22 PM CDT) Reymundo Lee MD US ORDERABLES Final Result documented in this encounter Visit Diagnoses Not on filedocumented in this encounter
--- OUTSIDE RECORDS SUMMARY | 2024-04-30 19:34 | XMS_ITS | Encounter Summary ---
Author Organization [facility] Address [address] [place] [address] Care Team Providers Care Regulatory Affairs Consultant Name Role Phone Unavailable Primary Care [...] st Contact Info) Description 05/05/2024 11:15 AM CHECK VIEWER Office Visit [facility] Oncology and Hematology - [place] [address] [place] [address] [facility] [address] [place] [address] Reymundo Lee MD [address] [facility] [address] [place] [address] documented as of this encounter Visit Diagnoses Not on filedocumented in this encounter
--- OUTSIDE RECORDS SUMMARY | 2024-04-30 19:35 | XMS_ITS | Encounter Summary ---
Author Organization [facility] Address [address] [place] [address] Care Team Providers Care Hose Stripper Name Role Phone Unavailable Primary Care Provider Unavailabl e Reason for Visit * Reason Comments Vomiting Here with complaints of vomiting. States was here yesterday and diagnosed with cellulitis. States that took a pain pill this AM, then vomited and also had some blood in it. * Auth/Cert Specialty Diagnoses / Procedures Referred By Contac t Referred To Contact Multi Specialty Procedures ESOPHAGOGASTRODUODENOSCOPY [address] [place] [address] Phone: tel: fax: Referral ID Status Reason Start Date Expiration Date Visits Re quested Visits Authorized [id number] 07/20/2015 08/19/2016 1 Encounter Details Date Type Department Care Team (Latest Contact Info) Description 07/19/2015 8:11 AM CDT - 07/20/2015 3:50 PM CDT Hospital Encounter [facility] [address] [place] [address] Monica Thorne MD NO ADDRESS ON FILE Vita Taveras MD [address] [address] Gabino Wong MD [address] [address] Pharyngoesophageal dysphagia Discharge Disposition: Home or Self Care Social History Tobacco Use Types Packs/Day Years Used Date Smoking Tobacco: Every Day Cigarettes 1 65 Smokeless Tobacco: Never Alcohol [...] Sign Reading Time Taken Comments Blood Pressure 139/65 07/20/2015 1:00 PM CDT Pulse 72 07/20/2015 1:00 PM CDT Temperature 36.8 ??C (98.2 ??F) 07/20/2015 1:00 PM CD T Respiratory Rate 20 07/20/2015 1:00 PM CDT Oxygen Saturation 94% 07/20/2015 1:00 PM CDT Inhaled Oxygen Concentration - - Weight 57.8 kg (127 lb 6.4 oz) 07/19/2015 3:50 P M CDT Height 162.6 cm (5' 4 ) 07/19/2015 3:50 PM CDT Body Mass Index 21.87 07/19/2015 3:50 PM CDT documented in this encounter Discharge Summaries * Gabino Wong MD - 07/20/2015 2:54 PM CDT [facility] Adult Hospitalist Discharge Summary Patient Name Valeria Lake Age 80 y.o. Gender female Date of 1935 [facility] [id number] Discharging Physician Gabino Wong MD PCP No primary care provider on file. Admit Date 07/19/2015 Discharge Date 07/20/2015 Length of Stay LOS: 1 day Problems/ Diagnoses Addressed: Active Hospital Problems Diagnosis Date Noted ??? Sandra-Banegas tear 07/20/2015 ??? Duodenitis without hemorrhage 07/20/2015 ??? Dizziness ??? Pharyngoesophageal dysphagia 07/19/2015 ??? Left leg cellulitis 07/19/2015 ??? Hematemesis 07/19/2015 ??? Tobacco abuse 07/19/2015 ??? Sciatica of left side 07/19/2015 ??? Weight loss 07/19/2015 Resolved Hospital Problems Diagnosis Date Noted Date Resolved No resolved problems to display. Discharge Condition: improving Hospital Course: Valeria Lake is a 80 y.o. female who was admitted to [facility] on 07/19/2015 for evaluation of hematemesis. She had recently been sent home from the ER with bactrim and percocet forleg cellulitis and back pain. Evidently taking both of the medications caused nausea and some worsening of chronic intermittent dysphagia. She was admitted to the hospital for evaluation. Serial H/H were followed and remained stable. She was seen by the GI service. EGD was performed which showed a small bleeding MW tear. This was injected. She had some mild narrowing at the GE junction c/w with reflux change, which could be the cause of her intermittent dysphagia. She also noted to have duodenitis and biopsies were taken to r/o H. Pylori. These results will be followed up by GI. It was recommended that she be on BID PPI for now. She improved more quickly than expected from a GI perspective and was felt to be stable for discharge. Since it was unclear if the bactrim caused some of her sx, she will be transitioned to oral keflex to complete her course of possible leg cellulitis. She has f/u with a new PCP in a couple of days. She was instructed to f/u with her new PCP for her L sided sciatica sx which have been chronic. Percocet was stopped and she was given a refill on the norco which her family said helped her pain. Follow-up & Outstanding Issues/Tests: H. Pylori testing Consults: Dr. Yates: GI Physical Exam on Day of Discharge: Filed Vitals: 07/20/15 0153 07/20/15 0445 07/20/15 0951 07/20/15 1300 BP: 133/71 138/61 138/60 139/65 Pulse: 75 67 68 72 Temp: 98.1 ??F (36.7 ??C) 97.9 ??F (36.6 ??C) 98 ??F (36.7 ??C) 98.2 ??F (36.8 ??C) TempSrc: Oral Oral Oral Oral Resp: 18 20 20 20 Height: Weight: SpO2: 92% 90% 92% 94% Chest: CTA bilaterally CV: RRR, nl S1. S2 Abd: positive BS, soft, NT, ND Ext: no cyanosis or edema. Skin: Bruising L lateral knee area. Discoloration over the anterior L ma. Looks more like bruising now than erythema. Procedures performed: 07/18 1514 GI REPORT Procedure(s) (LRB): ESOPHAGOGASTRODUODENOSCOPY (N/A) Disposition: home Medications: For final DC Med list: see Epic document titled ???[facility] After Visit Summary Discharge Instructions. Discharge medications and new prescriptions: Medication List START taking these medications acetaminophen 325 mg tablet Commonly known as: TYLENOL Take 2 Tablet (650 mg) by mouth every 6 hours as needed for Pain or Temperature (Temperature greater than 100.3 or general pain, pain of headache, or pain with score less than 4). Signed by: Gabino Wong Refills: 0 cephALEXin 500 mg capsule Commonly known as: KEFLEX Take 1 Capsule (500 mg) by mouth 3 times daily for 7 days. Signed by: Gabino Wong Quantity: 21 Capsule Refills: 0 pantoprazole 40 mg Tablet, Delayed Release (E.C.) Commonly known as: PROTONIX Take 1 Tablet (40 mg) by mouth 2 times daily. Signed by: Gabino Wong Quantity: 60 Tablet Refills: 0 CONTINUE taking these medications HYDROcodone-acetaminophen 5-325 mg tablet Commonly known as: NORCO Take 1 Tablet by mouth every 4 hours as needed for Pain, Moderate. Max Daily Amount: 6 Tablet Signed by: Gabino Wong Quantity: 30 Tablet Refills: 0 multivitamin tablet Commonly known as: DAILY-CINTHYA Take 1 Tablet by mouth daily. 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 Please take the prescriptions given to you during your stay and have them filled at any pharmacy. - acetaminophen 325 mg tablet Information on where to get these meds is not yet available. Ask your nurse or doctor. - cephALEXin 500 mg capsule - HYDROcodone-acetaminophen 5-325 mg tablet - pantoprazole 40 mg Tablet, Delayed Release (E.C.) Patient Instructions: Activity: activity as tolerated Diet is: DIET GENERAL Effective Now Wound Care: None needed. Follow-up with No primary care provider on file. in 1 week. Primary Emergency Contact: FABIÁN LAKE, Brice Code Status: Full Code Signed: Gabino Wong MD This discharge took greater than 30 minutes of time to prepare, over half of this time was spent counseling the patient and family about her condition, including instructions for the patient, interview and examination of the patient, care coordination, and discussion and instructions for the ancillary staff. documented in this encounter Discharge Instructions * Discharge Instructions* Gabino Wong MD - 07/20/2015 2:54 PM CDT Your discharging physician is Gabino Wong MD and may be reached at [phone] for any questions or concerns until you see your doctor. FOLLOW-UP Follow up with your new PCP on Sunday as scheduled MEDS: Prescriptions given? Yes Stop taking naproxyn, aleve, aspirin, motrin. Tylenol is ok. SIGNS AND SYMPTOMS TO REPORT: For problems or questions that arise after you are discharged, please call Dr. Wong at the above number Contact your health care provider if you experience any of the following symptoms: Worsening shortness of breath, worsening chest pain, fever >101.5, profuse diarrhea, severe nausea and vomiting Smoking Exposure: [facility] [place] encourages all patients to decrease risks associated with smoking and second hand smoke exposure. If you smoke you are advised to quit. Ask your health care provider for advice if you need assistance to stop smoking. Avoid second-hand smoke exposure and do not let people smoke in your home. Please call [phone], our pulmonary rehabilitation department, to learn more about options to reduce your risks ACTIVITY: Your activity level is: as tolerated DIET: Your diet is: regular PAIN : Continue pain control therapies as prescribed. documented in this encounter Medications at Time of Discharge multivitamin (DAILY-CINTHYA) tablet Take 1 Tablet by mouth daily. cephALEXin (KEFLEX) 500 mg capsule Take 1 Capsule (500 mg) by mouth 3 times daily for 7 days. 21 Capsule 0 07/20/2015 07/27/2015 pantoprazole (PROTONIX) 40 mg Tablet, Delayed Release (E.C.) Take 1 Tablet (40 mg) by mouth 2 times daily. 60 Tablet 0 07/20/2015 08/19/2015 documented as of this encounter Progress Notes * Carey Garcia RN - 07/20/2015 3:07 PM CDT Patient is feeling much better today. She has not required any pain medication. She is able to walkmore and has a steady gait. Family at bedside this afternoon and discharge paperwork reviewed with the patient and with them. All questions answered. Valeria Lake will be discharged via wheelchair to home. Valeria Lake is accompanied by family member(s) and will be transported via private vehicle. * Afsaneh Cowan, Occupational Therapist - 07/20/2015 12:01 PM CDT Occupational Therapy order received, chart reviewed, and evaluation completed. Please see full evaluation below for details. Daily OT notes will be located in Care Plan notes. Thank You. OT INITIAL EVALUATION Diagnosis: Dysphasia, fall MD: Nitin Activity Order: As tolerated Weight Bearing Status: No restrictions Precautions: fall PMH: PUD, dysphasia S: Patient reports 8/10 pain. 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 Independent with ADL/IADLS. Ambulates independently reports dizziness but no other recent falls Home Equipment: Tub-likes to soak in tub/ grab bar, standard toilet O: Appearance: 80 yo female with telemetry, IV, Vision: glasses Cognition/Perception: Pt is alert and oriented x 4, provides hx and follows 100%. Functional safetyjudgement for basic ADLS UE ROM: WFL Muscle Tone: WFL UE Strength: WFL Coordination: right Hand Dominant: WFL / able to tie Sensation: baseline FUNCTIONAL ACTIVITIES ASSESSMENT: Feeding: Difficulty to swallow reported Grooming: Independent to wash hands at sink UE Dressing: SBA to don robe due to IV LE Dressing: Independent to don/doff socks and manage underwear up/down for toileting Toilet Transfer: Independent to toilet in room Tub/Shower Transfer: SBA to step in/out simulated tub. Recommend family be present for tub transferinitially at DC for safety Functional Mobility: Ambulates to / from bathroom with no device/no loss of balance Positioning after tx: Up to chair with alarm on, call light/needs in reach Other: all lines intact Patient/Family Education: Role OT/ home safety for ADLS Equipment needed at DC: Recommend bath seat Equipment Issued this date: none Equipment Loaned this date: none A: Disabilities: No self care deficits noted Assessment: No further skilled OT is needed due to functional for basic ADLS Recommend: Home with supervision Recommendations were made on today's assessment. Additional recommendations will be based on patient's progress in therapy. P: OT to see patient: DC OT due to functional with basic ADLS Patient to perform all ADLs and bathroom transfers with nursing or family to maintain current levelof function. --Patient involved in goal setting: yes Patient goals will be found in the Care Plan section of the medical chart. Zone #: [id number] * Johnson Yates MD - 07/20/2015 9:00 AM CDT INPATIENT PROGRESS NOTE Shickshinnyzuly Lake 1935 07/20/2015 9:00 AM Chief Complaint: hematemesis Subjective No further emesis. No abdominal pain. Review of Systems Denies other gastrointestinal or constitutional symptoms. Physical Exam: BP 138/61 mmHg Pulse 67 Temp(Src) 97.9 ??F (36.6 ??C) (Oral) Resp 20 Ht 5' 4 (1.626 m) Wt 57.788 kg (127 lb 6.4 oz) BMI 21.86 kg/m2 SpO2 90% ? No Constitutional: Oriented to person, place, and time. Appears well-developed and well-nourished. No distress. Eyes: Conjunctivae and EOM are normal. No scleral icterus. HENT: Normocephalic and atraumatic. Oropharynx is clear and moist. Normal lips and gums. Neck supple. No thyromegaly present. No masses palpated Cardiovascular: Normal rate and regular rhythm. Exam reveals no gallop sounds and no friction rub. No murmur heard. No peripheral edema Pulmonary/Chest: Effort normal and breath sounds clear bilaterally Abdominal: Soft. Bowel sounds are normal. No distension and no mass. No tenderness. No rebound and no guarding. No hepatosplenomegaly. Musculoskeletal: No peripheral edema. No tenderness to palpation of extremities. No clubbing or cyanosis of digits Lymphadenopathy: No cervical adenopathy. Neurological: Alert and oriented to person, place, and time. Normal speech, no focal defects noted Skin: No rash noted on face or extremities. Psychiatric: Normal mood and affect. Behavior is normal. Labs/Imaging: Lab Results Component Value Date/Time WBC 7.7 07/20/2015 05:33 AM HEMOGLOBIN 12.0 07/20/2015 05:33 AM HEMATOCRIT 37.2 07/20/2015 05:33 AM PLATELETS 222 07/20/2015 05:33 AM MCV 93.5 07/20/2015 05:33 AM Lab Results Component Value Date/Time SODIUM 138 07/20/2015 05:53 AM POTASSIUM 4.1 07/20/2015 05:53 AM CHLORIDE 104 07/20/2015 05:53 AM CO2 25 07/20/2015 05:53 AM CALCIUM 8.2* 07/20/2015 05:53 AM BUN 10 07/20/2015 05:53 AM CREATININE 0.82 07/20/2015 05:53 AM GLUCOSE 80 07/20/2015 05:53 AM TOTAL PROTEIN 7.0 07/19/2015 08:40 AM ALBUMIN 4.0 07/19/2015 08:40 AM BILIRUBIN TOTAL 0.4 07/19/2015 08:40 AM ALKALINE PHOSPHATASE 51 07/19/2015 08:40 AM AST 20 07/19/2015 08:40 AM ALT 16 07/19/2015 08:40 AM ANION GAP 9 07/20/2015 05:53 AM I have reviewed the patient's previous EGD, including the images, from yesterday -- Sandra Banegas tear, duodenitis. Impression/Plan 1. Hematemesis - secondary to Sandra Banegas tear with associated reflux changes, s/p epi injection.No further bleeding and H/H are stable. On Protonix IV, can transition to oral bid. Advance to regular diet. 2. Duodenitis - suspect H pylori given appearance. Biopsies pending. I will contact her with results and arrange treatment if necessary. No objection to discharge from GI standpoint. Please call withquestions. Johnson Yates MD [facility] Pager: [phone] * Johnson Yates MD - 07/19/2015 1:09 PM CDT Inpatient Gastroenterology Consultation Note Patient: Valeria Lake / 80 y.o. / female : 1935 Date: 07/19/2015 CSN: [id number] Referring Physician:Monica Smith MD PCP: No primary care provider on file. Reason for Consult: Hematemesis, dysphagia History of Present Illness: Valeria Lake is a 80 y.o. female who has not had medical treatment in many years, presenting with vomiting with streaks of red blood following attempts to swallow a Percocet. She describes the sensation that the pill got stuck in the epigastrium. She belched, then vomited white foam streaked with red blood. She then tried to drink coffee and immediately vomited this back up. She denies further hematemesis and is now able to swallow her secretions. This is her 3rd ED visit since 07/10/15. She reports a history of intermittent dysphagia over the past year described as choking on solid food that she then regurgitates. After vomiting and waiting a brief period of time, she is able to swallow again. At 3 pm yesterday, she had a Big Mac and had no problems swallowing at all. She denies more symptoms with solids versus liquids and had intermittent problems with both. She denies progressive dysphagia, odynophagia, frequent vomiting. She had a dose of steroids on an ED visit in early July following a fall. She also took Aleve during that time. She was drinking apple cider vinegar as a home remedy. She has bm's every 3 days and notes no change in this pattern. She denies melena or he matochezia. She had recent dizziness and falls, wt loss of 7 pounds, some decrease in appetite following fall. She has never had an egd or colonoscopy. FH of uterine CA in her mother. She is a heavy smoker. No Known Allergies (Not in a hospital admission) Past Medical History Diagnosis Date ??? 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 Past Surgical History Procedure Laterality Date ??? Pt denies relevant surgical history Family History Problem Relation Age of Onset ??? Uterine Cancer Mother History Substance Use Topics ??? Smoking status: Current Every Day Smoker -- 1.00 packs/day for 65 years Types: Cigarettes ??? Smokeless tobacco: Never Used ??? Alcohol Use: No Review of Systems: Ten of fourteen systems were reviewed. Pertinent GI positives are noted in the HPI. Gen: Denies fever/chills, has changes in weight, generalized weakness Ko: Denies SANTAMARIA, paraesthesias, has dizziness with positional change. ENT: Denies changes in vision, rhinitis CV: Denies CP, PND, orthopnea or edema Pulm: Denies SOB, productive cough or prior h/o VTE GI: See HPI MS: Has arthralgias, myalgias Derm: Denies rashes or lesions. : Denies dysuria or hematuria Heme/Lymph: Denies night sweats, enlarged lymph nodes Physical Exam: BP 159/66 mmHg Pulse 93 Temp(Src) 98.3 ??F (36.8 ??C) (Oral) Resp 18 Ht 5' 4 (1.626 m) Wt 54.432 kg (120 lb) BMI 20.59 kg/m2 SpO2 92% No intake or output data in the 24 hours ending 07/19/15 1310 General: Chronically ill appearing, In NAD HEENT: NCAT, sclera anicteric, conjunctiva pink, mucous membranes moist, gross hearing normal Neck: supple, trachea midline Lungs: normal respiratory effort, CTAB, without wheezes, crackles or rhonchi Heart: S1S2, RRR, without murmur or gallop Abdomen: protuberant, ND, +BS, soft, non tender to palpation, No HSM or palpable masses Skin: no jaundice, obvious rashes or lesions, warm to palpation Extremities: no cyanosis or edema, ecchymosis to left lower ext. Neurologic/Psych: A&Ox3, grossly nonfocal, normal mood/affect Pertinent Labs: Lab Results Component Value Date/Time WBC 13.6* 07/19/2015 08:40 AM HEMOGLOBIN 13.6 07/19/2015 08:40 AM HEMATOCRIT 40.8 07/19/2015 08:40 AM PLATELETS 255 07/19/2015 08:40 AM MCV 90.1 07/19/2015 08:40 AM Lab Results Component Value Date/Time SODIUM 140 07/19/2015 08:40 AM POTASSIUM 4.0 07/19/2015 08:40 AM CHLORIDE 100 07/19/2015 08:40 AM CO2 25 07/19/2015 08:40 AM CALCIUM 9.3 07/19/2015 08:40 AM BUN 17 07/19/2015 08:40 AM CREATININE 0.98* 07/19/2015 08:40 AM GLUCOSE 101* 07/19/2015 08:40 AM TOTAL PROTEIN 7.0 07/19/2015 08:40 AM ALBUMIN 4.0 07/19/2015 08:40 AM BILIRUBIN TOTAL 0.4 07/19/2015 08:40 AM ALKALINE PHOSPHATASE 51 07/19/2015 08:40 AM AST 20 07/19/2015 08:40 AM ALT 16 07/19/2015 08:40 AM ANION GAP 15 07/19/2015 08:40 AM No results found for: INR, PT, PROTIMEPOC Pertinent Imaging: CXR Impression/Plan: Hematemesis. Suspect low volume perhaps from MW tear, esophagitis. Follow on PPI. Dysphagia acute on chronic. I have concerns for pill induced esophagitis, stricture or mass. Plan egd today. NPO. PPI bid dosing for now. Dizziness. Med team evaluation. Discussed with Dr. Taveras. Fall with ecchymosis and hematoma Cellulitis. On abx Leukocytosis following steroids, cellulitis. Follow. I have discussed this case with Dr. Yates. This care plan has been outlined by him. Further recommendations will be made pending the patient's clinical course. Thank you very much for this consultation. I have spent a total of 30 min of time on the hospital floor reviewing pt records and speaking withthe pt and nursing staff and 15 min of time counseling the patient in regards to her current clinical situation and coordinating care. Mara Eden PA-C [facility] GI Attending Note I have personally seen and examined the patient. I have reviewed the note as entered and agree withthe assessment and plan with any exceptions, if any, as noted. I also performed the critical or keyportion(s) of the service as documented, and was directly involved in the management of the patientand supervised the care provided. Physical exam is unremarkable. Plan EGD to evaluate hematemesis and dysphagia. No evidence of food/pill impaction at this time. Given her age and smoking history, she is at higher risk for complications from the test and the anesthesia; I explained the risks, benefits, and alternatives of the endoscopy, and the patient is agreeable to proceeding. CC: No ref. provider found , No primary care provider on file. documented in this encounter H&P Notes * Vita Taveras MD - 07/19/2015 12:27 PM CDT [facility] Hospitalist H&P Patient Name: Valeria Lake Copy to Primary Care Physician: No primary care provider on file. Date of Admission: 07/19/2015 Date of Service: 07/19/2015 Chief Complaint: Vomiting blood HPI: Patient is a 80 y.o. female with tobacco abuse, remote h/o peptic ulcer, has not seen a doctor for years who presents with multiple issues. 1. LLE pain- starting from lower back, radiating to outside leg down to the foot, present for last 3 weeks, was seen in ER 1 week ago and X-ray showed arthritis, not improved with given Prednisone and NSAID, denies bowel or bladder problems or leg weakness 2. Redness left lower leg- started yesterday, seen in ER , given Septra and Percocet, took 2 doses of Septra, had vomiting and dysphagia after Percocet today 3. Dysphagia- intermittent for months, somewhat subsided last couple of month, lost at least 7 lbs over last year- does not eat much. Dysphagia and taking Percocet last night and today- feels as something is stuck in her lower esophagus 4. Hematemesis- after taking the Percocet last night and again this a.m. 5. Dizziness- present for long time, reports intermittent and mainly with standing , fell several days ago and injured her left leg- has bruising Has appointment to see new PCP this coming Sunday Dr. Ku attempted to walk patient and per report patient was ataxic.Patient denies alcohol consumption or previous h/o strokes D/W Dr. Mcclelland Past Medical History: Past Medical History Diagnosis Date ??? Patient denies relevant medical history Past Surgical History: Past Surgical History Procedure Laterality Date ??? Pt denies relevant surgical history Current Medications: Prior to Admission Medications Prescriptions Last Dose Informant Patient Reported? Taking? HYDROcodone-acetaminophen (NORCO) 5-325 mg tablet No No Sig: Take 1 Tablet by mouth every 4 hours as needed for Pain, Moderate. Max Daily Amount: 6 Tablet multivitamin (DAILY-CINTHYA) tablet Yes No Sig: Take 1 Tablet by mouth daily. naproxen sodium (ANAPROX DS) 550 mg tablet Yes No Sig: Take 550 mg by mouth 2 times daily with meals. oxyCODONE-acetaminophen (PERCOCET) 5-325 mg tablet No No Sig: Take 1-2 Tablet by mouth every 6 hours as needed for Pain, Moderate. Max Daily Amount: 8 Tablet predniSONE (DELTASONE) 20 mg tablet No No Sig: Take 2 Tablet (40 mg) by mouth daily Take two pills by mouth daily until all are gone.. sulfamethoxazole-trimethoprim (BACTRIM DS) 800-160 mg tablet No No Sig: Take 2 Tablet by mouth 2 times daily. Facility-Administered Medications: None Medication Allergies:No Known Allergies Family History: Family History Problem Relation Age of Onset ??? Uterine Cancer Mother Social History: History Substance Use Topics ??? Smoking status: Current Every Day Smoker -- 1.00 packs/day for 65 years Types: Cigarettes ??? Smokeless tobacco: Never Used ??? Alcohol Use: No Review of Systems History from the patient General positive for - weight loss HEENT Denies headaches, blurry vision, Hearing loss, Tinnitus, Nasal discharges. Reports dysphagia Heme/Lymph negative for swollen glands or abnormal bleeding Endocrine negative for polyuria/polydipsia or new changes in weight CV negative for chest pain or dyspnea on exertion Respiratory negative for cough, shortness of breath, or wheezing GI positive for - appetite loss, hematemesis, nausea/vomiting and swallowing difficulty/pain negative for dysuria, trouble voiding, or hematuria MS positive for - lower back pain, radiating left leg Neuro negative for TIA or stroke symptoms Psychiatric negative Derm positive for - erythema left anterior lower leg All Other ROS Negative Physical Exam: BP 139/69 mmHg Temp(Src) 98.3 ??F (36.8 ??C) (Oral) Resp 18 Ht 5' 4 (1.626 m) Wt 54.432 kg(120 lb) BMI 20.59 kg/m2 SpO2 98% General appearance alert, cooperative, no distress Head Normocephalic, without obvious abnormality, atraumatic Eyes conjunctivae/corneas clear. PERRL, EOM's intact. Ears normal external ear canals Nose Nares normal. Mucosa normal. No drainage or sinus tenderness. Throat Lips, mucosa, and tongue normal. Neck supple, no adenopathy, no carotid bruit and no JVD Lungs clear to auscultation bilaterally Heart regular rate and rhythm, S1, S2 normal, no murmur, click, rub or gallop Abdomen soft, non-tender. Bowel sounds normal. No masses, No organomegaly Neurologic AAO X3, Cranial nerves 2 thru 12 grossly normal, non-focal exam Extremities Area of redness on the left ma better then marked yesterday during ER visit Skin No rashes or lesions Data Base: CBC: Recent Labs 07/19/15 0840 WBC 13.6* HGB 13.6 HCT 40.8 PLT 255 MCV 90.1 BMP: Recent Labs 07/19/15 0840 NA 140 K 4.0 CL 100 CO2 25 ANIONGAP 15 CA 9.3 GLUCOSE 101* BUN 17 CREAT 0.98* OTHER LYTES:No results for input(s): MG, PO4 in the last 72 hours. AccuCheks: No results for input(s): GLUCPOC in the last 72 hours. LFTs: Recent Labs 07/19/15 0840 ALKPHOS 51 TOTALPROTEIN 7.0 BILITOTAL 0.4 ALBUMIN 4.0 ALT 16 AST 20 Coagulation: No results for input(s): PT, INR, APTT in the last 72 hours. Cardiac markers: No results for input(s): CKMB, TROPONIN in the last 72 hours. Imaging: ECG personally reviewed: Sinus rhythm, HR 80,no significant abnormality X-ray L spine: L5-S1 spondylolisthesis. 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 Diffuse osteopenia. Vascular calcification. Assessment/Plan: Assessment/Plan: 1. Pharyngoesophageal dysphagia- ongoing for some time, exacerbated over last 24 hrs, associated with vomiting and hematemesis last 24 hrs,recent steroids and NSAID treatment, weight loss, loss of appetite, smoker. Plan; NPO until GI sees, GI consult, serial H/H, Protonix IV daily, no NSAID 2. Left leg cellulitis-milld and styaretd to improve after 2 doses of Septra. Plan; start cellulitis pathway with IV Ancef, check MRSA 3. Hematemesis- see #1 4. Tobacco abuse-The patient smokes 1 ppd.The diagnosis of dysphagia, hematemesis could caused by, worsened or adversely affected by her tobacco use. I have spent greater than 3 but not more than 10 minutes ([id number]) on counseling on smoking/tobacco cessation independent of the time otherwise relatedto this visit today.Matias ordered 5. Sciatica of left side- recent X-ray L-spine as above with significant arthritic changes. Plan; Lidoderm pathcc, IV Morphine prn for now, PT to see, consider MRI back If pain persist. 6. Weight loss 7. Dizziness/ Difficulties walking/Fall- dizziness is mainly orthostatic, fell several days ago butfamily reports multiple episodes, ongoing problem for some time,no repots of previous strokes, no alcohol . Plan: check orthostatics, check echo, check B12, check TSH, CT head ADDENDUM: S/p EGD and results reviewed, GI recommends Protonix IV bid and clear liquid diet. Plan; change Protonix to bid, start CLD, [place] prn instead IV Morphine prn for pain ??? DVT Prophlaxis: Heparin ??? Current Planned Disposition: home with HH ??? Plan discussed with patient; questions answered; patient agrees with current plan. ??? Current Code Status: Full [facility] Taveras [facility] [phone] documented in this encounter Procedure Notes * Johnson Yates MD - 07/19/2015 3:14 PM CDTAssociated Order(s): GI REPORT [facility] Endoscopy Patient Name: Valeria Lake Procedure Date No Time: 07/19/2015 Date of : 1935 Admit Type: Outpatient Attending MD: Johnson Yates MD Procedure: Upper GI endoscopy Indications: Dysphagia, Hematemesis Providers: Johnson Yates MD Referring MD: Medicines: General Anesthesia Complications: No immediate complications. Estimated blood loss: Minimal. Procedure: Informed consent was obtained for the procedure, including moderate sedation after risks were discussed. Based on the pre-procedure assessment, including review of the patient?s medical history, medications, allergies, and review of systems, the patient was deemed to be an appropriate candidate for sedation. A timeout was performed. Continuous ECG monitoring, pulse oximetry, blood pressure monitoring, and direct observation were performed. The Endoscope was introduced through the mouth, and advanced to the second part of duodenum. The upper GI endoscopy was accomplished without difficulty. The patient tolerated the procedure well. Estimated Blood Loss: Estimated blood loss was minimal. Findings: A small bleeding Sandra-Banegas tear was found. There was surrounding esophagitis and mild narrowing at the GE junction consistent with reflux changes. Area was successfully injected with 2 mL of a 1:10,000 solution of epinephrine for hemostasis. The scope was advanced into the stomach without resistance. Diffuse nodular mucosa was found in the gastric body. Biopsies were taken with a cold forceps for histology. Biopsies were taken with a cold forceps for Helicobacter pylori testing using CLOtest. Diffuse moderate inflammation characterized by congestion (edema), erythema, granularity and shallow ulcerations was found in the duodenal bulb through the C-sweep. The second duodenum was completely normal. There was no evidence of outlet obstruction. Biopsies were taken with a cold forceps for histology. Impression: - Sandra-Banegas tear. Injected. - Nodular mucosa in the gastric body. Biopsied. - Duodenitis. Biopsied. Recommendation: - Await pathology results. Suspect H pylori in stomach as cause of duodenal ulceration. - Clear liquid diet tonight. Protonix IV twice daily. Johnson Yates MD 07/19/2015 3:13 PM This report has been signed electronically. Number of Addenda: [address]; [place] [address] documented in this encounter Consult Notes * Ana Gaston RD - 07/20/2015 3:46 PM CDTAssociated Order(s): IP CONSULT TO NUTRITION SERVICES Nutrition Consult: decreased appetite Pt was busy x 3 today, and has since been discharged. documented in this encounter OR Notes * Emily-OP - Juju Bourgeois RN - 07/19/2015 2:53 PM CDT Submucosal injection 2 ml Epinephrine 1:1000 diluted in 9 ml of sterile normal saline at [facility] Dr. Yates's instruction. documented in this encounter ED Notes * Christine Richter RN - 07/19/2015 8:24 AM CDT Pt states that she was here for cellulitis yesterday and put on antibiotics and Percocet for pain. Pt states that she took a pain pill last night and then vomited and took on this morning on an emptystomach again and then vomited a couple of times. Pt has some epigastric pain but no other problems. No distress noted. Her left leg looks good, it just looks like a bruise and is not warm to the touch. Pt's son is by her side. Dr Thorne in room to examine her and stated that she would give her some meds for the nausea and then IVF and check her blood work. Pt connected to pulse ox and BP. * Monica Thorne MD - 07/19/2015 8:15 AM CDT HISTORY OF PRESENT ILLNESS Valeria Lake, a 80 y.o. female presents to the ED with a Chief Complaint of Vomiting Subjective HPI Comments: 8:16 AM: Valeria Lake is a 80 y.o. female who presents to the Emergency Department c/o nausea and vomiting which began last night after taking prescription medication. Patient was in ED yesterday, diagnosed with possible early L leg cellulitis and prescribed Septra and Percocet. Patient reports nausea and vomit with blood last night immediately after taking the Septra and Percoet. She had another episode of vomiting this morning after taking the medication again.She also developed epigastric pain when trying to eat or drink anything. She has light headedness and nausea currently. Patient denies fever, leg swelling, or any other symptoms. No other medical complaints at this time. 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 HENT: Negative for congestion, dental problem, ear pain, nosebleeds, sore throat and trouble swallowing. Eyes: Negative for visual disturbance. Respiratory: Negative for cough, chest tightness and shortness of breath. Cardiovascular: Negative for chest pain, palpitations and leg swelling. Gastrointestinal: Positive for nausea, vomiting and abdominal pain (epigastric). Negative for diarrhea, constipation and abdominal distention. Genitourinary: Negative for vaginal bleeding, vaginal discharge, difficulty urinating, menstrual problem and pelvic pain. Musculoskeletal: Negative for myalgias, joint swelling and neck pain. Skin: Negative for rash. + L leg erythema Neurological: Negative for dizziness, syncope, light-headedness and headaches. Hematological: Does not bruise/bleed easily. Psychiatric/Behavioral: Negative for suicidal ideas, hallucinations and self- injury. The patient isnot nervous/anxious. PAST MEDICAL HISTORY REVIEWED MEDICAL: Patient has a past medical history of Patient denies relevant medical history. SURGICAL: Patient has past surgical history that includes pt denies relevant surgical history. FAMILY: Patient's family history includes Uterine Cancer in her mother. SOCIAL: reports that she has been smoking Cigarettes. She has a 65 pack-year smoking history. She has neverused smokeless tobacco. She reports that she does not drink alcohol or use illicit drugs. No history on file. Social History Other Topics Concern ??? Not on file PROBLEM LIST: Patient has Pharyngoesophageal dysphagia; Left leg cellulitis; Hematemesis; Tobacco abuse; Sciaticaof left side; and Weight loss on her problem list. ALLERGIES Review of patient's allergies indicates no known allergies. HOME MEDICATIONS Current Discharge Medication List CONTINUE these medications which have NOT CHANGED Details sulfamethoxazole-trimethoprim (BACTRIM DS) 800-160 mg tablet Take 2 Tablet by mouth 2 times daily. Qty: 28 Tablet, Refills: None oxyCODONE-acetaminophen (PERCOCET) 5-325 mg tablet Take 1-2 Tablet by mouth every 6 hours as neededfor Pain, Moderate. Max Daily Amount: 8 Tablet Qty: 10 Tablet, Refills: None naproxen sodium (ANAPROX DS) 550 mg tablet Take 550 mg by mouth 2 times daily with meals. multivitamin (DAILY-CINTHYA) tablet Take 1 Tablet by mouth daily. HYDROcodone-acetaminophen (NORCO) 5-325 mg tablet Take 1 Tablet by mouth every 4 hours as needed for Pain, Moderate. Max Daily Amount: 6 Tablet Qty: 15 Tablet, Refills: 0 Objective PHYSICAL EXAM INITIAL VS BP: 139/69 mmHg (07/19/15807), Heart Rate: 99 bpm (07/19/15807), Resp: 18 (07/19/15807), Temp: 98.3 ??F (36.8 ??C) (07/19/15807), Temp src: Oral (07/19/15807), SpO2: 98 % (07/19/15807), Height: 5' 4 (162.6 cm) (07/19/15807), Weight: 54.432 kg (120 lb) (07/19/15807), BMI (Calculated): 20.64 (07/19/15807) No LMP recorded. Patient is postmenopausal. Physical Exam Constitutional: She is oriented to person, place, and time. She appears well- developed and well-nourished. No distress. Pleasant elderly female HENT: Head: Normocephalic and atraumatic. Mouth/Throat: Oropharynx is clear and moist. Eyes: EOM are normal. Pupils are equal, round, and reactive to light. Neck: Normal range of motion. Neck supple. No thyromegaly present. Cardiovascular: Normal rate, regular rhythm, normal heart sounds and intact distal pulses. No murmur heard. Pulmonary/Chest: Effort normal and breath sounds normal. No respiratory distress. She has no wheezes. She has no rhonchi. She has no rales. Abdominal: Soft. Bowel sounds are normal. She exhibits no distension and no mass. There is tenderness (mild) in the epigastric area. There is no guarding. Musculoskeletal: Normal range of motion. She exhibits no edema or tenderness. Area over L ma with mild erythema and warmth, no drainage No swelling to her legs Lymphadenopathy: She has no cervical adenopathy. Neurological: She is alert and oriented to person, place, and time. No cranial nerve deficit. Coordination normal. Attempted to ambulate patient and she has some ataxia and has to hold on to furniture and bed. Skin: Skin is warm and dry. No rash noted. No erythema. Psychiatric: She has a normal mood and affect. Her behavior is normal. Nursing note and vitals reviewed. DIAGNOSTICS LAB: Labs this ED Encounter CBC WITH DIFFERENTIAL - Abnormal WBC 13.6 (*) RDW 14.6 (*) MPV 9.1 (*) NEUTROPHILS 76 (*) LYMPHOCYTES 15 (*) NEUTROPHIL ABSOLUTE 10.32 (*) IMMATURE GRANULOCYTES 1 (*) IMMATURE GRANULOCYTES ABSOLUTE 0.08 (*) RBC 4.53 HEMOGLOBIN 13.6 HEMATOCRIT 40.8 MCV 90.1 MCH 30.0 MCHC 33.3 RDW-STDEV 47.9 PLATELETS 255 MONOCYTES 9 EOSINOPHILS 0 BASOPHILS 0 LYMPHOCYTE ABSOLUTE 1.98 MONOCYTE ABSOLUTE 1.15 EOSINOPHIL ABSOLUTE 0.05 BASOPHILS ABSOLUTE 0.02 COMPREHENSIVE METABOLIC PANEL - Abnormal CREATININE 0.98 (*) GLUCOSE 101 (*) SODIUM 140 POTASSIUM 4.0 CHLORIDE 100 CO2 25 CALCIUM 9.3 BUN 17 TOTAL PROTEIN 7.0 ALBUMIN 4.0 BILIRUBIN TOTAL 0.4 ALKALINE PHOSPHATASE 51 AST 20 ALT 16 GFR 55 GFR, >60 ANION GAP 15 HELICOBACTER PYLORI RAPID UREASE TEST PATHOLOGY RADIOLOGY: XR CHEST PA AND LATERAL (Results Pending) EKG: NSR 80, normal axis, no ectopy and no ischemic changes PROCEDURES Procedures MEDICAL DECISION MAKING AND PLAN OF CARE 80 yr old female presents with vomiting after taking medications last night. Initial impression wasthis is from the medications last night. However, family states this has been going on for some time and patient has been loosing weight and not seen a physician for over 5 years. She has also been feeling dizzy. Her cellulitis looks relatively minor, but will switch to IV antibiotics given her difficulty swallowing. Will admit for further work up. REEVALUATION 10:38 AM: Nurse reports patient would not like to take Tramadol. Patient states difficulty swallowing pills and Tramadol did not work for her pain yesterday. Will try liquid Golden Eagle. 11:05 AM: Family concerned for her falling and state family history of esophageal cancer and concern for this given patient complains of something being stuck in her throat at times. Patient denies any issues of swallowing. Patient states she ate a Big Mac for lunch at 3 PM and had no swallowing issues. Patient reports dizziness upon first standing up and states holding onto furniture until it passes spontaneously. Given her multiple symptoms, updated patient on plan for admission and rule out. Patient agrees with the plan. The opportunity for questions was given and questions were answered to the patient's satisfaction. All questions and concerns have been addressed. ED provider and ED nurse verbally discussed patient plan of care at this time. CASE DISCUSSED 11:25 AM: Discussed case with ([facility]) patient's lab results, physical exam findings, and current evaluations. Agrees with the proposed management and plan. They are aware ofthe patient's condition and diagnostic findings and will accept care of the patient upon admission of care. Agrees with admission to the Medical floor. Medications Administered During the ED Stay from 07/19/2015 0807 to 07/19/2015 1549 Date/Time Order Dose Route Action 07/19/2015 0843 ondansetron (ZOFRAN) 4 mg/2 mL injection 4 mg 4 mg IV Given 07/19/2015 0843 pantoprazole (PROTONIX) injection 40 mg 40 mg IV Given 07/19/2015 0943 sodium chloride 0.9% bolus solution 500 mL 0 mL IV Stopped 07/19/2015 0843 sodium chloride 0.9% bolus solution 500 mL 500 mL IV New Bag 07/19/2015 1045 traMADol (ULTRAM) tablet 50 mg 50 mg Oral Refused 07/19/2015 1051 HYDROcodone-acetaminophen (HYCET) 7.5-325 mg/15 mL oral solution 15 mL 15 mL Oral Given 07/19/2015 1242 ceFAZolin (ANCEF) IVPB 1,000 mg 0 mg IV Stopped 07/19/2015 1138 ceFAZolin (ANCEF) IVPB 1,000 mg 1,000 mg IV New Bag 07/19/2015 1139 sodium chloride 0.9% infusion IV New Bag 07/19/2015 1542 lactated ringers solution 0 IV Stopped 07/19/2015 1445 lactated ringers solution IV Fluid Volume 07/19/2015 1412 lactated ringers solution IV New Bag Current Discharge Medication List CONTINUE these medications which have NOT CHANGED Details sulfamethoxazole-trimethoprim (BACTRIM DS) 800-160 mg tablet Take 2 Tablet by mouth 2 times daily. Qty: 28 Tablet, Refills: None oxyCODONE-acetaminophen (PERCOCET) 5-325 mg tablet Take 1-2 Tablet by mouth every 6 hours as neededfor Pain, Moderate. Max Daily Amount: 8 Tablet Qty: 10 Tablet, Refills: None naproxen sodium (ANAPROX DS) 550 mg tablet Take 550 mg by mouth 2 times daily with meals. multivitamin (DAILY-CINTHYA) tablet Take 1 Tablet by mouth daily. HYDROcodone-acetaminophen (NORCO) 5-325 mg tablet Take 1 Tablet by mouth every 4 hours as needed for Pain, Moderate. Max Daily Amount: 6 Tablet Qty: 15 Tablet, Refills: 0 LAST VS BP: (!) 148/68 mmHg (07/19/15 1550), Heart Rate: 80 bpm (07/19/15 1550), Resp: 18 (07/19/15 1550), Temp: 97.5 ??F (36.4 ??C) (07/19/15 1550), Temp src: Oral (07/19/15 1550), SpO2: 93 % (07/19/15 1550) CLINICAL IMPRESSION Final diagnoses: [R13.14] Pharyngoesophageal dysphagia (Primary) [L03.116] Left leg cellulitis [K92.0, R11.0] Hematemesis with nausea [R42] Dizziness [R53.1] Weakness CODING MDM Coding Reviewed: previous chart, nursing note and vitals Interpretation: SP02, labs, ECG and x-ray I have reviewed nursing notes and agree unless otherwise mentioned. DISPOSITION, EDUCATION AND MEDICATION RECONCILIATION Medications reconciled. See after visit summary for patient education on discharged patients. Disposition: Patient admitted to the medical floor in stable condition. ATTESTATION STATEMENTS This note has been prepared by Sri Gresham acting as a scribe for Dr. Monica Thorne on 07/19/2015 at 12:54 PM. The scribe's documentation has been prepared under my direction and personally reviewed by me, Herlinda Thorne , in its entirety on 07/19/2015 at 3:58 PM. I confirm that the note above accurately reflects all work, treatment, procedures, and medical decision making performed by me. documented in this encounter Miscellaneous Notes * Care Plan - Lolis Mcfadden RN - 07/20/2015 5:12 AM CDT Problem: Fall/Trauma/Injury Risk (Adult) Goal: Fall/Trauma/Injury Risk: Absence of Trauma/Injury/Falls Patient will demonstrate the desired outcomes. Outcome: Progressing Problem: General Plan of Care (Adult, Obstetrics) Goal: Individualization/Patient-Specific Goal (Adult, Obstetrics) The patient and/or their loan representative will achieve their patient-specific goals related to the plan of care. The patient-specific goals include: pain lle controlled, no gi bleeding Before discharge Outcome: Progressing Goal: Identify Discharge Needs Patients discharge needs are identified. Outcome: Progressing Problem: Cellulitis (Adult) Goal: Prevent/Manage Potential Problems Signs and symptoms of listed problems will be absent or manageable. Outcome: Progressing * Care Plan - Loils Mcfadden RN - 07/20/2015 2:55 AM CDT PW GEN: CELLULITIS, ADULT - ADMIT TO MED SURG Pathway Day 1 ? ? Hemodynamic: Temp > 96.8F (36C) or < 100.4F (38C), HR<90/min, Resp </= 20/min., SBP>90mmHg Met ??? Pain Management: Meets patient's acceptable pain control/comfort level Met ??? Symptom Management: No increase in wound borders; erythema or induration Met ??? Activity: patient able to transfer or ambulate without physical assistance. Met ??? Neurovascular: Affected extremity pulse continues to be palpable or surrounding skin sensation intact Met ??? Discharge Planning: Discharge needs identified and/or admission screening assessments completed. Met PW GEN: SKIN CARE PREVENTION: PRESSURE ULCER Pathway Day 1 ??? Skin/Integumentary: Patient maintains intact skin over bony prominences and under medical devices with Alejo Score maintained or improved. Interventions initiated to maintain intact skin including evaluation for applicable dressings. Met ??? Nutrition Management: Patient and/or health care delegate verbalize understanding of adequate intake of protein (4 or more servings of meat and dairy products daily) and fluid. Met ? ? Bladder & Bowel Movement: Patient is continent of urine and/or stool or moisture managementfor incontinence. Met ??? Pain Management: Patient denies pain over bony prominences. Met ??? Activity/Rehab: Patient moves independently and performs activity as ordered or patient and/or health care delegate verbalizes understanding of repositioning or offloading techniques. Met ??? Patient Education: Patient and/or health care delegate verbalize understanding of pressure soreprevention interventions and received printed pressure sore educational handout. Met ??? Discharge Planning: Discharge needs identified with patient and/or healthcare delegate involvedin discharge planning. Met * Care Plan - Olga Trejo RN - 07/19/2015 5:55 PM CDT Problem: Fall/Trauma/Injury Risk (Adult) Goal: Fall/Trauma/Injury Risk: Absence of Trauma/Injury/Falls Patient will demonstrate the desired outcomes. Outcome: Progressing Educated importance to fallow Fall precautions to prevent Falls, verbalize understanding Problem: General Plan of Care (Adult, Obstetrics) Goal: Plan of Care Review (Adult, Obstetrics) The patient and/or their loan representative will communicate an understanding of their plan of care. Outcome: Progressing Patient was c/o pain lle, was given po pain Medication. Continue ivf and iv antibiotics, decline supper at present time,SR on telemetry 6-2 Problem: Cellulitis (Adult) Goal: Prevent/Manage Potential Problems Signs and symptoms of listed problems will be absent or manageable. Outcome: Progressing Problem: Pressure Ulcer Risk or Treatment Goal: Prevent/Manage Potential Problems Maintain/improve skin integrity Outcome: Progressing * Care Plan - Olga Trejo RN - 07/19/2015 5:22 PM CDT Undress and Assess performed by: Olga SOTOMAYOR and Carlos TECHNOLOGY TRAINER Admission or upon transfer to: room 650 Patient DOES NOT have skin breakdown. Location of breakdown: bruise w/ redness lle post fall, and small Abrasion, bruise middle chest Description of breakdown: Wound care consult WAS NOT initiated. Please note: Reconsult is NOT necessary if no change or deterioration o 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 HAND MODEL Office Visit [facility] Oncology and Hematology - [place] [address] [facility] [address] [place] [address] Reymundo Lee MD [address] [facility] [address] [place] [address] documented as of this encounter Procedures Procedure Name Priority Date/Time Associated Diagnosis Comments TELEMETRY REPORT 07/23/2015 2:00 PM CDT ECHO COMPLETE Routine 07/20/2015 9:20 AM CDT BASIC METABOLIC PANEL Routine 07/20/2015 5:53 AM CDT CBC WITH DIFFERENTIAL Routine 07/20/2015 5:33 AM CDT HEMOGLOBIN AND HEMATOCRIT Routine 2015 12:40 AM CDT HEMOGLOBIN AND HEMATOCRIT Routine 2015 6:58 PM CDT TSH REFLEXIVE Routine 07/19/2015 5:05 PM CDT T4 FREE Routine 07/19/2015 5:05 PM CDT VITAMIN B12 LEVEL Routine 07/19/2015 5:05 PM CDT MRSA PCR RAPID SCREEN Routine 07/19/2015 4:10 PM CDT GI REPORT 07/19/2015 3:16 PM CDT HELICOBACTER PYLORI RAPID UR EASE TEST Stat 07/19/2015 2:55 PM CDT PATHOLOGY Stat 07/19/2015 2:55 PM CDT ESOPHAGOGASTRODUODENOSCOPY 07/18 2:28 PM CDT XR CHEST PA AND LATERAL 2 VW Stat 02/2016 12:33 PM CDT EKG 12-LEAD Stat 07/19/2015 11:36 AM CDT CBC WITH DIFFERENTIAL Stat 07/19/2015 8:40 AM CDT COMPREHENSIVE METABOLIC PANEL Stat 8:40 AM CDT documented in this encounter Results * TELEMETRY REPORT (07/23/2015 2:00 PM CDT) us Provider Scanning ECG ORDERABLES Final Result * ECHO COMPLETE (07/20/2015 9:20 AM CDT) EJECTION FRACTION 62 INTERFACE SYSTEM 07/20/2015 8:46 AM CDT Narrative INTERFACE SYSTEM - 07/20/2015 10:16 AM CDT [address] [address] [email or web address] [email or web address] Echocardiography Patient: ?Valeria Lake MRN: ?[id number] Study ID: ? [id number] Gender: ? F : ?1935 Age: ?80 Race: ? CAU Height ?162.6cm Study Date: ? 07/20/2015 Weight: ? 57.6kg Access. #: ?[id number] BP: *Referring Physician:* Vita Taveras *Ordering Physician:* ??Vita Taveras Road Monkey: Indications: Dizziness STUDY CONCLUSIONS: SUMMARY: - Left ventricle: The cavity size was normal. Wall thickness ??was normal. Global systolic function was normal. The ??estimated ejection fraction was 62%. Diastolic function ??assessment consistent with increased left atrial pressure. - Aortic valve: Structurally normal valve. Trileaflet. - Aortic root: The aortic root was normal in size. - Mitral valve: Structurally normal valve. - Left atrium: The atrium was normal in size. - Right ventricle: The cavity size was normal. Systolic ??function was normal. - Pulmonary arteries: PA peak pressure: 33mm Hg (S). Cardiac Anatomy: LEFT VENTRICLE: ??The cavity size was normal. Wall thickness was normal. Global systolic function was normal. The estimated ejection fraction was 62%. Diastolic function assessment consistent with increased left atrial pressure. AORTIC VALVE: ?? Structurally normal valve. Trileaflet. Doppler: ?? No significant regurgitation. ?VTI ratio of LVOT to aortic valve: 0.61. Valve area: 1.92cm\S\2(VTI). Indexed valve area: 1.19cm\S\2/m\S\2 (VTI). Peak velocity ratio of LVOT to aortic valve: 0.62. Valve area: 1.96cm\S\2 (Vmax). Indexed valve area: 1.21cm\S\2/m\S\2 (Vmax). ?Mean gradient: 3mm Hg (S). Peak gradient: 6mm Hg (S). AORTA: ??Aortic root: The aortic root was normal in size. MITRAL VALVE: ?? Structurally normal valve. ?Doppler: ?? No significant regurgitation. ?Peak gradient: 5mm Hg (D). LEFT ATRIUM: ??The atrium was normal in size. RIGHT VENTRICLE: ??The cavity size was normal. Systolic function was normal. PULMONIC VALVE: ?? Structurally normal valve. ?Doppler: No significant regurgitation. TRICUSPID VALVE: ?? Structurally normal valve. ?Doppler: No significant regurgitation. RIGHT ATRIUM: ??The atrium was normal in size. PERICARDIUM: ??There was no pericardial effusion. SYSTEMIC VEINS: Inferior vena cava: The vessel was normal in size. 2D measurements ?Normal Left ventricle LV internal dimension, ED, chordal ?*34.6 mm ? 43-52 level, PLAX LV internal dimension, ES, chordal ? 24.1 mm ? 23-38 level, PLAX Fractional shortening, chordal level, ?30 % ?>29 PLAX LV posterior wall thickness, ED ?10 mm ? ------- IVS/LVPW ratio, ED ? 1.12 ?<1.3 Volume, ED, MOD, 2-plane ?*45 ml ? 55-101 Volume, ES, MOD, 2-plane ? 17 ml ? ------- Ejection fraction, MOD, 2-plane ?62 % ?------- Volume index, ED, MOD, 2-plane ? 28 ml/m\S\2 ?? ------- Volume index, ES, MOD, 2-plane ? 11 ml/m\S\2 ?? ------- Ventricular septum Septal thickness, ED ? 11.2 mm ? ------- LVOT Anterior-posterior diameter ? 2 mm ? ------- Area ? 3.14 cm\S\2 ? ------- Aorta Root diameter, ED ?29 mm ? ------- Left atrium Anterior-posterior dimension ? 26 mm ? ------- Anterior-posterior dimension index ? 1.61 cm/m\S\2 ?? <2.2 Doppler measurements ? Normal Main pulmonary artery Pressure, S ? *33 mm Hg ?<=30 LVOT Peak velocity, S ? 76.7 cm/s ? ------- VTI, S ? 18.8 cm ? ------- Aortic valve Peak velocity, S ?123 cm/s ? ------- VTI, S ? 30.8 cm ? ------- Mean gradient, S ?3 mm Hg ?------- Peak gradient, S ?6 mm Hg ?------- VTI ratio, LVOT/AV ? 0.61 ?------- Valve area, VTI ?1.92 cm\S\2 ? ------- Valve area index, VTI ?1.19 cm\S\2/m\S\2 ------- Peak velocity ratio, LVOT/AV ? 0.62 ?------- Valve area, Vmax ? 1.96 cm\S\2 ? ------- Valve area index, Vmax ? 1.21 cm\S\2/m\S\2 ------- Mitral valve Peak E-wave velocity ?116 cm/s ? ------- Peak A-wave velocity ? 94.8 cm/s ? ------- Deceleration time ?*243 ms ? 150-230 Peak gradient, D ?5 mm Hg ?------- Peak E/A ratio ? 1.22 ?------- Tricuspid valve Regurgitant peak velocity ? 242 cm/s ? ------- Peak RV-RA gradient, S ? 23 mm Hg ?------- Pulmonic valve Peak velocity, S ? 77.1 cm/s ? ------- Legend: Mean values are shown as u=mean value. Asterisk (*) álvarez values outside specified normal range. Procedure data: Procedure information: ??Transthoracic echocardiography. Scanning was performed from the parasternal, apical, and subcostal acoustic windows. ?Transthoracic echocardiography. ??Complete 2D, complete spectral Doppler, and color Doppler. ??Birthdate: ??Patient birthdate: 1935. ??Age: ??Patient is 80yr old. ??Sex: ??Gender: female. Height: ??Height: 162.6cm. Height: 64in. ??Weight: ??Weight: 57.6kg. Weight: 126.7lb. ??Body mass index: ??BMI: 21.8kg/m\S\2. Body surface area: ?BSA: 1.62m\S\2. ??Study date: ??Study date: July 20, 2015. ?Prepared and Electronically Authenticated Shen Ribeiro M.D. [id number] Procedure Note Shen Ribeiro MD - 07/20/2015 [place] [address] [email or web address] Patient: Valeria Lake Study ID: [id number] Gender: F : 1935 Age: 80 Race: ADRIENNE Height 162.6cm Study Date: 07/20/2015 Weight: 57.6kg Access. #: [id number] BP: *Referring Physician:* Vita Taveras *Ordering Physician:Vita [address] Monkey: Indications: Dizziness STUDY CONCLUSIONS: SUMMARY: - Left ventricle: The cavity size was normal. Wall thickness was normal. Global systolic function was normal. The estimated ejection fraction was 62%. Diastolic function assessment consistent with increased left atrial pressure. - Aortic valve: Structurally normal valve. Trileaflet. - Aortic root: The aortic root was normal in size. - Mitral valve: Structurally normal valve. - Left atrium: The atrium was normal in size. - Right ventricle: The cavity size was normal. Systolic function was normal. - Pulmonary arteries: PA peak pressure: 33mm Hg (S). Cardiac Anatomy: LEFT VENTRICLE: The cavity size was normal. Wall thickness was normal. Global systolic function was normal. The estimated ejection fraction was 62%. Diastolic function assessment consistent with increased left atrial pressure. AORTIC VALVE: Structurally normal valve. Trileaflet. Doppler: No significant regurgitation. VTI ratio of LVOT to aortic valve: 0.61. Valve area: 1.92cm\S\2(VTI). Indexed valve area: 1.19cm\S\2/m\S\2 (VTI). Peak velocity ratio of LVOT to aortic valve: 0.62. Valve area: 1.96cm\S\2 (Vmax). Indexed valve area: 1.21cm\S\2/m\S\2 (Vmax). Mean gradient: 3mm Hg (S). Peak gradient: 6mm Hg (S). AORTA: Aortic root: The aortic root was normal in size. MITRAL VALVE: Structurally normal valve. Doppler: No significant regurgitation. Peak gradient: 5mm Hg (D). LEFT ATRIUM: The atrium was normal in size. RIGHT VENTRICLE: The cavity size was normal. Systolic function was normal. PULMONIC VALVE: Structurally normal valve. Doppler: No significant regurgitation. TRICUSPID VALVE: Structurally normal valve. Doppler: No significant regurgitation. RIGHT ATRIUM: The atrium was normal in size. PERICARDIUM: There was no pericardial effusion. SYSTEMIC VEINS: Inferior vena cava: The vessel was normal in size. 2D measurements Normal Left ventricle LV internal dimension, ED, chordal *34.6 mm 43-52 level, PLAX LV internal dimension, ES, chordal 24.1 mm 23-38 level, PLAX Fractional shortening, chordal level, 30 % >29 PLAX LV posterior wall thickness, ED 10 mm ------- IVS/LVPW ratio, ED 1.12 <1.3 Volume, ED, MOD, 2-plane *45 ml 55-101 Volume, ES, MOD, 2-plane 17 ml ------- Ejection fraction, MOD, 2-plane 62 % ------- Volume index, ED, MOD, 2-plane 28 ml/m\S\2 ------- Volume index, ES, MOD, 2-plane 11 ml/m\S\2 ------- Ventricular septum Septal thickness, ED 11.2 mm ------- LVOT Anterior-posterior diameter 2 mm ------- Area 3.14 cm\S\2 ------- Aorta Root diameter, ED 29 mm ------- Left atrium Anterior-posterior dimension 26 mm ------- Anterior-posterior dimension index 1.61 cm/m\S\2 <2.2 Doppler measurements Normal Main pulmonary artery Pressure, S *33 mm Hg <=30 LVOT Peak velocity, S 76.7 cm/s ------- VTI, S 18.8 cm ------- Aortic valve Peak velocity, S 123 cm/s ------- VTI, S 30.8 cm ------- Mean gradient, S 3 mm Hg ------- Peak gradient, S 6 mm Hg ------- VTI ratio, LVOT/AV 0.61 ------- Valve area, VTI 1.92 cm\S\2 ------- Valve area index, VTI 1.19 cm\S\2/m\S\2 ------- Peak velocity ratio, LVOT/AV 0.62 ------- Valve area, Vmax 1.96 cm\S\2 ------- Valve area index, Vmax 1.21 cm\S\2/m\S\2 ------- Mitral valve Peak E-wave velocity 116 cm/s ------- Peak A-wave velocity 94.8 cm/s ------- Deceleration time *243 ms 150-230 Peak gradient, D 5 mm Hg ------- Peak E/A ratio 1.22 ------- Tricuspid valve Regurgitant peak velocity 242 cm/s ------- Peak RV-RA gradient, S 23 mm Hg ------- Pulmonic valve Peak velocity, S 77.1 cm/s ------- Legend: Mean values are shown as u=mean value. Asterisk (*) álvarez values outside specified normal range. Procedure data: Procedure information: Transthoracic echocardiography. Scanning was performed from the parasternal, apical, and subcostal acoustic windows. Transthoracic echocardiography. Complete 2D, complete spectral Doppler, and color Doppler. Birthdate: Patient birthdate: 1935. Age: Patient is 80yr old. Sex: Gender: female. Height: Height: 162.6cm. Height: 64in. Weight: Weight: 57.6kg. Weight: 126.7lb. Body mass index: BMI: 21.8kg/m\S\2. Body surface area: BSA: 1.62m\S\2. Study date: Study date: July 20, 2015. Prepared and Electronically Authenticated Shen Ribeiro M.D. [id number] us Vita Taveras MD ORDERABLES Final Result Performing Organization Address City/State/[facility] Co de Phone Number INTERFACE SYSTEM Refer to clinic/hospital department * (ABNORMAL) BASIC METABOLIC PANEL (07/20/2015 5:53 AM CDT) SODIUM 138 136 - 145 mmol/L 07/20/2015 7:09 AM CDT [facility] POTASSIUM 4.1 3.5 - 5.0 mmol/L 07/20/2015 7:09 AM CDT [facility] CHLORIDE 104 98 - 107 mmol/L 07/20/2015 7:09 AM CDT [facility] CO2 25 22 - 29 mmol/L 07/20/2015 7:09 AM CDT [facility] CALCIUM 8.2(L) 8.6 - 10.2 mg/dL 07/20/2015 7:09 AM T [facility] BUN 10 8 - 23 mg/dL 07/20/2015 7:09 AM T [facility] CREATININE 0.82 0.51 - 0.95 mg/dL 07/20/2015 7:09 AM T [facility] Comment: The GFR result is not clinically significant on patients <18 or >70 years of age. GLUCOSE 80 79 - 99 mg/dL 07/20/2015 7:09 AM T [facility] GFR >60 mL/min/1.7 3 sq meter 07/20/2015 7:09 AM T [facility] Comment: eGFR has not been validated for use in the elderly (> 70 years of age), women, patients with serious co-morbid conditions, or persons with extremes of body size or muscle mass and should also be interpreted with caution in patients with acute kidney failure, dialysis dependent patients, patients reporting exceptional dietary intake (e.g. vegetarian diet, high protein diets, creatine supplementation), and patients with severe liver disease. Based on National Kidney Disease Education Program If patient is , please refer to the GFR result. GFR, >60 mL/min/1.7 3 sq meter 07/20/2015 7:09 AM T [facility] ANION GAP 9 8 - 16 mmol/L 07/20/2015 7:09 AM T [facility] Blood Venipuncture - L ab Collect / Unknown 07/20/2015 5:53 AM CDT 07/20/2015 6:28 AM CDT us Vita Taveras MD CHEMISTRY ORDERABLES Final Re sult [facility]# [id number] [address] [place] [address] * (ABNORMAL) CBC WITH DIFFERENTIAL (07/20/2015 5:33 AM CDT) WBC 7.7 4.0 - 9.8 K/uL 07/20/2015 7:17 AM CDT [facility] - [facility] RBC 3.98 3.90 - 4.90 M/uL 07/20/2015 7:17 AM CDT [facility] HEMOGLOBIN 12.0 11.8 - 14.8 g/dL 07/20/2015 7:17 AM CDT [facility] HEMATOCRIT 37.2 35.5 - 44.0 % 07/20/2015 7:17 AM CDT [facility] MCV 93.5 82.0 - 99.0 fL 07/20/2015 7:17 AM CDT [facility] MCH 30.2 27.2 - 32.6 pg 07/20/2015 7:17 AM CDT [facility] MCHC 32.3 31.5 - 35.5 g/dL 07/20/2015 7:17 AM CDT [facility] RDW 14.7(H) 11.5 - 14.5 % 07/20/2015 7:17 AM CDT [facility] RDW-STDEV 50.6(H) 37.1 - 48.7 fL 07/20/2015 7:17 AM CDT [facility] PLATELETS 222 140 - 350 K/uL 07/20/2015 7:17 AM CDT [facility] MPV 9.4 9.3 - 12.4 fL 07/20/2015 7:17 AM CDT [facility] NEUTROPHILS 60 45 - 70 % 07/20/2015 7:17 AM CDT [facility] LYMPHOCYTES 27 16 - 45 % 07/20/2015 7:17 AM CDT [facility] MONOCYTES 12 3 - 13 % 07/20/2015 7:17 AM CDT [facility] EOSINOPHILS 1 <=7 % 07/20/2015 7:17 AM CDT [facility] - . [facility] BASOPHILS 0 <=3 % 07/20/2015 7:17 AM CDT [facility] NEUTROPHIL ABSOLUTE 4.57 1.90 - 7.00 K/uL 07/20/2015 7:17 AM CDT [facility] LYMPHOCYTE ABSOLUTE 2.04 0.70 - 4.50 K/uL 07/20/2015 7:17 AM CDT [facility] MONOCYTE ABSOLUTE 0.93 0.10 - 1.30 K/uL 07/20/2015 7:17 AM CDT [facility] EOSINOPHIL ABSOLUTE 0.11 <0.70 K/uL 07/20/2015 7:17 AM CDT [facility] BASOPHILS ABSOLUTE 0.01 <=0.20 K/uL 07/20/2015 7:17 AM CDT [facility] IMMATURE GRANULOCYTES 0 <=0 % 07/20/2015 7:17 AM CDT [facility] IMMATURE GRANULOCYTES ABSOLUTE 0.03 0.00 - 0.03 K/uL 07/20/2015 7:17 AM CDT [facility] Blood Venipuncture - L ab Collect / Unknown 07/20/2015 5:33 AM CDT 07/20/2015 6:30 AM CDT us Vita Taveras MD HEMATOLOGY ORDERABLES Final R esult [facility]# [id number] [address] [place] [address] * HEMOGLOBIN AND HEMATOCRIT (07/20/2015 12:40 AM CDT) [facility] HEMOGLOBIN 12.5 11.8 - 14.8 g/dL 07/20/2015 1:05 AM CDT [facility] SERVICES - . [facility] HEMATOCRIT 38.8 35.5 - 44.0 % 07/20/2015 1:05 AM CDT [facility] - [facility] Blood Venipuncture - L ab Collect / Unknown 07/20/2015 12:40 AM CDT 07/20/2015 12:53 AM CDT Vita Taveras MD HEMATOLOGY ORDERABLES Final R esult [facility]# [id number] [address] [place] [address] * HEMOGLOBIN AND HEMATOCRIT (07/19/2015 6:58 PM CDT) [facility] HEMOGLOBIN 12.0 11.8 - 14.8 g/dL 07/19/2015 7:09 PM CDT [facility] HEMATOCRIT 36.8 35.5 - 44.0 % 07/19/2015 7:09 PM CDT [facility] Blood Venipuncture - L ab Collect / Unknown 07/19/2015 6:58 PM CDT 07/19/2015 7:02 PM CDT Vita Taveras MD HEMATOLOGY ORDERABLES Final R esult Performing Organization Address City/[facility]/ZIP Co de Phone Number [facility]# [id number] [address] [place] [address] * T4 FREE (07/19/2015 5:05 PM CDT) [facility] T4 FREE 1.38 0.90 - 1.70 ng/dL 07/19/2015 6:51 PM CDT [facility] Blood Venipuncture - L ab Collect / Unknown 07/19/2015 5:05 PM CDT 07/19/2015 5:13 PM CDT Vita Taveras MD CHEMISTRY ORDERABLES Final Re sult [facility]# [id number] [address] [place] [address] * (ABNORMAL) TSH REFLEXIVE (07/19/2015 5:05 PM CDT) [facility] TSH 6.01(H) 0.27 - 4.20 uIU/mL 07/19/2015 6:21 PM CDT [facility] Blood Venipuncture - L ab Collect / Unknown 07/19/2015 5:05 PM CDT 07/19/2015 5:13 PM CDT Vita Taveras MD CHEMISTRY ORDERABLES Final Re sult Performing Organization Address [facility] Number [facility]# [id number] [address] [place] [address] * VITAMIN B12 LEVEL (07/19/2015 5:05 PM CDT) VITAMIN B12 444 211 - 946 pg/mL 07/19/2015 6:28 PM CDT [facility] Comment: It has been reported that between 5 to 10% of patients with values between 200 and 400 pg/mL may experience neuropsychiatric and hematologic abnormalities due to occult B12 deficiency. ??Less than 1% of patients with values above 400 pg/mL will have symptoms. Blood Venipuncture - L ab Collect / Unknown 07/19/2015 5:05 PM CDT 07/19/2015 5:13 PM CDT Vita Taveras MD CHEMISTRY ORDERABLES Final Re sult Performing Organization Address [facility] de Phone Number [facility]# [id number] [address] [place] [address] * MRSA PCR RAPID SCREEN (07/19/2015 4:10 PM CDT) MRSA PCR RESULT MRSA not detected MRSA not detected 07/19/2015 6:00 PM CDT [facility] Other, specify ANTERIOR NARES SWAB / Unknown Collection / Unknown 07/19/2015 4:10 PM CDT 07/19/2015 4:22 PM CDT Narrative [facility] - 07/19/2015 6:00 PM CDT This assay is used to detect Methicillin-Resistant S. aureus (MRSA) colonization of the nares. PLEASE NOTE: ??This test has not been approved to monitor effectiveness of MRSA decolonization. Residual DNA may temporarily be present after successful decolonization. This test was performed using an FDA approved screening methodology. Vita Taveras MD MICROBIOLOGY - GENERAL ORDERA BLES Final Result [facility]ORATORY SERVICES [facility]# [id number] [address] [place] [address] * GI REPORT (07/19/2015 3:16 PM CDT) Narrative Transcriptions Johnson Yates MD - 07/19/2015 3:14 PM CDT [facility] Endoscopy Patient Name: Valeria Lake Procedure Date No Time: 07/19/2015 Date of : 1935 Admit Type: Outpatient Attending MD: Johnson Yates MD Procedure: Upper GI endoscopy Indications: Dysphagia, Hematemesis Providers: Johnson Yates MD Referring MD: Medicines: General Anesthesia Complications: No immediate complications. Estimated blood loss: Minimal. Procedure: Informed consent was obtained for the procedure, including moderate sedation after risks were discussed. Based on the pre-procedure assessment, including review of the patient?s medical history, medications, allergies, and review of systems, the patient was deemed to be an appropriate candidate for sedation. A timeout was performed. Continuous ECG monitoring, pulse oximetry, blood pressure monitoring, and direct observation were performed. The Endoscope was introduced through the mouth, and advanced to the second part of duodenum. The upper GI endoscopy was accomplished without difficulty. The patient tolerated the procedure well. Estimated Blood Loss: Estimated blood loss was minimal. Findings: A small bleeding Sandra-Banegas tear was found. There was surrounding esophagitis and mild narrowing at the GE junction consistent with reflux changes. Area was successfully injected with 2 mL of a 1:10,000 solution of epinephrine for hemostasis. The scope was advanced into the stomach without resistance. Diffuse nodular mucosa was found in the gastric body. Biopsies were taken with a cold forceps for histology. Biopsies were taken with a cold forceps for Helicobacter pylori testing using CLOtest. Diffuse moderate inflammation characterized by congestion (edema), erythema, granularity and shallow ulcerations was found in the duodenal bulb through the C-sweep. The second duodenum was completely normal. There was no evidence of outlet obstruction. Biopsies were taken with a cold forceps for histology. Impression: - Sandra-Banegas tear. Injected. - Nodular mucosa in the gastric body. Biopsied. - Duodenitis. Biopsied. Recommendation: - Await pathology results. Suspect H pylori in stomach as cause of duodenal ulceration. - Clear liquid diet tonight. Protonix IV twice daily. Johnson Yates MD 07/19/2015 3:13 PM This report has been signed electronically. Number of Addenda: [address]; [place] [address] Johnson Yates MD GI PROCEDURE ORDERABLES Final R esult * (ABNORMAL) HELICOBACTER PYLORI RAPID UREASE TEST (07/19/2015 2:55 PM CDT) H. PYLORI RAPID UREASE TEST Positive(A ) Negative 07/20/2015 7:46 PM CDT [facility] Tissue ENTIRE STOMACH / Unknown Collection / Unknown 07/19/2015 2:55 PM CDT 07/19/2015 5:31 PM CDT Johnson Yates MD MICROBIOLOGY - GENERAL ORDERABL ES Final Result [facility] CLIA# [id number] [address] [place] [address] * PATHOLOGY (07/19/2015 2:55 PM CDT) CASE REPORT Surgical Pathology Report ? Case: [id number] ? Authorizing Provider: ??Johnson Yates MD ? Collected: ? 07/19/2015 02:55 PM ? Ordering Location: ? [facility] ?Received: ?07/19/2015 04:17 PM ? Emergency Department ? Pathologist: ? Omer Vieira MD ? Specimens: ?? A) - Small Intestine, duodenum bx ? B) - Stomach, gastic bx ? 07/21/2015 4:37 PM CDT [facility] FINAL DIAGNOSIS SMALL INTESTINE, DUODENUM, BIOPSY: - CHRONIC ACTIVE DUODENITIS. STOMACH, BIOPSY: - CHRONIC ACTIVE GASTRITIS (SEE DESCRIPTION). 07/21/2015 4:37 PM CDT [facility] IMEN DESCRIPTION (1) Small intestine, duodenal biopsy; (2) stomach, gastric biopsy. 07/21/2015 4:37 PM CDT [facility] OPERATIVE PROCEDURE EGD. 07/21/2015 4:37 PM T [facility] CLINICAL INFORMATION (1) Ulceration, rule out dysplasia/malignancy; (2) gastritis, rule out H.pylori. 07/21/2015 4:37 PM CDT [facility] GROSS DESCRIPTION The specimens are received in two containers, both labeled Valeria Lake. Received labeled small intestine, duodenum biopsy are five pieces of pale pink-linder tissue, each measuring 0.3 cm in maximal dimension. All are submitted in cassette A1. Received labeled stomach, gastric biopsy are six pieces of pink-linder tissue ranging from 0.2 to 0.3 cm in maximal dimension. All are submitted in cassette B1. STM/jmp 07/21/2015 4:37 PM CDT [facility] MICROSCOPIC DESCRIPTION The slides are labeled [id number]. The duodenal biopsy displays subtotal villous atrophy with a marked inflammatory infiltrate consisting of neutrophils and mononuclear cells. The features are most suggestive of a peptic duodenitis. The gastric biopsies display antral and fundic mucosa with chronic active gastritis. Organisms are identified with special stain for Helicobacter. 07/21/2015 4:37 PM T [facility] COMMENT Special stain and/or immunohistochemical results are interpreted with controls that demonstrate appropriate staining reactions. Note on use of immunocytochemistry reagents: This test was developed and its performance characteristic determined by [facility], Department of Laboratory Medicine. It has not been cleared or approved by the U.S. Food and Drug Administration. The FDA has determined that such clearance or approval is not necessary. The test is used for clinical purpose. It should not be regarded as investigational or for research. This laboratory is certified to perform high complexity testing. Case types starting with WS, WF, WB and WH are performed by [address], [place], [address]. All other case types are performed by [address], [address]. 07/21/2015 4:37 PM T [facility] Tissue (Small Intestine) 07/19/2015 2:55 PM CDT 07/19/2015 4:17 PM CDT Comment:Ulceration, R/o dysp lasia/malignancy Tissue specimen (specimen) ENTIRE STOMACH / Unknown 07/19/2015 2:55 PM CDT 07/19/2015 4:17 PM CDT Comment:Gastritis, r/o h.pyl joo Johnson Yates MD PATHOLOGY/CYTOLOGY ORDERABLES F inal Result [facility]ORATORY SERVICES [facility]# [id number] [address] [place] [address] * XR CHEST PA AND LATERAL (07/19/2015 12:33 PM CDT) Anatomical Region Laterality Modality Chest Computed Radiogr aphy 07/19/2015 12:3 3 PM CDT Impressions 07/20/2015 8:29 AM CDT IMPRESSION: 1. Biapical pleural thickening along with right upper lobe interstitial opacities noted. These findings may be related to scarring. An evolving right upper lobe infiltrate is not excluded. Follow-up is recommended. Narrative 07/20/2015 8:29 AM CDT PA AND LATERAL VIEWS OF THE CHEST ?? DATE: 07/19/2015 12:33 PM HISTORY: Chest pain and vomiting. COMPARISON: None. FINDINGS: There is bilateral interstitial opacities. Additionally, there are linear opacities within the right apex along with right apical pleural parenchymal thickening. This may be related to scarring. Mild left apical thickening is also seen. No pneumothorax is identified. There is no pleural fluid. The cardiomediastinal silhouette is within normal limits. Procedure Note Yanni Watson MD - 07/20/2015 PA AND LATERAL VIEWS OF THE CHEST DATE: 07/19/2015 12:33 PM HISTORY: Chest pain and vomiting. COMPARISON: None. FINDINGS: There is bilateral interstitial opacities. Additionally, there are linear opacities within the right apex along with right apical pleural parenchymal thickening. This may be related to scarring. Mild left apical thickening is also seen. No pneumothorax is identified. There is no pleural fluid. The cardiomediastinal silhouette is within normal limits. IMPRESSION IMPRESSION: 1. Biapical pleural thickening along with right upper lobe interstitial opacities noted. These findings may be related to scarring. An evolving right upper lobe infiltrate is not excluded. Follow-up is recommended. us Monica Thorne MD DIAGNOSTIC IMAGING ORDERABLE S Final Result * EKG 12-LEAD (07/19/2015 11:36 AM CDT) 07/19/2015 11:3 6 AM CDT Narrative INTERFACE SYSTEM - 07/19/2015 6:43 PM CDT ? Stationary ECG Study ? [facility] ? Test Date: ?07/19/2015 11:36 AM Pat Name: ? [place] ? Department: ?? 15 ?Room: ? 23 23 Gender: ? F ?On Site Services Specialist: ?? conkrc : ?1935 ? Requested By: MONICA YE Order Number: [id number] ?Reading : ?? Shen Ribeiro ? Measurements Intervals ?[place] ? Rate: ? 86 ? P: ?73 HI: ? 158 ?QRS: ?48 QRSD: ? 78 ? T: ?49 QT: ? 364 ? QTc: ?436 ? Interpretive Statements ? SINUS RHYTHM Electronically Signed On 07-19-2015 18:43:32 CDT by Shen Ribeiro Procedure Note Provider, Historical / Shen Ribeiro MD - 06/21/2021 Stationary ECG Study [facility] Test Date: 07/19/2015 11:36 AM Pat Name: [place]IA [place] Department: 15 Room: 23 23 Gender: F On Site Services Specialist: john : 1935 Requested By: MONICA YE Order Number: [id number] Reading MD: Shen Ribeiro Measurements Intervals [place] Rate: 86 P: 73 HI: 158 QRS: 48 QRSD: 78 T: 49 QT: 364 QTc: 436 Interpretive Statements SINUS RHYTHM Electronically Signed On 07-19-2015 18:43:32 CDT by Shen Ribeiro us Monica Thorne MD ECG ORDERABLES Edited Resul t - Final INTERFACE SYSTEM Refer to clinic/hospital department * (ABNORMAL) COMPREHENSIVE METABOLIC PANEL (07/19/2015 8:40 AM CDT) [facility] SODIUM 140 136 - 145 mmol/L 07/19/2015 9:28 AM [facility] - [facility] POTASSIUM 4.0 3.5 - 5.0 mmol/L 07/19/2015 9:28 AM [facility] - [facility] Comment: Moderate hemolysis present. ??Can cause significant falsely elevated result. ??Clinical judgement necessary. ??Redraw if indicated. CHLORIDE 100 98 - 107 mmol/L 07/19/2015 9:28 AM T [facility] - [facility] CO2 25 22 - 29 mmol/L 07/19/2015 9:28 AM [facility] - [facility] CALCIUM 9.3 8.6 - 10.2 mg/dL 07/19/2015 9:28 AM [facility] LABORATORY SERVICES - [facility] BUN 17 8 - 23 mg/dL 07/19/2015 9:28 AM [facility] - [facility] CREATININE 0.98(H) 0.51 - 0.95 mg/dL 07/19/2015 9:28 AM [facility] - [facility] Comment: The GFR result is not clinically significant on patients <18 or >70 years of age. GLUCOSE 101(H) 79 - 99 mg/dL 07/19/2015 9:28 AM [facility] LABORATORY SERVICES [facility] TOTAL PROTEIN 7.0 6.7 - 8.6 g/dL 07/19/2015 9:28 AM [facility] - [facility] ALBUMIN 4.0 3.5 - 5.2 g/dL 07/19/2015 9:28 AM [facility] - [facility] BILIRUBIN TOTAL 0.4 0.2 - 1.1 mg/dL 07/19/2015 9:28 AM [facility] - [facility] ALKALINE PHOSPHATASE 51 35 - 104 U/L 07/19/2015 9:28 AM [facility] - [facility] AST 20 <33 U/L 07/19/2015 9:28 AM [facility] - [facility] Comment: Hemolysis present. Result may be falsely elevated. ALT 16 <34 U/L 07/19/2015 9:28 AM CDT [facility]ATORY [facility] - [facility] Comment: Hemolysis present. Result may be falsely elevated. GFR 55 mL/min/1.7 3 sq meter 07/19/2015 9:28 AM CDT [facility] LABORATORY SERVICES - [facility] Comment: eGFR has not been validated for use in the elderly (> 70 years of age), women, patients with serious co-morbid conditions, or persons with extremes of body size or muscle mass and should also be interpreted with caution in patients with acute kidney failure, dialysis dependent patients, patients reporting exceptional dietary intake (e.g. vegetarian diet, high protein diets, creatine supplementation), and patients with severe liver disease. Based on National Kidney Disease Education Program If patient is , please refer to the GFR result. GFR, >60 mL/min/1.7 3 sq meter 07/19/2015 9:28 AM CDT [facility] LABORATORY [facility] ANION GAP 15 8 - 16 mmol/L 07/19/2015 9:28 AM T [facility] SERVICES - [facility] Blood Collection / Unknown 07/19/2015 8:40 AM CDT 07/19/2015 8:48 AM CDT us Monica Thorne MD CHEMISTRY ORDERABLES Final R esult [facility] [facility]# [id number] [address] [facility] [place] [address] * (ABNORMAL) CBC WITH DIFFERENTIAL (07/19/2015 8:40 AM CDT) WBC 13.6(H) 4.0 - 9.8 K/uL 07/19/2015 8:55 AM CDT [facility] - [facility] RBC 4.53 3.90 - 4.90 M/uL 07/19/2015 8:55 AM CDT [facility] - [facility] HEMOGLOBIN 13.6 11.8 - 14.8 g/dL 07/19/2015 8:55 AM CDT [facility] LAB[facility]ATORY SERVICES - [facility] HEMATOCRIT 40.8 35.5 - 44.0 % 07/19/2015 8:55 AM CDT [facility] - [facility] MCV 90.1 82.0 - 99.0 fL 07/19/2015 8:55 AM CDT [facility] - [facility] MCH 30.0 27.2 - 32.6 pg 07/19/2015 8:55 AM CDT [facility] - [facility] MCHC 33.3 31.5 - 35.5 g/dL 07/19/2015 8:55 AM CDT [facility] RDW 14.6(H) 11.5 - 14.5 % 07/19/2015 8:55 AM CDT [facility] RDW-STDEV 47.9 37.1 - 48.7 fL 07/19/2015 8:55 AM CDT [facility] PLATELETS 255 140 - 350 K/uL 07/19/2015 8:55 AM CDT [facility] - [facility] MPV 9.1(L) 9.3 - 12.4 fL 07/19/2015 8:55 AM CDT [facility] NEUTROPHILS 76(H) 45 - 70 % 07/19/2015 8:55 AM CDT [facility] LYMPHOCYTES 15(L) 16 - 45 % 07/19/2015 8:55 AM CDT [facility] MONOCYTES 9 3 - 13 % 07/19/2015 8:55 AM CDT [facility] EOSINOPHILS 0 <=7 % 07/19/2015 8:55 AM CDT [facility] BASOPHILS 0 <=3 % 07/19/2015 8:55 AM CDT [facility] NEUTROPHIL ABSOLUTE 10.32(H) 1.90 - 7.00 K/uL 07/19/2015 8:55 AM CDT [facility] LYMPHOCYTE ABSOLUTE 1.98 0.70 - 4.50 K/uL 07/19/2015 8:55 AM CDT [facility] MONOCYTE ABSOLUTE 1.15 0.10 - 1.30 K/uL 07/19/2015 8:55 AM CDT [facility] EOSINOPHIL ABSOLUTE 0.05 <0.70 K/uL 07/19/2015 8:55 AM CDT [facility] LABORATORY [facility] BASOPHILS ABSOLUTE 0.02 <=0.20 K/uL 07/19/2015 8:55 AM CDT [facility] LABORATORY [facility] IMMATURE GRANULOCYTES 1(H) <=0 % 07/19/2015 8:55 AM T [facility] LABORATORY [facility] Comment:IG (Immature Granulo cyte) count includes Metamyelocytes, Myelocytes, and Promyelocytes IMMATURE GRANULOCYTES ABSOLUTE 0.08(H) 0.00 - 0.03 K/uL 07/19/2015 8:55 AM CDT [facility] LABORATORY [facility] Blood Collection / Unknown 07/19/2015 8:40 AM CDT 07/19/2015 8:48 AM CDT us Monica Thorne MD HEMATOLOGY ORDERABLES Final Result [facility] [employer] [facility]# [id number] [address] [place] [address] [place] [address] documented in this encounter Visit Diagnoses Diagnosis Pharyngoesophageal dysphagia- Primary Dysphagia, pharyngoesophageal phase Pharyngoesophageal dysphagia Dysphagia, pharyngoesophageal phase Left leg cellulitis Cellulitis and abscess of leg, except foot Hematemesis with nausea Dizziness Dizziness and giddiness Weakness Other malaise and fatigue Left leg cellulitis Cellulitis and abscess of leg, except foot Hematemesis Tobacco abuse Tobacco use disorder Sciatica of left side Sciatica Weight loss Loss of weight Dizziness Dizziness and giddiness Sandra-Banegas tear Gastroesophageal laceration-hemorrhage syndrome Duodenitis without hemorrhage Duodenitis without mention of hemorrhage documented in this encounter Administered Medications Inactive Administered Medications - up to 3 most recent administrations Medication Order MAR Action Action Date Dose Rate Site acetaminophen (TYLENOL) tablet 650 mg 650 mg, Oral, EVERY 6 HOURS PRN, Starting on 07/19/15 at 1552, Until Tu07/20/15 at 1750, Pain, Temperature, Temperature greater than 100.3 or general pain, pain of headache, or pain with score less than 4, Routine Given 07/19/2015 6:29 PM CDT 650 mg ceFAZolin (ANCEF) IVPB 1,000 mg 1,000 mg, IV, EVERY 8 HOURS, First dose on Sun07/19/15 at 1300, Until Discontinued, Routine, Antibiotic Indication: Wound / Cellulitis / Abscess New Bag 07/20/2015 12:29 PM CDT 1,000 mg New Bag 07/20/2015 4:02 AM CDT 1,000 mg New Bag 07/19/2015 8:11 PM CDT 1,000 mg HYDROcodone-acetaminophen (HYCET) 7.5-325 mg/15 mL oral solution 15 mL 15 mL (7.5 mg), Oral, ONE TIME ONLY, 1 dose, On Sun07/19/15 at 1045, Routine Given 07/19/2015 10:51 AM CDT 15 mL HYDROcodone-acetaminophen (NORCO) 7.5-325 mg per tablet 1 Tablet 1 Tablet, Oral, EVERY 4 HOURS PRN, Starting on Sun07/19/15 at 1552, Until Sun07/20/15 at 1750, Pain, Severe, Routine Given 07/20/2015 5:49 AM CDT 1 Tab let Given 07/20/2015 1:07 AM CDT 1 Tablet Given 07/19/2015 8:11 PM CDT 1 Tablet lactated ringers solution IV, at 150 mL/hr, CONTINUOUS, Starting on Sun07/19/15 at 1415, Until Sun07/20/15 at 1750, Routine New 07/19/2015 2:12 PM CDT 150 mL/hr lidocaine (LIDODERM) 5 % topical patch 1 Patch 1 Patch, Topical, DAILY, First dose on Sun07/20/15 at 0900, Until Discontinued, Routine Applied 07/20/2015 8:04 AM CDT 1 Patch Hip, Left ondansetron (ZOFRAN) 4 mg/2 mL injection 4 mg 4 mg, IV, ONE TIME ONLY, 1 dose, On Sun07/19/15 at 0830, Routine Given 07/19/2015 8:43 AM CDT 4 mg ondansetron (ZOFRAN) 4 mg/2 mL injection 4 mg 4 mg, IV, EVERY 6 HOURS PRN, Starting on Sun07/19/15 at 1552, Until Sun07/20/15 at 1750, Nausea/Emesis, Routine Given 07/20/2015 8:02 AM CDT 4 mg Given 07/19/2015 8:45 PM CDT 4 mg pantoprazole (PROTONIX) injection 40 mg 40 mg, IV, ONE TIME ONLY, 1 dose, On Sun07/19/15 at 0830, Routine Given 07/19/2015 8:43 AM CDT 40 mg pantoprazole (PROTONIX) injection 40 mg 40 mg, IV, EVERY 12 HOURS (BlD), First dose on Sun07/19/15 at 1615, Until Discontinued, Routine Given 07/20/2015 4:02 AM CDT 40 mg Given 07/19/2015 6:25 PM CDT 40 mg sennosides-docusate sodium (SENNA-S) 8.6-50 mg per tablet 1 Tablet 1 Tablet, Oral, TWO TIMES DAILY, First dose on Sun07/19/15 at 2100, Until Discontinued, Routine Given 07/19/2015 8:11 PM CDT 1 Tablet sodium chloride 0.9% bolus solution 500 mL 500 mL, IV, ONE TIME ONLY, 1 dose, On Sun07/19/15 at 0830, at 500 mL/hr, Administer over 60 Minutes, Routine New Bag 07/19/2015 8:43 AM CDT 500 mL 500 mL/hr sodium chloride 0.9% infusion IV, at 150 mL/hr, CONTINUOUS, Starting on Sun07/19/15 at 1130, Until Sun07/19/15 at 1553, Routine New Bag 07/19/2015 11:39 AM CDT 150 mL/hr sodium chloride 0.9% infusion IV, at 75 mL/hr, CONTINUOUS, Starting on Sun07/19/15 at 1600, Until Sun07/20/15 at 1750, Routine New Bag 07/19/2015 4:24 PM CDT 75 mL/hr documented in this encounter Active and Recently Administered Medications Times are shown in CDT. Scheduled Medication Order 07/18/2015 07/19/2015 07/20/2015 ceFAZolin (ANCEF) IVPB 1,000 mg (CANCELED) 1,000 mg, IV, EVERY 8 HOURS, First dose on Sun07/19/15 at 1300, Until Discontinued, Routine, Antibiotic Indication: Wound / Cellulitis / Abscess 1138 (New Bag - Provider: Christine Richter RN)1242 (Stopped - Provider: Christine Richter RN)1300 (Not Given - Provider: Olga Trejo RN - Reason: Medication already given)2010 (New Bag - Provider: Lolis Mcfadden RN)2040 (Stopped - Provider: Lolis Mcfadden RN) 040 (New Bag - Provider: Lolis Mcfadden RN)0432 (Stopped - Provider: Lolis Mcfadden, RN)1229 (New Bag - Provider: Carey Garcia RN)1259 (Stopped - Provider: Carey Garcia RN) HYDROcodone-acetaminophen (HYCET) 7.5-325 mg/15 mL oral solution 15 mL (COMPLETED) 15 mL (7.5 mg), Oral, ONE TIME ONLY, 1 dose, On Sun07/19/15 at 1045, Routine 1051 (Given - Provider: Christine Richter RN) lidocaine (LIDODERM) 5 % topical patch 1 Patch (CANCELED) 1 Patch, Topical, DAILY, First dose on Sun07/20/15 at 0900, Until Discontinued, Routine 0804 (Applied - Provider: Carey Garcia RN)2003 (Due: Removed - Provider: Carey Garcia RN) ondansetron (ZOFRAN) 4 mg/2 mL injection 4 mg (COMPLETED) 4 mg, IV, ONE TIME ONLY, 1 dose, On Sun07/19/15 at 0830, Routine 0843 (Given - Provider: Christine Richter RN) pantoprazole (PROTONIX) injection 40 mg (COMPLETED) 40 mg, IV, ONE TIME ONLY, 1 dose, On Sun07/19/15 at 0830, Routine 0843 (Given - Provider: Christine Richter, СВЕТЛАНА) pantoprazole (PROTONIX) injection 40 mg (CANCELED) 40 mg, IV, EVERY 12 HOURS (BlD), First dose on Sun07/19/15 at 1615, Until Discontinued, Routine 1825 (Given - Provider: Olga Trejo RN) 040 (Given - Provider: Lolis Mcfadden RN) sennosides-docusate sodium (SENNA-S) 8.6-50 mg per tablet 1 Tablet (CANCELED) 1 Tablet, Oral, TWO TIMES DAILY, First dose on Sun07/19/15 at 2100, Until Discontinued, Routine 2010 (Given - Provider: Lolis Mcfadden, СВЕТЛАНА) 0900 (Refused - Provider: Carey Garcia RN) sodium chloride 0.9% bolus solution 500 mL (COMPLETED) 500 mL, IV, ONE TIME ONLY, 1 dose, On Sun07/19/15 at 0830, at 500 mL/hr, Administer over 60 Minutes, Routine 0843 (New Bag - Provider: Christine Richter RN)0943 (Stopped - Provider: Christine Richter RN) Continuous Medication Order 07/18/2015 07/19/2015 07/20/2015 lactated ringers solution (CANCELED) IV, at 150 mL/hr, CONTINUOUS, Starting on Sun07/19/15 at 1415, Until Sun07/20/15 at 1750, Routine 1412 (New Bag - Provider: Norah Huang RN)1445 (Fluid Volume - Provider: Shana Clarke CRNA)1542 (Stopped - Provider: Martha Ventura RN) sodium chloride 0.9% infusion (CANCELED) IV, at 150 mL/hr, CONTINUOUS, Starting on Sun07/19/15 at 1130, Until Sun07/19/15 at 1553, Routine 1139 (New Bag - Provider: Christine Richter RN) sodium chloride 0.9% infusion (CANCELED) IV, at 75 mL/hr, CONTINUOUS, Starting on Sun07/19/15 at 1600, Until Sun07/20/15 at 1750, Routine 1624 (New Bag - Provider: Gina Trejo RN) PRN Medication Order 07/18/2015 07/19/2015 07/20/2015 acetaminophen (TYLENOL) tablet 650 mg 650 mg, Oral, EVERY 6 HOURS PRN, Starting on Sun07/19/15 at 1552, Until Sun07/20/15 at 1750, Pain, Temperature, Temperature greater than 100.3 or general pain, pain of headache, or pain with score less than 4, Routine 1829 (Given - Provider: Olga Trejo RN - Comment: next norco after 0830 pm) HYDROcodone-acetaminophen (NORCO) 7.5-325 mg per tablet 1 Tablet (CANCELED) 1 Tablet, Oral, EVERY 4 HOURS PRN, Starting on Sun07/19/15 at 1552, Until Sun07/20/15 at 1750, Pain, Severe, Routine 1631 (Given - Provider: Olga Trejo RN)2010 (Given - Provider: Lolis Mcfadden RN) 0107 (Given - Provider: Lolis Mcfadden RN)0549 (Given - Provider: Lolis Mcfadden RN) ondansetron (ZOFRAN) 4 mg/2 mL injection 4 mg (CANCELED) 4 mg, IV, EVERY 6 HOURS PRN, Starting on Sun07/19/15 at 1552, Until Sun07/20/15 at 1750, Nausea/Emesis, Routine 2044 (Given - Provider: Lolis Mcfadden RN) 0802 (Given - Provider: Carey Garcia RN) documented in this encounter
--- OUTSIDE RECORDS SUMMARY | 2024-04-30 19:35 | XMS_ITS | Encounter Summary ---
Author Organization [facility] Address [address] [place] [address] Care Team Providers Care Money Position Officer Name Role Phone Unavailable Primary Care [...] Referred To Contact Multi Specialty Procedures ESOPHAGOGASTRODUODENOSCOPY [facility] Medicine [address] [place] [address] Phone: tel: fax: Referral ID Status Reason Start Date Expiration Date Visits Re quested Visits Authorized [id number] 07/20/2015 08/19/2016 1 Encounter Details Date Type Department Care Team (Latest Contact Info) Description 07/19/2015 2:00 PM CDT - 07/19/2015 2:40 PM CDT Surgery [facility] GI Lab S [facility] [address] [place] [address] Johnson Yates MD [address] [facility] [id number] [place] [address] ESOPHAGOGASTRODUODENOSCOPY Surgery Details Date/Time Status Location OR Service Patient Class Case Class Case Type Trauma Case? 07/19/2015 2:00 PM Posted [facility] GI LAB GI 09 Gastroenterology Inpatient Urgent N o Panel 1 Procedure LRB Anes Op Region Wound Class Comments ESOPHAGOGASTRODUODENOSCOPY N/A General Mouth Shaquille an Contaminated-II Surgeon Surgeon Role Service Panel Johnson Yates MD Primary Gastroenterology 1 documented in this encounter Social History Tobacco Use Types Packs/Day Years [...] Sign Reading Time Taken Comments Blood Pressure 148/71 07/19/2015 2:10 PM CDT Pulse 88 07/19/2015 2:10 PM CDT Temperature 36.7 ??C (98.1 ??F) 07/19/2015 2:10 PM CD T Respiratory Rate 18 07/19/2015 2:10 PM CDT Oxygen Saturation 92% 07/19/2015 2:10 PM CDT Inhaled Oxygen Concentration - - Weight 54.4 kg (120 lb) 07/19/2015 8:08 AM CDT Height 162.6 cm (5' 4 ) 07/19/2015 8:08 AM CDT Body Mass Index 21.87 07/19/2015 3:50 PM CDT documented in this encounter Discharge Summaries * Gabino Wong MD - 07/20/2015 2:54 PM CDT [facility] Adult Hospitalist Discharge Summary Patient Name Valeria Lake Age 80 y.o. Gender female Date of 1935 [facility] [id number] Discharging Physician Gabino Wong MD PCP No [...] 80 y.o. female who was admitted to [facility] on 07/19/2015 for evaluation of hematemesis. She [...] bruising now than erythema. Procedures performed: 07/18 151 GI REPORT Procedure(s) (LRB): ESOPHAGOGASTRODUODENOSCOPY (N/A) Disposition: [...] are the prescriptions that you need to belt picker. Please take the prescriptions given to you [...] Wong MD and may be reached at [phone] for any questions or concerns until you [...] diarrhea, severe nausea and vomiting Smoking Exposure: [facility] encourages all patients to decrease risks associated with smoking and second hand smoke exposure. If you smoke you are advised to quit. Ask your health care provider for advice if you need assistance to stop smoking. Avoid second-hand smoke exposure and do not let people smoke in your home. Please call [phone], our pulmonary rehabilitation department, to learn more [...] pain intervention: Appeared content Living Situation/Functional Level CONSTRUCTION MATERIALS TESTER: Pt lives alone in apartment with 13 [...] section of the medical chart. Zone #: [id number] * Johnson Yates MD - 07/20/2015 9:00 AM CDT INPATIENT PROGRESS NOTE Valeria Lake 1935 07/20/2015 9:00 AM Chief Complaint: [...] standpoint. Please call withquestions. Johnson Yates MD [facility] Digestive Diseases Pager: [phone] * Johnson Yates MD - 07/19/2015 1:09 PM CDT Inpatient Gastroenterology Consultation Note Patient: Valeria Lake / 80 y.o. / female : 1935 Date: 07/19/2015 CSN: [id number] Referring Physician:Monica Smith MD PCP: No primary [...] situation and coordinating care. Mara Eden PA-C [facility] Digestive Diseases GI Attending Note I have [...] Taveras MD - 07/19/2015 12:27 PM CDT [facility] Name: Valeria Lake Copy to [...] 3 but not more than 10 minutes ([id number]) on counseling on smoking/tobacco cessation independent of [...] Plan; change Protonix to bid, start CLD, [place] prn instead IV Morphine prn for pain ??? DVT Prophlaxis: Heparin ??? Current Planned Disposition: home with HH ??? Plan discussed with patient; questions answered; patient agrees with current plan. ??? Current Code Status: Full Vita Taveras MD [facility] [phone] documented in this encounter Procedure Notes * Johnson Yates MD - 07/19/2015 3:14 PM CDTAssociated Order(s): GI REPORT [facility] Endoscopy Patient Name: Valeria Lake Procedure Date [...] electronically. Number of Addenda: [address]; [place] [address] documented in this encounter Consult Notes * [...] 9 ml of sterile normal saline at [facility] Dr. Yates's instruction. documented in this encounter [...] this time. History provided by: The patient spanish interpreter used: No Arrived by: Private vehicle Arrived [...] for her pain yesterday. Will try liquid [place]. 11:05 AM: Family concerned for her falling [...] CASE DISCUSSED 11:25 AM: [facility] patient's lab results, physical exam findings, and [...] Goal (Adult, Obstetrics) The patient and/or their insurance service representative will achieve their patient-specific goals related to the plan of care. The patient-specific goals include: pain lle controlled, no gi bleeding Before discharge Outcome: Progressing Goal: Identify Discharge Needs Patients discharge needs are identified. Outcome: Progressing Problem: Cellulitis (Adult) Goal: Prevent/Manage Potential Problems Signs and symptoms of listed problems will be absent or manageable. Outcome: Progressing * Care Plan - Lolis Mcfadden RN - 07/20/2015 2:55 AM CDT [...] Review (Adult, Obstetrics) The patient and/or their insurance service representative will communicate an understanding of their [...] Assess performed by: Olga SOTOMAYOR and Carlos INCOME AUDITOR Admission or upon transfer to: room 650 [...] st Contact Info) Description 05/05/2024 11:15 AM SHOW HOST/HOSTESS Office Visit [facility] Oncology and Hematology - [place] [address] [facility] [address] [place] [address] Reymundo Lee MD [address] [place] [address] documented as of this encounter [...] INTERFACE SYSTEM - 07/20/2015 10:16 AM CDT [address] [place] [address] [email or web address] Patient: ?Valeria Lake MRN: ?[id number] Study ID: ? [id number] Gender: ? F : ?1935 Age: ?80 Race: ? CAU Height ?162.6cm Study Date: ? 07/20/2015 Weight: ? 57.6kg Access. #: ?[id number] BP: *Referring Physician:* Vita Taveras *Ordering Physician:* ??Vita Taveras Scraper Burrer: Indications: Dizziness STUDY CONCLUSIONS: SUMMARY: - Left [...] ?Prepared and Electronically Authenticated Shen Ribeiro M.D. [id number] Procedure Note Shen Ribeiro MD - 07/20/2015 [place] [address] [email or web address] Echocardiography Patient: Valeria Lake Study ID: [id number] Gender: F : 1935 Age: 80 Race: CAU Height 162.6cm Study Date: 07/20/2015 Weight: 57.6kg Access. #: [id number] BP: *Referring Physician:* Vita Taveras *Ordering Physician:Vita Cintron Scraper Burrer: Indications: Dizziness STUDY CONCLUSIONS: SUMMARY: - Left [...] Prepared and Electronically Authenticated Shen Ribeiro M.D. [id number] us Vita Taveras MD ORDERABLES Final Result Performing Organization Address City/State/[facility] Co de Phone Number INTERFACE SYSTEM Refer to clinic/hospital department * (ABNORMAL) BASIC METABOLIC PANEL (07/20/2015 5:53 AM CDT) SODIUM 138 136 - 145 mmol/L 07/20/2015 7:09 AM CDT [facility] SERVICES - [facility] POTASSIUM 4.1 3.5 - 5.0 mmol/L 07/20/2015 7:09 AM CDT [facility] CHLORIDE 104 98 - 107 mmol/L 07/20/2015 7:09 AM CDT [facility] CO2 25 22 - 29 mmol/L 07/20/2015 7:09 AM CDT [facility] LABORATORY SERVICES - . [facility] CALCIUM 8.2(L) 8.6 - 10.2 mg/dL 07/20/2015 7:09 AM [facility] LABORATORY [facility] BUN 10 8 - 23 mg/dL 07/20/2015 7:09 AM [facility] LABORATORY [facility] CREATININE 0.82 0.51 - 0.95 mg/dL 07/20/2015 7:09 AM [facility] LABORATORY [facility] Comment: The GFR result is not clinically significant on patients <18 or >70 years of age. GLUCOSE 80 79 - 99 mg/dL 07/20/2015 7:09 AM [facility] LABORATORY [facility] GFR >60 mL/min/1.7 3 sq meter 07/20/2015 7:09 AM [facility] shoutr [facility] Comment: eGFR has not been validated for [...] 3 sq meter 07/20/2015 7:09 AM T [facility] LABORATORY [facility] ANION GAP 9 8 - 16 mmol/L 07/20/2015 7:09 AM [facility] shoutr [facility] Blood Venipuncture - L ab Collect / Unknown 07/20/2015 5:53 AM CDT 07/20/2015 6:28 AM CDT us Vita Taveras MD CHEMISTRY ORDERABLES Final Re sult [facility] [id number] [address] [facility] [place] [address] * (ABNORMAL) CBC WITH DIFFERENTIAL (07/20/2015 5:33 AM CDT) WBC 7.7 4.0 - 9.8 K/uL 07/20/2015 7:17 AM CDT [facility]ORY SERVICES - [facility] RBC 3.98 3.90 - 4.90 M/uL 07/20/2015 7:17 AM CDT [facility]ORY SERVICES - [facility] HEMOGLOBIN 12.0 11.8 - 14.8 g/dL 07/20/2015 7:17 AM CDT [facility]ATORY SERVICES - [facility] HEMATOCRIT 37.2 35.5 - 44.0 % 07/20/2015 7:17 AM CDT [facility] - [facility] MCV 93.5 82.0 - 99.0 fL 07/20/2015 7:17 AM CDT [facility] SERVICES - [facility] MCH 30.2 27.2 - 32.6 pg 07/20/2015 7:17 AM CDT [facility] SERVICES - [facility] MCHC 32.3 31.5 - 35.5 g/dL 07/20/2015 7:17 AM CDT [facility] SERVICES - [facility] RDW 14.7(H) 11.5 - 14.5 % 07/20/2015 7:17 AM CDT [facility] SERVICES - [facility] RDW-STDEV 50.6(H) 37.1 - 48.7 fL 07/20/2015 7:17 AM CDT [facility] - [facility] PLATELETS 222 140 - 350 K/uL 07/20/2015 7:17 AM CDT [facility] - [facility] MPV 9.4 9.3 - 12.4 fL 07/20/2015 7:17 AM CDT [facility] NEUTROPHILS 60 45 - 70 % 07/20/2015 7:17 AM CDT [facility] LYMPHOCYTES 27 16 - 45 % 07/20/2015 7:17 AM CDT [facility] MONOCYTES 12 3 - 13 % 07/20/2015 7:17 AM CDT [facility] EOSINOPHILS 1 <=7 % 07/20/2015 7:17 AM CDT [facility] - [facility] BASOPHILS 0 <=3 % 07/20/2015 7:17 AM CDT [facility] LABORATORY SERVICES - . [facility] NEUTROPHIL ABSOLUTE 4.57 1.90 - 7.00 K/uL 07/20/2015 7:17 AM CDT [facility] LABORATORY SERVICES [facility] LYMPHOCYTE ABSOLUTE 2.04 0.70 - 4.50 K/uL 07/20/2015 7:17 AM CDT [facility] LABORATORY SERVICES [facility] MONOCYTE ABSOLUTE 0.93 0.10 - 1.30 K/uL 07/20/2015 7:17 AM CDT [facility] LABORATORY SERVICES [facility] EOSINOPHIL ABSOLUTE 0.11 <0.70 K/uL 07/20/2015 7:17 AM CDT [facility] LAB[facility]ATORY SERVICES [facility] BASOPHILS ABSOLUTE 0.01 <=0.20 K/uL 07/20/2015 7:17 AM CDT [facility] LAB[facility]ATORY SERVICES [facility] IMMATURE GRANULOCYTES 0 <=0 % 07/20/2015 7:17 AM CDT [facility] LABORATORY SERVICES [facility] IMMATURE GRANULOCYTES ABSOLUTE 0.03 0.00 - 0.03 K/uL 07/20/2015 7:17 AM CDT [facility] LAB[facility]ATORY SERVICES [facility] Blood Venipuncture - L ab Collect / Unknown 07/20/2015 5:33 AM CDT 07/20/2015 6:30 AM CDT Vita Taveras MD HEMATOLOGY ORDERABLES Final R esult [facility] shoutr [facility]# [id number] [address] [facility] [place] [address] * HEMOGLOBIN AND HEMATOCRIT (07/20/2015 12:40 AM CDT) [facility] HEMOGLOBIN 12.5 11.8 - 14.8 g/dL 07/20/2015 1:05 AM CDT [facility] shoutr SERVICES [facility]. [facility] HEMATOCRIT 38.8 35.5 - 44.0 % 07/20/2015 1:05 AM CDT [facility] SERVICES - . [facility] Blood Venipuncture - L ab Collect / Unknown 07/20/2015 12:40 AM CDT 07/20/2015 12:53 AM CDT Vita Taveras MD HEMATOLOGY ORDERABLES Final R esult [facility]# [id number] [address] [place] [address] * HEMOGLOBIN AND HEMATOCRIT (07/19/2015 6:58 PM CDT) Pathologist [facility] HEMOGLOBIN 12.0 11.8 - 14.8 g/dL 07/19/2015 7:09 PM CDT [facility] LABORATORY [facility] HEMATOCRIT 36.8 35.5 - 44.0 % 07/19/2015 7:09 PM CDT [facility] LAB[facility]ATORY [facility] Blood Venipuncture - L ab Collect / Unknown 07/19/2015 6:58 PM CDT 07/19/2015 7:02 PM CDT us Vita Taveras MD HEMATOLOGY ORDERABLES Final R esult Performing Organization Address [facility] Co de Phone Number [facility]# [id number] [address] [place] [address] * T4 FREE (07/19/2015 5:05 PM CDT) [facility] T4 FREE 1.38 0.90 - 1.70 ng/dL 07/19/2015 6:51 PM CDT [facility] shoutr [facility] Blood Venipuncture - L ab Collect / Unknown 07/19/2015 5:05 PM CDT 07/19/2015 5:13 PM CDT us Vita Taveras MD CHEMISTRY ORDERABLES Final Re sult Performing Organization Address [facility] Co de Phone Number [facility] shoutr [facility]# [id number] [address] [place] [address] * (ABNORMAL) TSH REFLEXIVE (07/19/2015 5:05 PM CDT) [facility] TSH 6.01(H) 0.27 - 4.20 uIU/mL 07/19/2015 6:21 PM CDT [facility] Blood Venipuncture - L ab Collect / Unknown 07/19/2015 5:05 PM CDT 07/19/2015 5:13 PM CDT Vita Taveras MD CHEMISTRY ORDERABLES Final Re sult Performing Organization Address [facility] Number [facility]# [id number] [address] [place] [address] * VITAMIN B12 LEVEL (07/19/2015 5:05 PM CDT) Pathologist [facility] VITAMIN B12 444 211 - 946 pg/mL 07/19/2015 6:28 PM CDT [facility] Comment: It has been reported that [...] ORDERABLES Final Re sult Performing Organization Address [facility] de [facility][Note 2] Number [facility]# [id number] [facility] [place] [address] * MRSA PCR RAPID SCREEN (07/19/2015 4:10 PM CDT) Pathologist [facility] MRSA PCR RESULT MRSA not detected MRSA not detected 07/19/2015 6:00 PM CDT [facility] Other, specify ANTERIOR NARES SWAB / Unknown Collection / Unknown 07/19/2015 4:10 PM CDT 07/19/2015 4:22 PM CDT Narrative [facility] - 07/19/2015 6:00 PM CDT This assay is used to detect Methicillin-Resistant S. aureus (MRSA) colonization of the nares. PLEASE NOTE: ??This test has not been approved to monitor effectiveness of MRSA decolonization. Residual DNA may temporarily be present after successful decolonization. This test was performed using an FDA approved screening methodology. Vita Taveras MD MICROBIOLOGY - GENERAL ORDERA BLES Final Result [facility] LABORATORY SERVICES [facility]# [id number] [address] [place] [address] * GI REPORT (07/19/2015 3:16 PM CDT) Narrative Transcriptions Johnson Yates MD - 07/19/2015 3:14 PM CDT [facility] Endoscopy Patient Name: Valeria Lake Procedure Date [...] electronically. Number of Addenda: [address]; [place] [address] Johnson Yates MD GI PROCEDURE ORDERABLES Final R esult * (ABNORMAL) HELICOBACTER PYLORI RAPID UREASE TEST (07/19/2015 2:55 PM CDT) H. PYLORI RAPID UREASE TEST Positive(A ) Negative 07/20/2015 7:46 PM CDT [facility] Tissue ENTIRE STOMACH / Unknown Collection / Unknown 07/19/2015 2:55 PM CDT 07/19/2015 5:31 PM CDT Johnson Yates MD MICROBIOLOGY - GENERAL ORDERABL ES Final Result [facility]# [id number] [address] [place] [address] * PATHOLOGY (07/19/2015 2:55 PM CDT) CASE REPORT Surgical Pathology Report ? Case: [id number] ? Authorizing Provider: ??Johnson Yates MD ? Collected: ? 07/19/2015 02:55 PM ? Ordering Location: ? [facility] ?Received: ?07/19/2015 04:17 PM ? Emergency Department ? Pathologist: ? Omer Vieira MD ? Specimens: ?? A) - Small Intestine, duodenum bx ? B) - Stomach, gastic bx ? 07/21/2015 4:37 PM CDT [facility] FINAL DIAGNOSIS SMALL INTESTINE, DUODENUM, BIOPSY: - CHRONIC ACTIVE DUODENITIS. STOMACH, BIOPSY: - CHRONIC ACTIVE GASTRITIS (SEE DESCRIPTION). 07/21/2015 4:37 PM CDT [facility] IMEN DESCRIPTION (1) Small intestine, duodenal biopsy; (2) stomach, gastric biopsy. 07/21/2015 4:37 PM T [facility] OPERATIVE PROCEDURE EGD. 07/21/2015 4:37 PM T [facility] CLINICAL INFORMATION (1) Ulceration, rule out dysplasia/malignancy; (2) gastritis, rule out H.pylori. 07/21/2015 4:37 PM T [facility] GROSS DESCRIPTION The specimens are received [...] dimension. All are submitted in cassette B1. HUGH/corbin 07/21/2015 4:37 PM [facility] MICROSCOPIC DESCRIPTION The slides are labeled [id number]. The duodenal biopsy displays subtotal villous atrophy with a marked inflammatory infiltrate consisting of neutrophils and mononuclear cells. The features are most suggestive of a peptic duodenitis. The gastric biopsies display antral and fundic mucosa with chronic active gastritis. Organisms are identified with special stain for Helicobacter. 07/21/2015 4:37 PM [facility] COMMENT Special stain and/or immunohistochemical results are interpreted with controls that demonstrate appropriate staining reactions. Note on use of immunocytochemistry reagents: This test was developed and its performance characteristic determined by [facility], Department of Laboratory Medicine. It has not [...] WF, WB and WH are performed by [address], [address]. All other case types are performed by [address], [address]. 07/21/2015 4:37 PM [facility] Tissue (Small Intestine) 07/19/2015 2:55 PM CDT 07/19/2015 4:17 PM CDT Comment:Ulceration, R/o dysp lasia/malignancy Tissue specimen (specimen) ENTIRE STOMACH / Unknown 07/19/2015 2:55 PM CDT 07/19/2015 4:17 PM CDT Comment:Gastritis, r/o h.pyl joo Johnson Yates MD PATHOLOGY/CYTOLOGY ORDERABLES F inal Result [facility] LABORATORY SERVICES [facility]# [id number] [address] [place] [address] * XR CHEST PA AND LATERAL (07/19/2015 [...] ? Stationary ECG Study ? [facility] ? Test Date: ?07/19/2015 11:36 AM Pat Name: ? VALERIA PRASADRakesh ? Department: ?? 15 ?Room: ? 23 23 Gender: ? 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 conkrc : ?1935 ? Requested By: MONCIA YE Order Number: [id number] ?Blanca CARROLL: ?? Shen Ribeiro ? Measurements Intervals ?[place] ? Rate: ? 86 ? P: ?73 SC: ? 158 ?QRS: ?48 QRSD: ? 78 ? T: ?49 QT: ? 364 ? QTc: ?436 ? Interpretive Statements ? SINUS RHYTHM Electronically Signed On 07-19-2015 18:43:32 CDT by Shen Ribeiro Procedure Note Provider, Nahed / Shen Ribeiro MD - 06/21/2021 Stationary ECG Study [facility] Test Date: 07/19/2015 11:36 AM Pat Name: VALERIA LAKE Department: 15 Room: 23 23 Gender: F Pawn Shop Keeper: maria guadalupeclayton : 1935 Requested By: MONICA YE Order Number: [id number] Reading MD: Shen Ribeiro Measurements Intervals [place] Rate: 86 P: 73 SC: 158 QRS: 48 QRSD: 78 T: 49 QT: 364 QTc: 436 Interpretive Statements SINUS RHYTHM Electronically Signed On 07-19-2015 18:43:32 CDT by Shen Ribeiro us Monica Thorne MD ECG ORDERABLES Edited Resul t - Final INTERFACE SYSTEM Refer to clinic/hospital department * (ABNORMAL) COMPREHENSIVE METABOLIC PANEL (07/19/2015 8:40 AM CDT) SODIUM 140 136 - 145 mmol/L 07/19/2015 9:28 AM T [facility] SERVICES - [facility] POTASSIUM 4.0 3.5 - 5.0 mmol/L 07/19/2015 9:28 AM T [facility]ORY SERVICES - [facility] Comment: Moderate hemolysis present. ??Can cause significant falsely elevated result. ??Clinical judgement necessary. ??Redraw if indicated. CHLORIDE 100 98 - 107 mmol/L 07/19/2015 9:28 AM T [facility]ORY SERVICES - [facility] CO2 25 22 - 29 mmol/L 07/19/2015 9:28 AM T [facility]ORY SERVICES - [facility] CALCIUM 9.3 8.6 - 10.2 mg/dL 07/19/2015 9:28 AM T [facility] SERVICES - [facility] BUN 17 8 - 23 mg/dL 07/19/2015 9:28 AM T [facility] SERVICES - [facility] CREATININE 0.98(H) 0.51 - 0.95 mg/dL 07/19/2015 9:28 AM [employer] LABORATORY SERVICES [facility] Comment: The GFR result is not clinically significant on patients <18 or >70 years of age. GLUCOSE 101(H) 79 - 99 mg/dL 07/19/2015 9:28 AM [facility] LABORATORY SERVICES [facility] TOTAL PROTEIN 7.0 6.7 - 8.6 g/dL 07/19/2015 9:28 AM [facility] LABORATORY SERVICES - [facility] ALBUMIN 4.0 3.5 - 5.2 g/dL 07/19/2015 9:28 AM T [facility]ORY SERVICES - [facility] BILIRUBIN TOTAL 0.4 0.2 - 1.1 mg/dL 07/19/2015 9:28 AM [employer] LABORATORY SERVICES [facility] ALKALINE PHOSPHATASE 51 35 - 104 U/L 07/19/2015 9:28 AM T [facility] SERVICES - [facility] AST 20 <33 U/L 07/19/2015 9:28 AM [employer] LABORATORY SERVICES [facility] Comment: Hemolysis present. Result may be falsely elevated. ALT 16 <34 U/L 07/19/2015 9:28 AM T [facility] SERVICES - [facility] Comment: Hemolysis present. Result may be falsely elevated. GFR 55 mL/min/1.7 3 sq meter 07/19/2015 9:28 AM CDT [facility] SERVICES - [facility] Comment: eGFR has not been validated for [...] mL/min/1.7 3 sq meter 07/19/2015 9:28 AM T [facility] ANION GAP 15 8 - 16 mmol/L 07/19/2015 9:28 AM T [facility] SERVICES - [facility] Blood Collection / Unknown 07/19/2015 8:40 AM CDT 07/19/2015 8:48 AM CDT us Monica Thorne MD CHEMISTRY ORDERABLES Final R esult [facility]# [id number] [address] [facility] [place] [address] * (ABNORMAL) CBC WITH DIFFERENTIAL (07/19/2015 8:40 AM CDT) WBC 13.6(H) 4.0 - 9.8 K/uL 07/19/2015 8:55 AM CDT [facility] SERVICES [facility] RBC 4.53 3.90 - 4.90 M/uL 07/19/2015 8:55 AM T [facility] HEMOGLOBIN 13.6 11.8 - 14.8 g/dL 07/19/2015 8:55 AM CDT [facility] SERVICES - [facility] HEMATOCRIT 40.8 35.5 - 44.0 % 07/19/2015 8:55 AM CDT [facility] LABORATORY SERVICES - [facility] MCV 90.1 82.0 - 99.0 fL 07/19/2015 8:55 AM CDT [facility] MCH 30.0 27.2 - 32.6 pg 07/19/2015 8:55 AM CDT [facility] MCHC 33.3 31.5 - 35.5 g/dL 07/19/2015 8:55 AM CDT [facility] RDW 14.6(H) 11.5 - 14.5 % 07/19/2015 8:55 AM CDT [facility] RDW-STDEV 47.9 37.1 - 48.7 fL 07/19/2015 8:55 AM CDT [facility] PLATELETS 255 140 - 350 K/uL 07/19/2015 8:55 AM CDT [facility] MPV 9.1(L) 9.3 - 12.4 fL 07/19/2015 8:55 AM CDT [facility] NEUTROPHILS 76(H) 45 - 70 % 07/19/2015 8:55 AM CDT [facility] LYMPHOCYTES 15(L) 16 - 45 % 07/19/2015 8:55 AM CDT [facility] MONOCYTES 9 3 - 13 % 07/19/2015 8:55 AM CDT [facility] EOSINOPHILS 0 <=7 % 07/19/2015 8:55 AM CDT [facility] BASOPHILS 0 <=3 % 07/19/2015 8:55 AM CDT [facility] NEUTROPHIL ABSOLUTE 10.32(H) 1.90 - 7.00 K/uL 07/19/2015 8:55 AM CDT [facility] LYMPHOCYTE ABSOLUTE 1.98 0.70 - 4.50 K/uL 07/19/2015 8:55 AM CDT [facility] MONOCYTE ABSOLUTE 1.15 0.10 - 1.30 K/uL 07/19/2015 8:55 AM CDT [facility] EOSINOPHIL ABSOLUTE 0.05 <0.70 K/uL 07/19/2015 8:55 AM CDT [facility] BASOPHILS ABSOLUTE 0.02 <=0.20 K/uL 07/19/2015 8:55 AM CDT [facility] IMMATURE GRANULOCYTES 1(H) <=0 % 07/19/2015 8:55 AM CDT [facility] Comment:IG (Immature Granulo cyte) count includes Metamyelocytes, Myelocytes, and Promyelocytes IMMATURE GRANULOCYTES ABSOLUTE 0.08(H) 0.00 - 0.03 K/uL 07/19/2015 8:55 AM CDT [facility] Blood Collection / Unknown 07/19/2015 8:40 AM CDT 07/19/2015 8:48 AM CDT us Monica Thorne MD HEMATOLOGY ORDERABLES Final Result [facility]# [id number] 5 SNyasia CRUZ [facility] [place] [address] documented in this encounter Visit Diagnoses Not on filedocumented in this encounter Active and Recently Administered Medications Times are shown in CDT. Scheduled Medication Order 07/18/2015 07/19/2015 07/20/2015 ceFAZolin (ANCEF) IVPB 1,000 mg (CANCELED) 1,000 mg, IV, EVERY 8 HOURS, First dose on Sun07/19/15 at 1300, Until Discontinued, Routine, Antibiotic Indication: Wound / Cellulitis / Abscess 1138 (New Bag - Provider: Christine Richetr RN)1242 (Stopped - Provider: Christine Richter RN)1300 (Not Given - Provider: Olga Trejo RN - Reason: Medication already given)2010 (New Bag - Provider: Lolis Mcfadden RN)2040 (Stopped - Provider: Lolis Mcfadden RN) 040 (New Bag - Provider: Lolis Mcfadden RN)0432 (Stopped - Provider: Lolis Mcfadden RN)1229 (New Bag - Provider: Carey Garcia RN)1259 (Stopped - Provider: Carey Garcia RN) HYDROcodone-acetaminophen (HYCET) 7.5-325 mg/15 mL oral solution 15 mL (COMPLETED) 15 mL (7.5 mg), Oral, ONE TIME ONLY, 1 dose, On Sun07/19/15 at 1045, Routine 1051 (Given - Provider: Christine Richter, СВЕТЛАНА) lidocaine (LIDODERM) 5 % topical patch 1 Patch (CANCELED) 1 Patch, Topical, DAILY, First dose on Sun07/20/15 at 0900, Until Discontinued, Routine 0804 (Applied - Provider: Carey Garcia, СВЕТЛАНА)2003 (Due: Removed - Provider: Carey Garcia RN) ondansetron (ZOFRAN) 4 mg/2 mL injection 4 mg (COMPLETED) 4 mg, IV, ONE TIME ONLY, 1 dose, On Sun07/19/15 at 0830, Routine 0843 (Given - Provider: Christine Richter, СВЕТЛАНА) pantoprazole (PROTONIX) injection 40 mg (COMPLETED) 40 mg, IV, ONE TIME ONLY, 1 dose, On Sun07/19/15 at 0830, Routine 0843 (Given - Provider: Christine Richter, СВЕТЛАНА) pantoprazole (PROTONIX) injection 40 mg (CANCELED) 40 mg, IV, EVERY 12 HOURS (BlD), First dose on Sun07/19/15 at 1615, Until Discontinued, Routine 1825 (Given - Provider: Olga Trejo RN) 0402 (Given - Provider: Lolis Mcfadden RN) sennosides-docusate [...] Routine 0843 (New Bag - Provider: Christine Richter, СВЕТЛАНА)0943 (Stopped - Provider: Christine Richter RN) Continuous [...] Provider: Lolis Mcfadden RN)0549 (Given - Provider: Rukija Muharemovic, RN) ondansetron (ZOFRAN) 4 mg/2 mL injection 4 mg (CANCELED) 4 mg, IV, EVERY 6 HOURS PRN, Starting on Sun07/19/15 at 1552, Until Sun07/20/15 at 1750, Nausea/Emesis, Routine 2044 (Given - Provider: Lolis Mcfadden RN) 0802 (Given - Provider: Carey Garcia RN) documented in this encounter
--- OUTSIDE RECORDS SUMMARY | 2024-04-30 19:35 | XMS_ITS | Encounter Summary ---
Author Organization [facility] Address [address] [place] [address] Care Team Providers Care Business Services Sales Agent Name Role Phone Unavailable Primary Care Provider Unavailabl e Reason for Visit * Reason Comments Leg Pain Pt arrives with c/o left leg pain that began 1.5 weeks ago and has increasingly became worse. Pt is ambulatory without difficulty. +PMS. No redness, swelling or warmth or touch. Pt has been seen at yesterday dx with arthritis. Given Naproxen for pain and has not had releif. Pt's daughter told her it could be cardiac related. * Auth/Cert Specialty Diagnoses / Procedures Referred By Kady jenkins Referred To Contact Emergency Medicine [facility] Emergency Department [address] [place] [address] Phone: tel: fax: Referral ID Status Reason Start Date Expiration Date Visits Re quested Visits Authorized [id number] 1 1 Encounter Details Date Type Department Care Team (Late st Contact Info) Description 07/11/2015 8:00 PM CDT - 07/11/2015 11:05 PM CDT Emergency [facility] Emergency Department [address] [place] [address] Omer Garg MD [address] [facility] [place] [address] Left-sided low back pain without sciatica (Primary Dx) Discharge Disposition: Home or Self Care Social History Tobacco Use Types Packs/Day Years Used Date Smoking Tobacco: Every Day Cigarettes 1 65 Smokeless Tobacco: Never Tobacco Cessation:Ready to Q uit: No Alcohol Use Standard Drinks/Week Comments No 0 [...] Sign Reading Time Taken Comments Blood Pressure 145/77 07/11/2015 10:30 PM CDT Pulse 95 07/11/2015 10:30 PM CDT Temperature 36.7 ??C (98 ??F) 07/11/2015 6:08 PM CDT Respiratory Rate 18 07/11/2015 10:30 PM CDT Oxygen Saturation 95% 07/11/2015 10:30 PM CDT Inhaled Oxygen Concentration - - Weight 54 kg (119 lb) 07/11/2015 6:08 PM CDT Height 162.6 cm (5' 4 ) 07/11/2015 6:08 PM CDT Body Mass Index 20.43 07/11/2015 6:08 PM CDT documented in this encounter Discharge Instructions * Discharge Instructions* Omer Garg MD - 07/11/2015 10:51 PM CDT Return for any fevers, chest pain, shortness or breath, worsening pain or symptoms, or any new concerns. Return for any fevers, weakness of your legs or loss of feeling in your legs, or if you have trouble controlling your bladder or bowels. Follow up with the referral line or your regular doctor documented in this encounter Medications at Time of Discharge multivitamin (DAILY-CINTHYA) tablet Take 1 Tablet by mouth daily. naproxen sodium (ANAPROX DS) 550 mg tablet Take 550 mg by mouth 2 times daily with meals. 07/20/2015 predniSONE (DELTASONE) 20 mg tablet Take 2 Tablet (40 mg) by mouth daily Take two pills by mouth daily until all are gone.. 10 Tablet None 07/11/2015 07/19/2015 HYDROcodone-aceta minophen (NORCO) 5-325 mg tablet Take 1 Tablet by mouth every 4 hours as needed for Pain, Moderate. Max Daily Amount: 6 Tablet 15 Tablet 0 07/11/2015 07/20/2015 documented as of this encounter ED Notes * Cristina Mcfadden RN - 07/11/2015 11:04 PM CDT Pt discharged to home with family member via wheelchair. Discharge instructions and new prescriptions reviewed, verbalizes understanding. Questions answered, no further questions or concerns. * Cristina Mcfadden RN - 07/11/2015 10:46 PM CDT MD at bedside for update. * Cristina Mcfadden RN - 07/11/2015 10:31 PM CDT Pt states pain is improved with med administration. Updated on POC. Awaiting disposition. Will continue to monitor. * Cristina Mcfadden RN - 07/11/2015 10:11 PM CDT Pt returned from XR. Resting comfortably on stretcher. Will continue to monitor. * Cristina Mcfadden RN - 07/11/2015 9:52 PM CDT Pt still complaining of pain. MD aware, new orders received. Prednisone and Vicodin administered. Patient/family has been informed about benefits and any potential clinically significant side effectsor other concerns regarding the administration of the drug they have just been given. Pt to XR at this time. Updated on POC. Will continue to monitor. * Cristina Mcfadden RN - 07/11/2015 9:15 PM CDT Toradol and Tramadol administered. Patient/family has been informed about benefits and any potential clinically significant side effects or other concerns regarding the administration of the drug they have just been given. Updated on POC. Will continue to monitor. * Cristina Mcfadden RN - 07/11/2015 8:34 PM CDT MD at bedside for US of left leg. * Cristina Mcfadden RN - 07/11/2015 8:32 PM CDT Pt to ED 28 with complaints of left leg pain that began approximately 10 days ago and has been worsening since. Also complaining of lower back pain on the left side. Seen at and told it was arthritis. Unable to sleep d/t pain. Taking medication at home without relief. MD at bedside for eval. Alert and oriented, resps even and unlabored, skin PWD, TORREZ. Placed on NIBP and SpO2. Call light withinreach. Will continue to monitor. * Omer Garg MD - 07/11/2015 8:08 PM CDT HISTORY OF PRESENT ILLNESS Valeria Deutsch, a 80 y.o. female presents to the ED with a Chief Complaint of Leg Pain Subjective HPI Comments: 8:08 PM: Valeria Deutsch is a 80 y.o. female who presents to the Emergency Department with complaints of L lower back pain, which radiates down her L leg, for the past 1.5 weeks. Pt states the pain worsens at night and that she has slept less than normal secondary to pain. Denies anynumbness or tingling. Pt took 2 Anaprox 550 mg tablets this morning with no relief of pain. History provided by: The patient Arrived by: Private vehicle Arrived from: Home Back Pain Pain location: Left lower back. Radiates to: L leg. Pain is: Worse during the night Onset quality: Unable to specify Duration: 10 days Chronicity: New Associated symptoms: no abdominal pain, no dysuria, no fever and no weakness REVIEW OF SYSTEMS Review of Systems Constitutional: Negative for fever and diaphoresis. HENT: Negative for facial swelling and nosebleeds. Eyes: Negative for pain and discharge. Respiratory: Negative for cough, choking and wheezing. Cardiovascular: Negative for leg swelling. Gastrointestinal: Negative for nausea, abdominal pain and diarrhea. Genitourinary: Negative for dysuria, decreased urine volume and difficulty urinating. Musculoskeletal: Positive for back pain (L lower back pain radiating down L leg). Negative for gaitproblem and neck stiffness. Skin: Negative for pallor and rash. Neurological: Negative for dizziness, syncope and weakness. Psychiatric/Behavioral: Negative for suicidal ideas, sleep disturbance and agitation. The patient is not nervous/anxious. All other systems reviewed and are negative. PAST MEDICAL HISTORY REVIEWED MEDICAL: Patient has a past medical history of Patient denies relevant medical history. SURGICAL: Patient has past surgical history that includes pt denies relevant surgical history. FAMILY: Patient's family history is not on file. SOCIAL: reports that she has been smoking Cigarettes. She has a 65 pack-year smoking history. She has neverused smokeless tobacco. She reports that she does not drink alcohol or use illicit drugs. No history on file. Social History Other Topics Concern ??? Not on file PROBLEM LIST: Patient does not have a problem list on file. ALLERGIES Review of patient's allergies indicates no known allergies. HOME MEDICATIONS Discharge Medication List as of 07/11/2015 10:51 PM START taking these medications Details predniSONE (DELTASONE) 20 mg tablet Take 2 Tablet (40 mg) by mouth daily Take two pills by mouth daily until all are gone.., Disp-10 Tablet, R-None HYDROcodone-acetaminophen (NORCO) 5-325 mg tablet Take 1 Tablet by mouth every 4 hours as needed for Pain, Moderate. Max Daily Amount: 6 Tablet, Disp-15 Tablet, R-0 CONTINUE these medications which have NOT CHANGED Details naproxen sodium (ANAPROX DS) 550 mg tablet Take 550 mg by mouth 2 times daily with meals. multivitamin (DAILY-CINTHYA) tablet Take 1 Tablet by mouth daily. Objective PHYSICAL EXAM INITIAL VS BP: (!) 158/71 mmHg (07/11/15 1808), Heart Rate: 84 bpm (07/11/151807), Resp: 18 (07/11/151807), Temp: 98 ??F (36.7 ??C) (07/11/151807), Temp src: Oral (07/11/151807), SpO2: 98 % (07/11/151807),Height: 5' 4 (162.6 cm) (07/11/151807), Weight: 53.978 kg (119 lb) (07/11/151807), BMI (Calculated): 20.47 (07/11/151807) No LMP recorded. Patient is postmenopausal. Physical Exam Constitutional: She appears well-developed and well-nourished. No distress. HENT: Head: Normocephalic and atraumatic. Mouth/Throat: No oropharyngeal exudate. Eyes: No scleral icterus. Neck: No tracheal deviation present. Cardiovascular: Normal rate, regular rhythm, normal heart sounds and intact distal pulses. Exam reveals no gallop and no friction rub. No murmur heard. Pulses: Dorsalis pedis pulses are 2+ on the right side, and 2+ on the left side. Pulmonary/Chest: No respiratory distress. She has no wheezes. She has no rales. She exhibits no tenderness. Abdominal: Soft. Bowel sounds are normal. She exhibits no distension and no mass. There is no tenderness. There is no rebound and no guarding. Musculoskeletal: She exhibits no edema (No lower extremity edema) or tenderness (No thigh or calf tenderness). Lymphadenopathy: She has no cervical adenopathy. Neurological: She is alert. Good strength to BLE Ambulates easily in ED Sensation intact L1-S1 Skin: No rash noted. She is not diaphoretic. No erythema. Mild varicose veins present to bilateral lower legs Psychiatric: Judgment normal. Nursing note and vitals reviewed. DIAGNOSTICS LAB: Labs this ED Encounter - No data to display RADIOLOGY: XR LUMBAR SPINE 2 OR 3 VW IMPRESSION: L5-S1 spondylolisthesis. 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 Diffuse osteopenia. Vascular calcification. EKG: PROCEDURES Procedures MEDICAL DECISION MAKING AND PLAN OF CARE The patient felt improved after pain medications given in the emergency room. Her lumbar spine films show evidence of arthritic changes. She was discharged home in stable condition with pain medicineand a short burst of steroids. REEVALUATION 9:43 PM: RN states pt's pain has not improved after Ultram. Will administer [place] and Zofran. 10:47 PM: Rechecked pt, whose sx have improved after Vicodin. Updated pt on their XR results. Patient will be discharged home with Rx for Vicodin. Recommended follow up with primary care. RTER with worsening sx. Pt understands and agrees with the plan. All questions and concerns addressed. The patient is stable for discharge. ED provider and ED nurse verbally discussed patient plan of care at this time. Medications Administered During the ED Stay from 07/11/2015 1747 to 07/11/2015 2330 Date/Time Order Dose Route Action 07/11/20152039 ketorolac (TORADOL) injection 60 mg 60 mg IM Given 07/11/20152042 traMADol (ULTRAM) tablet 50 mg 50 mg Oral Given 07/11/20152147 predniSONE (DELTASONE) tablet 40 mg 40 mg Oral Given 07/11/20152148 HYDROcodone-acetaminophen (NORCO) 5-325 mg per tablet 1 Tablet 1 Tablet Oral Given 07/11/20152147 ondansetron (ZOFRAN ODT) tablet 4 mg 4 mg Oral Given Discharge Medication List as of 07/11/2015 10:51 PM START taking these medications Details predniSONE (DELTASONE) 20 mg tablet Take 2 Tablet (40 mg) by mouth daily Take two pills by mouth daily until all are gone.., Disp-10 Tablet, R-None HYDROcodone-acetaminophen (NORCO) 5-325 mg tablet Take 1 Tablet by mouth every 4 hours as needed for Pain, Moderate. Max Daily Amount: 6 Tablet, Disp-15 Tablet, R-0 CONTINUE these medications which have NOT CHANGED Details naproxen sodium (ANAPROX DS) 550 mg tablet Take 550 mg by mouth 2 times daily with meals. multivitamin (DAILY-CINTHYA) tablet Take 1 Tablet by mouth daily. LAST VS BP: (!) 145/77 mmHg (07/11/152229), Heart Rate: 95 bpm (07/11/152229), Resp: 18 (07/11/152229), Temp: 98 ??F (36.7 ??C) (07/11/151807), Temp src: Oral (07/11/151807), SpO2: 95 % (07/11/15 2230) CLINICAL IMPRESSION Final diagnoses: [M54.5] Left-sided low back pain without sciatica (Primary) CODING MDM Coding Reviewed: nursing note and vitals Interpretation: SP02 and x-ray I have reviewed nursing notes and agree unless otherwise mentioned. DISPOSITION, EDUCATION AND MEDICATION RECONCILIATION Medications reconciled. See after visit summary for patient education on discharged patients. Follow up: [facility], PHYSICIAN REFERRAL LINE [phone] Call in 2 days DISCHARGED HOME IN STABLE CONDITION. ATTESTATION STATEMENTS This note has been prepared by Arturo Nelson acting as a scribe for Dr. Omer Garg on 07/11/2015 at 10:49 PM. The scribe's documentation has been prepared under my direction and personally reviewed by me, Forest, in its entirety on 07/11/2015 at 11:30 PM. I confirm that the note above accurately reflects all work, treatment, procedures, and medical decision making performed by me. 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 Office Visit [facility] Oncology and Hematology - [place] [address] [facility] [address] [place] [address] Reymundo Lee MD [address] [facility] [address] [place] [address] documented as of this encounter Procedures Procedure Name Priority Date/Time Associated Diagnosis Comments XR LUMBAR SPINE 2 OR 3 VW Stat 07/11/2015 10:09 PM CDT documented in this encounter Results * XR LUMBAR SPINE 2 OR 3 VW (07/11/2015 10:09 PM CDT) Anatomical Region Laterality Modality Spine Computed Radiogr aphy 07/11/2015 10:0 9 PM CDT Impressions 07/11/2015 11:11 PM CDT IMPRESSION: L5-S1 spondylolisthesis. 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 Diffuse osteopenia. Vascular calcification. Narrative 07/11/2015 11:11 PM CDT LUMBAR SPINE, THREE PROJECTIONS, 07/11/2015. CLINICAL HISTORY: 80-year-old woman with low back pain. AP, lateral and spot lateral projections of the lumbar spine reveal about 1.6 cm of anterior spondylolisthesis of L5 on S1. There is a vacuum disc phenomena at that level indicating disc degeneration. L5 spondylolysis is suspected. Vertebral bodies are diffusely osteopenic. Vertebral body height and alignment are well-maintained aside from the L5-S1 level. There is diffuse atherosclerotic change of the aorta and the iliac arteries. Some vascular calcification is noted in the splenic artery and near the renal halina. There is only minor degenerative spurring from L3 through L5. The pedicles appear intact. The sacroiliac joints appear normal. Procedure Note Stuart Gomez MD - 07/11/2015 LUMBAR SPINE, THREE PROJECTIONS, 07/11/2015. CLINICAL HISTORY: 80-year-old woman with low back pain. AP, lateral and spot lateral projections of the lumbar spine reveal about 1.6 cm of anterior spondylolisthesis of L5 on S1. There is a vacuum disc phenomena at that level indicating disc degeneration. L5 spondylolysis is suspected. Vertebral bodies are diffusely osteopenic. Vertebral body height and alignment are well-maintained aside from the L5-S1 level. There is diffuse atherosclerotic change of the aorta and the iliac arteries. Some vascular calcification is noted in the splenic artery and near the renal halina. There is only minor degenerative spurring from L3 through L5. The pedicles appear intact. The sacroiliac joints appear normal. IMPRESSION IMPRESSION: L5-S1 spondylolisthesis. 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 Diffuse osteopenia. Vascular calcification. Omer Garg MD DIAGNOSTIC IMAGING ORDERABLES Fi nal Result documented in this encounter Visit Diagnoses Diagnosis Left-sided low back pain without sciatica- Primary documented in this encounter Administered Medications Inactive Administered Medications - up to 3 most recent administrations Medication Order MAR Action Action Date Dose Rate Site HYDROcodone-acetaminophe n (NORCO) 5-325 mg per tablet 1 Tablet 1 Tablet, Oral, ONE TIME ONLY, 1 dose, On 07/11/15 at 2145, Routine Given 07/11/2015 9:49 PM CDT 1 Tablet ketorolac (TORADOL) injection 60 mg 60 mg, IM, ONE TIME ONLY, 1 dose, On 07/11/15 at 2014, Routine Given 07/11/2015 8:40 PM CDT 60 mg Arm, Right Upper ondansetron (ZOFRAN ODT) tablet 4 mg 4 mg, Oral, ONE TIME ONLY, 1 dose, On 07/11/15 at 2200, Routine Given 07/11/2015 9:48 PM CDT 4 mg predniSONE (DELTASONE) tablet 40 mg 40 mg, Oral, ONE TIME ONLY, 1 dose, On 07/11/15 at 214, Routine Given 07/11/2015 9:48 PM CDT 40 mg traMADol (ULTRAM) tablet 50 mg 50 mg, Oral, ONE TIME ONLY, 1 dose, On 07/11/15 at 2014, Routine Given 07/11/2015 8:43 PM CDT 50 mg documented in this encounter Active and Recently Administered Medications Times are shown in CDT. Scheduled Medication Order 07/09/2015 07/10/2015 07/11/2015 HYDROcodone-acetaminophen (NORCO) 5-325 mg per tablet 1 Tablet (COMPLETED) 1 Tablet, Oral, ONE TIME ONLY, 1 dose, On 07/11/15 at 214, Routine 2148 (Given - Provid er: Cristina Mcfadden RN) ketorolac (TORADOL) injection 60 mg (COMPLETED) 60 mg, IM, ONE TIME ONLY, 1 dose, On 07/11/15 at 2014, Routine 2039 (Given - Provid er: Cristina Mcfadden RN) ondansetron (ZOFRAN ODT) tablet 4 mg (COMPLETED) 4 mg, Oral, ONE TIME ONLY, 1 dose, On 07/11/15 at 2200, Routine 2147 (Given - Provid er: Cristina Mcfadden RN) predniSONE (DELTASONE) tablet 40 mg (COMPLETED) 40 mg, Oral, ONE TIME ONLY, 1 dose, On 07/11/15 at 214, Routine 2147 (Given - Provid er: Cristina Mcfadden RN) traMADol (ULTRAM) tablet 50 mg (COMPLETED) 50 mg, Oral, ONE TIME ONLY, 1 dose, On 07/11/15 at 2014, Routine 2042 (Given - Provid er: Cristina Mcfadden RN) documented in this encounter
--- OUTSIDE RECORDS SUMMARY | 2024-04-30 19:35 | XMS_ITS | Encounter Summary ---
Author Organization [facility] Address [address] [place] [address] Care Team Providers Care Director Of Market Analysis Name Role Phone Unavailable Primary Care Provider Unavailabl e Reason for Visit * Reason Comments Leg Pain Here with complaints of pain and redness to L ma. States has been present for approx 1 week. States has fallen on leg, but pain and redness present before fall. Reports diagnosed with arthritis * Auth/Cert Specialty Diagnoses / Procedures Referred By Kady t Referred To Contact Emergency Medicine [facility] Emergency Department [address] [place] [address] Phone: tel: fax: Referral ID Status Reason Start Date Expiration Date Visits Re quested Visits Authorized [id number] 1 1 Encounter Details Date Type Department Care Team (Late st Contact Info) Description 07/18/2015 1:15 PM CDT - 07/18/2015 2:13 PM CDT Emergency [facility] Emergency Department [address] [place] [address] Monica Zhao MD NO ADDRESS ON FILE Oneil Rosenberg MD [address] [place] [address] Cellulitis of left lower extremity (Primary Dx) Discharge Disposition: Home or Self [...] Sign Reading Time Taken Comments Blood Pressure 148/72 07/18/2015 2:00 PM CDT Pulse 87 07/18/2015 2:00 PM CDT Temperature 36.7 ??C (98 ??F) 07/18/2015 12:24 PM CDT Respiratory Rate 17 07/18/2015 2:00 PM CDT Oxygen Saturation 95% 07/18/2015 2:00 PM CDT Inhaled Oxygen Concentration - - Weight 54.4 kg (120 lb) 07/18/2015 12:24 PM CDT Height - - Body Mass Index 20.6 07/11/2015 6:08 PM CDT documented in this encounter Discharge Instructions * Discharge Instructions* Oneil Rosenberg MD - 07/18/2015 1:43 PM CDT Watch for redness spread beyond marked off area. Rarely a condition appears on shins which looks red and bruised which is a skin/fat layer inflammation (erythema nodosum) which is a benign condition which will resolsves spontaneously and supportivetreatement (ice, pain medications are usually sufficient) * Attachments The following attachments cannot be sent through Care Everywhere. * CELLULITIS (IRISH) documented in this encounter Medications at Time of Discharge multivitamin (DAILY-CINTHYA) tablet Take 1 Tablet by mouth daily. sulfamethoxazole- trimethoprim (BACTRIM DS) 800-160 mg tablet Take 2 Tablet by mouth 2 times daily. 28 Tablet None 07/18/2015 07/20/2015 oxyCODONE-acetami nophen (PERCOCET) 5-325 mg tablet Take 1-2 Tablet by mouth every 6 hours as needed for Pain, Moderate. Max Daily Amount: 8 Tablet 10 Tablet None 07/18/2015 07/20/2015 naproxen sodium (ANAPROX DS) 550 mg tablet [...] as of this encounter ED Notes * Sherie Dior - 07/18/2015 5:31 PM CDT ACCESSED CHART TO ENTER EKG ORDER PER VICE PRESIDENT LENDING. * Jigna Anand RN - 07/18/2015 2:11 PM CDT Pt provided discharge paperwork. Family at bedside. Wheelchair provided. * Oneil Rosenberg MD - 07/18/2015 1:32 PM CDT HISTORY OF PRESENT ILLNESS Carleen Lake, a 80 y.o. female presents to the ED with a Chief Complaint of Leg Pain Subjective HPI Comments: 80 yo here for left redness to left ma x 24 hours. 5 -6 days ago fell injuring leftknee. Has reoslving hematoma to left inf and lateral knee. Was not seen for Anything and knee pain and skin has been improving. Has nbeen using linement and vinegar and rubbinga dn icing entire leg. + some pain in left inguinal area. No systemic sx. Area about 10 cm linear redness not fluctuantor EN type. Leg Pain Associated symptoms: no neck pain REVIEW OF SYSTEMS Review of Systems Constitutional: Negative. Negative for activity change. HENT: Negative. Negative for congestion. Eyes: Negative. Negative for pain. Respiratory: Negative. Negative for chest tightness. Cardiovascular: Negative. Negative for chest pain. Gastrointestinal: Negative. Negative for nausea and abdominal pain. Genitourinary: Negative. Musculoskeletal: Positive for myalgias. Negative for neck pain. Skin: Negative. Negative for pallor and rash. Neurological: Negative. Negative for syncope. Psychiatric/Behavioral: Negative. Negative for behavioral problems. The patient is not nervous/anxious. All other [...] allergies indicates no known allergies. HOME MEDICATIONS Patient's Home Medications Current Home Medications HYDROCODONE-ACETAMINOPHEN (NORCO) 5-325 MG TABLET MULTIVITAMIN (DAILY-CINTHYA) TABLET NAPROXEN SODIUM (ANAPROX DS) 550 MG TABLET PREDNISONE (DELTASONE) 20 MG TABLET Medications Modified during this Encounter Medications Discontinued during this Encounter Objective PHYSICAL EXAM INITIAL VS BP: (!) 170/98 mmHg (07/18/15 1224), Heart Rate: 116 bpm (07/18/15 1224), Resp: 18 (07/18/15 1224),Temp: 98 ??F (36.7 ??C) (07/18/15 1224), Temp src: Oral (07/18/15 1224), SpO2: 97 % (07/18/15 1224), Height: (not recorded), Weight: 54.432 kg (120 lb) (07/18/15 1224), BMI (Calculated): (not recorded) No LMP recorded. Patient is postmenopausal. Physical Exam Constitutional: She is oriented to person, place, and time. She appears well- developed and well-nourished. HENT: Head: Normocephalic. Mouth/Throat: Oropharynx is clear and moist. Eyes: Conjunctivae and EOM are normal. Pupils are equal, round, and reactive to light. Neck: Neck supple. No thyromegaly present. Cardiovascular: Normal rate, normal heart sounds and intact distal pulses. No murmur heard. Pulmonary/Chest: Effort normal and breath sounds normal. No stridor. No respiratory distress. She has no wheezes. She exhibits no tenderness. Abdominal: Soft. Bowel sounds are normal. She exhibits no distension. There is no tenderness. Thereis no guarding. Musculoskeletal: Normal range of motion. She exhibits no edema. Lymphadenopathy: She has no cervical adenopathy. Neurological: She is alert and oriented to person, place, and time. She has normal reflexes. No cranial nerve deficit. Skin: Skin is warm and dry. No rash noted. Redness to left anterior am. No circ. Resolving hematoma to left knee inf and lateral. Knee jointintact. mild lad in left inguinal area Psychiatric: She has a normal mood and affect. Her behavior is normal. Judgment and thought contentnormal. Nursing note and vitals reviewed. DIAGNOSTICS LAB: Labs this ED Encounter - No data to display RADIOLOGY: No orders to display EKG: Sinus Rhythm at 95, nl WA, nl QRS, nl QT, nl axis, nl R wave progression, nl EKG - unclear why pt had ekg in triage as she has no pulm or cardiac or acs type concerns PROCEDURES Procedures MEDICAL DECISION MAKING AND PLAN OF CARE Summary: pt c likely topical medication idcued inflammation or possible early cellulitis. increasedpain at night. No systemic sx. Benign exam. Will demarcate area and tx c pain meds and antibx. Pt and son (who is familiar c cellulitis) will obs pt over the next 48-72 hours for wound progression Ifpresent DDx: cellulitis, dermatis, irritation dernmatitis PLAN: spoke c pt about use and lmit of topical agents, pain meds, po antibx, dc home REEVALUATION CASE DISCUSSED . New Prescriptions for this Encounter LAST VS BP: (!) 170/98 mmHg (07/18/15 1224), Heart Rate: 116 bpm (07/18/15 1224), Resp: 18 (07/18/15 1224),Temp: 98 ??F (36.7 ??C) (07/18/15 1224), Temp src: Oral (07/18/15 1224), SpO2: 97 % (07/18/15 1224) CLINICAL IMPRESSION Final diagnoses: None CODING MDM Coding Reviewed: previous chart and vitals Interpretation: labs DISPOSITION, EDUCATION AND MEDICATION RECONCILIATION Medications reconciled. See after visit summary for patient education on discharged patients. ATTESTATION STATEMENTS * Jigna Anand RN - 07/18/2015 1:23 PM CDT Pt fell on knee/ LLE on Sunday. States that she had bruising but denies redness. Pt reports she placed a cream on leg and apple cider vinegar. Pt noticed redness this morning to ma. Redness and swelling noted to L ma. Bruising noted to L knee. Pt rates pain 01/16. Pt placed on continuous pulse ox/ BP. Pt states she was recently diagnosed with arthritis. AOx4. RR even/ unlabored. No acute distress at this time. +PMS. Skin PWD. MD Rosenberg at bedside. 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 Stationary ECG Study ? [facility] ? Test Date: ?07/18/2015 12:46 AM Pat Name: ? CARLEEN LAKE ? Department: ?? 13 ?Room: ? 07 07 Gender: ? F ?Slag Skimmer: ?? [email or web address] : ?1935 ? Requested By: MONICA ZHAO CASSI Order Number: [id number] ?Reading MD: ?? Heath Granados ? Measurements Intervals ?[place]ons ? Rate: ? 95 ? P: ?77 WA: ? 157 ?QRS: ?58 QRSD: ? 73 ? T: ?62 QT: ? 324 ? QTc: ?407 ? Interpretive Statements ? SINUS RHYTHM POSSIBLE LEFT ATRIAL ENLARGEMENT [-0.1mV P WAVE IN V1/V2] Electronically Signed On 07-18-2015 21:22:03 CDT by Heath Granados Procedure Note Provider, Nahed / Heath Granados MD - 06/21/2021 Stationary ECG Study [facility] Test Date: 07/18/2015 12:46 AM Pat Name: CARLEEN LAKE Department: 13 Room: 07 Gender: F Slag Skimmer: caroline : 1935 Requested By: MONICA YE Order Number: [id number] Reading MD: Heath Granados Measurements Intervals Lyons Rate: 95 P: 77 WA: 157 QRS: 58 QRSD: 73 T: 62 QT: 324 QTc: 407 Interpretive Statements SINUS RHYTHM POSSIBLE LEFT ATRIAL ENLARGEMENT [-0.1mV P WAVE IN V1/V2] Electronically Signed On 07-18-2015 21:22:03 CDT by Heath Granados us [facility] ECG ORDERABLES Edit ed Result - Final INTERFACE SYSTEM Refer to clinic/hospital department documented in this encounter Visit Diagnoses Diagnosis Cellulitis of left lower extremity- Primary Cellulitis and abscess of leg, except foot documented in this encounter
--- OUTSIDE RECORDS SUMMARY | 2024-04-30 19:35 | XMS_ITS | Encounter Summary ---
Author Organization [facility] Address [address] [place] [address] Care Team Providers Care Transistor Tester Name Role Phone Unavailable Primary Care Provider Unavailabl e Encounter Details Date Type Department Care Team (Late st Contact Info) Description 07/19/2015 Nurse Triage Report [facility] ABSTRACTION Kerri Ramos, RN [address] [place] [address] Social History Tobacco Use Types Packs/Day Years [...] as of this encounter Progress Notes * Margareth Ramos RN - 07/19/2015 6:22 AM CDT CHART DOCUMENTATION ONLY Call Type: Triage Call Presenting Problem: I am vomiting up my Percocet and Bactrim. Associated Symptoms: 6-7 episodes of vomiting-with small amount of blood and mucous/occurs after taking pain meds/decreased appetite/ Onset: 7 hours Location: GI Pain Assessment: 1 - 10 with 10 being the most severe pain ongoing leg pain from cellulitis-9/10 Treatment so far for current presenting problem: none History (Clinical Problems): Cellulitis Medications: Oxycodone/Bactrim Medication reactions: NKDA <<<<<<<< TRIAGE NOTE >>>>>>>> <<<<<<<< TRIAGE/OUTCOME >>>>>>>> Guideline Title: Gastrointestinal Bleeding Recommended Disposition: Activate EMS 911 Original Inclination: Seek Care in ER Intended Action: Seek care in ER Physician Contacted: No Vomiting red, bloody or coffee-ground material, more than streaks of blood or scant amount (not following nosebleed within past day) ? YES 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 LINE BUILDER Office Visit [facility] Oncology and Hematology - [place] [address] [place] [address] [facility] [address] [place] [address] Reymundo Lee MD [address] [facility] [address] [place] [address] documented as of this encounter Visit Diagnoses Not on filedocumented in this encounter
--- OUTSIDE RECORDS SUMMARY | 2024-04-30 19:35 | XMS_ITS | Encounter Summary ---
Author Organization [facility] Address [address] [place] [address] Care Team Providers Care Supervisor Marble Name Role Phone Unavailable Primary Care Provider Unavailabl e Reason for Visit * Auth/Cert Specialty Diagnoses / Procedures Referred By Kady jenkins Referred To Contact Multi Specialty Procedures ESOPHAGOGASTRODUODENOSCOPY [address] [place] [address] Phone: tel: fax: Referral ID Status Reason Start Date Expiration Date Visits Re quested Visits Authorized [id number] 07/20/2015 08/19/2016 1 Encounter Details Date Type Department Care Team (Late st Contact Info) Description 07/19/2015 2:29 PM CDT Anesthesia Event [facility] GI Lab S [facility] [address] [place] [address] Zaire Crenshaw MD [address] [place] [address] Shana Clarke, CLARENCE [address] [place] [address] Anesthesia Record Procedure Summary Procedure Name Responsible Anesthesiologist Anesthesia Start Time Anesthesia Stop Time ESOPHAGOGASTRODUODENOSCOPY (Mouth) Zaire Crenshaw MD 07/19/15 1429 07/19/15 1503 Events Date Time Event Comment 07/19/2015 1429 AN Equip Check Anesthesia eq uipment and materials checked in accordance with local policy. 1429 An Start 1429 An Start Data 1430 1430 Pre-Induction Immediate pre- induction anesthetic assessment performed. Vital signs as noted on graphic. 1435 An Induction 1437 Anesthesia Ready 1437 an jerry now 1452 an jerry now 1455 an stop data 1503 An Stop 07/20/2015 0750 Follow-up Complete Meds Name Total lidocaine (XYLOCAINE) 2% injection 20 mg propofol (DIPRIVAN) 10??mg/mL injection 360 mg phenylephrine in NS (PF) 1??mg/10 mL syr michael 100 mcg lactated ringers solution 800 mL * Agents Name O2 Inspired O2 N2O Inspired N2O O2 * Blood No blood administrations on file. Lines, Drains, and Airways Type Details Placement Removal Peripheral IV Pre-Hospital Start: No; Orientation: Right, Lower; Location: Arm; Gauge: 18 gauge; Insertion Attempts: 1; Patient Tolerance: tolerated well 07/19/15 1154 by Christine Richter RN 07/20/15 1502 by Carey De La Torre RN Supraglottic Airway Type: nasal cannula; Confirmation: end tidal CO2, satisfactory chest rise, SAO2 07/19/15 1430 by Shana Clarke CRNA 07/19/15 1453 by Shana Clarke CRNA documented in this encounter Social History Tobacco [...] on file documented as of this encounter OR Notes * Anesthesia Post-Op Follow-up Note - Heath Means CRNA - 07/20/2015 7:50 AM CDT 07/20/2015 8:05 AM [place] No apparent Anesthesia related complications Heath Means CRNA Cosigned by Zaire Crenshaw MD at 07/30/2015 4:57 PM CDT * Anesthesia Postprocedure Evaluation - Mounika Posey MD - 07/19/2015 4:24 PM CDT Post Anesthesia Evaluation Phase II Postanesthesia Evaluation Including [facility] Modified Lizzie Score Patient seen and evaluated: Margy Modified Lizzie Score: Score: 20 (07/19/151511) COMMENTS: No apparent Anesthesia related complications RESPIRATORY FUNCTION: Respiration: able to breath and cough freely (07/19/151511) [2=able to breathe and cough freely, 1=dyspnea, limited breathing or tachypnea, 0=apnea or mechanicventilator] O2 Saturation: able to maintain O2 saturation greater than 92% on room air (07/19/151511) [2=able to maintain O2 saturation greater than 92% on room air, 1=needs O2 inhalation to maintain O2 saturation greater than 90%, 0=O2 saturation less than 90% even with O2 supplement] Resp: 20 (07/19/151617)SpO2: 93 % (07/19/151617) CARDIOVASCULAR FUNCTION: Heart Rate: 86 bpm (07/19/151617) BP: 134/56 mmHg (07/19/151617) Circulation: BP within 20% of preanesthetic level (07/19/151511) [2=BP within 20% of preanesthetic level, 1=BP within 20-49% of preanesthetic level, 0=BP within 50%of preanesthetic level] MENTAL STATUS, NEURO, ACTIVITY: PATIENT PARTICIPATION IN EVALUATIONyes Consciousness: fully awake (07/19/151511) [2=fully awake, 1=arousable on calling, 0=not responding] Activity: able to move 4 extremities voluntarily or on command (07/19/151511) [2=able to move 4 extremities voluntarily or on command, 1=able to move 2 extremities voluntarily or on command, 0=unable to move extremities voluntarily or on command] Ambulation: able to stand up and walk straight, on ordered bedrest, or performing at patient's prior level of function (07/19/151511) [2=able to stand up and walk straight, on ordered bedrest, or performing at patient's prior level of function, 1=vertigo when erect, 0=dizziness when supine] TEMPERATURE: Temp: 36.8 ??C (07/19/15 1618) PAIN: Pain Rating: Rest: 10 (07/19/15 1509) Presence of Pain: complains of pain/discomfort (07/19/15 150) Pain: pain free (07/19/151511) [2=pain free, 1=pain handled by oral medication, 0=pain requiring parenteral medication] NAUSEA AND VOMITING: no nausea and no vomiting Fasting/Feeding: able to drink fluids, ice chips or NPO (07/19/151511) [2=able to drink fluids, ice chips or NPO, 1=nauseated, 0=nausea and vomiting] POSTOPERATIVE HYDRATION: well hydrated Intake/Output Summary (Last 24 hours) at 07/19/15 1624 Last data filed at 07/19/15 1445 Gross per 24 hour Intake 800 ml Output 0 ml Net 800 ml Urine Output: has voided, adequate urine output per device, or not applicable (07/19/151511) [2=has voided, adequate urine output per device, or not applicable, 1=unable to void but comfortable, 0=unable to void and uncomfortable] WOUND: Dressing: dry and clean or not applicable (07/19/151511) [2=dry and clean or not applicable, 1=wet, marked and not increasing, 0=growing area of wetness] Mounika Posey MD 07/19/2015 4:24 PM Vitals: BP 134/56 mmHg Pulse 86 Temp(Src) 36.8 ??C (Oral) Resp 20 Ht 5' 4 (1.626 m) Wt 57.788 kg (127 lb 6.4 oz) BMI 21.86 kg/m2 SpO2 93% Pain Rating: Pain Rating: Rest: 10 (07/19/15 1509) Nausea/Vomiting: no nausea and no vomiting Post-Op hydration: well hydrated Respiratory function: no respiratory symptoms Airway patency: normal Cardiovascular function: Normal - Regular rate and rhythm Mental status, LOC: 0=alert; keenly responsive Patient participated in evaluation: yes Anesthetic complications: no Mounika Posey MD * Anesthesia Handoff - Shana Clarke CRNA - 07/19/2015 3:01 PM CDT Post-Anesthetic transfer of care report elements to appropriate post-anesthesia recovery environment completed in accordance with procedure. I completed my handoff to the receiving nurse during which we: 1. Identified the patient 2. Identified the responsible provider 3. Reviewed the pertinent medical history 4. Discussed the surgical course 5. Reviewed intra-op anesthesia management and issues during anesthesia 6. Set expectations for post-procedure period 7. Allowed opportunity for questions and acknowledgement of understanding. Vital Signs: BP: 117/48 mmHg (07/19/2015 2:59 PM) Pulse: 84 (07/19/2015 2:59 PM) Heart Rate: 99 bpm (07/19/2015 8:08 AM) Temp: 36.9 ??C (07/19/2015 2:59 PM) Resp: 18 (07/19/2015 2:59 PM) SpO2: 96 % (07/19/2015 2:59 PM) 3:03 PM Shana Clarke CRNA * Anesthesia Preprocedure Evaluation - Zaire Crenshaw MD - 07/19/2015 2:24 PM CDT Anesthesia Evaluation Anesthesia Plan ASA 2 MAC Intravenous induction NPO status > 8 hours Anesthetic plan and risks discussed with Patient. Plan discussed with Nurse Elementary School Teacher'S Aide. GI Lab Pre-Anesthesia Evaluation - Long Form 07/19/2015 2:29 PM Name: Valeria Lake Age: 80 y.o. Sex: female [facility]: [id number] Procedure: Procedure(s): ESOPHAGOGASTRODUODENOSCOPY Surgeons/Assistants: Surgeon(s) and Role: * Johnson Yates MD - Primary No Known Allergies (Not in a hospital admission) Current Facility-Administered Medications Medication Dose Route Frequency Provider Last Rate Last Dose ??? [COMPLETED] ondansetron (ZOFRAN) 4 mg/2 mL injection 4 mg 4 mg IV ONCE Monica Zhao MD 4 mg at 07/19/15 0843 ??? [COMPLETED] pantoprazole (PROTONIX) injection 40 mg 40 mg IV ONCE Monica Zhao MD 40 mg at 07/19/15 0843 ??? [COMPLETED] sodium chloride 0.9% bolus solution 500 mL 500 mL IV ONCE Monica Zhao MD Stopped at 07/19/15 0943 ??? traMADol (ULTRAM) tablet 50 mg 50 mg Oral ONCE Monica Zhao MD 50 mg at 07/19/15 1045 ??? [COMPLETED] HYDROcodone-acetaminophen (HYCET) 7.5-325 mg/15 mL oral solution 15 mL 7.5 mg Oral ONCE Monica Zhao MD 15 mL at 07/19/15 1051 ??? ceFAZolin (ANCEF) IVPB 1,000 mg 1,000 mg IV q 8 hour Monica Zhao MD Stopped at 07/19/15 1242 ??? sodium chloride 0.9% infusion IV Continuous Monica Zhao MD 150 mL/hr at 07/19/15 1139 ??? lactated ringers solution IV Continuous Johnson Yates MD 150 mL/hr at 07/19/15 1412 Current Outpatient Prescriptions Medication Sig Dispense Refill ??? sulfamethoxazole-trimethoprim (BACTRIM DS) 800-160 mg tablet Take 2 Tablet by mouth 2 times daily. 28 Tablet None ??? oxyCODONE-acetaminophen (PERCOCET) 5-325 mg tablet Take 1-2 Tablet by mouth every 6 hours as needed for Pain, Moderate. Max Daily Amount: 8 Tablet 10 Tablet None ??? naproxen sodium (ANAPROX DS) 550 mg tablet Take 550 mg by mouth 2 times daily with meals. ??? multivitamin (DAILY-CINTHYA) tablet Take 1 Tablet by mouth daily. ??? HYDROcodone-acetaminophen (NORCO) 5-325 mg tablet Take 1 Tablet by mouth every 4 hours as needed for Pain, Moderate. Max Daily Amount: 6 Tablet 15 Tablet 0 ??? [DISCONTINUED] predniSONE (DELTASONE) 20 mg tablet Take 2 Tablet (40 mg) by mouth daily Take two pills by mouth daily until all are gone.. 10 Tablet None Patient Active Problem List Diagnosis Date Noted ??? Pharyngoesophageal dysphagia 07/19/2015 ??? Left leg cellulitis 07/19/2015 ??? Hematemesis 07/19/2015 ??? Tobacco abuse 07/19/2015 ??? Sciatica of left side 07/19/2015 ??? Weight loss 07/19/2015 Past Medical History Diagnosis Date ??? Patient denies relevant medical history Past Surgical History Procedure Laterality Date ??? Pt denies relevant surgical history History Substance Use Topics ??? Smoking status: Current Every Day Smoker -- 1.00 packs/day for 65 years Types: Cigarettes ??? Smokeless tobacco: Never Used ??? Alcohol Use: No Family History Problem Relation Age of Onset ??? Uterine Cancer Mother Previous Anesthesia Problems/Concerns: No anesthesia problems/complications Review of Systems Cardiovascular: negative Respiratory: negative Gastroenterology: positive for vomiting blood Bowel Prep:No PHYSICAL EXAM BP 148/71 mmHg Pulse 88 Temp(Src) 36.7 ??C (Temporal) Resp 18 Ht 5' 4 (1.626 m) Wt 54.432 kg (120 lb) BMI 20.59 kg/m2 SpO2 92% Weight: Weight: 54.432 kg (120 lb) (07/19/15 0808) Height: Ht Readings from Last 1 Encounters: 07/19/15 5' 4 (1.626 m) BMI: Body mass index is 20.59 kg/(m^2). Airway: normal range of motion: Airway Class: III (soft palate, base of uvula visible); None Lungs: clear to auscultation bilaterally, normal respiratory effort Heart: regular rate and rhythm, S1, S2 normal, no murmur, click, rub or gallop Neuro: alert, oriented x 3, no defects noted in general exam. Vascular Access: Peripheral Line LABS Lab Results Component Value Date/Time WBC 13.6* [...] 08:40 AM GLUCOSE 101* 07/19/2015 08:40 AM ANION GAP 15 07/19/2015 08:40 AM No results found for: INR, PT, PROTIMEPOC No results found for: HCGURPOC, HCGQUALUR, HCGQUAL, HCGQUANT, HCGINTACT No results found for: GLUCPOC EK07/18/2015 ??9:22 PM ?? Narrative ? Stationary ECG Study ? [facility] ? Test Date: ?07/18/2015 12:46 AM Pat Name: ? VALERIA LAKE ? Department: ?? 13 ?Room: ? 07 07 Gender: ? F ?Line Out Worker: ?? [email or web address] : ?1935 ? Requested By: MONICA ZHAO CASSI Order Number: [id number] ?Reading MD: ?? Heath Granados ? Measurements Intervals ?[place] ? Rate: ? 95 ? P: ?77 NC: ? 157 ?QRS: ?58 QRSD: ? 73 ? T: ?62 QT: ? 324 ? QTc: ?407 ? Interpretive Statements ? SINUS RHYTHM POSSIBLE LEFT ATRIAL ENLARGEMENT [-0.1mV P WAVE IN V1/V2] Electronically Signed On 07-18-2015 21:22:03 CDT by Heath Granados Other Studies/Considerations: None Postprocedure pain management discussed yes Smoking/Tobacco Counseling: None Recommendations: None ASA Physical Status: ASA 2 - Patient with mild systemic disease with no functional limitations I have seen and examined this patient and confirm that all data is current and accurate. Yes Choice of Anesthesia/Anesthesia Plan: Proceed, Monitored Anesthesia Care and Routine Monitoring I have discussed the anesthetic options and the risks/benefits with the patient/family. Questions have been solicited and answered. Yes Zaire Crenshaw MD documented in this encounter Miscellaneous Notes * Addendum Note - Heath Means CRNA - 07/20/2015 8:05 AM CDT Addendum created 07/20/15 0805 by Heath Means CRNA Modules edited: Anesthesia Events, Narrator Narrator: Narrator: Event Log Edited 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 ANALYTICAL CHEMIST Office Visit [facility] Oncology and Hematology - [place] [address] [facility] [address] [place] [address] Reymundo Lee MD [address] [facility] [address] [place] [address] documented as of this encounter Visit Diagnoses Not on filedocumented in this encounter Administered Medications Inactive Administered Medications - up to 3 most recent administrations Medication Order MAR Action Action Date Dose Rate Site lidocaine 2 % (XYLOCAINE) injection INTRA-PROCEDURE PRN, Starting on Sun07/19/15 at 1435, Until Sun07/19/15 at 1504, Other (See Comment), Routine, Anesthesia Intra-op Given 07/19/2015 2:35 PM CDT 20 mg phenylephrine in NS 1 mg/10 mL (100 mcg/mL) injection INTRA-PROCEDURE PRN, Starting on Sun07/19/15 at 1452, Until Sun07/19/15 at 1504, Routine, Anesthesia Intra-op Given 07/19/2015 2:52 PM CDT 100 mcg propofol (DIPRIVAN) injection INTRA-PROCEDURE PRN, Starting on Sun07/19/15 at 1435, Until Sun07/19/15 at 1504, Anesthesia Intra-op Given 07/19/2015 2:48 PM CDT 40 mg Given 07/19/2015 2:45 PM CDT 40 mg Given 07/19/2015 2:44 PM CDT 40 mg documented in this encounter
== END 2024-04-25 14:50 | DRG 536 ==
LOC: ANHED 08:12 → ANH3MEDSUR 11:35
PROVIDERS: Emergency Medicine; Admitting Provider Hospitalist; Emergency Provider Emergency Medicine; PCP Internal Medicine Hematology & Oncology; Visit Provider Nurse Practitioner Family
DX: S32.591A Other specified fracture of right pubis, initial encounter for closed fracture (principal); N30.00 Acute cystitis without hematuria; E44.0 Moderate protein-calorie malnutrition; Z68.1 Body mass index [BMI] 19.9 or less, adult; C50.911 Malignant neoplasm of unspecified site of right female breast; B96.20 Unspecified Escherichia coli [E. coli] as the cause of diseases classified elsewhere; B96.89 Other specified bacterial agents as the cause of diseases classified elsewhere; W19.XXXA Unspecified fall, initial encounter; F17.210 Nicotine dependence, cigarettes, uncomplicated; J44.9 Chronic obstructive pulmonary disease, unspecified; K21.9 Gastro-esophageal reflux disease without esophagitis; Z86.73 Personal history of transient ischemic attack (TIA), and cerebral infarction without residual deficits; Z92.21 Personal history of antineoplastic chemotherapy; Z20.822 Contact with and (suspected) exposure to COVID-19; Z79.82 Long term (current) use of aspirin
CPT/HCPCS: 36415; 71046; 72125; 73502; 73552; 73700; 80053; 81001; 83880; 85025; 86300; 87086; 87186; 87637; 94640; 96361; 96365; 96367; 96375; 96376; 97116; 97161; 97166; 97530; 97535; 99285; A9270; G0378; J0456; J0696; J2270; J2550; J7030

== ENCOUNTER 2024-06-20 13:26 | Emergency (ER) | payer MEDICARE, SELFPAY ==
--- NOTE | ~2024-06-20 | US_ITS ---
LEFT LOWER EXTREMITY VENOUS ULTRASOUND Ordering provider: Dejah Cabrera PA-C History: . pain, swelling, redness, wound ma . Comparison: None. FINDINGS: --COMMON FEMORAL: Patent and free of thrombus. Normal compressibility, phasic flow and augmentation. --PROXIMAL SUPERFICIAL FEMORAL: Patent and free of thrombus. Normal compressibility, phasic flow and augmentation. --DISTAL SUPERFICIAL FEMORAL: Patent and free of thrombus. Normal compressibility, phasic flow and au gmentation. --POPLITEAL: Patent and free of thrombus. Normal compressibility, phasic flow and augmentation. --POSTERIOR TIBIAL: Patent and free of thrombus. Normal compressibility, phasic flow and augmentation . IMPRESSION: Negative left lower extremity venous US. No deep vein thrombosis. Reviewed, dictated and finalized at location A.
--- OUTSIDE RECORDS SUMMARY | 2024-06-20 13:29 | XMS_ITS | Clinical Summary ---
Author Organization [facility] Address [address] [place] [address] Phone Care Team Providers Care Hand Expansion Envelope Maker Name Role Phone Unavailable Primary Care Provider [...] mg) by mouth daily. 90 Tablet 3 10/05/2023 Active ondansetron (ZOFRAN ODT) 4 mg Tablet, Rapid Dissolve Take 1 Tablet (4 mg) by mouth every 8 hours as needed for Nausea/Emesis . Dissolve tablet on top of tongue, then swallow with saliva. 30 Tablet 1 01/24/2024 Active pantoprazole (PROTONIX) 40 mg Tablet, Delayed Release (E.C.) TAKE 1 TABLET BY MOUTH EVERY DAY 90 Tablet 1 03/17/2024 Active lapatinib (TYKERB) 250 mg tablet Take 4 Tablets (1,000 mg) by mouth daily before breakfast. 120 Tablet 4 04/21/2024 Active Active Problems Problem Noted Date Diagnosed Date Sandra-Banegas tear 07/20/2015 Duodenitis without hemorrhage 07/20/2015 Pharyngoesophageal dysphagia 07/19/2015 Left leg cellulitis 07/19/2015 Hematemesis 07/19/2015 Tobacco abuse 07/19/2015 Sciatica of left side 07/19/2015 Weight loss 07/19/2015 Dizziness Encounters Date Type Department Care Team Description 06/10/[address] [facility] Oncology and Hematology - [place] [address] [place] [address] Reymundo Lee MD 05/27/2024 External Device Data [facility] Provider, Abstract 05/12/[address] [facility] Oncology and Hematology - [place] [address] [place] [address] Reymundo Lee MD 05/01/2024 External Device Data [facility] Provider, Abstract 04/30/2024 External Device Data [facility] Provider, Abstract 04/29/2024 External Device Data [facility] Provider, Abstract 04/25/[address] [facility] Oncology and Hematology - [place] [address] [place] [address] Reymundo Lee MD 04/23/[address] [facility] Oncology and Hematology - [place] [address] [place] [address] Scanning, Provider 04/21/[address] [facility] Oncology and Hematology - [place] [address] [place] [address] Reymundo Lee MD 04/21/2024 Specialty Pharmacy [facility] [address] [place] [address] Tiffanie Cooper, PHARMACIST 04/17/[address] [facility] Oncology and Hematology - [place] [address] [place] [address] Reymundo Lee MD from Last 3 Months Family History Medical History Relation Name Comments Prostate Cancer Brother Uterine Cancer Mother Brain Cancer Sister Leukemia Son 1 Relation Name Status Comments Brother Alive Father Mother Sister Son 1 Alive Son 2 Alive Son 3 Alive Social History Tobacco Use Types Packs/Day Years Used Date Smoking Tobacco: Every Day Cigarettes 1 66 Started: 06/08/2023 Smokeless Tobacco: Never Alcohol Use [...] 69 01/24/2024 10:24 AM CDT Temperature 36.3 C (97.3 F) 01/24/2024 10:24 AM CDT Respiratory Rate 17 01/24/2024 10:24 AM CDT Oxygen Saturation 94% 01/24/2024 10:24 AM CDT Inhaled Oxygen Concentration - - Weight 47.3 kg (104 lb 3.2 oz) 01/24/2024 10:24 AM CDT Height 162.6 cm (5' 4 ) 08/06/2023 1:55 PM CDT Body Mass Index 17.89 08/06/2023 1:55 PM CDT Plan of Treatment Health Maintenance Due Date Last Done Comments DTAP/TDAP/TD VACCINES (1 - Tdap) 1954 PNEUMOCOCCAL VACCINE 50+ YEARS (1 of 2 - PCV) 05/25/18 57 Traditional Medicare (ACO) Annual Wellness Visit 05/25 ZOSTER VACCINE (1 of 2) 1987 OSTEOPOROSIS SCREENING 2002 RSV VACCINE (60+ or ) (1 - 1-dose 75+ series) 2012 INFLUENZA VACCINE (#1) 2023 Procedures Procedure Name Priority Date/Time Associated Diagnosis Comments COMPREHENSIVE METABOLIC PANEL Routine 04/23/2024 2:10 PM ELECTRIC FAN ASSEMBLER URINE CULTURE Routine 04/23/2024 12:48 PM ELECTRIC FAN ASSEMBLER from Last 3 Months Results * COMPREHENSIVE METABOLIC PANEL (04/23/2024 2:10 PM ELECTRIC FAN ASSEMBLER) Blood us Provider Scanning CHEMISTRY ORDERABLES Final Res ult * URINE CULTURE (04/23/2024 12:48 PM ELECTRIC FAN ASSEMBLER) Urine us Provider Scanning MICROBIOLOGY - GENERAL ORDERAB LES Final Result from Last 3 Months Insurance MEDICARE PART A AND B [employer] Medicare Part D Advance Directives For more information, please contact: [phone] * Full Code (Latest Code Status on File) Date Activated Date Inactivated Comments 07/19/2015 3:53 PM 07/20/2015 5:50 PM
--- OUTSIDE RECORDS SUMMARY | 2024-06-20 13:29 | XMS_ITS | Encounter Summary ---
Author Organization [facility] Address [address] [place] [address] Care Team Providers Care Lead Embedded Software Engineer Name Role Phone Unavailable Primary Care Provider Unavailabl e Encounter Details Date Type Department Care Team (Late st Contact Info) Description 07/19/2015 Nurse Triage Report [facility] Kerri Ramos, RN [address] [place] [address] Social History Tobacco Use Types [...]
--- OUTSIDE RECORDS SUMMARY | 2024-06-20 13:29 | XMS_ITS | Data Portability ---
Author Organization [employer] [facility], Main Office Address [address] [place] [address] Care Team Providers Care Pick Up And Delivery Driver Name Role Phone REYMUNDO LEE Medical Oncologist [facility] FAX OTHER Assessment Encounter Date Assessment Date Assessment LastModified by Organization Details LastModified Time 05/26/2024 05/26/2024 Xray of [R] shoulder. Reattempt voiding trial. Obtain UA. Labs (CBC, CMP, CRP) on 05/29. [facility] appointment needs to be scheduled. Not available 05/26/2024 13:58:56 05/28/2024 05/28/2024 Urine cx pending from 05/27. Labs (CBC, CMP, CRP) on 05/29. [facility] appointment needs to be scheduled -- TRENA is aware and working on this today. Not available 05/28/2024 18:30:18 05/30/2024 05/30/2024 Urine cx pending from 05/27. Increase Pantoprazole to BID. Not available 05/30/2024 13:49:07 06/03/2024 06/03/2024 Therapy will be conducting oxygen study for need at discharge. Not available 06/04/2024 17:59:24 06/06/2024 06/06/2024 Pt will d/c to [facility] with [facility] on 06/07. Pt will need a wheelchair at discharge, which has been ordered. Pt needs to establish with a PCP. Not available 06/07/2024 12:21:48 Plan of Treatment Reminders Order Date Submit Date Provider Last Modified By Organization Details Last Modified Time Details Appointments None record ed. Lab None record ed. Referral None record ed. Procedures None record ed. Surgeries None record ed. Imaging None record ed. Medication Orders None record ed. Patient TargetsNo targets recorded. Patient Instructions Encounter Date Encounter Id Patient Instructions Last Modified By Organization Details Last Modified Time 05/26/[id number] I spent {{ 36#}} minutes providing care to the patient today. More than 50% of that time was spent in discussing the expected course of the disease, discussing prognosis, coordinating care and counseling of the patient/family. [email or web address] jose medical Not available 05/26/2024 14:00:58 05/28/2024 [id number] I spent {{ 35#}} minutes providing care to the patient today. More than 50% of that time was spent in discussing the expected course of the disease, discussing prognosis, coordinating care and counseling of the patient/family. Not available 05/28/2024 18:32:45 05/30/[id number] I spent {{ 37#}} minutes providing care to the patient today. More than 50% of that time was spent in discussing the expected course of the disease, discussing prognosis, coordinating care and counseling of the patient/family. Not available 05/30/2024 13:50:57 06/03/2024 [id number] I spent {{ 36#}} minutes providing care to the patient today. More than 50% of that time was spent in discussing the expected course of the disease, discussing prognosis, coordinating care and counseling of the patient/family. kbdarwinsan jose medical Not available 06/04/2024 17:59:29 06/06/[id number] I spent {{ 45#}} minutes providing care to the patient today. More than 50% of that time was spent in discussing the expected course of the disease, discussing prognosis, coordinating care and counseling of the patient/family. The patient will be discharged home with home health orders of home health RN / PT / OT to evaluate and treat. The patient is homebound because of {{gait instability poor balance fall risk* respiratory difficulties cogni tive impairment disorie ntation severe pain wounds}} and is unable to leave home safely because {{requires use of an assistive device and assistance of another person to leave home requires considerable and taxing effort to leave home* of cognitive impairment}}. The patient requires home health nursing for instruction, observation and assessment; PT for training to restore safe independent functional ambulation in community; and OT for training to improve ability to fulfill ADLs. Please follow-up with your primary care provider within 1 week. Call your primary care provider for instructions or go to the emergency room for new or worsening symptoms. The patient has a mobility limitation (chronic postural dizziness/vertigo) that significantly impairs ability to participate in mobility-related activities of daily living. This mobility limitation cannot be sufficiently and safely resolved by the use of cane or walker. The patient is able to safely use a manual wheelchair, which will sufficiently resolve the functional mobility deficits. [email or web address] Not available 06/07/2024 12:21:28 Reason for Referral None Reported. Results Created Date Observation Date Name Description Value Unit Range Abnormal Flag Note LastModifiedBy Organization Detail LastModifiedTime 05/20/19 25 05/20/2024 XR, hip + pelvi s, unila teral No observ ation record ed. [facility] ([facility] [address], [place], [address], 05/20/2024 17:06:53 05/20/19 25 05/20/2024 XR, lumba r spine No observ ation record ed. [facility] [address] [place], [address], 05/21/2024 03:37:01 05/26/19 25 05/26/2024 XR, shoul reina No observ ation record ed. [facility] ([employer]) [address], [place], [address], 05/26/2024 14:38:57 06/02/19 25 06/02/2024 XR, hip + pelvi s, unila teral No observ ation record ed. [email or web address] [address], [place], [address], 06/02/2024 21:30:19 Result Notes None recorded. Procedures Surgical History Date Name Laterality Status Provider Name and Address Organization Details Recorded Time biopsy of breast completed Luda Fulton, [address] [facility], [place], [address], [facility] 05/13/2024 07:04:49 Imaging Results Imaging Date Name Status LastModified by Organiz ation Details LastModified Time 05/20/2024 XR, hip + pelvis, unilateral completed [facility]) [address], [place], [address], 05/20/2024 17:06:53 05/20/2024 XR, lumbar spine completed [email or web address] [facility] [address], [place], [address], 05/21/2024 03:37:01 05/26/2024 XR, shoulder completed [facility] [address], [place], [address], 05/26/2024 14:38:57 06/02/2024 XR, hip + pelvis, unilateral completed [email or web address] [facility] ([employer]) [address], [place], [address], 06/02/2024 21:30:19 Procedure Notes None recorded. Medical Equipment None Reported. Allergies No known drug allergies Medications Name Sig Start Date Stop Date Status Note LastModified by Organization Details LastModified Time Miralax 17 gram oral powder packet Take 1 packet every day by oral route. active Not Available Not Available No t Available acetaminoph en 325 mg tablet Take 2 tablets every 4 hours by oral route as needed. 05/13 completed Not Available Not Available Not Available prednisone 10 mg tablet Take 0.5 tablets twice a day by oral route for 3 days. 05/15 completed Stop Date: 05/13 Not Available Not Available Not Available hydrocodone 5 mg-acetamin ophen 325 mg tablet Take 1 tablet every 4 hours by oral route as needed. 05/13 completed Not Available Not Available Not Available ondansetron HCl 4 mg tablet Take 1 tablet every 6 hours by oral route as needed. active Not Available Not Available No t Available sulfamethox azole 800 mg-trimetho prim 160 mg tablet Take 1 tablet every 12 hours by oral route for 5 days. 06/07 completed Stop Date: 06/05 Not Available Not Available Not Available aspirin 81 mg tablet,connor yed release Take 1 tablet every day by oral route in the morning. active Not Available Not Available No t Available acetaminoph en 500 mg tablet Take 2 tablets 3 times a day by oral route. active Not Available Not Available No t Available famotidine 20 mg tablet Take 1 tablet every day by oral route for 30 days. 05/19 completed Not Available Not Available Not Available tamsulosin 0.4 mg capsule Take 1 capsule every day by oral route. active Not Available Not Available No t Available meclizine 25 mg tablet Take 1 tablet every 8 hours by oral route as needed. active Not Available Not Available No t Available pantoprazol e 40 mg tablet,connor yed release Take 1 tablet twice a day by oral route. active Not Available Not Available No t Available bisacodyl 5 mg tablet,connor yed release Take 1 tablet every day by oral route. active Not Available Not Available No t Available letrozole 2.5 mg tablet Take 1 tablet every day by oral route. active Not Available Not Available No t Available albuterol sulfate HFA 90 mcg/actuati on aerosol inhaler Inhale 2 puffs 4 times a day by inhalatio n route as needed. active Not Available Not Available No t Available amoxicillin 875 mg-potassiu m clavulanate 125 mg tablet Take 1 tablet every 12 hours by oral route. 05/13 completed Not Available Not Available Not Available oxycodone 5 mg tablet Take 1 tablet by mouth every 4 hours as needed. active Not Available Not Available No t Available bisacodyl 5 mg tablet Take 1 tablet every day by oral route in the morning. 05/13 completed Not Available Not Available Not Available Senna Plus 8.6 mg-50 mg tablet Take 1 tablet every day by oral route. active Not Available Not Available No t Available Multivitami n 50 Plus tablet Take 1 tablet every day by oral route. active Not Available Not Available No t Available gabapentin 100 mg tablet Take 2 tablets 3 times a day by oral route. active Not Available Not Available No t Available diclofenac 1 % topical gel Apply 2 g 3 times a day by topical route. active Not Available Not Available No t Available cholecalcif sunshine (vitamin D3) 50 mcg (2,000 unit) tablet Take 1 tablet every day by oral route. active Not Available Not Available No t Available Chlorasepti c Max 15 mg-10 mg lozenges Take 1 lozenge every 4-6 hours by mucous route as needed. active Not Available Not Available No t Available Breo Ellipta 200 mcg-25 mcg/dose powder for inhalation Inhale 1 puff every day by inhalatio n route. active Not Available Not Available No t Available lidocaine HCl 4 % topical patch Apply 1 patch every day by topical route as needed. active Not Available Not Available No t Available Vitals Date Recorded Body height Heart rate Body temperature Respiratory rate Oxygen saturation Oxygen saturation in Arterial blood by Pulse oximetry Inhaled oxygen flow rate Body mass index (BMI) Body weight Systolic blood pressure Diastolic blood pressure Provider Name and Address Organization Details Last Updated DateTime 5 162.56 cm 86 /min 97.8 [degF] 20 /min 94 % 94 % 2 L/min 17.8 kg/m2 17737.8 9 g 132 mm[Hg] 59 mm[Hg] [place] [address] [place], [address], [facility] 5 13:45:21 Date Recorded Body height Heart rate Body temperature Respiratory rate Oxygen saturation Oxygen saturation in Arterial blood by Pulse oximetry Inhaled oxygen flow rate Body mass index (BMI) Body weight Systolic blood pressure Diastolic blood pressure Provider Name and Address Organization Details Last Updated DateTime 5 162.56 cm 86 /min 98 [degF] 18 /min 94 % 94 % 2 L/min 17.7 kg/m2 86903.6 5 g 134 mm[Hg] 64 mm[Hg] Kianna Negro, MARYJANE [address] [place], [address], [place] [employer] [facility] 5 11:40:51 Date Recorded Body height Heart rate Body temperature Respiratory rate Oxygen saturation Oxygen saturation in Arterial blood by Pulse oximetry Inhaled oxygen flow rate Body mass index (BMI) Body weight Systolic blood pressure Diastolic blood pressure Provider Name and Address Organization Details Last Updated DateTime 5 162.56 cm 88 /min 98.5 [degF] 18 /min 93 % 93 % 2 L/min 18 kg/m2 65341.7 6 g 146 mm[Hg] 61 mm[Hg] [place] [address] [place], [address], [place] [facility] 13:37:33 Date Recorded Body height Heart rate Body temperature Respiratory rate Oxygen saturation Oxygen saturation in Arterial blood by Pulse oximetry Body mass index (BMI) Body weight Systolic blood pressure Diastolic blood pressure Provider Name and Address Organization Details Last Updated DateTime 162.56 cm 83 /min 98 [degF] 20 /min 95 % 95 % 17.5 kg/m2 03532.1 4 g 125 mm[Hg] 55 mm[Hg] [place] [address] [place], [address], [place] [facility] 13:46:55 Date Recorded Body height Heart rate Body temperature Respiratory rate Oxygen saturation Oxygen saturation in Arterial blood by Pulse oximetry Body mass index (BMI) Body weight Systolic blood pressure Diastolic blood pressure Provider Name and Address Organization Details Last Updated DateTime 162.56 cm 89 /min 98 [degF] 20 /min 98 % 98 % 17.4 kg/m2 25810.2 7 g 114 mm[Hg] 48 mm[Hg] [place] [address] [place], [address], [facility] 11:32:37 Social History Question Answer Notes LastModified by Organizat ion Details LastModified Time Tobacco Smoking Status Current Every Day Smoker Gabino An null, [facility] 05/08/2024 20:37:01 What Is Your Level Of Alcohol Consumption? None Information not available 05/08/2024 What Is Your Code Status? DNR Information not available 05/08/2024 What Is Your Relationship Status? Information not available 05/08/2024 How Much Tobacco Do You Smoke? 1 PPD Information not available 05/08/2024 Do You Use Any Illicit Or Recreational Drugs? No Information not available 05/08/2024 Sex: Unknown Functional Status None recorded. Mental Status None recorded. Family History Relationship Description Onset Age of this Age Resolved Age Notes LastModified by Organization Details LastModified Time Mother Malignant neoplasm of uterus [email or web address] Not available 2024 10:00:09 Medical History Condition Response Stroke (CVA) Y Cancer -- Breast Y COPD Y GERD / Reflux Y Gynecological HistoryNo gynecological history recorded. Obstetrics History GPAL:G 0 P 0 0 0 0 Past Encounters Encounter ID Performer Location Encounter Start Date Encounter Closed Date Diagnosis/Indication Diagnosis SNOMED-CT Code Diagnosis ICD10 Code Diagnosis Note [id number] Luda Kirstin, DO [address] [address] 05/11/2024 00:00:22 06/02/2024 11:25:53 Bronchiectasis 20007075 J47.[address] was consistent with thisthe patient was treated with IV rocephin and oral doxycyclin e during her hospitaliz ation - [facility] prednisone taperconti nue incentive spirometry and prn albuterolm onitor for need to place on routine inhalerswe an supplement al O2 as able Fracture o f ramus of pubis 4104434988 S32.501D related to a mechanical fall at her home 04/23orthop edics evaluated the patient and recommende d non operative management she is WBAT to the LEcontinue prn pain medscontin ue topical lidodermco ntinue therapieso utpatient fu with orthopedic s 4-6 weeks - [facility] appointmen t needs to be scheduled Acute urin yasir tract infection 161088749 N39.0 urine culture from 04/23 grew ecoli and aerococcus - she was treated with rocephin and oral augmentin History of malignant neoplasm of breast 088016139 Z85.3 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 Reymundo Lee History of cerebrovascular accident 513388662 Z86.73 with reported carotic stenosisth e patient continues ASA - unclear if she was also recommende d to take plavix/sta tins - she has been non compliant with prescripti on medication s and follow-up related to thiswill encourage PCP establishm ent upon d/c from to further coordinate /continue to address Physical deconditioning 1373931918 9102 R68.89 related to advanced age, recent fall/hospi talization stherapies have been initiated - will monitor progress. The patient plans to return home alone upon d/c from [id number] Kianna Negro NP [address] [address] 05/13/2024 13:02:49 06/02/2024 11:20:34 Bronchiectasis 37116499 J47.[address] was consistent with this. Treated with IV rocephin and oral doxycyclin e during her hospitaliz ation. Antibiotic s were completed prior to transfer to .Continu es on a prednisone taper.Cont inue incentive spirometry and prn albuterol. Monitor for need to place on routine inhalers.W joleen supplement al O2 as able. Acute exac erbation of chronic obstructive pulmonary disease 884285819 J44.1 SEE ABOVE...Co ntinue prednisone taper.Anti biotics completed during her inpatent stay.Mnito r for need for nicotine replacemen t therapy. Denies needing today. Fracture o f ramus of pubis 1540517640 S32.501D Related to a mechanical fall at her home 04/23.Ortho pedics evaluated the patient and recommende d non operative management .WBAT to BLE.Schedu le APAP TID and change PRN [place] to Oxycodone to avoid going over APAP limit.Cont inue lidocaine patches.Co ntinue therapies. Outpatient f/u with orthopedic s in 4-6 weeks. Acute urin yasir tract infection 490816295 N39.0 Urine culture from 04/23 grew ecoli and aerococcus .She was treated with Rocephin and oral Augmentin. 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 Patient declined surgery or aggressive chemo (taxol and trastuzuma b recommende d). She had been taking tykerb 1000 mg daily prior to her hospitaliz ation but this has been held since her initial admit in mid April 2024.Amrita nue Letrozole daily.Outp atient f/u with oncology after discharge from rehab with Dr. Lee (she was due for f/u in April but missed appt due to recent hospitaliz ations/molly ab stay). Gastroesop hageal reflux disease without esophagitis 393062548 K21.9 Stable. Continue PPI. Constipation 40721000 K5 9.00 Stable. Continue routine bisacodyl and Miralax.Ad ditional meds available per standing orders. Mass of le ft adrenal gland 4378020076 4769584 E27.8 Concerning for metastatic disease from breast cancer. Oncology is aware of this lesion and monitoring , as it was seen on PET scanning done in August 2023.f/u as scheduled with Dr. Reymundo Lee. History of cerebrovascular accident 489560771 Z86.73 with reported carotic stenosis.C ontinue ASA - unclear if she was also recommende d to take plavix/sta tins. She has been noncomplia nt with prescripti on medication s and follow-up related to this.Encou rage PCP establishm ent upon d/c from to further coordinate /continue to address. Physical deconditioning 4966958567 9102 R68.89 Related to advanced age, recent fall/hospi talization s.Continue therapies and monitor progress. The patient plans to return home alone upon d/c from . Acute hypo xemic respiratory failure 558719254 J96.01 SEE ABOVE... [id number] Kianna Negro NP [address] [place] [address] 05/15/2024 10:42:09 06/02/2024 11:21:26 Bronchiectasis 92086134 J47.[address] was consistent with this. Treated with IV rocephin and oral doxycyclin e during her hospitaliz ation. Antibiotic s were completed prior to transfer to .Complet ed prednisone taper on 05/13.Adding Breo daily today -- have chosen Breo for once daily dosing in order to promote patient compliance as OP (rather than BID dosing).Co ntinue incentive spirometry and prn albuterol. Wean supplement al O2 as able. Presently on 2L NC. Acute exac erbation of chronic obstructive pulmonary disease 102493071 J44.1 SEE ABOVE...Co mpleted prednisone taper on 05/13.Antibi otics completed during her inpatent stay.Monit or for need for nicotine replacemen t therapy. Denies needing today. Acute hypo xemic respiratory failure 554455843 J96.01 SEE ABOVE... Fracture o f ramus of pubis 5785617791 S32.501D Related to a mechanical fall at her home 04/23. Orthopedic s evaluated the patient and recommende d non operative management .WBAT to BLE.Pain is severe and not well-contr olled despite scheduling APAP TID and transition ing PRN [place] to Oxycodone. Schedule Oxycodone 5x/day. Continue PRN dosing as is in addition to this. Hold and report sedation.C ontinue lidocaine patches.Co ntinue therapies -- pt has not been tolerating well due to uncontroll ed pain.Outpa tient f/u with orthopedic s in 4-6 weeks. Acute urin yasir tract infection 583764983 N39.0 Urine culture from 04/23 grew ecoli and aerococcus .She was treated with Rocephin and oral Augmentin. Monitor for recurrence . 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 Patient declined surgery or aggressive chemo (taxol and trastuzuma b recommende d). She had been taking tykerb 1000 mg daily prior to her hospitaliz ation but this has been held since her initial admit in mid April 2024.Amrita nue Letrozole daily.Outp atient f/u with oncology after discharge from rehab with Dr. Lee (she was due for f/u in April but missed appt due to recent hospitaliz ations/molly ab stay). Gastroesop hageal reflux disease without esophagitis 474367724 K21.9 Stable. Continue PPI. Constipation 75274325 K5 9.00 Stable. Continue routine bisacodyl and Miralax.Ad ditional meds available per standing orders. Mass of le ft adrenal gland 5935449584 3591658 E27.8 Concerning for metastatic disease from breast cancer. Oncology is aware of this lesion and monitoring , as it was seen on PET scanning done in August 2023.f/u as scheduled with Dr. Reymundo Lee. History of cerebrovascular accident 288561553 Z86.73 with reported carotic stenosis.C ontinue ASA - unclear if she was also recommende d to take plavix/sta tins. She has been noncomplia nt with prescripti on medication s and follow-up related to this.Encou rage PCP establishm ent upon d/c from to further coordinate /continue to address. Physical deconditioning 1747460472 9102 R68.89 Related to advanced age, recent fall/hospi talization s.Continue therapies and monitor progress. The patient plans to return home alone upon d/c from . Dizziness 300809780 R42 Cause unclear, describes as vertigo sensation. Room spins upon sitting upright.Re quested daily orthostati cs.Added PRN Meclizine. [id number] Kianna Negro NP [address] [place] [address] 05/19/2024 10:18:55 06/02/2024 11:22:01 Fracture of ramus of pubis 2749640248 S32.501D Related to a mechanical fall at her home 04/23. Orthopedic s evaluated the patient and recommende d non operative management .WBAT to BLE.Contin ue lidocaine patches, APAP, and PRN Oxycodone. Adding Gabapentin .Continue therapies -- pt has not been tolerating well due to uncontroll ed pain.Outpa tient f/u with orthopedic s in 4-6 weeks -- needs to be scheduled. Bronchiectasis 95774576 J47.[address] was consistent with this. Treated with IV rocephin and oral doxycyclin e during her hospitaliz ation. Antibiotic s were completed prior to transfer to .Complet ed prednisone taper on 05/13.Added Breo daily.Cont inue incentive spirometry and prn albuterol. Wean supplement al O2 as able. Presently on 2L NC. Acute exac erbation of chronic obstructive pulmonary disease 295804057 J44.1 SEE ABOVE...Co mpleted prednisone taper on 05/13.Antibi otics completed during her inpatient stay.Monit or for need for nicotine replacemen t therapy. Denies needing today. Acute hypo xemic respiratory failure 100718332 J96.01 SEE ABOVE... Dizziness 154540610 R42 Cause unclear, describes as vertigo sensation. Room spins upon sitting upright.Re quested daily orthostati cs.Continu e PRN Meclizine. Acute urin yasir tract infection 300873644 N39.0 Urine culture from 04/23 grew ecoli and aerococcus .She was treated with Rocephin and oral Augmentin. Urinary retention has recurred. Have collected UA. High suspicion for recurrence . History of malignant neoplasm of breast 674007206 Z85.3 Triple positive metastatic ductal carcinoma of the right breast diagnosed by biopsy on 07/19/2023. Patient declined surgery or aggressive chemo (taxol and trastuzuma b recommende d). She had been taking tykerb 1000 mg daily prior to her hospitaliz ation but this has been held since her initial admit in mid April 2024.Amrita nue Letrozole daily.Outp atient f/u with oncology after discharge from rehab with Dr. Lee (she was due for f/u in April but missed appt due to recent hospitaliz ations/molly ab stay). Gastroesop hageal reflux disease without esophagitis 016872166 K21.9 Stable. Continue PPI. D/C Famotidine . Constipation 06514954 K5 9.00 Stable. Continue routine bisacodyl and Miralax.Ad ditional meds available per standing orders. Mass of le ft adrenal gland [id number] 3074216 E27.8 Concerning for metastatic disease from breast cancer. Oncology is aware of this lesion and monitoring , as it was seen on PET scanning done in August 2023.f/u as scheduled with Dr. Reymundo Lee. History of cerebrovascular accident 234696283 Z86.73 with reported carotic stenosis.C ontinue ASA - unclear if she was also recommende d to take plavix/sta tins. She has been noncomplia nt with prescripti on medication s and follow-up related to this.Encou rage PCP establishm ent upon d/c from to further coordinate /continue to address. Physical deconditioning 8923602162 9102 R68.89 Related to advanced age, recent fall/hospi talization s.Continue therapies and monitor progress. The patient plans to return home alone upon d/c from . Left side sciatica 74152 79158 54500 M54.32 Without coinciding lumbar spine or right sided concerns. Likely related to recent fall with pelvic fractures. Start Gabapentin 100 mg PO TID.Contin ue routine APAP & PRN Oxycodone. Retention of urine 65771 4002 R33.9 Straight cath yielded 1 L of urine. UA sample collected. Place zeng catheter. [id number] Kianna Negro NP [address] [address] 05/21/2024 11:32:34 06/02/2024 11:22:46 Fracture of ramus of pubis 9200337208 S32.501D Related to a mechanical fall at her home 04/23. Orthopedic s evaluated the patient and recommende d non operative management .WBAT to BLE.Contin ue lidocaine patches, APAP, Gabapentin , and PRN Oxycodone. Continue therapies. Outpatient f/u with orthopedic s in 4-6 weeks -- needs to be scheduled. Left side sciatica 49616 44090 47662 M54.32 Without coinciding lumbar back pain. No concerns on right. Likely related to recent fall with pelvic fractures. XR ruled out acute fracture of lumbar spine, did show DDD.Contin ue Gabapentin (new), routine APAP & PRN Oxycodone. Retention of urine 99434 4002 R33.9 Straight cath yielded 1 L of urine.Plac ed zeng catheter on 05/19.UA was clear, did not reflex to cx.Add Tamsulosin . Will need voiding trial at later date. Acute urin yasir tract infection 304587843 N39.0 Urine culture from 04/23 grew ecoli and aerococcus .She was treated with Rocephin and oral Augmentin. Urinary retention has recurred. Repeat UA was clear, however, and did not meet reflex criteria. Bronchiectasis 53898214 J47.[address] was consistent with this. Treated with IV rocephin and oral doxycyclin e during her hospitaliz ation. Antibiotic s were completed prior to transfer to .Complet ed prednisone taper on 05/13.Added Breo daily.Cont inue incentive spirometry and prn albuterol. Wean supplement al O2 as able. Presently on 2L NC. Acute exac erbation of chronic obstructive pulmonary disease 304300820 J44.1 SEE ABOVE...Co mpleted prednisone taper on 05/13.Antibi otics completed during her inpatient stay.Monit or for need for nicotine replacemen t therapy. Denies needing today. Acute hypo xemic respiratory failure 442587214 J96.01 SEE ABOVE... Dizziness 101427721 R42 Cause unclear, describes as vertigo sensation. Room spins upon sitting upright. She says it doesn't occur if she eats a small candy bar before getting out of bed -- has done this for years.Cont inue PRN Meclizine. 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 Patient declined surgery or aggressive chemo (taxol and trastuzuma b recommende d). She had been taking tykerb 1000 mg daily prior to her hospitaliz ation but this has been held since her initial admit in mid April 2024.Amrita nue Letrozole daily.Outp atient f/u with oncology after discharge from rehab with Dr. Lee (she was due for f/u in April but missed appt due to recent hospitaliz ations/molly ab stay). Gastroesop hageal reflux disease without esophagitis 098218900 K21.9 Stable. Continue PPI. Constipation 52722757 K5 9.00 Stable. Continue routine bisacodyl and Miralax.Ad ditional meds available per standing orders. Mass of le ft adrenal gland 6930663304 2273932 E27.8 Concerning for metastatic disease from breast cancer. Oncology is aware of this lesion and monitoring , as it was seen on PET scanning done in August 2023.f/u as scheduled with Dr. Reymundo Lee. History of cerebrovascular accident 859786880 Z86.73 with reported carotic stenosis.C ontinue ASA - unclear if she was also recommende d to take plavix/sta tins. She has been noncomplia nt with prescripti on medication s and follow-up related to this.Encou rage PCP establishm ent upon d/c from to further coordinate /continue to address. Physical deconditioning 8400549749 9102 R68.89 Related to advanced age, recent fall/hospi talization s.Continue therapies and monitor progress. The patient plans to return home alone upon d/c from . Degenerati on of lumbar intervertebral disc 05407644 M51.369 SEE ABOVE... [id number] Kianna Negro NP [address] [address] 05/26/2024 09:26:00 06/02/2024 11:23:34 Fracture of ramus of pubis 6683399660 S32.501D Related to a mechanical fall at her home 04/23. Orthopedic s evaluated the patient and recommende d non operative management .WBAT to BLE.Contin ue lidocaine patches, APAP, Gabapentin , and PRN Oxycodone. Continue therapies. Outpatient f/u with orthopedic s in 4-6 weeks -- needs to be scheduled. Left side sciatica 92951 89664 91317 M54.32 Without coinciding lumbar back pain. No concerns on right. Likely related to recent fall with pelvic fractures. XR ruled out acute fracture of lumbar spine, did show DDD.Contin ue Gabapentin (new), routine APAP & PRN Oxycodone. Degenerati on of lumbar intervertebral disc 10023407 M51.369 SEE ABOVE... Retention of urine 47611 4002 R33.9 Straight cath yielded 1 L of urine. Placed zeng catheter on 05/19.UA was clear, did not reflex to cx.Added Tamsulosin .Reattempt voiding trial.Repe at UA as urine has areas concerning for purulence. Acute urin yasir tract infection 131549951 N39.0 Urine culture from 04/23 grew E. coli and Aerococcus .She was treated with Rocephin and oral Augmentin. Urinary retention recurred.S EE ABOVE... Bronchiectasis 02678875 J47.[address] was consistent with this. Treated with IV rocephin and oral doxycyclin e during her hospitaliz ation. Antibiotic s were completed prior to transfer to .Complet ed prednisone taper on 05/13.Added Breo daily.Cont inue incentive spirometry and prn albuterol. Wean supplement al O2 as able. Presently on 2L NC. Acute exac erbation of chronic obstructive pulmonary disease 059313923 J44.1 SEE ABOVE...Co mpleted prednisone taper on 05/13.Antibi otics completed during her inpatient stay.Monit or for need for nicotine replacemen t therapy. Denies needing today. Acute hypo xemic respiratory failure 554280263 J96.01 SEE ABOVE... Dizziness 722559296 R42 Cause unclear, describes as vertigo sensation. Room spins upon sitting upright. She says it doesn't occur if she eats a small candy bar before getting out of bed -- has done this for years.Cont inue PRN Meclizine. 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 Patient declined surgery or aggressive chemo (taxol and trastuzuma b recommende d). She had been taking tykerb 1000 mg daily prior to her hospitaliz ation but this has been held since her initial admit in mid April 2024.Amrita nue Letrozole daily.Outp atient f/u with oncology after discharge from rehab with Dr. Lee (she was due for f/u in April but missed appt due to recent hospitaliz ations/molly ab stay). Gastroesop hageal reflux disease without esophagitis 589089646 K21.9 Stable. Continue PPI. Constipation 00860933 K5 9.00 Stable. Continue routine bisacodyl and Miralax.Ad ditional meds available per standing orders. Mass of le ft adrenal gland 2165485474 3067269 E27.8 Concerning for metastatic disease from breast cancer. Oncology is aware of this lesion and monitoring , as it was seen on PET scanning done in August 2023.f/u as scheduled with Dr. Reymundo Lee. History of cerebrovascular accident 805879809 Z86.73 with reported carotic stenosis.C ontinue ASA - unclear if she was also recommende d to take plavix/sta tins. She has been noncomplia nt with prescripti on medication s and follow-up related to this.Encou rage PCP establishm ent upon d/c from to further coordinate /continue to address. Physical deconditioning 9476786156 9102 R68.89 Related to advanced age, recent fall/hospi talization s.Continue therapies and monitor progress. The patient plans to return home alone upon d/c from . Fall .XXXA SEE ABOVE...Fa ll precaution s are in place. Pain of ri ght shoulder joint 3107260550 9246385 M25.511 Present since if not before hospitaliz ation. Reports pain is worse since fall on 05/24. Obtained XR, which did not show any acute injury/fra cture, only mild arthritis. Continue lidocaine patches, APAP, Gabapentin , and PRN Oxycodone. Continue therapies. [id number] Kianna Negro NP [address] [address] 05/28/2024 10:40:50 06/02/2024 11:24:18 Pain of right shoulder joint 9926316577 4558100 M25.511 Present since (if not before) hospitaliz ation. Reports pain is worse since fall on 05/24. Obtained XR, which did not show any acute injury/fra cture, only mild arthritis. Continue lidocaine patches, APAP, Gabapentin , and PRN Oxycodone. Continue therapies. Fall W1.XXXA SEE ABOVE...Fa ll precaution s are in place. Fracture o f ramus of pubis 7063596179 S32.501D Related to a mechanical fall at her home 04/23. Orthopedic s evaluated the patient and recommende d non operative management .WBAT to BLE.Contin ue lidocaine patches, APAP, Gabapentin , and PRN Oxycodone. Continue therapies. Outpatient f/u with orthopedic s in 4-6 weeks -- TRENA is aware and working on this today. Left side sciatica 14886 93485 68845 M54.32 Without coinciding lumbar back pain. No concerns on right. Likely related to recent fall with pelvic fractures. XR ruled out acute fracture of lumbar spine, did show DDD.Contin ue Gabapentin (new), routine APAP & PRN Oxycodone. Degenerati on of lumbar intervertebral disc 61723672 M51.369 SEE ABOVE... Retention of urine 45613 4002 R33.9 Straight cath yielded 1 L of urine. Placed zeng catheter on 05/19.UA was clear, did not reflex to cx.Added Tamsulosin .Reattempt ed voiding trial with success on 05/26. Has been voiding without concerns since.Repe at UA was sent on 05/26 due to possible purulence of urine. Acute urin yasir tract infection 518966327 N39.0 Urine culture from 04/23 grew E. coli and Aerococcus .She was treated with Rocephin and oral Augmentin. Urinary retention recurred.S EE ABOVE... Bronchiectasis 11099036 J47.[address] was consistent with this. Treated with IV rocephin and oral doxycyclin e during her hospitaliz ation. Antibiotic s were completed prior to transfer to .Complet ed prednisone taper on 05/13.Added Breo daily.Cont inue incentive spirometry and prn albuterol. Wean supplement al O2 as able. Presently on 2L NC. Acute exac erbation of chronic obstructive pulmonary disease 334015821 J44.1 SEE ABOVE...Co mpleted prednisone taper on 05/13.Antibi otics completed during her inpatient stay.Was smoking up to recent hospitaliz ation. Monitor for need for nicotine replacemen t therapy. Denies needing today. Acute hypo xemic respiratory failure 590033556 J96.01 SEE ABOVE... Dizziness 495685281 R42 Cause unclear, describes as vertigo sensation. Room spins upon sitting upright. She says it doesn't occur if she eats a small candy bar before getting out of bed -- has done this for years.Cont inue PRN Meclizine. 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 Patient declined surgery or aggressive chemo (taxol and trastuzuma b recommende d). She had been taking tykerb 1000 mg daily prior to her hospitaliz ation but this has been held since her initial admit in mid April 2024.Amrita nue Letrozole daily.Outp atient f/u with oncology after discharge from rehab with Dr. Lee (she was due for f/u in April but missed appt due to recent hospitaliz ations/molly ab stay). Gastroesop hageal reflux disease without esophagitis 053539715 K21.9 Stable. Continue PPI. Constipation 54828984 K5 9.00 Stable. Continue routine bisacodyl and Miralax.Ad ditional meds available per standing orders. Mass of le ft adrenal gland 1264016210 8901295 E27.8 Concerning for metastatic disease from breast cancer. Oncology is aware of this lesion and monitoring , as it was seen on PET scanning done in August 2023.f/u as scheduled with Dr. Reymundo Lee. History of cerebrovascular accident 586417707 Z86.73 with reported carotic stenosis.C ontinue ASA - unclear if she was also recommende d to take plavix/sta tins. She has been noncomplia nt with prescripti on medication s and follow-up related to this.Viktoria moran PCP establishm ent upon d/c from to further coordinate /continue to address. Physical deconditioning 0946392715 9102 R68.89 Related to advanced age, recent fall/hospi talization s.Continue therapies and monitor progress. The patient plans to return home alone upon d/c from . [id number] Kianna Negro NP [address] [address] 05/30/2024 13:06:42 06/02/2024 11:25:03 Pain of right shoulder joint 0496896854 9935742 M25.511 Present since (if not before) hospitaliz ation. Reports pain is worse since fall on 05/24. Obtained XR, which did not show any acute injury/fra cture, only mild arthritis. Continue lidocaine patches, APAP, Gabapentin , and PRN Oxycodone. Continue therapies. Fall W19.XXXA SEE ABOVE...Fa ll precaution s are in place. Fracture o f ramus of pubis 2035454031 S32.501D Related to a mechanical fall at her home 04/23. Orthopedic s evaluated the patient and recommende d non operative management .WBAT to BLE.Contin ue lidocaine patches, APAP, Gabapentin , and PRN Oxycodone. Continue therapies. F/u with Dr. Moreno (ortho) on 06/04. Left side sciatica 46148 02847 46167 M54.32 Without coinciding lumbar back pain. No concerns on right. Likely related to recent fall with pelvic fractures. XR ruled out acute fracture of lumbar spine, did show DDD.Contin ue Gabapentin (new), routine APAP & PRN Oxycodone. Degenerati on of lumbar intervertebral disc 03472269 M51.369 SEE ABOVE... Retention of urine 04269 4002 R33.9 Straight cath yielded 1 L of urine. Placed zeng catheter on 05/19.UA was clear, did not reflex to cx.Added Tamsulosin .Reattempt ed voiding trial with success on 05/26. Has been voiding without concerns since.Repe at UA was sent on 05/26 due to possible purulence of urine. Acute urin yasir tract infection 113436761 N39.0 Urine culture from 04/23 grew E. coli and Aerococcus .She was treated with Rocephin and oral Augmentin. Urinary retention recurred.S EE ABOVE... Bronchiectasis 96648015 J47.[address] was consistent with this. Treated with IV rocephin and oral doxycyclin e during her hospitaliz ation. Antibiotic s were completed prior to transfer to .Complet ed prednisone taper on 05/13.Added Breo daily.Cont inue incentive spirometry and prn albuterol. Wean supplement al O2 as able. Presently on 2L NC. Acute exac erbation of chronic obstructive pulmonary disease 197451114 J44.1 SEE ABOVE...Co mpleted prednisone taper on 05/13.Antibi otics completed during her inpatient stay.Was smoking up to recent hospitaliz ation. Monitor for need for nicotine replacemen t therapy. Denies needing today. Acute hypo xemic respiratory failure 598952313 J96.01 SEE ABOVE... Dizziness 032425046 R42 Cause unclear, describes as vertigo sensation. Room spins upon sitting upright. She says it doesn't occur if she eats a small candy bar before getting out of bed -- has done this for years.Cont inue PRN Meclizine. 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 Patient declined surgery or aggressive chemo (taxol and trastuzuma b recommende d). She had been taking tykerb 1000 mg daily prior to her hospitaliz ation but this has been held since her initial admit in mid April 2024.Amrita nue Letrozole daily.Outp atient f/u with oncology after discharge from rehab with Dr. Lee (she was due for f/u in April but missed appt due to recent hospitaliz ations/molly ab stay). Gastroesop hageal reflux disease without esophagitis 749499700 K21.9 Episode of indigestio n this morning likely. Has had prior concerns with Pepcid added but then later stopped. It appears she has been requesting PRN Zofran nightly after dinner. Will increase Pantoprazo le to BID and monitor. Constipation 53688516 K5 9.00 Stable. Continue routine bisacodyl and Miralax.Ad ditional meds available per standing orders. Mass of le ft adrenal gland 7987208763 3666888 E27.8 Concerning for metastatic disease from breast cancer. Oncology is aware of this lesion and monitoring , as it was seen on PET scanning done in August 2023.f/u as scheduled with Dr. Reymundo Lee. History of cerebrovascular accident 817595168 Z86.73 with reported carotic stenosis.C ontinue ASA - unclear if she was also recommende d to take plavix/sta tins. She has been noncomplia nt with prescripti on medication s and follow-up related to this.Encou rage PCP establishm ent upon d/c from to further coordinate /continue to address. Physical deconditioning 4547947541 9102 R68.89 Related to advanced age, recent fall/hospi talization s.Continue therapies and monitor progress. The patient plans to return home alone upon d/c from . [id number] Kianna Negro NP [address] [place] [address] 06/03/2024 10:56:32 06/16/2024 22:22:29 Acute urinary tract infection 894807836 N39.0 Urine culture from 04/23 grew E. coli and Aerococcus . She was treated with Rocephin and oral Augmentin while inpatient. Urinary retention recurred.I nitial UA was normal, did not meet reflex criteria on 05/19. However, when went to attempt voiding trial again on 05/27, I noted purulence in her zeng. Obtained UA. Did pass voiding trial this time. Urine cx ultimately grew >100,000 Enterobact er cloacae.Tr eating with Bactrim, will complete course on 06/05.Amrita nue to monitor as OP. Gastroesop hageal reflux disease without esophagitis 908966218 K21.9 Improved with increase of Pantoprazo le to 40 mg BID. Continue PRN Zofran, as well. Pain of ri ght shoulder joint 5515272607 6073265 M25.511 [facility] Reports pain is worse since fall on 05/24. Obtained XR on 05/26, which did not show any acute injury/fra cture, only mild arthritis at glenohumer al joint and AC joint.Cont inue routine APAP, Gabapentin , and PRN Oxycodone & Voltaren gel.Pt will see ortho Dr. Moreno on 06/04. Fall W19.XXXA SEE ABOVE...Fa ll precaution s are in place. Fracture o f ramus of pubis 2148132528 S32.501D Related to a mechanical fall at her home 04/23. Orthopedic s evaluated the patient and recommende d non operative management .WBAT to BLE.Contin ue routine APAP, Gabapentin , and PRN Oxycodone & Voltaren gel.F/u with Dr. Moreno (ortho) on 06/04. Left side sciatica 90155 58259 79247 M54.32 Without coinciding lumbar back pain. No concerns on right. Likely related to recent fall with pelvic fractures. XR ruled out acute fracture of lumbar spine, did show DDD.Contin ue Gabapentin , routine APAP & PRN Oxycodone. Degenerati on of lumbar intervertebral disc 41343133 M51.369 SEE ABOVE... Retention of urine 08326 4002 R33.9 Straight cath yielded 1 L of urine. Placed zeng catheter on 05/19.Added Tamsulosin .Reattempt ed voiding trial with success on 05/26. Has been voiding without concerns since. Bronchiectasis 09238729 J47.[address] was consistent with this. Treated with IV rocephin and oral doxycyclin e during her hospitaliz ation. Antibiotic s were completed prior to transfer to .Complet ed prednisone taper on 05/13.Added Breo daily.Cont inue incentive spirometry and prn albuterol. Wean supplement al O2 as able. Presently on 2L NC. Therapy will be conducting oxygen study for need at discharge. Acute exac erbation of chronic obstructive pulmonary disease 126438125 J44.1 SEE ABOVE...Co mpleted prednisone taper on 05/13.Antibi otics completed during her inpatient stay.Was smoking up to recent hospitaliz ation. Pt has denied need for nicotine replacemen t therapy.Co ntinue to encourage to not resume smoking upon discharge. Acute hypo xemic respiratory failure 586523231 J96.01 SEE ABOVE... Dizziness 809961895 R42 Cause unclear, describes as vertigo sensation. Room spins upon sitting upright. She says it doesn't occur if she eats a small candy bar before getting out of bed -- has done this for years.Cont inue PRN Meclizine. 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 Patient declined surgery or aggressive chemo (taxol and trastuzuma b recommende d). She had been taking tykerb 1000 mg daily prior to her hospitaliz ation but this has been held since her initial admit in mid April 2024.Amrita nue Letrozole daily.Outp atient f/u with oncology after discharge from rehab with Dr. Lee (she was due for f/u in April but missed appt due to recent hospitaliz ations/molly ab stay). Constipation 81545768 K5 9.00 Stable. Continue routine bisacodyl and Miralax.Ad ditional meds available per standing orders. Mass of le ft adrenal gland 6121060329 1784441 E27.8 Concerning for metastatic disease from breast cancer. Oncology is aware of this lesion and monitoring , as it was seen on PET scanning done in August 2023.f/u as scheduled with Dr. Reymundo Lee. History of cerebrovascular accident 074865947 Z86.73 with reported carotic stenosis.C ontinue ASA - unclear if she was also recommende d to take plavix/sta tins. She has been noncomplia nt with prescripti on medication s and follow-up related to this.Encou rage PCP establishm ent upon d/c from to further coordinate /continue to address. [id number] Kianna Negro NP [address] [place] [address] 06/06/2024 17:13:43 06/16/2024 22:23:21 Pain of right shoulder joint 3454048263 4615772 M25.511 Present since (if not before) hospitaliz ation. Reports pain is worse since fall on 05/24. Obtained XR on 05/26, which did not show any acute injury/fra cture, only mild arthritis at glenohumer al joint and AC joint. Examinatio n reveals this appears to be a rotator cuff injury. Orthopedic evaluated on 06/04 and was in agreement with assessment , recommende d supportive treatment and continued therapies. Continue routine APAP, Gabapentin , and PRN Oxycodone & Voltaren gel.F/U with ortho Dr. Moreno as OP as directed. Acute urin yasir tract infection 949827638 N39.0 Urine culture from 04/23 grew E. coli and Aerococcus . She was treated with Rocephin and oral Augmentin while inpatient. Urinary retention recurred.I nitial UA was normal, did not meet reflex criteria on 05/19. However, when went to attempt voiding trial again on 05/27, I noted purulence in her urine in her zeng tubing. Repeat urine cx ultimately grew >100,000 Enterobact er cloacae. Did pass voiding trial this time with removal on 05/26.Treat ed with Bactrim, course completed on 06/05.Amrita nue to monitor as OP. Retention of urine [id number] R33.9 Straight cath yielded 1 L of urine. Placed zeng catheter on 05/19.Added Tamsulosin .Reattempt ed voiding trial with success on 05/26. Has been voiding without concerns since. Fracture o f ramus of pubis [id number] S32.501D Related to a mechanical fall at her home 04/23. Orthopedic s evaluated the patient and recommende d non operative management .WBAT to BLE.Contin ue routine APAP, Gabapentin , and PRN Oxycodone & Voltaren gel.F/U with ortho Dr. Moreno as OP as directed. Last seen on 06/04 with NNO. Left side sciatica [id number] M54.32 Without coinciding lumbar back pain. No concerns on right. Likely related to recent fall with pelvic fractures. XR ruled out acute fracture of lumbar spine, did show DDD.Contin ue Gabapentin , routine APAP & PRN Oxycodone. Degenerati on of lumbar intervertebral disc [id number] M51.369 SEE ABOVE... Bronchiectasis 17717003 J47.[address] was consistent with this. Treated with IV Rocephin and oral Doxycyclin e during her hospitaliz ation. Antibiotic s were completed prior to transfer to .Complet ed prednisone taper on 05/13.Added Breo daily.Cont inue incentive spirometry and prn albuterol. Oxygen study performed and pt qualifies for continuous O2 at 2L per NC at discharge -- pt desaturate d to 88% on room air at rest. Acute exac erbation of chronic obstructive pulmonary disease [id number] J44.1 SEE ABOVE... Acute hypo xemic respiratory failure 542807580 J96.01 SEE ABOVE... Gastroesop hageal reflux disease without esophagitis 647036158 K21.9 Improved with increase of Pantoprazo le to 40 mg BID. Continue PRN Zofran, as well. Dizziness [id number] R42 Cause unclear, describes as vertigo sensation. Room spins upon sitting upright. She says it doesn't occur if she eats a small candy bar before getting out of bed -- has done this for years.Cont inue PRN Meclizine. 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 Patient declined surgery or aggressive chemo (taxol and trastuzuma b recommende d). She had been taking tykerb 1000 mg daily prior to her hospitaliz ation but this has been held since her initial admit in mid April 2024.Amrita nucecy Letrozole daily.Outp atient f/u with oncology after discharge from rehab with Dr. Lee (she was due for f/u in April but missed appt due to recent hospitaliz ations/molly ab stay). Constipation [id number] K5 9.00 Stable. Continue routine bisacodyl and Miralax.Ad ditional meds available per standing orders. Mass of le ft adrenal gland [id number] E27.8 Concerning for metastatic disease from breast cancer. Oncology is aware of this lesion and monitoring , as it was seen on PET scanning done in August 2023.f/u as scheduled with Dr. Reymundo Lee. History of cerebrovascular accident [id number] Z86.73 with reported carotic stenosis.C ontinue ASA - unclear if she was also recommende d to take plavix/sta tins. She has been noncomplia nt with prescripti on medication s and follow-up related to this.Encou rage PCP establishm ent upon d/c from to further coordinate /continue to address. Fall W19.XXXA Fall precaution s are in place. 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 Tobacco user 032480694 Z 72.0 Was smoking up to recent hospitaliz ation. Pt has denied need for nicotine replacemen t therapy.Co ntinue to encourage to not resume smoking upon discharge. Health Concerns Section Related Observation LastModified by Organization Detai ls LastModified Time None Recorded Concern Status LastModified by Organization Details LastModified Time None Recorded Advance Directives Directive None Recorded Payers Encounter Date Sequence Insurance Name Policy Number Policy Edouard Covered Member ID Edouard Member ID Guarantor Name 05/26/2024 1 [place] Valeria Deutsch [id number] 1 Valeria Deutsch 05/28/2024 1 [place] Valeria Deutsch [id number] 1 Valeria Deutsch 05/30/2024 1 [place] Valeria Deutsch [id number] 1 Valeria Deutsch 06/03/2024 1 [place]) Valeria Deutsch [id number] 1 Valeria Deutsch 06/06/2024 1 [place] Valeria Deutsch [id number] 1 Valeria Deutsch Notes Date Note Type Note Provider Name and Address Organization Details Recorded Time 05/26/2024 text/html F/U fall with ri ght superior & inferior pubic rami fractures, acute hypoxemic respiratory failure sec to COPD exacerbation with current tobacco use, known breast cancer (treating with oral chemo), abd pain sec to constipation, and chronic medical conditions.---05/10/24T he patient lives alone in a home in [place]. 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 She has a son and daughter in law who live in [facility]. The patient does not have a PCP. She has been diagnosed with breast cancer in the last year but is not interested in aggressive treatment of this - she does still follow with oncology. She also had a stroke in the last year (she denies significant residual deficits) and reports she had been prescribed some medications related to this but has not been taking them - her cancer doctor has been encouraging her to see a neurologist but she is not interested. Her pain control is fair related to the pelvic fractures. She would like to wean off the oxygen if at all possible before going home. She did use oxygen for a brief time several years ago. She has been having BMs over the recent days. No nursing concerns.---05/13/24Steffen vines is lying in her bed with her head of bed elevated at 45 . She reports pain that is not well in control when she is in any position besides lying down like this. She ate breakfast seated at the dining table and then went to therapy today, so she has had an increase in her pain in her pelvis because of it. She has found relief with lying down in this position and PRN pain medications. She continues to require oxygen supplementation at 2L NC. She denies any respiratory concerns today. She is in agreement with plan to increase and schedule her Tylenol and change her PRN pain medication over to Oxycodone so that she can continue to have PRN breakthrough doses without worrying about going over the Tylenol limit. Otherwise she is without concerns, denies constipation. VSS. Staff is without concerns today beyond pain control needs.---05/15/24Kristin chadwick is lying in bed, reporting uncontrolled pain to her pelvis that nearly brings me to tears. On review of PRN administration, she has been taking her Oxycodone every 4 hours over the last 12 hours. Despite this, her pain is not well-controlled. She continues to require 2L NC. She is in agreement to adding inhaler to see if this might help wean her off oxygen. VSS. She continues to report vertigo upon sitting upright. Have started PRN Meclizine, unclear if she has yet taken a dose. Staff is without concerns otherwise. Have requested daily orthostatics. On review of BM log, it appears it has been 4+ days since her last BM.---05/19/24Merry bullard is lying in bed, a fair historian, reports feeling some relief after straight catheterization. She told nursing this morning that she hadn't urinated in 2 days. Straight catheterization yieled 1,000 ml of urine. UA has been collected. Valeria's largest concern is her LLE neuropathy symptoms, she describes as sharp and stabbing and takes my breath away. She reports the pain brings her to tears, starts at her hip and shoots down her left leg only. She denies having history of sciatica or pain like this in the past. She feels her progress with therapy is limited by this pain and she only receives temporary relief from APAP or Oxycodone. She otherwise denies GERD symptoms. VSS. Staff is without concerns.---05/21/24Williams andrew is seated in her w/c in her room, having finished eating breakfast. She is in good spirits, appears to be in less pain today as she is seated upright and doing fairly well. She does not report noting an improvement since initiation of Gabapentin, however. She continues with radiating pain to left buttock and left lateral thigh. She took PRN oxycodone with relief for now. She continues with urinary catheter in place, draining clear urine. UA from 05/20 was normal, did not reflex to culture. VSS. Staff is without concerns today.---2/17/Neri caruso is resting in bed, a fair historian, reports [R] shoulder pain that is worse than a reported fall on Sunday. Per nursing notes on 05/25: Jodie stated to this nurse and RETAIL SERVICE TECHNICIAN that she fell from bed last night while reaching for bed control. She stated that she was on the floor and yelled for help, no one came and she was able to get herself back into bed unassisted. This nurse and deandra's RETAIL SERVICE TECHNICIAN were both present on Sunday and did not hear jodie yelling or any noise coming from her room. Jodie was lying in bed in normal position, covered with blankets during 6am med pass. This nurse asked jodie if she may have been dreaming, as she usually is not able to assist herself to and from bed without staff help. Jodie stated she did fall. Guest assessed and no injury noted. No bruising aside from older bruises from blood draws noted. Jodie able to move all extremities with good ROM. Jodie states her right shoulder and left leg hurt, but that they did hurt before she fell. Scheduled pain medication given. Vital signs and neuro-checks started. She tells me today that she fell Sunday night (not Sunday night). She reached across the bed with her left arm to grab the siderail but missed and continued rolling off the bed. I asked if she hit her head on the siderail (as it would be impossible for her not to as it is at the level of and below her head) and she denies this. She tells me she fell onto her right side onto the floor and sat upright for about 15 minutes, calling for help. No one reportedly came so she claims she used the sheets on the bed to pull herself back up into bed. For clear reasons, this narrative does not quite make sense but she has repeated different versions of this story many times to staff here. There is no visible injury/bruising to her right shoulder. She has been reporting right shoulder pain since the hospital and I had planned on following with possible Xray today if had not improved, so will Xray today. She reports no change to her pain of her pelvis and LLE. She is in agreement to attempt a voiding trial today. Otherwise she appears to baseline. VSS. Staff is without concerns beyond aforementioned. Kianna Negro, MARYJANE [address] [place], [address], [facility] - [facility] 05/26/2024 14:01:23 05/28/2024 text/html F/U fall with ri ght superior & inferior pubic rami fractures, acute hypoxemic respiratory failure sec to COPD exacerbation with current tobacco use, known breast cancer (treating with oral chemo), abd pain sec to constipation, and chronic medical conditions.---05/10/24T he patient lives alone in a home in [place]. 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 She has a son and daughter in law who live in [facility]. The patient does not have a PCP. She has been diagnosed with breast cancer in the last year but is not interested in aggressive treatment of this - she does still follow with oncology. She also had a stroke in the last year (she denies significant residual deficits) and reports she had been prescribed some medications related to this but has not been taking them - her cancer doctor has been encouraging her to see a neurologist but she is not interested. Her pain control is fair related to the pelvic fractures. She would like to wean off the oxygen if at all possible before going home. She did use oxygen for a brief time several years ago. She has been having BMs over the recent days. No nursing concerns.---05/13/24Steffen vines is lying in her bed with her head of bed elevated at 45 . She reports pain that is not well in control when she is in any position besides lying down like this. She ate breakfast seated at the dining table and then went to therapy today, so she has had an increase in her pain in her pelvis because of it. She has found relief with lying down in this position and PRN pain medications. She continues to require oxygen supplementation at 2L NC. She denies any respiratory concerns today. She is in agreement with plan to increase and schedule her Tylenol and change her PRN pain medication over to Oxycodone so that she can continue to have PRN breakthrough doses without worrying about going over the Tylenol limit. Otherwise she is without concerns, denies constipation. VSS. Staff is without concerns today beyond pain control needs.---05/15/24Kristin chadwick is lying in bed, reporting uncontrolled pain to her pelvis that nearly brings me to tears. On review of PRN administration, she has been taking her Oxycodone every 4 hours over the last 12 hours. Despite this, her pain is not well-controlled. She continues to require 2L NC. She is in agreement to adding inhaler to see if this might help wean her off oxygen. VSS. She continues to report vertigo upon sitting upright. Have started PRN Meclizine, unclear if she has yet taken a dose. Staff is without concerns otherwise. Have requested daily orthostatics. On review of BM log, it appears it has been 4+ days since her last BM.---05/19/24Merry bullard is lying in bed, a fair historian, reports feeling some relief after straight catheterization. She told nursing this morning that she hadn't urinated in 2 days. Straight catheterization yieled 1,000 ml of urine. UA has been collected. Valeria's largest concern is her LLE neuropathy symptoms, she describes as sharp and stabbing and takes my breath away. She reports the pain brings her to tears, starts at her hip and shoots down her left leg only. She denies having history of sciatica or pain like this in the past. She feels her progress with therapy is limited by this pain and she only receives temporary relief from APAP or Oxycodone. She otherwise denies GERD symptoms. VSS. Staff is without concerns.---05/21/24Williams andrew is seated in her w/c in her room, having finished eating breakfast. She is in good spirits, appears to be in less pain today as she is seated upright and doing fairly well. She does not report noting an improvement since initiation of Gabapentin, however. She continues with radiating pain to left buttock and left lateral thigh. She took PRN oxycodone with relief for now. She continues with urinary catheter in place, draining clear urine. UA from 05/20 was normal, did not reflex to culture. VSS. Staff is without concerns today.---05/26/24Dean caruso is resting in bed, a fair historian, reports [R] shoulder pain that is worse than a reported fall on Sunday night. Per nursing notes on 05/25: Guest stated to this nurse and RETAIL SERVICE TECHNICIAN that she fell from bed last night while reaching for bed control. She stated that she was on the floor and yelled for help, no one came and she was able to get herself back into bed unassisted. This nurse and deandra's RETAIL SERVICE TECHNICIAN were both present on Sunday night and did not hear jodie yelling or any noise coming from her room. Jodie was lying in bed in normal position, covered with blankets during 6am med pass. This nurse asked jodie if she may have been dreaming, as she usually is not able to assist herself to and from bed without staff help. Jodie stated she did fall. Guest assessed and no injury noted. No bruising aside from older bruises from blood draws noted. Jodie able to move all extremities with good ROM. Jodie states her right shoulder and left leg hurt, but that they did hurt before she fell. Scheduled pain medication given. Vital signs and neuro-checks started. She tells me today that she fell Sunday night (not Sunday night). She reached across the bed with her left arm to grab the siderail but missed and continued rolling off the bed. I asked if she hit her head on the siderail (as it would be impossible for her not to as it is at the level of and below her head) and she denies this. She tells me she fell onto her right side onto the floor and sat upright for about 15 minutes, calling for help. No one reportedly came so she claims she used the sheets on the bed to pull herself back up into bed. For clear reasons, this narrative does not quite make sense but she has repeated different versions of this story many times to staff here. There is no visible injury/bruising to her right shoulder. She has been reporting right shoulder pain since the hospital and I had planned on following with possible Xray today if had not improved, so will Xray today. She reports no change to her pain of her pelvis and LLE. She is in agreement to attempt a voiding trial today. Otherwise she appears to baseline. VSS. Staff is without concerns beyond aforementioned.---05/10 01/01Valeria is seated upright in bed, doing well, reports her pain is gradually improving and that she did very well with therapy today. She is happy with her progress, even though it's slow. She continues to void without concerns, denies any symptoms of retention. VSS. Staff is without concerns today. Per 05/26 therapy notes: Patient ambulated 50 ft on level surfaces with a FWW, requiring Val. Patient required cueing for walker safety, posture and navigation. Wheelchair follow and O2 management needed. Patient performed sit to stand and pivot transfers requiring CGA. Kianna Negro, MARYJANE [address] [facility], [place], [address], [facility] - [facility] 05/28/2024 18:33:23 05/30/2024 text/html F/U fall with ri ght superior & inferior pubic rami fractures, acute hypoxemic respiratory failure sec to COPD exacerbation with current tobacco use, known breast cancer (treating with oral chemo), abd pain sec to constipation, and chronic medical conditions.---05/10/24T he patient lives alone in a home in [place]. 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 She has a son and daughter in law who live in [facility]. The patient does not have a PCP. She has been diagnosed with breast cancer in the last year but is not interested in aggressive treatment of this - she does still follow with oncology. She also had a stroke in the last year (she denies significant residual deficits) and reports she had been prescribed some medications related to this but has not been taking them - her cancer doctor has been encouraging her to see a neurologist but she is not interested. Her pain control is fair related to the pelvic fractures. She would like to wean off the oxygen if at all possible before going home. She did use oxygen for a brief time several years ago. She has been having BMs over the recent days. No nursing concerns.---05/13/24Steffen vines is lying in her bed with her head of bed elevated at 45 . She reports pain that is not well in control when she is in any position besides lying down like this. She ate breakfast seated at the dining table and then went to therapy today, so she has had an increase in her pain in her pelvis because of it. She has found relief with lying down in this position and PRN pain medications. She continues to require oxygen supplementation at 2L NC. She denies any respiratory concerns today. She is in agreement with plan to increase and schedule her Tylenol and change her PRN pain medication over to Oxycodone so that she can continue to have PRN breakthrough doses without worrying about going over the Tylenol limit. Otherwise she is without concerns, denies constipation. VSS. Staff is without concerns today beyond pain control needs.---05/15/24Kristin chadwick is lying in bed, reporting uncontrolled pain to her pelvis that nearly brings me to tears. On review of PRN administration, she has been taking her Oxycodone every 4 hours over the last 12 hours. Despite this, her pain is not well-controlled. She continues to require 2L NC. She is in agreement to adding inhaler to see if this might help wean her off oxygen. VSS. She continues to report vertigo upon sitting upright. Have started PRN Meclizine, unclear if she has yet taken a dose. Staff is without concerns otherwise. Have requested daily orthostatics. On review of BM log, it appears it has been 4+ days since her last BM.---05/19/24Merry bullard is lying in bed, a fair historian, reports feeling some relief after straight catheterization. She told nursing this morning that she hadn't urinated in 2 days. Straight catheterization yieled 1,000 ml of urine. UA has been collected. Valeria's largest concern is her LLE neuropathy symptoms, she describes as sharp and stabbing and takes my breath away. She reports the pain brings her to tears, starts at her hip and shoots down her left leg only. She denies having history of sciatica or pain like this in the past. She feels her progress with therapy is limited by this pain and she only receives temporary relief from APAP or Oxycodone. She otherwise denies GERD symptoms. VSS. Staff is without concerns.---05/21/24Williams andrew is seated in her w/c in her room, having finished eating breakfast. She is in good spirits, appears to be in less pain today as she is seated upright and doing fairly well. She does not report noting an improvement since initiation of Gabapentin, however. She continues with radiating pain to left buttock and left lateral thigh. She took PRN oxycodone with relief for now. She continues with urinary catheter in place, draining clear urine. UA from 05/20 was normal, did not reflex to culture. VSS. Staff is without concerns today.---05/26/24Dean caruso is resting in bed, a fair historian, reports [R] shoulder pain that is worse than a reported fall on Sunday. Per nursing notes on 05/25: Jodie stated to this nurse and RETAIL SERVICE TECHNICIAN that she fell from bed last night while reaching for bed control. She stated that she was on the floor and yelled for help, no one came and she was able to get herself back into bed unassisted. This nurse and deandra's RETAIL SERVICE TECHNICIAN were both present on Sunday and did not hear jodie yelling or any noise coming from her room. Jodie was lying in bed in normal position, covered with blankets during 6am med pass. This nurse asked jodie if she may have been dreaming, as she usually is not able to assist herself to and from bed without staff help. Jodie stated she did fall. Jodie assessed and no injury noted. No bruising aside from older bruises from blood draws noted. Jodie able to move all extremities with good ROM. Jodie states her right shoulder and left leg hurt, but that they did hurt before she fell. Scheduled pain medication given. Vital signs and neuro-checks started. She tells me today that she fell Sunday (not Sunday). She reached across the bed with her left arm to grab the siderail but missed and continued rolling off the bed. I asked if she hit her head on the siderail (as it would be impossible for her not to as it is at the level of and below her head) and she denies this. She tells me she fell onto her right side onto the floor and sat upright for about 15 minutes, calling for help. No one reportedly came so she claims she used the sheets on the bed to pull herself back up into bed. For clear reasons, this narrative does not quite make sense but she has repeated different versions of this story many times to staff here. There is no visible injury/bruising to her right shoulder. She has been reporting right shoulder pain since the hospital and I had planned on following with possible Xray today if had not improved, so will Xray today. She reports no change to her pain of her pelvis and LLE. She is in agreement to attempt a voiding trial today. Otherwise she appears to baseline. VSS. Staff is without concerns beyond aforementioned.---05/10 01/01Valeria is seated upright in bed, doing well, reports her pain is gradually improving and that she did very well with therapy today. She is happy with her progress, even though it's slow. She continues to void without concerns, denies any symptoms of retention. VSS. Staff is without concerns today. Per 05/26 therapy notes: Patient ambulated 50 ft on level surfaces with a FWW, requiring Val. Patient required cueing for walker safety, posture and navigation. Wheelchair follow and O2 management needed. Patient performed sit to stand and pivot transfers requiring CGA. ---05/30/24Kristin chadwick is seated in her w/c in her room, doing well, without concerns or pain to report today. She reports she had strange chest pain earlier that was stabbing in nature and overlying her stomach just under her left breast that radiated over to her RUQ under her right breast. She otherwise denies ACS symptoms. She was mostly concerned as she believed it might be related to her breast cancer and wanted to know if she should see oncology. She was given a PRN Nitro, Pepcid, and Zofran by nursing at Dr. Cancino's direction with relief 30 minutes later. She has felt fine since. She had a regular, formed BM this morning. VSS. Staff is without concerns otherwise today. Per 05/29 therapy notes: Conducted gait training with FWW ~40' CGA cues for breathing techniques and for turns. Kianna Negro, MARYJANE [address] [place], [id number], [facility] - [facility] 05/30/2024 13:51:35 06/03/2024 text/html F/U fall with ri ght superior & inferior pubic rami fractures, acute hypoxemic respiratory failure sec to COPD exacerbation with current tobacco use, known breast cancer (treating with oral chemo), abd pain sec to constipation, and chronic medical conditions.---05/10/24T he patient lives alone in a home in [place]. 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 She has a son and daughter in law who live in [facility]. The patient does not have a PCP. She has been diagnosed with breast cancer in the last year but is not interested in aggressive treatment of this - she does still follow with oncology. She also had a stroke in the last year (she denies significant residual deficits) and reports she had been prescribed some medications related to this but has not been taking them - her cancer doctor has been encouraging her to see a neurologist but she is not interested. Her pain control is fair related to the pelvic fractures. She would like to wean off the oxygen if at all possible before going home. She did use oxygen for a brief time several years ago. She has been having BMs over the recent days. No nursing concerns.---05/13/24Steffen vines is lying in her bed with her head of bed elevated at 45 . She reports pain that is not well in control when she is in any position besides lying down like this. She ate breakfast seated at the dining table and then went to therapy today, so she has had an increase in her pain in her pelvis because of it. She has found relief with lying down in this position and PRN pain medications. She continues to require oxygen supplementation at 2L NC. She denies any respiratory concerns today. She is in agreement with plan to increase and schedule her Tylenol and change her PRN pain medication over to Oxycodone so that she can continue to have PRN breakthrough doses without worrying about going over the Tylenol limit. Otherwise she is without concerns, denies constipation. VSS. Staff is without concerns today beyond pain control needs.---05/15/24Kristin chadwick is lying in bed, reporting uncontrolled pain to her pelvis that nearly brings me to tears. On review of PRN administration, she has been taking her Oxycodone every 4 hours over the last 12 hours. Despite this, her pain is not well-controlled. She continues to require 2L NC. She is in agreement to adding inhaler to see if this might help wean her off oxygen. VSS. She continues to report vertigo upon sitting upright. Have started PRN Meclizine, unclear if she has yet taken a dose. Staff is without concerns otherwise. Have requested daily orthostatics. On review of BM log, it appears it has been 4+ days since her last BM.---05/19/24Merry bullard is lying in bed, a fair historian, reports feeling some relief after straight catheterization. She told nursing this morning that she hadn't urinated in 2 days. Straight catheterization yieled 1,000 ml of urine. UA has been collected. Valeria's largest concern is her LLE neuropathy symptoms, she describes as sharp and stabbing and takes my breath away. She reports the pain brings her to tears, starts at her hip and shoots down her left leg only. She denies having history of sciatica or pain like this in the past. She feels her progress with therapy is limited by this pain and she only receives temporary relief from APAP or Oxycodone. She otherwise denies GERD symptoms. VSS. Staff is without concerns.---05/21/24Williams andrew is seated in her w/c in her room, having finished eating breakfast. She is in good spirits, appears to be in less pain today as she is seated upright and doing fairly well. She does not report noting an improvement since initiation of Gabapentin, however. She continues with radiating pain to left buttock and left lateral thigh. She took PRN oxycodone with relief for now. She continues with urinary catheter in place, draining clear urine. UA from 05/20 was normal, did not reflex to culture. VSS. Staff is without concerns today.---05/26/24Dean caruso is resting in bed, a fair historian, reports [R] shoulder pain that is worse than a reported fall on Sunday. Per nursing notes on 05/25: Jodie stated to this nurse and RETAIL SERVICE TECHNICIAN that she fell from bed last night while reaching for bed control. She stated that she was on the floor and yelled for help, no one came and she was able to get herself back into bed unassisted. This nurse and deandra's RETAIL SERVICE TECHNICIAN were both present on Sunday and did not hear jodie yelling or any noise coming from her room. Jodie was lying in bed in normal position, covered with blankets during 6am med pass. This nurse asked jodie if she may have been dreaming, as she usually is not able to assist herself to and from bed without staff help. Jodie stated she did fall. Jodie assessed and no injury noted. No bruising aside from older bruises from blood draws noted. Jodie able to move all extremities with good ROM. Jodie states her right shoulder and left leg hurt, but that they did hurt before she fell. Scheduled pain medication given. Vital signs and neuro-checks started. She tells me today that she fell Sunday night (not Sunday night). She reached across the bed with her left arm to grab the siderail but missed and continued rolling off the bed. I asked if she hit her head on the siderail (as it would be impossible for her not to as it is at the level of and below her head) and she denies this. She tells me she fell onto her right side onto the floor and sat upright for about 15 minutes, calling for help. No one reportedly came so she claims she used the sheets on the bed to pull herself back up into bed. For clear reasons, this narrative does not quite make sense but she has repeated different versions of this story many times to staff here. There is no visible injury/bruising to her right shoulder. She has been reporting right shoulder pain since the hospital and I had planned on following with possible Xray today if had not improved, so will Xray today. She reports no change to her pain of her pelvis and LLE. She is in agreement to attempt a voiding trial today. Otherwise she appears to baseline. VSS. Staff is without concerns beyond aforementioned.---05/10 01/01Valeria is seated upright in bed, doing well, reports her pain is gradually improving and that she did very well with therapy today. She is happy with her progress, even though it's slow. She continues to void without concerns, denies any symptoms of retention. VSS. Staff is without concerns today. Per 05/26 therapy notes: Patient ambulated 50 ft on level surfaces with a FWW, requiring Val. Patient required cueing for walker safety, posture and navigation. Wheelchair follow and O2 management needed. Patient performed sit to stand and pivot transfers requiring CGA. ---05/30/24Kristin chadwick is seated in her w/c in her room, doing well, without concerns or pain to report today. She reports she had strange chest pain earlier that was stabbing in nature and overlying her stomach just under her left breast that radiated over to her RUQ under her right breast. She otherwise denies ACS symptoms. She was mostly concerned as she believed it might be related to her breast cancer and wanted to know if she should see oncology. She was given a PRN Nitro, Pepcid, and Zofran by nursing at Dr. Cancino's direction with relief 30 minutes later. She has felt fine since. She had a regular, formed BM this morning. VSS. Staff is without concerns otherwise today. Per 05/29 therapy notes: Conducted gait training with FWW ~40' CGA cues for breathing techniques and for turns. ---06/03/24Surendra reaves is resting in bed, doing fairly well but continues to report [R] shoulder pain. She notes the addition of lidocain patches have not helped. She will be seeing her orthopedist tomorrow and I encourage her to mention her [R] shoulder pain. We will send her with results of the XR done here. Concern for possible ligament injury from original fall or prior to hospitalization. She otherwise appears to be doing well today. VSS. Staff is without concerns today. Per therapy notes on 06/02: Conducted gait training with FWW ~40' CGA cues encouragement to continue. Staff and pt encouraged to do walking program Kianna Negro, M[address] [address] [place], [phone], [facility] 06/04/2024 17:59:53 06/06/2024 text/html 88 Y/O female wi th a past medical history of COPD, breast cancer, CVA and carotid stenosis admitted to [facility] for post acute rehab subsequent to an inpatient stay at [facility] 04/28-05/08/2024 related to shortness of breath. The patient had a fall at her home 04/23 resulting in a right superior and inferior pubic rami fractures. She was admitted to [facility] 04/23-04/25/2024 with orthopedic consultation. Non operative management was recommended. She was transferred to [facility] 04/25 but began having shortness of breath shortly after admission there. She ended up being returned to the ER 04/28 due to hypoxia with complaints of bilateral calf pain. In the ER, WBC was 7.4, Hb 12.5, Plt 196, Na 134, K 4, Cr 0.7, Chest CTA was without pulmonary embolism, c/w bronchiectasis/emphys jorge luis and a cavitary lesion of the right upper lobe (TB reportedly ruled out). It was noted that she had an enlarging left adrenal gland with ill-defined margins suspicious for metastatic disease. small left and tiny right pleural effusions, small sliding type hiatal hernia. Venous dopplers were negative for DVT. She was treated with antibiotics and steroids for a COPD exacerbation and bronchiectasis. She completed antibiotics during her inpatient stay and continues on a steroid taper. She continues to require supplemental O2 at 2-3 liters/minute. The patient was still smoking leading up to her recent hospitalizations - she has not been requiring nicotine replacement. Her inpatient stay was complicated by abdominal pain thought to be related to constipation. New medications on discharge: prednisone, bisacodyl, miralax code status is DNR PCP - none Onc - Fabián Negro is alternate contact --- 05/10/24 The patient lives alone in a home in [place]. 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 She has a son and daughter in law who live in [facility]. The patient does not have a PCP. She has been diagnosed with breast cancer in the last year but is not interested in aggressive treatment of this - she does still follow with oncology. She also had a stroke in the last year (she denies significant residual deficits) and reports she had been prescribed some medications related to this but has not been taking them - her cancer doctor has been encouraging her to see a neurologist but she is not interested. Her pain control is fair related to the pelvic fractures. She would like to wean off the oxygen if at all possible before going home. She did use oxygen for a brief time several years ago. She has been having BMs over the recent days. No nursing concerns. --- 05/13/24 Valeria is lying in her bed with her head of bed elevated at 45 . She reports pain that is not well in control when she is in any position besides lying down like this. She ate breakfast seated at the dining table and then went to therapy today, so she has had an increase in her pain in her pelvis because of it. She has found relief with lying down in this position and PRN pain medications. She continues to require oxygen supplementation at 2L NC. She denies any respiratory concerns today. She is in agreement with plan to increase and schedule her Tylenol and change her PRN pain medication over to Oxycodone so that she can continue to have PRN breakthrough doses without worrying about going over the Tylenol limit. Otherwise she is without concerns, denies constipation. VSS. Staff is without concerns today beyond pain control needs. --- 05/15/24 Valeria is lying in bed, reporting uncontrolled pain to her pelvis that nearly brings me to tears. On review of PRN administration, she has been taking her Oxycodone every 4 hours over the last 12 hours. Despite this, her pain is not well-controlled. She continues to require 2L NC. She is in agreement to adding inhaler to see if this might help wean her off oxygen. VSS. She continues to report vertigo upon sitting upright. Have started PRN Meclizine, unclear if she has yet taken a dose. Staff is without concerns otherwise. Have requested daily orthostatics. On review of BM log, it appears it has been 4+ days since her last BM. --- 05/19/24 Valeria is lying in bed, a fair historian, reports feeling some relief after straight catheterization. She told nursing this morning that she hadn't urinated in 2 days. Straight catheterization yieled 1,000 ml of urine. UA has been collected. Valeria's largest concern is her LLE neuropathy symptoms, she describes as sharp and stabbing and takes my breath away. She reports the pain brings her to tears, starts at her hip and shoots down her left leg only. She denies having history of sciatica or pain like this in the past. She feels her progress with therapy is limited by this pain and she only receives temporary relief from APAP or Oxycodone. She otherwise denies GERD symptoms. VSS. Staff is without concerns. --- 05/21/24 Valeria is seated in her w/c in her room, having finished eating breakfast. She is in good spirits, appears to be in less pain today as she is seated upright and doing fairly well. She does not report noting an improvement since initiation of Gabapentin, however. She continues with radiating pain to left buttock and left lateral thigh. She took PRN oxycodone with relief for now. She continues with urinary catheter in place, draining clear urine. UA from 05/20 was normal, did not reflex to culture. VSS. Staff is without concerns today. --- 05/26/24 Valeria is resting in bed, a fair historian, reports [R] shoulder pain that is worse than a reported fall on Sunday night. Per nursing notes on 05/25: Guest stated to this nurse and RETAIL SERVICE TECHNICIAN that she fell from bed last night while reaching for bed control. She stated that she was on the floor and yelled for help, no one came and she was able to get herself back into bed unassisted. This nurse and deandra's RETAIL SERVICE TECHNICIAN were both present on Sunday night and did not hear jodie yelling or any noise coming from her room. Jodie was lying in bed in normal position, covered with blankets during 6am med pass. This nurse asked jodie if she may have been dreaming, as she usually is not able to assist herself to and from bed without staff help. Jodie stated she did fall. Guest assessed and no injury noted. No bruising aside from older bruises from blood draws noted. Jodie able to move all extremities with good ROM. Jodie states her right shoulder and left leg hurt, but that they did hurt before she fell. Scheduled pain medication given. Vital signs and neuro-checks started. She tells me today that she fell Sunday night (not Sunday night). She reached across the bed with her left arm to grab the siderail but missed and continued rolling off the bed. I asked if she hit her head on the siderail (as it would be impossible for her not to as it is at the level of and below her head) and she denies this. She tells me she fell onto her right side onto the floor and sat upright for about 15 minutes, calling for help. No one reportedly came so she claims she used the sheets on the bed to pull herself back up into bed. For clear reasons, this narrative does not quite make sense but she has repeated different versions of this story many times to staff here. There is no visible injury/bruising to her right shoulder. She has been reporting right shoulder pain since the hospital and I had planned on following with possible Xray today if had not improved, so will Xray today. She reports no change to her pain of her pelvis and LLE. She is in agreement to attempt a voiding trial today. Otherwise she appears to baseline. VSS. Staff is without concerns beyond aforementioned. --- 05/28/24 Valeria is seated upright in bed, doing well, reports her pain is gradually improving and that she did very well with therapy today. She is happy with her progress, even though it's slow. She continues to void without concerns, denies any symptoms of retention. VSS. Staff is without concerns today. Per 05/26 therapy notes: Patient ambulated 50 ft on level surfaces with a FWW, requiring Val. Patient required cueing for walker safety, posture and navigation. Wheelchair follow and O2 management needed. Patient performed sit to stand and pivot transfers requiring CGA. --- 05/30/24 Valeria is seated in her w/c in her room, doing well, without concerns or pain to report today. She reports she had strange chest pain earlier that was stabbing in nature and overlying her stomach just under her left breast that radiated over to her RUQ under her right breast. She otherwise denies ACS symptoms. She was mostly concerned as she believed it might be related to her breast cancer and wanted to know if she should see oncology. She was given a PRN Nitro, Pepcid, and Zofran by nursing at Dr. Cancino's direction with relief 30 minutes later. She has felt fine since. She had a regular, formed BM this morning. VSS. Staff is without concerns otherwise today. Per 05/29 therapy notes: Conducted gait training with FWW ~40' CGA cues for breathing techniques and for turns. --- 06/03/24 Valeria is resting in bed, doing fairly well but continues to report [R] shoulder pain. She notes the addition of lidocain patches have not helped. She will be seeing her orthopedist tomorrow and I encourage her to mention her [R] shoulder pain. We will send her with results of the XR done here. Concern for possible ligament injury from original fall or prior to hospitalization. She otherwise appears to be doing well today. VSS. Staff is without concerns today. Per therapy notes on 06/02: Conducted gait training with FWW ~40' CGA cues encouragement to continue. Staff and pt encouraged to do walking program --- 06/06/24 Valeria is lying in bed, a fair historian, reports that she is nervous about her upcoming discharge to [facility] on 06/07. She reports that she still struggles to do things on her own at times. When I ask her to expand on this as staff has indicated that she is independent in her ADLs, she tells me that she continues to get dizzy at times when she stands up. While this is a chronic concern/issue, she tells me that she fell yesterday when she was attempting to transfer herself from her wheelchair to her recliner. This was not reported to staff and thus was not reported to me. I ask her what happened and she tells me that she became dizzy and fell. I ask her what she landed on when she fell and she tells me, the floor. I ask her what part on her body she landed on and instead of answering, she shows me her left ma, which is bruised. I note that her knee is spared, which would logically also be bruised if she fell onto her ma. She denies any other injury during this fall, does continue to report [R] shoulder pain, which she was told by orthopedics is a rotator cuff tear for which nothing can be done but supportive care and continued therapies. Valeria is using this fall as a reason to insist that she cannot discharge to [facility]. She tells me, instead, that she will discharge home. I point out to her that that is an even more unsafe plan than [place] as she will have absolutely no help there, rather than a pendant on which she can summon help. Valeria tells me that she will just have to make do. I note to her that this will likely just result in another fall at home and that she will end up in the ER and start this whole process over again. She tells me that this is just how it will have to be and that she won't call for help so that she is not taken to the hospital. I point out that this plan does not make sense as she could if she does not call for help and that inevitably and hopefully somebody like her son will find her and call 911. I explain that this is an unsafe discharge plan and that is why we are recommending an [facility]. I note to her that if her desire is to discharge home and not go back to the hospital in the future, that she should consider placement on hospice care. She has been meeting with social work and social work and staff are aware of the aforementioned concerns and statements by Valeria. SW has a call out to the patient's son to discuss this further. As of now, the plan continues to be that the patient discharge to [facility] with C and a wheelchair, which has been ordered. If the wheelchair has not arrived by the time the patient is discharged, she will borrow one of ours. VSS. Oxygen study performed and pt qualifies for continuous O2 at 2L per NC -- pt desaturated to 88% on room air. Staff is without concerns beyond aforementioned. Kianna Negro, MARYJANE [address] [facility], [place], [phone], [facility] 06/07/2024 12:22:06 OBGyn Episode No OBEpisode recorded.
--- OUTSIDE RECORDS SUMMARY | 2024-06-20 13:29 | XMS_ITS | Clinical Summary ---
Author Organization [facility] Address [facility] [place] [address] Care Team Providers Care Equipment Processer Storage Name Role Phone None, Provider MD Primary Care Provider Unavaila ble Allergies No known active allergies Medications albuterol sulfate HFA 108 (90 Base) MCG/ACT inhaler Inhale 2 puffs into the lungs 4 (four) times daily. 1 Inhaler 0 Active Respiratory Therapy Supplies (NEBULIZER COMPRESSOR) KitIndications:P ulmonary emphysema, unspecified emphysema type ([facility]) For use with nebulized medications 1 kit 1 0 Active Respiratory Therapy Supplies (NEBULIZER/ADULT MASK) KitIndications:P ulmonary emphysema, unspecified emphysema type ([facility]) For use with nebulizer 1 kit 0 Active ipratropium-albu terol 0.5-2.5 (3) MG/3ML SolutionIndicati ons:Pulmonary emphysema, unspecified emphysema type ([facility]) Take 3 mLs by nebulization 4 (four) times a day. 360 mL 11 0 Active aspirin EC (ASPIRIN EC) 81 MG tablet Take 81 mg by mouth daily. Active Respiratory Therapy Supplies (FLUTTER) DeviceIndication s:COPD exacerbation ([facility]) 1 each by Does not apply route 2 (two) times daily. 1 Device 0 Active ALBUTEROL (2.5 MG/3ML) 0.083% nebulizer solutionIndicati ons:Pulmonary emphysema, unspecified emphysema type ([facility]) INHALE CONTENTS OF 1 VIAL PER NEBULIZER EVERY 6 HOURS NEEDED FOR WHEEZING 375 mL 3 1 Active TRELEGY 100-62.5-25 MCG/INH AEROSOL POWDER, BREATH ACTIVATEDIndicat ions:Pulmonary emphysema, unspecified emphysema type ([facility]) TAKE 1 PUFF BY MOUTH EVERY DAY 1 each 1 Active Active Problems Problem Noted Date Diagnosed Date Thrush 05/29/2019 Pulmonary emphysema, unspeci fied emphysema type ([facility]) 05/29/2019 Chronic respiratory failure with hypoxia ([facility]) 05/29/2019 Cigarette nicotine dependence in remission 05/29 COPD exacerbation ([facility]) 05/19/2019 Gastroesophageal reflux disease without esophagi tis 05/14/2019 Overview (05/14/2019): Hx of GI bleed Acute respiratory failure ([facility]) 06/2019 Dizziness 05/12/2019 Duodenitis without hemorrhage 07/20/2015 [...] Comments Blood Pressure 136/68 02/24/2020 8:58 AM DRIP MOLDER Pulse 98 02/24/2020 8:58 AM DRIP MOLDER Temperature 36.3 C (97.4 F) 02/24/2020 8:58 AM DRIP MOLDER Respiratory Rate 16 02/24/2020 8:58 AM DRIP MOLDER Oxygen Saturation 92% 02/24/2020 8:58 AM DRIP MOLDER Inhaled Oxygen Concentration - - Weight 54.9 kg (121 lb) 02/24/2020 8:58 AM DRIP MOLDER Height 165.1 cm (5' 5 ) 02/24/2020 8:58 AM DRIP MOLDER Body Mass Index 20.14 02/24/2020 8:58 AM DRIP MOLDER Plan of Treatment Health Maintenance Due Date Last Done Comments Pneumococcal Vaccine: 65+ Ye ars (1 of 2 - PCV) 1943 DTaP, Tdap and Td Vaccines ( 1 - Tdap) 1956 Zoster Vaccines (1 of 2) 1987 RSV Immunization or 60+ Years (1 - 1-dose 75+ series) 2012 COVID-19 Vaccine (1 - 2023-2 5 season) 2023 Influenza Adult [...] Documents on File Type Date Recorded Patient Practice Billing Associate Expl anation Advance Directives and Living Will 05/21/2019 7:24 AM 05/20/19 POLST FORM * DNR (Latest Code Status on File) Date Activated Date Inactivated Comments 05/19/2019 9:23 PM 05/23/2019 9:01 PM * Full Code Date Activated Date Inactivated Comments 05/19/2019 7:50 PM 05/19/2019 9:23 PM * Full Code Date Activated Date Inactivated Comments 05/12/2019 2:59 PM 05/16/2019 4:01 PM Care Teams Equipment Processer Storage Relationship Specialty Start Date End Date None, Provider, PCP - General 07/17/19
--- OUTSIDE RECORDS SUMMARY | 2024-06-20 13:29 | XMS_ITS | Encounter Summary ---
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 Answer Date of Assessment Author Status No 05/12/2019 3:06 PM PUBLIC HEALTH ANALYST Activ e * Do you have serious [...] on filedocumented in this encounter Care Teams Target Trimmer Relationship Specialty Start Date End Date None, ProviderMD PCP - General 05/12/19 07/16/19 None, ProviderMD PCP - General 07/17/19 documented as of this encounter
[2024-06-20 13:50] VITALS: BP 121/58; PULSE 86; RESP 16; TEMP 36.1; O2SAT 98
[2024-06-20 16:50] VITALS: BP 144/81; PULSE 70; RESP 19; O2SAT 98
--- NOTE | 2024-06-20 17:29 | ED_ITS ---
HPI - Extremity Injury (Lower) General Chief Complaint: Extremity Injury, Lower Stated Complaint: LLE wound Time Seen by Provider: 06/20/24 16:56 Source: patient Mode of arrival: EMS Limitations: no limitations History of Present Illness HPI Narrative: Patient is an 89 y/o female, with PMH of breast CA, who presents to the ED via EMS with report of wounds to her left lower leg. Patient is a resident of [facility]. She had a fall 2 weeks ago which she sustained abrasion to her left ma. Was bandaged with Steri-Strips. States over the last few days, left leg has become swollen, erythematous, shiny, with increased pain and drainage. Reports purulent and serous drainage. Was advised to come to the ED for antibiotics. Patient denies fever. She is not on any anticoagulation. No hx of DM. Related Data Home Medications ?Medication ?Instructions ?Recorded ?Confirmed ?Last Taken ?Type multivitamin 1 tablet PO DAILY 07/17/23 06/04/24 04/25/24 History benzocaine 15 mg-menthol 10 mg 1 monica PO Q6H PRN sore throat 04/28/24 06/04/24 Unknown History lozenges Allergies Allergy/AdvReac Type Severity Reaction Status Date / Time No Known Allergies Allergy Verified 06/04/24 11:23 Review of Systems 2 Review of Systems: All systems reviewed & are unremarkable except as noted in HPI. All systems reviewed & are unremarkable except as noted in HPI and below PMFSH Past Medical History Medical History GERD (gastroesophageal reflux disease) Breast cancer COPD (chronic obstructive pulmonary disease) Stroke Carotid stenosis Esophageal ring Family History Family History Mother Uterine cancer Social History Social History Smoking packs per day: 1 Smoking cigarettes per day: 20.0 Smoking status: Current every day smoker Tobacco type: cigarettes Second hand tobacco smoke exposure: No Alcohol intake: never Substance use: never Substance use type: does not use Do You Feel Safe in your Home?: Yes Lack of Transportation: No Lack of Food: Never True Current Housing: I Have Housing Concerned About Future Housing: No Difficulty Paying Gas/Electric Bills: No Difficulty Paying for Meds: No Currently Unemployed: No Education: High School Diploma/GED Difficulty w/ Childcare or Family Care: No Spiritual care concerns: No Exam 2 Narrative: GENERAL: Elderly but well appearing, thin, non-toxic, in no acute distress. HEAD: Normocephalic, atraumatic. RESPIRATORY: Airway patent, respirations nonlabored. Clear to auscultation bilaterally, no rales, rhonchi, wheezing. CARDIOVASCULAR: Regular rate and rhythm without murmurs, rubs, or gallops. Pedal pulses intact. MUSCULOSKELETAL: Moves all extremities. No gross deformities. L ma with 2 abrasions/skin tears (both approx 1.5cm long), 1 covered with steri strips that appear saturated with serous drainage. Serous drainage coming from unbandaged abrasion as well. L lower leg is diffusely swollen with pitting edema extending into L foot, diffuse red and purple ecchymosis throughout L lower leg with diffuse tenderness throughout leg. Sensation intact. SKIN: Warm, dry, normal color. NEURO: A&O X3. Speech clear. Steady gait. No ataxic movements. PSYCHIATRIC: Appropriate mood and affect. Normal interaction. Course Vital Signs Vital signs: Vital Signs Temperature 97 F L 06/20/24 13:50 Pulse Rate 86 06/20/24 13:50 Respiratory Rate 16 06/20/24 13:50 Blood Pressure 121/58 L 06/20/24 13:50 Pulse Oximetry 98 06/20/24 13:50 Oxygen Delivery Room Air 06/20/24 13:50 Temperature 97 F L 06/20/24 13:50 Pulse Rate 90 06/20/24 19:58 Respiratory Rate 20 06/20/24 19:58 Blood Pressure 139/83 06/20/24 19:58 Pulse Oximetry 97 06/20/24 19:58 Oxygen Delivery Room Air 06/20/24 13:50 MDM - Extremity Injury (Lower) MDM Narrative Medical decision making narrative: Patient presented to ED with concern for infection to left lower leg. Sustained abrasions from fall 2 weeks ago. Now with increased pain, drainage, ecchymosis. Vital signs are stable upon arrival. Patient is afebrile here. No Hx of DM. Laboratory studies are reassuring. No leukocytosis. No electrolyte abnormalities. Normal BG. CRP is mildly elevated. BNP is also mildly elevated, though within normal range per patient's age. Venous Doppler ultrasound negative for DVT. Wounds were cleansed and re-bandaged in the ED. No evidence of abscess. Will be started on antibiotics for cellulitis. Given 1st dose of doxycycline in the ED. Feel patient is otherwise safe for discharge back to the [facility]. Do not feel she requires IV antibiotics/admission at this time. She has not previously been on any antibiotics for this. Recommended close follow-up with PCP for further evaluation. Given strict return precautions should symptoms worsen or continue on antibiotics. Discussed wound care. Will also prescribe antibiotic ointment. Patient will also be given short course of pain medication. She is on oxycodone at home. Son reports she has a few of these pills left, but will run out over the weekend. Her ANIMAL IMPERSONATOR is aware but is unable to see patient until Sunday. Feel this is reasonable to provide a few pills for home. Patient and family in agreement with plan and discharge home. Discharged in stable condition. Medical Records Attestation: I reviewed the patient's medical records. Lab Data Attestation: I reviewed the patient's lab results. 06/20/24 18:18 06/20/24 18:18 Labs: Lab Results 06/20/24 Range/Units 18:18 WBC 8.2 (4.5-10.0) K/mm3 RBC 3.41 L (4.2-5.4) M/mm3 Hgb 10.6 L (12.0-15.0) g/dL Hct 33.1 L (37.0-47.0) % MCV 97.1 (80-100) fl MCH 31.1 (26-34) pg MCHC 32.0 (32-36) g/dl RDW 17.6 H (11.5-14.5) % Plt Count 350 (150-375) k/mm3 MPV 8.9 (7.4-10.4) fl Immature Gran % (Auto) 0.4 (0-0.5) % Neut % (Auto) 65.9 (45.5-73.1) % Lymph % (Auto) 18.0 L (18.3-44.2) % [place] % (Auto) 12.0 H (2.6-8.5) % Eos % (Auto) 3.2 (0-4.4) % Baso % (Auto) 0.5 (0.2-1.2) % Lymph # (Auto) 1.48 (0.9-3.2) K/mm3 [place] # (Auto) 1.0 H (0.1-0.6) K/mm3 Eos # (Auto) 0.3 (0-0.3) K/mm3 Baso # (Auto) 0.0 (0.0-0.1) K/mm3 Abs Immat Gran (auto) 0.03 (0.00-0.031) K/mm3 Absolute Neuts (auto) 5.4 (1.3-6.7) K/mm3 Absolute Nucleated RBC 0.000 (0.0-0.012) K/mm3 Nucleated RBC % 0.0 (0.0-0.2) % Sodium 138 (137-145) mmol/L Potassium 3.7 (3.4-5.0) mmol/L Chloride 104 (98-107) mmol/L Carbon Dioxide 26 (22-30) mmol/L Anion Gap 8 (4-12) mmol/L BUN 14 D (7-17) mg/dL Creatinine 0.78 (0.7-1.0) mg/dL Estim Creat Clear Calc 32 ml/min Estimated GFR > 60 (59 - ) Glucose 89 (65-110) mg/dL Calcium 9.0 (8.4-10.2) mg/dL C-Reactive Protein 5.7 H (<1.0) mg/dL NT-Pro-B Natriuret Pep 605 H (19.9-100) pg/mL Imaging Data Attestation: I personally reviewed and interpreted this imaging study as follows: Radiologist's impression: ITS Impressions Venous Doppler Study 06/20/24 18:50 IMPRESSION: Negative left lower extremity venous US. No deep vein thrombosis. Discharge Plan Discharge Clinical Impression: Cellulitis of left anterior lower leg Abrasion of left lower leg Qualifiers: Encounter type: initial encounter Qualified Code(s): S80.812A - Abrasion, left lower leg, initial encounter Patient Disposition: [facility] Living Condition: Stable Instructions: Antibiotic Form, Cellulitis (ED), Abrasion (ED) Additional Instructions: Take antibiotics as prescribed for infection. Wash wounds daily with soap and water. Apply antibiotic ointment to abrasions. Keep bandaged to avoid irritation or further infection. Change bandages daily or whenever visibly soiled. Recommend Tylenol and your home oxycodone as needed for pain. Keep legs elevated whenever able. Follow-up with primary care doctor for further evaluation. Return to the ED if you experience worsening or severe symptoms, severe redness/drainage/swelling/pain, recurrent injury, persistent fevers, or any other symptoms of concern. Patient Language: [place] Citizen Prescriptions: New bacitracin 500 unit/gram ointment 1 applic topical TID Qty: 14 0RF doxycycline monohydrate 100 mg tablet 100 mg PO BID 7 Days Qty: 14 0RF oxycodone 5 mg tablet 5 mg PO Q6H PRN (Reason: pain) Qty: 5 0RF No Action polyethylene glycol 3350 [Miralax] 17 gram Powder In Packet 17 g PO QAM Qty: 30 0RF bisacodyl [Laxative (bisacodyl)] 5 mg Tablet,Delayed Release (Dr/Ec) 5 mg PO QAM Qty: 30 0RF prednisone 10 mg tablet 5 mg PO DAILY Qty: 20 0RF Rx Instructions: Take 10mg 2 times a day (05/08-05/10) and then 5 mg 2 times a day (05/11- 05/13). amoxicillin-pot clavulanate 875-125 mg tablet 1 tablet PO Q12H Qty: 2 0RF multivitamin Tablet 1 tablet PO DAILY aspirin 81 mg Tablet,Delayed Release (Dr/Ec) 81 mg PO QAM Qty: 60 0RF letrozole [Femara] 2.5 mg Tablet 2.5 mg PO QAM Qty: 60 0RF pantoprazole 40 mg Tablet,Delayed Release (Dr/Ec) 40 mg PO QAM Qty: 60 0RF albuterol sulfate 90 mcg/actuation HFA aerosol inhaler 2 puff inhalation QID PRN (Reason: shortness of breath or wheezing) Qty: 8.5 0RF acetaminophen 325 mg Tablet 650 mg PO Q4H PRN (Reason: Mild Pain (1-3) Or Fever) Qty: 1 0RF hydrocodone-acetaminophen 5-325 mg Tablet 1 tablet PO Q4H PRN (Reason: Pain Rated 4-6) Qty: 20 0RF lidocaine HCl 4 % adhesive patch,medicated 1 patch topical DAILY PRN (Reason: pain) Qty: 30 0RF Rx Instructions: Place on lower back benzocaine-menthol 15-10 mg lozenge 1 monica PO Q6H PRN (Reason: sore throat) Follow-up/Referrals: Reymundo Lee MD [Physician] - Time of Disposition: 19:25
[2024-06-20 18:30] LABS: Basophils Percent Auto 0.5 % (0.2-1.2); Eosinophils Absolute Auto 0.3 K/mm3 (0-0.3); Eosinophils Percent Auto 3.2 % (0-4.4); Hematocrit 33.1 % (37.0-47.0); Hemoglobin 10.6 g/dL (12.0-15.0); Immature Granulocyte Absolute 0.03 K/mm3 (0.00-0.031); Immature Granulocyte Percent A 0.4 % (0-0.5); Lymphocytes Absolute Auto 1.48 K/mm3 (0.9-3.2); Mean Corpuscular Hemoglobin 31.1 pg (26-34); Mean Corpuscular Volume 97.1 fl (80-100); Mean Platelet Volume 8.9 fl (7.4-10.4); Neutrophils Absolute Auto 5.4 K/mm3 (1.3-6.7); Neutrophils Percent Auto 65.9 % (45.5-73.1); Platelet Count Result 350 k/mm3 (150-375); Red Blood Count 3.41 M/mm3 (4.2-5.4); Red Cell Distribution Width 17.6 % (11.5-14.5); White Blood Count 8.2 K/mm3 (4.5-10.0)
[2024-06-20 18:47] LABS: Anion Gap 8 mmol/L (4-12); Blood Urea Nitrogen 14 mg/dL (7-17); CRP 5.7 mg/dL (<1.0); Carbon Dioxide 26 mmol/L (22-30); Chloride 104 mmol/L (98-107); Estimated CRCL calculation 32 ml/min; Estimated Glomerular Filt Rate > 60; Glucose 89 mg/dL (65-110); Potassium 3.7 mmol/L (3.4-5.0); Sodium 138 mmol/L (137-145)
[2024-06-20 18:53] LABS: NT Pro B Type Natriuretic Pept 605 pg/mL (19.9-100)
--- OUTSIDE RECORDS SUMMARY | 2024-06-20 19:04 | XMS_ITS | Encounter Summary ---
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 Answer Date of Assessment Author Status No 05/12/2019 3:06 PM SUPERCALENDER OPERATOR Activ e * Do you have serious [...] on filedocumented in this encounter Care Teams Coldfusion Relationship Specialty Start Date End Date None, ProviderMD PCP - General 05/12/19 07/16/19 None, ProviderMD PCP - General 07/17/19 documented as of this encounter
--- OUTSIDE RECORDS SUMMARY | 2024-06-20 19:04 | XMS_ITS | Encounter Summary ---
Author Organization [facility] Address [address] [place] [address] Care Team Providers Care Hydraulic Technician Name Role Phone Unavailable Primary Care Provider Unavailabl e Encounter Details Date Type Department Care Team (Late st Contact Info) Description 07/19/2015 Nurse Triage Report [facility] Kerri Ramos, RN [address] [place] [address] Social History Tobacco Use Types [...]
--- OUTSIDE RECORDS SUMMARY | 2024-06-20 19:04 | XMS_ITS | Clinical Summary ---
Author Organization [facility] Address [address] [place] [address] Phone Care Team Providers Care Manager Managed Care Name Role Phone Unavailable Primary Care Provider [...] Type Department Care Team Description 06/10/2024 Abstract [facility] Oncology and Hematology - [place] [address] [place] [address] Reymundo Lee MD 05/27/2024 External Device Data [facility] Provider, Abstract 05/12/2024 Abstract [facility] Oncology and Hematology - [place] [address] [place] [address] Reymundo Lee MD 05/01/2024 External Device Data [facility] Provider, Abstract 04/30/2024 External Device Data [facility] Provider, Abstract 04/29/2024 External Device Data [facility] Provider, Abstract 04/25/2024 Abstract [facility] Oncology and Hematology - [place] [address] [place] [address] Reymundo Lee MD 04/23/2024 Orders Only [facility] Oncology and Hematology - [place] [address] [place] [address] Scanning, Provider 04/21/2024 Refill [facility] Oncology and Hematology - [place] [address] [place] [address] Reymundo Lee MD 04/21/2024 Specialty Pharmacy [facility] [address] [place] [id number] Tiffanie Cooper, PHARMACIST 04/17/2024 Refill [facility] Oncology and Hematology - [place] [address] [place] [address] Reymundo Lee MD from Last 3 Months [...] COMPREHENSIVE METABOLIC PANEL Routine 04/23/2024 2:10 PM TRACTOR SWEEPER DRIVER URINE CULTURE Routine 04/23/2024 12:48 PM TRACTOR SWEEPER DRIVER from Last 3 Months Results * COMPREHENSIVE METABOLIC PANEL (04/23/2024 2:10 PM TRACTOR SWEEPER DRIVER) Blood us Provider Scanning CHEMISTRY ORDERABLES Final Res ult * URINE CULTURE (04/23/2024 12:48 PM TRACTOR SWEEPER DRIVER) Urine us Provider Scanning MICROBIOLOGY - GENERAL ORDERAB LES Final Result from Last 3 Months Insurance MEDICARE PART A AND B [employer] Medicare Part D Advance Directives For more information, please contact: [phone] * Full Code (Latest Code Status on File) Date Activated Date Inactivated Comments 07/19/2015 3:53 PM 07/20/2015 5:50 PM
--- OUTSIDE RECORDS SUMMARY | 2024-06-20 19:04 | XMS_ITS | Clinical Summary ---
Author Organization [facility] Address [facility] [place] [address] Care Team Providers Care Grinding Wheel Dresser Name Role Phone None, Provider MD Primary Care Provider Unavaila ble Allergies No known active allergies Medications albuterol sulfate HFA 108 (90 Base) MCG/ACT inhaler Inhale 2 puffs into the lungs 4 (four) times daily. 1 Inhaler 0 Active Respiratory Therapy Supplies (NEBULIZER COMPRESSOR) KitIndications:P ulmonary emphysema, unspecified emphysema type ([facility]) For use with nebulized medications 1 kit 1 0 Active Respiratory Therapy Supplies (NEBULIZER/ADULT MASK) KitIndications:P ulmonary emphysema, unspecified emphysema type ([facility]) For use with nebulizer 1 kit 0 Active ipratropium-albu terol 0.5-2.5 (3) MG/3ML SolutionIndicati ons:Pulmonary emphysema, unspecified emphysema type ([facility]) Take 3 mLs by nebulization 4 (four) times a day. 360 mL 11 0 Active aspirin EC (ASPIRIN EC) 81 MG tablet Take 81 mg by mouth daily. Active Respiratory Therapy Supplies (FLUTTER) DeviceIndication s:COPD exacerbation ([facility]) 1 each by Does not apply route 2 (two) times daily. 1 Device 0 Active ALBUTEROL (2.5 MG/3ML) 0.083% nebulizer solutionIndicati ons:Pulmonary emphysema, unspecified emphysema type ([facility]) INHALE CONTENTS OF 1 VIAL PER NEBULIZER EVERY 6 HOURS NEEDED FOR WHEEZING 375 mL 3 1 Active TRELEGY 100-62.5-25 MCG/INH AEROSOL POWDER, BREATH ACTIVATEDIndicat ions:Pulmonary emphysema, unspecified emphysema type ([facility]) TAKE 1 PUFF BY MOUTH EVERY DAY 1 each 1 Active Active Problems Problem Noted Date Diagnosed Date Thrush 05/29/2019 Pulmonary emphysema, unspeci fied emphysema type ([facility]) 05/29/2019 Chronic respiratory failure with hypoxia ([facility]) 05/29/2019 Cigarette nicotine dependence in remission 05/29 COPD exacerbation ([facility]) 05/19/2019 Gastroesophageal reflux disease without esophagi tis 05/14/2019 Overview (05/14/2019): Hx of GI bleed Acute respiratory failure ([facility]) 06/2019 Dizziness 05/12/2019 Duodenitis without hemorrhage 07/20/2015 [...] Comments Blood Pressure 136/68 02/24/2020 8:58 AM CONSUMER EXPERIENCE CONSULTANT Pulse 98 02/24/2020 8:58 AM CONSUMER EXPERIENCE CONSULTANT Temperature 36.3 C (97.4 F) 02/24/2020 8:58 AM CONSUMER EXPERIENCE CONSULTANT Respiratory Rate 16 02/24/2020 8:58 AM CONSUMER EXPERIENCE CONSULTANT Oxygen Saturation 92% 02/24/2020 8:58 AM CONSUMER EXPERIENCE CONSULTANT Inhaled Oxygen Concentration - - Weight 54.9 kg (121 lb) 02/24/2020 8:58 AM CONSUMER EXPERIENCE CONSULTANT Height 165.1 cm (5' 5 ) 02/24/2020 8:58 AM CONSUMER EXPERIENCE CONSULTANT Body Mass Index 20.14 02/24/2020 8:58 AM CONSUMER EXPERIENCE CONSULTANT Plan of Treatment Health Maintenance Due Date [...] Documents on File Type Date Recorded Patient Web Applications Architect Expl anation Advance Directives and Living Will 05/21/2019 7:24 AM 05/20/19 POLST FORM * DNR (Latest Code Status on File) Date Activated Date Inactivated Comments 05/19/2019 9:23 PM 05/23/2019 9:01 PM * Full Code Date Activated Date Inactivated Comments 05/19/2019 7:50 PM 05/19/2019 9:23 PM * Full Code Date Activated Date Inactivated Comments 05/12/2019 2:59 PM 05/16/2019 4:01 PM Care Teams Grinding Wheel Dresser Relationship Specialty Start Date End Date None, Provider, PCP - General 07/17/19
[2024-06-20 19:58] VITALS: BP 139/83; PULSE 90; RESP 20; O2SAT 97
[2024-06-20] MEDS: DOXYCYCLINE HYCLATE 100 MG TABLET PO (20:18)
[2024-06-20 20:59] VITALS: BP 141/86; PULSE 83; RESP 17; O2SAT 99
== END 2024-06-20 21:01 ==
PROVIDERS: Emergency Provider Physician Assistant
DX: L03.116 Cellulitis of left lower limb (principal); S80.812A Abrasion, left lower leg, initial encounter; R60.0 Localized edema; I65.29 Occlusion and stenosis of unspecified carotid artery; J44.9 Chronic obstructive pulmonary disease, unspecified; K21.9 Gastro-esophageal reflux disease without esophagitis; F17.210 Nicotine dependence, cigarettes, uncomplicated; Z86.73 Personal history of transient ischemic attack (TIA), and cerebral infarction without residual deficits; Z85.3 Personal history of malignant neoplasm of breast; W19.XXXA Unspecified fall, initial encounter
CPT/HCPCS: 36415; 80048; 83880; 85025; 86140; 93971; 99284; A9270